=== PATIENT | female | born 1950 | race Caucasian/White ===

== ENCOUNTER 2020-06-22 14:32 | Outpatient (CLI) | payer MEDICARE, MEDICAID, SELFPAY ==
--- NOTE | ~2020-06-22 | CT_ITS ---
EXAMINATION: CT abdomen pelvis wo con EXAM DATE: 06/22/2020 15:13 INDICATION: Gross hematuria. TECHNIQUE: Spiral CT of the abdomen and pelvis was performed without contrast. Axial, coronal and sag ittal images were reviewed. The dose-length product (DLP) for this examination was 147.49 mGy-cm. T he exposure was tailored according to patient size (auto mA exposure control), and iterative reconstr uction (ASIR) was used as additional dose reduction technique. There is no prior study for compariso n. FINDINGS: There is bilateral nephrocalcinosis. There are larger right-sided calyceal stones measuring up to about 7 mm. Atrophic uterus versus hysterectomy. The bladder is unremarkable. The liver, sp argelia, adrenal glands and pancreas are unremarkable. Gallbladder is unremarkable. No biliary obstruc tion. There is no retroperitoneal or pelvic lymphadenopathy. There is moderate scattered arteriosc lerotic disease. The appendix is not positively visualized. There is no pericecal inflammatory change to suggest appe ndicitis. There is severe colonic diverticulosis. There is no adjacent inflammatory change to sugges t diverticulitis. The stomach and small bowel are unremarkable. There is expected amount of colonic stool. No free intraperitoneal gas. The heart is normal in size. There are no pericardial or ple ural effusions. Lungs are hyperinflated. There are no osteoblastic or osteolytic lesions identified . There is severe disc disease at L2-3. IMPRESSION: 1. Nephrocalcinosis. Bilateral nephrolithiasis, larger stone burden on right. 2. Extensive colonic diverticulosis. Reviewed, dictated and finalized at location A.
== END 2020-06-22 14:33 | disposition home or self-care (01) ==
PROVIDERS: PCP Internal Medicine; Visit Provider Urology
DX: R31.0 Gross hematuria (principal); K57.30 Diverticulosis of large intestine without perforation or abscess without bleeding
CPT/HCPCS: 74176

== ENCOUNTER 2020-12-28 15:49 | Outpatient (CLI) | payer MEDICARE, MEDICAID, SELFPAY ==
--- NOTE | ~2020-12-28 | XR_ITS ---
EXAMINATION: XR abdomen/kub 1V EXAM DATE: 12/28/2020 16:08 INDICATION: Kidney stones, right flank pain. TECHNIQUE: Frontal projection of the upper abdomen, frontal projection lower abdomen/pelvis for inter pretation. Correlation is made to CT abdomen 06/22/2020. FINDINGS: Prior CT scan demonstrated nephrocalcinosis. Some larger right-sided stones are identified up to about 7 mm in size. Can't identify definite smaller calcifications on the left, but there is c opious bowel gas overlying the renal contours and pelvis. Nonobstructive bowel gas pattern. Probable chronic hyperinflation causing the flattened hemidiaphragms with costophrenic blunting. There is no o rganomegaly. There are mild bony degenerative changes. IMPRESSION: 1. Right nephrolithiasis. Reviewed, dictated and finalized at location A. IMPRESSION: 1. Right nephrolithiasis.
== END 2020-12-28 15:50 | disposition home or self-care (01) ==
PROVIDERS: PCP Nurse Practitioner Family; Visit Provider Urology
DX: Z87.442 Personal history of urinary calculi (principal)
CPT/HCPCS: 74018

== ENCOUNTER 2021-11-02 14:17 | Outpatient (CLI) | payer OTHER, SELFPAY ==
--- NOTE | 2021-11-03 14:24 | WPDPFTINT ---
PFT Procedure Performed PFT Procedure Performed Spirometry with Pre/Post Bronchodilator Plethysmography (Lung Vol) Diffusing Cap (DLCO) Flow Vol Loop PFT Interpretation Lung volumes were measured with the body plethysmography method. The elevated RV and FRC are indicative of air trapping. The elevated total lung capacity is indicative of lung hyperinflation. Spirometry showed diminished expiratory flow rates and a diminished FEV1 to FVC ratio 44%, indicative of obstructive airway disease. Following administration of a bronchodilator there was significant increase in the forced vital capacity. Lung diffusion capacity is severely reduced at 23% predicted. Flow volume loop is consistent with severe emphysema. Impression: Severe obstructive airway disease with air trapping, lung hyperinflation, and significant response to bronchodilators on this testing. Severely reduced lung diffusion capacity.
--- NOTE | 2021-11-03 14:28 | WPDSIXMINUTE ---
Six Minute Walk Procedure Procedure Performed Pulmonary Stress Test (6 min walk) Six Minute Walk This 6 minutes walk test was carried out with the patient breathing ambient air. The pre walk oxyhemoglobin saturation was 95%. The patient walked 243 m and stopped 3 times for approximately 10 seconds each time due to shortness of breath and weakness. During the walk the oxyhemoglobin saturation remained over 92%. Impression: No evidence of oxyhemoglobin desaturation on this testing.
== END 2021-11-02 14:18 | disposition home or self-care (01) ==
PROVIDERS: PCP Nurse Practitioner Family; Visit Provider Nurse Practitioner
DX: J44.9 Chronic obstructive pulmonary disease, unspecified (principal); R94.2 Abnormal results of pulmonary function studies
CPT/HCPCS: 94060; 94618; 94726; 94729

== ENCOUNTER 2021-12-14 13:36 | Outpatient (CLI) | payer OTHER, SELFPAY ==
--- NOTE | ~2021-12-14 | CT_ITS ---
EXAMINATION: CT diagnostic chest wo con DATE: 12/14/2021 13:59 INDICATION: Lung nodules TECHNIQUE: Computed tomography (CT) of the chest was performed without intravenous contrast. The dose -length product (DLP) was 135.74 mGy-cm. Automated exposure control and iterative reconstruction tech nique were employed. COMPARISON: PET/CT, 03/01/2017 FINDINGS: There is severe emphysema. There are multiple calcified nodules of the lungs, consistent wi th old granulomatous disease. There is a stable 7 mm noncalcified nodule in the superior segment of t he left lower lobe on image 37. There is a 7 mm nodule of the left lower lobe on image 64 which previ ously measured 3 mm. Scarring is noted in the lung apices. There is no pleural effusion or pneumothor ax. The lungs are free of acute opacities. No pathologically enlarged thoracic lymph nodes are identi fied. The heart size is normal. Punctate calcifications in an otherwise normal spleen likely represen t healed granulomatous disease. There is mild thoracic spondylosis. There is severe upper lumbar spon dylosis. IMPRESSION: 1. 7 mm nodule of the left lower lobe with increase in size since the prior examination, granulomatou s disease versus malignancy. Recommend follow-up CT in 3-6 months. Multiple additional stable pulmona ry nodules with and without calcification likely reflect old granulomatous disease. 2. Severe emphysema. Reviewed, dictated and finalized at location A. IMPRESSION: 1. 7 mm nodule of the left lower lobe with increase in size since the prior exa mination, granulomatous disease versus malignancy. Recommend follow-up CT in 3- 6 months. Multiple additional stable pulmonary nodules with and without calcifi cation likely reflect old granulomatous disease. 2. Severe emphysema.
[2021-12-16 21:46] LABS: Angiotensin Converting Enzyme 17 U/L (9-67)
[2021-12-18 02:53] LABS: Legionella pneumophila Ag Ur Not Detected (Not Detected)
[2021-12-20 11:23] LABS: Blastomyces Antibody Negative
== END 2021-12-14 13:37 | disposition home or self-care (01) ==
PROVIDERS: PCP Nurse Practitioner Family; Visit Provider Nurse Practitioner
DX: R91.8 Other nonspecific abnormal finding of lung field (principal); J43.9 Emphysema, unspecified
CPT/HCPCS: 36415; 71250; 82164; 86331; 86606; 86609; 86612; 86698; 87449

== ENCOUNTER 2022-01-16 08:33 | Emergency (ER) | payer OTHER, SELFPAY ==
--- NOTE | ~2022-01-16 | XR_ITS ---
XR chest 2V DATE: 01/16/2022 09:40 INDICATION: Cough, shortness of breath. History of COPD. TECHNIQUE: PA and lateral views COMPARISON: 12/14/2021 CTA chest FINDINGS: Prominent bilateral hyperinflation flattening the diaphragm, consistent with COPD. No pulmonary infiltrate or consolidation, pleural effusion or pulmonary vascular congestion or pneumo thorax is detected. There is a 7 mm nodular density overlying left midlung, corresponding to the superior segment left lo wer lobe nodule noted on 12/14/2021 CT thorax, for which follow-up CT imaging was [facility] Normal heart size. Aortic arch calcification. Diffuse osteopenia. IMPRESSION: COPD 7 mm left lower lobe nodule seminal follow-up CT imaging in 3 6 months is recommended Reviewed, dictated and finalized at location A. IMPRESSION: COPD 7 mm left lower lobe nodule seminal follow-up CT imaging in 3 6 months is recom mended
[2022-01-16 08:39] VITALS: BP 172/100; PULSE 92; RESP 18; TEMP 36.8; O2SAT 94
[2022-01-16 09:40] LABS: Basophils Percent Auto 0.3 % (0.2-1.2); Eosinophils Percent Auto 0.2 % (0-4.4); Hematocrit 50.1 % (37.0-47.0); Hemoglobin 16.5 g/dL (12.0-15.0); Immature Granulocyte Absolute 0.03 K/mm3 (0.00-0.031); Immature Granulocyte Percent A 0.2 % (0-0.5); Lymphocytes Absolute Auto 1.71 K/mm3 (0.9-3.2); Lymphocytes Percent Auto 13.7 % (18.3-44.2); Mean Corpuscular HGB Conc 32.9 g/dl (32-36); Mean Corpuscular Hemoglobin 31.2 pg (26-34); Mean Corpuscular Volume 94.7 fl (80-100); Mean Platelet Volume 10.2 fl (7.4-10.4); Monocytes Percent Auto 8.3 % (2.6-8.5); Neutrophils Absolute Auto 9.6 K/mm3 (1.3-6.7); Neutrophils Percent Auto 77.3 % (45.5-73.1); Platelet Count Result 206 k/mm3 (150-375); Red Blood Count 5.29 M/mm3 (4.2-5.4); Red Cell Distribution Width 12.6 % (11.5-14.5); White Blood Count 12.5 K/mm3 (4.5-10.0)
[2022-01-16 09:48] LABS: Alanine Aminotransferase 12 U/L (6-35); Albumin Level 4.6 g/dL (3.5-5.1); Alkaline Phosphatase 104 U/L (38-126); Anion Gap 10 mmol/L (8-16); Aspartate Amino Transferase 30 U/L (14-36); Bilirubin,Total 1.3 mg/dL (0.2-1.3); Blood Urea Nitrogen 15 mg/dL (7-17); Calcium 9.7 mg/dL (8.4-10.2); Carbon Dioxide 27 mmol/L (22-30); Chloride 103 mmol/L (98-107); Estimated CRCL calculation 29 ml/min; Estimated Glomerular Filt Rate > 60; Glucose 116 mg/dL (65-110); Potassium 3.6 mmol/L (3.4-5.0); Sodium 140 mmol/L (137-145)
[2022-01-16 10:17] LABS: Appearance Urine Cloudy (Clear); Bilirubin Urine 1+ (Negative); Blood Urine 3+ (Negative); Color Urine Amber (Yellow); Glucose Urine UA Negative (Negative); Ketones Urine 2+ mg/dL (Negative); Leukocyte Esterase Ur Negative LEU/UL (Negative); Nitrate Urine Positive (Negative); Protein Urine 3+ mg/dL (Negative); pH Urine 6.5 (5.0-9.0)
[2022-01-16 10:32] LABS: Add Urine Microscopic? YES; Bacteria Urine 4+ /hpf; Mucus Urine Moderate /lpf; RBC Urine >75 /hpf (0-2); Squamous Epithelial Cell Urine Rare /hpf (Few); WBC Urine 21-30 /hpf
[2022-01-16 10:50] LABS: SARS-CoV-2 RNA PCR Negative
--- NOTE | 2022-01-16 11:24 | ED.GENADULT ---
HPI - General Adult General Chief complaint: Weakness Stated complaint: A lot of trouble with breathing Time Seen by Provider: 01/16/22 09:02 History of Present Illness HPI narrative: Patient is a 71-year-old female who presents the ER with shortness of breath. Endorses cough. No fevers or chills or sweats. Reports exertional fatigue began today. Patient reports there is a sick granddaughter who has cough and congestion like she does but no diagnosis of COVID. Patient also has history of recurrent UTIs. She notes her urine has become darker and more foul-smelling. No dysuria. Related Data Home Medications Medication Instructions Recorded Confirmed albuterol sulfate 01/16/22 cefdinir mg 01/16/22 diltiazem HCl PO 01/16/22 diltiazem HCl [Cardizem CD] PO 01/16/22 ergocalciferol (vitamin D2) 01/16/22 [id number] INHALATION 01/16/22 [Trelegy Ellipta] levalbuterol tartrate INHALATION 01/16/22 pravastatin 01/16/22 rivaroxaban [Xarelto] mg 01/16/22 01/16/22 sotalol [Sotalol AF] 01/16/22 Allergies Allergy/AdvReac Type Severity Reaction Status Date / Time morphine Allergy Unknown ITCHING Verified 12/10/15 06:55 Review of Systems Review of Systems: All systems reviewed & are unremarkable except as noted in HPI and below Constitutional: Constitutional: Denies chills, Reports fatigue and Denies fever(s) ENT: Reports nasal congestion and Denies sore throat Cardiovascular: Cardiovascular: Denies chest pain, Denies rapid heart rate and Denies radiating jaw, neck or arm pain Respiratory: Respiratory: Reports chest congestion, Reports cough, Reports dyspnea and Denies wheezing Gastrointestinal: Gastrointestinal: Denies abdominal pain, Denies nausea and Denies vomiting Genitourinary: Genitourinary: Reports nocturia, Denies dysuria and Denies flank pain PMF Past Medical History Medical History (Updated 01/16/22 @ 11:28 by Mitch Car MD) COPD (chronic obstructive pulmonary disease) Hypercholesterolemia Hypertension Kidney stones Social History Social History (Updated 01/16/22 @ 11:26 by Mitch Car MD) Social History: History of tobacco abuse Exam Narrative: GENERAL: Well-appearing, thin/underweight, and in no acute distress. HEAD: Normocephalic, atraumatic. EYES: PERRLA and EOMI. ENT: Mucous membranes moist. CHEST: Clear to auscultation. No respiratory distress. HEART: Regular rate and rhythm. Normal peripheral pulses. ABDOMEN: Soft, nontender, nondistended. EXTREMITIES: Normal range of motion. No edema. SKIN: Warm, dry, no rash. NEURO: Alert and oriented x3. PSYCH: Normal mood and affect. Course Course Emergency Course: Patient informed of results. Discharged on oral antibiotics. Patient did not like cefdinir as it gave her an upset stomach. Vital Signs Vital signs: Vital Signs Temperature 98.3 F 01/16/22 08:39 Pulse Rate 92 01/16/22 08:39 Respiratory Rate 18 01/16/22 08:39 Blood Pressure 172/100 H 01/16/22 08:39 Pulse Oximetry 94 01/16/22 08:39 Temperature 98.3 F 01/16/22 08:39 Pulse Rate 92 01/16/22 08:39 Respiratory Rate 18 01/16/22 08:39 Blood Pressure 172/100 H 01/16/22 08:39 Pulse Oximetry 94 01/16/22 08:39 Medical Decision Making Vital Signs Vital Signs: Vital Signs Temperature 98.3 F 01/16/22 08:39 Pulse Rate 92 01/16/22 08:39 Respiratory Rate 18 01/16/22 08:39 Blood Pressure 172/100 H 01/16/22 08:39 Pulse Oximetry 94 01/16/22 08:39 Temperature 98.3 F 01/16/22 08:39 Pulse Rate 92 01/16/22 08:39 Respiratory Rate 18 01/16/22 08:39 Blood Pressure 172/100 H 01/16/22 08:39 Pulse Oximetry 94 01/16/22 08:39 Lab Data Result diagrams: 01/16/22 09:34 01/16/22 09:34 Labs: Lab Results 01/16/22 01/16/22 01/16/22 Range/Units 09:34 09:34 09:56 WBC 12.5 H (4.5-10.0) K/mm3 RBC 5.29 (4.2-5.4) M/mm3 Hgb 16.5 H (12.0-
== END 2022-01-16 11:45 | disposition home or self-care (01) ==
PROVIDERS: Emergency Provider Emergency Medicine; PCP Nurse Practitioner Family
DX: N39.0 Urinary tract infection, site not specified (principal); Z20.822 Contact with and (suspected) exposure to COVID-19; J44.9 Chronic obstructive pulmonary disease, unspecified; E78.00 Pure hypercholesterolemia, unspecified; I10 Essential (primary) hypertension; Z87.442 Personal history of urinary calculi; Z87.891 Personal history of nicotine dependence
CPT/HCPCS: 36415; 71046; 80053; 81001; 85025; 87077; 87086; 87186; 99283; C9803; U0003; U0005

== ENCOUNTER 2022-01-17 15:31 | Inpatient (IN) | payer OTHER, SELFPAY ==
[2022-01-17] VITALS (7 sets, daily range): BP systolic 150–176; BP diastolic 82–94; PULSE 72–91; RESP 19–22; TEMP 36.3–36.4; O2SAT 91–94; BMI 13.6
--- NOTE | ~2022-01-17 | CT_ITS ---
EXAMINATION: CT abdomen pelvis wo con DATE: 01/17/2022 20:12 INDICATION: left flank pain TECHNIQUE: Computed tomography (CT) of the abdomen and pelvis was performed without intravenous contr ast. Automated exposure control and iterative reconstruction technique were employed. The dose-length product was 159.91 mGy-cm. COMPARISON: 06/22/2020. FINDINGS: Lower thorax: Centrilobular and tree-in-bud opacities in the right middle lobe. Severe emphysematous change. Heavy coronary artery calcification. Mild dilation of the partially visualized thoracic aorta . Liver: Normal. Biliary/Gallbladder: Gallbladder is normal. No bile duct dilation. Pancreas: No mass or duct dilation. Spleen: Granulomas calcifications. Adrenals:No mass. Kidneys: Ectopic right kidney. Bilateral nephrocalcinosis. Multiple bilateral nonobstructive renal ca lcifications. GI tract: Diverticulosis without definite evidence of diverticulitis. No bowel dilation. Appendix not visualized. Mesentery/Peritoneum: No ascites, mass, or free air. Retroperitoneum: No mass. Minimal fusiform dilation of the proximal abdominal aorta. Abdominal arteri al atherosclerosis. Pelvis: Mild bladder wall thickening. Soft Tissues: Soft tissues and body wall unremarkable. Bones: No acute osseous finding. IMPRESSION: Right middle lobe opacities may reflect atypical infection in the appropriate clinical context. Exam limited by the paucity of abdominopelvic fat such that the distal ureters were not definitively visua lized, however there are no suspicious calcifications in the pathway of the distal left ureter. No de finite evidence of obstructive uropathy. Bladder wall thickening as can be seen with cystitis. Reviewed, dictated and finalized at location K. IMPRESSION: Right middle lobe opacities may reflect atypical infection in the appropriate c linical context. Exam limited by the paucity of abdominopelvic fat such that th e distal ureters were not definitively visualized, however there are no suspici ous calcifications in the pathway of the distal left ureter. No definite eviden ce of obstructive uropathy. Bladder wall thickening as can be seen with cystiti s.
--- NOTE | ~2022-01-17 | XR_ITS ---
EXAMINATION: XR chest 1V Exam Date/Time: 01/17/2022 20:17 CDT CLINICAL HISTORY: worsening shortness of breath,hx copd and smoker Comparison: X-ray chest 01/16/2022. CT abdomen and pelvis 01/17/2022. RESULT: Lines, tubes, and devices: None. Lungs and pleura: Severe hyperinflation. Subtle reticulonodular opacities in the right lung base. Cardiomediastinal silhouette: Stable cardiomediastinal silhouette. Other: No acute osseous or upper abdominal finding. IMPRESSION: Right lower lung opacities may reflect atypical infection in the appropriate clinical context. Reviewed, dictated and finalized at location K. IMPRESSION: Right lower lung opacities may reflect atypical infection in the appropriate cl inical context.
--- NOTE | ~2022-01-17 | XR_ITS ---
EXAM: XR abdomen/kub 1V HISTORY: left flank pain, was diagnosed with UTI yesterday . COMPARISON: CT abdomen and pelvis performed on the same date. FINDINGS: Subtle reticulonodular opacities in the right lung base. Normal bowel gas pattern. No orga nomegaly. Multiple right renal calculi. Known left renal calculi are obscured by bowel gas. Regional bones and soft tissues normal for age. IMPRESSION: Demonstration of right renal calculi. Known left calculi are obscured in this exam. Reviewed, dictated and finalized at location K. IMPRESSION: Demonstration of right renal calculi. Known left calculi are obscur ed in this exam.
[2022-01-17 16:14] LABS: Basophils Percent Auto 0.2 % (0.2-1.2); Hematocrit 55.1 % (37.0-47.0); Hemoglobin 18.1 g/dL (12.0-15.0); Immature Granulocyte Absolute 0.03 K/mm3 (0.00-0.031); Immature Granulocyte Percent A 0.2 % (0-0.5); Lymphocytes Absolute Auto 1.75 K/mm3 (0.9-3.2); Lymphocytes Percent Auto 12.2 % (18.3-44.2); Mean Corpuscular HGB Conc 32.8 g/dl (32-36); Mean Corpuscular Hemoglobin 30.9 pg (26-34); Mean Corpuscular Volume 94.2 fl (80-100); Mean Platelet Volume 10.3 fl (7.4-10.4); Monocytes Percent Auto 6.6 % (2.6-8.5); Neutrophils Absolute Auto 11.6 K/mm3 (1.3-6.7); Neutrophils Percent Auto 80.8 % (45.5-73.1); Platelet Count Result 216 k/mm3 (150-375); Red Blood Count 5.85 M/mm3 (4.2-5.4); Red Cell Distribution Width 12.4 % (11.5-14.5); White Blood Count 14.3 K/mm3 (4.5-10.0)
[2022-01-17 16:24] LABS: Alanine Aminotransferase 19 U/L (6-35); Albumin Level 4.4 g/dL (3.5-5.1); Alkaline Phosphatase 109 U/L (38-126); Anion Gap 9 mmol/L (8-16); Aspartate Amino Transferase 40 U/L (14-36); Bilirubin,Total 1.3 mg/dL (0.2-1.3); Blood Urea Nitrogen 25 mg/dL (7-17); Calcium 9.8 mg/dL (8.4-10.2); Carbon Dioxide 28 mmol/L (22-30); Chloride 99 mmol/L (98-107); Estimated CRCL calculation 30 ml/min; Estimated Glomerular Filt Rate > 60; Glucose 205 mg/dL (65-110); Lipase 74 U/L (23-300); Potassium 4.1 mmol/L (3.4-5.0); Sodium 136 mmol/L (137-145)
--- NOTE | 2022-01-17 19:14 | ECG_ITS ---
Measurements Intervals [place] Rate: 78 P: 36 MO: 105 QRS: 85 QRSD: 94 T: 84 QT: 354 QTc: 404 Interpretive Statements SINUS RHYTHM WITH SHORT MO INTERVAL DELAYED PRECORDIAL R/S TRANSITION BORDERLINE ST-T WAVE ABNORMALITY- DIFFUSE LEADS BASELINE ARTIFACT- I, AVR, V3-V6 BORDERLINE ECG Electronically Signed On 01-18-2022 6:40:21 CDT by Robby Mcgee D.O.
--- NOTE | 2022-01-17 19:18 | ED.BACK ---
HPI - Back Pain/Injury General Chief Complaint: Back Pain/Injury Stated Complaint: feeling SOB, back pain (seen in ER yesterday) Time Seen by Provider: 01/17/22 18:56 Source: patient and family Mode of arrival: wheelchair History of Present Illness HPI Narrative: This is a 71 year old female with history kidney stones and COPD who presents for evaluation of worsening left flank pain and shortness of breath. Patient was evaluated in ED yesterday for left back pain and COPD. She was diagnosed with UTI and discharged with prescription for macrobid. Patient's daughter is at bedside to assist with history. She states patient's back pain got worse last night and she is having worsening trouble breathing due to her pain. PAtient states she has been diagnosed with 2 kidney stones in her left kidney and she is only able to take tylenol at home for pain. PAtient also reports worsening cough that is productive with brown phlegm. She denies fever, chills, nausea or vomiting. Related Data Home Medications Medication Instructions Recorded Confirmed albuterol sulfate 2.5 mg CONTINUOUS NEBULIZATION Q4H 01/16/22 01/17/22 PRN diltiazem HCl 120 mg PO DAILY 01/16/22 01/17/22 ergocalciferol (vitamin D2) 1,250 mcg PO Q4AVTJE 01/16/22 01/17/22 dckuftvyrnn-btwjtmxhk-owogmjlq 1 inh INHALATION DAILY 01/16/22 01/17/22 [Trelegy Ellipta] levalbuterol tartrate 2 puff INHALATION Q4H PRN 01/16/22 01/17/22 pravastatin 20 mg PO DAILY 01/16/22 01/17/22 rivaroxaban [Xarelto] 15 mg PO DAILY 01/16/22 01/17/22 sotalol [Sotalol AF] 80 mg PO HS 01/16/22 01/17/22 sotalol [Sotalol AF] 40 mg PO QAM 01/17/22 01/17/22 Allergies Allergy/AdvReac Type Severity Reaction Status Date / Time morphine Allergy Unknown ITCHING Verified 12/10/15 06:55 Review of Systems Review of Systems: All systems reviewed & are unremarkable except as noted in HPI and below Constitutional: Constitutional: Denies chills, Reports fatigue and Denies fever(s) Cardiovascular: Cardiovascular: Reports chest pain (constant daily) and Denies radiating jaw, neck or arm pain Respiratory: Respiratory: Reports cough, Reports dyspnea and Denies wheezing Gastrointestinal: Gastrointestinal: Reports abdominal pain, Denies diarrhea, Denies nausea and Denies vomiting Genitourinary: Genitourinary: Reports flank pain Musculoskeletal: Musculoskeletal: Reports back pain [facility] Past Medical History Medical History (Updated 01/18/22 @ 07:36 by Kelsey Weeks MD) Atrial fibrillation COPD (chronic obstructive pulmonary disease) PFT 11/02/2021: Severe obstructive airway disease with air trapping, lung hyperinflation and significant response to bronchodilators. Severely reduced diffusion capacity Glaucoma Hypercholesterolemia Hypertension Kidney stones Polycythemia secondary to hypoxia Pulmonary nodule 7 mm left lower lobe nodule increased in size compared to prior exam 2016 with recommended follow-up CT scan in March-April Surgical History Surgical History (Updated 01/18/22 @ 01:06 by Maritza Bueno DO) H/O cystoscopy History of 2 sections Family History Family History Father Acute myocardial infarction Hypertension Mother Chronic obstructive pulmonary disease Sibling Chronic obstructive pulmonary disease Hypertension Pulmonary hypertension Social History Social History (Updated 01/18/22 @ 06:25 by Maritza Bueno DO) Social History: She reports that her daughter and 2 grand children recently moved in with her. 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 She denies any significant alcohol use or illicit substance use. Code status: Full code Surrogate decision maker: Diana (daughter) Smoking packs per day: 1 Smoking cigarettes per day: 20.0 Years smoked: 52 Smoking pack-years: 52.00 Smoking status: Former smoker Alcohol intake: never Substance use: ne
[2022-01-17 19:20] LABS: Appearance Urine Clear (Clear); Bilirubin Urine 1+ (Negative); Blood Urine 3+ (Negative); Color Urine Yellow (Yellow); Glucose Urine UA Negative (Negative); Ketones Urine 2+ mg/dL (Negative); Leukocyte Esterase Ur Negative LEU/UL (Negative); Nitrate Urine Negative (Negative); Protein Urine 3+ mg/dL (Negative); Specific Grav Ur >= 1.030 (1.001-1.035); Urobilinogen Urine 0.2 mg/dL (<2.0); pH Urine 5.5 (5.0-9.0)
[2022-01-17 19:27] LABS: Mucus Urine Rare /lpf; RBC Urine >75 /hpf (0-2); Squamous Epithelial Cell Urine Few /hpf (Few); WBC Urine 31-50 /hpf
[2022-01-17 19:34] LABS: Add Urine Microscopic? YES
[2022-01-17] MEDS: ALBUTEROL SULFATE NEB 2.5 MG/3 ML INH 5 MG INHALATION (19:47)
[2022-01-17] MEDS: IPRATROPIUM BR 0.02% INH SOLN 0.5 MG/2.5 ML VIAL INHALATION (19:47)
[2022-01-17 19:51] LABS: Alveolar/Arterial O2 Gradient 34.8 mmHg; Base Excess ABG -2.1 mEq/l (+/-2.0); Carboxyhemoglobin 2.6 % THb (0-2.0); Fractional Inspired Oxygen 21 %; HCO3 ABG 23.5 mEq/l (22.0-26.0); Methemoglobin ABG 0.3 %THb (0-1.5); Oxygen Content ABG 21.4 %vol (16.0-22.0); Oxygen Saturation ABG 91.4 % (95.0-100.0); Oxyhemoglobin 89.2 % THb (90.0-100.0); PCO2 ABG 42.9 mmHg (35.0-45.0); PO2 ABG 63.6 mmHg (80.0-100.0); PO2 FiO2 Ratio Arterial Blood 3.03 %; Reduced Hemoglobin 7.9 %THb (0-5.0); Total Hemoglobin 17.1 g/dL (12.0-18.0); pH ABG 7.356 (7.350-7.450)
[2022-01-17 19:52] LABS: Device ROOM AIR; Modified Allen's Test Pass; Site Drawn LEFT RADIAL
[2022-01-17 20:21] LABS: Lactic Acid Reflex 2.5 mmol/L (0.7-2.0)
[2022-01-17] MEDS: methylPREDNISolone SOD SUCC 125 MG VIAL IV PUSH (20:27)
[2022-01-17] MEDS: ONDANSETRON INJ 4 MG/2 ML VIAL IV PUSH (20:27)
[2022-01-17] MEDS: SODIUM CHLORIDE 0.9% IV 1,000 ML 999 ML IV CONT ×2 (20:28→22:17)
[2022-01-17 20:59] LABS: INR 1.6; Prothrombin Time 18.3 Seconds (11.1-14.7)
[2022-01-17 21:32] LABS: SARS-CoV-2 RNA PCR Negative
--- NOTE | 2022-01-17 22:23 | PC.NURSE ---
Faxed up [facility] at [phone]
[2022-01-17] MEDS: SOTALOL HCL 40 MG TABLET PO (23:01)
[2022-01-17] MEDS: RIVAROXABAN 15 MG TABLET PO (23:01)
--- NOTE | 2022-01-17 23:07 | ADMGEN ---
This patient, Sofi Zeng, was admitted to 2 Medical Room 242-. Patient/family oriented to hospital policies and general routines including ID bracelet, bed and alarms, visiting hours, pain management, procedures, bathroom and other care routines, personal items, smoking policy, room service/diet, and visiting hours. Information on how to activate the Rapid Response Team has been discussed. Patient/Family are encouraged to report perceived risks to care and to ask questions if they do not understand what they are told or what they should do.
[2022-01-17 23:10] LABS: Reflex Lactic Acid Yes or No Add Lactic
[2022-01-17] MEDS: SODIUM CHLORIDE 0.9% IV 1,000 ML 75 ML IV CONT (23:31)
[2022-01-17 23:50] LABS: Lactic Acid 1.5 mmol/L (0.7-2.0)
[2022-01-18] VITALS (21 sets, daily range): BP systolic 122–178; BP diastolic 56–91; PULSE 59–98; RESP 16–22; TEMP 35.9–36.7; O2SAT 91–100; BMI 13.6
[2022-01-18] MEDS: methylPREDNISolone SOD SUCC 40 MG VIAL IV PUSH ×5 (00:33→23:01)
--- NOTE | 2022-01-18 00:57 | PM.IMHP ---
H&P: HPI History of Present Illness Date/Time: 01/18/22 00:57 Chief Complaint: Left back pain, hard time breathing Narrative: 71-year-old female with a past medical history of COPD, atrial fibrillation and hyperlipidemia who presented to the ER from home with back pain and shortness of breath. The patient initially presented to the ER on the with nasal congestion, sinus congestion and chest congestion with shortness of breath and cough for 1 week. She is not having any measured fevers but reports that she felt as if she had a subjective fever a few days ago.. She had been around her granddaughter who had been sick with cough and congestion but was negative for COVID. The patient had noticed that her urine had been darker than usual at that time and was foul-smelling so she had a UA performed which demonstrated consistent with UTI. She denied any dysuria. She reports chronic urinary frequency and urgency with incontinence. Her urine culture since that time has grown out greater than 100 thousand colonies of E coli. The patient was discharged home on nitrofurantoin. She came back to the ER on the as she was having bilateral upper back pain and she was concerned that she may have a kidney stone. She does have a history of nonobstructing right renal stones in the past and she was afraid her pain was due to kidney stones.. She reported that the pain in her back was present on both sides but left greater than right. Her pain was not worse with deep breathing. She reports that she always sleeps sitting upright. However, over the last couple of weeks she has been having increasing orthopnea and paroxysmal nocturnal dyspnea. She has been waking up panic being gasping for air. She has had a cough that has been productive of small amounts light brown sputum. She reports that her symptoms have been briefly relieved by Q 4 nebulizer treatments. She reports occasional right ankle swelling. She reports that the ankle swelling gets better when she gets up and walks. She has no swelling at this time. The patient is cachectic on exam. She states that her heaviest weight ever was 102 lb. She has had a progressive weight loss over the last 4 years. She reports that over the last month she has been having upper abdominal discomfort and nausea with eating. She states that she thinks that is because she is eating too much at once. Her daughter has bought her different types of protein shakes but the patient does not like ice cream or milk shakes. She has been trying eat small frequent meals. She states that she felt so bad yesterday that she only had eaten grapes all day. She reports feeling chronically constipated. She does have a bowel movement each day but is usually a firm bowel movement in usually takes her a lot of effort to passed stool. She states that this is also been going on for about 4 years. She occasionally will have difficulty swallowing food but does not feel as if the food is getting stuck. She states that his takes more effort to swallow at times. This is not changed significantly from her baseline. She denies any heartburn symptoms or dyspepsia. She denies any hematochezia or melena. She reports that she frequently feels fatigued. Over the last week she has been having episodes of hypoxia with with activity. Her oxygen saturations have been dropping down to the mid 80s with activity. She had a 6 minute walk test November 03, 2021 that was negative. She denies having any palpitations or symptoms of atrial fibrillation. She was last admitted the hospital at [facility] in September for atrial fibrillation and required cardioversion. She is vaccinated against COVID with 2 doses of Moderna. She was due for her booster in July but was not able to get it for some reason. She subsequently was tested for COVID while she was hospitalized at [facility] in September and found to be positive at that time. She has not yet received her COVID boost
[2022-01-18] MEDS: IPRATROPIUM BR 0.02% INH SOLN 0.5 MG/2.5 ML VIAL INHALATION ×4 (03:04→20:38)
[2022-01-18] MEDS: ALBUTEROL SULFATE NEB 2.5 MG/3 ML INH 5 MG INHALATION ×4 (03:04→20:39)
[2022-01-18 05:25] LABS: Basophils Percent Auto 0.1 % (0.2-1.2); Hematocrit 47.8 % (37.0-47.0); Hemoglobin 15.5 g/dL (12.0-15.0); Immature Granulocyte Absolute 0.06 K/mm3 (0.00-0.031); Immature Granulocyte Percent A 0.4 % (0-0.5); Lymphocytes Absolute Auto 0.91 K/mm3 (0.9-3.2); Mean Corpuscular HGB Conc 32.4 g/dl (32-36); Mean Corpuscular Hemoglobin 31.1 pg (26-34); Mean Corpuscular Volume 95.8 fl (80-100); Mean Platelet Volume 10.7 fl (7.4-10.4); Monocytes Absolute Auto 0.2 K/mm3 (0.1-0.6); Monocytes Percent Auto 1.3 % (2.6-8.5); Neutrophils Absolute Auto 13.9 K/mm3 (1.3-6.7); Neutrophils Percent Auto 92.2 % (45.5-73.1); Platelet Count Result 198 k/mm3 (150-375); Red Blood Count 4.99 M/mm3 (4.2-5.4); Red Cell Distribution Width 12.3 % (11.5-14.5); White Blood Count 15.1 K/mm3 (4.5-10.0)
[2022-01-18 05:38] LABS: Alanine Aminotransferase 11 U/L (6-35); Albumin Level 3.6 g/dL (3.5-5.1); Alkaline Phosphatase 87 U/L (38-126); Anion Gap 7 mmol/L (8-16); Aspartate Amino Transferase 30 U/L (14-36); Bilirubin,Total 0.5 mg/dL (0.2-1.3); Blood Urea Nitrogen 20 mg/dL (7-17); Calcium 8.9 mg/dL (8.4-10.2); Carbon Dioxide 24 mmol/L (22-30); Chloride 107 mmol/L (98-107); Estimated CRCL calculation 37 ml/min; Estimated Glomerular Filt Rate > 60; Glucose 143 mg/dL (65-110); Sodium 138 mmol/L (137-145)
[2022-01-18 05:50] LABS: Hemoglobin A1C 5.7 % (<5.7)
[2022-01-18] MEDS: SODIUM CHLORIDE 0.9% IV 1,000 ML 75 ML IV CONT (08:22)
[2022-01-18] MEDS: SOTALOL HCL 40 MG TABLET PO (08:23)
[2022-01-18] MEDS: FLUTICASONE/UMECLIDIN/VILANTER 100-62.5-25 MCG ELLIPTA 1 PUFF INHALATION (08:53)
--- NOTE | 2022-01-18 10:27 | PM.IMPN ---
Progress Note: A&P Assessment and Plan (1) Right lower lobe pneumonia: Code(s): J18.9 - Pneumonia, unspecified organism Status: Acute Assessment and Plan: Patient presented with increased shortness of breath and cough CXR showed right lower lung opacities Continue ceftriaxone azithromycin COVID-19 negative Will check influenza, urinary legionella and pneumococcal antigens Supportive care. Expectorants, antipyretics, incentive spirometry, Cornet valve Currently requiring 2 L supplemental oxygen per nasal cannula. Monitor O2 sats and wean oxygen to goal, 92% or above (2) COPD with acute exacerbation: Code(s): J44.1 - Chronic obstructive pulmonary disease with (acute) exacerbation Status: Acute Assessment and Plan: Patient wheezing on presentation, consistent with COPD exacerbation Continue IV Solu-Medrol Schedule DuoNebs q.6h Continue home Trelegy (3) E. coli UTI: Code(s): N39.0 - Urinary tract infection, site not specified; B96.20 - Unspecified Escherichia coli [E. coli] as the cause of diseases classified elsewhere Status: Acute Assessment and Plan: Urine culture from 01/16/2022 with >100k colonies E coli Continue ceftriaxone (4) Hyperglycemia: Code(s): R73.9 - Hyperglycemia, unspecified Status: Acute Assessment and Plan: Blood sugar elevated to 205 secondary to steroids A1c is 5.7 Patient reports history of hyperglycemia while on steroids Fasting glucose 143 this morning. Continue to monitor on AM labs (5) Polycythemia secondary to hypoxia: Code(s): D75.1 - Secondary polycythemia Status: Inactive Assessment and Plan: Place edema worsened from baseline but has improved following rehydration Hemoglobin 15.5 today, hematocrit 47.8 Monitor CBC She appears to be adequately rehydrated and is euvolemic on exam. Will discontinue IV fluids given respiratory illness (6) Severe protein-calorie malnutrition: Code(s): E43 - Unspecified severe protein-calorie malnutrition Status: Acute Assessment and Plan: Patient was severe protein calorie malnutrition secondary to poor intake Continue with regular diet and encourage high-protein foods Dietary supplements Appreciate dietary screening Subjective Date/time seen: 01/18/22 10:27 Interval history: Date of service: 01/18/2022 Sofi Zeng is a 71-year-old female with a history of atrial fibrillation on chronic anticoagulation, COPD, hypertension, hyperlipidemia, and polycythemia who is seen in follow-up for pneumonia and COPD exacerbation. She is still not feeling well today and notes no significant improvement. She endorses shortness of breath, nasal congestion, chest congestion, occasional wheezing, cough occasionally productive of thick clear mucus though she notes she is having difficulty expect rating. She complains of conversational dyspnea as well as KENNEDY with minimal exertion. She is only going from the bed to the bedside commode and has not really been having any more activities than this. She endorses orthopnea but denies PND. She denies abdominal pain, nausea, or vomiting. She is tolerating her breakfast. Denies any issues with urination. Review of Systems Review of Systems: All systems reviewed & are unremarkable except as noted in HPI and below Exam Narrative: General: Cachectic 71-year-old female, sitting up at the bedside, comfortable, NARD Neuro: awake, alert and oriented x4, speech clear, no focal neuro deficits noted HEENMT: normocephalic, atraumatic, EOMI, sclerae anicteric, poor dentition Respiratory: Diminished breath sounds bilaterally without wheezes, nonlabored breathing Cardio: regular rate, regular rhythm with S1-S2 Abdomen: nondistended, normoactive bowel sounds, soft, nontender to palpation Extremities: no edema, erythema, or tenderness to palpation, DP pulses 2+ bilaterally Skin: no rashes or
[2022-01-18 12:09] LABS: Influenza A QL RT-PCR Negative (Negative); Influenza B QL RT-PCR Negative (Negative)
[2022-01-18] MEDS: guaiFENesin 12 HR 600 MG TABCR PO ×2 (13:31→20:07)
[2022-01-18] MEDS: RIVAROXABAN 15 MG TABLET PO (20:08)
[2022-01-18] MEDS: SOTALOL HCL 80 MG TABLET PO (20:08)
[2022-01-18] MEDS: PRAVASTATIN SODIUM 20 MG TABLET PO (20:08)
[2022-01-19] VITALS (21 sets, daily range): BP systolic 118–148; BP diastolic 50–70; PULSE 63–87; RESP 14–20; TEMP 36.3–36.7; O2SAT 92–98
[2022-01-19] MEDS: IPRATROPIUM BR 0.02% INH SOLN 0.5 MG/2.5 ML VIAL INHALATION ×4 (02:27→20:02)
[2022-01-19] MEDS: ALBUTEROL SULFATE NEB 2.5 MG/3 ML INH 5 MG INHALATION ×4 (02:27→20:01)
[2022-01-19] MEDS: methylPREDNISolone SOD SUCC 40 MG VIAL IV PUSH ×3 (05:16→21:01)
[2022-01-19 05:49] LABS: Hematocrit 41.1 % (37.0-47.0); Hemoglobin 13.3 g/dL (12.0-15.0); Mean Corpuscular HGB Conc 32.4 g/dl (32-36); Mean Corpuscular Hemoglobin 31.2 pg (26-34); Mean Corpuscular Volume 96.5 fl (80-100); Mean Platelet Volume 10.8 fl (7.4-10.4); Platelet Count Result 206 k/mm3 (150-375); Red Blood Count 4.26 M/mm3 (4.2-5.4); Red Cell Distribution Width 12.5 % (11.5-14.5); White Blood Count 24.1 K/mm3 (4.5-10.0)
[2022-01-19] MEDS: guaiFENesin 12 HR 600 MG TABCR PO ×2 (08:30→21:00)
[2022-01-19] MEDS: SOTALOL HCL 40 MG TABLET PO (08:31)
[2022-01-19] MEDS: FLUTICASONE/UMECLIDIN/VILANTER 100-62.5-25 MCG ELLIPTA 1 PUFF INHALATION (08:56)
[2022-01-19 09:27] LABS: Anion Gap 4 mmol/L (8-16); Blood Urea Nitrogen 23 mg/dL (7-17); Calcium 9.2 mg/dL (8.4-10.2); Carbon Dioxide 26 mmol/L (22-30); Chloride 108 mmol/L (98-107); Estimated CRCL calculation 37 ml/min; Estimated Glomerular Filt Rate > 60; Glucose 123 mg/dL (65-110); Potassium 3.7 mmol/L (3.4-5.0); Sodium 138 mmol/L (137-145)
--- NOTE | 2022-01-19 15:42 | P.PNIM_ITS ---
Progress Note: A&P Assessment and Plan (1) Right lower lobe pneumonia: Code(s): J18.9 - Pneumonia, unspecified organism Status: Acute Assessment and Plan: Patient presented with increased shortness of breath and cough * CXR showed right lower lung opacities * Transition antibiotics to IV Levaquin * COVID-19 negative. Influenza negative. * Urinary legionella and pneumococcal antigens * Supportive care. Expectorants, antipyretics, incentive spirometry, Cornet valve * Currently requiring 2 L supplemental oxygen per nasal cannula. Monitor O2 sats and wean oxygen to goal, 92% or above (2) COPD with acute exacerbation: Code(s): J44.1 - Chronic obstructive pulmonary disease with (acute) exacerbation Status: Acute Assessment and Plan: Patient wheezing on presentation, consistent with COPD exacerbation * Continue IV Solu-Medrol, weaned to 40 mg q.8h * Scheduled DuoNebs q.6h * Continue home Trelegy * Increase in WBC noted secondary to IV steroids (3) E. coli UTI: Code(s): N39.0 - Urinary tract infection, site not specified; B96.20 - Unspecified Escherichia coli [E. coli] as the cause of diseases classified elsewhere Status: Acute Assessment and Plan: Urine culture from 01/16/2022 with >100k colonies E coli and urine culture from 01/17/2022 with >100k Pseudomonas * Susceptibility report pending from Pseudomonas UTI * Transition to levofloxacin for coverage. This is appropriate based on E coli UTI (4) Hyperglycemia: Code(s): R73.9 - Hyperglycemia, unspecified Status: Acute Assessment and Plan: Blood sugar was slightly elevated following 1st dose of IV steroids * A1c is 5.7 * Patient reports history of hyperglycemia while on steroids * Fasting glucose 123 this morning. Continue to monitor on AM labs (5) Polycythemia secondary to hypoxia: Code(s): D75.1 - Secondary polycythemia Status: Inactive Assessment and Plan: Place edema worsened from baseline but has improved following rehydration * Hemoglobin and hematocrit within normal limits today * Monitor CBC (6) Severe protein-calorie malnutrition: Code(s): E43 - Unspecified severe protein-calorie malnutrition Status: Acute Assessment and Plan: Patient with severe protein calorie malnutrition secondary to poor intake * Continue with regular diet and encourage high-protein foods * Dietary supplements * Appreciate dietary screening (7) Atrial fibrillation: Code(s): I48.91 - Unspecified atrial fibrillation Status: Inactive Assessment and Plan: Rate is controlled * Continue Xarelto for stroke prophylaxis * Continue sotalol * Aware of QT prolonging interaction between sotalol and Levaquin. QTc reviewed and is appropriate. Patient will be monitored on telemetry. * Telemetry reviewed and patient is in sinus rhythm Subjective Date/time seen: 01/19/22 15:42 Interval history: Date of service: 01/19/2022 Sofi Zeng is a 71-year-old female with a history of atrial fibrillation on chronic anticoagulation, COPD, hypertension, hyperlipidemia, and polycythemia who is seen in follow-up for pneumonia and COPD exacerbation. She reports feeling poorly today. She is still feeling short of breath and states she is maybe a little bit worse than yesterday. She reports very minimal exertion today so she is unsure about worsened KENNEDY. She denies wheezing. She endorses cough productive of brownish colored sputum. She reports she has been feeling hot and cold f
--- NOTE | 2022-01-19 15:42 | PM.IMPN ---
Progress Note: A&P Assessment and Plan (1) Right lower lobe pneumonia: Code(s): J18.9 - Pneumonia, unspecified organism Status: Acute Assessment and Plan: Patient presented with increased shortness of breath and cough CXR showed right lower lung opacities Transition antibiotics to IV Levaquin COVID-19 negative. Influenza negative. Urinary legionella and pneumococcal antigens Supportive care. Expectorants, antipyretics, incentive spirometry, Cornet valve Currently requiring 2 L supplemental oxygen per nasal cannula. Monitor O2 sats and wean oxygen to goal, 92% or above (2) COPD with acute exacerbation: Code(s): J44.1 - Chronic obstructive pulmonary disease with (acute) exacerbation Status: Acute Assessment and Plan: Patient wheezing on presentation, consistent with COPD exacerbation Continue IV Solu-Medrol, weaned to 40 mg q.8h Scheduled DuoNebs q.6h Continue home Trelegy Increase in WBC noted secondary to IV steroids (3) E. coli UTI: Code(s): N39.0 - Urinary tract infection, site not specified; B96.20 - Unspecified Escherichia coli [E. coli] as the cause of diseases classified elsewhere Status: Acute Assessment and Plan: Urine culture from 01/16/2022 with >100k colonies E coli and urine culture from 01/17/2022 with >100k Pseudomonas Susceptibility report pending from Pseudomonas UTI Transition to levofloxacin for coverage. This is appropriate based on E coli UTI (4) Hyperglycemia: Code(s): R73.9 - Hyperglycemia, unspecified Status: Acute Assessment and Plan: Blood sugar was slightly elevated following 1st dose of IV steroids A1c is 5.7 Patient reports history of hyperglycemia while on steroids Fasting glucose 123 this morning. Continue to monitor on AM labs (5) Polycythemia secondary to hypoxia: Code(s): D75.1 - Secondary polycythemia Status: Inactive Assessment and Plan: Place edema worsened from baseline but has improved following rehydration Hemoglobin and hematocrit within normal limits today Monitor CBC (6) Severe protein-calorie malnutrition: Code(s): E43 - Unspecified severe protein-calorie malnutrition Status: Acute Assessment and Plan: Patient with severe protein calorie malnutrition secondary to poor intake Continue with regular diet and encourage high-protein foods Dietary supplements Appreciate dietary screening (7) Atrial fibrillation: Code(s): I48.91 - Unspecified atrial fibrillation Status: Inactive Assessment and Plan: Rate is controlled Continue Xarelto for stroke prophylaxis Continue sotalol Aware of QT prolonging interaction between sotalol and Levaquin. QTc reviewed and is appropriate. Patient will be monitored on telemetry. Telemetry reviewed and patient is in sinus rhythm Subjective Date/time seen: 01/19/22 15:42 Interval history: Date of service: 01/19/2022 Sofi Zeng is a 71-year-old female with a history of atrial fibrillation on chronic anticoagulation, COPD, hypertension, hyperlipidemia, and polycythemia who is seen in follow-up for pneumonia and COPD exacerbation. She reports feeling poorly today. She is still feeling short of breath and states she is maybe a little bit worse than yesterday. She reports very minimal exertion today so she is unsure about worsened KENNEDY. She denies wheezing. She endorses cough productive of brownish colored sputum. She reports she has been feeling hot and cold flashes. She denies dysuria, hematuria, urgency, or frequency. States a couple days ago her urine was dark colored. She has not looked at what color her urine is today. She did participated in therapy today and seemed to tolerate this well. She denies dizziness, lightheadedness, weakness. She is eating a bit more but still with overall poor intake. Reports eating about a quarter of her breakfast and lunch. Review
[2022-01-19] MEDS: RIVAROXABAN 15 MG TABLET PO (21:00)
[2022-01-19] MEDS: PRAVASTATIN SODIUM 20 MG TABLET PO (21:00)
[2022-01-19] MEDS: SOTALOL HCL 80 MG TABLET PO (21:01)
[2022-01-20] VITALS (19 sets, daily range): BP systolic 153–164; BP diastolic 72–81; PULSE 59–85; RESP 14–18; TEMP 36.2–37; O2SAT 93–98
[2022-01-20] MEDS: ALBUTEROL SULFATE NEB 2.5 MG/3 ML INH 5 MG INHALATION ×4 (02:00→19:57)
[2022-01-20] MEDS: IPRATROPIUM BR 0.02% INH SOLN 0.5 MG/2.5 ML VIAL INHALATION ×4 (02:00→19:58)
[2022-01-20] MEDS: methylPREDNISolone SOD SUCC 40 MG VIAL IV PUSH ×3 (05:34→16:50)
[2022-01-20 05:58] LABS: Hematocrit 39.2 % (37.0-47.0); Hemoglobin 12.5 g/dL (12.0-15.0); Mean Corpuscular HGB Conc 31.9 g/dl (32-36); Mean Corpuscular Hemoglobin 30.6 pg (26-34); Mean Corpuscular Volume 95.8 fl (80-100); Mean Platelet Volume 10.8 fl (7.4-10.4); Platelet Count Result 222 k/mm3 (150-375); Red Blood Count 4.09 M/mm3 (4.2-5.4); Red Cell Distribution Width 12.4 % (11.5-14.5); White Blood Count 21.8 K/mm3 (4.5-10.0)
[2022-01-20 06:18] LABS: Anion Gap 4 mmol/L (8-16); Blood Urea Nitrogen 27 mg/dL (7-17); Calcium 9.1 mg/dL (8.4-10.2); Carbon Dioxide 29 mmol/L (22-30); Chloride 107 mmol/L (98-107); Estimated CRCL calculation 32 ml/min; Estimated Glomerular Filt Rate > 60; Glucose 144 mg/dL (65-110); Potassium 3.6 mmol/L (3.4-5.0); Sodium 140 mmol/L (137-145)
[2022-01-20 07:15] LABS: Lymphocytes Absolute Manual 0.43 K/mm3 (1.1-4.5); Neutrophils Percent Manual 98 % (46-73); Platelet Estimate Adequate (Adequate); Total Cells Counted 100
--- NOTE | 2022-01-20 08:21 | PCPTNOTE ---
Patient refused treatment this session due to patient wanting breathing treatment prior to therapy. RN aware.
[2022-01-20] MEDS: FLUTICASONE/UMECLIDIN/VILANTER 100-62.5-25 MCG ELLIPTA 1 PUFF INHALATION (08:27)
[2022-01-20] MEDS: SOTALOL HCL 40 MG TABLET PO (08:33)
[2022-01-20] MEDS: guaiFENesin 12 HR 600 MG TABCR PO ×2 (08:34→20:26)
--- NOTE | 2022-01-20 14:37 | P.PNIM_ITS ---
Progress Note: A&P Assessment and Plan (1) Right lower lobe pneumonia: Code(s): J18.9 - Pneumonia, unspecified organism Status: Acute Assessment and Plan: Patient presented with increased shortness of breath and cough * CXR showed right lower lung opacities * Continue IV Levaquin * COVID-19 negative. Influenza negative. * Urinary legionella and pneumococcal antigens pending * Supportive care. Expectorants, antipyretics, incentive spirometry, Cornet valve * Currently requiring 2 L supplemental oxygen per nasal cannula. Monitor O2 sats and wean oxygen to goal, 92% or above (2) COPD with acute exacerbation: Code(s): J44.1 - Chronic obstructive pulmonary disease with (acute) exacerbation Status: Acute Assessment and Plan: Patient wheezing on presentation, consistent with COPD exacerbation * Continue IV Solu-Medrol, weaned to 40 mg q.12h. * Scheduled DuoNebs q.6h * Continue home Trelegy * Increase in WBC noted secondary to IV steroids (3) E. coli UTI: Code(s): N39.0 - Urinary tract infection, site not specified; B96.20 - Unspecified Escherichia coli [E. coli] as the cause of diseases classified elsewhere Status: Acute Assessment and Plan: Urine culture from 01/16/2022 with >100k colonies E coli and urine culture from 01/17/2022 with >100k Pseudomonas * Continue IV Levaquin which is appropriate for both E. coli and pseudomonas based on susceptibility report (4) Hyperglycemia: Code(s): R73.9 - Hyperglycemia, unspecified Status: Acute Assessment and Plan: Blood sugar was slightly elevated following 1st dose of IV steroids * A1c is 5.7 * Patient reports history of hyperglycemia while on steroids * Fasting glucose 144 this morning. Continue to monitor on AM labs. Expect improvement as steroids are weaned. (5) Polycythemia secondary to hypoxia: Code(s): D75.1 - Secondary polycythemia Status: Inactive Assessment and Plan: Polycythemia worsened from baseline but improved following gentle rehydration * Hemoglobin and hematocrit within normal limits today * Monitor CBC (6) Severe protein-calorie malnutrition: Code(s): E43 - Unspecified severe protein-calorie malnutrition Status: Acute Assessment and Plan: Patient with severe protein calorie malnutrition secondary to poor intake * Continue with regular diet and encourage high-protein foods * Dietary supplements * Appreciate dietary screening (7) Atrial fibrillation: Code(s): I48.91 - Unspecified atrial fibrillation Status: Inactive Assessment and Plan: Rate is controlled * Continue Xarelto for stroke prophylaxis * Continue sotalol * Aware of QT prolonging interaction between sotalol and Levaquin. QTc reviewed and is appropriate. Patient will be monitored on telemetry. * Telemetry reviewed and patient is in sinus rhythm Subjective Date/time seen: 01/20/22 14:37 Interval history: Date of service: 01/20/2022 Sofi Zeng is a 71-year-old female with a history of atrial fibrillation on chronic anticoagulation, COPD, hypertension, hyperlipidemia, and polycythemia who is seen in follow-up for pneumonia and COPD exacerbation. She feels a little better today. Continues to endorse persistent shortness breath. She is not having much activity aside from going from the bed to the bedside commode. She denies wheezing. She does endorse cough and states not having any improvement with the Mucinex and it is not breaking up her cough. She reports low b
--- NOTE | 2022-01-20 14:37 | PM.IMPN ---
Progress Note: A&P Assessment and Plan (1) Right lower lobe pneumonia: Code(s): J18.9 - Pneumonia, unspecified organism Status: Acute Assessment and Plan: Patient presented with increased shortness of breath and cough CXR showed right lower lung opacities Continue IV Levaquin COVID-19 negative. Influenza negative. Urinary legionella and pneumococcal antigens pending Supportive care. Expectorants, antipyretics, incentive spirometry, Cornet valve Currently requiring 2 L supplemental oxygen per nasal cannula. Monitor O2 sats and wean oxygen to goal, 92% or above (2) COPD with acute exacerbation: Code(s): J44.1 - Chronic obstructive pulmonary disease with (acute) exacerbation Status: Acute Assessment and Plan: Patient wheezing on presentation, consistent with COPD exacerbation Continue IV Solu-Medrol, weaned to 40 mg q.12h. Scheduled DuoNebs q.6h Continue home Trelegy Increase in WBC noted secondary to IV steroids (3) E. coli UTI: Code(s): N39.0 - Urinary tract infection, site not specified; B96.20 - Unspecified Escherichia coli [E. coli] as the cause of diseases classified elsewhere Status: Acute Assessment and Plan: Urine culture from 01/16/2022 with >100k colonies E coli and urine culture from 01/17/2022 with >100k Pseudomonas Continue IV Levaquin which is appropriate for both E. coli and pseudomonas based on susceptibility report (4) Hyperglycemia: Code(s): R73.9 - Hyperglycemia, unspecified Status: Acute Assessment and Plan: Blood sugar was slightly elevated following 1st dose of IV steroids A1c is 5.7 Patient reports history of hyperglycemia while on steroids Fasting glucose 144 this morning. Continue to monitor on AM labs. Expect improvement as steroids are weaned. (5) Polycythemia secondary to hypoxia: Code(s): D75.1 - Secondary polycythemia Status: Inactive Assessment and Plan: Polycythemia worsened from baseline but improved following gentle rehydration Hemoglobin and hematocrit within normal limits today Monitor CBC (6) Severe protein-calorie malnutrition: Code(s): E43 - Unspecified severe protein-calorie malnutrition Status: Acute Assessment and Plan: Patient with severe protein calorie malnutrition secondary to poor intake Continue with regular diet and encourage high-protein foods Dietary supplements Appreciate dietary screening (7) Atrial fibrillation: Code(s): I48.91 - Unspecified atrial fibrillation Status: Inactive Assessment and Plan: Rate is controlled Continue Xarelto for stroke prophylaxis Continue sotalol Aware of QT prolonging interaction between sotalol and Levaquin. QTc reviewed and is appropriate. Patient will be monitored on telemetry. Telemetry reviewed and patient is in sinus rhythm Subjective Date/time seen: 01/20/22 14:37 Interval history: Date of service: 01/20/2022 Sofi Zeng is a 71-year-old female with a history of atrial fibrillation on chronic anticoagulation, COPD, hypertension, hyperlipidemia, and polycythemia who is seen in follow-up for pneumonia and COPD exacerbation. She feels a little better today. Continues to endorse persistent shortness breath. She is not having much activity aside from going from the bed to the bedside commode. She denies wheezing. She does endorse cough and states not having any improvement with the Mucinex and it is not breaking up her cough. She reports low back pain had improved. Denies nausea or vomiting. No fevers or chills. Appetite is improving and she is eating most of her tray. Review of Systems Review of Systems: All systems reviewed & are unremarkable except as noted in HPI and below Exam Narrative: General: Cachectic 71-year-old female, sitting up at the bedside, comfortable, NARD Neuro: awake, alert and oriented x4, speech clear, no focal neuro deficits
[2022-01-20] MEDS: RIVAROXABAN 15 MG TABLET PO (20:26)
[2022-01-20] MEDS: PRAVASTATIN SODIUM 20 MG TABLET PO (20:26)
[2022-01-20] MEDS: SOTALOL HCL 80 MG TABLET PO (20:26)
[2022-01-21] VITALS (22 sets, daily range): BP systolic 138–185; BP diastolic 66–84; PULSE 56–82; RESP 12–20; TEMP 36.6–36.8; O2SAT 93–99
[2022-01-21] MEDS: ALBUTEROL SULFATE NEB 2.5 MG/3 ML INH 5 MG INHALATION ×4 (01:58→21:15)
[2022-01-21] MEDS: IPRATROPIUM BR 0.02% INH SOLN 0.5 MG/2.5 ML VIAL INHALATION ×4 (01:59→21:16)
[2022-01-21] MEDS: methylPREDNISolone SOD SUCC 40 MG VIAL IV PUSH ×2 (05:28→18:22)
[2022-01-21 06:36] LABS: Hematocrit 37.7 % (37.0-47.0); Hemoglobin 12.4 g/dL (12.0-15.0); Mean Corpuscular HGB Conc 32.9 g/dl (32-36); Mean Corpuscular Hemoglobin 31.7 pg (26-34); Mean Corpuscular Volume 96.4 fl (80-100); Mean Platelet Volume 10.5 fl (7.4-10.4); Platelet Count Result 221 k/mm3 (150-375); Red Blood Count 3.91 M/mm3 (4.2-5.4); Red Cell Distribution Width 12.3 % (11.5-14.5); White Blood Count 16.1 K/mm3 (4.5-10.0)
--- NOTE | 2022-01-21 06:49 | P.PNIM_ITS ---
Progress Note: A&P Assessment and Plan (1) Right lower lobe pneumonia: Code(s): J18.9 - Pneumonia, unspecified organism Status: Acute Assessment and Plan: Patient presented with increased shortness of breath and cough * CXR showed right lower lung opacities * Transition to PO levofloxacin on 01/23. IV dose was given today and patient is on Q48 hr renal dosing. * COVID-19 negative. Influenza negative. * Urinary legionella and pneumococcal antigens pending. * Supportive care. Expectorants, antipyretics, incentive spirometry, Cornet valve * Currently requiring 2 L supplemental oxygen per nasal cannula. Monitor O2 sats and wean oxygen to goal, 92% or above. * Home O2 Evaluation today. (2) COPD with acute exacerbation: Code(s): J44.1 - Chronic obstructive pulmonary disease with (acute) exacerbation Status: Acute Assessment and Plan: Patient wheezing on presentation, consistent with COPD exacerbation. Patient comfortable today. * On IV Solu-Medrol, weaned to 40 mg q.12h, will transition to PO steroids tomorrow. * Scheduled DuoNebs q.6h * Continue home Trelegy * Improving WBC count today noted secondary to IV steroids (3) E. coli UTI: Code(s): N39.0 - Urinary tract infection, site not specified; B96.20 - Unspecified Escherichia coli [E. coli] as the cause of diseases classified elsewhere Status: Acute Assessment and Plan: Urine culture from 01/16/2022 with >100k colonies E coli and urine culture from 01/17/2022 with >100k Pseudomonas * Continue Levaquin which is appropriate for both E. coli and pseudomonas based on susceptibility report (4) Hyperglycemia: Code(s): R73.9 - Hyperglycemia, unspecified Status: Acute Assessment and Plan: Blood sugar was slightly elevated following 1st dose of IV steroids * A1c is 5.7 * Patient reports history of hyperglycemia while on steroids * Fasting glucose 145 this morning. Continue to monitor on AM labs. Expect improvement as steroids are weaned. (5) Polycythemia secondary to hypoxia: Code(s): D75.1 - Secondary polycythemia Status: Inactive Assessment and Plan: Polycythemia has resolved at this time following gentle hydration. * Monitor CBC (6) Severe protein-calorie malnutrition: Code(s): E43 - Unspecified severe protein-calorie malnutrition Status: Acute Assessment and Plan: Patient with severe protein calorie malnutrition secondary to poor intake * Continue with regular diet and encourage high-protein foods * Dietary supplements * Dietary has seen this patient and advised Ensure Clear TID with meals, and will reevaluate Q 3 days. (7) Atrial fibrillation: Code(s): I48.91 - Unspecified atrial fibrillation Status: Inactive Assessment and Plan: Rate is controlled * Continue Xarelto for stroke prophylaxis * Continue sotalol * Aware of QT prolonging interaction between sotalol and Levaquin. Patient will be monitored on telemetry. * Telemetry reviewed and patient is in sinus rhythm. * Repeat EKG today. Subjective Date/time seen: 01/21/22 06:49 Interval history: Date of service: 01/20/2022 Sofi Zeng is a 71-year-old female with a history of atrial fibrillation on chronic anticoagulation, COPD, hypertension, hyperlipidemia, and polycythemia who is seen in follow-up for pneumonia and COPD exacerbation. She is feeling tired today, but overall better. She denies chest pain, worsening shortness of breath, fevers, chills. She en
--- NOTE | 2022-01-21 06:49 | PM.IMPN ---
Progress Note: A&P Assessment and Plan (1) Right lower lobe pneumonia: Code(s): J18.9 - Pneumonia, unspecified organism Status: Acute Assessment and Plan: Patient presented with increased shortness of breath and cough CXR showed right lower lung opacities Transition to PO levofloxacin on 01/23. IV dose was given today and patient is on Q48 hr renal dosing. COVID-19 negative. Influenza negative. Urinary legionella and pneumococcal antigens pending. Supportive care. Expectorants, antipyretics, incentive spirometry, Cornet valve Currently requiring 2 L supplemental oxygen per nasal cannula. Monitor O2 sats and wean oxygen to goal, 92% or above. Home O2 Evaluation today. (2) COPD with acute exacerbation: Code(s): J44.1 - Chronic obstructive pulmonary disease with (acute) exacerbation Status: Acute Assessment and Plan: Patient wheezing on presentation, consistent with COPD exacerbation. Patient comfortable today. On IV Solu-Medrol, weaned to 40 mg q.12h, will transition to PO steroids tomorrow. Scheduled DuoNebs q.6h Continue home Trelegy Improving WBC count today noted secondary to IV steroids (3) E. coli UTI: Code(s): N39.0 - Urinary tract infection, site not specified; B96.20 - Unspecified Escherichia coli [E. coli] as the cause of diseases classified elsewhere Status: Acute Assessment and Plan: Urine culture from 01/16/2022 with >100k colonies E coli and urine culture from 01/17/2022 with >100k Pseudomonas Continue Levaquin which is appropriate for both E. coli and pseudomonas based on susceptibility report (4) Hyperglycemia: Code(s): R73.9 - Hyperglycemia, unspecified Status: Acute Assessment and Plan: Blood sugar was slightly elevated following 1st dose of IV steroids A1c is 5.7 Patient reports history of hyperglycemia while on steroids Fasting glucose 145 this morning. Continue to monitor on AM labs. Expect improvement as steroids are weaned. (5) Polycythemia secondary to hypoxia: Code(s): D75.1 - Secondary polycythemia Status: Inactive Assessment and Plan: Polycythemia has resolved at this time following gentle hydration. Monitor CBC (6) Severe protein-calorie malnutrition: Code(s): E43 - Unspecified severe protein-calorie malnutrition Status: Acute Assessment and Plan: Patient with severe protein calorie malnutrition secondary to poor intake Continue with regular diet and encourage high-protein foods Dietary supplements Dietary has seen this patient and advised Ensure Clear TID with meals, and will reevaluate Q 3 days. (7) Atrial fibrillation: Code(s): I48.91 - Unspecified atrial fibrillation Status: Inactive Assessment and Plan: Rate is controlled Continue Xarelto for stroke prophylaxis Continue sotalol Aware of QT prolonging interaction between sotalol and Levaquin. Patient will be monitored on telemetry. Telemetry reviewed and patient is in sinus rhythm. Repeat EKG today. Subjective Date/time seen: 01/21/22 06:49 Interval history: Date of service: 01/20/2022 Sofi Zeng is a 71-year-old female with a history of atrial fibrillation on chronic anticoagulation, COPD, hypertension, hyperlipidemia, and polycythemia who is seen in follow-up for pneumonia and COPD exacerbation. She is feeling tired today, but overall better. She denies chest pain, worsening shortness of breath, fevers, chills. She endorses improved appetite, and enjoys the ensure clear drinks she has been getting. I encouraged continued PO intake, as well as undergoing home O2 evaluation today for possible discharge tomorrow. She acknowledged and is in agreement. Review of Systems Review of Systems: All systems reviewed & are unremarkable except as noted in HPI and below Exam Narrative: General: Cachectic 71-year-old female, sitting up at the bedside, co
[2022-01-21 06:50] LABS: Anion Gap 3 mmol/L (8-16); Blood Urea Nitrogen 26 mg/dL (7-17); Calcium 8.5 mg/dL (8.4-10.2); Carbon Dioxide 30 mmol/L (22-30); Chloride 105 mmol/L (98-107); Estimated CRCL calculation 37 ml/min; Estimated Glomerular Filt Rate > 60; Glucose 145 mg/dL (65-110); Potassium 3.4 mmol/L (3.4-5.0); Sodium 138 mmol/L (137-145)
[2022-01-21] MEDS: guaiFENesin 12 HR 600 MG TABCR PO ×2 (08:50→20:57)
[2022-01-21] MEDS: SOTALOL HCL 40 MG TABLET PO (08:50)
--- NOTE | 2022-01-21 10:55 | PCNFU ---
Nutrition Follow-Up Complete: Inadequate Energy Intake as related to COPD as evidenced by BMI: 13.6 underweight Goal: Adequate intake of at least 75% of meals Pt is progressing towards goal, continue current goal. Pt current nutrition is regular Last recorded weight is 32.6 kg. Bowel Motility: no BM reported Labs Reviewed: BUN 26, Cr .60, Glu 145 Meds Noted: Albuterol, Diltiazem, Guaifenesin, Ipratropium [place], Levofloxacin/Dextrose, Methylprednisolone Sodium Succinate, Sotalol Hcl Skin: WNL Additional Notes: Pt has reported an increased appetite and an increased food consumption. Pt also reports enjoying Ensure Clear dietary supplements which provide 240 kcal and 8 grams of protein. Pt is tolerating meals will with overall intake of 50% reported. Agree with diet orders. Monitor: Will monitor every 5 days. .
--- NOTE | 2022-01-21 11:29 | ECG_ITS ---
Measurements Intervals [place] Rate: 66 P: 83 VA: 111 QRS: 78 QRSD: 93 T: 89 QT: 350 QTc: 369 Interpretive Statements SINUS RHYTHM WITH SHORT VA INTERVAL DELAYED PRECORDIAL R/S TRANSITION NONSPECIFIC T-WAVE ABNORMALITY- HIGH LATERAL LEADS BASELINE WANDER- II, III, AVR, AVL, AVF BORDERLINE ECG Electronically Signed On 01-21-2022 13:05:53 CDT by Robby Mcgee D.O.
[2022-01-21] MEDS: FLUTICASONE/UMECLIDIN/VILANTER 100-62.5-25 MCG ELLIPTA 1 PUFF INHALATION (11:30)
--- NOTE | 2022-01-21 12:18 | PCNSR ---
On 01/21/22, the student, Rodney Davenport, provided care and completed [facility] documentation on this patient. I have reviewed the student's documentation and agree with the findings.
--- NOTE | 2022-01-21 15:01 | PCRCNOTE ---
ATTEMPTED TO COMPLETE HOME O2 EVAL, PT UNABLE TO PERFORM AT THIS TIME, SHE IS FEELING SOB AND WEAK/TIRED. RN OSCAR NOTIFIED AND AGREED EVAL NEEDS TO BE DONE AT A LATER TIME. ROOM AIR SAT AT 1500 IS 95% AT REST.
[2022-01-21] MEDS: RIVAROXABAN 15 MG TABLET PO (20:57)
[2022-01-21] MEDS: PRAVASTATIN SODIUM 20 MG TABLET PO (20:57)
[2022-01-21] MEDS: SOTALOL HCL 80 MG TABLET PO (20:58)
[2022-01-22] VITALS (16 sets, daily range): BP systolic 146–158; BP diastolic 73–79; PULSE 58–77; RESP 12–20; TEMP 36.3–37.2; O2SAT 94–99
[2022-01-22 00:47] LABS: Pneumococcal Antigen Urine Not Detected (Not Detected)
[2022-01-22] MEDS: ALBUTEROL SULFATE NEB 2.5 MG/3 ML INH 5 MG INHALATION ×4 (02:26→20:58)
[2022-01-22] MEDS: IPRATROPIUM BR 0.02% INH SOLN 0.5 MG/2.5 ML VIAL INHALATION ×4 (02:26→20:58)
[2022-01-22] MEDS: guaiFENesin 12 HR 600 MG TABCR PO (08:39)
[2022-01-22] MEDS: predniSONE 20 MG TABLET 40 MG PO (08:39)
[2022-01-22] MEDS: SOTALOL HCL 40 MG TABLET PO (08:40)
[2022-01-22] MEDS: FLUTICASONE/UMECLIDIN/VILANTER 100-62.5-25 MCG ELLIPTA 1 PUFF INHALATION (09:02)
--- NOTE | 2022-01-22 12:04 | P.PNIM_ITS ---
Progress Note: A&P Assessment and Plan (1) Right lower lobe pneumonia: Code(s): J18.9 - Pneumonia, unspecified organism Status: Acute Assessment and Plan: Patient presented with increased shortness of breath and cough * CXR showed right lower lung opacities * Transition to PO levofloxacin on 01/23. * COVID-19 negative. Influenza negative. * Plan dc in 1-2 days time (2) COPD with acute exacerbation: Code(s): J44.1 - Chronic obstructive pulmonary disease with (acute) exacerbation Status: Acute Assessment and Plan: Patient wheezing on presentation, consistent with COPD exacerbation. * On IV Solu-Medrol, weaned to 40 mg q.12h, will transition to PO steroids tomorrow. * Scheduled DuoNebs q.6h * Continue home Trelegy * Wcc high secondary to steroids (3) E. coli UTI: Code(s): N39.0 - Urinary tract infection, site not specified; B96.20 - Unspecified Escherichia coli [E. coli] as the cause of diseases classified elsewhere Status: Acute Assessment and Plan: Urine culture from 01/16/2022 with >100k colonies E coli and urine culture from 01/17/2022 with >100k Pseudomonas * sensitive to levaquin continue oral for 5 days started yesterday * pt had 4 days of IV levaquin * rpt UA today (4) Hyperglycemia: Code(s): R73.9 - Hyperglycemia, unspecified Status: Acute Assessment and Plan: * A1c is 5.7 * sugars more stable at 145 (5) Polycythemia secondary to hypoxia: Code(s): D75.1 - Secondary polycythemia Status: Inactive Assessment and Plan: Polycythemia has resolved at this time following gentle hydration. * Hb is 12 (6) Severe protein-calorie malnutrition: Code(s): E43 - Unspecified severe protein-calorie malnutrition Status: Acute Assessment and Plan: Patient with severe protein calorie malnutrition secondary to poor intake * add Prilosec * Dietary supplements (7) Atrial fibrillation: Code(s): I48.91 - Unspecified atrial fibrillation Status: Inactive Assessment and Plan: Rate is controlled * Continue Xarelto * Continue sotalol * sotalol and levaquin have interaction Subjective Date/time seen: 01/22/22 12:04 Interval history: Sofi K Azucena is a 71-year-old female with a history of atrial fibrillation on chronic anticoagulation, COPD, UTI, hypertension, hyperlipidemia, and polycythemia who is seen in follow-up for pneumonia and COPD exacerbation. 01/22 Pt feels like she is getting better, discussed drinking ensure to get stronger and trying to quit smoking completely Review of Systems Review of Systems: All systems reviewed & are unremarkable except as noted in HPI and below Exam Const: General: other (thin tired weak ) HENMT: Head: normal to inspection Resp: Effort & Inspection: no respiratory distress Auscultation: wheezes (bilateral wheezes in both lungs scattered ) Cardio: Rate: regular rate Rhythm: regular rhythm GI: Inspection: normal to inspection GI Palp: No abdominal tenderness, No Guarding due to palpation present (GI) and No Hepatomegaly present Auscultation: normal bowel sounds Neuro: General: oriented to person Objective Data Vital Signs Vital Signs: Vital Signs - 24 hr 01/21/22 14:00 01/21/22 14:36 01/21/22 14:50 Temperature 36.8 C
--- NOTE | 2022-01-22 12:04 | PM.IMPN ---
Progress Note: A&P Assessment and Plan (1) Right lower lobe pneumonia: Code(s): J18.9 - Pneumonia, unspecified organism Status: Acute Assessment and Plan: Patient presented with increased shortness of breath and cough CXR showed right lower lung opacities Transition to PO levofloxacin on 01/23. COVID-19 negative. Influenza negative. Plan dc in 1-2 days time (2) COPD with acute exacerbation: Code(s): J44.1 - Chronic obstructive pulmonary disease with (acute) exacerbation Status: Acute Assessment and Plan: Patient wheezing on presentation, consistent with COPD exacerbation. On IV Solu-Medrol, weaned to 40 mg q.12h, will transition to PO steroids tomorrow. Scheduled DuoNebs q.6h Continue home Trelegy [facility] high secondary to steroids (3) E. coli UTI: Code(s): N39.0 - Urinary tract infection, site not specified; B96.20 - Unspecified Escherichia coli [E. coli] as the cause of diseases classified elsewhere Status: Acute Assessment and Plan: Urine culture from 01/16/2022 with >100k colonies E coli and urine culture from 01/17/2022 with >100k Pseudomonas sensitive to levaquin continue oral for 5 days started yesterday pt had 4 days of IV levaquin rpt UA today (4) Hyperglycemia: Code(s): R73.9 - Hyperglycemia, unspecified Status: Acute Assessment and Plan: A1c is 5.7 sugars more stable at 145 (5) Polycythemia secondary to hypoxia: Code(s): D75.1 - Secondary polycythemia Status: Inactive Assessment and Plan: Polycythemia has resolved at this time following gentle hydration. Hb is 12 (6) Severe protein-calorie malnutrition: Code(s): E43 - Unspecified severe protein-calorie malnutrition Status: Acute Assessment and Plan: Patient with severe protein calorie malnutrition secondary to poor intake add Prilosec Dietary supplements (7) Atrial fibrillation: Code(s): I48.91 - Unspecified atrial fibrillation Status: Inactive Assessment and Plan: Rate is controlled Continue Xarelto Continue sotalol sotalol and levaquin have interaction Subjective Date/time seen: 01/22/22 12:04 Interval history: Sofi Zeng is a 71-year-old female with a history of atrial fibrillation on chronic anticoagulation, COPD, UTI, hypertension, hyperlipidemia, and polycythemia who is seen in follow-up for pneumonia and COPD exacerbation. 01/22 Pt feels like she is getting better, discussed drinking ensure to get stronger and trying to quit smoking completely Review of Systems Review of Systems: All systems reviewed & are unremarkable except as noted in HPI and below Exam Const: General: other (thin tired weak ) HENMT: Head: normal to inspection Resp: Effort & Inspection: no respiratory distress Auscultation: wheezes (bilateral wheezes in both lungs scattered ) Cardio: Rate: regular rate Rhythm: regular rhythm GI: Inspection: normal to inspection GI Palp: No abdominal tenderness, No Guarding due to palpation present (GI) and No Hepatomegaly present Auscultation: normal bowel sounds Neuro: General: oriented to person Objective Data Vital Signs Vital Signs: Vital Signs - 24 hr 01/21/22 14:00 01/21/22 14:36 01/21/22 14:50 Temperature 36.8 C Pulse Rate 72 62 63 Respiratory Rate 16 14 14 Blood Pressure 158/66 H Pulse Oximetry 99 01/21/22 15:40 01/21/22 16:00 01/21/22 20:00 Temperature Pulse Rate 67 Respiratory Rate Blood Pressure Pulse Oximetry 97 97 01/21/22 20:58 01/21/22 21:16 01/21/22 21:23 Temperature Pulse Rate 71 64 68 Respiratory Rate 12 12 Blood Pressure Pulse Oximetry 97 01/21/22 22:00 01/22/22 02:27 01/22/22 02:33 Temperature 36.6 C Pulse Rate 71 63 63 Respiratory Rate 20 14 12 Blood Pressure 185/84 H Pulse Oximetry 99 01/22/22 06:00 01/22/22 08:55 01/22/22 09:01 Temp
[2022-01-22 13:56] LABS: Appearance Urine Clear (Clear); Bilirubin Urine Negative (Negative); Blood Urine 3+ (Negative); Color Urine Yellow (Yellow); Glucose Urine UA 2+ mg/dL (Negative); Ketones Urine Negative (Negative); Leukocyte Esterase Ur Negative LEU/UL (Negative); Mucus Urine Rare /lpf; Nitrate Urine Negative (Negative); Protein Urine Trace mg/dL (Negative); RBC Urine >75 /hpf (0-2); Squamous Epithelial Cell Urine Occasional /hpf (Few); Urobilinogen Urine 0.2 mg/dL (<2.0); pH Urine 6.5 (5.0-9.0)
[2022-01-22 13:57] LABS: Add Urine Microscopic? YES
[2022-01-22 20:20] LABS: Legionella pneumophila Ag Ur Not Detected (Not Detected)
[2022-01-22] MEDS: polyethylene glycoL 3350 17 GM POWD.PACK PO (21:22)
[2022-01-22] MEDS: SOTALOL HCL 80 MG TABLET PO (21:22)
[2022-01-22] MEDS: RIVAROXABAN 15 MG TABLET PO (21:22)
[2022-01-22] MEDS: PRAVASTATIN SODIUM 20 MG TABLET PO (21:22)
[2022-01-23] VITALS (20 sets, daily range): BP systolic 131–163; BP diastolic 62–72; PULSE 57–87; RESP 12–20; TEMP 36.1–36.2; O2SAT 95–99
[2022-01-23] MEDS: IPRATROPIUM BR 0.02% INH SOLN 0.5 MG/2.5 ML VIAL INHALATION ×4 (02:21→21:14)
[2022-01-23] MEDS: ALBUTEROL SULFATE NEB 2.5 MG/3 ML INH 5 MG INHALATION ×4 (02:21→21:15)
[2022-01-23 05:41] LABS: Hematocrit 42.7 % (37.0-47.0); Hemoglobin 13.7 g/dL (12.0-15.0); Mean Corpuscular HGB Conc 32.1 g/dl (32-36); Mean Corpuscular Volume 96.6 fl (80-100); Mean Platelet Volume 10.3 fl (7.4-10.4); Platelet Count Result 252 k/mm3 (150-375); Red Blood Count 4.42 M/mm3 (4.2-5.4); White Blood Count 18.8 K/mm3 (4.5-10.0)
[2022-01-23 05:45] LABS: Anion Gap 2 mmol/L (8-16); Blood Urea Nitrogen 23 mg/dL (7-17); Calcium 8.9 mg/dL (8.4-10.2); Carbon Dioxide 36 mmol/L (22-30); Chloride 103 mmol/L (98-107); Estimated CRCL calculation 32 ml/min; Estimated Glomerular Filt Rate > 60; Glucose 165 mg/dL (65-110); Potassium 3.1 mmol/L (3.4-5.0); Sodium 141 mmol/L (137-145)
[2022-01-23] MEDS: SOTALOL HCL 40 MG TABLET PO (08:05)
[2022-01-23] MEDS: levoFLOXacin 750 MG TABLET PO (08:05)
[2022-01-23] MEDS: predniSONE 20 MG TABLET 40 MG PO (08:05)
[2022-01-23] MEDS: guaiFENesin 12 HR 600 MG TABCR PO ×2 (08:05→20:06)
[2022-01-23] MEDS: POTASSIUM CHLORIDE 20 MEQ TABLET 40 MEQ PO (08:05)
--- NOTE | 2022-01-23 08:59 | PM.IMPN ---
Progress Note: A&P Assessment and Plan (1) Right lower lobe pneumonia: Qualifiers: Pneumonia type: due to unspecified organism Qualified Code(s): J18.9 - Pneumonia, unspecified organism Code(s): J18.9 - Pneumonia, unspecified organism Status: Acute Assessment and Plan: Patient presented with increased shortness of breath and cough CXR showed right lower lung opacities Transition to PO levofloxacin on 01/23. COVID-19 negative. Influenza negative. Plan dc in 1-2 days time - 01/23/22: continue oral steroids and oral abx of Levaquin. Attempt to wean oxygen for sats >92%, Home oxygen evaluation is ordered again at this time. Pt. remains on supplemental oxygen. Will likely be ready for discharge tomorrow, 01/24/22. (2) COPD with acute exacerbation: Code(s): J44.1 - Chronic obstructive pulmonary disease with (acute) exacerbation Status: Acute Assessment and Plan: Patient wheezing on presentation, consistent with COPD exacerbation. On IV Solu-Medrol, weaned to 40 mg q.12h, will transition to PO steroids tomorrow. Scheduled DuoNebs q.6h Continue home Tregy [facility] high secondary to steroids - 01/23/22: Continue steroids and abx. WBC's are more elevated today in the setting of steroid use. Continue respiratory meds and monitor Oxygen saturations with administration and with VS. (3) E. coli UTI: Code(s): N39.0 - Urinary tract infection, site not specified; B96.20 - Unspecified Escherichia coli [E. coli] as the cause of diseases classified elsewhere Status: Acute Assessment and Plan: Urine culture from 01/16/2022 with >100k colonies E coli and urine culture from 01/17/2022 with >100k Pseudomonas sensitive to levaquin continue oral for 5 days started yesterday pt had 4 days of IV levaquin rpt UA today - 01/23/22: Continue Levaquin for >100K Colonies of E. coli in her urine. (4) Hyperglycemia: Code(s): R73.9 - Hyperglycemia, unspecified Status: Acute Assessment and Plan: A1c is 5.7 sugars more stable at 145 - 01/23/22: Continued hyperglycemia with fasting glucose of 165. Continue current glucose management plan and follow. Continue hypoglycemic protocol and monitor glucose AC and HS. (5) Polycythemia secondary to hypoxia: Code(s): D75.1 - Secondary polycythemia Status: Inactive Assessment and Plan: Polycythemia has resolved at this time following gentle hydration. Hb is 12 - 01/23/22: H&H today are stable at 13.7/42.7. Will monitor with daily labs while here. (6) Severe protein-calorie malnutrition: Code(s): E43 - Unspecified severe protein-calorie malnutrition Status: Acute Assessment and Plan: Patient with severe protein calorie malnutrition secondary to poor intake add Prilosec Dietary supplements -01/23/22: Pt. is encouraged to eat. May consider Remeron as an adjunctive medication to help with stimulation of appetite. (7) Atrial fibrillation: Qualifiers: Atrial fibrillation type: unspecified Qualified Code(s): I48.91 - Unspecified atrial fibrillation Code(s): I48.91 - Unspecified atrial fibrillation Status: Inactive Assessment and Plan: Rate is controlled Continue Xarelto Continue sotalol sotalol and levaquin have interaction - 01/23/22: Pt. remains well rate controlled. Continue current medications and check VS. (8) Hypokalemia: Code(s): E87.6 - Hypokalemia Status: Acute Assessment and Plan: - 01/23/22: Pt's Potassium is 3.1 today. She is dosed with an oral supplementation. Will recheck AM labs including. Subjective Date/time seen: 01/23/22 08:59 This pt. was examined at the bedside in interval assessment. She was transitioned to oral abx yesterday for treatment of her PNA, and she was transitioned to oral steroids today. Pt. remains on supplemental oxygen and the original home oxygen evaluation has sti
[2022-01-23] MEDS: FLUTICASONE/UMECLIDIN/VILANTER 100-62.5-25 MCG ELLIPTA 1 PUFF INHALATION (09:00)
--- NOTE | 2022-01-23 09:17 | PC.NURSE ---
pt weaned to ra this shift.
--- NOTE | 2022-01-23 13:34 | PC.NURSE ---
pt remained on ra during therapy. 02 sat 95-96% ra during walk with therapy, 02 sat did dropped to 91% once sitting down, recovered back to 95% ra with rest.
[2022-01-23] MEDS: SOTALOL HCL 80 MG TABLET PO (20:06)
[2022-01-23] MEDS: RIVAROXABAN 15 MG TABLET PO (20:06)
[2022-01-23] MEDS: PRAVASTATIN SODIUM 20 MG TABLET PO (20:06)
[2022-01-24] VITALS (21 sets, daily range): BP systolic 128–139; BP diastolic 59–65; PULSE 66–89; RESP 14–18; TEMP 36.2–36.5; O2SAT 93–97
[2022-01-24] MEDS: ALBUTEROL SULFATE NEB 2.5 MG/3 ML INH 5 MG INHALATION ×3 (03:01→14:56)
[2022-01-24] MEDS: IPRATROPIUM BR 0.02% INH SOLN 0.5 MG/2.5 ML VIAL INHALATION ×3 (03:01→14:34)
[2022-01-24 06:18] LABS: Basophils Percent Auto 0.2 % (0.2-1.2); Eosinophils Percent Auto 0.1 % (0-4.4); Hematocrit 43.4 % (37.0-47.0); Hemoglobin 14.4 g/dL (12.0-15.0); Immature Granulocyte Absolute 0.16 K/mm3 (0.00-0.031); Immature Granulocyte Percent A 0.8 % (0-0.5); Lymphocytes Absolute Auto 1.65 K/mm3 (0.9-3.2); Lymphocytes Percent Auto 8.4 % (18.3-44.2); Mean Corpuscular HGB Conc 33.2 g/dl (32-36); Mean Corpuscular Hemoglobin 31.5 pg (26-34); Mean Platelet Volume 10.1 fl (7.4-10.4); Monocytes Absolute Auto 1.9 K/mm3 (0.1-0.6); Monocytes Percent Auto 9.5 % (2.6-8.5); Platelet Count Result 261 k/mm3 (150-375); Red Blood Count 4.57 M/mm3 (4.2-5.4); Red Cell Distribution Width 12.2 % (11.5-14.5); White Blood Count 19.7 K/mm3 (4.5-10.0)
[2022-01-24 06:36] LABS: Alanine Aminotransferase 45 U/L (6-35); Albumin Level 3.1 g/dL (3.5-5.1); Alkaline Phosphatase 88 U/L (38-126); Anion Gap 4 mmol/L (8-16); Aspartate Amino Transferase 33 U/L (14-36); Bilirubin,Total 0.7 mg/dL (0.2-1.3); Blood Urea Nitrogen 20 mg/dL (7-17); Carbon Dioxide 35 mmol/L (22-30); Chloride 99 mmol/L (98-107); Estimated CRCL calculation 37 ml/min; Estimated Glomerular Filt Rate > 60; Glucose 84 mg/dL (65-110); Magnesium 2.2 mg/dL (1.6-2.3); Potassium 3.5 mmol/L (3.4-5.0); Sodium 138 mmol/L (137-145)
[2022-01-24] MEDS: FLUTICASONE/UMECLIDIN/VILANTER 100-62.5-25 MCG ELLIPTA 1 PUFF INHALATION (08:19)
[2022-01-24] MEDS: guaiFENesin 12 HR 600 MG TABCR PO (08:26)
[2022-01-24] MEDS: SOTALOL HCL 40 MG TABLET PO (08:26)
[2022-01-24] MEDS: predniSONE 20 MG TABLET 40 MG PO (08:26)
--- NOTE | 2022-01-24 08:27 | PCPTNOTE ---
Attempted to see patient for PT at this time, however patient declined due to eating breakfast and wanting her medication prior to therapy.
--- NOTE | 2022-01-24 09:06 | PC.NURSE ---
called for home 02 evaulation for pt to discharge home
[2022-01-24] MEDS: ALBUTEROL SULFATE NEB 2.5 MG/0.5 ML INH ×4 (10:30→14:57)
--- NOTE | 2022-01-24 14:07 | HOMEO2EVAL ---
Evaluation was performed at [facility] Home Oxygen Evaluation RC: Home Oxygen (O2) Evaluation Start: 01/23/22 08:58 Freq: ONCE Status: Active Protocol: RPE Activity Type Activity Date Activity User E-Sign Co-Sign Detail Recorded Client Recorded Date Recorded By Document 01/24/22 11:15 JC [email or web address] 01/24/22 14:07 JC Document 01/24/22 11:20 JC [email or web address] 01/24/22 14:07 JC Document 01/24/22 11:30 JC [email or web address] 01/24/22 14:07 JC 01/24/22 01/24/22 01/24/22 11:15 11:20 11:30 Home O2 Evaluation Test Phase Resting Exercise Resting Oxygen Delivery Room Air Room Air Room Air Pulse Oximetry (90-100 %) 95 93 94 Pulse Rate (60-100 beats/min) 72 89 71 Home Oxygen Evaluation Comments NO HOME O2 NEEDED, PT DOES WEAR O2 WITH SLEEP. HAS O2 AT HOME. Treatment Charges O2 Evaluation - Inpatient
--- NOTE | 2022-01-24 14:07 | PCRCNOTE ---
Addendum entered by Stacy Branch, ELECTROPHYSIOLOGIST 01/24/22 15:33: THIS NOTE WAS ENTERED ON THE WRONG PATIENT. NO HOME O2 NEEDED AT REST, ACTIVITY OR NOCTURNAL. SHE DOESNT REQUIRE O2 AT HOME, AND DOESNT HAVE ANY AT HOME. Original Note: PT DOES NOT REQUIRE O2 WITH REST OR ACTIVITY. PT DOES WEAR O2 WITH SLEEP. PT HAS O2 AT HOME, SET UP IS WITH [facility].
[2022-01-24] MEDS: ALBUTEROL SULFATE NEB 2.5 MG/0.5 ML INH 5 MG (14:34)
[2022-01-24] MEDS: IPRATROPIUM BR 0.02% INH SOLN 0.5 MG/2.5 ML VIAL (14:56)
--- NOTE | 2022-01-24 14:57 | PM.DS ---
DS: Admitting Diagnosis Discharge Date 01/24/22 Admitting Diagnosis Back pain, SOB DS: Discharge Diagnosis Discharge Diagnosis (1) Right lower lobe pneumonia: Qualifiers: Pneumonia type: due to unspecified organism Qualified Code(s): J18.9 - Pneumonia, unspecified organism Code(s): J18.9 - Pneumonia, unspecified organism Status: Acute Assessment and Plan: Patient presented with increased shortness of breath and cough. CXR showed right lower lung opacities. Treated with Levaquin. COVID-19 negative. Influenza negative. Urine Legionella and Pneumococcal were negative. Sputum grew Pseudomonas sensitive to Levaquin. Home O2 evaluation showed that she did not need O2 at home. She already has O2 at 2L at night at home which she should continue. (2) COPD with acute exacerbation: Code(s): J44.1 - Chronic obstructive pulmonary disease with (acute) exacerbation Status: Acute Assessment and Plan: Patient was wheezing on presentation, consistent with COPD exacerbation. She was treated with IV Solu-Medrol but able to be weaned to 40 mg q.12h. We scheduled DuoNebs q.6h and continued home Trelegy. WBC high secondary to steroids. As above. (3) UTI (urinary tract infection): Code(s): N39.0 - Urinary tract infection, site not specified Status: Acute Assessment and Plan: Urine culture from 01/16/2022 with >100k colonies E coli and urine culture from 01/17/2022 with >100k Pseudomonas. Both sensitive to Levaquin. Patient had 4 days of IV Levaquin and has been transitioned to oral Levaquin. Continue the same to complete a course. (4) Hyperglycemia: Code(s): R73.9 - Hyperglycemia, unspecified Status: Acute Assessment and Plan: A1c is 5.7. glucose elevated due to stress response and infection. Glucose more stable now. (5) Polycythemia secondary to hypoxia: Code(s): D75.1 - Secondary polycythemia Status: Inactive Assessment and Plan: Polycythemia related to hypoxia, COPD and dehydration. This has resolved at this time following gentle hydration. (6) Severe protein-calorie malnutrition: Code(s): E43 - Unspecified severe protein-calorie malnutrition Status: Acute Assessment and Plan: Patient with severe protein calorie malnutrition secondary to poor intake. BMI 13.6. We added dietary supplements (7) Atrial fibrillation: Qualifiers: Atrial fibrillation type: unspecified Qualified Code(s): I48.91 - Unspecified atrial fibrillation Code(s): I48.91 - Unspecified atrial fibrillation Status: Inactive Assessment and Plan: EKG showing NSR. Hear rate remained controlled. We continued Xarelto and Sotalol. Sotalol and levaquin have interaction but EKG 01/21 showing QTc 369. (8) Hypokalemia: Code(s): E87.6 - Hypokalemia Status: Acute Assessment and Plan: Potassium low at times and was replaced. Magnesium was normal. DS: Summary Hospital Course Reason for hospitalization: 71yo female with a history of COPD, atrial fibrillation and hyperlipidemia who presented to the ER from home with back pain and shortness of breath. Please see H&P for details. Hospital Course: Please see above for details of hospital course. Status at Discharge Cognitive/behavioral status at discharge: Stable Time Spent with Patient Time attestation: Total time spent providing and/or coordinating discharge services: 36 minutes Time spent: Greater than 30 minutes Exam Narrative: AF 97.7 128/65 72 16 95% ra Gen - thin female in NARD Chest - distant, clear BS. nml RR CV - RRR S1/S2 Abd - Soft, NT/ND, Positive BS Ext - No pedal edema Psych - Nml mood and affect Skin - Warm and dry DS: Data Data Completed and Pending Labs on day of discharge: Labs from last 24 hours 01/24/22 01/24/22 05:47 05:47 WBC 19.7 H RBC 4.57 Hgb 14.4 Hct 43.4 M
== END 2022-01-24 16:30 | disposition home health service (06) | DRG 193 ==
LOC: ANHED 22:20 → ANH2MED 22:23
PROVIDERS: Emergency Medicine; Family Medicine; Physician Assistant; Admitting Provider Internal Medicine; Emergency Provider General Practice; PCP Nurse Practitioner Family; Visit Provider Nurse Practitioner Adult Health
DX: J18.9 Pneumonia, unspecified organism (principal); E43 Unspecified severe protein-calorie malnutrition; J44.1 Chronic obstructive pulmonary disease with (acute) exacerbation; N39.0 Urinary tract infection, site not specified; J44.0 Chronic obstructive pulmonary disease with (acute) lower respiratory infection; R64 Cachexia; Z68.1 Body mass index [BMI] 19.9 or less, adult; B96.5 Pseudomonas (aeruginosa) (mallei) (pseudomallei) as the cause of diseases classified elsewhere; Z20.822 Contact with and (suspected) exposure to COVID-19; E86.0 Dehydration; H40.9 Unspecified glaucoma; E87.6 Hypokalemia; I48.91 Unspecified atrial fibrillation; R91.1 Solitary pulmonary nodule; E78.5 Hyperlipidemia, unspecified; R73.9 Hyperglycemia, unspecified; D75.1 Secondary polycythemia; F17.210 Nicotine dependence, cigarettes, uncomplicated; Z87.442 Personal history of urinary calculi; Z79.01 Long term (current) use of anticoagulants
CPT/HCPCS: 36415; 36600; 71045; 71046; 74018; 74176; 80048; 80053; 81001; 82375; 82805; 83036; 83050; 83605; 83690; 83735; 85025; 85027; 85610; 85730; 87040; 87070; 87077; 87086; 87088; 87186; 87205; 87449; 87502; 87899; 93005; 94618; 94640; 94667; 96361; 96365; 96367; 96375; 96376; 97110; 97116; 97161; 97165; 97530; 97535; 99283; 99285; A9270; C9803; G0378; J0131; J0456; J0696; J1956; J2405; J2920; J2930; J7030; J7512; U0003; U0005

== ENCOUNTER 2022-03-10 15:04 | Outpatient (CLI) | payer OTHER, SELFPAY ==
--- NOTE | ~2022-03-10 | XR_ITS ---
XR chest 2V 03/10/2022 15:23 Indication: Bacterial infection. Pseudomonas. Procedure: 2 view chest Comparison: Comparison to multiple prior studies sequentially, with oldest reviewed study dated 01/16. Findings: Heart size normal. There is atherosclerosis. The lungs are hyperinflated which is consisten t with, but not diagnostic of chronic obstructive pulmonary disease. Prominent bilateral nipple shado ws. Stable pulmonary nodules in the left mid thorax. No edema or pneumothorax. No acute osseous abnor mality. Impression: 1: Stable pulmonary nodules left mid thorax. Follow-up low dose CT chest recommended. Reviewed, dictated and finalized at location A. Impression: 1: Stable pulmonary nodules left mid thorax. Follow-up low dose CT chest recomm ended.
== END 2022-03-10 15:05 | disposition home or self-care (01) ==
PROVIDERS: PCP Nurse Practitioner Family; Visit Provider Nurse Practitioner
DX: A49.8 Other bacterial infections of unspecified site (principal); R91.8 Other nonspecific abnormal finding of lung field
CPT/HCPCS: 71046

== ENCOUNTER 2022-05-01 12:13 | Emergency (ER) | payer OTHER, SELFPAY ==
[2022-05-01] VITALS (22 sets, daily range): BP systolic 96–140; BP diastolic 62–104; PULSE 106–139; RESP 16–33; TEMP 36.8; O2SAT 92–99
--- NOTE | ~2022-05-01 | XR_ITS ---
EXAMINATION: XR chest 2V DATE: 05/01/2022 13:12 INDICATION: Atrial fibrillation, shortness of breath TECHNIQUE: Frontal and lateral views of the chest are obtained COMPARISON: 03/10/2022 FINDINGS: The lungs are hyperinflated but free of acute opacities. Multiple pulmonary nodules are aga in seen without definite change in size. No pleural effusion or pneumothorax. The cardiomediastinal s ilhouette is normal. There is mild thoracic spondylosis. IMPRESSION: 1. Hyperinflation without acute cardiopulmonary abnormality. 2. Multiple pulmonary nodules, grossly stable. Follow-up with nonemergent low-dose CT of the chest is recommended. Reviewed, dictated and finalized at location A. IMPRESSION: 1. Hyperinflation without acute cardiopulmonary abnormality. 2. Multiple pulmonary nodules, grossly stable. Follow-up with nonemergent low-d ose CT of the chest is recommended.
--- NOTE | ~2022-05-01 | CT_ITS ---
EXAMINATION: CT abdomen pelvis wo con DATE: 05/01/2022 13:59 INDICATION: Hematuria TECHNIQUE: Computed tomography (CT) of the abdomen and pelvis was performed without intravenous contr ast. The dose-length product (DLP) was 143.28 mGy-cm. Automated exposure control and iterative recons truction technique were employed. COMPARISON: 01/17/2022 FINDINGS: There is severe emphysema visualized lung bases. The heart size is normal. Punctate calcifi cations in otherwise normal appearing liver and spleen likely represent healed granulomatous disease. The pancreas, gallbladder, and adrenal glands are normal. There is nephrocalcinosis of the kidneys. Nonobstructing stones of the right kidney measure up to 7 mm. No definite stones are identified in th e ureters or bladder. No pathologically enlarged abdominal or pelvic lymph nodes are identified. Ther e is no free intraperitoneal gas or evidence of bowel obstruction. There is severe lumbar spondylosis . Colonic diverticulosis is present without evidence of diverticulitis. IMPRESSION: 1. Nephrocalcinosis and bilateral nephrolithiasis. Reviewed, dictated and finalized at location A.
--- NOTE | 2022-05-01 12:14 | ECG_ITS ---
Measurements Intervals [place] Rate: 126 P: MD: 0 QRS: 57 QRSD: 90 T: 80 QT: 332 QTc: 482 Interpretive Statements ATRIAL FIBRILLATION WITH RAPID VENTRICULAR RESPONSE INDETERMINATE AXIS LOW QRS VOLTAGE IN EXTREMITY LEADS [QRS DEFLECTION < 0.5 mV IN LIMB LEADS] PATTERN CONSISTENT WITH PULMONARY DISEASE ST DEPRESSION, CONSIDER SUBENDOCARDIAL INJURY [0.1+ mV ST DEPRESSION] COMPARED TO ECG 01/21/2022 12:52:15 ATRIAL FIBRILLATION REPLACES SINUS RHYTHM AND ST SEGMENT DEPRESSION IS NOW PRESENT Electronically Signed On 05-02-2022 16:47:15 CDT by Derek Hanks M.D.
[2022-05-01 13:06] LABS: Basophils Absolute Auto 0.1 K/mm3 (0.0-0.1); Basophils Percent Auto 0.5 % (0.2-1.2); Eosinophils Absolute Auto 0.2 K/mm3 (0-0.3); Eosinophils Percent Auto 1.5 % (0-4.4); Hemoglobin 15.6 g/dL (12.0-15.0); Immature Granulocyte Absolute 0.02 K/mm3 (0.00-0.031); Immature Granulocyte Percent A 0.2 % (0-0.5); Lymphocytes Absolute Auto 1.84 K/mm3 (0.9-3.2); Lymphocytes Percent Auto 18.1 % (18.3-44.2); Mean Corpuscular HGB Conc 32.5 g/dl (32-36); Mean Corpuscular Hemoglobin 30.8 pg (26-34); Mean Corpuscular Volume 94.9 fl (80-100); Monocytes Absolute Auto 0.9 K/mm3 (0.1-0.6); Monocytes Percent Auto 8.8 % (2.6-8.5); Neutrophils Absolute Auto 7.2 K/mm3 (1.3-6.7); Neutrophils Percent Auto 70.9 % (45.5-73.1); Platelet Count Result 225 k/mm3 (150-375); Red Blood Count 5.06 M/mm3 (4.2-5.4); Red Cell Distribution Width 12.8 % (11.5-14.5); White Blood Count 10.2 K/mm3 (4.5-10.0)
--- NOTE | 2022-05-01 13:06 | ED.ARRPALP ---
HPI - Arrhythmia/Palpitations General Chief Complaint: Arrhythmia/Palpitations Stated Complaint: a-fib Time Seen by Provider: 05/01/22 13:02 Source: patient and family Mode of arrival: ambulatory Limitations: no limitations History of Present Illness HPI narrative: The patient is a 72-year-old female with a history of COPD, hypertension, atrial fibrillation on chronic anticoagulation, hyperlipidemia, hypothyroidism, nephrolithiasis presenting to the emergency department for evaluation of palpitations, abdominal pain. Patient states that she has felt unwell over the past 2 weeks, worsening over the past 24 hours. Patient states that this morning she was nauseated and felt sick to her stomach. Patient states that she has had palpitations through the course of the morning despite being compliant with her diltiazem and sotalol. Patient's glass technologist is [facility]. Patient reports chronic shortness of breath, she denies any pleuritic chest pain, active cough or hemoptysis. She denies fever, chills. Patient denies focal abdominal pain, reports chronic lower back pain and history of nephrolithiasis for which she was supposed to undergo a lithotripsy with Dr. Eli, but secondary to her other medical problems has not moved forward with that at this point. Pt reports that yesterday she overworked herself and is not sure she drank enough fluids. Related Data Home Medications Medication Instructions Recorded Confirmed albuterol sulfate 2.5 mg/3 mL 2.5 mg continuous nebulization Q4H 01/16/22 01/17/22 (0.083 %) solution for nebulization PRN Shortness Of Breath diltiazem HCl 120 mg 120 mg PO DAILY 01/16/22 01/17/22 capsule,extended release 24 hr ergocalciferol (vitamin D2) 1,250 1,250 mcg PO [id number] 01/16/22 01/17/22 mcg (50,000 unit) capsule fluticasone fur. 100 mcg-umeclid 1 inh inhalation DAILY 01/16/22 01/17/22 62.5 mcg-vilant 25 mcg inhalat.powder (Trelegy Ellipta) levalbuterol tartrate 45 2 puff inhalation Q4H PRN 01/16/22 01/17/22 mcg/actuation aerosol inhaler Shortness Of Breath pravastatin 20 mg tablet 20 mg PO DAILY 01/16/22 01/17/22 rivaroxaban 15 mg tablet (Xarelto) 15 mg PO DAILY 01/16/22 01/17/22 sotalol 80 mg tablet (Sotalol AF) 80 mg PO HS 01/16/22 01/17/22 sotalol 80 mg tablet (Sotalol AF) 40 mg PO QAM 01/17/22 01/17/22 Allergies Allergy/AdvReac Type Severity Reaction Status Date / Time morphine Allergy Unknown ITCHING Verified 12/10/15 06:55 Review of Systems Review of Systems: CONSTITUTIONAL: Denies fever, chills, or sweats. ENT: Denies rhinorrhea, congestion, sore throat, or otalgia. CARDIOVASCULAR: Denies chest pain, reports palpitations or edema RESPIRATORY: Denies cough or dyspnea. GASTROINTESTINAL: Denies focal abdominal pain, reports nausea and vomiting GENITOURINARY: Patient also reports ongoing dysuria and hematuria over the past week as well as frequency of urination SKIN: Denies rash or itching. MUSCULOSKELETAL: She reports chronic back pain without focal joint pain NEUROLOGIC: Denies headache, numbness, or weakness. [facility] Past Medical History Medical History Atrial fibrillation COPD (chronic obstructive pulmonary disease) PFT 11/02/2021: Severe obstructive airway disease with air trapping, lung hyperinflation and significant response to bronchodilators. Severely reduced diffusion capacity Glaucoma Hypercholesterolemia Hypertension Kidney stones Polycythemia secondary to hypoxia Pulmonary nodule 7 mm left lower lobe nodule increased in size compared to prior exam 2016 with recommended follow-up CT scan in March-April Surgical History Surgical History H/O cystoscopy History of 2 sections Family History Family History Father Acute myocardial infarction Hypertension Mother Chr
[2022-05-01 13:20] LABS: INR 1.7; Prothrombin Time 19.7 Seconds (11.1-14.7)
[2022-05-01 13:21] LABS: Partial Thromboplastin Time 38.6 SECONDS (22.3-36.8)
[2022-05-01 13:30] LABS: NT Pro B Type Natriuretic Pept 360 pg/mL (5-100); Troponin I 0.018 ng/mL (0.000-0.034)
[2022-05-01 13:32] LABS: Alanine Aminotransferase 11 U/L (6-35); Albumin Level 4.1 g/dL (3.5-5.1); Alkaline Phosphatase 64 U/L (38-126); Anion Gap 10 mmol/L (8-16); Aspartate Amino Transferase 33 U/L (14-36); Bilirubin,Total 1.3 mg/dL (0.2-1.3); Blood Urea Nitrogen 17 mg/dL (7-17); Calcium 9.7 mg/dL (8.4-10.2); Carbon Dioxide 27 mmol/L (22-30); Chloride 103 mmol/L (98-107); Estimated Glomerular Filt Rate > 60; Glucose 259 mg/dL (65-110); Lipase 87 U/L (23-300); Potassium 3.5 mmol/L (3.4-5.0); Sodium 140 mmol/L (137-145)
[2022-05-01] MEDS: SODIUM CHLORIDE 0.9% IV 500 ML 999 ML IV CONT ×2 (13:37→15:18)
[2022-05-01 13:40] LABS: Add Urine Microscopic? YES; Appearance Urine Cloudy (Clear); Bilirubin Urine 1+ (Negative); Blood Urine 3+ (Negative); Color Urine Red (Yellow); Glucose Urine UA Negative (Negative); Ketones Urine Negative (Negative); Leukocyte Esterase Ur 3+ LEU/UL (Negative); Nitrate Urine Positive (Negative); Protein Urine 2+ mg/dL (Negative); pH Urine 6.5 (5.0-9.0)
[2022-05-01 13:47] LABS: RBC Urine >75 /hpf (0-2); WBC Urine >75 /hpf
--- NOTE | 2022-05-01 13:51 | PC.NURSE ---
Per EDP Ga, no aspirin needed.
[2022-05-01 13:53] LABS: Magnesium 1.9 mg/dL (1.6-2.3)
--- NOTE | 2022-05-01 13:53 | PC.NURSE ---
Patient to CT
[2022-05-01] MEDS: MAGNESIUM SULF 1 GM/D5W 100 ML 1 GM/100 ML BAG IVPB (14:19)
[2022-05-01 14:53] LABS: Lactic Acid Reflex 0.9 mmol/L (0.7-2.0)
[2022-05-01] MEDS: dilTIAZem HCl INJ 25 MG/5 ML VIAL 10 MG IV PUSH (15:18)
== END 2022-05-01 17:27 | disposition home or self-care (01) ==
PROVIDERS: Emergency Medicine; Emergency Provider Emergency Medicine; PCP Nurse Practitioner Family
DX: R00.2 Palpitations (principal); I48.91 Unspecified atrial fibrillation; N39.0 Urinary tract infection, site not specified; J44.9 Chronic obstructive pulmonary disease, unspecified; I10 Essential (primary) hypertension; E78.5 Hyperlipidemia, unspecified; E03.9 Hypothyroidism, unspecified; H40.9 Unspecified glaucoma; D75.1 Secondary polycythemia; Z87.442 Personal history of urinary calculi; Z87.891 Personal history of nicotine dependence; Z79.01 Long term (current) use of anticoagulants; R91.8 Other nonspecific abnormal finding of lung field; E83.59 Other disorders of calcium metabolism; N29 Other disorders of kidney and ureter in diseases classified elsewhere; R94.31 Abnormal electrocardiogram [ECG] [EKG]; R06.02 Shortness of breath
CPT/HCPCS: 36415; 71046; 74176; 80053; 81001; 83605; 83690; 83735; 83880; 84443; 84484; 85025; 85610; 85730; 87040; 87077; 87086; 87186; 93005; 96361; 96365; 96367; 96375; 99284; J0696; J3475; J7040

== ENCOUNTER 2022-06-08 15:53 | Inpatient (IN) | payer OTHER, SELFPAY ==
[2022-06-08] VITALS (9 sets, daily range): BP systolic 130–150; BP diastolic 63–96; PULSE 74–89; RESP 13–26; TEMP 36.8–37.1; O2SAT 93–96; BMI 14.8
--- NOTE | ~2022-06-08 | XR_ITS ---
XR chest 1V portable 06/08/2022 16:17 Indication: Cough. Atrial fibrillation. COPD. Procedure: AP portable chest Comparison: Comparison to multiple prior studies sequentially, with oldest reviewed study dated 01/16. Findings: The lungs are hyperinflated which is consistent with, but not diagnostic of chronic obstruc tive pulmonary disease. There are calcified granulomas in the left midlung. Prominent left nipple sha paige. No acute focal pneumonia, edema or pneumothorax. Impression: 1: No acute cardiopulmonary disease. Reviewed, dictated and finalized at location B. Impression: 1: No acute cardiopulmonary disease.
--- NOTE | 2022-06-08 15:59 | ECG_ITS ---
Measurements Intervals [place] Rate: 73 P: 85 MS: 111 QRS: 55 QRSD: 93 T: 85 QT: 400 QTc: 443 Interpretive Statements SINUS RHYTHM WITH SHORT MS INTERVAL BASELINE ARTIFACT PRESENT NONSPECIFIC ST-T WAVE ABNORMALITY COMPARED TO ECG 05/01/2022 12:20:47 SINUS RHYTHM NOW PRESENT Electronically Signed On 06-09-2022 17:05:06 CDT by Bartolo Baker M.D.
--- NOTE | 2022-06-08 16:03 | ED.CHESTPAIN ---
HPI - Chest Pain General Chief Complaint: Shortness of Breath/Dyspnea Stated Complaint: SOB Source: RN notes reviewed History of Present Illness HPI narrative: Patient presents to emergency department from home via EMS for shortness of breath. Patient states he been progressively more shortness of breath over the past several weeks states has been associate with a cough this been nonproductive as well as a mild feeling of tightness across her chest. She denies any fevers or chills she denies abdominal pain nausea vomiting or other symptoms states she has a history of COPD as well as atrial fibrillation but no history of CHF states she has been using her inhaler with minimal relief patient received Decadron and breathing treatment by EMS in route Related Data Home Medications Medication Instructions Recorded Confirmed albuterol sulfate 2.5 mg/3 mL 2.5 mg continuous nebulization Q4H 01/16/22 01/17/22 (0.083 %) solution for nebulization PRN Shortness Of Breath diltiazem HCl 120 mg 120 mg PO DAILY 01/16/22 01/17/22 capsule,extended release 24 hr ergocalciferol (vitamin D2) 1,250 1,250 mcg PO [id number] 01/16/22 01/17/22 mcg (50,000 unit) capsule fluticasone fur. 100 mcg-umeclid 1 inh inhalation DAILY 01/16/22 01/17/22 62.5 mcg-vilant 25 mcg inhalat.powder (Trelegy Ellipta) levalbuterol tartrate 45 2 puff inhalation Q4H PRN 01/16/22 01/17/22 mcg/actuation aerosol inhaler Shortness Of Breath pravastatin 20 mg tablet 20 mg PO DAILY 01/16/22 01/17/22 rivaroxaban 15 mg tablet (Xarelto) 15 mg PO DAILY 01/16/22 01/17/22 sotalol 80 mg tablet (Sotalol AF) 80 mg PO HS 01/16/22 01/17/22 sotalol 80 mg tablet (Sotalol AF) 40 mg PO QAM 01/17/22 01/17/22 Allergies Allergy/AdvReac Type Severity Reaction Status Date / Time morphine Allergy Unknown ITCHING Verified 12/10/15 06:55 Review of Systems Review of Systems: Gen.: Denies fevers or chills Eyes: Denies eye pain or visual change ENT: Denies congestion Respiratory: See HPI CV: Reports chest tightness GI: Denies abdominal pain nausea, emesis or diarrhea Musculoskeletal: Denies back pain or muscle pain Neuro: Denies numbness, tingling, weakness or focal weakness Skin: Denies rash Except as documented, all other systems reviewed and negative [facility] Past Medical History Medical History Atrial fibrillation COPD (chronic obstructive pulmonary disease) PFT 11/02/2021: Severe obstructive airway disease with air trapping, lung hyperinflation and significant response to bronchodilators. Severely reduced diffusion capacity Glaucoma Hypercholesterolemia Hypertension Kidney stones Polycythemia secondary to hypoxia Pulmonary nodule 7 mm left lower lobe nodule increased in size compared to prior exam 2016 with recommended follow-up CT scan in March-April Surgical History Surgical History H/O cystoscopy History of 2 sections Family History Family History Father Acute myocardial infarction Hypertension Mother Chronic obstructive pulmonary disease Sibling Chronic obstructive pulmonary disease Hypertension Pulmonary hypertension Social History Social History Social History: She reports that her daughter and 2 grand children recently moved in with her. 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 She denies any significant alcohol use or illicit substance use. Code status: Full code Surrogate decision maker: Diana (daughter) Smoking packs per day: 1 Smoking cigarettes per day: 20.0 Years smoked: 52 Smoking pack-years: 52.00 Smoking status: Former smoker Alcohol intake: never Substance use: never Spiritual care concerns: No Exam Narrative: APPEARANCE: No acute distress, nontoxic, resting in bed
[2022-06-08 17:21] LABS: Basophils Percent Auto 0.3 % (0.2-1.2); Eosinophils Absolute Auto 0.1 K/mm3 (0-0.3); Eosinophils Percent Auto 0.7 % (0-4.4); Hematocrit 51.8 % (37.0-47.0); Hemoglobin 16.8 g/dL (12.0-15.0); Immature Granulocyte Absolute 0.04 K/mm3 (0.00-0.031); Immature Granulocyte Percent A 0.3 % (0-0.5); Lymphocytes Absolute Auto 1.41 K/mm3 (0.9-3.2); Lymphocytes Percent Auto 10.8 % (18.3-44.2); Mean Corpuscular HGB Conc 32.4 g/dl (32-36); Mean Corpuscular Hemoglobin 31.2 pg (26-34); Mean Corpuscular Volume 96.3 fl (80-100); Mean Platelet Volume 10.3 fl (7.4-10.4); Monocytes Absolute Auto 0.6 K/mm3 (0.1-0.6); Monocytes Percent Auto 4.6 % (2.6-8.5); Neutrophils Absolute Auto 10.9 K/mm3 (1.3-6.7); Neutrophils Percent Auto 83.3 % (45.5-73.1); Platelet Count Result 200 k/mm3 (150-375); Red Blood Count 5.38 M/mm3 (4.2-5.4); White Blood Count 13.1 K/mm3 (4.5-10.0)
[2022-06-08 17:31] LABS: Lactic Acid Reflex 1.1 mmol/L (0.7-2.0)
[2022-06-08 17:33] LABS: Alanine Aminotransferase 13 U/L (6-35); Albumin Level 4.4 g/dL (3.5-5.1); Alkaline Phosphatase 86 U/L (38-126); Anion Gap 13 mmol/L (8-16); Aspartate Amino Transferase 26 U/L (14-36); Bilirubin,Total 0.8 mg/dL (0.2-1.3); Blood Urea Nitrogen 13 mg/dL (7-17); Calcium 9.7 mg/dL (8.4-10.2); Carbon Dioxide 31 mmol/L (22-30); Chloride 102 mmol/L (98-107); Estimated CRCL calculation 30 ml/min; Estimated Glomerular Filt Rate > 60; Glucose 94 mg/dL (65-110); Potassium 3.4 mmol/L (3.4-5.0); Sodium 146 mmol/L (137-145)
[2022-06-08 17:34] LABS: INR 1.5; Prothrombin Time 17.7 Seconds (11.1-14.7)
[2022-06-08 17:44] LABS: NT Pro B Type Natriuretic Pept 297 pg/mL (5-100); Troponin I < 0.012 ng/mL (0.000-0.034)
[2022-06-08 17:57] LABS: SARS-CoV-2 RNA PCR Negative
[2022-06-08] MEDS: methylPREDNISolone SOD SUCC 125 MG VIAL 60 MG IV PUSH (18:42)
[2022-06-08] MEDS: IPRATROPIUM BR 0.02% INH SOLN 0.5 MG/2.5 ML VIAL INHALATION (19:29)
[2022-06-08] MEDS: ALBUTEROL SULFATE NEB 2.5 MG/3 ML INH 5 MG INHALATION (19:29)
--- NOTE | 2022-06-08 20:47 | ADMGEN ---
This patient, Sofi Zeng, was admitted to 2 Medical Room 251-01. Patient/family oriented to hospital policies and general routines including ID bracelet, bed and alarms, visiting hours, pain management, procedures, bathroom and other care routines, personal items, smoking policy, room service/diet, and visiting hours. Information on how to activate the Rapid Response Team has been discussed. Patient/Family are encouraged to report perceived risks to care and to ask questions if they do not understand what they are told or what they should do.
[2022-06-08 20:59] LABS: Troponin I < 0.012 ng/mL (0.000-0.034)
--- NOTE | 2022-06-08 23:09 | PM.IMHP ---
H&P: HPI History of Present Illness Date/Time: 06/08/22 23:09 Chief Complaint: Shortness of breath Narrative: this is a 72-year-old female patient who has a history of COPD. She also has a history of granulomatosis. The patient has progressively gotten more short of breath over the last several weeks. This is been associated with a nonproductive cough. She denies any fever chills. No nausea vomiting or diarrhea. She has the his route of COPD and atrial fibrillation but denies any CHF. The patient gets short of breath with only a few steps. She had little relief from the Decadron that she was given via EN route per EMS to the hospital. The patient was given Solu-Medrol in the emergency room as well as a Duo Nebs. Chest x-ray was read as no acute cardiopulmonary disease. The patient is being admitted to observation status on the date of service of Review of Systems Review of Systems: see HPI All systems reviewed & are unremarkable except as noted in HPI and below Constitutional: Constitutional: Reports as per HPI and Reports no additional constitutional complaints Eyes: Eyes: Reports as per HPI and Reports no additional eye complaints ENT: Reports system reviewed and no additional complaints, except as documented and Reports Normal hearing present Cardiovascular: Cardiovascular: Reports no additional cardiovascular complaints Respiratory: Respiratory: Reports no additional respiratory complaints and Reports no additional respiratory complaints Gastrointestinal: Gastrointestinal: Reports as per HPI and Reports no additional gastrointestinal complaints Musculoskeletal: Musculoskeletal: Reports no additional musculoskeletal complaints Integumentary/Breasts: Skin/Breast: Reports system reviewed and no additional complaints, except as docu and Reports as per HPI Neurologic: Reports system reviewed and no additional complaints, except as documented, Reports as per HPI and Reports Normal hearing present Psychiatric: Psychiatric: Reports no additional psychiatric complaints and Reports as per HPI Endocrine: Endocrine: Reports no additional endocrine complaints Hematologic/Lymphatic: Hematologic/Lymphatic: Reports no additional hematologic/lymphatic complaints Allergic/Immunologic: Allergic/Immunologic: Reports no additional allergic/immunologic complaints [facility] Past Medical History Medical History (Updated 06/09/22 @ 01:01 by Mirlande Roberts NP) Atrial fibrillation COPD (chronic obstructive pulmonary disease) PFT 11/02/2021: Severe obstructive airway disease with air trapping, lung hyperinflation and significant response to bronchodilators. Severely reduced diffusion capacity Glaucoma Hypercholesterolemia Hypertension Kidney stones Polycythemia secondary to hypoxia Pulmonary nodule 7 mm left lower lobe nodule increased in size compared to prior exam 2017 with recommended follow-up CT scan in March-April Patient stated she had a PET scan which was negative. She stated she was told that it was granulomatosis Surgical History Surgical History (Updated 06/09/22 @ 00:55 by Mirlande Roberts NP) H/O cystoscopy History of 2 sections History of extraction of renal calculus Family History Family History Father Acute myocardial infarction Hypertension Mother Chronic obstructive pulmonary disease Sibling Chronic obstructive pulmonary disease Hypertension Pulmonary hypertension Social History Social History Social History: She reports that her daughter and 2 grand children recently moved in with her. 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 She denies any significant alcohol use or illicit substance use. Code status: Full code Surrogate decision maker: Diana (daughter) Smoking packs per day: 1 Smoking cigarettes per day: 20.0 Years smoke
[2022-06-09] VITALS (17 sets, daily range): BP systolic 131–142; BP diastolic 64–67; PULSE 69–92; RESP 16–18; TEMP 36.4–36.8; O2SAT 94–96; BMI 14.8
[2022-06-09 00:28] LABS: Troponin I < 0.012 ng/mL (0.000-0.034)
[2022-06-09] MEDS: methylPREDNISolone SOD SUCC 125 MG VIAL 60 MG IV PUSH ×4 (00:46→17:53)
[2022-06-09] MEDS: ALBUTEROL SULFATE NEB 2.5 MG/3 ML INH 5 MG INHALATION ×4 (01:01→20:44)
[2022-06-09] MEDS: IPRATROPIUM BR 0.02% INH SOLN 0.5 MG/2.5 ML VIAL INHALATION ×4 (01:01→20:44)
[2022-06-09 05:11] LABS: Basophils Percent Auto 0.1 % (0.2-1.2); Hematocrit 45.6 % (37.0-47.0); Hemoglobin 14.7 g/dL (12.0-15.0); Immature Granulocyte Absolute 0.06 K/mm3 (0.00-0.031); Immature Granulocyte Percent A 0.5 % (0-0.5); Lymphocytes Absolute Auto 1.11 K/mm3 (0.9-3.2); Lymphocytes Percent Auto 9.9 % (18.3-44.2); Mean Corpuscular HGB Conc 32.2 g/dl (32-36); Mean Corpuscular Hemoglobin 30.9 pg (26-34); Mean Platelet Volume 10.7 fl (7.4-10.4); Monocytes Absolute Auto 0.1 K/mm3 (0.1-0.6); Monocytes Percent Auto 1.2 % (2.6-8.5); Neutrophils Absolute Auto 9.9 K/mm3 (1.3-6.7); Neutrophils Percent Auto 88.3 % (45.5-73.1); Platelet Count Result 195 k/mm3 (150-375); Red Blood Count 4.75 M/mm3 (4.2-5.4); Red Cell Distribution Width 12.8 % (11.5-14.5); White Blood Count 11.2 K/mm3 (4.5-10.0)
[2022-06-09 05:30] LABS: Alanine Aminotransferase 13 U/L (6-35); Albumin Level 3.8 g/dL (3.5-5.1); Alkaline Phosphatase 64 U/L (38-126); Anion Gap 12 mmol/L (8-16); Aspartate Amino Transferase 22 U/L (14-36); Bilirubin,Total 0.7 mg/dL (0.2-1.3); Blood Urea Nitrogen 16 mg/dL (7-17); Calcium 9.8 mg/dL (8.4-10.2); Carbon Dioxide 28 mmol/L (22-30); Chloride 103 mmol/L (98-107); Estimated CRCL calculation 34 ml/min; Estimated Glomerular Filt Rate > 60; Glucose 231 mg/dL (65-110); Potassium 3.3 mmol/L (3.4-5.0); Sodium 143 mmol/L (137-145)
[2022-06-09] MEDS: MAGNESIUM OXIDE 400 MG TABLET PO (08:17)
[2022-06-09] MEDS: PRAVASTATIN SODIUM 20 MG TABLET PO (08:17)
[2022-06-09] MEDS: FLUTICASONE/UMECLIDIN/VILANTER 100-62.5-25 MCG ELLIPTA 1 PUFF INHALATION (08:28)
[2022-06-09] MEDS: SOTALOL HCL 40 MG TABLET PO (09:03)
[2022-06-09] MEDS: POTASSIUM CHLORIDE 20 MEQ TABLET 40 MEQ PO (11:55)
[2022-06-09] MEDS: LEVALBUTEROL HFA (*SP) 15 GM INHALER 2 PUFF INHALATION (14:47)
--- NOTE | 2022-06-09 15:09 | PM.IMPN ---
Progress Note: A&P Assessment and Plan (1) COPD with acute exacerbation: Code(s): J44.1 - Chronic obstructive pulmonary disease with (acute) exacerbation Status: Acute (2) Severe protein-calorie malnutrition: Code(s): E43 - Unspecified severe protein-calorie malnutrition Status: Acute (3) Hypertension: Code(s): I10 - Essential (primary) hypertension Status: Acute (4) Hypercholesterolemia: Code(s): E78.00 - Pure hypercholesterolemia, unspecified Status: Acute (5) Atrial fibrillation: Qualifiers: Atrial fibrillation type: unspecified Qualified Code(s): I48.91 - Unspecified atrial fibrillation Code(s): I48.91 - Unspecified atrial fibrillation Status: Acute (6) Hypokalemia: Code(s): E87.6 - Hypokalemia Status: Acute Plan 06/08/22 ?-continue with Solu-Medrol -continue with DuoNebs. -I did consult dietitian for supplements. -the patient is already on sotalol and Cardizem for AFib. -continue with pravastatin -continue with sotalol -continue with Xarelto -continue with Cardizem 06/09/22 pt improving slowly poor air movement rescue inhaler duonebs solumedrol cont current replete K Subjective Date/time seen: 06/09/22 15:09 pt w sob non hypoxic but unable to tolerate ambulation repots she is feel much better than when she arrived Review of Systems Review of Systems: All systems reviewed & are unremarkable except as noted in HPI and below Exam Narrative: GEN: NAD, AAOx3, cooperative, chronically ill appearing pink puffer HEENT: NCAT, MMM, EOMI Neck: no JVD Heart: S1S2 RRR Lungs: poor air movement w over inflated lungs Abd: soft, NT, ND, bowel sounds normoactive Ext: moves all, no cyanosis, no clubbing, no edema Neuro: normal cognition, moves all extremities equally,normal gait Psych: mood and affect congruent Objective Data Vital Signs Vital Signs: Vital Signs - 24 hr 06/08/22 16:43 06/08/22 16:46 06/08/22 16:46 Temperature 98.8 F Pulse Rate 75 74 Respiratory Rate 26 H Blood Pressure 150/96 H Pulse Oximetry 95 Oxygen Delivery Room Air Room Air 06/08/22 17:40 06/08/22 19:32 06/08/22 19:33 Temperature Pulse Rate 85 88 Respiratory Rate 20 18 Blood Pressure 137/73 Pulse Oximetry 95 96 Oxygen Delivery Room Air 06/08/22 19:41 06/08/22 20:03 06/08/22 20:50 Temperature 98.3 F Pulse Rate 82 89 81 Respiratory Rate 13 20 16 Blood Pressure 142/73 H 130/63 Pulse Oximetry 93 93 Oxygen Delivery 06/08/22 22:23 06/09/22 01:05 06/08/22 20:33 Temperature Pulse Rate 86 87 Respiratory Rate 16 Blood Pressure Pulse Oximetry Oxygen Delivery Room Air 06/09/22 00:00 06/09/22 04:00 06/09/22 05:47 Temperature 97.6 F Pulse Rate 92 78 76 Respiratory Rate 16 Blood Pressure 131/67 Pulse Oximetry 94 Oxygen Delivery 06/09/22 08:27 06/09/22 08:31 06/09/22 08:00 Temperature Pulse Rate 74 76 78 Respiratory Rate 16 Blood Pressure Pulse Oximetry 96 Oxygen Delivery Room Air 06/09/22 13:40 06/09/22 13:49 06/09/22 14:19 Temperature 98.3 F Pulse Rate 73 76 73 Respiratory Rate 18 18 16 Blood Pressure 137/66 Pulse Oximetry 95 Oxygen Delivery Intake/Output Intake/Output: Intake & Output 06/06/22 06/07/22 06/08/22 06/09/22 23:59 23:59 23:59 23:59 Intake Total 220 Balance 220 Meds/Results Medications: Active Medications Generic Name Dose Route Start Last Admin Trade Name Nasirq PRN Reason Stop Dose Admin Albuterol 5 mg 06/08/22 20:00 06/09/22 13:40 Albuterol Sulfate Neb 2.5 Mg/3 Ml Inh INHALATION 5 mg Q6HRT ANIYA Administration Diltiazem HCl 120 mg 06/09/22 09:00 06/09/22 08:17 Diltiazem Hcl Cd 120 Mg Cap.Sa.24h PO 120 mg DAILY ANIYA Administration Ergocalciferol 50,000 unit 06/15/22 09:00 Ergocalciferol 50,000 Unit Capsule PO We [facility] Fluticasone/Umeclidinium/V
[2022-06-09] MEDS: RIVAROXABAN 15 MG TABLET PO (17:53)
[2022-06-09 20:55] LABS: Hemoglobin A1C 6.4 % (<5.7)
[2022-06-09] MEDS: SOTALOL HCL 80 MG TABLET PO (21:32)
[2022-06-09 21:43] LABS: Glucose Point of Care 187 mg/dl (65-105)
[2022-06-10] VITALS (18 sets, daily range): BP systolic 105–145; BP diastolic 54–63; PULSE 59–98; RESP 12–20; TEMP 36.2–36.6; O2SAT 91–99
[2022-06-10] MEDS: methylPREDNISolone SOD SUCC 125 MG VIAL 60 MG IV PUSH ×4 (02:01→17:00)
[2022-06-10] MEDS: ALBUTEROL SULFATE NEB 2.5 MG/3 ML INH 5 MG INHALATION ×3 (02:13→20:37)
[2022-06-10] MEDS: IPRATROPIUM BR 0.02% INH SOLN 0.5 MG/2.5 ML VIAL INHALATION ×3 (02:13→20:37)
[2022-06-10 08:21] LABS: Glucose Point of Care 133 mg/dl (65-105)
[2022-06-10] MEDS: FLUTICASONE/UMECLIDIN/VILANTER 100-62.5-25 MCG ELLIPTA 1 PUFF INHALATION (08:27)
--- NOTE | 2022-06-10 09:30 | PM.IMPN ---
Progress Note: A&P Assessment and Plan (1) COPD with acute exacerbation: Code(s): J44.1 - Chronic obstructive pulmonary disease with (acute) exacerbation Status: Acute (2) Severe protein-calorie malnutrition: Code(s): E43 - Unspecified severe protein-calorie malnutrition Status: Acute (3) Hypertension: Code(s): I10 - Essential (primary) hypertension Status: Acute (4) Hypercholesterolemia: Code(s): E78.00 - Pure hypercholesterolemia, unspecified Status: Acute (5) Atrial fibrillation: Qualifiers: Atrial fibrillation type: unspecified Qualified Code(s): I48.91 - Unspecified atrial fibrillation Code(s): I48.91 - Unspecified atrial fibrillation Status: Acute (6) Hypokalemia: Code(s): E87.6 - Hypokalemia Status: Acute Plan 06/08/22 ?-continue with Solu-Medrol -continue with DuoNebs. -I did consult dietitian for supplements. -the patient is already on sotalol and Cardizem for AFib. -continue with pravastatin -continue with sotalol -continue with Xarelto -continue with Cardizem 06/09/22 pt improving slowly poor air movement rescue inhaler duonebs solumedrol cont current replete K 06/10/22 still not at baseline severe KENNEDY but does not become hypoxic consult pulm for recs Subjective Date/time seen: 06/10/22 09:30 breathing not at baseline still but does feel improved from admission Review of Systems Review of Systems: All systems reviewed & are unremarkable except as noted in HPI and below Exam Narrative: GEN: NAD, AAOx3, cooperative, chronically ill appearing pink puffer HEENT: NCAT, MMM, EOMI Neck: no JVD Heart: S1S2 RRR Lungs: poor air movement with over inflated lungs Abd: soft, NT, ND, bowel sounds normoactive Ext: moves all, no cyanosis, no clubbing, no edema Neuro: normal cognition, moves all extremities equally,normal gait Psych: mood and affect congruent Objective Data Vital Signs Vital Signs: Vital Signs - 24 hr 06/09/22 13:40 06/09/22 13:49 06/09/22 14:19 Temperature 98.3 F Pulse Rate 73 76 73 Respiratory Rate 18 18 16 Blood Pressure 137/66 Pulse Oximetry 95 Oxygen Delivery 06/09/22 12:00 06/09/22 16:00 06/09/22 19:34 Temperature 98 F Pulse Rate 76 73 77 Respiratory Rate 18 Blood Pressure 142/64 H Pulse Oximetry 96 Oxygen Delivery 06/09/22 20:45 06/09/22 20:45 06/09/22 20:55 Temperature Pulse Rate 74 72 Respiratory Rate 16 16 Blood Pressure Pulse Oximetry 94 Oxygen Delivery Room Air 06/09/22 21:32 06/10/22 02:15 06/10/22 02:34 Temperature Pulse Rate 72 84 79 Respiratory Rate 20 18 Blood Pressure Pulse Oximetry Oxygen Delivery 06/10/22 04:35 06/09/22 20:00 06/10/22 00:00 Temperature 97.8 F Pulse Rate 68 69 62 Respiratory Rate 17 Blood Pressure 105/54 L Pulse Oximetry 91 Oxygen Delivery 06/10/22 04:00 06/10/22 08:28 06/10/22 08:35 Temperature Pulse Rate 59 L 84 80 Respiratory Rate 12 12 Blood Pressure Pulse Oximetry Oxygen Delivery Intake/Output Intake/Output: Intake & Output 06/07/22 06/08/22 06/09/22 06/10/22 23:59 23:59 23:59 23:59 Intake Total 860 300 Balance 860 300 Meds/Results Medications: Active Medications Generic Name Dose Route Start Last Admin Trade Name Freq PRN Reason Stop Dose Admin Albuterol 5 mg 06/08/22 20:00 06/10/22 08:27 Albuterol Sulfate Neb 2.5 Mg/3 Ml Inh INHALATION 5 mg Q6HRT ANIYA Administration Dextrose 12.5 gm 06/09/22 18:31 Dextrose 50% 25 Gm/50 Ml Syringe IV PUSH PRN PRN Hypoglycemia Protocol Diltiazem HCl 120 mg 06/09/22 09:00 06/09/22 08:17 Diltiazem Hcl Cd 120 Mg Cap.Sa.24h PO 120 mg DAILY ANIYA Administration Ergocalciferol 50,000 unit 06/15/22 09:00 Ergocalciferol 50,000 Unit Capsule PO We ANIYA Fluticasone/Umeclidinium/Vilanterol 1 puff 06/09/22 08:00 1
[2022-06-10] MEDS: SOTALOL HCL 40 MG TABLET PO (10:10)
[2022-06-10] MEDS: MAGNESIUM OXIDE 400 MG TABLET PO (10:11)
[2022-06-10] MEDS: PRAVASTATIN SODIUM 20 MG TABLET PO (10:11)
[2022-06-10 11:02] LABS: Anion Gap 7 mmol/L (8-16); Blood Urea Nitrogen 23 mg/dL (7-17); Calcium 9.5 mg/dL (8.4-10.2); Carbon Dioxide 26 mmol/L (22-30); Chloride 105 mmol/L (98-107); Estimated CRCL calculation 30 ml/min; Estimated Glomerular Filt Rate > 60; Glucose 237 mg/dL (65-110); Potassium 4.6 mmol/L (3.4-5.0); Sodium 138 mmol/L (137-145)
[2022-06-10 12:50] LABS: Glucose Point of Care 248 mg/dl (65-105)
[2022-06-10] MEDS: ALBUTEROL SULFATE NEB 2.5 MG/3 ML INH 5 MG (13:10)
[2022-06-10] MEDS: IPRATROPIUM BR 0.02% INH SOLN 0.5 MG/2.5 ML VIAL (13:10)
[2022-06-10] MEDS: INSULIN ASPART (*BKC) 100 UNITS/ML SUB-Q (13:25)
[2022-06-10] MEDS: RIVAROXABAN 15 MG TABLET PO (16:58)
[2022-06-10 17:12] LABS: Glucose Point of Care 183 mg/dl (65-105)
[2022-06-10] MEDS: SOTALOL HCL 80 MG TABLET PO (20:55)
[2022-06-11] VITALS (22 sets, daily range): BP systolic 108–151; BP diastolic 52–92; PULSE 59–88; RESP 16–20; TEMP 36.3–36.7; O2SAT 94–100
--- NOTE | 2022-06-11 | ECHO_ITS ---
Patient Info Name: Sofi Zeng Age: 72 years : 1950 Gender: Female Ht: 61 in Wt: 78 lbs BSA: 1.22 m2 HR: 78 bpm BP: 145 / 63 mmHg Heart Rhythm: Sinus Rhythm Exam Date: 06/11/2022 9:39 AM Exam Location: [facility] Patient Status: Outpatient Admit Date: 06/08/2022 Staff Ordering Physician: Holley Pavon MD Neon Electrician: Stevenson Gomez RDCS Attending Provider: Holley Pavon MD Referring Physician: Savanah JIMÉNEZ; Exam Type: CA echo doppler color flow Study Info Indications - congestive heart failure Complete two-dimensional, color flow and Doppler transthoracic echocardiogram is performed. Summary 1. Complete two-dimensional, color flow and Doppler transthoracic echocardiogram is performed. 2. Normal left ventricular size, thickness and hyperdynamic appearing systolic function. 3. Grade 1 diastolic noncompliance. 4. Mild tricuspid valve regurgitation. Left Ventricle Left ventricular chamber dimension is normal. Left ventricular systolic function is hyperdynamic, estimated at >70%. The left ventricular diastolic function is grade I diastolic dysfunction. Right Ventricle Right ventricular chamber dimension is normal. Left Atria Left atrial chamber dimension is normal. Right Atria Right atrial chamber dimension is normal. Aortic Valve The aortic valve is trileaflet. There is mild aortic valve sclerosis. Pulmonic Valve The pulmonic valve is normal. Mitral Valve The mitral valve has normal leaflets. Tricuspid Valve The tricuspid valve leaflets are normal. There is mild tricuspid valve regurgitation. Pericardium/Pleural The pericardium appears normal. Aorta The aortic root size at the sinus of Valsalva is normal. Left Ventricular Outflow Tract Name Value Normal LVOT Doppler LVOT Peak Gradient 5 mmHg LVOT Mean Gradient 3 mmHg LVOT VTI 26 cm LVOT VTI/AV VTI Ratio 1.1 Mitral Valve Name Value Normal MV Doppler MV Peak Gradient 4 mmHg MV Mean Gradient 1 mmHg MV Decel [place] 360 cm/s2 MV PHT 56 ms MV Area (PHT) 3.9 cm2 4.0-5.0 MV Diastolic Function MV E Peak Velocity 70 cm/s MV A Peak Velocity 64 cm/s MV E/A 1.1 MV Decel Time 194 ms MV Annular TDI MV E/e' (Septal) 12.3 <=8.0 MV E/e' (Lateral) 10.8 <=8.0 MV E/e' (Average) 11.5 Tricuspid Valve
[2022-06-11] MEDS: methylPREDNISolone SOD SUCC 125 MG VIAL 60 MG IV PUSH ×3 (00:16→12:31)
[2022-06-11] MEDS: LEVALBUTEROL HFA (*SP) 15 GM INHALER 2 PUFF INHALATION ×2 (00:50→16:44)
[2022-06-11] MEDS: IPRATROPIUM BR 0.02% INH SOLN 0.5 MG/2.5 ML VIAL INHALATION ×4 (02:05→14:04)
[2022-06-11] MEDS: ALBUTEROL SULFATE NEB 2.5 MG/3 ML INH 5 MG INHALATION ×4 (02:05→14:04)
[2022-06-11 05:05] LABS: Basophils Percent Auto 0.1 % (0.2-1.2); Hematocrit 40.4 % (37.0-47.0); Hemoglobin 13.1 g/dL (12.0-15.0); Immature Granulocyte Percent A 2.1 % (0-0.5); Lymphocytes Absolute Auto 0.74 K/mm3 (0.9-3.2); Lymphocytes Percent Auto 3.8 % (18.3-44.2); Mean Corpuscular HGB Conc 32.4 g/dl (32-36); Mean Corpuscular Hemoglobin 31.6 pg (26-34); Mean Corpuscular Volume 97.3 fl (80-100); Monocytes Absolute Auto 0.6 K/mm3 (0.1-0.6); Monocytes Percent Auto 2.9 % (2.6-8.5); Neutrophils Absolute Auto 17.6 K/mm3 (1.3-6.7); Neutrophils Percent Auto 91.1 % (45.5-73.1); Platelet Count Result 184 k/mm3 (150-375); Red Blood Count 4.15 M/mm3 (4.2-5.4); Red Cell Distribution Width 12.9 % (11.5-14.5); White Blood Count 19.3 K/mm3 (4.5-10.0)
[2022-06-11 05:28] LABS: Anion Gap 6 mmol/L (8-16); Blood Urea Nitrogen 27 mg/dL (7-17); Calcium 8.8 mg/dL (8.4-10.2); Carbon Dioxide 29 mmol/L (22-30); Chloride 104 mmol/L (98-107); Estimated CRCL calculation 30 ml/min; Estimated Glomerular Filt Rate > 60; Glucose 142 mg/dL (65-110); Magnesium 2.1 mg/dL (1.6-2.3); Potassium 4.1 mmol/L (3.4-5.0); Sodium 139 mmol/L (137-145)
[2022-06-11 05:42] LABS: Alveolar/Arterial O2 Gradient 35.4 mmHg; Base Excess ABG 4.8 mEq/l (+/-2.0); Device ROOM AIR; Fractional Inspired Oxygen 21 %; HCO3 ABG 29.8 mEq/l (22.0-26.0); Modified Allen's Test Pass; Oxygen Content ABG 17.6 %vol (16.0-22.0); Oxygen Saturation ABG 91.6 % (95.0-100.0); PCO2 ABG 45.4 mmHg (35.0-45.0); PO2 FiO2 Ratio Arterial Blood 2.86 %; Site Drawn LEFT RADIAL; Total Hemoglobin 13.8 g/dL (12.0-18.0); pH ABG 7.435 (7.350-7.450)
[2022-06-11] MEDS: FLUTICASONE/UMECLIDIN/VILANTER 100-62.5-25 MCG ELLIPTA 1 PUFF INHALATION (07:52)
[2022-06-11 08:21] LABS: Glucose Point of Care 145 mg/dl (65-105)
[2022-06-11] MEDS: MAGNESIUM OXIDE 400 MG TABLET PO (10:04)
[2022-06-11] MEDS: PRAVASTATIN SODIUM 20 MG TABLET PO (10:04)
[2022-06-11] MEDS: SOTALOL HCL 40 MG TABLET PO (10:05)
[2022-06-11 12:10] LABS: Glucose Point of Care 254 mg/dl (65-105)
--- NOTE | 2022-06-11 12:13 | PM.IMPN ---
Progress Note: A&P Assessment and Plan (1) COPD with acute exacerbation: Code(s): J44.1 - Chronic obstructive pulmonary disease with (acute) exacerbation Status: Acute (2) Severe protein-calorie malnutrition: Code(s): E43 - Unspecified severe protein-calorie malnutrition Status: Acute (3) Hypertension: Code(s): I10 - Essential (primary) hypertension Status: Acute (4) Hypercholesterolemia: Code(s): E78.00 - Pure hypercholesterolemia, unspecified Status: Acute (5) Atrial fibrillation: Qualifiers: Atrial fibrillation type: unspecified Qualified Code(s): I48.91 - Unspecified atrial fibrillation Code(s): I48.91 - Unspecified atrial fibrillation Status: Acute (6) Hypokalemia: Code(s): E87.6 - Hypokalemia Status: Acute Plan 06/08/22 ?-continue with Solu-Medrol -continue with DuoNebs. -I did consult dietitian for supplements. -the patient is already on sotalol and Cardizem for AFib. 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 Clinical Academic Allergist ECHO pending Myrbetriq trial for her over active bladder UA ordered and positive after review of previous UCx Cefepime to cover pseudomonas metformin 250mg daily while on steroids Subjective Date/time seen: 06/11/22 12:13 feeling better we discuss that HgA1c does not correlate with the BG levels we are seeing here in the hospital while on steroids we discuss UA for her frequent UTIs and initiation of Myrbetriq follows w Moni [facility]INA for Pulmonolgist Dr Bass. pt feels very comfortable with the care she is receiving from Moni. I will treat acute exacerbation and defer to her established pulm provider Review of Systems Review of Systems: All systems reviewed & are unremarkable except as noted in HPI and below Exam Narrative: GEN: NAD, AAOx3, cooperative, chronically ill appearing severely malnourished appearing HEENT: NCAT, MMM, EOMI Neck: no JVD Heart: S1S2 RRR Lungs: poor air movement with over inflated lungs Abd: soft, NT, ND, bowel sounds normoactive Ext: moves all, no cyanosis, no clubbing, no edema Neuro: normal cognition, moves all extremities equally, no focal deficits Psych: mood and affect congruent Objective Data Vital Signs Vital Signs: Vital Signs - 24 hr 06/10/22 13:11 06/10/22 13:15 06/10/22 14:00 Temperature 97.8 F Pulse Rate 98 97 77 Respiratory Rate 12 12 17 Blood Pressure 112/56 L Pulse Oximetry 93 Oxygen Delivery 06/10/22 16:00 06/10/22 20:40 06/10/22 20:40 Temperature Pulse Rate 65 72 Respiratory Rate 16 Blood Pressure Pulse Oximetry 95 Oxygen Delivery Room Air 06/10/22 20:53 06/10/22 20:00 06/10/22 22:36 Temperature 97.2 F L Pulse Rate 75 75 70 Respiratory Rate 16 16 20 Blood Pressure 145/63 H Pulse Oximetry 95 99 Oxygen Delivery Room Air 06/10/22 20:00 06/11/22 00:00 06/11/22 03:05 Temperature Pulse Rate 73 65 86 Respiratory Rate 16 Blood Pressure Pulse Oximetry Oxygen Delivery 06/11/22 04:00 06/11/22 03:18 06/11/22 06:00 Temperature 97.3 F L Pulse Rate 61 88 61 Respiratory Rate 16 18 Blood Pressure 108/57 L Pulse Oximetry 96 Oxygen Delivery 06/11/22 07:52 06/11/22 07:56 06/11/22 08:03 Temperature Pulse Rate 65 65 68 Respiratory Rate 16 18 16 Blood Pressure Pulse Oximetry 95 Oxygen Delivery Room Air 06/11/22 08:00 06/11/22 10:03 06/11/22 10:05 Temperature Pulse Rate 59 L 82 80 Respiratory Rate 18 Blood Pressure 112/52 L Pulse Oximetry 96 Oxygen Delivery 06/11/22 10:00 Temperature Pulse Ra
[2022-06-11] MEDS: INSULIN ASPART (*BKC) 100 UNITS/ML SUB-Q ×2 (12:31→17:37)
[2022-06-11 13:34] LABS: Add Urine Microscopic? YES; Appearance Urine Cloudy (Clear); Bacteria Urine 1+ /hpf; Bilirubin Urine Negative (Negative); Blood Urine 3+ (Negative); Color Urine Yellow (Yellow); Glucose Urine UA 2+ mg/dL (Negative); Ketones Urine Negative (Negative); Leukocyte Esterase Ur Negative LEU/UL (Negative); Mucus Urine Rare /lpf; Nitrate Urine Positive (Negative); Protein Urine 1+ mg/dL (Negative); RBC Urine >75 /hpf (0-2); Specific Grav Ur 1.019 (1.001-1.035); Squamous Epithelial Cell Urine Rare /hpf (Few); Urobilinogen Urine Negative mg/dL (<2.0); WBC Urine 51-75 /hpf
[2022-06-11] MEDS: metFORMIN HCL 250 MG TABLET PO (14:28)
[2022-06-11] MEDS: MIRABEGRON 25 MG ER TABLET PO (14:28)
[2022-06-11 17:24] LABS: Glucose Point of Care 218 mg/dl (65-105)
[2022-06-11] MEDS: RIVAROXABAN 15 MG TABLET PO (17:37)
[2022-06-11 20:37] LABS: Glucose Point of Care 260 mg/dl (65-105)
[2022-06-11] MEDS: SOTALOL HCL 80 MG TABLET PO (21:27)
[2022-06-12] VITALS (17 sets, daily range): BP systolic 122–155; BP diastolic 65–78; PULSE 58–76; RESP 14–16; TEMP 36.4–36.8; O2SAT 94–100
[2022-06-12] MEDS: IPRATROPIUM BR 0.02% INH SOLN 0.5 MG/2.5 ML VIAL INHALATION ×4 (02:00→20:46)
[2022-06-12] MEDS: ALBUTEROL SULFATE NEB 2.5 MG/3 ML INH 5 MG INHALATION ×4 (02:00→20:46)
[2022-06-12] MEDS: methylPREDNISolone SOD SUCC 125 MG VIAL 60 MG IV PUSH ×2 (04:30→12:30)
[2022-06-12 06:08] LABS: Basophils Percent Auto 0.1 % (0.2-1.2); Hematocrit 40.4 % (37.0-47.0); Hemoglobin 13.2 g/dL (12.0-15.0); Immature Granulocyte Absolute 0.15 K/mm3 (0.00-0.031); Immature Granulocyte Percent A 0.9 % (0-0.5); Lymphocytes Absolute Auto 0.86 K/mm3 (0.9-3.2); Lymphocytes Percent Auto 4.9 % (18.3-44.2); Mean Corpuscular HGB Conc 32.7 g/dl (32-36); Mean Corpuscular Hemoglobin 31.7 pg (26-34); Mean Corpuscular Volume 96.9 fl (80-100); Mean Platelet Volume 10.9 fl (7.4-10.4); Monocytes Absolute Auto 0.7 K/mm3 (0.1-0.6); Monocytes Percent Auto 3.9 % (2.6-8.5); Neutrophils Absolute Auto 15.7 K/mm3 (1.3-6.7); Neutrophils Percent Auto 90.2 % (45.5-73.1); Platelet Count Result 182 k/mm3 (150-375); Red Blood Count 4.17 M/mm3 (4.2-5.4); Red Cell Distribution Width 13.1 % (11.5-14.5); White Blood Count 17.5 K/mm3 (4.5-10.0)
[2022-06-12 06:22] LABS: Anion Gap 6 mmol/L (8-16); Blood Urea Nitrogen 29 mg/dL (7-17); Calcium 8.8 mg/dL (8.4-10.2); Carbon Dioxide 29 mmol/L (22-30); Chloride 105 mmol/L (98-107); Estimated CRCL calculation 34 ml/min; Estimated Glomerular Filt Rate > 60; Glucose 144 mg/dL (65-110); Magnesium 2.1 mg/dL (1.6-2.3); Potassium 3.9 mmol/L (3.4-5.0); Sodium 140 mmol/L (137-145)
[2022-06-12] MEDS: FLUTICASONE/UMECLIDIN/VILANTER 100-62.5-25 MCG ELLIPTA 1 PUFF INHALATION (07:35)
[2022-06-12] MEDS: SOTALOL HCL 40 MG TABLET PO (08:43)
[2022-06-12] MEDS: metFORMIN HCL 250 MG TABLET PO (08:43)
[2022-06-12] MEDS: MAGNESIUM OXIDE 400 MG TABLET PO (08:43)
[2022-06-12] MEDS: PRAVASTATIN SODIUM 20 MG TABLET PO (08:43)
[2022-06-12] MEDS: MIRABEGRON 25 MG ER TABLET PO (08:43)
[2022-06-12 08:54] LABS: Glucose Point of Care 143 mg/dl (65-105)
[2022-06-12 12:24] LABS: Glucose Point of Care 262 mg/dl (65-105)
[2022-06-12] MEDS: INSULIN ASPART (*BKC) 100 UNITS/ML SUB-Q (12:28)
[2022-06-12] MEDS: RIVAROXABAN 15 MG TABLET PO (17:06)
[2022-06-12 17:10] LABS: Glucose Point of Care 122 mg/dl (65-105)
--- NOTE | 2022-06-12 18:25 | PM.IMPN ---
Progress Note: A&P Assessment and Plan (1) COPD with acute exacerbation: Code(s): J44.1 - Chronic obstructive pulmonary disease with (acute) exacerbation Status: Acute (2) Severe protein-calorie malnutrition: Code(s): E43 - Unspecified severe protein-calorie malnutrition Status: Acute (3) Hypertension: Code(s): I10 - Essential (primary) hypertension Status: Acute (4) Hypercholesterolemia: Code(s): E78.00 - Pure hypercholesterolemia, unspecified Status: Acute (5) Atrial fibrillation: Qualifiers: Atrial fibrillation type: unspecified Qualified Code(s): I48.91 - Unspecified atrial fibrillation Code(s): I48.91 - Unspecified atrial fibrillation Status: Acute (6) Hypokalemia: Code(s): E87.6 - Hypokalemia Status: Acute (7) Diastolic heart failure: Code(s): I50.30 - Unspecified diastolic (congestive) heart failure Status: Acute Plan 06/08/22 ?-continue with Solu-Medrol -continue with DuoNebs. -I did consult dietitian for supplements. -the patient is already on sotalol and Cardizem for AFib. 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 Drywall Mechanic ECHO pending Myrbetriq trial for her over active bladder UA ordered and positive after review of previous UCx Cefepime to cover pseudomonas metformin 250mg daily while on steroids Subjective Date/time seen: 06/12/22 18:25 pt doing ok, breathing better, ECHO reviewed w pt Exam Narrative: GEN: NAD, AAOx3, cooperative, chronically ill appearing severely malnourished appearing HEENT: NCAT, MMM, EOMI Neck: no JVD Heart: S1S2 RRR Lungs: poor air movement with over inflated lungs Ext: moves all, no cyanosis, no clubbing, no edema Neuro: normal cognition, moves all extremities equally, no focal deficits Psych: mood and affect congruent Objective Data Vital Signs Vital Signs: Vital Signs - 24 hr 10/08/22 20:40 06/11/22 20:05 06/11/22 20:08 Temperature 97.6 F Pulse Rate 84 74 74 Respiratory Rate 20 16 Blood Pressure 143/92 H Pulse Oximetry 100 94 Oxygen Delivery Room Air 06/11/22 21:27 06/11/22 20:00 06/12/22 02:00 Temperature Pulse Rate 78 78 62 Respiratory Rate 16 Blood Pressure Pulse Oximetry Oxygen Delivery 06/12/22 02:10 06/12/22 04:57 06/12/22 07:38 Temperature 97.7 F Pulse Rate 67 60 60 Respiratory Rate 16 16 16 Blood Pressure 122/65 Pulse Oximetry 95 Oxygen Delivery 06/12/22 07:50 06/12/22 08:00 06/12/22 08:43 Temperature Pulse Rate 65 65 Respiratory Rate 16 Blood Pressure Pulse Oximetry 95 Oxygen Delivery Room Air 06/12/22 08:00 06/12/22 13:42 06/12/22 13:53 Temperature Pulse Rate 62 60 62 Respiratory Rate 16 16 Blood Pressure Pulse Oximetry Oxygen Delivery 06/12/22 12:00 06/12/22 15:05 06/12/22 16:00 Temperature 97.5 F L Pulse Rate 65 66 58 L Respiratory Rate 14 Blood Pressure 150/75 H Pulse Oximetry 94 Oxygen Delivery Intake/Output Intake/Output: Intake & Output 06/09/22 06/10/22 06/11/22 06/12/22 23:59 23:59 23:59 23:59 Intake Total 860 1320 1650 1540 Output Total 300 800 750 Balance 860 1020 850 790 Meds/Results Medications: Active Medications Generic Name Dose Route Start Last Admin Trade Name Freq PRN Reason Stop Dose Admin Albuterol 5 mg 06/08/22 20:00 06/12/22 13:41 Albuterol Sulfate Neb 2.5 Mg/3 Ml Inh INHALATION 5 mg Q6HRT ANIYA Administration Dextrose 12.5 gm 06/09/22 18:31 Dextrose 50% 25 Gm/50 Ml Syringe IV PUSH PRN PRN Hypoglycemia P
[2022-06-12 20:41] LABS: Glucose Point of Care 248 mg/dl (65-105)
[2022-06-12] MEDS: SOTALOL HCL 80 MG TABLET PO (20:52)
[2022-06-13] VITALS (13 sets, daily range): BP systolic 110–142; BP diastolic 63–64; PULSE 52–84; RESP 14–16; TEMP 36.6; O2SAT 92–96
[2022-06-13] MEDS: methylPREDNISolone SOD SUCC 125 MG VIAL 60 MG IV PUSH (00:52)
[2022-06-13] MEDS: IPRATROPIUM BR 0.02% INH SOLN 0.5 MG/2.5 ML VIAL INHALATION ×2 (04:59→14:11)
[2022-06-13] MEDS: ALBUTEROL SULFATE NEB 2.5 MG/3 ML INH 5 MG INHALATION ×2 (04:59→14:11)
--- NOTE | 2022-06-13 05:09 | PCRCNOTE ---
pt sound asleep at 0200 rounds. RT informed RN and both agreed to keep medication pulled until pt wakes up. Pt woke up at 0445 and RT administered 0200 treatment at 0459.
[2022-06-13 08:01] LABS: Glucose Point of Care 177 mg/dl (65-105)
[2022-06-13] MEDS: SOTALOL HCL 40 MG TABLET PO (08:27)
[2022-06-13] MEDS: metFORMIN HCL 250 MG TABLET PO (08:27)
[2022-06-13] MEDS: PRAVASTATIN SODIUM 20 MG TABLET PO (08:27)
[2022-06-13] MEDS: MAGNESIUM OXIDE 400 MG TABLET PO (08:27)
[2022-06-13] MEDS: MIRABEGRON 25 MG ER TABLET PO (08:27)
[2022-06-13] MEDS: LEVALBUTEROL HFA (*SP) 15 GM INHALER 2 PUFF INHALATION (08:41)
[2022-06-13] MEDS: FLUTICASONE/UMECLIDIN/VILANTER 100-62.5-25 MCG ELLIPTA 1 PUFF INHALATION (10:28)
--- NOTE | 2022-06-13 11:19 | PM.DS ---
DS: Admitting Diagnosis Discharge Date 06/13/22 Admitting Diagnosis (1) COPD with acute exacerbation: ?Code(s): J44.1 - Chronic obstructive pulmonary disease with (acute) exacerbation ?Status:?Acute ?Assessment and Plan: (2) Severe protein-calorie malnutrition: ?Code(s): E43 - Unspecified severe protein-calorie malnutrition ?Status:?Acute ?Assessment and Plan: (3) Hypertension: ?Code(s): I10 - Essential (primary) hypertension ?Status:?Acute ?Assessment and Plan: (4) Hypercholesterolemia: ?Code(s): E78.00 - Pure hypercholesterolemia, unspecified ?Status:?Acute ?Assessment and Plan: (5) Atrial fibrillation: ?Qualifiers: ?Atrial fibrillation type:?unspecified? Qualified Code(s):?I48.91 - Unspecified atrial fibrillation ?Code(s): I48.91 - Unspecified atrial fibrillation ?Status:?Acute ?Assessment and Plan: DS: Discharge Diagnosis Discharge Diagnosis (1) COPD with acute exacerbation: Code(s): J44.1 - Chronic obstructive pulmonary disease with (acute) exacerbation Status: Acute (2) Hypertension: Code(s): I10 - Essential (primary) hypertension Status: Acute (3) Severe protein-calorie malnutrition: Code(s): E43 - Unspecified severe protein-calorie malnutrition Status: Acute (4) Atrial fibrillation: Qualifiers: Atrial fibrillation type: unspecified Qualified Code(s): I48.91 - Unspecified atrial fibrillation Code(s): I48.91 - Unspecified atrial fibrillation Status: Acute (5) Hypokalemia: Code(s): E87.6 - Hypokalemia Status: Acute (6) Diastolic heart failure: Code(s): I50.30 - Unspecified diastolic (congestive) heart failure Status: Acute (7) Hypercholesterolemia: Code(s): E78.00 - Pure hypercholesterolemia, unspecified Status: Acute DS: Summary Hospital Course Reason for hospitalization: Chief Complaint: ? Shortness of breath Narrative: ?this is a 72-year-old female patient who has a history of COPD.? She also has a history of granulomatosis.? The patient has progressively gotten more short of breath over the last several weeks.? This is been associated with a? nonproductive cough.? She denies any fever chills.? No nausea vomiting or diarrhea.? She has the his route of COPD and atrial fibrillation but denies any CHF.? The patient gets short of breath with only a few steps.? She had little relief from the Decadron that she was given via EN route per EMS to the hospital.? The patient was given Solu-Medrol in the emergency room as well as a Duo? Nebs.? Chest x-ray was read as no acute cardiopulmonary disease.? The patient is being admitted to observation status on the date of service of Hospital Course: 06/08/22 ?-continue with Solu-Medrol ?-continue with DuoNebs. ?-I did consult dietitian for supplements. -the patient is already on sotalol and Cardizem for AFib. 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 Public Relations Intern ECHO pending Myrbetriq trial for her over active bladder UA ordered and positive after review of previous UCx Cefepime to cover pseudomonas metformin 250mg daily while on steroids 06/12/22 echocardiogram reviewed and did not reveal significant etiology for severe pulmonary symptoms, spoken with pulmonology and they are attributed to her advanced lung disease Patient with Klebsiella UTI covered by cefepime she is discharged home in stable condition with oral antibiotic cefdinir and a steroid taper she reports improvement of hair urinary symptoms with initiation of Myrbetriq
[2022-06-13 12:04] LABS: Glucose Point of Care 170 mg/dl (65-105)
--- NOTE | 2022-06-13 12:52 | PCRCNOTE ---
HOME O2 EVAL COMPLETE, NO REQUIREMENTS
== END 2022-06-13 15:04 | disposition home health service (06) | DRG 191 ==
LOC: ANHED 17:58 → ANH2MED 19:48
PROVIDERS: Admitting Provider Hospitalist; Emergency Provider Emergency Medicine; PCP Nurse Practitioner Family; Visit Provider Hospitalist
DX: J44.1 Chronic obstructive pulmonary disease with (acute) exacerbation (principal); I48.20 Chronic atrial fibrillation, unspecified; N39.0 Urinary tract infection, site not specified; I50.30 Unspecified diastolic (congestive) heart failure; Z68.1 Body mass index [BMI] 19.9 or less, adult; R63.6 Underweight; I11.0 Hypertensive heart disease with heart failure; E87.6 Hypokalemia; E78.00 Pure hypercholesterolemia, unspecified; L92.9 Granulomatous disorder of the skin and subcutaneous tissue, unspecified; B96.1 Klebsiella pneumoniae [K. pneumoniae] as the cause of diseases classified elsewhere; H40.9 Unspecified glaucoma; R91.1 Solitary pulmonary nodule; Z20.822 Contact with and (suspected) exposure to COVID-19; Z87.442 Personal history of urinary calculi; Z79.01 Long term (current) use of anticoagulants
CPT/HCPCS: 36415; 36600; 71045; 80048; 80053; 81001; 82805; 82948; 83036; 83605; 83735; 83880; 84484; 85025; 85610; 85730; 87040; 87077; 87086; 87186; 93005; 93306; 94618; 94640; 96374; 96376; 99285; A9270; C9803; G0378; J0692; J1815; J2930; U0003; U0005

== ENCOUNTER 2022-08-29 23:40 | Inpatient (IN) | payer OTHER, SELFPAY ==
--- NOTE | ~2022-08-29 | CT_ITS ---
Clinical Indication: Chest pain, shortness of breath CT Scan of the Chest with Contrast: Technique: Contiguous sections were acquired throughout the chest after intravenous administration of 100 cc of Omnipaque 350. Dose reduction technique was used on this scan by utilizing automated expos ure control and iterative reconstruction technique. The dose-length product (DLP) was 138.50 mGy-cm. COMPARISON: 12/14/2021 Findings: There is no evidence of any significant mediastinal, hilar or axillary lymphadenopathy. There is no f illing defect in the pulmonary arterial tree to suggest pulmonary embolus. There is no evidence of ao rtic dissection or aneurysm. There is no evidence of pleural or pericardial effusion. There is extensive left upper lobe and lingular consolidation. Underlying diffuse moderate to severe emphysema present. Stable nodules in the left upper and lower lobes (axial images 53, 61). Images through the upper abdomen reveal no abnormalities. Impression: No evidence of pulmonary embolus, aortic dissection, or aortic aneurysm. Extensive left upper lobe pneumonia. Follow-up to radiographic resolution advised. Underlying moderate to severe diffuse emphysema. Reviewed, dictated and finalized at location . MARKER Impression: No evidence of pulmonary embolus, aortic dissection, or aortic aneurysm. Extensive left upper lobe pneumonia. Follow-up to radiographic resolution advis ed. Underlying moderate to severe diffuse emphysema.
--- NOTE | ~2022-08-29 | CT_ITS ---
CT Scan of the Chest without Contrast: Clinical Indication: Pneumonia Technique: Contiguous sections were acquired throughout the chest without intravenous contrast. Dose reduction technique was used on this scan by utilizing automated exposure control and iterative recon struction technique. The dose-length product (DLP) was 141.73 mGy-cm. COMPARISON: 08/30/2022 Findings: There is no evidence of any significant mediastinal, hilar or axillary lymphadenopathy. Coronary gena ry calcium case is are present. No aortic aneurysm. There is no evidence of pleural or pericardial effusion. Extensive consolidation of the lingula is again present. There has been significant improvement in th e airspace disease in the posterior superior left upper lobe as compared to prior exam, but the exten sive lingular consolidation is largely unchanged. Questionable focal areas of cavitation or necrosis within the consolidation. Small left pleural effusion is present. There is interstitial prominence and mild airspace disease de pendently adjacent to the effusion and left lower lobe. Stable focal pulmonary nodules in the superior segment left lower lobe (axial image 31), and more inf eriorly in the left lower lobe (axial image 58). Previously noted left upper lobe nodule may be obscu red by consolidation. Right lung is clear. Moderate to severe emphysema present. Images through the upper abdomen reveal partially imaged nonobstructing right renal stone. Suspected medullary nephrocalcinosis bilaterally. Impression: Extensive lingular pneumonia is essentially unchanged from prior exam. Questionable areas of cavitati on or necrosis within the consolidation. Consolidation seen previously in the posterior superior left upper lobe is essentially resolved. Small left pleural effusion. Dependent interstitial thickening and haziness adjacent to the effusion is present, which could reflect atelectatic change versus additional pneumonia. Stable left lower lobe pulmonary nodules, as detailed above. Moderate to severe emphysema. Reviewed, dictated and finalized at [facility]. ICAL MOLECULAR GENETICIST Impression: Extensive lingular pneumonia is essentially unchanged from prior exam. Question able areas of cavitation or necrosis within the consolidation. Consolidation seen previously in the posterior superior left upper lobe is esse ntially resolved. Small left pleural effusion. Dependent interstitial thickening and haziness adj acent to the effusion is present, which could reflect atelectatic change versus additional pneumonia. Stable left lower lobe pulmonary nodules, as detailed above. Moderate to severe emphysema.
--- NOTE | ~2022-08-29 | XR_ITS ---
Portable chest x-ray Comparison: 09/05/2022 Clinical History: Pneumonia Findings: Extensive left upper lobe consolidation is similar to prior exam. Right lung remains clear . Underlying COPD pattern. Cardiomediastinal silhouette is stable. Bones and soft tissues are unrema rkable. Impression: Extensive left upper lobe pneumonia similar to prior exam. COPD. Reviewed, dictated and finalized at [facility]. ING SHOW HOST Impression: Extensive left upper lobe pneumonia similar to prior exam. COPD.
--- NOTE | ~2022-08-29 | XR_ITS ---
Portable chest x-ray Comparison: 08/31/2022 Clinical History: Pneumonia Findings: Extensive left upper lobe consolidation is overall similar to prior exam. Right lung remai ns clear. COPD pattern. Cardiomediastinal silhouette is stable. Bones and soft tissues are unremarka ble. Impression: Extensive left upper lobe pneumonia is overall similar to prior exam. Underlying COPD. Reviewed, dictated and finalized at location . POWER SHEAR OPERATOR Impression: Extensive left upper lobe pneumonia is overall similar to prior exam. Underlying COPD.
--- NOTE | ~2022-08-29 | XR_ITS ---
Portable chest x-ray Comparison: 08/30/2022 Clinical History: Pneumonia Findings: Extensive left upper lobe consolidation is unchanged. Right lung remains clear. No pleural effusion. Cardiomediastinal silhouette is stable. Bones and soft tissues are unremarkable. Impression: Stable extensive left upper lobe pneumonia. Possible underlying COPD. Reviewed, dictated and finalized at [facility]. ER FLOATER Impression: Stable extensive left upper lobe pneumonia. Possible underlying COPD.
--- NOTE | ~2022-08-29 | XR_ITS ---
EXAMINATION: XR chest 1V portable DATE: 09/05/2022 09:04 INDICATION: Pneumonia. TECHNIQUE: A single frontal view of the chest was obtained. COMPARISON: Chest single view 09/02/2022, chest CT 08/30/2022 FINDINGS: There are airspace opacities in left mid and lower lung zones. The patient is rotated to he r right. There are lucencies in the lungs, consistent with emphysema. There is a small left pleural e ffusion. No pneumothorax. The heart size is normal. IMPRESSION: 1. Stable airspace opacities in left mid and lower lung zones, consistent with pneumonia. 2. Small left pleural effusion. 3. Emphysema. Reviewed, dictated and finalized at location A. ACE MECHANIC
--- NOTE | ~2022-08-29 | XR_ITS ---
Clinical Indication: Shortness of breath PA and lateral views of the chest: Comparison: 06/08/2022 Findings: There is extensive, patchy left upper lobe consolidation, compatible with pneumonia. Right lung clear. Probable COPD. Cardiomediastinal silhouette is within normal limits. Bones and soft tissu es are unremarkable. Impression: Extensive left upper lobe pneumonia. COPD. Reviewed, dictated and finalized at location M. S TENDER LONG GOODS Impression: Extensive left upper lobe pneumonia. COPD.
[2022-08-29 23:50] VITALS: O2SAT 81
[2022-08-29 23:57] VITALS: BP 96/54; PULSE 138; RESP 29; O2SAT 92
[2022-08-30] VITALS (41 sets, daily range): BP systolic 94–129; BP diastolic 64–75; PULSE 72–94; RESP 10–32; TEMP 36.4–36.6; O2SAT 90–100
[2022-08-30 00:16] LABS: Basophils Absolute Auto 0.2 K/mm3 (0.0-0.1); Basophils Percent Auto 0.4 % (0.2-1.2); Hematocrit 45.5 % (37.0-47.0); Immature Granulocyte Absolute 0.54 K/mm3 (0.00-0.031); Immature Granulocyte Percent A 1.5 % (0-0.5); Lymphocytes Percent Auto 4.8 % (18.3-44.2); Mean Corpuscular Hemoglobin 31.4 pg (26-34); Mean Corpuscular Volume 95.2 fl (80-100); Mean Platelet Volume 9.9 fl (7.4-10.4); Monocytes Absolute Auto 2.6 K/mm3 (0.1-0.6); Neutrophils Percent Auto 86.3 % (45.5-73.1); Platelet Count Result 355 k/mm3 (150-375); Red Blood Count 4.78 M/mm3 (4.2-5.4); Red Cell Distribution Width 12.6 % (11.5-14.5); White Blood Count 37.2 K/mm3 (4.5-10.0)
--- NOTE | 2022-08-30 00:17 | ECG_ITS ---
Measurements Intervals Christine Rate: 90 P: 81 AK: 99 QRS: -17 QRSD: 85 T: 86 QT: 383 QTc: 470 Interpretive Statements SINUS RHYTHM WITH SHORT AK INTERVAL PROBABLE INFERIOR MYOCARDIAL INFARCTION , OF INDETERMINATE AGE ABNORMAL ECG COMPARED TO ECG 08/30/2022 00:00:23 SINUS RHYTHM HAS REPLACED ATRIAL FIBRILLATION Electronically Signed On 08-30-2022 17:44:54 LINEWORKER by Ken Woo M.D.
--- NOTE | 2022-08-30 00:22 | ED.SOB ---
HPI - SOB/Dyspnea General Chief Complaint: Weakness <Moni Maldonado PA-C - Last Filed: 08/30/22 17:16> Stated Complaint: weakness, sob, hx of afib and high heart rate <Moni Maldonado PA-C - Last Filed: 08/30/22 17:16> Time Seen by Provider: 08/30/22 00:01 <Moni Maldonado PA-C - Last Filed: 08/30/22 17:16> Source: patient <Moni Maldonado PA-C - Last Filed: 08/30/22 17:16> Mode of arrival: ambulatory <KULDEEP Mary Last Filed: 08/30/22 17:16> Limitations: no limitations <Moni Maldonado PA-C - Last Filed: 08/30/22 17:16> History of Present Illness HPI Narrative: This is a 72-year-old female that presents to the emergency department for worsening dyspnea over the last week. Reports she finished a round of steroids prescribed by her engineering scientist with little relief. Today she had worsening shortness of breath and noted that her pulse oximeter was reading in the 80s. She has a dry cough. Possible subjective fevers. Reports mild tightness in her chest like she cannot get a deep breath. She has been using her nebulizer treatment every 4 hours. Reports history of atrial fibrillation and that she can feel herself going in and out of A. fib. Denies lower extremity edema. <Moni Maldonado PA-C - Last Filed: 08/30/22 17:16> Related Data Home Medications: Home Medications Medication Instructions Recorded Confirmed albuterol sulfate 2.5 mg/3 mL 2.5 mg continuous nebulization TID 01/16/22 08/30/22 (0.083 %) solution for nebulization PRN Shortness Of Breath diltiazem HCl 120 mg 120 mg PO DAILY 01/16/22 08/30/22 capsule,extended release 24 hr ergocalciferol (vitamin D2) 1,250 1,250 mcg PO [id number] 01/16/22 08/30/22 mcg (50,000 unit) capsule fluticasone fur. 100 mcg-umeclid 1 inh inhalation DAILY 01/16/22 08/30/22 62.5 mcg-vilant 25 mcg inhalat.powder (Trelegy Ellipta) levalbuterol tartrate 45 2 puff inhalation Q4H PRN 01/16/22 08/30/22 mcg/actuation aerosol inhaler Shortness Of Breath pravastatin 20 mg tablet 20 mg PO HS 01/16/22 08/30/22 rivaroxaban 15 mg tablet (Xarelto) 15 mg PO HS 01/16/22 08/30/22 magnesium oxide 400 mg (241.3 mg 400 mg PO DAILY 06/08/22 08/30/22 magnesium) tablet sotalol 80 mg tablet 40 mg PO DAILY 08/30/22 08/30/22 sotalol 80 mg tablet 80 mg PO HS 08/30/22 08/30/22 <Moni Maldonado PA-C - Last Filed: 08/30/22 17:16> Allergies/Adverse Reactions: Allergies Allergy/AdvReac Type Severity Reaction Status Date / Time morphine Allergy Unknown ITCHING Verified 08/30/22 08:40 doxycycline AdvReac Vomiting Verified 08/30/22 08:40 <Moni Maldonado PA-C - Last Filed: 08/30/22 17:16> Review of Systems Review of Systems: CONSTITUTIONAL: Reports fever ENT: Denies rhinorrhea, congestion, sore throat CARDIOVASCULAR: Reports chest pain and palpitations. Denies edema. RESPIRATORY: Reports cough and dyspnea. NEUROLOGIC: Reports generalized weakness. <Moni Maldonado PA-C - Last Filed: 08/30/22 17:16> All systems reviewed & are unremarkable except as noted in HPI and below <Moni Maldonado PA-C - Last Filed: 08/30/22 17:16> [facility] Past Medical History Medical History: Medical History (Updated 08/30/22 @ 10:42 by Derek Weston MD) Atrial fibrillation COPD (chronic obstructive pulmonary disease) PFT 11/02/2021: Severe obstructive airway disease with air trapping, lung hyperinflation and significant response to bronchodilators. Severely reduced diffusion capacity Glaucoma Hypercholesterolemia Hypertension Kidney stones Polycythemia secondary to hypoxia Pulmonary nodule 7 mm left lower lobe nodule increased in size compared to prior exam 2016 with recommended follow-up CT scan in March-April Patient stated she had a PET scan which was negative. She stated she was told that it was granulomatosis <Moni Maldonado PA-C - Last Filed: 08/30/22 17:16> Surgical History Surgical History: Surgical History (Revi
[2022-08-30] MEDS: methylPREDNISolone SOD SUCC 125 MG VIAL IV PUSH (00:28)
[2022-08-30 00:30] LABS: Alanine Aminotransferase 16 U/L (6-35); Alkaline Phosphatase 110 U/L (38-126); Anion Gap 5 mmol/L (8-16); Aspartate Amino Transferase 20 U/L (14-36); Bilirubin,Total 1.2 mg/dL (0.2-1.3); Blood Urea Nitrogen 22 mg/dL (7-17); Calcium 8.9 mg/dL (8.4-10.2); Carbon Dioxide 28 mmol/L (22-30); Chloride 99 mmol/L (98-107); Estimated CRCL calculation 34 ml/min; Estimated Glomerular Filt Rate > 60; Glucose 196 mg/dL (65-110); Potassium 3.8 mmol/L (3.4-5.0); Sodium 132 mmol/L (137-145)
[2022-08-30] MEDS: IPRATROPIUM BR 0.02% INH SOLN 0.5 MG/2.5 ML VIAL INHALATION ×2 (00:31→03:17)
[2022-08-30 00:36] LABS: INR 3.1; Prothrombin Time 30.8 Seconds (11.1-14.7)
[2022-08-30 00:37] LABS: Partial Thromboplastin Time 40.3 SECONDS (22.3-36.8)
[2022-08-30 00:41] LABS: Alveolar/Arterial O2 Gradient 88.5 mmHg; Base Excess ABG 4.5 mEq/l (+/-2.0); Carboxyhemoglobin 2.4 % THb (0-2.0); Fractional Inspired Oxygen 28 %; HCO3 ABG 28.2 mEq/l (22.0-26.0); Methemoglobin ABG 0.1 %THb (0-1.5); Oxygen Content ABG 19.6 %vol (16.0-22.0); Oxygen Saturation ABG 94.1 % (95.0-100.0); Oxyhemoglobin 90.8 % THb (90.0-100.0); PO2 ABG 65.1 mmHg (80.0-100.0); PO2 FiO2 Ratio Arterial Blood 2.33 %; Reduced Hemoglobin 6.7 %THb (0-5.0); Total Hemoglobin 15.4 g/dL (12.0-18.0); pH ABG 7.477 (7.350-7.450)
[2022-08-30 00:45] LABS: Device NASAL CANNULA; Modified Allen's Test Pass; Site Drawn RIGHT RADIAL
[2022-08-30 00:45] LABS: Troponin I 0.059 ng/mL (0.000-0.034)
[2022-08-30 01:00] LABS: D Dimer 1.63 ug/mL (<0.48)
[2022-08-30 01:24] LABS: Influenza A QL RT-PCR Negative (Negative); Influenza B QL RT-PCR Negative (Negative); SARS-CoV-2 RNA PCR Negative
[2022-08-30 01:47] LABS: Hemoglobin A1C 6.4 % (<5.7)
[2022-08-30 02:12] LABS: Lactic Acid Reflex 1.5 mmol/L (0.7-2.0)
--- NOTE | 2022-08-30 02:59 | PC.NURSE ---
Report given to mary SNELL
[2022-08-30 04:32] LABS: Troponin I 0.044 ng/mL (0.000-0.034)
[2022-08-30] MEDS: ALBUTEROL SULFATE NEB 2.5 MG/3 ML INH 5 MG INHALATION ×3 (09:13→22:47)
--- NOTE | 2022-08-30 09:56 | PM.CNPUL ---
Assessment and Plan Assessment and plan (1) Acute hypoxemic respiratory failure: Code(s): J96.01 - Acute respiratory failure with hypoxia Status: Acute (2) Pneumonia: Qualifiers: Laterality: left Lung location: unspecified part of lung Pneumonia type: due to unspecified organism Qualified Code(s): J18.9 - Pneumonia, unspecified organism Code(s): J18.9 - Pneumonia, unspecified organism Status: Acute Assessment and Plan: this 72-year-old female with a history of severe COPD presented with increasing shortness of breath cough and green sputum production related to extensive left upper lobe pneumonia. Patient has been treated with IV steroids for possible COPD exacerbation. She is currently on levofloxacin for pneumonia. Patient is currently on low-flow oxygen and does not look septic. She continues to have cough with green sputum production. Given her severe COPD, recent history of steroid treatment, documented Pseudomonas infection approximately 7 months ago, and also treatment with broad-spectrum antibiotics within the last 3 months the patient is at high risk for new Pseudomonas infection. the patient's Pseudomonas was sensitive to most antibiotics last January. Regarding lung nodules seen on previous and current chest CT she will need further follow-up on an outpatient basis. Plan: I would add cefepime to current antibiotic regimen. Screen for MRSA, sputum culture ordered. I would not treat the patient with IV steroids at this point, and would not start her on her maintenance triple inhaler bronchodilator as yet. continue with just nebulized short-acting bronchodilators for COPD. monitor renal function. consider DVT prophylaxis if patient does not resume her direct anticoagulant for atrial fibrillation. (3) Atrial fibrillation: Qualifiers: Atrial fibrillation type: paroxysmal Qualified Code(s): I48.0 - Paroxysmal atrial fibrillation Code(s): I48.91 - Unspecified atrial fibrillation Status: Acute (4) COPD exacerbation: Code(s): J44.1 - Chronic obstructive pulmonary disease with (acute) exacerbation Status: Acute (5) Severe protein-calorie malnutrition: Code(s): E43 - Unspecified severe protein-calorie malnutrition Status: Acute History of Present Illness History of Present Illness Consult date: 08/30/22 Chief complaint: pneumonia Narrative: This 72-year-old female seen in consultation for COPD and pneumonia. The patient has history of severe COPD FEV1 approximately 0.74 L or 38% predicted with evidence of lung hyperinflation and air trapping on pulmonary function testing done within the last year, chronically on triple inhaler, frequent hospitalizations for COPD exacerbation /pneumonia over the last year, last hospitalization approximately 3 months ago during which received broad-spectrum antibiotics, documented Pseudomonas infection approximately 7 months ago. The patient was in her usual state of health until approximately 7-10 days ago when she started having shortness of breath. She received oral steroid burst for 5 days with no improvement. Few days prior to this admission the patient started to have cough with green sputum production and felt feverish. She also noticed increasing shortness of breath. When evaluated in the emergency room she was found to have an extensive left upper lobe pneumonia and has received treatment with IV steroids; currently on IV levofloxacin. Patient stated she is feeling better but still coughing up phlegm. She has been on supplemental oxygen, 1 liter/minute but not having wheezing or hemoptysis. Patient used to smoke for many years but quit 2 years ago. Past medical history is also significant for hypertension, atrial fibrillation, history of small lung nodules which on last chest CT were stable. Review of Systems Review of Systems: Patient reports weight loss of approximately 20 lb over the last y
--- NOTE | 2022-08-30 10:41 | PM.IMHP ---
H&P: HPI History of Present Illness Date/Time: 08/30/22 10:41 Chief Complaint: This is a 72-year-old female that presents to the emergency department for worsening dyspnea over the last week.? Reports she finished a round of steroids prescribed by her design assembler with little relief.? Today she had worsening shortness of breath and noted that her pulse oximeter was reading in the 80s.? She has a dry cough.? Possible subjective fevers.? Reports mild tightness in her chest like she cannot get a deep breath.? She has been using her nebulizer treatment every 4 hours.? Reports history of atrial fibrillation and that she can feel herself going in and out of A. fib.? Denies lower extremity edema. [facility] Past Medical History Medical History (Updated 08/30/22 @ 10:42 by Derek Weston MD) Atrial fibrillation COPD (chronic obstructive pulmonary disease) PFT 11/02/2021: Severe obstructive airway disease with air trapping, lung hyperinflation and significant response to bronchodilators. Severely reduced diffusion capacity Glaucoma Hypercholesterolemia Hypertension Kidney stones Polycythemia secondary to hypoxia Pulmonary nodule 7 mm left lower lobe nodule increased in size compared to prior exam 2016 with recommended follow-up CT scan in March-April Patient stated she had a PET scan which was negative. She stated she was told that it was granulomatosis Surgical History Surgical History H/O cystoscopy History of 2 sections History of extraction of renal calculus Family History Family History Father Acute myocardial infarction Hypertension Mother Chronic obstructive pulmonary disease Sibling Chronic obstructive pulmonary disease Hypertension Pulmonary hypertension Social History Social History Social History: She reports that her daughter and 2 grand children recently moved in with her. 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 She denies any significant alcohol use or illicit substance use. Code status: Full code Surrogate decision maker: Diana (daughter) Smoking packs per day: 1 Smoking cigarettes per day: 20.0 Years smoked: 52 Smoking pack-years: 52.00 Smoking status: Current every day smoker Alcohol intake: never Substance use: never Substance use type: does not use Spiritual care concerns: No Meds Home Medications and Allergies Home Medications Medication Instructions Recorded Confirmed Type albuterol sulfate 2.5 mg/3 mL 2.5 mg continuous nebulization TID 01/16/22 08/30/22 History (0.083 %) solution for nebulization PRN Shortness Of Breath diltiazem HCl 120 mg 120 mg PO DAILY 01/16/22 08/30/22 History capsule,extended release 24 hr ergocalciferol (vitamin D2) 1,250 1,250 mcg PO [id number] 01/16/22 08/30/22 History mcg (50,000 unit) capsule fluticasone fur. 100 mcg-umeclid 1 inh inhalation DAILY 01/16/22 08/30/22 History 62.5 mcg-vilant 25 mcg inhalat.powder (Trelegy Ellipta) levalbuterol tartrate 45 2 puff inhalation Q4H PRN 01/16/22 08/30/22 History mcg/actuation aerosol inhaler Shortness Of Breath pravastatin 20 mg tablet 20 mg PO HS 01/16/22 08/30/22 History rivaroxaban 15 mg tablet (Xarelto) 15 mg PO HS 01/16/22 08/30/22 History magnesium oxide 400 mg (241.3 mg 400 mg PO DAILY 06/08/22 08/30/22 History magnesium) tablet mirabegron 25 mg tablet,extended 25 mg PO DAILY 30 days #30 tabs 06/13/22 08/30/22 Rx release 24 hr (Myrbetriq) sotalol 80 mg tablet 40 mg PO DAILY 08/30/22 08/30/22 History sotalol 80 mg tablet 80 mg PO HS 08/30/22 08/30/22 History Allergies Allergy/AdvReac Type Severity Reaction Status Date / Time morphine Allergy Unknown ITCHING Verified 08/30/22 08:40 doxycycline AdvReac Vomiting Verified 08/30/22 08:40 Vital Signs Vital
[2022-08-30] MEDS: SOTALOL HCL 40 MG TABLET PO (13:46)
--- NOTE | 2022-08-30 13:56 | ADMGEN ---
This patient, Sofi Zeng, was admitted to [facility] Surg Room 325-01. Patient/family oriented to hospital policies and general routines including ID bracelet, bed and alarms, visiting hours, pain management, procedures, bathroom and other care routines, personal items, smoking policy, room service/diet, and visiting hours. Information on how to activate the Rapid Response Team has been discussed. Patient/Family are encouraged to report perceived risks to care and to ask questions if they do not understand what they are told or what they should do.
[2022-08-30] MEDS: RIVAROXABAN 15 MG TABLET PO (16:34)
[2022-08-30] MEDS: PRAVASTATIN SODIUM 20 MG TABLET PO (22:06)
[2022-08-30] MEDS: SOTALOL HCL 80 MG TABLET PO (22:07)
--- NOTE | 2022-08-30 23:45 | ECG_ITS ---
Measurements Intervals [place] Rate: 132 P: PA: 0 QRS: 25 QRSD: 97 T: 69 QT: 332 QTc: 493 Interpretive Statements ATRIAL FIBRILLATION WITH RAPID VENTRICULAR RESPONSE BASELINE ARTIFACT LOW QRS VOLTAGE IN EXTREMITY LEADS PROBABLE INFERIOR MYOCARDIAL INFARCTION , PROBABLY OLD ABNORMAL ECG COMPARED TO ECG 06/08/2022 16:07:03 ATRIAL FIBRILLATION NOW PRESENT Electronically Signed On 08-30-2022 17:44:21 POWER SEWING MACHINE OPERATOR by Ken Woo M.D.
[2022-08-31] VITALS (20 sets, daily range): BP systolic 100–132; BP diastolic 59–74; PULSE 66–145; RESP 14–20; TEMP 36.2–37; O2SAT 90–96; BMI 14.7
[2022-08-31] MEDS: dilTIAZem HCl INJ 25 MG/5 ML VIAL 10 MG IV PUSH (00:19)
[2022-08-31] MEDS: LEVALBUTEROL NEB 1.25 MG/3 ML 0.63 MG INHALATION ×4 (04:10→20:52)
[2022-08-31 06:42] LABS: Basophils Absolute Auto 0.1 K/mm3 (0.0-0.1); Basophils Percent Auto 0.3 % (0.2-1.2); Hematocrit 40.8 % (37.0-47.0); Hemoglobin 13.5 g/dL (12.0-15.0); Immature Granulocyte Absolute 0.64 K/mm3 (0.00-0.031); Immature Granulocyte Percent A 1.5 % (0-0.5); Lymphocytes Absolute Auto 1.26 K/mm3 (0.9-3.2); Mean Corpuscular HGB Conc 33.1 g/dl (32-36); Mean Corpuscular Hemoglobin 31.3 pg (26-34); Mean Corpuscular Volume 94.7 fl (80-100); Mean Platelet Volume 10.4 fl (7.4-10.4); Monocytes Absolute Auto 1.7 K/mm3 (0.1-0.6); Neutrophils Absolute Auto 37.9 K/mm3 (1.3-6.7); Neutrophils Percent Auto 91.2 % (45.5-73.1); Platelet Count Result 377 k/mm3 (150-375); Red Blood Count 4.31 M/mm3 (4.2-5.4); Red Cell Distribution Width 12.4 % (11.5-14.5); White Blood Count 41.6 K/mm3 (4.5-10.0)
[2022-08-31 06:54] LABS: Alanine Aminotransferase 17 U/L (6-35); Albumin Level 2.8 g/dL (3.5-5.1); Alkaline Phosphatase 106 U/L (38-126); Anion Gap 4 mmol/L (8-16); Aspartate Amino Transferase 25 U/L (14-36); Bilirubin,Total 0.5 mg/dL (0.2-1.3); Blood Urea Nitrogen 28 mg/dL (7-17); Carbon Dioxide 30 mmol/L (22-30); Chloride 103 mmol/L (98-107); Estimated CRCL calculation 34 ml/min; Estimated Glomerular Filt Rate > 60; Glucose 155 mg/dL (65-110); Potassium 3.6 mmol/L (3.4-5.0); Sodium 137 mmol/L (137-145)
[2022-08-31] MEDS: MAGNESIUM OXIDE 400 MG TABLET PO (08:33)
[2022-08-31] MEDS: MIRABEGRON 25 MG ER TABLET PO (08:33)
[2022-08-31] MEDS: SOTALOL HCL 40 MG TABLET PO (08:33)
[2022-08-31] MEDS: ERGOCALCIFEROL 50,000 UNITS CAPSULE 50000 UNITS PO (08:33)
--- NOTE | 2022-08-31 09:12 | PM.PNPUL ---
Progress Note: A&P Assessment and Plan (1) Pneumonia: Qualifiers: Laterality: left Lung location: unspecified part of lung Pneumonia type: due to unspecified organism Qualified Code(s): J18.9 - Pneumonia, unspecified organism Code(s): J18.9 - Pneumonia, unspecified organism Status: Acute Assessment and Plan: This 72-year-old female with severe COPD, previous Pseudomonas in pneumonia in January of this year was hospitalized with extensive left upper lobe pneumonia. She has no evidence of COPD exacerbation. She has been on Levofloxacin and since yesterday on cefepime to cover possible new Pseudomonas infection. respiratory status over the last 24 hours. chest x-ray done today essentially unchanged. WBC higher than 40 K but patient does not look septic. Plan: Continue with current regimen while waiting sputum culture, screening for MRSA. (2) Acute hypoxemic respiratory failure: Code(s): J96.01 - Acute respiratory failure with hypoxia Status: Acute (3) Atrial fibrillation: Qualifiers: Atrial fibrillation type: paroxysmal Qualified Code(s): I48.0 - Paroxysmal atrial fibrillation Code(s): I48.91 - Unspecified atrial fibrillation Status: Acute (4) COPD exacerbation: Code(s): J44.1 - Chronic obstructive pulmonary disease with (acute) exacerbation Status: Acute (5) Diastolic heart failure: Code(s): I50.30 - Unspecified diastolic (congestive) heart failure Status: Acute (6) Severe protein-calorie malnutrition: Code(s): E43 - Unspecified severe protein-calorie malnutrition Status: Acute Subjective Date/time seen: 08/31/22 09:12 Patient went into AFib last night. She has no new respiratory symptoms this a.m.. Sitting up in bed, on room air, while having breakfast. Was able to cough up phlegm for sputum culture no fever chills no hemoptysis. Review of Systems Review of Systems: All system review is negative except as noted in HPI and below. Exam Narrative: GENERAL APPEARANCE: Well developed, emaciated, alert and cooperative, and appears to be in mild respiratory distress while on supplemental oxygen via nasal cannula. SKIN: Inspection of the skin reveals no rashes, ulcerations or petechiae. HEENT: Sclerae anicteric and conjunctivae pink and moist. Extraocular movements were intact and pupils were equal, round. The oral mucosa, hard and soft palate, tongue and posterior pharynx were normal. NECK: Supple. There was no thyroid enlargement, and no tenderness, or masses were felt. CHEST: increased AP diameter and normal contour without any kyphoscoliosis. LUNGS: Auscultation of the lungs revealed distant breath sounds bilaterally with crackles in left upper chest anteriorly CARDIAC: There was a regular rate and rhythm without any murmurs, gallops, rubs. ABDOMEN: Soft and nontender with normal bowel sounds. There was no organomegaly. LYMPH NODES: No lymphadenopathy was appreciated in the neck. EXTREMITIES: No cyanosis, clubbing or edema. NEUROLOGIC: Alert and oriented x 3. Normal affect. Objective Data Vital Signs Vital Signs: Vital Signs - 24 hr 08/30/22 09:13 08/30/22 09:18 08/30/22 09:29 Temperature Pulse Rate Respiratory Rate 20 18 Blood Pressure Pulse Oximetry 94 Oxygen Delivery Nasal Cannula Oxygen Flow Rate 1 08/30/22 14:34 08/30/22 12:15 08/30/22 14:48 Temperature Pulse Rate 85 84 Respiratory Rate 20 20 Blood Pressure Pulse Oximetry 91 Oxygen Delivery Room Air Oxygen Flow Rate 08/30/22 13:00 08/30/22 12:00 08/30/22 16:00 Temperature 36.4 C Pulse Rate 89 94 75 Respiratory Rate 16 Blood Pressure 129/70 Pulse Oximetry 93 Oxygen Delivery Oxygen Flow Rate 08/30/22 16:00 08/30/22 22:07 08/30/22 20:00 Temperature 36.4 C L 36.6 C Pulse Rate 82 84 80 Respiratory Rate 18 12 Blood Pressure 124/75 117/70 Pulse Oximetry 91 91 Oxygen Delivery
[2022-08-31 09:47] LABS: CRP 23.9 mg/dL (<1.0)
--- NOTE | 2022-08-31 11:34 | PM.IMPN ---
Progress Note: A&P Assessment and Plan (1) Pneumonia: Qualifiers: Laterality: left Lung location: unspecified part of lung Pneumonia type: due to unspecified organism Qualified Code(s): J18.9 - Pneumonia, unspecified organism Code(s): J18.9 - Pneumonia, unspecified organism Status: Acute Assessment and Plan: IV antibiotics Appreciate pulmonary input (2) Atrial fibrillation: Qualifiers: Atrial fibrillation type: paroxysmal Qualified Code(s): I48.0 - Paroxysmal atrial fibrillation Code(s): I48.91 - Unspecified atrial fibrillation Status: Acute Assessment and Plan: Rates controlled. Continue home meds (3) Hypercholesterolemia: Code(s): E78.00 - Pure hypercholesterolemia, unspecified Status: Acute (4) Hypertension: Code(s): I10 - Essential (primary) hypertension Status: Acute (5) Diastolic heart failure: Code(s): I50.30 - Unspecified diastolic (congestive) heart failure Status: Acute Assessment and Plan: Compensated (6) COPD (chronic obstructive pulmonary disease): Code(s): J44.9 - Chronic obstructive pulmonary disease, unspecified Status: Acute Assessment and Plan: Monitor. Most of her pulmonary issues are from pneumonia. Subjective Date/time seen: 08/31/22 11:34 Breathing is better. Exam Narrative: GENERAL APPEARANCE: Well developed, emaciated, alert and cooperative, and appears to be in mild respiratory distress while on supplemental oxygen via nasal cannula. SKIN: Inspection of the skin reveals no rashes, ulcerations or petechiae. HEENT: Sclerae anicteric and conjunctivae pink and moist. Extraocular movements were intact and pupils were equal, round. The oral mucosa, hard and soft palate, tongue and posterior pharynx were normal. NECK: Supple. There was no thyroid enlargement, and no tenderness, or masses were felt. CHEST: increased AP diameter and normal contour without any kyphoscoliosis. LUNGS: Auscultation of the lungs revealed distant breath sounds bilaterally with crackles in left upper chest anteriorly CARDIAC: There was a regular rate and rhythm without any murmurs, gallops, rubs. ABDOMEN: Soft and nontender with normal bowel sounds. There was no organomegaly. LYMPH NODES: No lymphadenopathy was appreciated in the neck. EXTREMITIES: No cyanosis, clubbing or edema. NEUROLOGIC: Alert and oriented x 3. Normal affect. Objective Data Vital Signs Vital Signs: Vital Signs - 24 hr 08/30/22 14:34 08/30/22 12:15 08/30/22 14:48 Temperature Pulse Rate 85 84 Respiratory Rate 20 20 Blood Pressure Pulse Oximetry 91 Oxygen Delivery Room Air 08/30/22 13:00 08/30/22 12:00 08/30/22 16:00 Temperature 97.6 F Pulse Rate 89 94 75 Respiratory Rate 16 Blood Pressure 129/70 Pulse Oximetry 93 Oxygen Delivery 08/30/22 16:00 08/30/22 22:07 08/30/22 20:00 Temperature 97.5 F L 97.8 F Pulse Rate 82 84 80 Respiratory Rate 18 12 Blood Pressure 124/75 117/70 Pulse Oximetry 91 91 Oxygen Delivery 08/30/22 22:47 08/30/22 22:52 08/30/22 23:02 Temperature Pulse Rate 85 86 Respiratory Rate 20 20 Blood Pressure Pulse Oximetry 90 Oxygen Delivery Room Air 08/31/22 00:00 08/31/22 04:10 08/31/22 04:55 Temperature 97.7 F Pulse Rate 136 H 66 75 Respiratory Rate 16 20 20 Blood Pressure 116/65 Pulse Oximetry 90 Oxygen Delivery 08/31/22 04:00 08/30/22 20:00 08/31/22 00:00 Temperature 98.3 F Pulse Rate 130 H 72 145 H Respiratory Rate 16 Blood Pressure 100/68 Pulse Oximetry 94 Oxygen Delivery 08/31/22 04:00 08/31/22 08:33 08/31/22 09:35 Temperature Pulse Rate 120 H 132 H 79 Respiratory Rate 18 Blood Pressure Pulse Oximetry Oxygen Delivery 08/31/22 09:44 08/31/22 10:23 Temperature 98 F Pulse Rate 73 Respiratory Rate 16 Blood Pressure 116/66 Pulse Oximetry 91 90 Oxygen Delivery
--- NOTE | 2022-08-31 14:37 | PCPTNOTE ---
Attempted PT evaluation, pt refused stating she was too tired. RN aware. Will Follow.
[2022-08-31] MEDS: RIVAROXABAN 15 MG TABLET PO (17:32)
[2022-08-31] MEDS: LEVALBUTEROL HFA (*SP) 15 GM INHALER 2 PUFF INHALATION ×2 (18:51→22:16)
[2022-08-31] MEDS: SOTALOL HCL 80 MG TABLET PO (20:11)
[2022-08-31] MEDS: PRAVASTATIN SODIUM 20 MG TABLET PO (20:11)
[2022-09-01] VITALS (20 sets, daily range): BP systolic 119–136; BP diastolic 60–75; PULSE 61–98; RESP 18–24; TEMP 36.1–36.7; O2SAT 91–94
[2022-09-01] MEDS: LEVALBUTEROL HFA (*SP) 15 GM INHALER 2 PUFF INHALATION ×2 (02:16→05:53)
[2022-09-01] MEDS: LEVALBUTEROL NEB 1.25 MG/3 ML 0.63 MG INHALATION ×5 (02:36→20:24)
[2022-09-01] MEDS: FLUTICASONE/UMECLIDIN/VILANTER 100-62.5-25 MCG ELLIPTA 1 PUFF INHALATION (08:01)
[2022-09-01 09:16] LABS: Basophils Absolute Auto 0.1 K/mm3 (0.0-0.1); Basophils Percent Auto 0.3 % (0.2-1.2); Hematocrit 41.7 % (37.0-47.0); Hemoglobin 13.4 g/dL (12.0-15.0); Immature Granulocyte Absolute 0.22 K/mm3 (0.00-0.031); Immature Granulocyte Percent A 0.9 % (0-0.5); Lymphocytes Absolute Auto 0.86 K/mm3 (0.9-3.2); Lymphocytes Percent Auto 3.4 % (18.3-44.2); Mean Corpuscular HGB Conc 32.1 g/dl (32-36); Mean Corpuscular Hemoglobin 31.4 pg (26-34); Mean Corpuscular Volume 97.7 fl (80-100); Mean Platelet Volume 9.8 fl (7.4-10.4); Monocytes Absolute Auto 1.7 K/mm3 (0.1-0.6); Monocytes Percent Auto 6.6 % (2.6-8.5); Neutrophils Absolute Auto 22.8 K/mm3 (1.3-6.7); Neutrophils Percent Auto 88.8 % (45.5-73.1); Platelet Count Result 399 k/mm3 (150-375); Red Blood Count 4.27 M/mm3 (4.2-5.4); Red Cell Distribution Width 12.9 % (11.5-14.5); White Blood Count 25.6 K/mm3 (4.5-10.0)
[2022-09-01] MEDS: MAGNESIUM OXIDE 400 MG TABLET PO (10:25)
[2022-09-01] MEDS: MIRABEGRON 25 MG ER TABLET PO (10:25)
[2022-09-01] MEDS: SOTALOL HCL 40 MG TABLET PO (10:25)
--- NOTE | 2022-09-01 11:06 | PM.PNPUL ---
Progress Note: A&P Assessment and Plan (1) Pneumonia: Qualifiers: Laterality: left Lung location: unspecified part of lung Pneumonia type: due to unspecified organism Qualified Code(s): J18.9 - Pneumonia, unspecified organism Code(s): J18.9 - Pneumonia, unspecified organism Status: Acute Assessment and Plan: This 72-year-old female with severe COPD, previous Pseudomonas pneumonia in January of this year was hospitalized with extensive left upper lobe pneumonia. She has no evidence of COPD exacerbation. She has been on Levofloxacin and since yesterday on cefepime to cover possible new Pseudomonas infection. respiratory status over the last 24 hours has been stable. patient complains of some shortness of breath especially at night which is probably related to anxiety. Physical exam she has no evidence of wheezing. WBC trending down. Plan: Continue with current regimen while waiting sputum culture, screening for MRSA. continue with nebulized short-acting bronchodilator q.4 hours p.r.n., may consider anti anxiety medication p.r.n. especially at p.m.. The case was discussed with the hospitalist. (2) Acute hypoxemic respiratory failure: Code(s): J96.01 - Acute respiratory failure with hypoxia Status: Acute (3) Atrial fibrillation: Qualifiers: Atrial fibrillation type: paroxysmal Qualified Code(s): I48.0 - Paroxysmal atrial fibrillation Code(s): I48.91 - Unspecified atrial fibrillation Status: Acute (4) COPD exacerbation: Code(s): J44.1 - Chronic obstructive pulmonary disease with (acute) exacerbation Status: Acute (5) Diastolic heart failure: Code(s): I50.30 - Unspecified diastolic (congestive) heart failure Status: Acute (6) Severe protein-calorie malnutrition: Code(s): E43 - Unspecified severe protein-calorie malnutrition Status: Acute Subjective Date/time seen: 09/01/22 11:06 patient had some shortness of breath last night. No shortness of breath today. She is currently on supplemental oxygen via nasal cannula. No coughing, no wheezing Review of Systems Review of Systems: All system review is negative except as noted in HPI and below. Exam Narrative: GENERAL APPEARANCE: Well developed, emaciated, alert and cooperative, and appears to be in mild respiratory distress while on supplemental oxygen via nasal cannula. SKIN: Inspection of the skin reveals no rashes, ulcerations or petechiae. HEENT: Sclerae anicteric and conjunctivae pink and moist. Extraocular movements were intact and pupils were equal, round. The oral mucosa, hard and soft palate, tongue and posterior pharynx were normal. NECK: Supple. There was no thyroid enlargement, and no tenderness, or masses were felt. CHEST: increased AP diameter and normal contour without any kyphoscoliosis. LUNGS: Auscultation of the lungs revealed distant breath sounds bilaterally with crackles in left upper chest anteriorly CARDIAC: There was a regular rate and rhythm without any murmurs, gallops, rubs. ABDOMEN: Soft and nontender with normal bowel sounds. There was no organomegaly. LYMPH NODES: No lymphadenopathy was appreciated in the neck. EXTREMITIES: No cyanosis, clubbing or edema. NEUROLOGIC: Alert and oriented x 3. Normal affect. Objective Data Vital Signs Vital Signs: Vital Signs - 24 hr 08/31/22 13:47 08/31/22 13:56 08/31/22 12:00 Temperature Pulse Rate 81 80 80 Respiratory Rate 18 18 Blood Pressure Pulse Oximetry Oxygen Delivery Oxygen Flow Rate 08/31/22 14:00 08/31/22 18:00 08/31/22 16:00 Temperature 37.0 C 36.4 C L Pulse Rate 81 88 81 Respiratory Rate 16 14 Blood Pressure 120/59 L 132/61 Pulse Oximetry 92 91 Oxygen Delivery Oxygen Flow Rate 08/31/22 20:11 08/31/22 20:00 08/31/22 20:45 Temperature 36.5 C Pulse Rate 78 78 Respiratory Rate 18 Blood Pressure 130/66 Pulse Oximetry 95 93 Oxygen
[2022-09-01] MEDS: ALPRAZolam (*CRX) 0.25 MG TABLET PO ×2 (12:42→20:42)
--- NOTE | 2022-09-01 13:08 | PM.IMPN ---
Progress Note: A&P Assessment and Plan (1) Pneumonia: Qualifiers: Laterality: left Lung location: unspecified part of lung Pneumonia type: due to unspecified organism Qualified Code(s): J18.9 - Pneumonia, unspecified organism Code(s): J18.9 - Pneumonia, unspecified organism Status: Acute Assessment and Plan: IV antibiotics Appreciate pulmonary input (2) Atrial fibrillation: Qualifiers: Atrial fibrillation type: paroxysmal Qualified Code(s): I48.0 - Paroxysmal atrial fibrillation Code(s): I48.91 - Unspecified atrial fibrillation Status: Acute Assessment and Plan: Rates controlled. Continue home meds (3) Hypercholesterolemia: Code(s): E78.00 - Pure hypercholesterolemia, unspecified Status: Acute (4) Hypertension: Code(s): I10 - Essential (primary) hypertension Status: Acute (5) Diastolic heart failure: Code(s): I50.30 - Unspecified diastolic (congestive) heart failure Status: Acute Assessment and Plan: Compensated (6) COPD (chronic obstructive pulmonary disease): Code(s): J44.9 - Chronic obstructive pulmonary disease, unspecified Status: Acute Assessment and Plan: Monitor. Most of her pulmonary issues are from pneumonia. Subjective Date/time seen: 09/01/22 13:08 no Complaints Exam Narrative: GENERAL APPEARANCE: Well developed, emaciated, alert and cooperative, and appears to be in mild respiratory distress while on supplemental oxygen via nasal cannula. SKIN: Inspection of the skin reveals no rashes, ulcerations or petechiae. HEENT: Sclerae anicteric and conjunctivae pink and moist. Extraocular movements were intact and pupils were equal, round. The oral mucosa, hard and soft palate, tongue and posterior pharynx were normal. NECK: Supple. There was no thyroid enlargement, and no tenderness, or masses were felt. CHEST: increased AP diameter and normal contour without any kyphoscoliosis. LUNGS: Auscultation of the lungs revealed distant breath sounds bilaterally with crackles in left upper chest anteriorly CARDIAC: There was a regular rate and rhythm without any murmurs, gallops, rubs. ABDOMEN: Soft and nontender with normal bowel sounds. There was no organomegaly. LYMPH NODES: No lymphadenopathy was appreciated in the neck. EXTREMITIES: No cyanosis, clubbing or edema. NEUROLOGIC: Alert and oriented x 3. Normal affect. Objective Data Vital Signs Vital Signs: Vital Signs - 24 hr 1228/22 13:47 08/31/22 13:56 08/31/22 14:00 Temperature 98.6 F Pulse Rate 81 80 81 Respiratory Rate 18 18 16 Blood Pressure 120/59 L Pulse Oximetry 92 Oxygen Delivery Oxygen Flow Rate Fraction of Inspired Oxygen 08/31/22 18:00 08/31/22 16:00 08/31/22 20:11 Temperature 97.5 F L Pulse Rate 88 81 78 Respiratory Rate 14 Blood Pressure 132/61 Pulse Oximetry 91 Oxygen Delivery Oxygen Flow Rate Fraction of Inspired Oxygen 08/31/22 20:00 08/31/22 20:45 08/31/22 20:45 Temperature 97.7 F Pulse Rate 78 86 Respiratory Rate 18 18 Blood Pressure 130/66 Pulse Oximetry 95 93 Oxygen Delivery Nasal Cannula Oxygen Flow Rate 2 Fraction of Inspired Oxygen 08/31/22 20:54 08/31/22 20:54 08/31/22 20:00 Temperature Pulse Rate 81 Respiratory Rate 18 Blood Pressure Pulse Oximetry 93 95 Oxygen Delivery Nasal Cannula Oxygen Flow Rate 2 Fraction of Inspired Oxygen 08/31/22 23:41 08/31/22 20:00 09/01/22 00:00 Temperature 97.2 F L Pulse Rate 76 82 75 Respiratory Rate 16 Blood Pressure 112/74 Pulse Oximetry 96 Oxygen Delivery Oxygen Flow Rate Fraction of Inspired Oxygen 09/01/22 02:35 09/01/22 02:43 09/01/22 04:00 Temperature 97.7 F Pulse Rate 61 76 80 Respiratory Rate 18 18 18 Blood Pressure 120/60 Pulse Oximetry 94 Oxygen Delivery Oxygen Flow Rate Fraction of Inspired Oxygen 09/01/22
--- NOTE | 2022-09-01 13:27 | PCPTNOTE ---
Attempted PT evaluation, pt refused due to fatigue and weakness. RN aware. Will follow.
[2022-09-01] MEDS: RIVAROXABAN 15 MG TABLET PO (18:44)
[2022-09-01] MEDS: SOTALOL HCL 80 MG TABLET PO (20:42)
[2022-09-01] MEDS: PRAVASTATIN SODIUM 20 MG TABLET PO (20:42)
[2022-09-02] VITALS (16 sets, daily range): BP systolic 105–152; BP diastolic 53–70; PULSE 63–91; RESP 12–18; TEMP 36.4–36.9; O2SAT 91–98
[2022-09-02] MEDS: LEVALBUTEROL NEB 1.25 MG/3 ML 0.63 MG INHALATION ×6 (01:26→20:59)
[2022-09-02 08:53] LABS: Basophils Absolute Auto 0.1 K/mm3 (0.0-0.1); Basophils Percent Auto 0.4 % (0.2-1.2); Hematocrit 44.7 % (37.0-47.0); Hemoglobin 13.5 g/dL (12.0-15.0); Immature Granulocyte Absolute 0.23 K/mm3 (0.00-0.031); Immature Granulocyte Percent A 0.8 % (0-0.5); Lymphocytes Percent Auto 3.2 % (18.3-44.2); Mean Corpuscular HGB Conc 30.2 g/dl (32-36); Mean Corpuscular Volume 102.5 fl (80-100); Mean Platelet Volume 9.9 fl (7.4-10.4); Monocytes Absolute Auto 1.3 K/mm3 (0.1-0.6); Monocytes Percent Auto 4.6 % (2.6-8.5); Neutrophils Absolute Auto 25.9 K/mm3 (1.3-6.7); Platelet Count Result 284 k/mm3 (150-375); Red Blood Count 4.36 M/mm3 (4.2-5.4); Red Cell Distribution Width 12.6 % (11.5-14.5); White Blood Count 28.5 K/mm3 (4.5-10.0)
[2022-09-02] MEDS: MIRABEGRON 25 MG ER TABLET PO (09:32)
[2022-09-02] MEDS: SOTALOL HCL 40 MG TABLET PO (09:32)
[2022-09-02] MEDS: MAGNESIUM OXIDE 400 MG TABLET PO (09:32)
--- NOTE | 2022-09-02 09:54 | PCPTNOTE ---
Addendum entered by Renetta Casas, PT 09/02/22 11:00: Spoke with hospitalist, OK to discharge from PT due to refusing. Original Note: Attempted PT evaluation, pt refused stating she is waiting for IV Tylenol for pain. RN aware. Attempted to contact hospitalist, but did not answer.
--- NOTE | 2022-09-02 10:33 | PM.PNPUL ---
Progress Note: A&P Assessment and Plan (1) Pneumonia: Qualifiers: Laterality: left Lung location: unspecified part of lung Pneumonia type: due to unspecified organism Qualified Code(s): J18.9 - Pneumonia, unspecified organism Code(s): J18.9 - Pneumonia, unspecified organism Status: Acute Assessment and Plan: This 72-year-old female with severe COPD, previous Pseudomonas pneumonia in January of this year was hospitalized with extensive left upper lobe pneumonia. She has no evidence of COPD exacerbation. She has been on Levofloxacin and also on cefepime to cover possible new Pseudomonas infection. Patient complaining of fatigue but no change in shortness of breath. Afebrile, mild nonproductive cough, has no wheezing. She still on supplemental oxygen 2 liters/minute. Plan: In view of persistent leukocytosis I have discontinued cefepime and started the patient on imipenem IV. Continue with levofloxacin. Stat chest x-ray today. (2) Acute hypoxemic respiratory failure: Code(s): J96.01 - Acute respiratory failure with hypoxia Status: Acute (3) Atrial fibrillation: Qualifiers: Atrial fibrillation type: paroxysmal Qualified Code(s): I48.0 - Paroxysmal atrial fibrillation Code(s): I48.91 - Unspecified atrial fibrillation Status: Acute (4) COPD exacerbation: Code(s): J44.1 - Chronic obstructive pulmonary disease with (acute) exacerbation Status: Acute (5) Diastolic heart failure: Code(s): I50.30 - Unspecified diastolic (congestive) heart failure Status: Acute (6) Severe protein-calorie malnutrition: Code(s): E43 - Unspecified severe protein-calorie malnutrition Status: Acute Subjective Date/time seen: 09/02/22 10:33 patient has no new respiratory symptoms. She continues to feel tired. Shortness of breath unchanged. Mild cough no sputum production. has not been able to provide sputum for culture. Still with significant leukocytosis despite treatment with 2 antibiotics. MRSA screening negative. Review of Systems Review of Systems: All system review is negative except as noted in HPI and below. Exam Narrative: GENERAL APPEARANCE: Well developed, emaciated, alert and cooperative, and appears to be in mild respiratory distress while on supplemental oxygen via nasal cannula. SKIN: Inspection of the skin reveals no rashes, ulcerations or petechiae. HEENT: Sclerae anicteric and conjunctivae pink and moist. Extraocular movements were intact and pupils were equal, round. The oral mucosa, hard and soft palate, tongue and posterior pharynx were normal. NECK: Supple. There was no thyroid enlargement, and no tenderness, or masses were felt. CHEST: increased AP diameter and normal contour without any kyphoscoliosis. LUNGS: Auscultation of the lungs revealed distant breath sounds bilaterally with crackles in left upper chest anteriorly CARDIAC: There was a regular rate and rhythm without any murmurs, gallops, rubs. ABDOMEN: Soft and nontender with normal bowel sounds. There was no organomegaly. LYMPH NODES: No lymphadenopathy was appreciated in the neck. EXTREMITIES: No cyanosis, clubbing or edema. NEUROLOGIC: Alert and oriented x 3. Normal affect. Objective Data Vital Signs Vital Signs: Vital Signs - 24 hr 09/01/22 11:14 09/01/22 12:00 09/01/22 12:08 Temperature Pulse Rate 87 84 84 Respiratory Rate 21 H 21 H Blood Pressure Pulse Oximetry 92 Oxygen Delivery Nasal Cannula Oxygen Flow Rate 2 Fraction of Inspired Oxygen 28 09/01/22 12:00 09/01/22 14:00 09/01/22 16:43 Temperature 36.1 C L 36.2 C L Pulse Rate 78 81 84 Respiratory Rate 20 20 24 H Blood Pressure 121/75 126/68 Pulse Oximetry 93 91 Oxygen Delivery Oxygen Flow Rate Fraction of Inspired Oxygen 09/01/22 16:55 09/01/22 12:00 09/01/22 16:00 Temperature Pulse Rate 80 83 79 Respiratory Rate 21 H Blood Pressure
--- NOTE | 2022-09-02 13:41 | PM.IMPN ---
Progress Note: A&P Assessment and Plan (1) Pneumonia: Qualifiers: Laterality: left Lung location: unspecified part of lung Pneumonia type: due to unspecified organism Qualified Code(s): J18.9 - Pneumonia, unspecified organism Code(s): J18.9 - Pneumonia, unspecified organism Status: Acute Assessment and Plan: IV antibiotics Appreciate pulmonary input (2) Atrial fibrillation: Qualifiers: Atrial fibrillation type: paroxysmal Qualified Code(s): I48.0 - Paroxysmal atrial fibrillation Code(s): I48.91 - Unspecified atrial fibrillation Status: Acute Assessment and Plan: Rates controlled. Continue home meds (3) Hypercholesterolemia: Code(s): E78.00 - Pure hypercholesterolemia, unspecified Status: Acute (4) Hypertension: Code(s): I10 - Essential (primary) hypertension Status: Acute (5) Diastolic heart failure: Code(s): I50.30 - Unspecified diastolic (congestive) heart failure Status: Acute Assessment and Plan: Compensated (6) COPD (chronic obstructive pulmonary disease): Code(s): J44.9 - Chronic obstructive pulmonary disease, unspecified Status: Acute Assessment and Plan: Monitor. Most of her pulmonary issues are from pneumonia. Subjective Date/time seen: 09/02/22 13:41 No complaints Exam Narrative: GENERAL APPEARANCE: Well developed, emaciated, alert and cooperative, and appears to be in mild respiratory distress while on supplemental oxygen via nasal cannula. SKIN: Inspection of the skin reveals no rashes, ulcerations or petechiae. HEENT: Sclerae anicteric and conjunctivae pink and moist. Extraocular movements were intact and pupils were equal, round. The oral mucosa, hard and soft palate, tongue and posterior pharynx were normal. NECK: Supple. There was no thyroid enlargement, and no tenderness, or masses were felt. CHEST: increased AP diameter and normal contour without any kyphoscoliosis. LUNGS: Auscultation of the lungs revealed distant breath sounds bilaterally with crackles in left upper chest anteriorly CARDIAC: There was a regular rate and rhythm without any murmurs, gallops, rubs. ABDOMEN: Soft and nontender with normal bowel sounds. There was no organomegaly. LYMPH NODES: No lymphadenopathy was appreciated in the neck. EXTREMITIES: No cyanosis, clubbing or edema. NEUROLOGIC: Alert and oriented x 3. Normal affect. Objective Data Vital Signs Vital Signs: Vital Signs - 24 hr 09/01/22 14:00 09/01/22 16:43 09/01/22 16:55 Temperature 97.1 F L Pulse Rate 81 84 80 Respiratory Rate 20 24 H 21 H Blood Pressure 126/68 Pulse Oximetry 91 Oxygen Delivery Oxygen Flow Rate 09/01/22 16:00 09/01/22 20:25 09/01/22 20:42 Temperature Pulse Rate 79 98 Respiratory Rate Blood Pressure Pulse Oximetry 91 Oxygen Delivery Nasal Cannula Oxygen Flow Rate 2 09/01/22 20:00 09/01/22 20:00 09/02/22 00:00 Temperature 98.0 F 97.6 F Pulse Rate 90 68 Respiratory Rate 22 H 12 Blood Pressure 136/71 105/70 Pulse Oximetry 91 93 98 Oxygen Delivery Nasal Cannula Oxygen Flow Rate 2 09/01/22 20:25 09/01/22 20:33 09/02/22 01:28 Temperature Pulse Rate 89 84 65 Respiratory Rate 20 20 18 Blood Pressure Pulse Oximetry Oxygen Delivery Oxygen Flow Rate 09/01/22 21:00 09/02/22 00:00 09/02/22 04:00 Temperature Pulse Rate 92 71 73 Respiratory Rate Blood Pressure Pulse Oximetry Oxygen Delivery Oxygen Flow Rate 09/02/22 04:42 09/02/22 01:40 09/02/22 04:00 Temperature 97.7 F Pulse Rate 73 63 72 Respiratory Rate 18 18 12 Blood Pressure 121/66 Pulse Oximetry 92 Oxygen Delivery Oxygen Flow Rate 09/02/22 08:15 09/02/22 08:15 09/02/22 08:00 Temperature 97.5 F L Pulse Rate 87 87 84 Respiratory Rate 18 16 Blood Pressure 152/53 H Pulse Oximetry 92 91 Oxygen Delivery Nasal Cannula Oxygen Flow
[2022-09-02] MEDS: VANCOMYCIN HCL 500 MG in DEXTROSE 5% 100 ML IVPB (13:48)
[2022-09-02 19:09] LABS: Legionella pneumophila Ag Ur Not Detected (Not Detected)
[2022-09-02] MEDS: SOTALOL HCL 80 MG TABLET PO (20:21)
[2022-09-02] MEDS: PRAVASTATIN SODIUM 20 MG TABLET PO (20:21)
[2022-09-02] MEDS: RIVAROXABAN 15 MG TABLET PO (20:22)
[2022-09-02] MEDS: ALPRAZolam (*CRX) 0.25 MG TABLET PO (20:28)
[2022-09-03] VITALS (18 sets, daily range): BP systolic 108–138; BP diastolic 60–70; PULSE 69–83; RESP 14–18; TEMP 36.1–36.8; O2SAT 89–99
[2022-09-03] MEDS: LEVALBUTEROL NEB 1.25 MG/3 ML 0.63 MG INHALATION ×5 (04:09→21:04)
[2022-09-03] MEDS: MAGNESIUM OXIDE 400 MG TABLET PO (08:02)
[2022-09-03] MEDS: SOTALOL HCL 40 MG TABLET PO (08:02)
[2022-09-03] MEDS: MIRABEGRON 25 MG ER TABLET PO (08:02)
[2022-09-03] MEDS: FLUTICASONE/UMECLIDIN/VILANTER 100-62.5-25 MCG ELLIPTA 1 PUFF INHALATION (09:15)
[2022-09-03 09:22] LABS: Basophils Percent Auto 0.2 % (0.2-1.2); Eosinophils Absolute Auto 0.1 K/mm3 (0-0.3); Eosinophils Percent Auto 0.2 % (0-4.4); Hematocrit 40.3 % (37.0-47.0); Hemoglobin 12.7 g/dL (12.0-15.0); Immature Granulocyte Absolute 0.21 K/mm3 (0.00-0.031); Immature Granulocyte Percent A 0.9 % (0-0.5); Lymphocytes Absolute Auto 0.93 K/mm3 (0.9-3.2); Lymphocytes Percent Auto 3.9 % (18.3-44.2); Mean Corpuscular HGB Conc 31.5 g/dl (32-36); Mean Corpuscular Hemoglobin 31.3 pg (26-34); Mean Corpuscular Volume 99.3 fl (80-100); Monocytes Absolute Auto 0.8 K/mm3 (0.1-0.6); Monocytes Percent Auto 3.3 % (2.6-8.5); Neutrophils Absolute Auto 21.6 K/mm3 (1.3-6.7); Neutrophils Percent Auto 91.5 % (45.5-73.1); Platelet Count Result 360 k/mm3 (150-375); Red Blood Count 4.06 M/mm3 (4.2-5.4); Red Cell Distribution Width 12.7 % (11.5-14.5); White Blood Count 23.6 K/mm3 (4.5-10.0)
--- NOTE | 2022-09-03 12:52 | PM.IMPN ---
Progress Note: A&P Assessment and Plan (1) Pneumonia: Qualifiers: Laterality: left Lung location: unspecified part of lung Pneumonia type: due to unspecified organism Qualified Code(s): J18.9 - Pneumonia, unspecified organism Code(s): J18.9 - Pneumonia, unspecified organism Status: Acute Assessment and Plan: IV antibiotics Appreciate pulmonary input (2) Atrial fibrillation: Qualifiers: Atrial fibrillation type: paroxysmal Qualified Code(s): I48.0 - Paroxysmal atrial fibrillation Code(s): I48.91 - Unspecified atrial fibrillation Status: Acute Assessment and Plan: Rates controlled. Continue home meds (3) Hypercholesterolemia: Code(s): E78.00 - Pure hypercholesterolemia, unspecified Status: Acute (4) Hypertension: Code(s): I10 - Essential (primary) hypertension Status: Acute (5) Diastolic heart failure: Code(s): I50.30 - Unspecified diastolic (congestive) heart failure Status: Acute Assessment and Plan: Compensated (6) COPD (chronic obstructive pulmonary disease): Code(s): J44.9 - Chronic obstructive pulmonary disease, unspecified Status: Acute Assessment and Plan: Monitor. Most of her pulmonary issues are from pneumonia. Subjective Date/time seen: 09/03/22 12:52 No new complaints Exam Narrative: GENERAL APPEARANCE: Well developed, emaciated, alert and cooperative, and appears to be in mild respiratory distress while on supplemental oxygen via nasal cannula. SKIN: Inspection of the skin reveals no rashes, ulcerations or petechiae. HEENT: Sclerae anicteric and conjunctivae pink and moist. Extraocular movements were intact and pupils were equal, round. The oral mucosa, hard and soft palate, tongue and posterior pharynx were normal. NECK: Supple. There was no thyroid enlargement, and no tenderness, or masses were felt. CHEST: increased AP diameter and normal contour without any kyphoscoliosis. LUNGS: Auscultation of the lungs revealed distant breath sounds bilaterally with crackles in left upper chest anteriorly CARDIAC: There was a regular rate and rhythm without any murmurs, gallops, rubs. ABDOMEN: Soft and nontender with normal bowel sounds. There was no organomegaly. LYMPH NODES: No lymphadenopathy was appreciated in the neck. EXTREMITIES: No cyanosis, clubbing or edema. NEUROLOGIC: Alert and oriented x 3. Normal affect. Objective Data Vital Signs Vital Signs: Vital Signs - 24 hr 12/30/22 14:00 09/02/22 15:05 09/02/22 15:17 Temperature 97.7 F Pulse Rate 79 78 85 Respiratory Rate 18 18 18 Blood Pressure 115/54 L Pulse Oximetry 93 Oxygen Delivery Oxygen Flow Rate Fraction of Inspired Oxygen 09/02/22 20:21 09/02/22 20:00 09/02/22 20:00 Temperature 98.4 F Pulse Rate 86 73 78 Respiratory Rate 14 Blood Pressure 126/65 Pulse Oximetry 94 Oxygen Delivery Oxygen Flow Rate Fraction of Inspired Oxygen 09/02/22 20:00 09/03/22 00:00 09/03/22 00:00 Temperature 97.0 F L Pulse Rate 71 69 Respiratory Rate 14 Blood Pressure 124/67 Pulse Oximetry 94 92 Oxygen Delivery Nasal Cannula Oxygen Flow Rate 2 Fraction of Inspired Oxygen 09/03/22 04:10 09/03/22 04:00 09/03/22 04:00 Temperature 98.2 F Pulse Rate 74 69 71 Respiratory Rate 16 14 Blood Pressure 138/60 Pulse Oximetry 99 Oxygen Delivery Oxygen Flow Rate Fraction of Inspired Oxygen 09/03/22 08:02 09/03/22 08:02 09/03/22 10:42 Temperature Pulse Rate 78 83 Respiratory Rate Blood Pressure Pulse Oximetry 90 89 L Oxygen Delivery Nasal Cannula Nasal Cannula Oxygen Flow Rate 2 2 Fraction of Inspired Oxygen 28 09/03/22 09:05 09/03/22 09:20 Temperature Pulse Rate 74 77 Respiratory Rate 16 16 Blood Pressure Pulse Oximetry Oxygen Delivery Oxygen Flow Rate Fraction of Inspired Oxygen Intake/Output Intake/Output:
--- NOTE | 2022-09-03 14:43 | PCOTNOTE ---
Addendum entered by DOC Diallo 09/03/22 16:16: Pt and Pt's daughter were educated on the importance of early mobilization to increase strengthening for daily occupation independence. Original Note: Attempted to see pt for Occupational therapy. Pt was willing to get up into the chair and wanted her daughter to complete her bathing for her. Pt was educated on the benefits and purpose of pt completing self care task without as much dependency as possible for increase independence. Pt and daughter present stating that she has been sick for at leas 5 days and is normally very independent and did not see the need to have pt complete tasks herself. Pt was encouraged to get in the chair to sit awhile, however, did not want to do that due to her bed lines not being able to be changed right away. RN was educated on pt's resistance to participation in therapy. Will continue per poc duration and frequency.
[2022-09-03] MEDS: VANCOMYCIN HCL 500 MG in DEXTROSE 5% 100 ML IVPB (15:07)
[2022-09-03] MEDS: RIVAROXABAN 15 MG TABLET PO (18:25)
[2022-09-03] MEDS: PRAVASTATIN SODIUM 20 MG TABLET PO (20:41)
[2022-09-03] MEDS: SOTALOL HCL 80 MG TABLET PO (20:41)
[2022-09-04] VITALS (23 sets, daily range): BP systolic 125–143; BP diastolic 59–68; PULSE 65–88; RESP 12–95; TEMP 35.9–36.9; O2SAT 91–97
[2022-09-04] MEDS: LEVALBUTEROL NEB 1.25 MG/3 ML 0.63 MG INHALATION ×6 (01:00→20:55)
[2022-09-04 07:40] LABS: Basophils Percent Auto 0.2 % (0.2-1.2); Eosinophils Absolute Auto 0.1 K/mm3 (0-0.3); Eosinophils Percent Auto 0.5 % (0-4.4); Hematocrit 35.1 % (37.0-47.0); Immature Granulocyte Absolute 0.18 K/mm3 (0.00-0.031); Immature Granulocyte Percent A 0.9 % (0-0.5); Lymphocytes Absolute Auto 1.15 K/mm3 (0.9-3.2); Lymphocytes Percent Auto 5.5 % (18.3-44.2); Mean Corpuscular HGB Conc 31.3 g/dl (32-36); Mean Corpuscular Volume 98.9 fl (80-100); Mean Platelet Volume 9.6 fl (7.4-10.4); Monocytes Absolute Auto 1.1 K/mm3 (0.1-0.6); Monocytes Percent Auto 5.2 % (2.6-8.5); Neutrophils Absolute Auto 18.2 K/mm3 (1.3-6.7); Neutrophils Percent Auto 87.7 % (45.5-73.1); Platelet Count Result 351 k/mm3 (150-375); Red Blood Count 3.55 M/mm3 (4.2-5.4); Red Cell Distribution Width 12.6 % (11.5-14.5); White Blood Count 20.8 K/mm3 (4.5-10.0)
[2022-09-04] MEDS: FLUTICASONE/UMECLIDIN/VILANTER 100-62.5-25 MCG ELLIPTA 1 PUFF INHALATION (07:59)
[2022-09-04 08:02] LABS: Estimated CRCL calculation 39 ml/min; Estimated Glomerular Filt Rate > 60
[2022-09-04] MEDS: MAGNESIUM OXIDE 400 MG TABLET PO (09:05)
[2022-09-04] MEDS: MIRABEGRON 25 MG ER TABLET PO (09:05)
[2022-09-04] MEDS: SOTALOL HCL 40 MG TABLET PO (09:05)
--- NOTE | 2022-09-04 11:18 | PM.IMPN ---
Progress Note: A&P Assessment and Plan (1) Pneumonia: Qualifiers: Laterality: left Lung location: unspecified part of lung Pneumonia type: due to unspecified organism Qualified Code(s): J18.9 - Pneumonia, unspecified organism Code(s): J18.9 - Pneumonia, unspecified organism Status: Acute Assessment and Plan: IV antibiotics Appreciate pulmonary input (2) Atrial fibrillation: Qualifiers: Atrial fibrillation type: paroxysmal Qualified Code(s): I48.0 - Paroxysmal atrial fibrillation Code(s): I48.91 - Unspecified atrial fibrillation Status: Acute Assessment and Plan: Rates controlled. Continue home meds (3) Hypercholesterolemia: Code(s): E78.00 - Pure hypercholesterolemia, unspecified Status: Acute (4) Hypertension: Code(s): I10 - Essential (primary) hypertension Status: Acute (5) Diastolic heart failure: Code(s): I50.30 - Unspecified diastolic (congestive) heart failure Status: Acute Assessment and Plan: Compensated (6) COPD (chronic obstructive pulmonary disease): Code(s): J44.9 - Chronic obstructive pulmonary disease, unspecified Status: Acute Assessment and Plan: Monitor. Most of her pulmonary issues are from pneumonia. Subjective Date/time seen: 09/04/22 11:18 No complaints Exam Narrative: GENERAL APPEARANCE: Well developed, emaciated, alert and cooperative, and appears to be in mild respiratory distress while on supplemental oxygen via nasal cannula. SKIN: Inspection of the skin reveals no rashes, ulcerations or petechiae. HEENT: Sclerae anicteric and conjunctivae pink and moist. Extraocular movements were intact and pupils were equal, round. The oral mucosa, hard and soft palate, tongue and posterior pharynx were normal. NECK: Supple. There was no thyroid enlargement, and no tenderness, or masses were felt. CHEST: increased AP diameter and normal contour without any kyphoscoliosis. LUNGS: Auscultation of the lungs revealed distant breath sounds bilaterally with crackles in left upper chest anteriorly CARDIAC: There was a regular rate and rhythm without any murmurs, gallops, rubs. ABDOMEN: Soft and nontender with normal bowel sounds. There was no organomegaly. LYMPH NODES: No lymphadenopathy was appreciated in the neck. EXTREMITIES: No cyanosis, clubbing or edema. NEUROLOGIC: Alert and oriented x 3. Normal affect. Objective Data Vital Signs Vital Signs: Vital Signs - 24 hr 12/31/22 12:50 09/03/22 13:01 09/03/22 14:00 Temperature 98.3 F Pulse Rate 73 77 74 Respiratory Rate 16 16 16 Blood Pressure 124/62 Pulse Oximetry 94 Oxygen Delivery Oxygen Flow Rate Fraction of Inspired Oxygen 09/03/22 12:00 09/03/22 16:13 09/03/22 16:00 Temperature Pulse Rate 79 72 76 Respiratory Rate 18 Blood Pressure Pulse Oximetry Oxygen Delivery Oxygen Flow Rate Fraction of Inspired Oxygen 09/03/22 16:57 09/03/22 20:41 09/03/22 21:04 Temperature Pulse Rate 74 80 72 Respiratory Rate 18 18 Blood Pressure Pulse Oximetry Oxygen Delivery Oxygen Flow Rate Fraction of Inspired Oxygen 09/03/22 21:16 09/03/22 21:16 09/03/22 21:22 Temperature 97.8 F Pulse Rate 75 81 Respiratory Rate 18 16 Blood Pressure 108/70 Pulse Oximetry 91 94 Oxygen Delivery Nasal Cannula Oxygen Flow Rate 2 Fraction of Inspired Oxygen 09/04/22 00:00 09/04/22 01:01 09/04/22 01:11 Temperature Pulse Rate 65 71 75 Respiratory Rate 18 18 Blood Pressure Pulse Oximetry Oxygen Delivery Oxygen Flow Rate Fraction of Inspired Oxygen 09/04/22 04:30 09/04/22 04:40 09/04/22 05:11 Temperature 96.7 F L Pulse Rate 71 75 69 Respiratory Rate 18 18 12 Blood Pressure 133/62 Pulse Oximetry 97 Oxygen Delivery Oxygen Flow Rate Fraction of Inspired Oxygen 09/04/22 04:00 09/04/22 07:59 09/04/22 08:02 Tem
[2022-09-04] MEDS: VANCOMYCIN HCL 500 MG in DEXTROSE 5% 100 ML IVPB (12:52)
[2022-09-04] MEDS: RIVAROXABAN 15 MG TABLET PO (17:21)
[2022-09-04] MEDS: SOTALOL HCL 80 MG TABLET PO (21:18)
[2022-09-04] MEDS: PRAVASTATIN SODIUM 20 MG TABLET PO (21:19)
[2022-09-05] VITALS (16 sets, daily range): BP systolic 126–142; BP diastolic 69–71; PULSE 65–103; RESP 16–24; TEMP 36.2–36.9; O2SAT 92–95
[2022-09-05] MEDS: LEVALBUTEROL NEB 1.25 MG/3 ML 0.63 MG INHALATION ×5 (00:26→17:45)
[2022-09-05] MEDS: ALPRAZolam (*CRX) 0.25 MG TABLET PO (03:07)
--- NOTE | 2022-09-05 09:46 | PM.PNPUL ---
Progress Note: A&P Assessment and Plan (1) Pneumonia: Qualifiers: Laterality: left Lung location: unspecified part of lung Pneumonia type: due to unspecified organism Qualified Code(s): J18.9 - Pneumonia, unspecified organism Code(s): J18.9 - Pneumonia, unspecified organism Status: Acute Assessment and Plan: Patient with left upper and lingula pneumonia. She received cefepime from 08/30 through 09/02. She has been on Levaquin since 08/30 (day 7) and imipenem and vancomycin since 09/02 (both day 4). She is afebrile. Her leukocytosis is improved but still present, she still has green phlegm and her chest x-ray is unchanged compared with 09/02/2022. Blood cultures are negative, MRSA swab is negative. Influenza in COVID RT PCR study negative, urine Legionella negative, urine pneumococcal antigen is pending. Will continue current antibiotics. (2) COPD (chronic obstructive pulmonary disease): Code(s): J44.9 - Chronic obstructive pulmonary disease, unspecified Status: Acute Assessment and Plan: Patient with severe apical predominant panlobular emphysema on CT scan on 08/30/2022. She was on no home 02. I have no PFTs. At baseline she states she can walk room to room. Today she has no wheezing. I will continue trilogy 100-62.5-25 at 1 puff q.day which is her home medicine. I will change her inhaled nebulized levalbuterol to p.r.n. will follow with you. Subjective Date/time seen: 09/05/22 09:46 Interval history: 09/05/2022 Patient states that she continues to slowly improve. Overall states she is 50% back to normal. stats she is 40% back to normal. She remains fatigued. Her cough is back to normal. She is making green phlegm. Her white blood cell count is 20.8. Her chest x-ray shows unchanged left mid and lower lung infiltrate and a small left pleural effusion. DATA: 08/30/2022 Clinical Indication: Chest pain, shortness of breath CT Scan of the Chest with Contrast: Technique: Contiguous sections were acquired throughout the chest after intravenous administration of 100 cc of Omnipaque 350. Dose reduction technique was used on this scan by utilizing automated exposure control and iterative reconstruction technique. The dose-length product (DLP) was 138.50 mGy-cm. COMPARISON: 12/14/2021 Findings: There is no evidence of any significant mediastinal, hilar or axillary lymphadenopathy. There is no filling defect in the pulmonary arterial tree to suggest pulmonary embolus. There is no evidence of aortic dissection or aneurysm. There is no evidence of pleural or pericardial effusion. There is extensive left upper lobe and lingular consolidation. Underlying diffuse moderate to severe emphysema present. Stable nodules in the left upper and lower lobes (axial images 53, 61). Images through the upper abdomen reveal no abnormalities. Impression: No evidence of pulmonary embolus, aortic dissection, or aortic aneurysm. Extensive left upper lobe pneumonia. Follow-up to radiographic resolution advised. Underlying moderate to severe diffuse emphysema. Review of Systems Constitutional: Constitutional: Reports no additional constitutional complaints Eyes: Eyes: Reports no additional eye complaints ENT: Reports system reviewed and no additional complaints, except as documented Cardiovascular: Cardiovascular: Reports no additional cardiovascular complaints Respiratory: Respiratory: Reports no additional respiratory complaints Gastrointestinal: Gastrointestinal: Reports no additional gastrointestinal complaints Musculoskeletal: Musculoskeletal: Reports no additional musculoskeletal complaints Neurologic: Reports system reviewed and no additional complaints, except as documented Psychiatric: Psychiatric: Reports no additional psychiatric complaints Endocrine: Endocrine: Reports no additional endocrine complaints Hematologic/Lymphatic:
--- NOTE | 2022-09-05 12:27 | PM.IMPN ---
Progress Note: A&P Assessment and Plan (1) Pneumonia: Qualifiers: Laterality: left Lung location: unspecified part of lung Pneumonia type: due to unspecified organism Qualified Code(s): J18.9 - Pneumonia, unspecified organism Code(s): J18.9 - Pneumonia, unspecified organism Status: Acute Assessment and Plan: IV antibiotics Appreciate pulmonary input (2) Atrial fibrillation: Qualifiers: Atrial fibrillation type: paroxysmal Qualified Code(s): I48.0 - Paroxysmal atrial fibrillation Code(s): I48.91 - Unspecified atrial fibrillation Status: Acute Assessment and Plan: Rates controlled. Continue home meds (3) Hypercholesterolemia: Code(s): E78.00 - Pure hypercholesterolemia, unspecified Status: Acute (4) Hypertension: Code(s): I10 - Essential (primary) hypertension Status: Acute (5) Diastolic heart failure: Code(s): I50.30 - Unspecified diastolic (congestive) heart failure Status: Acute Assessment and Plan: Compensated (6) COPD (chronic obstructive pulmonary disease): Code(s): J44.9 - Chronic obstructive pulmonary disease, unspecified Status: Acute Assessment and Plan: Monitor. Most of her pulmonary issues are from pneumonia. Subjective Date/time seen: 09/05/22 12:27 No complaints Exam Narrative: GENERAL APPEARANCE: Well developed, emaciated, alert and cooperative, and appears to be in mild respiratory distress while on supplemental oxygen via nasal cannula. SKIN: Inspection of the skin reveals no rashes, ulcerations or petechiae. HEENT: Sclerae anicteric and conjunctivae pink and moist. Extraocular movements were intact and pupils were equal, round. The oral mucosa, hard and soft palate, tongue and posterior pharynx were normal. NECK: Supple. There was no thyroid enlargement, and no tenderness, or masses were felt. CHEST: increased AP diameter and normal contour without any kyphoscoliosis. LUNGS: Auscultation of the lungs revealed distant breath sounds bilaterally with crackles in left upper chest anteriorly CARDIAC: There was a regular rate and rhythm without any murmurs, gallops, rubs. ABDOMEN: Soft and nontender with normal bowel sounds. There was no organomegaly. LYMPH NODES: No lymphadenopathy was appreciated in the neck. EXTREMITIES: No cyanosis, clubbing or edema. NEUROLOGIC: Alert and oriented x 3. Normal affect. Objective Data Vital Signs Vital Signs: Vital Signs - 24 hr 09/04/22 14:00 09/04/22 15:58 09/04/22 16:06 Temperature 98.4 F Pulse Rate 71 68 69 Respiratory Rate 95 H 20 20 Blood Pressure 125/59 L Pulse Oximetry 95 Oxygen Delivery Oxygen Flow Rate 09/04/22 16:00 09/04/22 20:26 09/04/22 20:57 Temperature 97.2 F L Pulse Rate 69 74 70 Respiratory Rate 16 16 Blood Pressure 143/68 H Pulse Oximetry 91 Oxygen Delivery Oxygen Flow Rate 09/04/22 21:18 09/04/22 20:00 09/05/22 00:27 Temperature Pulse Rate 70 88 74 Respiratory Rate 16 Blood Pressure Pulse Oximetry Oxygen Delivery Oxygen Flow Rate 09/05/22 00:00 09/05/22 03:33 09/05/22 04:00 Temperature 97.1 F L Pulse Rate 65 66 71 Respiratory Rate 20 Blood Pressure 126/69 Pulse Oximetry 92 Oxygen Delivery Oxygen Flow Rate 09/05/22 08:46 09/05/22 08:47 Temperature Pulse Rate 73 Respiratory Rate 16 Blood Pressure Pulse Oximetry 93 Oxygen Delivery Nasal Cannula Oxygen Flow Rate 2 Intake/Output Intake/Output: Intake & Output 09/02/22 09/03/22 09/04/22 09/05/22 23:59 23:59 23:59 23:59 Intake Total 1520 2040 3585 935 Output Total 150 Balance 1520 1890 3585 935 Meds/Results Medications: Active Medications Generic Name Dose Route Start Last Admin Trade Name Freq PRN Reason Stop Dose Admin Alprazolam 0.25 mg 09/01/22 12:04 09/05/22 03:07 Alprazolam (*Crx) 0.25 Mg Tablet PO 0.25 mg TID PRN Adm
[2022-09-05] MEDS: SOTALOL HCL 40 MG TABLET PO (12:54)
[2022-09-05] MEDS: MIRABEGRON 25 MG ER TABLET PO (12:56)
[2022-09-05] MEDS: MAGNESIUM OXIDE 400 MG TABLET PO (12:56)
[2022-09-05 13:21] LABS: Basophils Percent Auto 0.1 % (0.2-1.2); Eosinophils Absolute Auto 0.1 K/mm3 (0-0.3); Hematocrit 35.6 % (37.0-47.0); Hemoglobin 10.8 g/dL (12.0-15.0); Immature Granulocyte Absolute 0.07 K/mm3 (0.00-0.031); Immature Granulocyte Percent A 0.5 % (0-0.5); Lymphocytes Absolute Auto 0.81 K/mm3 (0.9-3.2); Lymphocytes Percent Auto 5.9 % (18.3-44.2); Mean Corpuscular HGB Conc 30.3 g/dl (32-36); Mean Corpuscular Hemoglobin 29.8 pg (26-34); Mean Corpuscular Volume 98.3 fl (80-100); Mean Platelet Volume 9.5 fl (7.4-10.4); Monocytes Absolute Auto 0.9 K/mm3 (0.1-0.6); Monocytes Percent Auto 6.8 % (2.6-8.5); Neutrophils Absolute Auto 11.8 K/mm3 (1.3-6.7); Neutrophils Percent Auto 85.7 % (45.5-73.1); Platelet Count Result 360 k/mm3 (150-375); Red Blood Count 3.62 M/mm3 (4.2-5.4); Red Cell Distribution Width 12.5 % (11.5-14.5); White Blood Count 13.7 K/mm3 (4.5-10.0)
[2022-09-05 13:40] LABS: Vancomycin Trough 5.1 ug/mL (10.0-20.0)
--- NOTE | 2022-09-05 14:02 | PCPTNOTE ---
Attempted to see patient for Physical Therapy at 12:16 and patient was eating lunch and patient's stated that he would like for patient to have a breathing treatment prior to doing Physical Therapy. Patient just finished with a breathing treatment and therapist attempted to see patient at 13:38. Patient stated that she needed cleaned up. Therapist offered to talk to nursing staff to help her get cleaned up, however patient declined. Patient stated that she would rather wait until her daughter gets here to get cleaned up. Patient declined to do therapy at this time. RN notified and stated that she would check in with patient regarding wanting to be cleaned up.
[2022-09-05] MEDS: VANCOMYCIN HCL 500 MG in DEXTROSE 5% 100 ML IVPB (14:16)
--- NOTE | 2022-09-05 14:57 | PCPTNOTE ---
Attempted to see patient for PT, however patient was waiting to get cleaned up and up to commode with assistance from patient's daughter. Patient declined PT and to get up with PT.
[2022-09-05] MEDS: RIVAROXABAN 15 MG TABLET PO (18:42)
[2022-09-05] MEDS: PRAVASTATIN SODIUM 20 MG TABLET PO (21:22)
[2022-09-05] MEDS: SOTALOL HCL 80 MG TABLET PO (21:22)
[2022-09-05] MEDS: ACETAMINOPHEN 325 MG TABLET 650 MG PO (21:25)
[2022-09-06] VITALS (15 sets, daily range): BP systolic 120–138; BP diastolic 64–87; PULSE 63–81; RESP 14–24; TEMP 36.3–36.6; O2SAT 96–98
[2022-09-06] MEDS: VANCOMYCIN HCL 500 MG in DEXTROSE 5% 100 ML IVPB ×2 (01:45→14:56)
[2022-09-06] MEDS: LEVALBUTEROL NEB 1.25 MG/3 ML 0.63 MG INHALATION ×2 (02:00→05:11)
[2022-09-06 07:24] LABS: Estimated CRCL calculation 39 ml/min; Estimated Glomerular Filt Rate > 60
[2022-09-06] MEDS: FLUTICASONE/UMECLIDIN/VILANTER 100-62.5-25 MCG ELLIPTA 1 PUFF INHALATION (08:46)
--- NOTE | 2022-09-06 09:52 | PM.PNPUL ---
Progress Note: A&P Assessment and Plan (1) Pneumonia: Qualifiers: Laterality: left Lung location: unspecified part of lung Pneumonia type: due to unspecified organism Qualified Code(s): J18.9 - Pneumonia, unspecified organism Code(s): J18.9 - Pneumonia, unspecified organism Status: Acute Assessment and Plan: 09/05/2022 Patient with left upper and lingula pneumonia. She received cefepime from 08/30 through 09/02. She has been on Levaquin since 08/30 (day 7) and imipenem and vancomycin since 09/02 (both day 4). She is afebrile. Her leukocytosis is improved From a peak of 41.6 to 20.8 today, she still has green phlegm and her chest x-ray is unchanged compared with 09/02/2022. Blood cultures are negative, MRSA swab is negative. Influenza in COVID RT PCR study negative, urine Legionella negative, urine pneumococcal antigen is pending. 09/06/2021. Patient states she continues to slowly improve. She states she has 70% back to her baseline. She has left chest discomfort, the cough is improved and her sputum is now light green. Her saturations on 2 L nasal cannula are 96%. Her white blood cell count is 13.7. She remains weak with dyspnea on exertion walking to the bathroom. Will continue levaquin, day 8, imipenem and vancomycin both day 5. Aggressive OT and PT for ambulation. (2) COPD (chronic obstructive pulmonary disease): Code(s): J44.9 - Chronic obstructive pulmonary disease, unspecified Status: Acute Assessment and Plan: Patient with severe apical predominant panlobular emphysema on CT scan on 08/30/2022. She was on no home 02. I have no PFTs. At baseline she states she can walk room to room. 09/05 Today she has no wheezing. I will continue trilogy 100-62.5-25 at 1 puff q.day which is her home medicine. I will change her inhaled nebulized levalbuterol to p.r.n. 09/06 no wheezing, continue trilogy 100. I will add guaifenesin ER 600 mg p.o. b.i.d.. will follow with you. Subjective Date/time seen: 09/06/22 09:52 Interval history: 09/05/2022 Patient states that she continues to slowly improve. Overall states she is 50% back to normal. stats she is 40% back to normal. She remains fatigued. Her cough is back to normal. She is making green phlegm. Her white blood cell count is 20.8. Her chest x-ray shows unchanged left mid and lower lung infiltrate and a small left pleural effusion. 09/06/2021. Patient states she continues to slowly improve. She states she has 70% back to her baseline. She has left chest discomfort, the cough is improved and her sputum is now light green. Her saturations on 2 L nasal cannula are 96%. Her white blood cell count is 13.7. She remains weak with dyspnea on exertion walking to the bathroom. DATA: 08/30/2022 Clinical Indication: Chest pain, shortness of breath CT Scan of the Chest with Contrast: Technique: Contiguous sections were acquired throughout the chest after intravenous administration of 100 cc of Omnipaque 350. Dose reduction technique was used on this scan by utilizing automated exposure control and iterative reconstruction technique. The dose-length product (DLP) was 138.50 mGy-cm. COMPARISON: 12/14/2021 Findings: There is no evidence of any significant mediastinal, hilar or axillary lymphadenopathy. There is no filling defect in the pulmonary arterial tree to suggest pulmonary embolus. There is no evidence of aortic dissection or aneurysm. There is no evidence of pleural or pericardial effusion. There is extensive left upper lobe and lingular consolidation. Underlying diffuse moderate to severe emphysema present. Stable nodules in the left upper and lower lobes (axial images 53, 61). Images through the upper abdomen reveal no abnormalities. Impression: No evidence of pulmonary embolus, aortic dissection, or aortic aneurysm. Extensive left upper lobe pneumonia. Follow-up to [facility]
[2022-09-06] MEDS: SOTALOL HCL 40 MG TABLET PO (10:18)
[2022-09-06] MEDS: MIRABEGRON 25 MG ER TABLET PO (10:18)
[2022-09-06] MEDS: MAGNESIUM OXIDE 400 MG TABLET PO (10:18)
[2022-09-06] MEDS: guaiFENesin 12 HR 600 MG TABCR PO ×2 (10:20→21:06)
--- NOTE | 2022-09-06 12:17 | PM.IMPN ---
Progress Note: A&P Assessment and Plan (1) Pneumonia: Qualifiers: Laterality: left Lung location: unspecified part of lung Pneumonia type: due to unspecified organism Qualified Code(s): J18.9 - Pneumonia, unspecified organism Code(s): J18.9 - Pneumonia, unspecified organism Status: Acute Assessment and Plan: IV antibiotics Appreciate pulmonary input (2) Atrial fibrillation: Qualifiers: Atrial fibrillation type: paroxysmal Qualified Code(s): I48.0 - Paroxysmal atrial fibrillation Code(s): I48.91 - Unspecified atrial fibrillation Status: Acute Assessment and Plan: Rates controlled. Continue home meds (3) Hypercholesterolemia: Code(s): E78.00 - Pure hypercholesterolemia, unspecified Status: Acute (4) Hypertension: Code(s): I10 - Essential (primary) hypertension Status: Acute (5) Diastolic heart failure: Code(s): I50.30 - Unspecified diastolic (congestive) heart failure Status: Acute Assessment and Plan: Compensated (6) COPD (chronic obstructive pulmonary disease): Code(s): J44.9 - Chronic obstructive pulmonary disease, unspecified Status: Acute Assessment and Plan: Monitor. Most of her pulmonary issues are from pneumonia. Subjective Date/time seen: 09/06/22 12:17 No complaints Exam Narrative: GENERAL APPEARANCE: Well developed, emaciated, alert and cooperative, and appears to be in mild respiratory distress while on supplemental oxygen via nasal cannula. SKIN: Inspection of the skin reveals no rashes, ulcerations or petechiae. HEENT: Sclerae anicteric and conjunctivae pink and moist. Extraocular movements were intact and pupils were equal, round. The oral mucosa, hard and soft palate, tongue and posterior pharynx were normal. NECK: Supple. There was no thyroid enlargement, and no tenderness, or masses were felt. CHEST: increased AP diameter and normal contour without any kyphoscoliosis. LUNGS: Auscultation of the lungs revealed distant breath sounds bilaterally with crackles in left upper chest anteriorly CARDIAC: There was a regular rate and rhythm without any murmurs, gallops, rubs. ABDOMEN: Soft and nontender with normal bowel sounds. There was no organomegaly. LYMPH NODES: No lymphadenopathy was appreciated in the neck. EXTREMITIES: No cyanosis, clubbing or edema. NEUROLOGIC: Alert and oriented x 3. Normal affect. Objective Data Vital Signs Vital Signs: Vital Signs - 24 hr 09/05/22 12:54 09/05/22 15:00 09/05/22 17:46 Temperature 98.4 F Pulse Rate 83 77 75 Respiratory Rate 18 20 Blood Pressure 136/71 Pulse Oximetry 95 Oxygen Delivery Oxygen Flow Rate Fraction of Inspired Oxygen 09/05/22 16:00 09/05/22 21:22 09/05/22 21:26 Temperature 97.9 F Pulse Rate 97 70 73 Respiratory Rate 24 H Blood Pressure 142/69 H Pulse Oximetry 93 Oxygen Delivery Oxygen Flow Rate Fraction of Inspired Oxygen 09/05/22 20:00 09/06/22 02:01 09/05/22 21:10 Temperature Pulse Rate 81 Respiratory Rate 22 H Blood Pressure Pulse Oximetry 93 92 Oxygen Delivery Nasal Cannula Nasal Cannula Oxygen Flow Rate 2 2 Fraction of Inspired Oxygen 09/06/22 02:11 09/05/22 20:00 09/06/22 00:00 Temperature Pulse Rate 81 73 67 Respiratory Rate 20 Blood Pressure Pulse Oximetry Oxygen Delivery Oxygen Flow Rate Fraction of Inspired Oxygen 09/06/22 04:00 09/06/22 05:14 09/06/22 05:22 Temperature Pulse Rate 65 70 72 Respiratory Rate 20 20 Blood Pressure Pulse Oximetry Oxygen Delivery Oxygen Flow Rate Fraction of Inspired Oxygen 09/06/22 06:00 09/06/22 08:48 09/06/22 08:00 Temperature 97.6 F Pulse Rate 70 70 Respiratory Rate 24 H Blood Pressure 138/67 Pulse Oximetry 96 96 Oxygen Delivery Nasal Cannula Oxygen Flow Rate 2 Fraction of Inspired Oxygen 09/06/22 08:00 Temperature
[2022-09-06] MEDS: ACETAMINOPHEN 325 MG TABLET 650 MG PO ×2 (12:53→21:06)
[2022-09-06] MEDS: RIVAROXABAN 15 MG TABLET PO (18:00)
[2022-09-06] MEDS: SOTALOL HCL 80 MG TABLET PO (21:06)
[2022-09-06] MEDS: PRAVASTATIN SODIUM 20 MG TABLET PO (21:06)
[2022-09-07] VITALS (15 sets, daily range): BP systolic 110–119; BP diastolic 59–75; PULSE 68–84; RESP 16–22; TEMP 36.2–37.2; O2SAT 93–97
[2022-09-07 00:37] LABS: Pneumococcal Antigen Urine Not Detected (Not Detected)
[2022-09-07 02:21] LABS: Vancomycin Trough 10.1 ug/mL (10.0-20.0)
[2022-09-07 08:44] LABS: Glucose Point of Care 102 mg/dl (65-105)
[2022-09-07] MEDS: SOTALOL HCL 40 MG TABLET PO (09:01)
[2022-09-07] MEDS: guaiFENesin 12 HR 600 MG TABCR PO ×2 (09:01→20:13)
[2022-09-07] MEDS: MIRABEGRON 25 MG ER TABLET PO (09:01)
[2022-09-07] MEDS: MAGNESIUM OXIDE 400 MG TABLET PO (09:02)
[2022-09-07] MEDS: ACETAMINOPHEN 325 MG TABLET 650 MG PO (09:04)
[2022-09-07] MEDS: FLUTICASONE/UMECLIDIN/VILANTER 100-62.5-25 MCG ELLIPTA 1 PUFF INHALATION (09:44)
[2022-09-07] MEDS: LEVALBUTEROL NEB 1.25 MG/3 ML 0.63 MG INHALATION ×2 (09:47→18:58)
--- NOTE | 2022-09-07 11:13 | PM.CNPUL ---
Assessment and Plan Assessment and plan (1) Pneumonia: Qualifiers: Laterality: left Lung location: unspecified part of lung Pneumonia type: due to unspecified organism Qualified Code(s): J18.9 - Pneumonia, unspecified organism Code(s): J18.9 - Pneumonia, unspecified organism Status: Acute Assessment and Plan: 09/05/2022 Patient with left upper and lingula pneumonia. She received cefepime from 08/30 through 09/02. She has been on Levaquin since 08/30 (day 7) and imipenem and vancomycin since 09/02 (both day 4). She is afebrile. Her leukocytosis is improved From a peak of 41.6 to 20.8 today, she still has green phlegm and her chest x-ray is unchanged compared with 09/02/2022. Blood cultures are negative, MRSA swab is negative. Influenza in COVID RT PCR study negative, urine Legionella negative, urine pneumococcal antigen is pending. 09/06/2021. Patient states she continues to slowly improve. She states she has 70% back to her baseline. She has left chest discomfort, the cough is improved and her sputum is now light green. Her saturations on 2 L nasal cannula are 96%. Her white blood cell count is 13.7. She remains weak with dyspnea on exertion walking to the bathroom. Will continue levaquin, day 8, imipenem and vancomycin both day 5. Aggressive OT and PT for ambulation. 09/07/2022: patient states she is a little better than yesterday. Her phlegm continues to clear, she has no wheezing. Saturations on 2 L were 96%. Saturations on room air decreased to 90% and the patient felt short of breath and I increased her to 1 L and her saturations were 92%. Patient has been walking in the room. Will continue levaquin, day 9, imipenem and vancomycin both day 6. Aggressive OT and PT for ambulation. I will repeat it chest x-ray on 09/08/2022 (2) COPD (chronic obstructive pulmonary disease): Code(s): J44.9 - Chronic obstructive pulmonary disease, unspecified Status: Acute Assessment and Plan: Patient with severe apical predominant panlobular emphysema on CT scan on 08/30/2022. She was on no home 02. I have no PFTs. At baseline she states she can walk room to room. 09/05 Today she has no wheezing. I will continue trilogy 100-62.5-25 at 1 puff q.day which is her home medicine. I will change her inhaled nebulized levalbuterol to p.r.n. 09/06 no wheezing, continue trilogy 100. I will add guaifenesin ER 600 mg p.o. b.i.d.. 09/07 No wheezing continue trilogy and guaifenesin. Goal saturation 90-94%. will follow with you. History of Present Illness History of Present Illness Consult date: 09/07/22 Chief complaint: pneumonia Narrative: 09/05/2022 Patient states that she continues to slowly improve.? Overall states she is 50% back to normal. stats she is 40% back to normal. She remains fatigued.? Her cough is back to normal.? She is making green phlegm.? Her white blood cell count is 20.8.? Her chest x-ray shows unchanged left mid and lower lung infiltrate and a small left pleural effusion. ? 09/06/2021.? Patient states she continues to slowly improve.? She states she has 70% back to her baseline.? She has left chest discomfort, the cough is improved and her sputum is now light green.? Her saturations on 2 L nasal cannula are 96%.? Her white blood cell count is 13.7. ? She remains weak with dyspnea on exertion walking to the bathroom. 09/07/2022: patient states she is a little better than yesterday. Her phlegm continues to clear, she has no wheezing. Saturations on 2 L were 96%. Saturations on room air decreased to 90% and the patient felt short of breath and I increased her to 1 L and her saturations were 92%. Patient has been walking in the room. DATA: 08/30/2022 Clinical Indication: Chest pain, shortness of breath CT Scan of the Chest with Contrast: Technique: Contiguous sections were acquired throughout the chest after intravenous administratio
[2022-09-07 11:48] LABS: Glucose Point of Care 141 mg/dl (65-105)
--- NOTE | 2022-09-07 13:22 | PCPTNOTE ---
Patient refused treatment this session stating she has been up out of bed several times this morning and has had enough activity for today.
[2022-09-07] MEDS: LEVALBUTEROL HFA (*SP) 15 GM INHALER 2 PUFF INHALATION (13:46)
[2022-09-07 16:49] LABS: Glucose Point of Care 236 mg/dl (65-105)
--- NOTE | 2022-09-07 17:38 | PM.IMPN ---
Progress Note: A&P Assessment and Plan (1) Pneumonia: Qualifiers: Laterality: left Lung location: unspecified part of lung Pneumonia type: due to unspecified organism Qualified Code(s): J18.9 - Pneumonia, unspecified organism Code(s): J18.9 - Pneumonia, unspecified organism Status: Acute Assessment and Plan: IV antibiotics Appreciate pulmonary input (2) Atrial fibrillation: Qualifiers: Atrial fibrillation type: paroxysmal Qualified Code(s): I48.0 - Paroxysmal atrial fibrillation Code(s): I48.91 - Unspecified atrial fibrillation Status: Acute Assessment and Plan: Rates controlled. Continue home meds (3) Hypercholesterolemia: Code(s): E78.00 - Pure hypercholesterolemia, unspecified Status: Acute (4) Hypertension: Code(s): I10 - Essential (primary) hypertension Status: Acute (5) Diastolic heart failure: Code(s): I50.30 - Unspecified diastolic (congestive) heart failure Status: Acute Assessment and Plan: Compensated (6) COPD (chronic obstructive pulmonary disease): Code(s): J44.9 - Chronic obstructive pulmonary disease, unspecified Status: Acute Assessment and Plan: Monitor. Most of her pulmonary issues are from pneumonia. Patient states she continues to slowly improve. . Subjective Date/time seen: 09/07/22 17:38 , the cough is improved and her sputum is now light green. Her saturations on 2 L nasal cannula are 96%. Her white blood cell count is 13.7. She remains weak with dyspnea on exertion walking to the bathroom Exam Narrative: GENERAL APPEARANCE: Well developed, emaciated, alert and cooperative, and appears to be in mild respiratory distress while on supplemental oxygen via nasal cannula. SKIN: Inspection of the skin reveals no rashes, ulcerations or petechiae. HEENT: Sclerae anicteric and conjunctivae pink and moist. Extraocular movements were intact and pupils were equal, round. The oral mucosa, hard and soft palate, tongue and posterior pharynx were normal. NECK: Supple. There was no thyroid enlargement, and no tenderness, or masses were felt. CHEST: increased AP diameter and normal contour without any kyphoscoliosis. LUNGS: Auscultation of the lungs revealed distant breath sounds bilaterally with crackles in left upper chest anteriorly CARDIAC: There was a regular rate and rhythm without any murmurs, gallops, rubs. ABDOMEN: Soft and nontender with normal bowel sounds. There was no organomegaly. LYMPH NODES: No lymphadenopathy was appreciated in the neck. EXTREMITIES: No cyanosis, clubbing or edema. NEUROLOGIC: Alert and oriented x 3. Normal affect. Objective Data Vital Signs Vital Signs: Vital Signs - 24 hr 09/06/22 21:06 09/06/22 20:00 09/06/22 20:00 Temperature Pulse Rate 63 68 Respiratory Rate Blood Pressure Pulse Oximetry 98 Oxygen Delivery Nasal Cannula Oxygen Flow Rate 2 09/06/22 22:00 09/07/22 06:00 09/07/22 00:00 Temperature 97.4 F L 97.1 F L Pulse Rate 77 69 72 Respiratory Rate 17 22 H Blood Pressure 124/87 118/75 Pulse Oximetry 98 97 Oxygen Delivery Oxygen Flow Rate 09/07/22 04:00 09/07/22 09:48 09/07/22 08:00 Temperature Pulse Rate 68 69 Respiratory Rate Blood Pressure Pulse Oximetry 94 Oxygen Delivery Nasal Cannula Oxygen Flow Rate 2 09/07/22 08:00 09/07/22 14:00 Temperature 98.9 F Pulse Rate 84 Respiratory Rate 16 Blood Pressure 110/59 L Pulse Oximetry 97 95 Oxygen Delivery Nasal Cannula Oxygen Flow Rate 2 Intake/Output Intake/Output: Intake & Output 09/04/22 09/05/22 09/06/22 09/07/22 23:59 23:59 23:59 23:59 Intake Total 3585 1965 1220 690 Balance 3585 1965 1220 690 Meds/Results Medications: Active Medications Generic Name Dose Route Start Last Admin Trade Name Freq PRN Reason Stop Dose Admin Acetaminophen 650 mg 09/05/22 17:30 09/07/22 09:04 Acetam
[2022-09-07] MEDS: RIVAROXABAN 15 MG TABLET PO (18:37)
[2022-09-07] MEDS: MICONAZOLE NITRATE 2% CREAM 30 GM TUBE 1 APPLIC TOPICAL (20:13)
[2022-09-07] MEDS: PRAVASTATIN SODIUM 20 MG TABLET PO (20:14)
[2022-09-07] MEDS: SOTALOL HCL 80 MG TABLET PO (20:15)
[2022-09-08] VITALS (18 sets, daily range): BP systolic 117–122; BP diastolic 74–84; PULSE 62–93; RESP 18–24; TEMP 36.4–36.6; O2SAT 91–95
[2022-09-08] MEDS: LEVALBUTEROL HFA (*SP) 15 GM INHALER 2 PUFF INHALATION ×2 (00:16→05:56)
[2022-09-08] MEDS: LEVALBUTEROL NEB 1.25 MG/3 ML 0.63 MG INHALATION ×3 (02:29→23:01)
[2022-09-08] MEDS: ACETAMINOPHEN 325 MG TABLET 650 MG PO ×2 (03:29→15:02)
[2022-09-08 07:13] LABS: Estimated CRCL calculation 46 ml/min; Estimated Glomerular Filt Rate > 60
[2022-09-08] MEDS: FLUTICASONE/UMECLIDIN/VILANTER 100-62.5-25 MCG ELLIPTA 1 PUFF INHALATION (07:32)
[2022-09-08 07:36] LABS: Alanine Aminotransferase 17 U/L (6-35); Albumin Level 2.3 g/dL (3.5-5.1); Alkaline Phosphatase 87 U/L (38-126); Anion Gap -1 mmol/L (8-16); Aspartate Amino Transferase 27 U/L (14-36); Bilirubin,Total 0.4 mg/dL (0.2-1.3); Blood Urea Nitrogen 11 mg/dL (7-17); Calcium 7.8 mg/dL (8.4-10.2); Carbon Dioxide 35 mmol/L (22-30); Chloride 98 mmol/L (98-107); Estimated CRCL calculation 46 ml/min; Estimated Glomerular Filt Rate > 60; Glucose 106 mg/dL (65-110); Potassium 2.6 mmol/L (3.4-5.0); Sodium 132 mmol/L (137-145)
--- NOTE | 2022-09-08 07:48 | PC.NURSE ---
Potassium results called to provider. Awaiting return call.
[2022-09-08 08:03] LABS: Basophils Percent Auto 0.2 % (0.2-1.2); Eosinophils Absolute Auto 0.1 K/mm3 (0-0.3); Eosinophils Percent Auto 1.1 % (0-4.4); Hematocrit 34.8 % (37.0-47.0); Hemoglobin 11.1 g/dL (12.0-15.0); Immature Granulocyte Absolute 0.09 K/mm3 (0.00-0.031); Immature Granulocyte Percent A 0.7 % (0-0.5); Lymphocytes Absolute Auto 1.72 K/mm3 (0.9-3.2); Lymphocytes Percent Auto 12.9 % (18.3-44.2); Mean Corpuscular HGB Conc 31.9 g/dl (32-36); Mean Corpuscular Hemoglobin 31.2 pg (26-34); Mean Corpuscular Volume 97.8 fl (80-100); Mean Platelet Volume 9.6 fl (7.4-10.4); Monocytes Absolute Auto 0.8 K/mm3 (0.1-0.6); Neutrophils Absolute Auto 10.5 K/mm3 (1.3-6.7); Neutrophils Percent Auto 79.1 % (45.5-73.1); Platelet Count Result 301 k/mm3 (150-375); Red Blood Count 3.56 M/mm3 (4.2-5.4); Red Cell Distribution Width 12.8 % (11.5-14.5); White Blood Count 13.3 K/mm3 (4.5-10.0)
--- NOTE | 2022-09-08 08:33 | PC.NURSE ---
Provider again called with lab results. Message left. Awaiting return call.
[2022-09-08] MEDS: MIRABEGRON 25 MG ER TABLET PO (10:05)
[2022-09-08] MEDS: SOTALOL HCL 40 MG TABLET PO (10:05)
[2022-09-08] MEDS: guaiFENesin 12 HR 600 MG TABCR PO ×2 (10:05→20:06)
[2022-09-08] MEDS: MAGNESIUM OXIDE 400 MG TABLET PO (10:05)
[2022-09-08] MEDS: MICONAZOLE NITRATE 2% CREAM 30 GM TUBE 1 APPLIC TOPICAL ×2 (10:05→20:07)
--- NOTE | 2022-09-08 10:10 | PM.PNPUL ---
Progress Note: A&P Assessment and Plan (1) Pneumonia: Qualifiers: Laterality: left Lung location: unspecified part of lung Pneumonia type: due to unspecified organism Qualified Code(s): J18.9 - Pneumonia, unspecified organism Code(s): J18.9 - Pneumonia, unspecified organism Status: Acute Assessment and Plan: 09/05/2022 Patient with left upper and lingula pneumonia. She received cefepime from 08/30 through 09/02. She has been on Levaquin since 08/30 (day 7) and imipenem and vancomycin since 09/02 (both day 4). She is afebrile. Her leukocytosis is improved From a peak of 41.6 to 20.8 today, she still has green phlegm and her chest x-ray is unchanged compared with 09/02/2022. Blood cultures are negative, MRSA swab is negative. Influenza in COVID RT PCR study negative, urine Legionella negative, urine pneumococcal antigen is pending. 09/06/2021. Patient states she continues to slowly improve. She states she has 70% back to her baseline. She has left chest discomfort, the cough is improved and her sputum is now light green. Her saturations on 2 L nasal cannula are 96%. Her white blood cell count is 13.7. She remains weak with dyspnea on exertion walking to the bathroom. Will continue levaquin, day 8, imipenem and vancomycin both day 5. Aggressive OT and PT for ambulation. 09/07/2022: patient states she is a little better than yesterday. Her phlegm continues to clear, she has no wheezing. Saturations on 2 L were 96%. Saturations on room air decreased to 90% and the patient felt short of breath and I increased her to 1 L and her saturations were 92%. Patient has been walking in the room. Will continue levaquin, day 9, imipenem and vancomycin both day 6. Aggressive OT and PT for ambulation. I will repeat it chest x-ray on 09/08/2022. 09/08/2022 patient continues to slowly improve. She was on 1 L nasal cannula saturations 92%. Her white blood cell count is 13.3, creatinine is 0.5. Chest x-ray today shows continued left mid and lower lung infiltrates with minimal change from 09/05/22. I will order CT scan without contrast to reassess her left lung infiltrates. (2) COPD (chronic obstructive pulmonary disease): Code(s): J44.9 - Chronic obstructive pulmonary disease, unspecified Status: Acute Assessment and Plan: Patient with severe apical predominant panlobular emphysema on CT scan on 08/30/2022. She was on no home 02. I have no PFTs. At baseline she states she can walk room to room. 09/05 Today she has no wheezing. I will continue trilogy 100-62.5-25 at 1 puff q.day which is her home medicine. I will change her inhaled nebulized levalbuterol to p.r.n. 09/06 no wheezing, continue trilogy 100. I will add guaifenesin ER 600 mg p.o. b.i.d.. 09/07 No wheezing continue trilogy and guaifenesin. Goal saturation 90-94%. 09/08 No wheezing, continue trilogy. On 1 L nasal cannula. I will check an overnight oximetry on room air tonight. will follow with you. Subjective Date/time seen: 09/08/22 10:10 Interval history: 09/05/2022 Patient states that she continues to slowly improve. Overall states she is 50% back to normal. stats she is 40% back to normal. She remains fatigued. Her cough is back to normal. She is making green phlegm. Her white blood cell count is 20.8. Her chest x-ray shows unchanged left mid and lower lung infiltrate and a small left pleural effusion. 09/06/2021. Patient states she continues to slowly improve. She states she has 70% back to her baseline. She has left chest discomfort, the cough is improved and her sputum is now light green. Her saturations on 2 L nasal cannula are 96%. Her white blood cell count is 13.7. She remains weak with dyspnea on exertion walking to the bathroom. ? 09/07/2022:? patient states she is a little better than yesterday.? Her phlegm continues to clear, she has no wheezing.? Saturations on 2 L were 96%.? Satur
--- NOTE | 2022-09-08 10:42 | PCNFU ---
Nutrition Follow-Up Complete: Underweight as evidenced by a low BMI of 14.7 Goal: PO intake 50% or greater for meals and supplements Patient is progressing towards goal. We will continue current goal. Pt current nutrition is Regular with Ensure Clear Once daily. Last recorded weight is 35.4 kg. Bowel Motility:+BM reported 1/3 Labs Reviewed:K 2.6,Alb 2.3,Hct 34.8,Hgb 11.1 Meds Noted:Vancomycin, Mag ox, Mucinex Skin: WNL Additional Notes: Nutrition follow up. Patient remains on a regular diet. Oral Intake has been fair 25-75% of meals. Diet supplement of Ensure Clear providing an additional 240 kcals and 8 gms protein. PO intake encouraged. Agree with diet orders. Monitor intake, wt, labs. Follow up in 7 days.
[2022-09-08] MEDS: POTASSIUM CHLORIDE 20 MEQ TABLET 40 MEQ PO (14:32)
[2022-09-08] MEDS: POTASSIUM CHLORIDE INJ 40 MEQ in SODIUM CHLORIDE 0.9% IV 500 ML 130 MEQ IVPB (14:32)
[2022-09-08 16:08] LABS: Vancomycin Trough 16.9 ug/mL (10.0-20.0)
--- NOTE | 2022-09-08 17:31 | PM.IMPN ---
Progress Note: A&P Assessment and Plan (1) Pneumonia: Qualifiers: Laterality: left Lung location: unspecified part of lung Pneumonia type: due to unspecified organism Qualified Code(s): J18.9 - Pneumonia, unspecified organism Code(s): J18.9 - Pneumonia, unspecified organism Status: Acute (2) Acute hypoxemic respiratory failure: Code(s): J96.01 - Acute respiratory failure with hypoxia Status: Acute (3) COPD exacerbation: Code(s): J44.1 - Chronic obstructive pulmonary disease with (acute) exacerbation Status: Acute (4) Atrial fibrillation: Qualifiers: Atrial fibrillation type: paroxysmal Qualified Code(s): I48.0 - Paroxysmal atrial fibrillation Code(s): I48.91 - Unspecified atrial fibrillation Status: Acute (5) Hypertension: Code(s): I10 - Essential (primary) hypertension Status: Acute (6) Atrial fibrillation: Qualifiers: Atrial fibrillation type: unspecified Qualified Code(s): I48.91 - Unspecified atrial fibrillation Code(s): I48.91 - Unspecified atrial fibrillation Status: Acute (7) UTI (urinary tract infection): Code(s): N39.0 - Urinary tract infection, site not specified Status: Acute (8) Hypokalemia: Code(s): E87.6 - Hypokalemia Status: Acute (9) Severe protein-calorie malnutrition: Code(s): E43 - Unspecified severe protein-calorie malnutrition Status: Acute Plan (1) Pneumonia: ?Qualifiers: ?Laterality:?left??Lung location:?unspecified part of lung??Pneumonia type:?due to unspecified organism? Qualified Code(s):?J18.9 - Pneumonia, unspecified organism ?Code(s): J18.9 - Pneumonia, unspecified organism ?Status:?Acute ?Assessment and Plan: IV antibiotics Repeated CT scan shows consultation has resolved om 1/ Appreciate pulmonary input (2) Atrial fibrillation: ?Qualifiers: ?Atrial fibrillation type:?paroxysmal? Qualified Code(s):?I48.0 - Paroxysmal atrial fibrillation ?Code(s): I48.91 - Unspecified atrial fibrillation ?Status:?Acute Rate is controlled Continue Cardizem 120 mg daily p.o. Xarelto 15 mg q.h.s.. ?Assessment and Plan: Rates controlled.? Continue home meds (3) Hypercholesterolemia: ?Code(s): E78.00 - Pure hypercholesterolemia, unspecified ?Status:?Acute (4) Hypertension: ?Code(s): I10 - Essential (primary) hypertension ?Status:?Acute (5) Diastolic heart failure: ?Code(s): Compensated I50.30 - Unspecified diastolic (congestive) heart failure ?Status:?Acute ?Assessment and Plan: Compensated (6) COPD (chronic obstructive pulmonary disease): ?Code(s): J44.9 - Chronic obstructive pulmonary disease, unspecified ?Status:?Acute COPD exacerbation Resulting from pneumonia Continue levalbuterol nebulizer, Monitor.? Most of her pulmonary issues are from pneumonia. ?Patient states she continues to slowly improve. . Subjective Date/time seen: 09/08/22 17:31 Saw his outpatient. The patient feels dyspnea is improving, has a mild cough, denies chest pain, abdominal pain, nausea vomiting diarrhea. Patient is afebrile, hemodynamically stable Exam Narrative: GENERAL: Pleasant, in no acute distress. Well-nourished. - EYES: EOMI. Anicteric. - HENT: Moist mucous membranes. - LUNGS: Decreased air entry bilateral, scattered wheezing - CARDIOVASCULAR: Regular rate and rhythm. No murmur. No JVD. - ABDOMEN: Soft, non-tender and non-distended. No palpable masses. - EXTREMITIES: No edema. Peripheral pulses 2+. Non-tender. - NEUROLOGIC: No focal neurological deficits. CN II-XII grossly intact. - PSYCHIATRIC: Awake, Alert and oriented x 3. Appropriate mood and affect. - SKIN: No rashes or lesions. Warm. - LYMPH: No cervical lymphadenopathy. Objective Data Vital Signs Vital Signs: Vital Signs - 24 hr 09/07/22 18:55 09/07/22 19:02 09/07/22 19:04 Temperat
[2022-09-08] MEDS: RIVAROXABAN 15 MG TABLET PO (17:49)
[2022-09-08] MEDS: SOTALOL HCL 80 MG TABLET PO (20:06)
[2022-09-08] MEDS: PRAVASTATIN SODIUM 20 MG TABLET PO (20:06)
[2022-09-09] VITALS (17 sets, daily range): BP systolic 111–133; BP diastolic 59–62; PULSE 69–82; RESP 20–22; TEMP 36.5–37; O2SAT 85–93
[2022-09-09] MEDS: LEVALBUTEROL NEB 1.25 MG/3 ML 0.63 MG INHALATION (05:52)
[2022-09-09 07:31] LABS: Hematocrit 38.4 % (37.0-47.0); Hemoglobin 12.1 g/dL (12.0-15.0); Mean Corpuscular HGB Conc 31.5 g/dl (32-36); Mean Corpuscular Hemoglobin 30.4 pg (26-34); Mean Corpuscular Volume 96.5 fl (80-100); Mean Platelet Volume 9.5 fl (7.4-10.4); Platelet Count Result 291 k/mm3 (150-375); Red Blood Count 3.98 M/mm3 (4.2-5.4); Red Cell Distribution Width 12.9 % (11.5-14.5); White Blood Count 13.9 K/mm3 (4.5-10.0)
[2022-09-09 07:39] LABS: Anion Gap 1 mmol/L (8-16); Blood Urea Nitrogen 11 mg/dL (7-17); Calcium 8.3 mg/dL (8.4-10.2); Carbon Dioxide 37 mmol/L (22-30); Chloride 104 mmol/L (98-107); Estimated CRCL calculation 46 ml/min; Estimated Glomerular Filt Rate > 60; Glucose 109 mg/dL (65-110); Potassium 3.8 mmol/L (3.4-5.0); Sodium 142 mmol/L (137-145)
[2022-09-09] MEDS: SOTALOL HCL 40 MG TABLET PO (08:18)
[2022-09-09] MEDS: ACETAMINOPHEN 325 MG TABLET 650 MG PO (08:20)
[2022-09-09] MEDS: ALPRAZolam (*CRX) 0.25 MG TABLET PO (08:20)
[2022-09-09] MEDS: MAGNESIUM OXIDE 400 MG TABLET PO (08:20)
[2022-09-09] MEDS: MIRABEGRON 25 MG ER TABLET PO (08:20)
[2022-09-09] MEDS: guaiFENesin 12 HR 600 MG TABCR PO (08:20)
[2022-09-09] MEDS: MICONAZOLE NITRATE 2% CREAM 30 GM TUBE 1 APPLIC TOPICAL (08:21)
[2022-09-09] MEDS: FLUTICASONE/UMECLIDIN/VILANTER 100-62.5-25 MCG ELLIPTA 1 PUFF INHALATION (08:51)
[2022-09-09] MEDS: LEVALBUTEROL HFA (*SP) 15 GM INHALER 2 PUFF INHALATION ×2 (08:57→12:53)
--- NOTE | 2022-09-09 12:09 | PM.PNPUL ---
Progress Note: A&P Assessment and Plan (1) Pneumonia: Qualifiers: Laterality: left Lung location: unspecified part of lung Pneumonia type: due to unspecified organism Qualified Code(s): J18.9 - Pneumonia, unspecified organism Code(s): J18.9 - Pneumonia, unspecified organism Status: Acute Assessment and Plan: 09/05/2022 Patient with left upper and lingula pneumonia. She received cefepime from 08/30 through 09/02. She has been on Levaquin since 08/30 (day 7) and imipenem and vancomycin since 09/02 (both day 4). She is afebrile. Her leukocytosis is improved From a peak of 41.6 to 20.8 today, she still has green phlegm and her chest x-ray is unchanged compared with 09/02/2022. Blood cultures are negative, MRSA swab is negative. Influenza in COVID RT PCR study negative, urine Legionella negative, urine pneumococcal antigen is pending. 09/06/2021. Patient states she continues to slowly improve. She states she has 70% back to her baseline. She has left chest discomfort, the cough is improved and her sputum is now light green. Her saturations on 2 L nasal cannula are 96%. Her white blood cell count is 13.7. She remains weak with dyspnea on exertion walking to the bathroom. Will continue levaquin, day 8, imipenem and vancomycin both day 5. Aggressive OT and PT for ambulation. 09/07/2022: patient states she is a little better than yesterday. Her phlegm continues to clear, she has no wheezing. Saturations on 2 L were 96%. Saturations on room air decreased to 90% and the patient felt short of breath and I increased her to 1 L and her saturations were 92%. Patient has been walking in the room. Will continue levaquin, day 9, imipenem and vancomycin both day 6. Aggressive OT and PT for ambulation. I will repeat it chest x-ray on 09/08/2022. 09/08/2022 patient continues to slowly improve. She was on 1 L nasal cannula saturations 92%. Her white blood cell count is 13.3, creatinine is 0.5. Chest x-ray today shows continued left mid and lower lung infiltrates with minimal change from 09/05/22. CT scan later in the day demonstrated severe panlobular emphysema, improved left upper lobe infiltrate continued infiltrate lingula with consolidation and evidence of pre-existing bullae versus necrosis. There is a small left pleural effusion. 09/09/2022 Patient continues to slowly improve. Patient had an overnight oximetry on room air demonstrating an average saturation of 93, lowest saturation 84%, time with saturation less than or equal to 88% was 12 minutes. Patient's white blood cell count is 13.9, creatinine is 0.5. No wheezing on exam. Overall patient has improved clinically her leukocytosis has improved but she remains severely debilitated with difficulty coughing and now has a CT scan with some areas of improvement but some areas of continued consolidation And possible necrosis. given these new cavitary lesions I will treat this as a potential lung abscess with a total of 6 weeks of antibiotics. From a pulmonary perspective patient is ready to be discharged on these pulmonary medicines Levaquin 500 mg p.o. q.day times 10 more days for total of 21 days. Augmentin 875-125 at 1 tablet p.o. b.i.d. times 34 days for a total of 42 days total antibiotics trelegy 100 mg PO BID guaifenesin liquid which the patient has at home and she states works better for her than guaifenesin pills. Acapella flutter valve Q 1-2 hours while awake to aid in sputum clearance 2 L nasal cannula at night. Oxygen at rest and with ambulation perform a home O2 assessment which I have ordered. patient should have a repeat chest x-ray in approximately 17 days and follow up in Pulmonary Clinic in 3 weeks. I have given her a business card and informed our connection worker Discussed was Dr. Abbasi, call with questions (2) COPD (chronic obstructive pulmonary disease): Code(s): J44.9 - Chronic obstructive pulmonary disease, uns
--- NOTE | 2022-09-09 13:45 | PM.DS ---
DS: Admitting Diagnosis Discharge Date 09/09/22 Admitting Diagnosis COPD exacerbation DS: Discharge Diagnosis Discharge Diagnosis (1) Pneumonia: Qualifiers: Laterality: left Lung location: unspecified part of lung Pneumonia type: due to unspecified organism Qualified Code(s): J18.9 - Pneumonia, unspecified organism Code(s): J18.9 - Pneumonia, unspecified organism Status: Acute Assessment and Plan: received IV antibiotics change to of Levoquin 500 mg daily p.o. for 10 more days, [id number] mg bid p.o. for 34 days per pulmonary's recommendation (2) Acute hypoxemic respiratory failure: Code(s): J96.01 - Acute respiratory failure with hypoxia Status: Acute (3) COPD exacerbation: Code(s): J44.1 - Chronic obstructive pulmonary disease with (acute) exacerbation Status: Acute (4) Atrial fibrillation: Qualifiers: Atrial fibrillation type: paroxysmal Qualified Code(s): I48.0 - Paroxysmal atrial fibrillation Code(s): I48.91 - Unspecified atrial fibrillation Status: Acute (5) Hypertension: Code(s): I10 - Essential (primary) hypertension Status: Acute (6) UTI (urinary tract infection): Code(s): N39.0 - Urinary tract infection, site not specified Status: Acute (7) Hypokalemia: Code(s): E87.6 - Hypokalemia Status: Acute (8) Severe protein-calorie malnutrition: Code(s): E43 - Unspecified severe protein-calorie malnutrition Status: Acute Plan (1) Pneumonia: ?Qualifiers: ?Laterality:?left??Lung location:?unspecified part of lung??Pneumonia type:?due to unspecified organism? Qualified Code(s):?J18.9 - Pneumonia, unspecified organism ?Code(s): J18.9 - Pneumonia, unspecified organism ?Status:?Acute ?Assessment and Plan: IV antibiotics Repeated CT scan shows consultation has resolved om 09/08 Appreciate pulmonary input (2) Atrial fibrillation: ?Qualifiers: ?Atrial fibrillation type:?paroxysmal? Qualified Code(s):?I48.0 - Paroxysmal atrial fibrillation ?Code(s): I48.91 - Unspecified atrial fibrillation ?Status:?Acute Rate is controlled Continue Cardizem 120 mg daily p.o. Xarelto 15 mg q.h.s.. ?Assessment and Plan: Rates controlled.? Continue home meds (3) Hypercholesterolemia: ?Code(s): E78.00 - Pure hypercholesterolemia, unspecified ?Status:?Acute (4) Hypertension: ?Code(s): I10 - Essential (primary) hypertension ?Status:?Acute (5) Diastolic heart failure: ?Code(s): Compensated I50.30 - Unspecified diastolic (congestive) heart failure ?Status:?Acute ?Assessment and Plan: Compensated (6) COPD (chronic obstructive pulmonary disease): ?Code(s): J44.9 - Chronic obstructive pulmonary disease, unspecified ?Status:?Acute COPD exacerbation Resulting from pneumonia Continue levalbuterol nebulizer, Monitor.? Most of her pulmonary issues are from pneumonia. ?Patient states she continues to slowly improve. . DS: Summary Hospital Course Reason for hospitalization: COPD exacerbation, pneumonia Hospital Course: This is a 72-year-old female that presents to the emergency department for worsening dyspnea over the last week.? Reports she finished a round of steroids prescribed by her tool supervisor with little relief.? Today she had worsening shortness of breath and noted that her pulse oximeter was reading in the 80s.? She has a dry cough.? Possible subjective fevers.? Reports mild tightness in her chest like she cannot get a deep breath.? She has been using her nebulizer treatment every 4 hours.? Reports history of atrial fibrillation and that she can feel herself going in and out of A. fib.? Time Spent with Patient Time attestation: Total time spent providing and/or coordinating discharge services: Exam Narrative: GENERAL: Pleasant, in no acute distress. Well-nourished. - EYES: EOMI. Anicteri
--- NOTE | 2022-09-09 15:46 | HOMEO2EVAL ---
Evaluation was performed at [facility] Home Oxygen Evaluation RC: Home Oxygen (O2) Evaluation Start: 09/09/22 10:14 Freq: ONCE Status: Active Protocol: RPE Activity Type Activity Date Activity User E-sign Co-sign Detail Recorded Client Recorded Date Recorded By Document 09/09/22 14:00 JC [email or web address] 09/09/22 15:46 JC Document 09/09/22 14:01 JC [email or web address] 09/09/22 15:46 JC Document 09/09/22 14:02 [id number] [email or web address] 09/09/22 15:46 JC Document 09/09/22 14:15 [email or web address] [email or web address] 09/09/22 15:46 JC 09/09/22 09/09/22 09/09/22 14:00 14:01 14:02 Home O2 Evaluation [Oxygen] -Test Phase Resting Resting Exercise -Oxygen Delivery Room Air Nasal Cannula Nasal Cannula -Oxygen Flow Rate (L/min) 1 1 [Pulse Oximetry] -Pulse Oximetry (90-100 %) 87 L 93 90 [Comments] -Home Oxygen Evaluation Comments PT REQUIRES 1 LITER O2 WITH REST AND WITH EXERTION/ ACTIVITY [Charges] -Treatment Charges O2 Evaluation - Inpatient 09/09/22 14:15 Home O2 Evaluation [Oxygen] -Test Phase Resting -Oxygen Delivery Nasal Cannula -Oxygen Flow Rate (L/min) 1 [Pulse Oximetry] -Pulse Oximetry (90-100 %) 93 [Comments] -Home Oxygen Evaluation Comments [Charges] -Treatment Charges
--- NOTE | 2022-09-09 16:38 | PCRCNOTE ---
HOME O2 EVAL DONE, SET UP WITH IV RESP CARE. TANK IN ROOM FOR TRANSPORT HOME UPON D/C. NEEDS 1L REST AND ACTIVITY
[2022-09-09] MEDS: RIVAROXABAN 15 MG TABLET PO (16:58)
[2022-09-09] MEDS: levoFLOXacin 500 MG TABLET PO (16:59)
--- NOTE | 2022-09-10 09:32 | PC.NURSE ---
Patient's daughter called stating that the new medications were not sent to the pharmacy on file. This nurse electronically submitted the Levaquin and was unable to transmit the Augmentin. This nurse called the [facility] and verbally verified the Augmentin order. Patient's daughter made aware of orders sent to pharmacy.
== END 2022-09-09 18:40 | disposition home health service (06) | DRG 193 ==
LOC: ANHED 08-30 06:06 → ANH3MEDSUR 08-30 06:34
PROVIDERS: Chiropractor; Internal Medicine Pulmonary Disease; Physician Assistant; Admitting Provider Internal Medicine; Emergency Provider Preventive Medicine Aerospace Medicine; PCP Nurse Practitioner Family; Visit Provider Hospitalist
DX: J18.9 Pneumonia, unspecified organism (principal); E43 Unspecified severe protein-calorie malnutrition; J96.01 Acute respiratory failure with hypoxia; I50.30 Unspecified diastolic (congestive) heart failure; I48.20 Chronic atrial fibrillation, unspecified; Z68.1 Body mass index [BMI] 19.9 or less, adult; J43.1 Panlobular emphysema; I11.0 Hypertensive heart disease with heart failure; E87.6 Hypokalemia; D75.1 Secondary polycythemia; E78.00 Pure hypercholesterolemia, unspecified; R91.1 Solitary pulmonary nodule; H40.9 Unspecified glaucoma; Z20.822 Contact with and (suspected) exposure to COVID-19; Z79.01 Long term (current) use of anticoagulants; Z87.891 Personal history of nicotine dependence; Z87.442 Personal history of urinary calculi
CPT/HCPCS: 36415; 36600; 71045; 71046; 71250; 71275; 80048; 80053; 80202; 82375; 82565; 82805; 82948; 83036; 83050; 83605; 84484; 85025; 85027; 85380; 85610; 85730; 86140; 87040; 87081; 87449; 87636; 87899; 93005; 94618; 94640; 94762; 96365; 96366; 96367; 96375; 97110; 97161; 97165; 97530; 97535; 99285; A9270; G0378; J0131; J0692; J0743; J1956; J2930; J3370; J3480; J7040; Q9967

== ENCOUNTER 2022-09-24 06:08 | Inpatient (IN) | payer OTHER, SELFPAY ==
[2022-09-24] VITALS (25 sets, daily range): BP systolic 111–148; BP diastolic 63–87; PULSE 63–122; RESP 16–24; TEMP 36.2–37.2; O2SAT 93–98; BMI 15.6
--- NOTE | ~2022-09-24 | MR_ITS ---
EXAMINATION: MR brain/brain stem wo/w con DATE: 09/25/2022 12:43 INDICATION: Right leg weakness. TECHNIQUE: Magnetic resonance imaging (MRI) of the brain and brainstem was performed without and with 7 mL MultiHance intravenous contrast. COMPARISON: Head CT 09/24/2022 FINDINGS: There are scattered areas of nonspecific increased T2-weighted signal intensity in the cere bral white matter. There is no intracranial hemorrhage, acute infarction, or abnormal intracranial ma ss lesion. The ventricles are normal in size. The paranasal sinuses are clear. The orbits are normal. There are bilateral mastoid effusions. IMPRESSION: 1. Moderate nonspecific cerebral white matter disease, which likely represents chronic small vessel i schemic disease. Reviewed, dictated and finalized at location A. LER TECHNICIAN IMPRESSION: 1. Moderate nonspecific cerebral white matter disease, which likely represents chronic small vessel ischemic disease.
--- NOTE | ~2022-09-24 | XR_ITS ---
EXAMINATION: XR chest 2V DATE: 09/24/2022 06:36 INDICATION: Chest pain. TECHNIQUE: Frontal and lateral views of the chest were obtained. COMPARISON: Chest single view 09/08/2022, chest CT 09/08/2022 FINDINGS: The lungs are hyperexpanded with lucencies, consistent with emphysema. There is mild scarri ng at the lung apices. There are airspace opacities in left upper lobe. No pleural effusion or pneumo thorax. The heart size is normal. IMPRESSION: 1. Left upper lobe airspace opacities with interval improvement, consistent with pneumonia. 2. Emphysema. Reviewed, dictated and finalized at location A. EN PRINTING PRESS OPERATOR IMPRESSION: 1. Left upper lobe airspace opacities with interval improvement, consistent wit h pneumonia. 2. Emphysema.
--- NOTE | ~2022-09-24 | CT_ITS ---
EXAMINATION: CTA chest PE protocol DATE: 09/24/2022 08:48 INDICATION: Shortness of breath. Right chest pressure. TECHNIQUE: Computed tomography angiography (CTA) of the chest was performed with 100 mL Omnipaque-350 intravenous contrast timed to evaluate the pulmonary arteries. Coronal maximum intensity projection 3D-reconstructions were created by the technologist. Automated exposure control and iterative reconst ruction technique were employed. The dose-length product was 154.95 mGy-cm. COMPARISON: Chest CT 09/08/2022, 12/14/21, PET/CT 03/01/17 FINDINGS: There is mild scarring at the lung apices. There is severe emphysema. There is mild atelect asis bilaterally. There are airspace opacities in left upper lobe with volume loss and air bronchogra ms. There are mild airspace opacities in anteromedial basal segment left lower lobe. These finds are consistent with pneumonia. There is an 8 mm nodule in superior segment left lower lobe, stable from , likely benign. There is an 8 mm nodule in left lower lobe, stable from 12/14/2021, probably be nign. There is mucous plugging in the right-sided bronchi. There is a small left pleural effusion. Th e heart size is normal. There are coronary artery calcifications. No pericardial effusion. The centra l pulmonary arteries are enlarged, consistent with pulmonary arterial hypertension. There is no pulmo nary embolus. Calcifications in the spleen are consistent with old granulomatous disease. There is mi ld thoracic spondylosis and severe lumbar spondylosis. IMPRESSION: 1. No pulmonary embolus. 2. Left-sided pneumonia predominantly involving left upper lobe. 3. Right-sided mucous plugging. 4. Severe emphysema. 5. Small left pleural effusion. 6. Stable 8 mm pulmonary nodule, probably benign. Noncontrast low-dose chest CT is recommended in 6 m [facility]. Reviewed, dictated and finalized at location A. ING MACHINE OPERATOR IMPRESSION: 1. No pulmonary embolus. 2. Left-sided pneumonia predominantly involving left upper lobe. 3. Right-sided mucous plugging. 4. Severe emphysema. 5. Small left pleural effusion. 6. Stable 8 mm pulmonary nodule, probably benign. Noncontrast low-dose chest CT is recommended in 6 months.
--- NOTE | ~2022-09-24 | XR_ITS ---
EXAMINATION: XR chest 1V portable DATE: 09/27/2022 10:13 INDICATION: Pneumonia. TECHNIQUE: A single frontal view of the chest was obtained. COMPARISON: Chest 2 views 09/24/2022, chest CT 09/24/2022 FINDINGS: The lungs are hyperexpanded with lucencies, consistent with emphysema. There is mild scarri ng at the lung apices. There are airspace opacities in left upper lobe. No pleural effusion or pneumo thorax. The heart size is normal. IMPRESSION: 1. Stable airspace opacities in left upper lobe, consistent with pneumonia. 2. Emphysema. Reviewed, dictated and finalized at location A. RVISOR BURLING AND JOINING
--- NOTE | ~2022-09-24 | XR_ITS ---
EXAMINATION: XR chest 1V portable DATE: 09/30/2022 12:07 INDICATION: Sudden increase in shortness of breath. TECHNIQUE: A single frontal view of the chest was obtained. COMPARISON: Chest single view 09/29/2022 FINDINGS: The lungs are hyperexpanded with lucencies, consistent with emphysema. There is mild scarri ng at the lung apices. There are airspace opacities in left upper lobe. No pleural effusion or pneumo thorax without size is normal. IMPRESSION: 1. Airspace opacities in left upper lobe with slight improvement, consistent with pneumonia. 2. Emphysema. Reviewed, dictated and finalized at location A. NING AND DEVELOPMENT ASSOCIATE IMPRESSION: 1. Airspace opacities in left upper lobe with slight improvement, consistent wi th pneumonia. 2. Emphysema.
--- NOTE | ~2022-09-24 | XR_ITS ---
XR chest 1V portable 10/02/2022 06:35 Indication: Pneumonia. Atelectasis. Procedure: AP portable chest Comparison: Comparison to multiple prior studies sequentially, with oldest reviewed study dated 09/24. Findings: Progression of airspace consolidation left mid thorax. No significant effusion. No pneumoth orax. The lungs are hyperinflated which is consistent with, but not diagnostic of chronic obstructive pulmonary disease. Impression: 1: Interval progression of airspace consolidation left mid thorax, consistent with pneumonia. Reviewed, dictated and finalized at location A. GENCY MEDICAL TECHNICIAN BASIC Impression: 1: Interval progression of airspace consolidation left mid thorax, consistent w ith pneumonia.
--- NOTE | ~2022-09-24 | XR_ITS ---
XR chest 1V portable 09/29/2022 14:31 Indication: Shortness of breath. Pneumonia. Procedure: AP portable chest Comparison: Comparison to multiple prior studies sequentially, with oldest reviewed study dated 10/2022. Findings: Stable airspace disease left mid thorax allowing for differences in technique. Mildly eleva odilia left diaphragm. Heart size normal. There are emphysematous changes. No significant effusion. Gene ralized osteopenia. No pneumothorax. Impression: 1: Stable pneumonia left mid thorax allowing for differences of technique. No significant change dati ng back to 09/24/2022. Reviewed, dictated and finalized at location A. CTION MOLDER Impression: 1: Stable pneumonia left mid thorax allowing for differences of technique. No s ignificant change dating back to 09/24/2022.
--- NOTE | ~2022-09-24 | XR_ITS ---
EXAMINATION: XR chest 1V portable DATE: 10/03/2022 06:05 INDICATION: Pneumonia. TECHNIQUE: A single frontal view of the chest was obtained. COMPARISON: Chest single view 10/02/2022 FINDINGS: The lungs are hyperexpanded with lucencies, consistent with emphysema. There are airspace o pacities in left upper lobe. No pleural effusion or pneumothorax. The heart size is normal. IMPRESSION: 1. Stable airspace opacities in left upper lobe, consistent with pneumonia. 2. Emphysema. Reviewed, dictated and finalized at location A. OMER SERVICE CONSULTANT
--- NOTE | ~2022-09-24 | CT_ITS ---
EXAMINATION: CTA chest PE protocol DATE: 09/29/2022 16:34 INDICATION: Shortness of breath TECHNIQUE: Computed tomography (CT) pulmonary angiogram of the chest was performed with 75 mL Omnipaq ue-350 intravenous contrast. Additional 3D reconstructions utilizing coronal maximum intensity projec tion (MIP) were performed. Automated exposure control and iterative reconstruction technique were emp loyed. The dose-length product was 151.35 mGy-cm. COMPARISON: 09/24/2022 and 12/14/2021 FINDINGS: Excellent contrast opacification of the pulmonary arteries. There is mild streak artifact from dense contrast in the superior vena cava and right atrium. No significant motion artifact yielding diagnost ic left study which demonstrates no pulmonary embolism. Mild enlargement of the central pulmonary art eries consistent with pulmonary arterial hypertension. Severe emphysema with moderate chronic partial ly calcified biapical pleural-parenchymal scarring. No interval change in consolidation with volume l oss and air bronchograms in the anterior segment of the left upper lobe and the lingula. Also unchang ed is additional reticular and minimal patchy airspace opacities in the left lower lobe along the lef t hemidiaphragm. Again seen are a pulmonary nodules in the superior and posterior basilar segments of the left lower lobe unchanged since 12/14/21 and which along with a couple centrally calcified nodule s in the left upper lobe and lingula which are now obscured by the consolidation likely sequela of ol d granulomatous disease. Small posterior layering left pleural effusion. Small amount of mucus in the trachea and right mainstem bronchus. There is complete opacification of the main right lower lobar a nd more peripheral bronchi consistent with mucous plugging as it is new since 08/30/2022 at which maria fernanda e there were no endobronchial lesions. Heart size is normal. Atherosclerotic coronary artery calcific ations. No pericardial effusion. Thoracic aorta is normal in caliber. No pathologically enlarged thor acic lymphadenopathy. Is reflux of contrast into the inferior vena cava and hepatic veins consistent with tricuspid regurgitation. Couple splenic calcific lesions consistent with old granulomatous disea se. Multiple tiny punctate calcification is at the left kidney consistent with renal stones and/or re nal medullary nephrocalcinosis. Mild thoracic and severe upper lumbar spondylosis. IMPRESSION: 1. No pulmonary embolism. 2. Unchanged consolidation in the left upper lobe and lingula and minimal lung disease at the basilar left lower lobe consistent with ongoing multifocal pneumonia. 3. Unchanged mucous plugging involving the bronchi throughout the right lower lobe. 4. Severe emphysema. 5. Small left pleural effusion. 6. Unchanged 8 mm pulmonary nodules in the left lower lobe likely sequela of old granulomatous diseas e but would consider 6-12 month follow-up. Reviewed, dictated and finalized at location L. S ACTIVITY MANAGER IMPRESSION: 1. No pulmonary embolism. 2. Unchanged consolidation in the left upper lobe and lingula and minimal lung disease at the basilar left lower lobe consistent with ongoing multifocal pneum onia. 3. Unchanged mucous plugging involving the bronchi throughout the right lower l obe. 4. Severe emphysema. 5. Small left pleural effusion. 6. Unchanged 8 mm pulmonary nodules in the left lower lobe likely sequela of ol d granulomatous disease but would consider 6-12 month follow-up.
--- NOTE | ~2022-09-24 | CT_ITS ---
EXAMINATION: CT brain wo con DATE: 09/24/2022 08:49 INDICATION: Right leg weakness. TECHNIQUE: Computed tomography (CT) of the head was performed without intravenous contrast. The mA wa s adjusted according to patient size. Iterative reconstruction technique was employed. The dose-lengt h product was 605.33 mGy-cm. COMPARISON: None FINDINGS: There are scattered areas of low attenuation in the cerebral white matter. There is no intr acranial hemorrhage, acute infarction, or abnormal intracranial mass lesion. The ventricles are anay l in size. The orbits are normal. There is mild mucosal thickening in the ethmoid sinuses. There are small bilateral mastoid effusions. IMPRESSION: 1. Moderate nonspecific cerebral white matter disease, which likely represents chronic small vessel i schemic disease. Reviewed, dictated and finalized at location A. ERENCE TRANSLATOR IMPRESSION: 1. Moderate nonspecific cerebral white matter disease, which likely represents chronic small vessel ischemic disease.
--- NOTE | 2022-09-24 06:10 | ECG_ITS ---
Measurements Intervals [place] Rate: 123 P: CA: 0 QRS: 64 QRSD: 90 T: 91 QT: 337 QTc: 482 Interpretive Statements ATRIAL FIBRILLATION WITH RAPID VENTRICULAR RESPONSE BORDERLINE ST-T WAVE ABNORMALITY- ANTEROLAT/HIGH LAT LEADS BASELINE ARTIFACT- I, II, III, AVR, AVL, AVF, V1, V4-V6 ABNORMAL ECG COMPARED TO ECG 08/30/2022 00:17:45 ATRIAL FIBRILLATION NOW PRESENT ST (T WAVE) DEVIATION NOW PRESENT Electronically Signed On 09-24-2022 10:02:55 [employer] ADMISS[employer] REPRESENTATIVE by Robby Mcgee D.O.
[2022-09-24 07:25] LABS: Alanine Aminotransferase 14 U/L (6-35); Albumin Level 3.1 g/dL (3.5-5.1); Alkaline Phosphatase 81 U/L (38-126); Anion Gap 2 mmol/L (8-16); Aspartate Amino Transferase 24 U/L (14-36); Blood Urea Nitrogen 18 mg/dL (7-17); Calcium 8.5 mg/dL (8.4-10.2); Carbon Dioxide 36 mmol/L (22-30); Chloride 100 mmol/L (98-107); Estimated CRCL calculation 32 ml/min; Estimated Glomerular Filt Rate > 60; Glucose 129 mg/dL (65-110); Lipase 35 U/L (23-300); Sodium 138 mmol/L (137-145)
[2022-09-24 07:38] LABS: Basophils Percent Auto 0.3 % (0.2-1.2); Eosinophils Percent Auto 0.2 % (0-4.4); Hematocrit 38.9 % (37.0-47.0); Immature Granulocyte Absolute 0.04 K/mm3 (0.00-0.031); Immature Granulocyte Percent A 0.4 % (0-0.5); Lymphocytes Absolute Auto 1.81 K/mm3 (0.9-3.2); Lymphocytes Percent Auto 18.8 % (18.3-44.2); Mean Corpuscular HGB Conc 30.8 g/dl (32-36); Mean Corpuscular Hemoglobin 30.8 pg (26-34); Monocytes Absolute Auto 0.8 K/mm3 (0.1-0.6); Monocytes Percent Auto 7.8 % (2.6-8.5); Neutrophils Percent Auto 72.5 % (45.5-73.1); Platelet Count Result 265 k/mm3 (150-375); Red Blood Count 3.89 M/mm3 (4.2-5.4); Red Cell Distribution Width 14.6 % (11.5-14.5); White Blood Count 9.6 K/mm3 (4.5-10.0)
[2022-09-24 07:42] LABS: Troponin I 0.123 ng/mL (0.000-0.034)
[2022-09-24 07:46] LABS: INR 2.7; Prothrombin Time 27.6 Seconds (11.1-14.7)
[2022-09-24 07:47] LABS: Partial Thromboplastin Time 33.3 SECONDS (22.3-36.8)
[2022-09-24] MEDS: POTASSIUM CHLORIDE 20 MEQ TABLET 40 MEQ PO (08:23)
[2022-09-24 08:51] LABS: Influenza A QL RT-PCR Negative (Negative); Influenza B QL RT-PCR Negative (Negative); SARS-CoV-2 RNA PCR Negative
[2022-09-24] MEDS: MIRABEGRON 25 MG ER TABLET PO (09:32)
[2022-09-24] MEDS: SOTALOL HCL 40 MG TABLET PO (09:34)
--- NOTE | 2022-09-24 09:54 | ED.CHESTPAIN ---
HPI - Chest Pain General Chief Complaint: Chest Pain Stated Complaint: Chest pressure with shortness of breath Time Seen by Provider: 09/24/22 07:10 History of Present Illness HPI narrative: Patient is a 72-year-old female who presents ER with chest pain and shortness of breath. Chest pain is central pressure radiating to her back. Cannot describe alleviating factors. Patient notes that she is also having increased shortness of breath. Recently hospitalized for pneumonia. Since discharge she has been on oxygen 1 L at rest and 2 L with exertion however when she is on 1 L she only sats around 86% according to family so she is on 2 L at all times and then 3 L with exertion. Patient has had new edema develop in her bilateral lower extremities. She also reports over the last 2 days she has developed weakness in her right leg where she cannot lift it up off the bed. No numbness or tingling in her legs, no facial droop, no upper extremity weakness. She is on Xarelto. Patient was discharged on Levaquin and Augmentin, she has completed Levaquin. Related Data Home Medications Medication Instructions Recorded Confirmed diltiazem HCl 120 mg 120 mg PO DAILY 01/16/22 09/24/22 capsule,extended release 24 hr ergocalciferol (vitamin D2) 1,250 1,250 mcg PO [id number] 01/16/22 09/24/22 mcg (50,000 unit) capsule fluticasone fur. 100 mcg-umeclid 1 inh inhalation DAILY 01/16/22 09/24/22 62.5 mcg-vilant 25 mcg inhalat.powder (Trelegy Ellipta) levalbuterol tartrate 45 2 puff inhalation Q4H PRN 01/16/22 09/24/22 mcg/actuation aerosol inhaler Shortness Of Breath pravastatin 20 mg tablet 20 mg PO HS 01/16/22 09/24/22 rivaroxaban 15 mg tablet (Xarelto) 15 mg PO HS 01/16/22 09/24/22 magnesium oxide 400 mg (241.3 mg 400 mg PO DAILY 06/08/22 09/24/22 magnesium) tablet sotalol 80 mg tablet 40 mg PO DAILY 08/30/22 09/24/22 sotalol 80 mg tablet 80 mg PO HS 08/30/22 09/24/22 acetaminophen 500 mg tablet 500 mg PO TID PRN Pain 09/24/22 09/24/22 Allergies Allergy/AdvReac Type Severity Reaction Status Date / Time morphine Allergy Unknown ITCHING Verified 09/24/22 13:15 doxycycline AdvReac Vomiting Verified 09/24/22 13:15 Review of Systems Review of Systems: All systems reviewed & are unremarkable except as noted in HPI and below Constitutional: Constitutional: Denies chills, Reports fatigue and Denies fever(s) Cardiovascular: Cardiovascular: Reports chest pain, Denies rapid heart rate and Denies radiating jaw, neck or arm pain Respiratory: Respiratory: Denies cough, Reports dyspnea and Denies wheezing Musculoskeletal: Musculoskeletal: Denies back pain, Denies arthralgias and Denies joint swelling Comments: Leg edema Neurologic: Denies syncope, Denies headache(s) and Reports focal weakness [facility] Past Medical History Medical History (Updated 09/24/22 @ 18:14 by Mitch Car MD) Atrial fibrillation COPD (chronic obstructive pulmonary disease) PFT 11/02/2021: Severe obstructive airway disease with air trapping, lung hyperinflation and significant response to bronchodilators. Severely reduced diffusion capacity Glaucoma Hypercholesterolemia Hypertension Kidney stones Polycythemia secondary to hypoxia Pulmonary nodule 7 mm left lower lobe nodule increased in size compared to prior exam 2016 with recommended follow-up CT scan in March-April Patient stated she had a PET scan which was negative. 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
[2022-09-24 10:17] LABS: NT Pro B Type Natriuretic Pept 4400 pg/mL (19.9-100)
[2022-09-24] MEDS: FUROSEMIDE INJ 40 MG/4 ML VIAL IV PUSH ×2 (10:38→21:19)
[2022-09-24 11:14] LABS: Troponin I 0.113 ng/mL (0.000-0.034)
[2022-09-24] MEDS: LORazepam INJ (*CRX) 2 MG/ML VIAL 0.5 MG IV PUSH (11:38)
--- NOTE | 2022-09-24 14:48 | PM.IMHP ---
H&P: HPI History of Present Illness Date/Time: 09/24/22 14:48 Chief Complaint: Shortness of breath Narrative: Patient is a pleasant 72-year-old female who came to the hospital complaining of shortness of breath. Most history obtained from the daughter who has medical background and with her mom right now. She noted that after being treated with antibiotics for her pneumonia which she noted that her legs started to swell up. No rash was noted patient got more short of breath. Drug use was Levaquin and she states this has happened many times in the past. Patient still continues to be short of breath and has productive cough no exposure to COVID or anybody with flu. Patient has history of atrial fibrillation and is monitored at home with home oxygen which is 2 L a day. Patient had history of smoking which she quit smoking about 2 days ago according to the daughter patient also has history of hypertension which is well controlled Review of Systems Review of Systems: No fevers chills nausea vomiting. No double vision no blurry vision. No difficulty hearing or sinus complaints. has shortness of breath no fever palpitation dizziness ankle swelling. has coughing wheezing chills. No nausea constipation diarrhea abdominal pain reflux. No urgency frequency of urination. No hematuria. No skin rash eczema. No anxiety depression difficulty sleeping. No bleeding gums enlarged glands. No muscle ache back pain joint stiffness. No loss of strength numbness headache tremor or loss of memory. [facility] Past Medical History Medical History (Updated 08/30/22 @ 10:42 by Derek Weston MD) Atrial fibrillation COPD (chronic obstructive pulmonary disease) PFT 11/02/2021: Severe obstructive airway disease with air trapping, lung hyperinflation and significant response to bronchodilators. Severely reduced diffusion capacity Glaucoma Hypercholesterolemia Hypertension Kidney stones Polycythemia secondary to hypoxia Pulmonary nodule 7 mm left lower lobe nodule increased in size compared to prior exam 2016 with recommended follow-up CT scan in March-April Patient stated she had a PET scan which was negative. She stated she was told that it was granulomatosis Surgical History Surgical History H/O cystoscopy History of 2 sections History of extraction of renal calculus Family History Family History Father Acute myocardial infarction Hypertension Mother Chronic obstructive pulmonary disease Sibling Chronic obstructive pulmonary disease Hypertension Pulmonary hypertension Social History Social History Social History: She reports that her daughter and 2 grand children recently moved in with her. 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 She denies any significant alcohol use or illicit substance use. Code status: Full code Surrogate decision maker: Diana (daughter) Smoking packs per day: 2 Smoking cigarettes per day: 40.0 Years smoked: 43 Smoking pack-years: 86.00 Smoking status: Former smoker Tobacco type: cigarettes Second hand tobacco smoke exposure: Yes Smoking end date: 11/02/21 Alcohol intake: never Substance use: never Substance use type: does not use Lack of Transportation: No Lack of Food: Never True Current Housing: I Have Housing Concerned About Future Housing: No Difficulty Paying Gas/Electric Bills: No Difficulty Paying for Meds: No Currently Unemployed: No Education: Decline to Answer Difficulty w/ Childcare or Family Care: No Spiritual care concerns: No Meds Home Medications and Allergies Home Medications Medication Instructions Recorded Confirmed Type diltiazem HCl 120 mg 120 mg PO DAILY 01/16/22 09/24/22 History capsule,extended r
--- NOTE | 2022-09-24 15:03 | ADMGEN ---
This patient, Sofi Zeng, was admitted to IMU Room 209-01 @ 1220; Pt awake / oriented /calm but drowsy - received ativan in ER. Monitor SR 60's BP stable ; O2 on @ l/nc. Patient/family oriented to hospital policies and general routines including ID bracelet, bed and alarms, visiting hours, pain management, procedures, bathroom and other care routines, personal items, smoking policy, room service/diet, and visiting hours. Information on how to activate the Rapid Response Team has been discussed. Patient/Family are encouraged to report perceived risks to care and to ask questions if they do not understand what they are told or what they should do.
[2022-09-24] MEDS: cefTRIAXone 2 GM in SODIUM CHLORIDE 0.9% IV 100 ML 200 ML IVPB (15:56)
[2022-09-24] MEDS: ESCITALOPRAM OXALATE 5 MG TABLET PO (16:04)
[2022-09-24] MEDS: PANTOPRAZOLE 40 MG TABLET PO (16:04)
[2022-09-24 16:19] LABS: Basophils Percent Auto 0.3 % (0.2-1.2); Eosinophils Percent Auto 0.2 % (0-4.4); Hematocrit 38.8 % (37.0-47.0); Hemoglobin 11.9 g/dL (12.0-15.0); Immature Granulocyte Absolute 0.04 K/mm3 (0.00-0.031); Immature Granulocyte Percent A 0.4 % (0-0.5); Lymphocytes Absolute Auto 1.99 K/mm3 (0.9-3.2); Lymphocytes Percent Auto 18.4 % (18.3-44.2); Mean Corpuscular HGB Conc 30.7 g/dl (32-36); Mean Corpuscular Hemoglobin 30.7 pg (26-34); Mean Corpuscular Volume 100.3 fl (80-100); Monocytes Absolute Auto 1.1 K/mm3 (0.1-0.6); Neutrophils Absolute Auto 7.7 K/mm3 (1.3-6.7); Neutrophils Percent Auto 70.7 % (45.5-73.1); Platelet Count Result 258 k/mm3 (150-375); Red Blood Count 3.87 M/mm3 (4.2-5.4); Red Cell Distribution Width 14.6 % (11.5-14.5); White Blood Count 10.8 K/mm3 (4.5-10.0)
[2022-09-24] MEDS: POTASSIUM CHLORIDE 20 MEQ TABLET.ER PO (16:28)
[2022-09-24 16:32] LABS: Alanine Aminotransferase 13 U/L (6-35); Albumin Level 2.8 g/dL (3.5-5.1); Alkaline Phosphatase 77 U/L (38-126); Anion Gap 2 mmol/L (8-16); Aspartate Amino Transferase 20 U/L (14-36); Bilirubin,Total 0.5 mg/dL (0.2-1.3); Blood Urea Nitrogen 18 mg/dL (7-17); Calcium 8.3 mg/dL (8.4-10.2); Carbon Dioxide 37 mmol/L (22-30); Chloride 103 mmol/L (98-107); Estimated CRCL calculation 32 ml/min; Estimated Glomerular Filt Rate > 60; Glucose 150 mg/dL (65-110); Potassium 3.6 mmol/L (3.4-5.0); Sodium 142 mmol/L (137-145)
[2022-09-24] MEDS: IPRATROPIUM BR 0.02% INH SOLN 0.5 MG/2.5 ML VIAL INHALATION (20:30)
[2022-09-24] MEDS: SOTALOL HCL 80 MG TABLET PO (21:20)
[2022-09-24] MEDS: RIVAROXABAN 15 MG TABLET PO (21:20)
[2022-09-24] MEDS: PRAVASTATIN SODIUM 20 MG TABLET PO (21:20)
[2022-09-25] VITALS (20 sets, daily range): BP systolic 118–139; BP diastolic 66–77; PULSE 56–80; RESP 16–22; TEMP 36.2–36.4; O2SAT 92–100
[2022-09-25] MEDS: IPRATROPIUM BR 0.02% INH SOLN 0.5 MG/2.5 ML VIAL INHALATION ×4 (02:18→21:46)
[2022-09-25] MEDS: FLUTICASONE/UMECLIDIN/VILANTER 100-62.5-25 MCG ELLIPTA 1 PUFF INHALATION (08:18)
[2022-09-25 08:28] LABS: Hematocrit 40.9 % (37.0-47.0); Hemoglobin 12.6 g/dL (12.0-15.0); Mean Corpuscular HGB Conc 30.8 g/dl (32-36); Mean Corpuscular Volume 100.7 fl (80-100); Mean Platelet Volume 9.9 fl (7.4-10.4); Platelet Count Result 247 k/mm3 (150-375); Red Blood Count 4.06 M/mm3 (4.2-5.4); Red Cell Distribution Width 14.5 % (11.5-14.5); White Blood Count 9.5 K/mm3 (4.5-10.0)
[2022-09-25 08:41] LABS: Alanine Aminotransferase 14 U/L (6-35); Albumin Level 3.3 g/dL (3.5-5.1); Alkaline Phosphatase 80 U/L (38-126); Aspartate Amino Transferase 23 U/L (14-36); Bilirubin,Total 0.7 mg/dL (0.2-1.3); Blood Urea Nitrogen 16 mg/dL (7-17); Calcium 8.6 mg/dL (8.4-10.2); Carbon Dioxide > 40 mmol/L (22-30); Chloride 96 mmol/L (98-107); Estimated CRCL calculation 32 ml/min; Estimated Glomerular Filt Rate > 60; Glucose 112 mg/dL (65-110); Potassium 3.7 mmol/L (3.4-5.0); Sodium 138 mmol/L (137-145)
[2022-09-25] MEDS: MAGNESIUM OXIDE 400 MG TABLET PO (08:59)
[2022-09-25] MEDS: POTASSIUM CHLORIDE 20 MEQ TABLET.ER PO ×2 (08:59→16:33)
[2022-09-25] MEDS: PANTOPRAZOLE 40 MG TABLET PO (08:59)
[2022-09-25] MEDS: ESCITALOPRAM OXALATE 5 MG TABLET PO (09:00)
[2022-09-25] MEDS: MIRABEGRON 25 MG ER TABLET PO (09:00)
[2022-09-25] MEDS: FUROSEMIDE INJ 40 MG/4 ML VIAL IV PUSH ×2 (09:00→20:55)
[2022-09-25] MEDS: SOTALOL HCL 40 MG TABLET PO (09:04)
--- NOTE | 2022-09-25 09:19 | PM.IMPN ---
Progress Note: A&P Assessment and Plan (1) Hypoxia: Code(s): R09.02 - Hypoxemia Status: Acute (2) Pneumonia: Qualifiers: Laterality: left Lung location: unspecified part of lung Pneumonia type: due to unspecified organism Qualified Code(s): J18.9 - Pneumonia, unspecified organism Code(s): J18.9 - Pneumonia, unspecified organism Status: Acute (3) Severe protein-calorie malnutrition: Code(s): E43 - Unspecified severe protein-calorie malnutrition Status: Acute (4) Hypertension: Code(s): I10 - Essential (primary) hypertension Status: Acute (5) Anxiety: Code(s): F41.9 - Anxiety disorder, unspecified Status: Acute (6) COPD (chronic obstructive pulmonary disease): Code(s): J44.9 - Chronic obstructive pulmonary disease, unspecified Status: Acute Plan Plan Patient advice to quit smoking. Bronchodilators. Spirometry and 2D echo EF 70% Keeping BMI less than 25. Will do calorie count?dietary consult Pneumoniae and flu vaccines as advised Pulmonary rehab if indicated. For disease management to follow GOLD guidelines. Screen for Vitamine D deficency. Repeat hospitilaztion risk evaluation per CAT. On home O2?2 L continues IV fluid resuscitation Repeat CBC CMP Two sets of Blood cultures C-reactive protein, procalcitonin level. PTT and PT INR CTA:? LL Pneumonia severe emphysema, pleural effusions small, 8 mm pulmonary nodule. Monitor albumin' Monitoring of mental status. Steroids suggested if septic shock on his positive fluid resuscitation and vasopressors. IV antibiotic?Rocephin and Zithromax History of atrial fibrillation already on?Xarelto and sotalol.? Hypokalemia?current potassium 3.7 Anxiety noted will start??Felisa spoke to patient's daughter for repeat CT of the chest in 6 months to follow-up on the lung nodule Subjective Date/time seen: 09/25/22 09:19 Interval history: Appears very comfortable and no chest pain, no shortness of breath, patient refused IV steroids yesterday Exam Narrative: GENERAL: Well appearing, well-nourished, non-toxic, in no acute distress. HEAD: Normocephalic, atraumatic. NECK: Supple. No adenopathy, no masses. RESPIRATORY: Airway patent, respirations labored. Poor air entry bilaterally few rhonchi eyes notable assessing muscles use CARDIOVASCULAR: Regular rate and rhythm without murmurs, rubs, or gallops. Peripheral pulses 2+ and equal bilaterally. ABDOMINAL: Soft, nontender, nondistended, no hepatosplenomegaly. Normoactive BS. MUSCULOSKELETAL: no Epigastric and no hypochondrial tenderness SKIN: Warm, dry, normal color. No rashes. NEURO: A&O X3. Moves all extremities PSYCHIATRIC: Appropriate mood and affect. Normal interaction. Objective Data Vital Signs Vital Signs: Vital Signs - 24 hr 09/24/22 09:34 09/24/22 09:36 09/24/22 09:31 Temperature Pulse Rate 83 83 82 Respiratory Rate 18 18 Blood Pressure 131/69 131/69 Pulse Oximetry 96 96 Oxygen Delivery Oxygen Flow Rate 09/24/22 10:00 09/24/22 11:46 09/24/22 16:26 Temperature 37.2 C Pulse Rate 79 77 67 Respiratory Rate 20 22 H 16 Blood Pressure 124/66 128/78 148/72 H Pulse Oximetry 95 94 93 Oxygen Delivery Oxygen Flow Rate 09/24/22 16:30 09/24/22 13:00 09/24/22 20:30 Temperature Pulse Rate 72 74 67 Respiratory Rate Blood Pressure Pulse Oximetry 98 Oxygen Delivery Nasal Cannula Oxygen Flow Rate 2 09/24/22 20:30 09/24/22 20:40 09/24/22 20:00 Temperature 36.2 C L Pulse Rate 67 66 65 Respiratory Rate 16 16 18 Blood Pressure 130/66 Pulse Oximetry 98 Oxygen Delivery Oxygen Flow Rate 09/24/22 21:20 09/24/22 20:00 09/24/22 20:00 Temperature Pulse Rate 67 64 65 Respiratory Rate 18 Blood Pressure Pulse Oximetry 98 Oxygen Delivery Nasal Cannula Oxygen Flow Rate 2 09/24/22 23:58 09/24/22 22:00 09/25/22 00:00 Temperature 36.6 C Pulse Rat
--- NOTE | 2022-09-25 12:56 | PC.NURSE ---
This patient, Sofi Zeng, was received from [ [id number]] on 09/25/22 at 1245. Patient/family oriented to unit policies and routines
--- NOTE | 2022-09-25 13:39 | PCOTNOTE ---
Attempted OT evaluation, patient states she is too fatigued and refuses evaluation at this time. Will follow.
[2022-09-25] MEDS: RIVAROXABAN 15 MG TABLET PO (20:54)
[2022-09-25] MEDS: PRAVASTATIN SODIUM 20 MG TABLET PO (20:54)
[2022-09-25] MEDS: SOTALOL HCL 80 MG TABLET PO (20:55)
[2022-09-26] VITALS (14 sets, daily range): BP systolic 106–131; BP diastolic 63–83; PULSE 64–82; RESP 12–18; TEMP 36.7–36.9; O2SAT 93–98; BMI 14.2
[2022-09-26] MEDS: IPRATROPIUM BR 0.02% INH SOLN 0.5 MG/2.5 ML VIAL INHALATION ×3 (04:16→14:34)
[2022-09-26 08:09] LABS: Hematocrit 38.7 % (37.0-47.0); Hemoglobin 11.8 g/dL (12.0-15.0); Mean Corpuscular HGB Conc 30.5 g/dl (32-36); Mean Corpuscular Volume 98.5 fl (80-100); Platelet Count Result 254 k/mm3 (150-375); Red Blood Count 3.93 M/mm3 (4.2-5.4); Red Cell Distribution Width 14.1 % (11.5-14.5); White Blood Count 10.3 K/mm3 (4.5-10.0)
[2022-09-26 08:20] LABS: Alanine Aminotransferase 12 U/L (6-35); Albumin Level 3.2 g/dL (3.5-5.1); Alkaline Phosphatase 76 U/L (38-126); Aspartate Amino Transferase 23 U/L (14-36); Bilirubin,Total 0.7 mg/dL (0.2-1.3); Blood Urea Nitrogen 22 mg/dL (7-17); Calcium 8.5 mg/dL (8.4-10.2); Carbon Dioxide > 40 mmol/L (22-30); Chloride 94 mmol/L (98-107); Estimated CRCL calculation 33 ml/min; Estimated Glomerular Filt Rate > 60; Glucose 78 mg/dL (65-110); Potassium 3.7 mmol/L (3.4-5.0); Sodium 135 mmol/L (137-145)
[2022-09-26] MEDS: FLUTICASONE/UMECLIDIN/VILANTER 100-62.5-25 MCG ELLIPTA 1 PUFF INHALATION (09:27)
--- NOTE | 2022-09-26 09:27 | PCPTNOTE ---
Attempted PT evaluation, pt refused due to increase chest pressure since last breathing treatment per pt's family member. RN aware. Will follow.
[2022-09-26] MEDS: FUROSEMIDE INJ 40 MG/4 ML VIAL IV PUSH (09:53)
[2022-09-26] MEDS: SOTALOL HCL 40 MG TABLET PO (09:53)
[2022-09-26] MEDS: PANTOPRAZOLE 40 MG TABLET PO (09:53)
[2022-09-26] MEDS: MAGNESIUM OXIDE 400 MG TABLET PO (09:53)
[2022-09-26] MEDS: ESCITALOPRAM OXALATE 5 MG TABLET PO (09:54)
[2022-09-26] MEDS: MIRABEGRON 25 MG ER TABLET PO (09:54)
[2022-09-26] MEDS: POTASSIUM CHLORIDE 20 MEQ TABLET.ER PO ×2 (09:54→16:28)
--- NOTE | 2022-09-26 13:13 | PM.IMPN ---
Progress Note: A&P Assessment and Plan (1) Hypoxia: Code(s): R09.02 - Hypoxemia Status: Acute (2) Pneumonia: Qualifiers: Laterality: left Lung location: unspecified part of lung Pneumonia type: due to unspecified organism Qualified Code(s): J18.9 - Pneumonia, unspecified organism Code(s): J18.9 - Pneumonia, unspecified organism Status: Acute (3) Severe protein-calorie malnutrition: Code(s): E43 - Unspecified severe protein-calorie malnutrition Status: Acute (4) Hypertension: Code(s): I10 - Essential (primary) hypertension Status: Acute (5) Anxiety: Code(s): F41.9 - Anxiety disorder, unspecified Status: Acute (6) COPD (chronic obstructive pulmonary disease): Code(s): J44.9 - Chronic obstructive pulmonary disease, unspecified Status: Acute Plan Plan Patient refusing nicotine patch continue Bronchodilators. supplemrtary oxygen pt refusing steroids pt is up to date with shots for pneumonia, covid ad flu 2D echo EF 70% CTA:? LL Pneumonia severe emphysema, pleural effusions small, 8 mm pulmonary nodule. IV antibiotic?Rocephin and Zithromax History of atrial fibrillation already on?Xarelto and sotalol.? Hypokalemia?current potassium 3.7 Anxiety noted will start??Lexapro add xanax low dose tid add lidoderm pach for shingles consult pulmonology add liquid mucinex Subjective Date/time seen: 09/26/22 13:13 Interval history: Pt admitted with hypoxia, pneumonia and anxiety Pt has copd uses nebulizers and inhalers at home sees pulmonology Dr Davidson Pt is needing 2 liters of oxygen feels very fatigued and weak States she quit smoking 3 weeks ago Pt has recent history of shingles blisters gave dried up but pt still has right sided upper chest pains Pt feels very anxious Review of Systems Review of Systems: Anxiety and Shortness of breath Exam Narrative: GENERAL: thin frail elderly lady very anxious on 2 liters of oxygen HEAD: Normocephalic, atraumatic. RESPIRATORY: bilateral expiratory wheezes throughout lung christ[place]on CARDIOVASCULAR: Regular rate and rhythm without murmurs, rubs, or gallops. Peripheral pulses 2+ and equal bilaterally. ABDOMINAL: Soft, nontender, nondistended, no hepatosplenomegaly. Normoactive BS. MUSCULOSKELETAL: no Epigastric and no hypochondrial tenderness SKIN: Warm, dry, normal color. No rashes. NEURO: A&O X3. Moves all extremities PSYCHIATRIC: Anxious. Objective Data Vital Signs Vital Signs: Vital Signs - 24 hr 09/25/22 14:22 09/25/22 15:19 09/25/22 15:17 Temperature 36.2 C L Pulse Rate 67 67 80 Respiratory Rate 18 20 Blood Pressure 118/77 Pulse Oximetry 97 92 Oxygen Delivery Nasal Cannula Oxygen Flow Rate 2 Fraction of Inspired Oxygen 09/25/22 15:27 09/25/22 20:55 09/25/22 21:05 Temperature 36.2 C L Pulse Rate 78 78 64 Respiratory Rate 20 16 Blood Pressure 135/77 Pulse Oximetry 98 Oxygen Delivery Oxygen Flow Rate Fraction of Inspired Oxygen 09/25/22 21:48 09/25/22 21:48 09/25/22 21:58 Temperature Pulse Rate 75 73 Respiratory Rate 18 18 Blood Pressure Pulse Oximetry 94 Oxygen Delivery Nasal Cannula Oxygen Flow Rate 2 Fraction of Inspired Oxygen 09/26/22 04:19 09/26/22 06:00 09/26/22 08:00 Temperature 36.8 C 36.7 C Pulse Rate 67 64 71 Respiratory Rate 16 12 18 Blood Pressure 131/83 129/71 Pulse Oximetry 98 93 Oxygen Delivery Oxygen Flow Rate Fraction of Inspired Oxygen 09/26/22 08:49 09/26/22 09:09 09/26/22 09:09 Temperature Pulse Rate 82 80 80 Respiratory Rate 18 18 18 Blood Pressure Pulse Oximetry 98 Oxygen Delivery Nasal Cannula Oxygen Flow Rate 2 Fraction of Inspired Oxygen 09/26/22 08:00 Temperature Pulse Rate Respiratory Rate Blood Pressure Pulse Oximetry 98 Oxygen Delivery Nasal Cannula Oxygen Flow Rate 2 Fraction of Inspired Oxygen
[2022-09-26] MEDS: guaiFENesin 200 MG/10 ML UDC PO ×2 (16:28→21:44)
[2022-09-26] MEDS: PRAVASTATIN SODIUM 20 MG TABLET PO (21:31)
[2022-09-26] MEDS: RIVAROXABAN 15 MG TABLET PO (21:31)
[2022-09-26] MEDS: SOTALOL HCL 80 MG TABLET PO (21:33)
[2022-09-26] MEDS: ACETAMINOPHEN 500 MG TABLET PO (21:43)
[2022-09-27] VITALS (14 sets, daily range): BP systolic 111–126; BP diastolic 69–72; PULSE 61–77; RESP 14–18; TEMP 36.4; O2SAT 94–98
[2022-09-27] MEDS: CALCIUM CARBONATE (TUMS) 500 MG (200 MG ELEMENTAL) PO (02:23)
[2022-09-27 07:27] LABS: Hematocrit 37.3 % (37.0-47.0); Hemoglobin 11.7 g/dL (12.0-15.0); Mean Corpuscular HGB Conc 31.4 g/dl (32-36); Mean Corpuscular Hemoglobin 30.4 pg (26-34); Mean Corpuscular Volume 96.9 fl (80-100); Mean Platelet Volume 9.7 fl (7.4-10.4); Platelet Count Result 222 k/mm3 (150-375); Red Blood Count 3.85 M/mm3 (4.2-5.4); Red Cell Distribution Width 14.2 % (11.5-14.5); White Blood Count 9.1 K/mm3 (4.5-10.0)
[2022-09-27 07:51] LABS: Alanine Aminotransferase 13 U/L (6-35); Albumin Level 3.1 g/dL (3.5-5.1); Alkaline Phosphatase 78 U/L (38-126); Aspartate Amino Transferase 20 U/L (14-36); Bilirubin,Total 0.7 mg/dL (0.2-1.3); Blood Urea Nitrogen 22 mg/dL (7-17); Calcium 9.1 mg/dL (8.4-10.2); Carbon Dioxide > 40 mmol/L (22-30); Chloride 94 mmol/L (98-107); Estimated CRCL calculation 26 ml/min; Estimated Glomerular Filt Rate > 60; Glucose 93 mg/dL (65-110); Potassium 4.1 mmol/L (3.4-5.0); Sodium 135 mmol/L (137-145)
[2022-09-27] MEDS: LIDOCAINE 5% PATCH 1 PATCH TRANSDERM (08:37)
[2022-09-27] MEDS: SOTALOL HCL 40 MG TABLET PO (08:38)
[2022-09-27] MEDS: MAGNESIUM OXIDE 400 MG TABLET PO (08:38)
[2022-09-27] MEDS: ESCITALOPRAM OXALATE 5 MG TABLET PO (08:38)
[2022-09-27] MEDS: ERGOCALCIFEROL 50,000 UNITS CAPSULE 50000 UNITS PO (08:38)
[2022-09-27] MEDS: MIRABEGRON 25 MG ER TABLET PO (08:38)
[2022-09-27] MEDS: POTASSIUM CHLORIDE 20 MEQ TABLET.ER PO ×2 (08:38→16:48)
[2022-09-27] MEDS: PANTOPRAZOLE 40 MG TABLET PO (08:41)
[2022-09-27] MEDS: guaiFENesin 200 MG/10 ML UDC PO ×2 (08:44→21:10)
--- NOTE | 2022-09-27 10:03 | PM.CNPUL ---
Assessment and Plan Assessment and plan (1) COPD (chronic obstructive pulmonary disease): Code(s): J44.9 - Chronic obstructive pulmonary disease, unspecified Status: Acute Assessment and Plan: This 72-year-old female has had severe COPD with hypoxemic respiratory failure, recently hospitalized with severe left upper lobe pneumonia for which she received treatment with broad-spectrum antibiotics for possible Pseudomonas infection as she had a history of previous Pseudomonas infection in January of 2022. Patient presented with shortness of breath lower extremity edema, she was found to have atrial fibrillation with rapid ventricular response. She has responded to treatment for congestive heart failure. Her respiratory status appears to be back at baseline at this point. She remains on supplemental oxygen via nasal cannula. Review of chest imaging studies have shown significant clearing of the left upper lobe infiltrate for which she was hospitalized approximately 1 month ago. On the chest CT there is a question of some volume loss in the left upper lobe probably the anterior segment of the left upper lobe possibly related to mucus. There is no evidence of COPD exacerbation at this point. The patient has history of anxiety which often interferes with increasing shortness of breath. On physical exam she has distant breath sounds and no wheezing. Plan: continue with nebulized short-acting bronchodilators supplemental oxygen. Order sputum culture. no need for antibiotics. repeat chest x-ray regarding left upper lobe volume loss. The patient has appointment to return to pulmonary clinic later on this month. (2) Acute hypoxemic respiratory failure: Code(s): J96.01 - Acute respiratory failure with hypoxia Status: Acute (3) Atrial fibrillation: Qualifiers: Atrial fibrillation type: paroxysmal Qualified Code(s): I48.0 - Paroxysmal atrial fibrillation Code(s): I48.91 - Unspecified atrial fibrillation Status: Acute (4) Diastolic heart failure: Code(s): I50.30 - Unspecified diastolic (congestive) heart failure Status: Acute (5) Pneumonia: Qualifiers: Laterality: left Lung location: unspecified part of lung Pneumonia type: due to unspecified organism Qualified Code(s): J18.9 - Pneumonia, unspecified organism Code(s): J18.9 - Pneumonia, unspecified organism Status: Acute History of Present Illness History of Present Illness Consult date: 09/27/22 Chief complaint: fluid overload,rle weakness Narrative: this 72-year-old female presented with a shortness of breath and leg weakness. The patient is well known to me. She has history of severe COPD, chronic hypoxemic respiratory failure, frequent COPD exacerbations previous hospitalization for Pseudomonas infection. she was hospitalized approximately 1 month ago with a severe left upper lobe pneumonia patient was treated with antibiotics including imipenem for possible recurrence of Pseudomonas infection. She was discharged approximately 18 days ago on supplemental oxygen, nebulized short-acting bronchodilators levofloxacin and Augmentin and her maintenance long-acting bronchodilators. The patient presented to the emergency room 3 days ago complaining of a increasing shortness of breath some lower extremity weakness and also mild edema. She had no fever chills hemoptysis. She has had history of chronic anxiety and was also complaining of some chest heaviness. Diagnostic studies showed atrial fibrillation, and left upper lobe infiltrate related to recent pneumonia. On further review of chest imaging studies there was evidence of significant clearing of the left upper lobe infiltrate and also possibly volume loss in the anterior segment of the left upper lobe. The patient has been treated with azithromycin nebulized short-acting bronchodilators and also treatment for possible congestive heart failure. Currently she
[2022-09-27] MEDS: IPRATROPIUM BR 0.02% INH SOLN 0.5 MG/2.5 ML VIAL INHALATION ×2 (11:52→21:16)
--- NOTE | 2022-09-27 12:04 | P.CDI_ITS ---
CDI Query Clarified Diagnosis Clarified Diagnosis: CHF noted on the assessment and plan. Elevated BNP on 09/24/22 lab work. PT presented with new BLE edema. and increasing shortness of breath. Pt received IV Lasix on 09/24/22. Please specify type and acuity of heart failure if known. * Acute * Chronic * Acute on Chronic * Unknown * Systolic * Diastolic * Combined Systolic and Diastolic * Unknown <Karla Terrell RN - Last Filed: 09/27/22 12:08> Provider Comments acute on chronic diastolic CHF <Josefina Cash MD - Last Filed: 09/27/22 16:56>
--- NOTE | 2022-09-27 12:39 | PM.IMPN ---
Progress Note: A&P Assessment and Plan (1) Hypoxia: Code(s): R09.02 - Hypoxemia Status: Acute Assessment and Plan: Patient refusing nicotine patch continue Bronchodilators. supplementary oxygen at 2 liters pt refusing steroids pt is up to date with shots for pneumonia, covid ad flu consult pulmonology add liquid mucinex (2) Pneumonia: Qualifiers: Laterality: left Lung location: unspecified part of lung Pneumonia type: due to unspecified organism Qualified Code(s): J18.9 - Pneumonia, unspecified organism Code(s): J18.9 - Pneumonia, unspecified organism Status: Acute Assessment and Plan: CTA:? LL Pneumonia severe emphysema, pleural effusions small, 8 mm pulmonary nodule. IV antibiotic?Rocephin and Zithromax (3) Severe protein-calorie malnutrition: Code(s): E43 - Unspecified severe protein-calorie malnutrition Status: Acute (4) Hypertension: Code(s): I10 - Essential (primary) hypertension Status: Acute Assessment and Plan: 2D echo EF 70% History of atrial fibrillation already on?Xarelto and sotalol.? (5) Anxiety: Code(s): F41.9 - Anxiety disorder, unspecified Status: Acute Assessment and Plan: Anxiety noted will start??Lexapro add xanax low dose tid add lidoderm pach for shingles pain and anxiety from shingles (6) COPD (chronic obstructive pulmonary disease): Code(s): J44.9 - Chronic obstructive pulmonary disease, unspecified Status: Acute Assessment and Plan: ad mitted with copd exacerbation and pneumonia pt abdiel need ambulatory walk study on dc Subjective Date/time seen: 09/27/22 12:39 Interval history: Pt admitted with hypoxia, copd exacerbation and pneumonia Pt has history of copd uses nebulizers and inhalers at home sees pulmonology Dr Davidson pt does not use oxygen at home Pt is needing 2 liters of oxygen feels very fatigued and weak States she quit smoking 3 weeks ago Pt has recent history of shingles blisters gave dried up but pt still has right sided upper chest pains Pt feels very anxious Pt waiting to see pulmonology Exam Narrative: GENERAL: thin frail elderly lady very anxious on 2 liters of oxygen HEAD: Normocephalic, atraumatic. RESPIRATORY: bilateral expiratory wheezes throughout lung [place] CARDIOVASCULAR: Regular rate and rhythm without murmurs, rubs, or gallops. Peripheral pulses 2+ and equal bilaterally. ABDOMINAL: Soft, nontender, nondistended, no hepatosplenomegaly. Normoactive BS. MUSCULOSKELETAL: no Epigastric and no hypochondrial tenderness SKIN: Warm, dry, normal color. No rashes. NEURO: A&O X3. Moves all extremities PSYCHIATRIC: Anxious. Objective Data Vital Signs Vital Signs: Vital Signs - 24 hr 09/26/22 14:34 09/26/22 14:43 09/26/22 16:00 Temperature 36.8 C Pulse Rate 79 81 68 Respiratory Rate 18 18 18 Blood Pressure 106/63 Pulse Oximetry 94 Pulse Oximetry [At Rest After Therapy Session] Oxygen Delivery Oxygen Flow Rate Fraction of Inspired Oxygen 09/26/22 21:33 09/26/22 22:00 09/26/22 22:17 Temperature 36.9 C Pulse Rate 68 75 67 Respiratory Rate 17 18 Blood Pressure 120/70 Pulse Oximetry 97 Pulse Oximetry [At Rest After Therapy Session] Oxygen Delivery Oxygen Flow Rate Fraction of Inspired Oxygen 09/26/22 22:18 09/26/22 22:26 09/27/22 03:07 Temperature Pulse Rate 72 77 Respiratory Rate 18 18 Blood Pressure Pulse Oximetry 96 Pulse Oximetry [At Rest After Therapy Session] Oxygen Delivery Nasal Cannula Oxygen Flow Rate 2 Fraction of Inspired Oxygen 09/27/22 03:17 09/26/22 20:00 09/27/22 05:14 Temperature 36.4 C Pulse Rate 74 74 65 Respiratory Rate 18 18 17 Blood Pressure 126/69 Pulse Oximetry 96 98 Pulse Oximetry [At Rest After Therapy Session] Oxygen Delivery Nasal Cannula Oxygen Flow Rate 2 Fraction of Inspired Oxyge
[2022-09-27] MEDS: RIVAROXABAN 15 MG TABLET PO (21:06)
[2022-09-27] MEDS: PRAVASTATIN SODIUM 20 MG TABLET PO (21:06)
[2022-09-27] MEDS: SOTALOL HCL 80 MG TABLET PO (21:07)
[2022-09-28] VITALS (10 sets, daily range): BP systolic 110–128; BP diastolic 57–79; PULSE 59–80; RESP 16–18; TEMP 36.5; O2SAT 94–97
[2022-09-28] MEDS: IPRATROPIUM BR 0.02% INH SOLN 0.5 MG/2.5 ML VIAL INHALATION ×4 (03:20→22:16)
[2022-09-28 06:33] LABS: Hematocrit 37.8 % (37.0-47.0); Hemoglobin 11.6 g/dL (12.0-15.0); Mean Corpuscular HGB Conc 30.7 g/dl (32-36); Mean Corpuscular Hemoglobin 30.5 pg (26-34); Mean Corpuscular Volume 99.5 fl (80-100); Mean Platelet Volume 10.1 fl (7.4-10.4); Platelet Count Result 224 k/mm3 (150-375); Red Cell Distribution Width 14.3 % (11.5-14.5); White Blood Count 9.2 K/mm3 (4.5-10.0)
[2022-09-28 06:44] LABS: Anion Gap 1 mmol/L (8-16); Blood Urea Nitrogen 21 mg/dL (7-17); Calcium 8.5 mg/dL (8.4-10.2); Carbon Dioxide 37 mmol/L (22-30); Chloride 102 mmol/L (98-107); Estimated CRCL calculation 33 ml/min; Estimated Glomerular Filt Rate > 60; Glucose 168 mg/dL (65-110); Potassium 4.4 mmol/L (3.4-5.0); Sodium 140 mmol/L (137-145)
[2022-09-28] MEDS: FLUTICASONE/UMECLIDIN/VILANTER 100-62.5-25 MCG ELLIPTA 1 PUFF INHALATION (09:28)
[2022-09-28] MEDS: MAGNESIUM OXIDE 400 MG TABLET PO (09:55)
[2022-09-28] MEDS: SOTALOL HCL 40 MG TABLET PO (09:55)
[2022-09-28] MEDS: ESCITALOPRAM OXALATE 5 MG TABLET PO (09:55)
[2022-09-28] MEDS: MIRABEGRON 25 MG ER TABLET PO (09:55)
[2022-09-28] MEDS: PANTOPRAZOLE 40 MG TABLET PO (09:55)
[2022-09-28] MEDS: POTASSIUM CHLORIDE 20 MEQ TABLET.ER PO ×2 (09:55→16:59)
[2022-09-28] MEDS: guaiFENesin 200 MG/10 ML UDC PO ×2 (09:58→20:47)
[2022-09-28] MEDS: LIDOCAINE 5% PATCH 1 PATCH TRANSDERM (10:40)
--- NOTE | 2022-09-28 11:26 | PM.PNPUL ---
Progress Note: A&P Assessment and Plan (1) Acute exacerbation of CHF (congestive heart failure): Code(s): I50.9 - Heart failure, unspecified Status: Acute (2) Anxiety: Code(s): F41.9 - Anxiety disorder, unspecified Status: Acute (3) Hypoxia: Code(s): R09.02 - Hypoxemia Status: Acute (4) COPD (chronic obstructive pulmonary disease): Code(s): J44.9 - Chronic obstructive pulmonary disease, unspecified Status: Acute Assessment and Plan: 72-year-old female with a very severe COPD recently hospitalized with a severe left a pneumonia for which she was adequately treated both inpatient and outpatient presented with shortness of breath probably related to fluid overload. Diagnostic studies have shown partial clearing of left upper lobe pneumonia but a partial atelectasis of the left upper lobe likely related to intrabronchial mucus. Patient is not on any antibiotics at this point. Plan: Continue with current regimen I have added nebulized Mucomyst twice daily for partial left upper lobe atelectasis. Continue with other bronchodilators. (5) Atrial fibrillation: Qualifiers: Atrial fibrillation type: unspecified Qualified Code(s): I48.91 - Unspecified atrial fibrillation Code(s): I48.91 - Unspecified atrial fibrillation Status: Acute (6) Severe protein-calorie malnutrition: Code(s): E43 - Unspecified severe protein-calorie malnutrition Status: Acute Subjective Date/time seen: 09/28/22 11:26 Interval history: patient stated she is doing better today. Less shortness of breath. She has been complaining of right upper back pain related to herpes zoster. Has some cough and also some chest congestion. She underwent chest x-ray that showed persistent partial volume loss left lung. Review of Systems Review of Systems: All systems reviewed & are unremarkable except as noted in HPI and below ( HPI and below) Exam Narrative: GENERAL APPEARANCE: Well developed, emaciated, alert and cooperative, and appears to be in mild respiratory distress while on supplemental oxygen via nasal cannula. SKIN: Inspection of the skin reveals no rashes, ulcerations or petechiae. HEENT: Sclerae anicteric and conjunctivae pink and moist. Extraocular movements were intact and pupils were equal, round. The oral mucosa, hard and soft palate, tongue and posterior pharynx were normal. NECK: Supple. There was no thyroid enlargement, and no tenderness, or masses were felt. CHEST: increased AP diameter and normal contour without any kyphoscoliosis. LUNGS: Auscultation of the lungs revealed distant breath sounds bilaterally. CARDIAC: There was a regular rate and rhythm without any murmurs, gallops, rubs. ABDOMEN: Soft and nontender with normal bowel sounds. There was no organomegaly. LYMPH NODES: No lymphadenopathy was appreciated in the neck. EXTREMITIES: No cyanosis, clubbing or edema. NEUROLOGIC: Alert and oriented x 3. Normal affect. Objective Data Vital Signs Vital Signs: Vital Signs - 24 hr 09/27/22 11:45 09/27/22 11:57 09/27/22 14:00 Temperature 36.4 C L Pulse Rate 69 61 Respiratory Rate 18 18 Blood Pressure 117/72 Pulse Oximetry 94 95 Oxygen Delivery Nasal Cannula Oxygen Flow Rate 2 Fraction of Inspired Oxygen 09/27/22 21:07 09/27/22 21:16 09/27/22 21:20 Temperature Pulse Rate 61 72 Respiratory Rate 18 Blood Pressure Pulse Oximetry 94 Oxygen Delivery Nasal Cannula Oxygen Flow Rate 2 Fraction of Inspired Oxygen 09/27/22 21:25 09/27/22 23:39 09/27/22 20:00 Temperature 36.4 C Pulse Rate 77 68 68 Respiratory Rate 18 14 14 Blood Pressure 111/69 Pulse Oximetry 96 96 Oxygen Delivery Nasal Cannula Oxygen Flow Rate 2 Fraction of Inspired Oxygen 28 09/28/22 09:55 09/28/22 09:29 09/28/22 09:29 Temperature Pulse Rate 73 76 Respiratory Rate 18 Blood Pressure Pulse Oximetry 94 Oxyg
--- NOTE | 2022-09-28 15:07 | PM.IMPN ---
Progress Note: A&P Assessment and Plan (1) Hypoxia: Code(s): R09.02 - Hypoxemia Status: Acute Assessment and Plan: Needing supplemental oxygen via nasal cannula. Refuse steroid Pulmonary consulted Underlying severe COPD Presented with left upper lobe pneumonia Right mucus plugging Nebulized Mucomyst/bronchodilator (2) Pneumonia: Qualifiers: Laterality: left Lung location: unspecified part of lung Pneumonia type: due to unspecified organism Qualified Code(s): J18.9 - Pneumonia, unspecified organism Code(s): J18.9 - Pneumonia, unspecified organism Status: Acute Assessment and Plan: CTA:? LL Pneumonia severe emphysema, pleural effusions small, 8 mm pulmonary nodule. IV antibiotic?Rocephin and Zithromax which has been now discontinued as suspicion for pneumonia is less (3) Severe protein-calorie malnutrition: Code(s): E43 - Unspecified severe protein-calorie malnutrition Status: Acute (4) Hypertension: Code(s): I10 - Essential (primary) hypertension Status: Acute Assessment and Plan: 2D echo EF 70% History of atrial fibrillation already on?Xarelto and sotalol.? (5) Anxiety: Code(s): F41.9 - Anxiety disorder, unspecified Status: Acute Assessment and Plan: Anxiety: She started on?Lexapro add xanax low dose tid add lidoderm pach for shingles pain and anxiety from shingles (6) COPD (chronic obstructive pulmonary disease): Code(s): J44.9 - Chronic obstructive pulmonary disease, unspecified Status: Acute Assessment and Plan: ad mitted with copd exacerbation and pneumonia Home oxygen evaluation prior to discharge Plan Lower extremity edema which she reports however no longer has any more Subjective Date/time seen: 09/28/22 15:07 Interval history: Patient feeling little better. Breathing has improved. Still has some cough. Seen by Pulmonary. Does not use oxygen at home. Has underlying COPD Recently quit smoking. Review of Systems Review of Systems: All systems reviewed & are unremarkable except as noted in HPI and below Exam Narrative: GENERAL: thin frail elderly lady not in acute distress HEAD: Normocephalic, atraumatic. RESPIRATORY: bilateral coarse breath sounds no wheezes CARDIOVASCULAR: Regular rate and rhythm without murmurs, rubs, or gallops. Peripheral pulses 2+ and equal bilaterally. ABDOMINAL: Soft, nontender, nondistended, no hepatosplenomegaly. Normoactive BS. MUSCULOSKELETAL: no Epigastric and no hypochondrial tenderness SKIN: Warm, dry, normal color. No rashes. NEURO: A&O X3. Moves all extremities PSYCHIATRIC: Anxious. Objective Data Vital Signs Vital Signs: Vital Signs - 24 hr 09/27/22 21:07 09/27/22 21:16 09/27/22 21:20 Temperature Pulse Rate 61 72 Respiratory Rate 18 Blood Pressure Pulse Oximetry 94 Oxygen Delivery Nasal Cannula Oxygen Flow Rate 2 Fraction of Inspired Oxygen 09/27/22 21:25 09/27/22 23:39 09/27/22 20:00 Temperature 97.6 F Pulse Rate 77 68 68 Respiratory Rate 18 14 14 Blood Pressure 111/69 Pulse Oximetry 96 96 Oxygen Delivery Nasal Cannula Oxygen Flow Rate 2 Fraction of Inspired Oxygen 28 09/28/22 09:55 09/28/22 09:29 09/28/22 09:29 Temperature Pulse Rate 73 76 Respiratory Rate 18 Blood Pressure Pulse Oximetry 94 Oxygen Delivery Nasal Cannula Oxygen Flow Rate 2 Fraction of Inspired Oxygen 09/28/22 09:40 09/28/22 14:55 Temperature Pulse Rate 80 68 Respiratory Rate 18 18 Blood Pressure Pulse Oximetry Oxygen Delivery Oxygen Flow Rate Fraction of Inspired Oxygen Intake/Output Intake/Output: Intake & Output 09/25/22 09/26/22 09/27/22 09/28/22 23:59 23:59 23:59 23:59 Intake Total 1070 1295 1100 860 Output Total 860 Balance 210 1295 1100 860 Meds/Results Medications: Active Medications Generic Name Dose Route Start Last
[2022-09-28] MEDS: RIVAROXABAN 15 MG TABLET PO (20:47)
[2022-09-28] MEDS: PRAVASTATIN SODIUM 20 MG TABLET PO (20:47)
[2022-09-28] MEDS: SOTALOL HCL 80 MG TABLET PO (20:49)
[2022-09-28] MEDS: ACETAMINOPHEN 500 MG TABLET PO (20:59)
[2022-09-28] MEDS: ACETYLCYSTEINE 20% INHAL SOLN 800 MG/4 ML VIAL 200 MG INHALATION (22:16)
[2022-09-29] VITALS (20 sets, daily range): BP systolic 121–145; BP diastolic 69–80; PULSE 65–84; RESP 16–20; TEMP 36.6–37.1; O2SAT 79–99
[2022-09-29] MEDS: IPRATROPIUM BR 0.02% INH SOLN 0.5 MG/2.5 ML VIAL INHALATION ×4 (02:36→20:43)
[2022-09-29 06:41] LABS: Alanine Aminotransferase 17 U/L (6-35); Albumin Level 3.1 g/dL (3.5-5.1); Alkaline Phosphatase 74 U/L (38-126); Anion Gap 0 mmol/L (8-16); Aspartate Amino Transferase 28 U/L (14-36); Bilirubin,Total 0.7 mg/dL (0.2-1.3); Blood Urea Nitrogen 18 mg/dL (7-17); Calcium 8.7 mg/dL (8.4-10.2); Carbon Dioxide 32 mmol/L (22-30); Chloride 102 mmol/L (98-107); Estimated CRCL calculation 38 ml/min; Estimated Glomerular Filt Rate > 60; Glucose 92 mg/dL (65-110); Magnesium 2.2 mg/dL (1.6-2.3); Potassium 4.3 mmol/L (3.4-5.0); Sodium 134 mmol/L (137-145)
[2022-09-29 06:47] LABS: Basophils Absolute Auto 0.1 K/mm3 (0.0-0.1); Basophils Percent Auto 0.5 % (0.2-1.2); Eosinophils Absolute Auto 0.1 K/mm3 (0-0.3); Eosinophils Percent Auto 0.9 % (0-4.4); Hemoglobin 11.7 g/dL (12.0-15.0); Immature Granulocyte Absolute 0.02 K/mm3 (0.00-0.031); Immature Granulocyte Percent A 0.2 % (0-0.5); Lymphocytes Absolute Auto 2.49 K/mm3 (0.9-3.2); Lymphocytes Percent Auto 25.3 % (18.3-44.2); Mean Corpuscular HGB Conc 31.6 g/dl (32-36); Mean Corpuscular Hemoglobin 30.8 pg (26-34); Mean Corpuscular Volume 97.4 fl (80-100); Monocytes Absolute Auto 0.8 K/mm3 (0.1-0.6); Monocytes Percent Auto 8.2 % (2.6-8.5); Neutrophils Absolute Auto 6.4 K/mm3 (1.3-6.7); Neutrophils Percent Auto 64.9 % (45.5-73.1); Platelet Count Result 213 k/mm3 (150-375); Red Cell Distribution Width 14.2 % (11.5-14.5); White Blood Count 9.9 K/mm3 (4.5-10.0)
[2022-09-29] MEDS: MAGNESIUM OXIDE 400 MG TABLET PO (08:34)
[2022-09-29] MEDS: SOTALOL HCL 40 MG TABLET PO (08:34)
[2022-09-29] MEDS: POTASSIUM CHLORIDE 20 MEQ TABLET.ER PO (08:34)
[2022-09-29] MEDS: PANTOPRAZOLE 40 MG TABLET PO (08:34)
[2022-09-29] MEDS: ESCITALOPRAM OXALATE 5 MG TABLET PO (08:34)
[2022-09-29] MEDS: MIRABEGRON 25 MG ER TABLET PO (08:34)
[2022-09-29] MEDS: guaiFENesin 200 MG/10 ML UDC PO ×2 (08:35→21:30)
[2022-09-29] MEDS: FLUTICASONE/UMECLIDIN/VILANTER 100-62.5-25 MCG ELLIPTA 1 PUFF INHALATION (09:39)
[2022-09-29] MEDS: ACETYLCYSTEINE 20% INHAL SOLN 800 MG/4 ML VIAL 200 MG INHALATION ×2 (09:39→20:43)
--- NOTE | 2022-09-29 10:51 | PM.PNPUL ---
Progress Note: A&P Assessment and Plan (1) Acute exacerbation of CHF (congestive heart failure): Code(s): I50.9 - Heart failure, unspecified Status: Acute (2) Anxiety: Code(s): F41.9 - Anxiety disorder, unspecified Status: Acute (3) Hypoxia: Code(s): R09.02 - Hypoxemia Status: Acute (4) COPD (chronic obstructive pulmonary disease): Code(s): J44.9 - Chronic obstructive pulmonary disease, unspecified Status: Acute Assessment and Plan: 72-year-old female with a very severe COPD recently hospitalized with a severe left a pneumonia for which she was adequately treated both inpatient and outpatient presented with shortness of breath probably related to fluid overload. Diagnostic studies have shown partial clearing of left upper lobe pneumonia but also partial atelectasis of the left upper lobe likely related to intrabronchial mucus. Patient is not on any antibiotics at this point. started on nebulized Mucomyst yesterday. Plan: Continue with pulmonary toilet short-acting bronchodilators nebulized Mucomyst added incentive spirometry. Repeat chest x-ray in a.m. (5) Atrial fibrillation: Qualifiers: Atrial fibrillation type: unspecified Qualified Code(s): I48.91 - Unspecified atrial fibrillation Code(s): I48.91 - Unspecified atrial fibrillation Status: Acute (6) Severe protein-calorie malnutrition: Code(s): E43 - Unspecified severe protein-calorie malnutrition Status: Acute Subjective Date/time seen: 09/29/22 10:51 Interval history: patient doing better. Still coughing but has not been able to bring up any phlegm. Tolerating nebulized mucolytic agent. Review of Systems Review of Systems: All systems reviewed & are unremarkable except as noted in HPI and below ( HPI and below) Exam Narrative: GENERAL APPEARANCE: Well developed, emaciated, alert and cooperative, and appears to be in mild respiratory distress while on supplemental oxygen via nasal cannula. SKIN: Inspection of the skin reveals no rashes, ulcerations or petechiae. HEENT: Sclerae anicteric and conjunctivae pink and moist. Extraocular movements were intact and pupils were equal, round. The oral mucosa, hard and soft palate, tongue and posterior pharynx were normal. NECK: Supple. There was no thyroid enlargement, and no tenderness, or masses were felt. CHEST: increased AP diameter and normal contour without any kyphoscoliosis. LUNGS: Auscultation of the lungs revealed distant breath sounds bilaterally. CARDIAC: There was a regular rate and rhythm without any murmurs, gallops, rubs. ABDOMEN: Soft and nontender with normal bowel sounds. There was no organomegaly. LYMPH NODES: No lymphadenopathy was appreciated in the neck. EXTREMITIES: No cyanosis, clubbing or edema. NEUROLOGIC: Alert and oriented x 3. Normal affect. Objective Data Vital Signs Vital Signs: Vital Signs - 24 hr 09/28/22 14:55 09/28/22 15:09 09/28/22 15:09 Temperature Pulse Rate 68 72 72 Respiratory Rate 18 18 18 Blood Pressure Pulse Oximetry Oxygen Delivery Oxygen Flow Rate 09/28/22 14:00 09/28/22 20:49 09/28/22 22:09 Temperature 36.5 C 36.5 C Pulse Rate 75 76 65 Respiratory Rate 16 16 Blood Pressure 110/57 L 128/79 Pulse Oximetry 94 97 Oxygen Delivery Oxygen Flow Rate 09/28/22 20:15 09/28/22 21:15 09/29/22 02:43 Temperature Pulse Rate 59 L Respiratory Rate 18 Blood Pressure Pulse Oximetry 95 93 Oxygen Delivery Nasal Cannula Nasal Cannula Oxygen Flow Rate 2 2 09/29/22 02:43 09/29/22 02:55 09/29/22 06:05 Temperature 37.1 C Pulse Rate 65 69 67 Respiratory Rate 18 18 16 Blood Pressure 145/80 H Pulse Oximetry 97 Oxygen Delivery Oxygen Flow Rate 09/29/22 07:55 09/29/22 08:34 09/29/22 08:00 Temperature 36.8 C Pulse Rate 72 72 Respiratory Rate 16 Blood Pressure 133/71 Pulse Oximetry 95 95 Oxygen Delivery
[2022-09-29] MEDS: GABAPENTIN 100 MG CAPSULE PO (12:20)
[2022-09-29] MEDS: ALBUTEROL SULFATE NEB 2.5 MG/3 ML INH 5 MG INHALATION ×2 (14:18→20:43)
--- NOTE | 2022-09-29 14:21 | PM.IMPN ---
Progress Note: A&P Assessment and Plan (1) Hypoxia: Code(s): R09.02 - Hypoxemia Status: Acute Assessment and Plan: Needing supplemental oxygen via nasal cannula. Refuse steroid Pulmonary consulted Underlying severe COPD Presented with left upper lobe pneumonia Right mucus plugging Nebulized Mucomyst/bronchodilator (2) Pneumonia: Qualifiers: Laterality: left Lung location: unspecified part of lung Pneumonia type: due to unspecified organism Qualified Code(s): J18.9 - Pneumonia, unspecified organism Code(s): J18.9 - Pneumonia, unspecified organism Status: Acute Assessment and Plan: CTA:? LL Pneumonia severe emphysema, pleural effusions small, 8 mm pulmonary nodule. IV antibiotic?Rocephin and Zithromax which has been now discontinued as suspicion for pneumonia is less (3) Severe protein-calorie malnutrition: Code(s): E43 - Unspecified severe protein-calorie malnutrition Status: Acute (4) Hypertension: Code(s): I10 - Essential (primary) hypertension Status: Acute Assessment and Plan: 2D echo EF 70% History of atrial fibrillation already on?Xarelto and sotalol.? (5) Anxiety: Code(s): F41.9 - Anxiety disorder, unspecified Status: Acute Assessment and Plan: Anxiety: She started on?Lexapro add xanax low dose tid add lidoderm pach for shingles pain and anxiety from shingles. Add gabapentin for neuropathy pain from shingles (6) COPD (chronic obstructive pulmonary disease): Code(s): J44.9 - Chronic obstructive pulmonary disease, unspecified Status: Acute Assessment and Plan: ad mitted with copd exacerbation and pneumonia Home oxygen evaluation prior to discharge Plan Lower extremity edema which she reports however no longer has any more Subjective Date/time seen: 09/29/22 14:21 Interval history: Patient seen earlier. States breathing is better. Still has some cough. Shingles pain is hurting Review of Systems Review of Systems: All systems reviewed & are unremarkable except as noted in HPI and below Exam Narrative: GENERAL: thin frail elderly lady not in acute distress HEAD: Normocephalic, atraumatic. RESPIRATORY: bilateral coarse breath sounds no wheezes CARDIOVASCULAR: Regular rate and rhythm without murmurs, rubs, or gallops. Peripheral pulses 2+ and equal bilaterally. ABDOMINAL: Soft, nontender, nondistended, no hepatosplenomegaly. Normoactive BS. MUSCULOSKELETAL: no Epigastric and no hypochondrial tenderness SKIN: Warm, dry, normal color. No rashes. NEURO: A&O X3. Moves all extremities PSYCHIATRIC: Anxious. Objective Data Vital Signs Vital Signs: Vital Signs - 24 hr 09/28/22 14:55 09/28/22 15:09 09/28/22 15:09 Temperature Pulse Rate 68 72 72 Respiratory Rate 18 18 18 Blood Pressure Pulse Oximetry Oxygen Delivery Oxygen Flow Rate Fraction of Inspired Oxygen 09/28/22 20:49 09/28/22 22:09 09/28/22 20:15 Temperature 97.7 F Pulse Rate 76 65 59 L Respiratory Rate 16 18 Blood Pressure 128/79 Pulse Oximetry 97 Oxygen Delivery Oxygen Flow Rate Fraction of Inspired Oxygen 09/28/22 21:15 09/29/22 02:43 09/29/22 02:43 Temperature Pulse Rate 65 Respiratory Rate 18 Blood Pressure Pulse Oximetry 95 93 Oxygen Delivery Nasal Cannula Nasal Cannula Oxygen Flow Rate 2 2 Fraction of Inspired Oxygen 09/29/22 02:55 09/29/22 06:05 09/29/22 07:55 Temperature 98.8 F 98.3 F Pulse Rate 69 67 72 Respiratory Rate 18 16 16 Blood Pressure 145/80 H 133/71 Pulse Oximetry 97 95 Oxygen Delivery Oxygen Flow Rate Fraction of Inspired Oxygen 09/29/22 08:34 09/29/22 08:00 09/29/22 09:41 Temperature Pulse Rate 72 67 Respiratory Rate 20 Blood Pressure Pulse Oximetry 95 Oxygen Delivery Nasal Cannula Oxygen Flow Rate 2 Fraction of Inspired Oxygen 09/29/22 09:51 09/29/22 13:19 0
--- NOTE | 2022-09-29 14:31 | ECG_ITS ---
Measurements Intervals [place] Rate: 78 P: 101 ND: 117 QRS: 79 QRSD: 98 T: 105 QT: 392 QTc: 448 Interpretive Statements SINUS RHYTHM WITH SHORT ND INTERVAL POSSIBLE LEFT ATRIAL ENLARGEMENT DELAYED PRECORDIAL R/S TRANSITION ST-T WAVE ABNORMALITY IN HIGH LATERAL LEADS- CONSIDER ISCHEMIA BASELINE ARTIFACT- I, II, III, AVR, AVL, AVF, V1-V2 ABNORMAL ECG COMPARED TO ECG 09/24/2022 06:20:00 SINUS [address]HYTHM NOW PRESENT ST-T WAVE ABNORMALITY NOW PRESENT Electronically Signed On 09-29-2022 14:49:38 [employer] LINE [employer] by Robby Mcgee D.O.
[2022-09-29 14:49] LABS: Alveolar/Arterial O2 Gradient 218.6 mmHg; Base Excess ABG 6.1 mEq/l (+/-2.0); Fractional Inspired Oxygen 44 %; Oxygen Content ABG 16.7 %vol (16.0-22.0); PCO2 ABG 45.4 mmHg (35.0-45.0); PO2 FiO2 Ratio Arterial Blood 0.99 %; Total Hemoglobin 14.8 g/dL (12.0-18.0); pH ABG 7.452 (7.350-7.450)
[2022-09-29 14:52] LABS: Oxygen Saturation ABG 81.2 % (95.0-100.0); PO2 ABG 43.4 mmHg (80.0-100.0)
[2022-09-29 14:53] LABS: Device NASAL CANNULA; Modified Allen's Test Pass; Oxyhemoglobin 80.7 % THb (90.0-100.0); Site Drawn RIGHT RADIAL
--- NOTE | 2022-09-29 15:01 | PC.NURSE ---
patient c/o short of breath. running 69-74% on 2 L. resp notified. oxygen increased to 6L. patient still 80-84%. Dr. Deluca notified and orders received for cxr, abg and bipap. resp also giving neb treatment. patient states still having difficultly breathing. denies chest pain, but states tightness/pressure. ekg ordered also. 1500 Dr. Deluca at bedside and ABG results given to MD. bipap being placed at this time. Dr. Deluca to place orders.
[2022-09-29 16:04] LABS: Troponin I < 0.012 ng/mL (0.000-0.034)
--- NOTE | 2022-09-29 16:29 | PC.NURSE ---
patient to ct per bed. on bipap at time of transfer. resp going with patient.
[2022-09-29 18:58] LABS: Troponin I < 0.012 ng/mL (0.000-0.034)
[2022-09-29] MEDS: RIVAROXABAN 15 MG TABLET PO (21:30)
[2022-09-29] MEDS: PRAVASTATIN SODIUM 20 MG TABLET PO (21:31)
[2022-09-29] MEDS: SOTALOL HCL 80 MG TABLET PO (21:31)
[2022-09-29 22:03] LABS: Troponin I < 0.012 ng/mL (0.000-0.034)
[2022-09-30] VITALS (28 sets, daily range): BP systolic 97–146; BP diastolic 45–82; PULSE 60–89; RESP 16–100; TEMP 36.1–36.4; O2SAT 71–100
[2022-09-30] MEDS: IPRATROPIUM BR 0.02% INH SOLN 0.5 MG/2.5 ML VIAL INHALATION ×4 (02:08→20:04)
[2022-09-30] MEDS: ALBUTEROL SULFATE NEB 2.5 MG/3 ML INH 5 MG INHALATION ×2 (02:08→13:53)
[2022-09-30] MEDS: ACETYLCYSTEINE 20% INHAL SOLN 800 MG/4 ML VIAL 200 MG INHALATION ×2 (08:32→20:03)
[2022-09-30] MEDS: FLUTICASONE/UMECLIDIN/VILANTER 100-62.5-25 MCG ELLIPTA 1 PUFF INHALATION (08:32)
[2022-09-30] MEDS: SOTALOL HCL 40 MG TABLET PO (08:36)
[2022-09-30] MEDS: guaiFENesin 200 MG/10 ML UDC PO ×2 (08:36→21:23)
[2022-09-30] MEDS: GABAPENTIN 100 MG CAPSULE PO (08:38)
[2022-09-30] MEDS: POTASSIUM CHLORIDE 20 MEQ TABLET.ER PO (08:38)
[2022-09-30] MEDS: MAGNESIUM OXIDE 400 MG TABLET PO (08:38)
[2022-09-30] MEDS: ESCITALOPRAM OXALATE 5 MG TABLET PO (08:39)
[2022-09-30] MEDS: PANTOPRAZOLE 40 MG TABLET PO (08:39)
[2022-09-30] MEDS: MIRABEGRON 25 MG ER TABLET PO (08:39)
--- NOTE | 2022-09-30 09:46 | PM.PNPUL ---
Progress Note: A&P Assessment and Plan (1) Acute exacerbation of CHF (congestive heart failure): Code(s): I50.9 - Heart failure, unspecified Status: Acute (2) Anxiety: Code(s): F41.9 - Anxiety disorder, unspecified Status: Acute (3) Hypoxia: Code(s): R09.02 - Hypoxemia Status: Acute (4) COPD (chronic obstructive pulmonary disease): Code(s): J44.9 - Chronic obstructive pulmonary disease, unspecified Status: Acute Assessment and Plan: 72-year-old female with a very severe COPD recently hospitalized with a severe left a pneumonia for which she was adequately treated both inpatient and outpatient' she again presented with shortness of breath probably related to fluid overload. Diagnostic studies have shown partial clearing of left upper lobe pneumonia but also partial atelectasis of the left upper lobe likely related to intrabronchial mucus. new chest CT done yesterday showed mucus plugging in right lower lobe but no atelectasis on right. Left upper lobe partial atelectasis still present on chest CT. Physical exam today the patient has decreased breath sounds right lung posteriorly which is related to mucus plugging. Plan: Continue with pulmonary toilet short-acting bronchodilators nebulized Mucomyst added incentive spirometry. Will consider vibrating vest for increased bronchial secretions with mucus plugging right lower lobe. Case was discussed with the hospitalist. (5) Atrial fibrillation: Qualifiers: Atrial fibrillation type: unspecified Qualified Code(s): I48.91 - Unspecified atrial fibrillation Code(s): I48.91 - Unspecified atrial fibrillation Status: Acute (6) Severe protein-calorie malnutrition: Code(s): E43 - Unspecified severe protein-calorie malnutrition Status: Acute Subjective Date/time seen: 09/30/22 09:46 Interval history: patient had episode of worsening shortness of breath last p.m.. She was placed back on BiPAP support. She underwent chest CTA that showed no pulmonary emboli. There were mucus plugs in right lung. Currently doing better. She remains on higher oxygen flow than yesterday a.m.. shortness of breath about baseline. Has not been able to cough up any phlegm. She remains on nebulized short-acting bronchodilators and nebulized mucolytic agents. Review of Systems Review of Systems: All systems reviewed & are unremarkable except as noted in HPI and below ( HPI and below) Exam Narrative: GENERAL APPEARANCE: Well developed, emaciated, alert and cooperative, and appears to be in mild respiratory distress while on supplemental oxygen via nasal cannula. SKIN: Inspection of the skin reveals no rashes, ulcerations or petechiae. HEENT: Sclerae anicteric and conjunctivae pink and moist. Extraocular movements were intact and pupils were equal, round. The oral mucosa, hard and soft palate, tongue and posterior pharynx were normal. NECK: Supple. There was no thyroid enlargement, and no tenderness, or masses were felt. CHEST: increased AP diameter and normal contour without any kyphoscoliosis. LUNGS: Auscultation of the lungs revealed distant breath sounds bilaterally. CARDIAC: There was a regular rate and rhythm without any murmurs, gallops, rubs. ABDOMEN: Soft and nontender with normal bowel sounds. There was no organomegaly. LYMPH NODES: No lymphadenopathy was appreciated in the neck. EXTREMITIES: No cyanosis, clubbing or edema. NEUROLOGIC: Alert and oriented x 3. Normal affect. Objective Data Vital Signs Vital Signs: Vital Signs - 24 hr 09/29/22 09:51 09/29/22 13:19 09/29/22 14:19 Temperature Pulse Rate 70 67 Respiratory Rate 20 20 Blood Pressure Pulse Oximetry 92 79 L Oxygen Delivery Nasal Cannula Nasal Cannula Oxygen Flow Rate 2 2 Fraction of Inspired Oxygen 28 09/29/22 18:30 09/29/22 18:52 09/29/22 19:07 Temperature Pulse Rate Respiratory Rate Blood Pressure
[2022-09-30 12:02] LABS: Base Excess ABG 5.5 mEq/l (+/-2.0); Fractional Inspired Oxygen 100 %; HCO3 ABG 30.2 mEq/l (22.0-26.0); Oxygen Content ABG 16.9 %vol (16.0-22.0); Oxygen Saturation ABG 92.2 % (95.0-100.0); Oxyhemoglobin 90.9 % THb (90.0-100.0); PCO2 ABG 44.4 mmHg (35.0-45.0); PO2 ABG 60.6 mmHg (80.0-100.0); PO2 FiO2 Ratio Arterial Blood 0.61 %; Total Hemoglobin 13.2 g/dL (12.0-18.0); pH ABG 7.451 (7.350-7.450)
[2022-09-30 12:03] LABS: Device NON-INVASIVE VENT; Modified Allen's Test Pass; Non-Invasive Expiratory Pressure 7 CMH2O; Non-Invasive Inspiratory Pressure 15 CMH2O; Non-Invasive Vent Rate 12 /MIN; Site Drawn RIGHT RADIAL
[2022-09-30] MEDS: ALBUTEROL SULFATE NEB 2.5 MG/3 ML INH (12:07)
[2022-09-30 12:16] LABS: Glucose Point of Care 126 mg/dl (65-105)
[2022-09-30 12:22] LABS: Basophils Percent Auto 0.2 % (0.2-1.2); Eosinophils Absolute Auto 0.1 K/mm3 (0-0.3); Eosinophils Percent Auto 0.8 % (0-4.4); Hematocrit 38.7 % (37.0-47.0); Hemoglobin 12.2 g/dL (12.0-15.0); Immature Granulocyte Absolute 0.04 K/mm3 (0.00-0.031); Immature Granulocyte Percent A 0.3 % (0-0.5); Lymphocytes Absolute Auto 2.14 K/mm3 (0.9-3.2); Lymphocytes Percent Auto 18.6 % (18.3-44.2); Mean Corpuscular HGB Conc 31.5 g/dl (32-36); Mean Corpuscular Hemoglobin 31.3 pg (26-34); Mean Corpuscular Volume 99.2 fl (80-100); Mean Platelet Volume 9.8 fl (7.4-10.4); Monocytes Absolute Auto 0.9 K/mm3 (0.1-0.6); Monocytes Percent Auto 7.9 % (2.6-8.5); Neutrophils Absolute Auto 8.3 K/mm3 (1.3-6.7); Neutrophils Percent Auto 72.2 % (45.5-73.1); Platelet Count Result 218 k/mm3 (150-375); Red Cell Distribution Width 14.5 % (11.5-14.5); White Blood Count 11.5 K/mm3 (4.5-10.0)
[2022-09-30 12:31] LABS: Alanine Aminotransferase 14 U/L (6-35); Alkaline Phosphatase 73 U/L (38-126); Anion Gap 0 mmol/L (8-16); Aspartate Amino Transferase 20 U/L (14-36); Bilirubin,Total 0.8 mg/dL (0.2-1.3); Blood Urea Nitrogen 16 mg/dL (7-17); Calcium 8.8 mg/dL (8.4-10.2); Carbon Dioxide 34 mmol/L (22-30); Chloride 104 mmol/L (98-107); Estimated CRCL calculation 34 ml/min; Estimated Glomerular Filt Rate > 60; Glucose 108 mg/dL (65-110); Magnesium 2.1 mg/dL (1.6-2.3); Potassium 4.5 mmol/L (3.4-5.0); Sodium 138 mmol/L (137-145)
--- NOTE | 2022-09-30 13:16 | PCPTNOTE ---
The patient treatment was not able to be completed today due to change in patient's medical condition. Patient transferred to IMU. Will await further orders to resume PT.
--- NOTE | 2022-09-30 16:42 | PM.IMPN ---
Progress Note: A&P Assessment and Plan (1) Hypoxia: Code(s): R09.02 - Hypoxemia Status: Acute Assessment and Plan: Needing supplemental oxygen via nasal cannula. Refuse steroid Pulmonary consulted Underlying severe COPD Presented with left upper lobe pneumonia Right mucus plugging Nebulized Mucomyst/bronchodilator anothe rintermittent hypoxia needing BIPAP support. (2) Pneumonia: Qualifiers: Laterality: left Lung location: unspecified part of lung Pneumonia type: due to unspecified organism Qualified Code(s): J18.9 - Pneumonia, unspecified organism Code(s): J18.9 - Pneumonia, unspecified organism Status: Acute Assessment and Plan: CTA:? LL Pneumonia severe emphysema, pleural effusions small, 8 mm pulmonary nodule. IV antibiotic?Rocephin and Zithromax which has been now discontinued as suspicion for pneumonia is less will start zosyn, antibiotics. (3) Severe protein-calorie malnutrition: Code(s): E43 - Unspecified severe protein-calorie malnutrition Status: Acute (4) Hypertension: Code(s): I10 - Essential (primary) hypertension Status: Acute Assessment and Plan: 2D echo EF 70% History of atrial fibrillation already on?Xarelto and sotalol.? (5) Anxiety: Code(s): F41.9 - Anxiety disorder, unspecified Status: Acute Assessment and Plan: Anxiety: She started on?Lexapro add xanax low dose tid add lidoderm pach for shingles pain and anxiety from shingles. 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 will stop gabapentin due to possilbe etiolgy for worsneing hypoxia (6) COPD (chronic obstructive pulmonary disease): Code(s): J44.9 - Chronic obstructive pulmonary disease, unspecified Status: Acute Assessment and Plan: ad mitted with copd exacerbation and pneumonia Home oxygen evaluation prior to discharge Plan Lower extremity edema which she reports however no longer has any more Subjective Date/time seen: 09/30/22 16:42 Interval history: patient doing okay overnight, bipap at night. had another episode again with hypoxia needing bipap. discussed with icu and pulmonary Review of Systems Review of Systems: All systems reviewed & are unremarkable except as noted in HPI and below Exam Narrative: GENERAL: thin frail elderly lady not in acute distress HEAD: Normocephalic, atraumatic. RESPIRATORY: bilateral coarse breath sounds no wheezes CARDIOVASCULAR: Regular rate and rhythm without murmurs, rubs, or gallops. Peripheral pulses 2+ and equal bilaterally. ABDOMINAL: Soft, nontender, nondistended, no hepatosplenomegaly. Normoactive BS. MUSCULOSKELETAL: no Epigastric and no hypochondrial tenderness SKIN: Warm, dry, normal color. No rashes. NEURO: A&O X3. Moves all extremities PSYCHIATRIC: Anxious. Objective Data Vital Signs Vital Signs: Vital Signs - 24 hr 09/29/22 18:30 09/29/22 18:52 09/29/22 19:07 Temperature Pulse Rate Respiratory Rate Blood Pressure Pulse Oximetry 88 L 90 93 Oxygen Delivery High Flow Nasal Cannula High Flow Nasal Cannula Oxygen Flow Rate 6 6 7 09/29/22 20:00 09/29/22 20:45 09/29/22 20:45 Temperature Pulse Rate 75 75 Respiratory Rate 20 Blood Pressure Pulse Oximetry 95 93 Oxygen Delivery High Flow Nasal Cannula High Flow Nasal Cannula Oxygen Flow Rate 3 3 09/29/22 21:31 09/29/22 21:41 09/29/22 22:07 Temperature Pulse Rate 84 Respiratory Rate Blood Pressure Pulse Oximetry 90 92 Oxygen Delivery High Flow Nasal Cannula High Flow Nasal Cannula Oxygen Flow Rate 3.5 5 09/29/22 23:22 09/29/22 22:00 09/30/22 00:15 Temperature 97.8 F Pulse Rate 69 Respiratory Rate 18 Blood Pressure 121/69 Pulse Oximetry 99 99 80 L Oxygen Delivery High Flow Nasal Cannula High Flow Nasal Cannula Oxygen Flow Rate 3 3 09/30/22 00:45 09/30/22 00:57 09/30/22 02:20 Temperature Pulse Rate
--- NOTE | 2022-09-30 16:43 | PC.NURSE ---
Around 1430, Dr. Quesada and I went to see the patient per request of Dr. Deluca. Patient was evaluated by Dr. Quesada and during his assessment of the patient Dr. Sinclair entered the room as well. They had a discussion about the patient's plan of care. Dr. Quesada agreed to transfer the patient to ICU if need arised. Dr. Sinclair thought the patient could stay in IMU and be managed with himself and the hospitalist at this time. Around 1600, lengthy discussion had between family, patient, Dr. Sinclair, respiratory therapy and patient's nurse. Decision was made by patient/family to not proceed with the bronchoscopy at this time. Patient and family discussion ensued and patient still wishes to remain a full code at this time despite refusal to do bronchoscopy. All providers made aware of plan of care at this time. Pt. will continue to be managed by Dr. Sinclair and hospitalist service. Dr. Quesada made aware of decision to keep the patient in IMU.
[2022-09-30] MEDS: VANCOMYCIN HCL 500 MG in DEXTROSE 5% 100 ML IVPB (17:41)
[2022-09-30] MEDS: POTASSIUM CHLORIDE 20 MEQ PACKET (FOR LIQUID) PO (17:41)
[2022-09-30] MEDS: ALBUTEROL SULFATE NEB 2.5 MG/3 ML INH INHALATION (20:04)
[2022-09-30] MEDS: PRAVASTATIN SODIUM 20 MG TABLET PO (21:23)
[2022-09-30] MEDS: SOTALOL HCL 80 MG TABLET PO (21:23)
[2022-10-01] VITALS (24 sets, daily range): BP systolic 102–129; BP diastolic 59–72; PULSE 60–102; RESP 18–28; TEMP 36.1–36.6; O2SAT 95–99
[2022-10-01 04:00] LABS: Basophils Percent Auto 0.3 % (0.2-1.2); Eosinophils Absolute Auto 0.2 K/mm3 (0-0.3); Eosinophils Percent Auto 1.4 % (0-4.4); Hematocrit 35.2 % (37.0-47.0); Immature Granulocyte Absolute 0.05 K/mm3 (0.00-0.031); Immature Granulocyte Percent A 0.5 % (0-0.5); Lymphocytes Absolute Auto 2.29 K/mm3 (0.9-3.2); Lymphocytes Percent Auto 21.2 % (18.3-44.2); Mean Corpuscular HGB Conc 31.3 g/dl (32-36); Mean Corpuscular Hemoglobin 30.7 pg (26-34); Mean Corpuscular Volume 98.3 fl (80-100); Mean Platelet Volume 10.1 fl (7.4-10.4); Monocytes Absolute Auto 1.1 K/mm3 (0.1-0.6); Monocytes Percent Auto 9.7 % (2.6-8.5); Neutrophils Absolute Auto 7.2 K/mm3 (1.3-6.7); Neutrophils Percent Auto 66.9 % (45.5-73.1); Platelet Count Result 191 k/mm3 (150-375); Red Blood Count 3.58 M/mm3 (4.2-5.4); Red Cell Distribution Width 14.3 % (11.5-14.5); White Blood Count 10.8 K/mm3 (4.5-10.0)
[2022-10-01 04:10] LABS: Alanine Aminotransferase 13 U/L (6-35); Albumin Level 2.7 g/dL (3.5-5.1); Alkaline Phosphatase 73 U/L (38-126); Anion Gap 1 mmol/L (8-16); Aspartate Amino Transferase 18 U/L (14-36); Bilirubin,Total 0.5 mg/dL (0.2-1.3); Blood Urea Nitrogen 19 mg/dL (7-17); Calcium 8.4 mg/dL (8.4-10.2); Carbon Dioxide 33 mmol/L (22-30); Chloride 105 mmol/L (98-107); Estimated CRCL calculation 30 ml/min; Estimated Glomerular Filt Rate > 60; Glucose 86 mg/dL (65-110); Potassium 4.3 mmol/L (3.4-5.0); Sodium 139 mmol/L (137-145)
[2022-10-01] MEDS: ACETAMINOPHEN 500 MG TABLET PO ×2 (04:12→16:18)
[2022-10-01] MEDS: ACETYLCYSTEINE 20% INHAL SOLN 800 MG/4 ML VIAL 200 MG INHALATION ×2 (08:38→19:58)
[2022-10-01] MEDS: IPRATROPIUM BR 0.02% INH SOLN 0.5 MG/2.5 ML VIAL INHALATION ×3 (08:38→19:59)
[2022-10-01] MEDS: ALBUTEROL SULFATE NEB 2.5 MG/3 ML INH INHALATION ×3 (08:38→19:59)
[2022-10-01] MEDS: ESCITALOPRAM OXALATE 5 MG TABLET PO (09:15)
[2022-10-01] MEDS: LIDOCAINE 5% PATCH 1 PATCH TRANSDERM (09:15)
[2022-10-01] MEDS: guaiFENesin 200 MG/10 ML UDC PO ×2 (09:15→21:19)
[2022-10-01] MEDS: POTASSIUM CHLORIDE 20 MEQ PACKET (FOR LIQUID) PO ×2 (09:17→17:29)
[2022-10-01] MEDS: PANTOPRAZOLE 40 MG TABLET PO (09:17)
[2022-10-01] MEDS: SOTALOL HCL 40 MG TABLET PO (09:17)
[2022-10-01] MEDS: MIRABEGRON 25 MG ER TABLET PO (09:17)
[2022-10-01] MEDS: MAGNESIUM OXIDE 400 MG TABLET PO (09:18)
--- NOTE | 2022-10-01 10:48 | PM.PNPUL ---
Progress Note: A&P Assessment and Plan (1) Acute exacerbation of CHF (congestive heart failure): Code(s): I50.9 - Heart failure, unspecified Status: Acute (2) Anxiety: Code(s): F41.9 - Anxiety disorder, unspecified Status: Acute (3) Hypoxia: Code(s): R09.02 - Hypoxemia Status: Acute (4) COPD (chronic obstructive pulmonary disease): Code(s): J44.9 - Chronic obstructive pulmonary disease, unspecified Status: Acute Assessment and Plan: 72-year-old female with a very severe COPD recently hospitalized with a severe left a pneumonia for which she was adequately treated both inpatient and outpatient' she again presented with shortness of breath probably related to fluid overload. Diagnostic studies have shown partial clearing of left upper lobe pneumonia but also partial atelectasis of the left upper lobe likely related to intrabronchial mucus. Last chest CT done yesterday showed mucus plugging in right lower lobe but no atelectasis on right. Left upper lobe partial atelectasis still present on chest CT. Over the last 2 days the patient had had 2 episodes of increasing respiratory distress with worsening hypoxemia for which she was placed back on BiPAP support. Both episodes improved. She continues to have some chest congestion but because of weak cough she cannot cough up any phlegm. These episodes were probably related to mucus plugging as workup showed no new infiltrates and only mucus plugs in large bronchi especially on right. Patient refused therapeutic bronchoscopy yesterday. Her respiratory status is improved this a.m.. Plan: Continue with pulmonary toilet short-acting bronchodilators nebulized Mucomyst, incentive spirometry, Chest PT, chest vest. Lasix 20 given IV. resume direct anticoagulant. repeat CXR in am. (5) Atrial fibrillation: Qualifiers: Atrial fibrillation type: unspecified Qualified Code(s): I48.91 - Unspecified atrial fibrillation Code(s): I48.91 - Unspecified atrial fibrillation Status: Acute (6) Severe protein-calorie malnutrition: Code(s): E43 - Unspecified severe protein-calorie malnutrition Status: Acute Subjective Date/time seen: 10/01/22 10:48 Interval history: patient doing better this a.m.. Did not use BiPAP support last night. Tolerated chest PT, able to cough up some phlegm post chest PT/ suctioning. Has no new respiratory symptoms. Afebrile, started on antibiotics for elevated WBC. Last chest x-ray showed no new infiltrates. I&Os show positive fluid balance. Review of Systems Review of Systems: All systems reviewed & are unremarkable except as noted in HPI and below Exam Narrative: GENERAL APPEARANCE: Well developed, emaciated, alert and cooperative, and appears to be in mild respiratory distress while on supplemental oxygen via nasal cannula. SKIN: Inspection of the skin reveals no rashes, ulcerations or petechiae. HEENT: Sclerae anicteric and conjunctivae pink and moist. Extraocular movements were intact and pupils were equal, round. The oral mucosa, hard and soft palate, tongue and posterior pharynx were normal. NECK: Supple. There was no thyroid enlargement, and no tenderness, or masses were felt. CHEST: increased AP diameter and normal contour without any kyphoscoliosis. LUNGS: Auscultation of the lungs revealed distant breath sounds bilaterally. CARDIAC: There was a regular rate and rhythm without any murmurs, gallops, rubs. ABDOMEN: Soft and nontender with normal bowel sounds. There was no organomegaly. LYMPH NODES: No lymphadenopathy was appreciated in the neck. EXTREMITIES: No cyanosis, clubbing or edema. NEUROLOGIC: Alert and oriented x 3. Normal affect. Objective Data Vital Signs Vital Signs: Vital Signs - 24 hr 09/30/22 11:44 09/30/22 11:45 09/30/22 11:44 Temperature Pulse Rate 74 Respiratory Rate 32 H Blood Pressure Pulse Oximetry 71 L 73 L 72 L Oxygen
[2022-10-01] MEDS: FUROSEMIDE INJ 40 MG/4 ML VIAL 20 MG IV PUSH (11:50)
[2022-10-01] MEDS: FLUTICASONE/UMECLIDIN/VILANTER 100-62.5-25 MCG ELLIPTA 1 PUFF INHALATION (13:52)
--- NOTE | 2022-10-01 15:09 | PM.IMPN ---
Progress Note: A&P Assessment and Plan (1) Hypoxia: Code(s): R09.02 - Hypoxemia Status: Acute Assessment and Plan: Needing supplemental oxygen via nasal cannula. Refuse steroid Pulmonary consulted Underlying severe COPD Presented with left upper lobe pneumonia Right mucus plugging Nebulized Mucomyst/bronchodilator anothe rintermittent hypoxia needing BIPAP support. Suspected today to mucus plugging now on bronchodilators Mucomyst acetyl cystine VEST therapy acapella (2) Pneumonia: Qualifiers: Laterality: left Lung location: unspecified part of lung Pneumonia type: due to unspecified organism Qualified Code(s): J18.9 - Pneumonia, unspecified organism Code(s): J18.9 - Pneumonia, unspecified organism Status: Acute Assessment and Plan: CTA:? LL Pneumonia severe emphysema, pleural effusions small, 8 mm pulmonary nodule. IV antibiotic?Rocephin and Zithromax which has been now discontinued as suspicion for pneumonia is less will start zosyn, antibiotics. (3) Severe protein-calorie malnutrition: Code(s): E43 - Unspecified severe protein-calorie malnutrition Status: Acute (4) Hypertension: Code(s): I10 - Essential (primary) hypertension Status: Acute Assessment and Plan: 2D echo EF 70% History of atrial fibrillation already on?Xarelto and sotalol.? (5) Anxiety: Code(s): F41.9 - Anxiety disorder, unspecified Status: Acute Assessment and Plan: Anxiety: She started on?Lexapro add xanax low dose tid add lidoderm pach for shingles pain and anxiety from shingles. 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 will stop gabapentin due to possilbe etiolgy for worsneing hypoxia (6) COPD (chronic obstructive pulmonary disease): Code(s): J44.9 - Chronic obstructive pulmonary disease, unspecified Status: Acute Assessment and Plan: ad mitted with copd exacerbation and pneumonia Home oxygen evaluation prior to discharge Plan Lower extremity edema which she reports however no longer has any more Subjective Date/time seen: 10/01/22 15:09 Interval history: patient was taken off BiPAP yesterday and has been stable since he pinning on nasal cannula. Denies any new complaint today has cough shortness of breath on exertion, feeling much better today Review of Systems Review of Systems: All systems reviewed & are unremarkable except as noted in HPI and below Exam Narrative: GENERAL: thin frail elderly lady not in acute distress HEAD: Normocephalic, atraumatic. RESPIRATORY: bilateral coarse breath sounds no wheezes CARDIOVASCULAR: Regular rate and rhythm without murmurs, rubs, or gallops. Peripheral pulses 2+ and equal bilaterally. ABDOMINAL: Soft, nontender, nondistended, no hepatosplenomegaly. Normoactive BS. MUSCULOSKELETAL: no Epigastric and no hypochondrial tenderness SKIN: Warm, dry, normal color. No rashes. NEURO: A&O X3. Moves all extremities PSYCHIATRIC: Anxious. Objective Data Vital Signs Vital Signs: Vital Signs - 24 hr 09/30/22 17:00 09/30/22 20:10 09/30/22 20:00 Temperature 97.5 F L 96.9 F L Pulse Rate 86 89 77 Respiratory Rate 20 16 24 H Blood Pressure 103/81 108/45 L Pulse Oximetry 99 98 Oxygen Delivery Oxygen Flow Rate 09/30/22 21:23 09/30/22 20:00 10/01/22 00:00 Temperature 97.8 F Pulse Rate 79 71 Respiratory Rate 20 Blood Pressure 110/59 L Pulse Oximetry 95 98 Oxygen Delivery Nasal Cannula Oxygen Flow Rate 2 09/30/22 22:00 10/01/22 00:00 10/01/22 02:00 Temperature 96.9 F L Pulse Rate 77 64 Respiratory Rate 24 H Blood Pressure 108/45 L Pulse Oximetry 98 98 Oxygen Delivery Nasal Cannula Oxygen Flow Rate 2 10/01/22 00:00 09/30/22 22:00 09/30/22 20:00 Temperature Pulse Rate 66 71 77 Respiratory Rate Blood Pressure Pulse Oximetry Oxygen Delivery Oxygen Flow Rate 10/01/22 05:11 10/01/22 0
[2022-10-01] MEDS: VANCOMYCIN HCL 500 MG in DEXTROSE 5% 100 ML IVPB (16:19)
[2022-10-01] MEDS: RIVAROXABAN 15 MG TABLET PO (21:19)
[2022-10-01] MEDS: SOTALOL HCL 80 MG TABLET PO (21:20)
[2022-10-01] MEDS: PRAVASTATIN SODIUM 20 MG TABLET PO (21:20)
[2022-10-02] VITALS (23 sets, daily range): BP systolic 96–131; BP diastolic 55–75; PULSE 58–75; RESP 18–28; TEMP 35.9–36.7; O2SAT 93–100
[2022-10-02] MEDS: IPRATROPIUM BR 0.02% INH SOLN 0.5 MG/2.5 ML VIAL INHALATION ×4 (02:59→20:13)
[2022-10-02] MEDS: ALBUTEROL SULFATE NEB 2.5 MG/3 ML INH INHALATION ×4 (02:59→20:25)
[2022-10-02 03:52] LABS: Basophils Percent Auto 0.3 % (0.2-1.2); Eosinophils Absolute Auto 0.2 K/mm3 (0-0.3); Hematocrit 35.5 % (37.0-47.0); Hemoglobin 11.2 g/dL (12.0-15.0); Immature Granulocyte Absolute 0.05 K/mm3 (0.00-0.031); Immature Granulocyte Percent A 0.5 % (0-0.5); Lymphocytes Absolute Auto 2.05 K/mm3 (0.9-3.2); Lymphocytes Percent Auto 21.3 % (18.3-44.2); Mean Corpuscular HGB Conc 31.5 g/dl (32-36); Mean Corpuscular Hemoglobin 31.2 pg (26-34); Mean Corpuscular Volume 98.9 fl (80-100); Mean Platelet Volume 10.2 fl (7.4-10.4); Monocytes Absolute Auto 0.9 K/mm3 (0.1-0.6); Monocytes Percent Auto 8.9 % (2.6-8.5); Neutrophils Absolute Auto 6.4 K/mm3 (1.3-6.7); Platelet Count Result 178 k/mm3 (150-375); Red Blood Count 3.59 M/mm3 (4.2-5.4); Red Cell Distribution Width 14.4 % (11.5-14.5); White Blood Count 9.6 K/mm3 (4.5-10.0)
[2022-10-02 04:09] LABS: Alanine Aminotransferase 13 U/L (6-35); Alkaline Phosphatase 72 U/L (38-126); Anion Gap 1 mmol/L (8-16); Aspartate Amino Transferase 19 U/L (14-36); Bilirubin,Total 0.7 mg/dL (0.2-1.3); Blood Urea Nitrogen 17 mg/dL (7-17); Calcium 8.4 mg/dL (8.4-10.2); Carbon Dioxide 33 mmol/L (22-30); Chloride 99 mmol/L (98-107); Estimated CRCL calculation 29 ml/min; Estimated Glomerular Filt Rate > 60; Glucose 80 mg/dL (65-110); Magnesium 1.9 mg/dL (1.6-2.3); Potassium 3.9 mmol/L (3.4-5.0); Sodium 133 mmol/L (137-145)
[2022-10-02] MEDS: ACETYLCYSTEINE 20% INHAL SOLN 800 MG/4 ML VIAL 200 MG INHALATION ×2 (08:34→20:13)
[2022-10-02] MEDS: FLUTICASONE/UMECLIDIN/VILANTER 100-62.5-25 MCG ELLIPTA 1 PUFF INHALATION (08:49)
[2022-10-02] MEDS: SOTALOL HCL 40 MG TABLET PO (09:10)
[2022-10-02] MEDS: MAGNESIUM OXIDE 400 MG TABLET PO (09:10)
[2022-10-02] MEDS: ESCITALOPRAM OXALATE 5 MG TABLET PO (09:10)
[2022-10-02] MEDS: POTASSIUM CHLORIDE 20 MEQ PACKET (FOR LIQUID) PO ×2 (09:10→17:36)
[2022-10-02] MEDS: guaiFENesin 200 MG/10 ML UDC PO ×2 (09:11→22:01)
[2022-10-02] MEDS: MIRABEGRON 25 MG ER TABLET PO (09:11)
[2022-10-02] MEDS: PANTOPRAZOLE 40 MG TABLET PO (09:11)
--- NOTE | 2022-10-02 12:31 | PM.PNPUL ---
Progress Note: A&P Assessment and Plan (1) Acute exacerbation of CHF (congestive heart failure): Code(s): I50.9 - Heart failure, unspecified Status: Acute (2) Anxiety: Code(s): F41.9 - Anxiety disorder, unspecified Status: Acute (3) Hypoxia: Code(s): R09.02 - Hypoxemia Status: Acute (4) COPD (chronic obstructive pulmonary disease): Code(s): J44.9 - Chronic obstructive pulmonary disease, unspecified Status: Acute Assessment and Plan: 72-year-old female with a very severe COPD recently hospitalized with severe left pneumonia for which she was adequately treated both inpatient and outpatient' she again presented with shortness of breath probably related to atrial fibrillation/ fluid overload. Diagnostic studies have shown partial clearing of left upper lobe pneumonia but also partial atelectasis of the left upper lobe likely related to intrabronchial mucus. over the last 3- 4 days the patient had had episodes of increasing shortness of breath and hypoxemia for which she was treated with a BiPAP support. She had workup with CTA that showed no pulmonary embolism and these episodes were attributed to mucus plugging. The patient has been on aggressive pulmonary toilet with a nebulized short-acting bronchodilators, nebulized mucolytic agents, Acapella, a chest physical therapy chest vest. She refused therapeutic bronchoscopy. Over the last 36 hours the respiratory status has improved and patient remains off BiPAP. She continues with Acapella but not with chest physical therapy or vibrating vest. She received Lasix for possible fluid overload. Last chest x-ray raised question of worsening infiltrate on the left. In addition she has small pleural effusions bilaterally probably related to fluid overload. She was started on Zosyn and vancomycin for possible nosocomial infection. WBC back into normal range. on chest x-ray left partial atelectasis probably improved. Overall respiratory status significantly improved over the last 24 hours. Plan: Continue with pulmonary toilet as ordered. Repeat chest x-ray in a.m. Lasix 20 mg IV again today. (5) Atrial fibrillation: Qualifiers: Atrial fibrillation type: unspecified Qualified Code(s): I48.91 - Unspecified atrial fibrillation Code(s): I48.91 - Unspecified atrial fibrillation Status: Acute (6) Severe protein-calorie malnutrition: Code(s): E43 - Unspecified severe protein-calorie malnutrition Status: Acute Subjective Date/time seen: 10/02/22 12:31 Interval history: patient doing better. Did not tolerate chest physical therapy or vibrating vest yesterday. She is having nebulized short-acting bronchodilators, nebulized mucolytic agent daily. remains on supplemental oxygen via nasal cannula has not used BiPAP support for more than 36 hours lately. WBC within normal range. Received Lasix for fluid overload yesterday. Review of Systems Review of Systems: All systems reviewed & are unremarkable except as noted in HPI and below ( HPI and below) Exam Narrative: GENERAL APPEARANCE: Well developed, emaciated, alert and cooperative, and appears to be in mild respiratory distress while on supplemental oxygen via nasal cannula. SKIN: Inspection of the skin reveals no rashes, ulcerations or petechiae. HEENT: Sclerae anicteric and conjunctivae pink and moist. Extraocular movements were intact and pupils were equal, round. The oral mucosa, hard and soft palate, tongue and posterior pharynx were normal. NECK: Supple. There was no thyroid enlargement, and no tenderness, or masses were felt. CHEST: increased AP diameter and normal contour without any kyphoscoliosis. LUNGS: Auscultation of the lungs revealed distant breath sounds bilaterally. CARDIAC: There was a regular rate and rhythm without any murmurs, gallops, rubs. ABDOMEN: Soft and nontender with normal bowel sounds. There was no organomegaly. LYM
--- NOTE | 2022-10-02 13:46 | PM.IMPN ---
Progress Note: A&P Assessment and Plan (1) Hypoxia: Code(s): R09.02 - Hypoxemia Status: Acute Assessment and Plan: Needing supplemental oxygen via nasal cannula. Refuse steroid Pulmonary consulted Underlying severe COPD Presented with left upper lobe pneumonia Right mucus plugging Nebulized Mucomyst/bronchodilator anothe rintermittent hypoxia needing BIPAP support. Suspected today to mucus plugging now on bronchodilators Mucomyst acetyl cystine VEST therapy acapella. Chest x-ray 10/02 reviewed (2) Pneumonia: Qualifiers: Laterality: left Lung location: unspecified part of lung Pneumonia type: due to unspecified organism Qualified Code(s): J18.9 - Pneumonia, unspecified organism Code(s): J18.9 - Pneumonia, unspecified organism Status: Acute Assessment and Plan: CTA:? LL Pneumonia severe emphysema, pleural effusions small, 8 mm pulmonary nodule. IV antibiotic?Rocephin and Zithromax which has been now discontinued as suspicion for pneumonia is less will start zosyn, antibiotics. (3) Severe protein-calorie malnutrition: Code(s): E43 - Unspecified severe protein-calorie malnutrition Status: Acute (4) Hypertension: Code(s): I10 - Essential (primary) hypertension Status: Acute Assessment and Plan: 2D echo EF 70% History of atrial fibrillation already on?Xarelto and sotalol.? (5) Anxiety: Code(s): F41.9 - Anxiety disorder, unspecified Status: Acute Assessment and Plan: Anxiety: She started on?Lexapro add xanax low dose tid add lidoderm pach for shingles pain and anxiety from shingles. 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 will stop gabapentin due to possilbe etiolgy for worsneing hypoxia (6) COPD (chronic obstructive pulmonary disease): Code(s): J44.9 - Chronic obstructive pulmonary disease, unspecified Status: Acute Assessment and Plan: ad mitted with copd exacerbation and pneumonia Home oxygen evaluation prior to discharge Add Flonase nasal spray Plan Lower extremity edema which she reports however no longer has any more Subjective Date/time seen: 10/02/22 13:46 Interval history: no overnight events. States her ears are feeling full and can hear less. Denies any pain. No fever chills. Breathing is okay. Did not require any BiPAP. Still has cough and unable to expectorate. family at bedside and discussed with them Review of Systems Review of Systems: All systems reviewed & are unremarkable except as noted in HPI and below Exam Narrative: GENERAL: thin frail elderly lady not in acute distress HEAD: Normocephalic, atraumatic. RESPIRATORY: bilateral coarse breath sounds no wheezes CARDIOVASCULAR: Regular rate and rhythm without murmurs, rubs, or gallops. Peripheral pulses 2+ and equal bilaterally. ABDOMINAL: Soft, nontender, nondistended, no hepatosplenomegaly. Normoactive BS. MUSCULOSKELETAL: no Epigastric and no hypochondrial tenderness SKIN: Warm, dry, normal color. No rashes. NEURO: A&O X3. Moves all extremities PSYCHIATRIC: calm Objective Data Vital Signs Vital Signs: Vital Signs - 24 hr 10/01/22 13:47 10/01/22 14:07 10/01/22 14:00 Temperature Pulse Rate 86 89 72 Respiratory Rate 18 18 Blood Pressure Pulse Oximetry Oxygen Delivery Oxygen Flow Rate 10/01/22 16:00 10/01/22 14:00 10/01/22 16:00 Temperature 97.3 F L Pulse Rate 66 72 66 Respiratory Rate 24 H Blood Pressure 106/65 Pulse Oximetry 95 Oxygen Delivery Oxygen Flow Rate 10/01/22 18:00 10/01/22 16:00 10/01/22 20:03 Temperature Pulse Rate 68 Respiratory Rate Blood Pressure Pulse Oximetry 95 97 Oxygen Delivery Nasal Cannula High Flow Nasal Cannula Oxygen Flow Rate 2 2 10/01/22 20:04 10/01/22 20:47 10/01/22 21:20 Temperature 97.4 F L Pulse Rate 68 66 66 Respiratory Rate 18 20 Blood Pressure 107/61 Pulse Oximetry
[2022-10-02] MEDS: VANCOMYCIN HCL 500 MG in DEXTROSE 5% 100 ML IVPB (15:02)
[2022-10-02] MEDS: FUROSEMIDE INJ 40 MG/4 ML VIAL 20 MG IV PUSH (15:02)
[2022-10-02] MEDS: ACETAMINOPHEN 500 MG TABLET PO (22:00)
[2022-10-02] MEDS: FLUTICASONE PROPIONATE 0.05% NA SPR 16 GM BTL (*BKC) 1 SPRAY NASAL (22:01)
[2022-10-02] MEDS: PRAVASTATIN SODIUM 20 MG TABLET PO (22:01)
[2022-10-02] MEDS: RIVAROXABAN 15 MG TABLET PO (22:01)
[2022-10-02] MEDS: SOTALOL HCL 80 MG TABLET PO (22:02)
[2022-10-03] VITALS (23 sets, daily range): BP systolic 108–134; BP diastolic 61–77; PULSE 57–79; RESP 18–24; TEMP 36.4–37; O2SAT 94–98
[2022-10-03] MEDS: IPRATROPIUM BR 0.02% INH SOLN 0.5 MG/2.5 ML VIAL INHALATION ×4 (02:20→20:23)
[2022-10-03] MEDS: ALBUTEROL SULFATE NEB 2.5 MG/3 ML INH INHALATION ×4 (02:20→20:23)
[2022-10-03 05:12] LABS: Basophils Percent Auto 0.4 % (0.2-1.2); Eosinophils Absolute Auto 0.3 K/mm3 (0-0.3); Eosinophils Percent Auto 2.4 % (0-4.4); Hematocrit 36.3 % (37.0-47.0); Hemoglobin 11.4 g/dL (12.0-15.0); Immature Granulocyte Absolute 0.05 K/mm3 (0.00-0.031); Immature Granulocyte Percent A 0.4 % (0-0.5); Lymphocytes Absolute Auto 2.51 K/mm3 (0.9-3.2); Lymphocytes Percent Auto 22.5 % (18.3-44.2); Mean Corpuscular HGB Conc 31.4 g/dl (32-36); Mean Corpuscular Hemoglobin 31.1 pg (26-34); Mean Corpuscular Volume 98.9 fl (80-100); Mean Platelet Volume 10.3 fl (7.4-10.4); Neutrophils Absolute Auto 7.3 K/mm3 (1.3-6.7); Neutrophils Percent Auto 65.3 % (45.5-73.1); Platelet Count Result 200 k/mm3 (150-375); Red Blood Count 3.67 M/mm3 (4.2-5.4); Red Cell Distribution Width 14.4 % (11.5-14.5); White Blood Count 11.2 K/mm3 (4.5-10.0)
[2022-10-03 06:46] LABS: Alanine Aminotransferase 15 U/L (6-35); Albumin Level 3.1 g/dL (3.5-5.1); Alkaline Phosphatase 82 U/L (38-126); Anion Gap 7 mmol/L (8-16); Aspartate Amino Transferase 19 U/L (14-36); Bilirubin,Total 0.7 mg/dL (0.2-1.3); Blood Urea Nitrogen 15 mg/dL (7-17); Calcium 8.4 mg/dL (8.4-10.2); Carbon Dioxide 30 mmol/L (22-30); Chloride 100 mmol/L (98-107); Estimated CRCL calculation 25 ml/min; Estimated Glomerular Filt Rate > 60; Glucose 175 mg/dL (65-110); Magnesium 1.8 mg/dL (1.6-2.3); Potassium 3.6 mmol/L (3.4-5.0); Sodium 137 mmol/L (137-145)
[2022-10-03] MEDS: ACETYLCYSTEINE 20% INHAL SOLN 800 MG/4 ML VIAL 200 MG INHALATION ×2 (09:48→20:23)
[2022-10-03] MEDS: PANTOPRAZOLE 40 MG TABLET PO (10:01)
[2022-10-03] MEDS: MIRABEGRON 25 MG ER TABLET PO (10:01)
[2022-10-03] MEDS: MAGNESIUM OXIDE 400 MG TABLET PO (10:01)
[2022-10-03] MEDS: FLUTICASONE PROPIONATE 0.05% NA SPR 16 GM BTL (*BKC) 1 SPRAY NASAL ×2 (10:01→22:07)
[2022-10-03] MEDS: SOTALOL HCL 40 MG TABLET PO (10:02)
[2022-10-03] MEDS: POTASSIUM CHLORIDE 20 MEQ PACKET (FOR LIQUID) PO ×2 (10:02→16:27)
[2022-10-03] MEDS: ESCITALOPRAM OXALATE 5 MG TABLET PO (10:02)
[2022-10-03] MEDS: guaiFENesin 200 MG/10 ML UDC PO ×2 (10:02→22:07)
[2022-10-03] MEDS: LIDOCAINE 5% PATCH 1 PATCH TRANSDERM (10:02)
--- NOTE | 2022-10-03 13:00 | PCNFU ---
Nutrition Follow-Up Complete: Severe malnutrition related to inadequate protein energy intake as evidenced by less than 50% oral intake of estimated needs and visible subcutaneious fat loss and muscle wasting in all areas. Goal: PO intake 50% or greater for meals and supplements. Pt is meeting goal. Nutrition recommendation: Continue with current plan of care Pt current nutrition is Heart healthy. Last recorded weight is 33.5 kg - stable. Bowel Motility: +BM 09/30 Labs Reviewed: hgb:11.8, Alb:3.2, NA:135, BUN:22 Meds Noted: lasix, protonix, zofran, KCL Skin: WNL Additional Notes: pt continues on a heart healthy diet. Intake good at 50-100% of meals, Ensure clear TID in place per previous recommendation. Continue to encourage good intake of meals and supplements. Monitor intake, wt, labs. Follow up in 7 days.
--- NOTE | 2022-10-03 13:19 | PM.PNPUL ---
Progress Note: A&P Assessment and Plan (1) COPD (chronic obstructive pulmonary disease): Code(s): J44.9 - Chronic obstructive pulmonary disease, unspecified Status: Acute Assessment and Plan: 72-year-old female with a very severe COPD recently hospitalized with severe left? pneumonia for which she was adequately treated both inpatient and outpatient' she again presented with shortness of breath probably related to atrial fibrillation/ fluid overload.? Diagnostic studies have shown partial clearing of left upper lobe pneumonia but also partial atelectasis of the left upper lobe likely related to intrabronchial mucus. ? over the last 3- 4 days the patient had had episodes of increasing shortness of breath and hypoxemia for which she was treated with a BiPAP support.? She had workup with CTA that showed no pulmonary embolism and these episodes were attributed to mucus plugging.? The patient has been on aggressive pulmonary toilet with a nebulized short-acting bronchodilators, nebulized mucolytic agents, Acapella, a chest physical therapy chest? vest.? She refused therapeutic bronchoscopy.? Over the last 36 hours the respiratory status has improved and patient remains off BiPAP.? She continues with? Acapella but not with chest physical therapy or vibrating vest.? She received Lasix for possible fluid overload.? Last chest x-ray raised question of worsening infiltrate on the left.? In addition she has small pleural effusions bilaterally probably related to fluid overload.? She was started on Zosyn and vancomycin for possible nosocomial infection.? WBC back into normal range. ? on chest x-ray left partial atelectasis probably improved. Overall respiratory status significantly improved over the last 24 hours. She received ceftriaxone and azithromycin from 09/24 through 09/27. Patient was started on vancomycin and Zosyn on 09/30. 10/02 patient doing better.? Did not tolerate chest physical therapy or vibrating vest yesterday.? She is having nebulized short-acting bronchodilators, nebulized mucolytic agent daily.? remains on supplemental oxygen via nasal cannula has not used BiPAP support for more than 36 hours lately.? WBC within normal range.? Received Lasix for fluid overload yesterday. 10/02/22 Plan:? ? Continue with pulmonary toilet as ordered.? Repeat chest x-ray in a.m. Lasix 20 mg IV again today. 10/03 Patient is slowly improving. She has not had any more acute episodes of shortness of breath requiring BiPAP since 09/30. She is on 2 L nasal cannula saturations 98%. White blood cell count is 11.2. Creatinine is 0.9. Her weight today is 33.5 which is decreased from 37.2 on admission. chest x-ray today with stable left mid lung zone infiltrate compared to 10/02/2022. Continue vancomycin and Zosyn, day 4, and this is day 10 total IV antibiotics. Continue trilogy 100 - 62.5-25 at 1 puff q.day, Mucomyst q.12 hours, guaifenesin 200 mg p.o. q.12 hours. I will change her albuterol and ipratropium nebulizers to Q 6 hours while awake. aggressive physical therapy and occupational therapy. Out of bed and ambulation and room as tolerated. Discussed with Dr. Deluca, will follow with you Subjective Date/time seen: 10/03/22 13:19 Interval history: 09/27/22 New consult for fluid overload, rle weakness Narrative: ?this 72-year-old female presented with a shortness of breath and leg weakness.? The patient is well known to me.? She has? history of severe COPD, chronic hypoxemic respiratory failure, frequent COPD exacerbations previous hospitalization for Pseudomonas infection.? she was hospitalized? approximately 1 month ago with a severe? left upper lobe pneumonia patient was treated with antibiotics including imipenem for possible recurrence of Pseudomonas infection.? She was discharged approximately 18 days ago on supplemental oxygen, nebulized short-acting bronchodilators levofloxacin (completed 09/19/2022) and Augmentin (scheduled 6 weeks to f
[2022-10-03] MEDS: FLUTICASONE/UMECLIDIN/VILANTER 100-62.5-25 MCG ELLIPTA 1 PUFF INHALATION (13:58)
[2022-10-03 15:21] LABS: Vancomycin Trough 7.6 ug/mL (10.0-20.0)
--- NOTE | 2022-10-03 15:27 | PM.IMPN ---
Progress Note: A&P Assessment and Plan (1) Hypoxia: Code(s): R09.02 - Hypoxemia Status: Acute Assessment and Plan: Needing supplemental oxygen via nasal cannula. Refuse steroid Pulmonary consulted Underlying severe COPD Presented with left upper lobe pneumonia Right mucus plugging Nebulized Mucomyst/bronchodilator anothe rintermittent hypoxia needing BIPAP support. Suspected today to mucus plugging now on bronchodilators Mucomyst acetyl cystine VEST therapy acapella. Chest x-ray 10/02 reviewed (2) Pneumonia: Qualifiers: Laterality: left Lung location: unspecified part of lung Pneumonia type: due to unspecified organism Qualified Code(s): J18.9 - Pneumonia, unspecified organism Code(s): J18.9 - Pneumonia, unspecified organism Status: Acute Assessment and Plan: CTA:? LL Pneumonia severe emphysema, pleural effusions small, 8 mm pulmonary nodule. IV antibiotic?Rocephin and Zithromax which has been now discontinued as suspicion for pneumonia is less will start zosyn, and vancomycin continue same discussed with pulmonary (3) Severe protein-calorie malnutrition: Code(s): E43 - Unspecified severe protein-calorie malnutrition Status: Acute (4) Hypertension: Code(s): I10 - Essential (primary) hypertension Status: Acute Assessment and Plan: 2D echo EF 70% History of atrial fibrillation already on?Xarelto and sotalol.? (5) Anxiety: Code(s): F41.9 - Anxiety disorder, unspecified Status: Acute Assessment and Plan: Anxiety: She started on?Lexapro add xanax low dose tid add lidoderm pach for shingles pain and anxiety from shingles. 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 will stop gabapentin due to possilbe etiolgy for worsneing hypoxia (6) COPD (chronic obstructive pulmonary disease): Code(s): J44.9 - Chronic obstructive pulmonary disease, unspecified Status: Acute Assessment and Plan: ad mitted with copd exacerbation and pneumonia Home oxygen evaluation prior to discharge Add Flonase nasal spray Plan Lower extremity edema which she reports however no longer has any more Subjective Date/time seen: 10/03/22 15:27 Interval history: no overngiht events, doing well. ears are opening up some today. coughing some mucus and easier to cough now. no fever, chills, sob and chest pain reported. sob on exertion. discussed with family Review of Systems Review of Systems: All systems reviewed & are unremarkable except as noted in HPI and below Exam Narrative: GENERAL: thin frail elderly lady not in acute distress HEAD: Normocephalic, atraumatic. RESPIRATORY: bilateral coarse breath sounds no wheezes CARDIOVASCULAR: Regular rate and rhythm without murmurs, rubs, or gallops. Peripheral pulses 2+ and equal bilaterally. ABDOMINAL: Soft, nontender, nondistended, no hepatosplenomegaly. Normoactive BS. MUSCULOSKELETAL: no Epigastric and no hypochondrial tenderness SKIN: Warm, dry, normal color. No rashes. NEURO: A&O X3. Moves all extremities PSYCHIATRIC: calm Objective Data Vital Signs Vital Signs: Vital Signs - 24 hr 10/02/22 16:00 10/02/22 16:00 10/02/22 16:00 Temperature 96.7 F L Pulse Rate 63 58 L Respiratory Rate 20 Blood Pressure 119/55 L Pulse Oximetry 98 98 Oxygen Delivery Nasal Cannula Oxygen Flow Rate 2 Fraction of Inspired Oxygen 10/02/22 17:58 10/02/22 20:16 10/02/22 20:29 Temperature Pulse Rate 64 67 73 Respiratory Rate 18 18 Blood Pressure Pulse Oximetry Oxygen Delivery Oxygen Flow Rate Fraction of Inspired Oxygen 10/02/22 20:00 10/02/22 20:00 10/02/22 22:02 Temperature 97.5 F L Pulse Rate 64 73 73 Respiratory Rate 20 18 Blood Pressure 131/67 Pulse Oximetry 100 100 Oxygen Delivery Nasal Cannula Oxygen Flow Rate 2 Fraction of Inspired Oxygen 28 10/02/22 23:33 10/02/22 20:00 10/02/22 22:00 [place]
[2022-10-03] MEDS: SOTALOL HCL 80 MG TABLET PO (22:05)
[2022-10-03] MEDS: ACETAMINOPHEN 500 MG TABLET PO (22:06)
[2022-10-03] MEDS: PRAVASTATIN SODIUM 20 MG TABLET PO (22:06)
[2022-10-03] MEDS: RIVAROXABAN 15 MG TABLET PO (22:06)
[2022-10-04] VITALS (19 sets, daily range): BP systolic 119–136; BP diastolic 60–90; PULSE 60–75; RESP 14–22; TEMP 36.4–37.4; O2SAT 94–100
[2022-10-04 05:07] LABS: Basophils Absolute Auto 0.1 K/mm3 (0.0-0.1); Basophils Percent Auto 0.4 % (0.2-1.2); Eosinophils Absolute Auto 0.2 K/mm3 (0-0.3); Eosinophils Percent Auto 1.9 % (0-4.4); Hematocrit 38.6 % (37.0-47.0); Hemoglobin 12.1 g/dL (12.0-15.0); Immature Granulocyte Absolute 0.04 K/mm3 (0.00-0.031); Immature Granulocyte Percent A 0.4 % (0-0.5); Lymphocytes Absolute Auto 2.03 K/mm3 (0.9-3.2); Mean Corpuscular HGB Conc 31.3 g/dl (32-36); Mean Corpuscular Hemoglobin 31.2 pg (26-34); Mean Corpuscular Volume 99.5 fl (80-100); Mean Platelet Volume 10.6 fl (7.4-10.4); Neutrophils Absolute Auto 7.9 K/mm3 (1.3-6.7); Neutrophils Percent Auto 70.3 % (45.5-73.1); Platelet Count Result 203 k/mm3 (150-375); Red Blood Count 3.88 M/mm3 (4.2-5.4); Red Cell Distribution Width 14.5 % (11.5-14.5); White Blood Count 11.3 K/mm3 (4.5-10.0)
[2022-10-04 06:52] LABS: Alanine Aminotransferase 14 U/L (6-35); Albumin Level 2.9 g/dL (3.5-5.1); Alkaline Phosphatase 74 U/L (38-126); Anion Gap 3 mmol/L (8-16); Aspartate Amino Transferase 23 U/L (14-36); Bilirubin,Total 0.7 mg/dL (0.2-1.3); Blood Urea Nitrogen 16 mg/dL (7-17); Calcium 8.9 mg/dL (8.4-10.2); Carbon Dioxide 29 mmol/L (22-30); Chloride 106 mmol/L (98-107); Estimated CRCL calculation 32 ml/min; Estimated Glomerular Filt Rate > 60; Glucose 116 mg/dL (65-110); Magnesium 1.9 mg/dL (1.6-2.3); Potassium 4.2 mmol/L (3.4-5.0); Sodium 138 mmol/L (137-145)
[2022-10-04] MEDS: ALBUTEROL SULFATE NEB 2.5 MG/3 ML INH INHALATION ×3 (07:32→19:39)
[2022-10-04] MEDS: IPRATROPIUM BR 0.02% INH SOLN 0.5 MG/2.5 ML VIAL INHALATION ×3 (07:32→19:39)
[2022-10-04] MEDS: ACETYLCYSTEINE 20% INHAL SOLN 800 MG/4 ML VIAL 200 MG INHALATION (07:32)
[2022-10-04] MEDS: FLUTICASONE/UMECLIDIN/VILANTER 100-62.5-25 MCG ELLIPTA 1 PUFF INHALATION (07:59)
[2022-10-04] MEDS: ESCITALOPRAM OXALATE 5 MG TABLET PO (09:09)
[2022-10-04] MEDS: MAGNESIUM OXIDE 400 MG TABLET PO (09:09)
[2022-10-04] MEDS: POTASSIUM CHLORIDE 20 MEQ PACKET (FOR LIQUID) PO ×2 (09:09→17:20)
[2022-10-04] MEDS: FLUTICASONE PROPIONATE 0.05% NA SPR 16 GM BTL (*BKC) 1 SPRAY NASAL ×2 (09:09→21:31)
[2022-10-04] MEDS: PANTOPRAZOLE 40 MG TABLET PO (09:09)
[2022-10-04] MEDS: SOTALOL HCL 40 MG TABLET PO (09:09)
[2022-10-04] MEDS: LIDOCAINE 5% PATCH 1 PATCH TRANSDERM (09:09)
[2022-10-04] MEDS: guaiFENesin 200 MG/10 ML UDC PO ×2 (09:09→21:47)
[2022-10-04] MEDS: MIRABEGRON 25 MG ER TABLET PO (09:10)
--- NOTE | 2022-10-04 09:36 | P.PNPL_ITS ---
Progress Note: A&P Assessment and Plan (1) COPD (chronic obstructive pulmonary disease): Code(s): J44.9 - Chronic obstructive pulmonary disease, unspecified Status: Acute Assessment and Plan: 72-year-old female with a very severe COPD recently hospitalized with severe left? pneumonia for which she was adequately treated both inpatient and outpatient' she again presented with shortness of breath probably related to atrial fibrillation/ fluid overload.? Diagnostic studies have shown partial clearing of left upper lobe pneumonia but also partial atelectasis of the left upper lobe likely related to intrabronchial mucus. ? over the last 3- 4 days the patient had had episodes of increasing shortness of breath and hypoxemia for which she was treated with a BiPAP support.? She had workup with CTA that showed no pulmonary embolism and these episodes were attributed to mucus plugging.? The patient has been on aggressive pulmonary toilet with a nebulized short-acting bronchodilators, nebulized mucolytic agents, Acapella, a chest physical therapy chest? vest.? She refused therapeutic bronchoscopy.? Over the last 36 hours the respiratory status has improved and patient remains off BiPAP.? She continues w ith? Acapella but not with chest physical therapy or vibrating vest.? She received Lasix for possible fluid overload.? Last chest x-ray raised question of worsening infiltrate on the left.? In addition she has small pleural effusions bilaterally probably related to fluid overload.? She was started on Zosyn and vancomycin for possible nosocomial infection.? WBC back into normal range. ? on chest x-ray left partial atelectasis probably improved. Overall respiratory status significantly improved over the last 24 hours. She received ceftriaxone and azithromycin from 09/24 through 09/27. Patient was started on vancomycin and Zosyn on 09/30. 10/02 patient doing better.? Did not tolerate chest physical therapy or vibrating vest yesterday.? She is having nebulized short-acting bronchodilators, nebulized mucolytic agent daily.? remains on supplemental oxygen via nasal cannula has not used BiPAP support for more than 36 hours lately.? WBC within normal range.? Received Lasix for fluid overload yesterday. 10/02/22 Plan:? ? Continue with pulmonary toilet as ordered.? Repeat chest x-ray in a.m. Lasix 20 mg IV again today. 10/03 Patient is slowly improving. She has not had any more acute episodes of shortness of breath requiring BiPAP since 09/30. She is on 2 L nasal cannula saturations 98%. White blood cell count is 11.2. Creatinine is 0.9. Her weight today is 33.5 which is decreased from 37.2 on admission. chest x-ray today with stable left mid lung zone infiltrate compared to 10/02/2022. Continue vancomycin and Zosyn, day 4, and this is day 10 total IV antibiotics. Continue trilogy 100 - 62.5-25 at 1 puff q.day, Mucomyst q.12 hours, guaifenesin 200 mg p.o. q.12 hours. I will change her albuterol and ipratropium nebulizers to Q 6 hours while awake. aggressive physical therapy and occupational therapy. Out of bed and ambulation and room as tolerated. 10/04 patient continues to slowly improve. States that her sputum is thinner. She is ambulating in the room at 46 ft. She is on 2 L nasal cannula saturations 97%. White blood cell count 11.3, creatinine 0.7. She tells me Mucomyst is irritating her and it does not help her expectorate the sputum and will discontinue Continue vancomycin and Zosyn, day 5, and this is day 11 total IV antibiotics. Continue trilogy 100 - 62.5-25 at 1 puff q.day, guaifenesin 200 mg p.o. q.12 hours IC, PEP, and albuterol and ipratropium nebulizers to Q 6 hours while awake. she cannot tolerate the vibratory vest due to her post h
--- NOTE | 2022-10-04 13:34 | PM.IMPN ---
Progress Note: A&P Assessment and Plan (1) Hypoxia: Code(s): R09.02 - Hypoxemia Status: Acute Assessment and Plan: Needing supplemental oxygen via nasal cannula. Refused steroid Pulmonary consulted Underlying severe COPD Presented with left upper lobe pneumonia Right mucus plugging Nebulized Mucomyst/bronchodilator intermittent hypoxia needing BIPAP support X2. Suspected. Related to mucus plugging now on bronchodilators Mucomyst acetyl cystine VEST therapy acapella. could not tolerate vest due to shingles neuropathy on right arm /chest Chest x-ray 10/02 reviewed (2) Pneumonia: Qualifiers: Laterality: left Lung location: unspecified part of lung Pneumonia type: due to unspecified organism Qualified Code(s): J18.9 - Pneumonia, unspecified organism Code(s): J18.9 - Pneumonia, unspecified organism Status: Acute Assessment and Plan: CTA:? LL Pneumonia severe emphysema, pleural effusions small, 8 mm pulmonary nodule. IV antibiotic?Rocephin and Zithromax which has been now discontinued as suspicion for pneumonia is less started on zosyn, and vancomycin continue same for 2 more days discussed with pulmonary (3) Severe protein-calorie malnutrition: Code(s): E43 - Unspecified severe protein-calorie malnutrition Status: Acute (4) Hypertension: Code(s): I10 - Essential (primary) hypertension Status: Acute Assessment and Plan: 2D echo EF 70% History of atrial fibrillation already on?Xarelto and sotalol.? (5) Anxiety: Code(s): F41.9 - Anxiety disorder, unspecified Status: Acute Assessment and Plan: Anxiety: She started on?Lexapro add xanax low dose tid add lidoderm pach for shingles pain and anxiety from shingles. 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 will stop gabapentin due to possilbe etiolgy for worsneing hypoxia (6) COPD (chronic obstructive pulmonary disease): Code(s): J44.9 - Chronic obstructive pulmonary disease, unspecified Status: Acute Assessment and Plan: ad mitted with copd exacerbation and pneumonia Home oxygen evaluation prior to dischargeAnticipated 10/06/2022 Add Flonase nasal spray Plan Lower extremity edema which she reports however no longer has any more Subjective Date/time seen: 10/04/22 13:34 Interval history: No overnight events. Feeling well. Cough present. Shortness of breath have improved. Remains on the same oxygen level. Review of Systems Review of Systems: All systems reviewed & are unremarkable except as noted in HPI and below Exam Narrative: GENERAL: thin frail elderly lady not in acute distress HEAD: Normocephalic, atraumatic. RESPIRATORY: bilateral coarse breath sounds no wheezes CARDIOVASCULAR: Regular rate and rhythm without murmurs, rubs, or gallops. Peripheral pulses 2+ and equal bilaterally. ABDOMINAL: Soft, nontender, nondistended, no hepatosplenomegaly. Normoactive BS. MUSCULOSKELETAL: no Epigastric and no hypochondrial tenderness SKIN: Warm, dry, normal color. No rashes. NEURO: A&O X3. Moves all extremities PSYCHIATRIC: calm Objective Data Vital Signs Vital Signs: Vital Signs - 24 hr 10/03/22 13:45 10/03/22 14:03 10/03/22 14:00 Temperature Pulse Rate 78 79 66 Respiratory Rate 18 18 Blood Pressure Pulse Oximetry Oxygen Delivery Oxygen Flow Rate Fraction of Inspired Oxygen 10/03/22 16:00 10/03/22 16:00 10/03/22 18:00 Temperature 97.6 F Pulse Rate 61 59 L 69 Respiratory Rate 24 H Blood Pressure 120/64 Pulse Oximetry 98 Oxygen Delivery Oxygen Flow Rate Fraction of Inspired Oxygen 10/03/22 16:00 10/03/22 20:23 10/03/22 20:23 Temperature Pulse Rate 67 67 Respiratory Rate 18 18 Blood Pressure Pulse Oximetry 94 98 Oxygen Delivery Nasal Cannula Nasal Cannula Oxygen Flow Rate 2 2 Fraction of Inspired Oxygen 10/03/22 20:00 10/03/22 20:52 09/06
[2022-10-04] MEDS: SOTALOL HCL 80 MG TABLET PO (21:40)
[2022-10-04] MEDS: PRAVASTATIN SODIUM 20 MG TABLET PO (21:40)
[2022-10-04] MEDS: RIVAROXABAN 15 MG TABLET PO (21:46)
[2022-10-05] VITALS (25 sets, daily range): BP systolic 111–137; BP diastolic 67–80; PULSE 60–90; RESP 14–20; TEMP 36.3–37.1; O2SAT 87–99
[2022-10-05 06:24] LABS: Basophils Percent Auto 0.4 % (0.2-1.2); Eosinophils Absolute Auto 0.2 K/mm3 (0-0.3); Eosinophils Percent Auto 1.6 % (0-4.4); Hematocrit 35.9 % (37.0-47.0); Hemoglobin 11.3 g/dL (12.0-15.0); Immature Granulocyte Absolute 0.05 K/mm3 (0.00-0.031); Immature Granulocyte Percent A 0.5 % (0-0.5); Lymphocytes Absolute Auto 2.16 K/mm3 (0.9-3.2); Lymphocytes Percent Auto 20.1 % (18.3-44.2); Mean Corpuscular HGB Conc 31.5 g/dl (32-36); Mean Corpuscular Hemoglobin 31.4 pg (26-34); Mean Corpuscular Volume 99.7 fl (80-100); Mean Platelet Volume 9.9 fl (7.4-10.4); Monocytes Percent Auto 9.3 % (2.6-8.5); Neutrophils Absolute Auto 7.3 K/mm3 (1.3-6.7); Neutrophils Percent Auto 68.1 % (45.5-73.1); Platelet Count Result 200 k/mm3 (150-375); Red Cell Distribution Width 14.4 % (11.5-14.5); White Blood Count 10.8 K/mm3 (4.5-10.0)
[2022-10-05 06:36] LABS: Alanine Aminotransferase 13 U/L (6-35); Albumin Level 3.1 g/dL (3.5-5.1); Alkaline Phosphatase 68 U/L (38-126); Anion Gap 1 mmol/L (8-16); Aspartate Amino Transferase 19 U/L (14-36); Bilirubin,Total 0.5 mg/dL (0.2-1.3); Blood Urea Nitrogen 13 mg/dL (7-17); Calcium 8.7 mg/dL (8.4-10.2); Carbon Dioxide 29 mmol/L (22-30); Chloride 105 mmol/L (98-107); Estimated CRCL calculation 33 ml/min; Estimated Glomerular Filt Rate > 60; Glucose 89 mg/dL (65-110); Magnesium 1.9 mg/dL (1.6-2.3); Potassium 3.9 mmol/L (3.4-5.0); Sodium 135 mmol/L (137-145)
[2022-10-05 06:47] LABS: Vancomycin Trough 14.1 ug/mL (10.0-20.0)
[2022-10-05] MEDS: FLUTICASONE/UMECLIDIN/VILANTER 100-62.5-25 MCG ELLIPTA 1 PUFF INHALATION (07:05)
[2022-10-05] MEDS: ALBUTEROL SULFATE NEB 2.5 MG/3 ML INH INHALATION ×3 (07:05→20:58)
[2022-10-05] MEDS: IPRATROPIUM BR 0.02% INH SOLN 0.5 MG/2.5 ML VIAL INHALATION ×3 (07:05→20:58)
[2022-10-05] MEDS: guaiFENesin 200 MG/10 ML UDC PO ×2 (09:19→20:09)
[2022-10-05] MEDS: PANTOPRAZOLE 40 MG TABLET PO (09:19)
[2022-10-05] MEDS: FLUTICASONE PROPIONATE 0.05% NA SPR 16 GM BTL (*BKC) 1 SPRAY NASAL ×2 (09:19→20:10)
[2022-10-05] MEDS: LIDOCAINE 5% PATCH 1 PATCH TRANSDERM (09:19)
[2022-10-05] MEDS: POTASSIUM CHLORIDE 20 MEQ PACKET (FOR LIQUID) PO ×2 (09:19→17:25)
[2022-10-05] MEDS: MAGNESIUM OXIDE 400 MG TABLET PO (09:19)
[2022-10-05] MEDS: SOTALOL HCL 40 MG TABLET PO (09:19)
[2022-10-05] MEDS: ESCITALOPRAM OXALATE 5 MG TABLET PO (09:19)
[2022-10-05] MEDS: MIRABEGRON 25 MG ER TABLET PO (09:19)
--- NOTE | 2022-10-05 11:25 | PM.PNPUL ---
Progress Note: A&P Assessment and Plan (1) COPD (chronic obstructive pulmonary disease): Code(s): J44.9 - Chronic obstructive pulmonary disease, unspecified Status: Acute Assessment and Plan: 72-year-old female with a very severe COPD recently hospitalized with severe left? pneumonia for which she was adequately treated both inpatient and outpatient' she again presented with shortness of breath probably related to atrial fibrillation/ fluid overload.? Diagnostic studies have shown partial clearing of left upper lobe pneumonia but also partial atelectasis of the left upper lobe likely related to intrabronchial mucus. ? over the last 3- 4 days the patient had had episodes of increasing shortness of breath and hypoxemia for which she was treated with a BiPAP support.? She had workup with CTA that showed no pulmonary embolism and these episodes were attributed to mucus plugging.? The patient has been on aggressive pulmonary toilet with a nebulized short-acting bronchodilators, nebulized mucolytic agents, Acapella, a chest physical therapy chest? vest.? She refused therapeutic bronchoscopy.? Over the last 36 hours the respiratory status has improved and patient remains off BiPAP.? She continues with? Acapella but not with chest physical therapy or vibrating vest.? She received Lasix for possible fluid overload.? Last chest x-ray raised question of worsening infiltrate on the left.? In addition she has small pleural effusions bilaterally probably related to fluid overload.? She was started on Zosyn and vancomycin for possible nosocomial infection.? WBC back into normal range. ? on chest x-ray left partial atelectasis probably improved. Overall respiratory status significantly improved over the last 24 hours. She received ceftriaxone and azithromycin from 09/24 through 09/27. Patient was started on vancomycin and Zosyn on 09/30. 10/02 patient doing better.? Did not tolerate chest physical therapy or vibrating vest yesterday.? She is having nebulized short-acting bronchodilators, nebulized mucolytic agent daily.? remains on supplemental oxygen via nasal cannula has not used BiPAP support for more than 36 hours lately.? WBC within normal range.? Received Lasix for fluid overload yesterday. 10/02/22 Plan:? ? Continue with pulmonary toilet as ordered.? Repeat chest x-ray in a.m. Lasix 20 mg IV again today. 10/03 Patient is slowly improving. She has not had any more acute episodes of shortness of breath requiring BiPAP since 09/30. She is on 2 L nasal cannula saturations 98%. White blood cell count is 11.2. Creatinine is 0.9. Her weight today is 33.5 which is decreased from 37.2 on admission. chest x-ray today with stable left mid lung zone infiltrate compared to 10/02/2022. Continue vancomycin and Zosyn, day 4, and this is day 10 total IV antibiotics. Continue trilogy 100 - 62.5-25 at 1 puff q.day, Mucomyst q.12 hours, guaifenesin 200 mg p.o. q.12 hours. I will change her albuterol and ipratropium nebulizers to Q 6 hours while awake. aggressive physical therapy and occupational therapy. Out of bed and ambulation and room as tolerated. 10/04 patient continues to slowly improve. States that her sputum is thinner. She is ambulating in the room at 46 ft. She is on 2 L nasal cannula saturations 97%. White blood cell count 11.3, creatinine 0.7. She tells me Mucomyst is irritating her and it does not help her expectorate the sputum and will discontinue Continue vancomycin and Zosyn, day 5, and this is day 11 total IV antibiotics. Continue trilogy 100 - 62.5-25 at 1 puff q.day, guaifenesin 200 mg p.o. q.12 hours IC, PEP, and albuterol and ipratropium nebulizers to Q 6 hours while awake. she cannot tolerate the vibratory vest due to her post herpetic chest wall pain. anticipate completing 7 days of IV Vanco and IV Zosyn and discharge on 10/06/2022. 10/05 slowly improving. Currently on 2 L with saturations 97%. White blood cell count is 10.8, crea
--- NOTE | 2022-10-05 11:40 | PCRCNOTE ---
HOME O2 EVAL COMPLETE, NO CHANGE IN HOME SETTING. 2L AT REST AND WITH ACTIVITY
--- NOTE | 2022-10-05 13:32 | PM.IMPN ---
Progress Note: A&P Assessment and Plan (1) Hypoxia: Code(s): R09.02 - Hypoxemia Status: Acute Assessment and Plan: Needing supplemental oxygen via nasal cannula. Refused steroid Pulmonary consulted Underlying severe COPD Presented with left upper lobe pneumonia Right mucus plugging Nebulized Mucomyst/bronchodilator intermittent hypoxia needing BIPAP support X2. Suspected. Related to mucus plugging now on bronchodilators Mucomyst acetyl cystine VEST therapy acapella. could not tolerate vest due to shingles neuropathy on right arm /chest Chest x-ray 10/02 reviewed (2) Pneumonia: Qualifiers: Laterality: left Lung location: unspecified part of lung Pneumonia type: due to unspecified organism Qualified Code(s): J18.9 - Pneumonia, unspecified organism Code(s): J18.9 - Pneumonia, unspecified organism Status: Acute Assessment and Plan: CTA:? LL Pneumonia severe emphysema, pleural effusions small, 8 mm pulmonary nodule. IV antibiotic?Rocephin and Zithromax which has been now discontinued as suspicion for pneumonia is less started on zosyn, and vancomycin continue same for 2 more days discussed with pulmonary (3) Severe protein-calorie malnutrition: Code(s): E43 - Unspecified severe protein-calorie malnutrition Status: Acute (4) Hypertension: Code(s): I10 - Essential (primary) hypertension Status: Acute Assessment and Plan: 2D echo EF 70% History of atrial fibrillation already on?Xarelto and sotalol.? (5) Anxiety: Code(s): F41.9 - Anxiety disorder, unspecified Status: Acute Assessment and Plan: Anxiety: She started on?Lexapro add xanax low dose tid add lidoderm pach for shingles pain and anxiety from shingles. 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 will stop gabapentin due to possilbe etiolgy for worsneing hypoxia (6) COPD (chronic obstructive pulmonary disease): Code(s): J44.9 - Chronic obstructive pulmonary disease, unspecified Status: Acute Assessment and Plan: ad mitted with copd exacerbation and pneumonia Home oxygen evaluation prior to dischargeAnticipated 10/06/2022 Add Flonase nasal spray Plan Assessment and Plan (1) Hypoxia: ?Code(s): R09.02 - Hypoxemia ?Status:?Acute ?Assessment and Plan: Needing supplemental oxygen via nasal cannula.? Refused steroid Underlying severe COPD Presented with left upper lobe pneumonia Right mucus plugging Nebulized Mucomyst/bronchodilator intermittent hypoxia needing BIPAP support? X2. Suspected.? Related to mucus plugging now on bronchodilators Mucomyst? acetyl cystine VEST therapy acapella. could not tolerate vest due to shingles neuropathy on right arm /chest Chest x-ray 10/02 reviewed (2) Pneumonia: ?Qualifiers: ?Laterality:?left??Lung location:?unspecified part of lung??Pneumonia type:?due to unspecified organism? Qualified Code(s):?J18.9 - Pneumonia, unspecified organism ?Code(s): J18.9 - Pneumonia, unspecified organism ?Status:?Acute ?Assessment and Plan: CTA:? LL Pneumonia severe emphysema, pleural effusions small, 8 mm pulmonary nodule. IV antibiotic?s/p Rocephin and Zithromax on zosyn, and vancomycin continue same? for 2 more days Abx adjustment per Dr Rogers Pulmonology discussed with pulmonary (3) Severe protein-calorie malnutrition: ?Code(s): E43 - Unspecified severe protein-calorie malnutrition ?Status:?Acute (4) Hypertension: ?Code(s): I10 - Essential (primary) hypertension ?Status:?Acute ?Assessment and Plan: 2D echo EF 70% History of atrial fibrillation already on?Xarelto and sotalol.? (5) Anxiety: ?Code(s): F41.9 - Anxiety disorder, unspecified ?Status:?Acute ?Assessment and Plan: Anxiety:? She started on?Lexapro add xanax low dose tid add lidoderm pach for shingles pain and anxiety from shingles.? Add gabapentin for neuropathy
--- NOTE | 2022-10-05 19:37 | PC.NURSE ---
Pt had O2 evaluation done today. Pt walked with therapy to the bathroom. Pt has had no reports of pain or complaints today. Pt is A&O4 and participated and contributed in plan of care. Pt had family at the bed most of the day. Pt was monitored for changes in status.
[2022-10-05] MEDS: PRAVASTATIN SODIUM 20 MG TABLET PO (20:09)
[2022-10-05] MEDS: RIVAROXABAN 15 MG TABLET PO (20:09)
[2022-10-05] MEDS: SOTALOL HCL 80 MG TABLET PO (20:09)
[2022-10-06 06:00] VITALS: BP 137/79; PULSE 60; RESP 20; TEMP 36.6; O2SAT 99
[2022-10-06 06:08] LABS: Basophils Absolute Auto 0.1 K/mm3 (0.0-0.1); Basophils Percent Auto 0.4 % (0.2-1.2); Eosinophils Absolute Auto 0.2 K/mm3 (0-0.3); Eosinophils Percent Auto 1.9 % (0-4.4); Hematocrit 36.3 % (37.0-47.0); Hemoglobin 11.4 g/dL (12.0-15.0); Immature Granulocyte Absolute 0.06 K/mm3 (0.00-0.031); Immature Granulocyte Percent A 0.5 % (0-0.5); Lymphocytes Percent Auto 18.7 % (18.3-44.2); Mean Corpuscular HGB Conc 31.4 g/dl (32-36); Mean Corpuscular Volume 98.6 fl (80-100); Mean Platelet Volume 9.8 fl (7.4-10.4); Monocytes Percent Auto 8.6 % (2.6-8.5); Neutrophils Absolute Auto 7.9 K/mm3 (1.3-6.7); Neutrophils Percent Auto 69.9 % (45.5-73.1); Platelet Count Result 194 k/mm3 (150-375); Red Blood Count 3.68 M/mm3 (4.2-5.4); Red Cell Distribution Width 14.1 % (11.5-14.5); White Blood Count 11.3 K/mm3 (4.5-10.0)
[2022-10-06 06:24] LABS: Alanine Aminotransferase 13 U/L (6-35); Alkaline Phosphatase 73 U/L (38-126); Anion Gap 2 mmol/L (8-16); Aspartate Amino Transferase 21 U/L (14-36); Bilirubin,Total 0.6 mg/dL (0.2-1.3); Blood Urea Nitrogen 12 mg/dL (7-17); Calcium 8.6 mg/dL (8.4-10.2); Carbon Dioxide 28 mmol/L (22-30); Chloride 106 mmol/L (98-107); Estimated CRCL calculation 38 ml/min; Estimated Glomerular Filt Rate > 60; Glucose 95 mg/dL (65-110); Potassium 4.3 mmol/L (3.4-5.0); Sodium 136 mmol/L (137-145)
[2022-10-06 08:55] VITALS: PULSE 78; RESP 18
[2022-10-06] MEDS: ALBUTEROL SULFATE NEB 2.5 MG/3 ML INH INHALATION ×2 (08:55→14:26)
[2022-10-06] MEDS: FLUTICASONE/UMECLIDIN/VILANTER 100-62.5-25 MCG ELLIPTA 1 PUFF INHALATION (08:55)
[2022-10-06] MEDS: IPRATROPIUM BR 0.02% INH SOLN 0.5 MG/2.5 ML VIAL INHALATION ×2 (08:55→14:26)
[2022-10-06 09:05] VITALS: PULSE 77; PULSE 78; RESP 18; O2SAT 95
[2022-10-06] MEDS: FLUTICASONE PROPIONATE 0.05% NA SPR 16 GM BTL (*BKC) 1 SPRAY NASAL (09:26)
[2022-10-06] MEDS: guaiFENesin 200 MG/10 ML UDC PO (09:26)
[2022-10-06 09:27] VITALS: PULSE 79
[2022-10-06] MEDS: MIRABEGRON 25 MG ER TABLET PO (09:27)
[2022-10-06] MEDS: SOTALOL HCL 40 MG TABLET PO (09:27)
[2022-10-06] MEDS: MAGNESIUM OXIDE 400 MG TABLET PO (09:28)
[2022-10-06 09:29] VITALS: O2SAT 94
[2022-10-06] MEDS: POTASSIUM CHLORIDE 20 MEQ PACKET (FOR LIQUID) PO (09:29)
[2022-10-06] MEDS: ESCITALOPRAM OXALATE 5 MG TABLET PO (09:29)
[2022-10-06] MEDS: PANTOPRAZOLE 40 MG TABLET PO (09:29)
--- NOTE | 2022-10-06 11:29 | PM.DS ---
DS: Admitting Diagnosis Discharge Date 10/06/2022 Admitting Diagnosis acute hypoxemic respiratory failyre DS: Summary Hospital Course Reason for hospitalization: sob Hospital Course: Patient was followed outpatient by pulmonology for FLAKO consolidation with possible cavitary lesion, she was placed on antibiotics however she ended presenting to [facility] [facility] for SOB. CXR on admission showed worsening FLAKO PNA with bilateral pleural effusion, howeve CTA scan showed mucus plugging and patient declined bronchoscopy. She was treated initially with Zosyn and Vanc, blood cultures were negative. Pulmonology was consulted and followed patient, she was later changed to Augmentin. Required BiPAP initially but currently on 2 L o2 by VT. Pulmonology recommends Augmentin for 7 more days, incencitive spirometry, nebulized Levalbuterol, ipratopoum bromide, Trelegy. Patient declined steroid treatment. She will f/u with PCP in 3-5 day, and pulmmonology in 3 weeks. Hold Xarelto for 3 days and restart on the 10/10/22 for nose bleed and f/u with pulmonology. Time Spent with Patient Time attestation: Total time spent providing and/or coordinating discharge services: DS: Data Data Completed and Pending Labs on day of discharge: Labs from last 24 hours 10/06/22 10/06/22 05:53 05:53 WBC 11.3 H RBC 3.68 L Hgb 11.4 L Hct 36.3 L MCV 98.6 MCH 31.0 MCHC 31.4 L RDW 14.1 Plt Count 194 MPV 9.8 Immature Gran % (Auto) 0.5 Neut % (Auto) 69.9 Lymph % (Auto) 18.7 Gibson % (Auto) 8.6 H Eos % (Auto) 1.9 Baso % (Auto) 0.4 Lymph # (Auto) 2.10 Gibson # (Auto) 1.0 H Eos # (Auto) 0.2 Baso # (Auto) 0.1 Abs Immat Gran (auto) 0.06 H Absolute Neuts (auto) 7.9 H Absolute Nucleated RBC 0.0 Nucleated RBC % 0.0 Sodium 136 L Potassium 4.3 Chloride 106 Carbon Dioxide 28 Anion Gap 2 L BUN 12 Creatinine 0.60 L Estim Creat Clear Calc 38 Estimated GFR > 60 Glucose 95 Calcium 8.6 Total Bilirubin 0.6 AST 21 ALT 13 Alkaline Phosphatase 73 Total Protein 6.0 L Albumin 3.0 L Discharge Plan Discharge Attending physician on discharge: Jayshree Sorto Consulting providers: Tim Sinclair Discharging Clinician: Jayshree Sorto Anticipated Discharge Date/Time: 10/06/22 11:20 Patient Disposition: Home, Self-Care Activity: as tolerated Diet: as tolerated Discharge Instructions: per care coordination, pt. to resume [facility] for RN, PT/OT. [facility] can be reached at [phone]. RN, please fax discharge instructions to [phone] once complete. Thank you. Patient Instructions: Antibiotic Form, Rivaroxaban (By mouth), Heart Failure (GEN), How to Stop Smoking (DC), Pain Management in Older Adults (DC), Heart Healthy Diet (GEN), Cigarette Smoking and Your Health (GEN) Stand Alone Forms: General Discharge Information Follow-up/Referrals: Hopper,Estlela Cuevas APRN [Primary Care Provider] - (f/u with PCP in 3-5 days ) Tim Sinclair MD [Physician] - (f/u in 3 weeks per instruction ) Discharge Medications: New ipratropium bromide 0.02 % Solution 0.5 mg inhalation [id number] Qty: 10 0RF escitalopram oxalate 10 mg Tablet 5 mg PO DAILY Qty: 30 0RF albuterol sulfate 0.63 mg/3 mL solution for nebulization 0.63 mg inhalation Q4H Qty: 75 0RF Continued diltiazem HCl 120 mg capsule,extended release 24hr 120 mg PO DAILY pravastatin 20 mg tablet 20 mg PO HS ergocalciferol (vitamin D2) 1,250 mcg (50,000 unit) capsule 1,250 mcg PO [id number] Rx Instructions: last dose sep 13 - nest dose due sep 27 levalbuterol tartrate 45 mcg/actuation HFA aerosol inhaler 2 puff INHALATION Q4H PRN (Reason: Shortness Of Breath) Trelegy Ellipta 100-62.5-25 mcg blister with device 1 inh INHALATION DAILY sotalol 80 mg Tablet 80 mg PO HS sotalol 80 mg Tablet 40 mg PO DAILY Augmentin 875 mg
--- NOTE | 2022-10-06 12:15 | PC.NURSE ---
Pt resting in bed. Pt A&O4. Pt has family at bedside to speak with providers. Pt has no complaints of pain. Pt O2 saturation is within normal limits. Pt has been cleared by providers to discharge home. Will continue to monitor pt until discharge.
[2022-10-06 14:25] VITALS: PULSE 68; RESP 18
== END 2022-10-06 15:25 | disposition home health service (06) | DRG 193 ==
LOC: ANHED 07:10 → ANHIMU 11:08 → ANH3MEDSUR 09-25 12:51 → ANHIMU 09-30 12:24 → ANH3MEDSUR 10-04 18:36
PROVIDERS: Emergency Medicine; Family Medicine; Internal Medicine; Admitting Provider Internal Medicine; Emergency Provider Emergency Medicine; PCP Nurse Practitioner Family; Visit Provider Internal Medicine
DX: J18.9 Pneumonia, unspecified organism (principal); E43 Unspecified severe protein-calorie malnutrition; I50.33 Acute on chronic diastolic (congestive) heart failure; J96.01 Acute respiratory failure with hypoxia; Z68.1 Body mass index [BMI] 19.9 or less, adult; T17.590A Other foreign object in bronchus causing asphyxiation, initial encounter; B02.23 Postherpetic polyneuropathy; I48.91 Unspecified atrial fibrillation; I11.0 Hypertensive heart disease with heart failure; E87.6 Hypokalemia; J43.9 Emphysema, unspecified; F41.9 Anxiety disorder, unspecified; Z20.822 Contact with and (suspected) exposure to COVID-19; E78.00 Pure hypercholesterolemia, unspecified; R91.1 Solitary pulmonary nodule; H40.9 Unspecified glaucoma; Z87.442 Personal history of urinary calculi; Z87.891 Personal history of nicotine dependence
CPT/HCPCS: 36415; 36600; 70450; 70553; 71045; 71046; 71275; 80048; 80053; 80202; 82805; 82948; 83690; 83735; 83880; 84484; 85025; 85027; 85610; 85730; 87040; 87636; 93005; 94002; 94618; 94640; 94667; 94668; 94669; 94762; 96375; 97161; 97165; 97530; 99285; A9270; A9577; J0456; J0696; J1940; J2060; J2543; J3370; Q9967

== ENCOUNTER 2022-10-19 15:52 | Outpatient (CLI) | payer OTHER, SELFPAY ==
--- NOTE | ~2022-10-19 | XR_ITS ---
EXAMINATION: XR chest 2V DATE: 10/19/2022 16:22 INDICATION: Pneumonia, unspecified organism. TECHNIQUE: Frontal and lateral views of the chest were obtained. COMPARISON: Chest single view 10/03/2022, chest CT 09/29/2022 FINDINGS: The lungs are hyperexpanded with lucencies, consistent with emphysema. There is mild scarri ng at the lung apices. There are airspace opacities in left upper lobe with volume loss. There are ai rspace opacities at left lung base. There are small pleural effusions. No pneumothorax. The heart siz e is normal. IMPRESSION: 1. Persistent airspace opacities in left upper lobe with volume loss and worsened airspace opacities at left lung base, consistent with pneumonia. 2. New small pleural effusions. 3. Emphysema. Reviewed, dictated and finalized at location A. TING MACHINE FIXER IMPRESSION: 1. Persistent airspace opacities in left upper lobe with volume loss and worsen ed airspace opacities at left lung base, consistent with pneumonia. 2. New small pleural effusions. 3. Emphysema.
== END 2022-10-19 15:53 | disposition home or self-care (01) ==
PROVIDERS: PCP Nurse Practitioner Family; Visit Provider Internal Medicine Pulmonary Disease
DX: J18.9 Pneumonia, unspecified organism (principal); J43.9 Emphysema, unspecified; J90 Pleural effusion, not elsewhere classified
CPT/HCPCS: 71046

== ENCOUNTER 2022-10-23 22:35 | Inpatient (IN) | payer OTHER, SELFPAY ==
--- NOTE | ~2022-10-23 | XR_ITS ---
EXAMINATION: XR abdomen/kub 1V DATE: 11/02/2022 16:32 INDICATION: Bladder mass. TECHNIQUE: A supine view of the abdomen was obtained. COMPARISON: CT abdomen and pelvis 05/02/2022 FINDINGS: There are no dilated loops of bowel. There is a moderate volume of stool in the colon. Ther e are multiple stones in right kidney measuring up to 6 mm. Left kidney is obscured by bowel. IMPRESSION: 1. Right kidney stones. Reviewed, dictated and finalized at location A. APIST PHYSICAL IMPRESSION: 1. Right kidney stones.
--- NOTE | ~2022-10-23 | CT_ITS ---
Non-contrast Head CT History: Dizziness COMPARISON: 09/24/2022 Technique: Axial non-contrast imaging of the brain was performed. Dose reduction technique was used on this scan by utilizing automated exposure control and iterative reconstruction technique. The dose -length product (DLP) was 605.33 mGy-cm. Findings: There is no evidence of intracranial hemorrhage, mass lesion, or acute infarct. Brain par enchyma appears normal. The ventricles and subarachnoid spaces are normal in size. The calvarium ap pears normal. The visualized paranasal sinuses and mastoid air cells are clear. Impression: No significant abnormality seen. Reviewed, dictated and finalized at location . CIATE PROGRAMMER ANALYST Impression: No significant abnormality seen.
--- NOTE | ~2022-10-23 | MR_ITS ---
EXAMINATION: MR brain/brain stem wo con DATE: 10/28/2022 15:40 INDICATION: Visual defects. Ataxia. TECHNIQUE: Magnetic resonance imaging (MRI) of the brain and brainstem was performed without intraven ous contrast. COMPARISON: Brain MRI 09/25/2022, head CT 10/24/2022 FINDINGS: There are scattered areas of nonspecific increased T2-weighted signal intensity in the cere bral white matter and davis. There is no intracranial hemorrhage, acute infarction, or abnormal intrac ranial mass lesion. The ventricles are normal in size. The orbits are normal. The paranasal sinuses a re clear. There are bilateral mastoid effusions. IMPRESSION: 1. Moderate nonspecific cerebral white matter disease and pontine disease, which likely represents ch ronic small vessel ischemic disease. Reviewed, dictated and finalized at location A. ITY CONTROLLER IMPRESSION: 1. Moderate nonspecific cerebral white matter disease and pontine disease, whic h likely represents chronic small vessel ischemic disease.
--- NOTE | ~2022-10-23 | US_ITS ---
Procedure: Duplex Doppler examination of the bilateral carotids. Indication: Dizziness, carotid stenosis Technique: Real time, color-flow and pulse wave Doppler examination of the bilateral carotids was performed. Findings: Pierson scale ultrasonography of the right neck demonstrated a small plaque at the right carotid bulb. T here was demonstration of normal color-flow and Doppler waveforms within the right common, internal a nd external carotid arteries. The peak systolic velocities in the right common, internal and external carotid arteries were demonstrated to be 96 cm/sec, 86 cm/sec and 119 cm/sec respectively. The right ICA/CCA ratio was 1.0.The proximal right internal carotid artery demonstrates 0% stenosis relative t o the normal distal artery lumen diameter. Pierson scale sonography of the left neck demonstrated a small to moderate plaque at the distal left com mon carotid artery, and small calcified plaques at the left carotid bulb. There was demonstration of normal color-flow and wave forms within the left common, internal and external carotid arteries. The peak systolic velocities in the left common, internal and external carotid arteries were demonstrated to be 96cm/sec, 105 cm/sec and 154 cm/sec respectively. The left ICA/CCA ratio was 1.1. The proximal left internal carotid artery demonstrates 0% stenosis relative to the normal distal artery lumen jimmy meter. There was antegrade flow demonstrated in the bilateral vertebral arteries. Impression: No hemodynamically significant stenosis of the bilateral internal carotid arteries. Antegrade flow in the bilateral vertebral arteries. Note: The methodology used is an indirect measurement validated against a direct method (such as the NASCET criteria) that compares diameters at the stenosis to the distal ICA. Reviewed, dictated and finalized at location M. TAL ASSOCIATE MEDIA DIRECTOR Impression: No hemodynamically significant stenosis of the bilateral internal carotid arter ies. Antegrade flow in the bilateral vertebral arteries. Note: The methodology used is an indirect measurement validated against a direct meth od (such as the NASCET criteria) that compares diameters at the stenosis to the distal ICA.
--- NOTE | ~2022-10-23 | XR_ITS ---
Portable chest x-ray Comparison: 10/19/2022 Clinical History: Cough Findings: Hazy left upper lobe airspace disease present, with an area of irregular linear increased density, which is unchanged. Underlying COPD pattern. Cardiomediastinal silhouette is stable. Bones and soft tissues are unremarkable. Impression: Hazy left upper lobe airspace disease. Correlate for pneumonia. Probable underlying left upper lobe s carring, versus additional pneumonia, unchanged. COPD. Reviewed, dictated and finalized at location M. FACTURING MAINTENANCE MECHANIC Impression: Hazy left upper lobe airspace disease. Correlate for pneumonia. Probable underl bobo left upper lobe scarring, versus additional pneumonia, unchanged. COPD.
--- NOTE | ~2022-10-23 | CT_ITS ---
EXAMINATION: CT abdomen pelvis wo/w con DATE: 11/02/2022 17:10 INDICATION: Possible bladder mass TECHNIQUE: Computed tomography (CT) of the abdomen and pelvis was performed without intravenous contr ast. CT of the abdomen and pelvis was then performed with a total of 80 mL Omnipaque 350 intravenous contrast. The dose-length product (DLP) was 394.30 mGy-cm. Automated exposure control and iterative r econstruction technique were employed. COMPARISON: 04/23/2022; ultrasound, 11/01/2022 FINDINGS: There are small pleural effusions. Dependent atelectasis and severe emphysema are noted of the visualized lung bases. The heart size is normal. Punctate calcifications in an otherwise normal s pleen likely represent healed granulomatous disease. The pancreas, gallbladder, and adrenal glands ar e normal. There is nephrocalcinosis of the kidneys. Nonobstructing stones of the right kidney measure up to 7 mm. No stones are identified in the ureters. There is a 2 mm stone in the dependent portion of the urinary bladder on the right. There is subtle dependent mildly hyperattenuating material in th e urinary bladder on the noncontrast series. After contrast administration, a fluid fluid layer is se en with urinary bladder contrast layering on top of this more dependent fluid layer. No hydronephrosi s or hydroureter. There is calcified atherosclerosis of the aorta and many of the other arteries. No pathologically enlarged abdominal or pelvic lymph nodes are identified. No free intraperitoneal gas o r evidence of bowel obstruction. Colonic diverticulosis is present without evidence of diverticulitis . There is severe lumbar spondylosis. A large volume of colonic stool is present. IMPRESSION: 1. Fluid fluid layer of the urinary bladder, possibly related to dependent hematoma of the bladder. 2. 2 mm stone in the urinary bladder, bilateral nephrolithiasis, and bilateral nephrocalcinosis. Reviewed, dictated and finalized at location F. FILLER IMPRESSION: 1. Fluid fluid layer of the urinary bladder, possibly related to dependent hayley gregorio of the bladder. 2. 2 mm stone in the urinary bladder, bilateral nephrolithiasis, and bilateral nephrocalcinosis.
--- NOTE | ~2022-10-23 | US_ITS ---
EXAMINATION: US renal BI DATE: 11/01/2022 17:51 INDICATION: UTI TECHNIQUE: Multiple grayscale and Doppler ultrasound images of the kidneys were obtained. COMPARISON: CT abdomen and pelvis 05/01/2022. FINDINGS: The right kidney measures 8.6 x 4.0 x 5.0 cm. The left kidney measures 8.8 x 3.7 x 3.9 cm. The kidney s demonstrate normal parenchymal echogenicity. Multiple shadowing and nonshadowing echogenicities wit h twinkle artifact bilaterally. There is no hydronephrosis. The bladder is heterogeneous and irregula r echogenicity in the posterior and right lateral aspect of the urinary bladder. IMPRESSION: Bilateral nephrolithiasis. Intraluminal echogenicities in the urinary bladder likely represent hemorr hagic, crystalline, or infectious debris, noting that a bladder mass is not excluded. Reviewed, dictated and finalized at location K. REFINER IMPRESSION: Bilateral nephrolithiasis. Intraluminal echogenicities in the urinary bladder l ikely represent hemorrhagic, crystalline, or infectious debris, noting that a b ladder mass is not excluded.
[2022-10-23 22:38] VITALS: BP 198/98; PULSE 78; RESP 16; TEMP 37.1; O2SAT 97
[2022-10-23 23:56] VITALS: PULSE 71; O2SAT 98
[2022-10-24] VITALS (69 sets, daily range): BP systolic 55–142; BP diastolic 45–87; PULSE 63–148; RESP 16–45; TEMP 36.6–37.2; O2SAT 94–100; BMI 15.0
--- NOTE | 2022-10-24 00:46 | ECG_ITS ---
Measurements Intervals [place] Rate: 69 P: 87 UT: 124 QRS: 83 QRSD: 92 T: 94 QT: 454 QTc: 490 Interpretive Statements SLOW ATRIAL FLUTTER WITH 2-1 CONDUCTION LEFT ATRIAL ENLARGEMENT [-0.15mV P WAVE IN V1/V2] PROLONGED QT INTERVAL COMPARED TO ECG 09/29/2022 14:47:34 ATYPICAL ATRIAL FLUTTER SEEN Electronically Signed On 10-24-2022 12:41:44 LABORER POULTRY HATCHERY by Derek Hanks M.D.
[2022-10-24] MEDS: ONDANSETRON INJ 4 MG/2 ML VIAL IV PUSH ×2 (01:15→03:46)
[2022-10-24] MEDS: SODIUM CHLORIDE 0.9% IV 1,000 ML 999 ML IV CONT ×3 (01:15→03:52)
[2022-10-24] MEDS: MECLIZINE HCL 25 MG TABLET PO (01:15)
[2022-10-24 01:23] LABS: Basophils Percent Auto 0.3 % (0.2-1.2); Hematocrit 37.9 % (37.0-47.0); Immature Granulocyte Absolute 0.06 K/mm3 (0.00-0.031); Immature Granulocyte Percent A 0.4 % (0-0.5); Lymphocytes Absolute Auto 1.58 K/mm3 (0.9-3.2); Mean Corpuscular HGB Conc 31.7 g/dl (32-36); Mean Corpuscular Hemoglobin 29.9 pg (26-34); Mean Corpuscular Volume 94.3 fl (80-100); Mean Platelet Volume 9.5 fl (7.4-10.4); Monocytes Absolute Auto 0.9 K/mm3 (0.1-0.6); Monocytes Percent Auto 6.5 % (2.6-8.5); Neutrophils Absolute Auto 11.8 K/mm3 (1.3-6.7); Neutrophils Percent Auto 81.8 % (45.5-73.1); Platelet Count Result 365 k/mm3 (150-375); Red Blood Count 4.02 M/mm3 (4.2-5.4); White Blood Count 14.4 K/mm3 (4.5-10.0)
--- NOTE | 2022-10-24 01:30 | PC.NURSE ---
Patient taken to CT.
[2022-10-24 01:46] LABS: Alanine Aminotransferase 17 U/L (6-35); Alkaline Phosphatase 123 U/L (38-126); Anion Gap 8 mmol/L (8-16); Aspartate Amino Transferase 26 U/L (14-36); Bilirubin,Total 0.9 mg/dL (0.2-1.3); Blood Urea Nitrogen 16 mg/dL (7-17); Calcium 9.6 mg/dL (8.4-10.2); Carbon Dioxide 29 mmol/L (22-30); Chloride 101 mmol/L (98-107); Estimated Glomerular Filt Rate > 60; Glucose 118 mg/dL (65-110); Lipase 30 U/L (23-300); Magnesium 1.9 mg/dL (1.6-2.3); Potassium 4.1 mmol/L (3.4-5.0); Sodium 138 mmol/L (137-145)
--- NOTE | 2022-10-24 01:53 | ECG_ITS ---
Measurements Intervals [place] Rate: 130 P: WV: 0 QRS: -51 QRSD: 90 T: 92 QT: 357 QTc: 526 Interpretive Statements ATYPICAL ATRIAL FLUTTER WITH VARIABLE CONDUCTION MARKED LEFT AXIS DEVIATION [QRS AXIS < -30] PATTERN CONSISTENT WITH PULMONARY DISEASE ST DEPRESSION, CONSIDER SUBENDOCARDIAL INJURY [0.1+ mV ST DEPRESSION] ABNORMAL QRS-T ANGLE [QRS-T AXIS DIFFERENCE > 60] COMPARED TO ECG 10/24/2022 01:20:21 VENTRICULAR RESPONSE TO ATYPICAL FLUTTER IS ACCELERATED Electronically Signed On 10-24-2022 12:42:35 APPLICATIONS ANALYST by Derek Hanks M.D.
--- NOTE | 2022-10-24 02:11 | PC.NURSE ---
Patient HR went into afib and bp dropped. ERP notified. Repeat EKG obtained. Patient resting comfortable in room, on stretcher. Patient denies any pain, states just dizziness. ERP notified. IV fluids still infusing.
--- NOTE | 2022-10-24 02:32 | ED.GENADULT ---
HPI - General Adult General Chief complaint: Nausea/Vomiting/Diarrhea Stated complaint: N/V Time Seen by Provider: 10/24/22 00:36 History of Present Illness HPI narrative: Patient is a 72-year-old female who presents the emergency department with chief complaint of dizziness patient reports that she has had difficulty hearing out of her right ear for about a week reports that she used drops in her ear to try to irrigate this without success. Patient reports she started having sensation of though she was spending and reports this feels similar to whenever she had vertigo in the past. Patient reports its worse whenever she opens her eyes the patient reports no trauma does report that she is on blood thinners for atrial fibrillation. Patient reports no chest pain reports that she has had nausea and vomiting and now is at the point of dry heaving. The patient was in the hospital recently for pneumonia and has finished her course of antibiotics. Patient is on Cardizem and on Xarelto. Related Data Home Medications Medication Instructions Recorded Confirmed diltiazem HCl 120 mg 120 mg PO DAILY 01/16/22 09/24/22 capsule,extended release 24 hr ergocalciferol (vitamin D2) 1,250 1,250 mcg PO [id number] 01/16/22 09/24/22 mcg (50,000 unit) capsule fluticasone fur. 100 mcg-umeclid 1 inh inhalation DAILY 01/16/22 09/24/22 62.5 mcg-vilant 25 mcg inhalat.powder (Trelegy Ellipta) levalbuterol tartrate 45 2 puff inhalation Q4H PRN 01/16/22 09/24/22 mcg/actuation aerosol inhaler Shortness Of Breath pravastatin 20 mg tablet 20 mg PO HS 01/16/22 09/24/22 rivaroxaban 15 mg tablet (Xarelto) 15 mg PO HS 01/16/22 09/24/22 magnesium oxide 400 mg (241.3 mg 400 mg PO DAILY 06/08/22 09/24/22 magnesium) tablet sotalol 80 mg tablet 80 mg PO BID 08/30/22 09/24/22 acetaminophen 500 mg tablet 500 mg PO TID PRN Pain 09/24/22 09/24/22 spironolactone 25 mg tablet mg 10/23/22 Allergies Allergy/AdvReac Type Severity Reaction Status Date / Time morphine Allergy Unknown ITCHING Verified 10/23/22 22:41 gabapentin Allergy Other Verified 10/23/22 22:41 doxycycline AdvReac Vomiting Verified 10/23/22 22:41 Review of Systems Review of Systems: A 10 system review of systems was completed on the patient and is negative except for what is stated in the HPI. Nursing and ancillary documentation was reviewed. [facility] Past Medical History Medical History Atrial fibrillation COPD (chronic obstructive pulmonary disease) PFT 11/02/2021: Severe obstructive airway disease with air trapping, lung hyperinflation and significant response to bronchodilators. Severely reduced diffusion capacity Glaucoma Hypercholesterolemia Hypertension Kidney stones Polycythemia secondary to hypoxia Pulmonary nodule 7 mm left lower lobe nodule increased in size compared to prior exam 2016 with recommended follow-up CT scan in March-April Patient stated she had a PET scan which was negative. She stated she was told that it was granulomatosis Surgical History Surgical History H/O cystoscopy History of 2 sections History of extraction of renal calculus Family History Family History Father Acute myocardial infarction Hypertension Mother Chronic obstructive pulmonary disease Sibling Chronic obstructive pulmonary disease Hypertension Pulmonary hypertension Social History Social History Social History: She reports that her daughter and 2 grand children recently moved in with her. 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 She denies any significant alcohol use or illicit substance use. Code status: Full code Surrogate decision maker: Diana (daughter) Smoking packs per day: 2 Smoking c
[2022-10-24] MEDS: AMIODARONE 150 MG/D5W 100 ML 150 MG/100 ML BAG 600 MG IV CONT (03:03)
[2022-10-24] MEDS: AMIODARONE 360 MG/D5W 200 ML 360 MG/200 ML BAG 33.33 MG IV CONT (03:19)
--- NOTE | 2022-10-24 03:37 | ECG_ITS ---
Measurements Intervals [place] Rate: 70 P: 92 MN: 123 QRS: 73 QRSD: 94 T: 88 QT: 484 QTc: 525 Interpretive Statements SLOW ATRIAL FLUTTER VERSUS PAT WITH 2-1 CONDUCTION POSSIBLE LEFT ATRIAL ENLARGEMENT [-0.1mV P WAVE IN V1/V2] LOW QRS VOLTAGE IN EXTREMITY LEADS [QRS DEFLECTION < 0.5 mV IN LIMB LEADS] COMPARED TO ECG 10/24/2022 02:05:42 SLOWER vENTRICULAR RESPONSE TO SLOW FLUTTER/ATRIAL TACH Electronically Signed On 10-24-2022 12:44:17 BUYER ASSISTANT by Derek Hanks M.D.
[2022-10-24 03:38] LABS: Troponin I < 0.012 ng/mL (0.000-0.034)
[2022-10-24 03:39] LABS: Troponin I < 0.012 ng/mL (0.000-0.034)
--- NOTE | 2022-10-24 04:07 | PC.NURSE ---
Patient states the dizziness has eased up and her hearing is better out of her right ear after irrigating with water.
[2022-10-24 04:52] LABS: Appearance Urine Clear (Clear); Bilirubin Urine 1+ (Negative); Blood Urine 2+ (Negative); Color Urine Yellow (Yellow); Glucose Urine UA Negative (Negative); Ketones Urine 2+ mg/dL (Negative); Leukocyte Esterase Ur Negative LEU/UL (Negative); Nitrate Urine Negative (Negative); Protein Urine 2+ mg/dL (Negative)
[2022-10-24 04:54] LABS: Bacteria Urine Trace /hpf; Mucus Urine Rare /lpf; RBC Urine >75 /hpf (0-2); Squamous Epithelial Cell Urine Rare /hpf (Few)
[2022-10-24 05:25] LABS: Add Urine Microscopic? YES
--- NOTE | 2022-10-24 08:21 | ADMGEN ---
This patient, Sofi Zeng, was admitted to IMU Room 203-01. Patient/family oriented to hospital policies and general routines including ID bracelet, bed and alarms, visiting hours, pain management, procedures, bathroom and other care routines, personal items, smoking policy, room service/diet, and visiting hours. Information on how to activate the Rapid Response Team has been discussed. Patient/Family are encouraged to report perceived risks to care and to ask questions if they do not understand what they are told or what they should do.
--- NOTE | 2022-10-24 11:20 | PM.CNCAR ---
Assessment and Plan Assessment and plan (1) Atrial flutter: Code(s): I48.92 - Unspecified atrial flutter Status: Acute Plan This is a 72-year-old lady who has severe COPD/emphysema with longstanding prior history of smoking. This is triggering atrial arrhythmias according to the patient both atrial fibrillation and now in a rather atypical slow atrial flutter. She is now in sinus rhythm in the 60s and is asymptomatic. As I mentioned above we would recommend advancing her diltiazem dosage to 180 mg and she can go home and follow up with her assembler show motor as an outpatient she says she has an appointment with him on of this week. The alternative would be to keep her in this hospital in transition her to an alternative antiarrhythmic. Decision I would make would be to use flecainide at this time. She however would like her established assembler show motor to make these decisions. If you have any further questions about this situation please let me know Derek Hanks MD [facility] History of Present Illness History of Present Illness Consult date/time: 10/24/22 11:20 Reason For Visit: Atrial Fibrillation w RVR/Prolonged QT/Vertigo Narrative: This is a 72-year-old woman I am seeing at the request of the hospitalist today after she was admitted to the hospital in the middle of the night with the diagnosis of AFib with RVR. The patient has a assembler show motor elsewhere that she is seeing for management of atrial fibrillation she thinks for something like 4-5 years. She has no other cardiac problems and is taking a regimen of sotalol, diltiazem for her atrial fibrillation. According to the patient and her her atrial fibrillation is felt to be the result of severe underlying lung disease. The patient is a former smoker of many years and has developed severe advanced COPD/emphysema. Her pouncing machine operator is here at [facility] with her other physicians are not. She came to the hospital emergency room in the middle of the night with symptoms of dizziness. She says she has felt dizzy like this in the past when she was in atrial fibrillation. She says that she does not like the hospital in [place] where her physician works and so she came here for treatment. In the emergency room she was given orders to receive amiodarone I am not sure if she actually received any or not because then the those orders were canceled because of her underlying lung disease. She was continued on her sotalol and admitted to IMU. She is comfortable and has no complaints at this time. According to my personal review of her 12 lead ECGs she did not have atrial fibrillation but rather slow atrial flutter and when she was tachycardic she was in one-to-one conduction. The QRS was narrow and she now is in sinus rhythm with heart rates in the 60s. The patient states that in addition to sotalol 80 mg twice daily she takes diltiazem CD 120 mg daily for these arrhythmias. The diltiazem is not ordered on her current chart. She states that her assembler show motor told her that if she continues to have arrhythmias they might have to adjust her to a different antiarrhythmic medication which would necessitate admitting her to the hospital. Long discussion with the patient and her about this issue I told her that a reasonable option would be to transition her from sotalol to flecainide however the patient does not wish to do this she wishes to be discharged and have follow-up with her established assembler show motor which is actually scheduled on of this week and discuss these issues with him. I told her in the meantime I would recommend advancing the dose of her diltiazem to 180 mg and she is agreeable to this. Review of Systems Constitutional: Constitutional: Reports lethargy Eyes: Eyes: Reports no additional eye complaints ENT: Reports system reviewed and no additional complaints, except as documented Cardiovascular: Cardiovascular: Reports palpitations Re
[2022-10-24] MEDS: dilTIAZem HCL CD 180 MG CAP.ER.24H PO (12:52)
[2022-10-24] MEDS: MAGNESIUM OXIDE 400 MG TABLET PO (12:53)
[2022-10-24] MEDS: SPIRONOLACTONE 25 MG TABLET PO (12:53)
[2022-10-24] MEDS: SOTALOL HCL 80 MG TABLET PO ×2 (12:53→20:10)
[2022-10-24] MEDS: ESCITALOPRAM OXALATE 5 MG TABLET PO (12:53)
[2022-10-24] MEDS: MIRABEGRON 25 MG ER TABLET PO (12:53)
[2022-10-24] MEDS: ALBUTEROL SULFATE NEB 2.5 MG/3 ML INH INHALATION (15:20)
[2022-10-24] MEDS: IPRATROPIUM BR 0.02% INH SOLN 0.5 MG/2.5 ML VIAL INHALATION (15:20)
--- NOTE | 2022-10-24 15:58 | PC.NURSE ---
This patient, Sofi Zeng, was transferred to [ [facility]] on 10/24/22 at 1558. Personal belongings sent with patient. Report given to [CHANNING Bowen @ [phone] ]. Appropriate documentation sent with patient.
--- NOTE | 2022-10-24 16:16 | PC.NURSE ---
Pt transferred to room 255 via bed, oriented to new room and environment, reviewed plan of care with pt and significant other
--- NOTE | 2022-10-24 16:51 | PM.IMHP ---
H&P: HPI History of Present Illness Date/Time: 10/24/22 16:51 Chief Complaint: dizziness Narrative: ED-HPI narrative: Patient is a 72-year-old female who presents the emergency department with chief complaint of dizziness patient reports that she has had difficulty hearing out of her right ear for about a week reports that she used drops in her ear to try to irrigate this without success.? Patient reports she started having sensation of though she was spending and reports this feels similar to whenever she had vertigo in the past.? Patient reports its worse whenever she opens her eyes the patient reports no trauma does report that she is on blood thinners for atrial fibrillation.? Patient reports no chest pain reports that she has had nausea and vomiting and now is at the point of dry heaving.? The patient was in the hospital recently for pneumonia and has finished her course of antibiotics.? Patient is on Cardizem and on Xarelto. patient is 72-year-old female with long history of smoking and severe emphysema COPD presented emergency department with complaint dizziness and right ear pain, patient describes very dizzy being vertical there is no change with movement of her head and room was not removing, patient right ear was irrigated in the emergency depart and patient stats her symptoms have improved, patient is also found to history of atrial fibrillation however patient was in RVR and was started on diltiazem drip in ER patient rate is trending patient is seen by Cardiology suspect her arrhythmias secondary to persistent COPD recommended to increase her oral diltiazem to 180 mg q.d., patient will follow-up with her established roll line operator as scheduled for . will continue monitor further recommendation to follow. patient is admitted as observation status. Review of Systems Constitutional: Constitutional: Reports lethargy Eyes: Eyes: Reports no additional eye complaints ENT: Reports system reviewed and no additional complaints, except as documented Cardiovascular: Cardiovascular: Reports palpitations Respiratory: Respiratory: Reports dyspnea Gastrointestinal: Gastrointestinal: Reports no additional gastrointestinal complaints Musculoskeletal: Musculoskeletal: Reports no additional musculoskeletal complaints Integumentary/Breasts: Skin/Breast: Reports system reviewed and no additional complaints, except as docu Comments: Patient has poor skin turgor Neurologic: Comments: Alert and oriented x3 Endocrine: Endocrine: Reports no additional endocrine complaints Hematologic/Lymphatic: Hematologic/Lymphatic: Reports no additional hematologic/lymphatic complaints Allergic/Immunologic: Allergic/Immunologic: Reports no additional allergic/immunologic complaints PMFSH Past Medical History Medical History Atrial fibrillation COPD (chronic obstructive pulmonary disease) PFT 11/02/2021: Severe obstructive airway disease with air trapping, lung hyperinflation and significant response to bronchodilators. Severely reduced diffusion capacity Glaucoma Hypercholesterolemia Hypertension Kidney stones Polycythemia secondary to hypoxia Pulmonary nodule 7 mm left lower lobe nodule increased in size compared to prior exam 2016 with recommended follow-up CT scan in March-April Patient stated she had a PET scan which was negative. She stated she was told that it was granulomatosis Surgical History Surgical History H/O cystoscopy History of 2 sections History of extraction of renal calculus Family History Family History Father Acute myocardial infarction Hypertension Mother Chronic obstructive pulmonary disease Sibling Chronic obstructive pulmonary disease Hypertension Pulmonary hypertension Social History Social Histor
[2022-10-24] MEDS: RIVAROXABAN 15 MG TABLET PO (17:12)
[2022-10-25] VITALS (21 sets, daily range): BP systolic 104–138; BP diastolic 56–69; PULSE 61–93; RESP 16–22; TEMP 36.3–37; O2SAT 92–97
[2022-10-25] MEDS: ACETAMINOPHEN 500 MG TABLET PO (03:10)
[2022-10-25 05:44] LABS: Hematocrit 33.2 % (37.0-47.0); Hemoglobin 10.2 g/dL (12.0-15.0); Mean Corpuscular HGB Conc 30.7 g/dl (32-36); Mean Corpuscular Hemoglobin 29.3 pg (26-34); Mean Corpuscular Volume 95.4 fl (80-100); Mean Platelet Volume 9.7 fl (7.4-10.4); Platelet Count Result 310 k/mm3 (150-375); Red Blood Count 3.48 M/mm3 (4.2-5.4); Red Cell Distribution Width 13.2 % (11.5-14.5); White Blood Count 11.1 K/mm3 (4.5-10.0)
[2022-10-25 05:57] LABS: Anion Gap 1 mmol/L (8-16); Blood Urea Nitrogen 16 mg/dL (7-17); Calcium 8.6 mg/dL (8.4-10.2); Carbon Dioxide 30 mmol/L (22-30); Chloride 105 mmol/L (98-107); Estimated CRCL calculation 41 ml/min; Estimated Glomerular Filt Rate > 60; Glucose 92 mg/dL (65-110); Magnesium 1.7 mg/dL (1.6-2.3); Potassium 4.1 mmol/L (3.4-5.0); Sodium 136 mmol/L (137-145)
[2022-10-25] MEDS: FLUTICASONE/UMECLIDIN/VILANTER 100-62.5-25 MCG ELLIPTA 1 PUFF INHALATION (09:01)
[2022-10-25] MEDS: ALBUTEROL SULFATE NEB 2.5 MG/3 ML INH INHALATION ×3 (09:01→21:06)
[2022-10-25] MEDS: IPRATROPIUM BR 0.02% INH SOLN 0.5 MG/2.5 ML VIAL INHALATION ×3 (09:01→21:06)
[2022-10-25] MEDS: ESCITALOPRAM OXALATE 5 MG TABLET PO (09:02)
[2022-10-25] MEDS: SOTALOL HCL 80 MG TABLET PO ×2 (09:02→20:38)
[2022-10-25] MEDS: MAGNESIUM OXIDE 400 MG TABLET PO (09:02)
[2022-10-25] MEDS: dilTIAZem HCL CD 180 MG CAP.ER.24H PO (09:02)
[2022-10-25] MEDS: ERGOCALCIFEROL 50,000 UNITS CAPSULE 50000 UNITS PO (09:02)
[2022-10-25] MEDS: MIRABEGRON 25 MG ER TABLET PO (09:02)
[2022-10-25] MEDS: SPIRONOLACTONE 25 MG TABLET PO (09:03)
--- NOTE | 2022-10-25 12:21 | PM.IMPN ---
Progress Note: A&P Assessment and Plan (1) Atrial flutter: Code(s): I48.92 - Unspecified atrial flutter Status: Acute Assessment and Plan: ED-[facility] narrative: Patient is a 72-year-old female who presents the emergency department with chief complaint of dizziness patient reports that she has had difficulty hearing out of her right ear for about a week reports that she used drops in her ear to try to irrigate this without success.? Patient reports she started having sensation of though she was spending and reports this feels similar to whenever she had vertigo in the past.? Patient reports its worse whenever she opens her eyes the patient reports no trauma does report that she is on blood thinners for atrial fibrillation.? Patient reports no chest pain reports that she has had nausea and vomiting and now is at the point of dry heaving.? The patient was in the hospital recently for pneumonia and has finished her course of antibiotics.? Patient is on Cardizem and on Xarelto. 10/25/2022 interval history: patient is 72-year-old female with long history of smoking and severe emphysema COPD presented emergency department with complaint dizziness and right ear pain, patient describes very dizzy being vertical there is no change with movement of her head and room was not removing, patient right ear was irrigated in the emergency depart and patient stats her symptoms have improved, however today patient still c/o bieng dizzy, suspect most likely her persistent A. fib and flutter, patient also found to have history of atrial fibrillation however patient was in RVR and was started on diltiazem drip in ER patient rate was trending down, patient was seen by Cardiology suspect her arrhythmias secondary to persistent COPD recommended to increase her oral diltiazem to 180 mg q.d. we have the district service manager reevaluate, will continue monitor further recommendation to follow. (2) Vertigo: Code(s): R42 - Dizziness and giddiness Status: Acute Assessment and Plan: most likely secondary to infection and ear symptoms have improved (3) Atrial fibrillation with RVR: Code(s): I48.91 - Unspecified atrial fibrillation Status: Acute Assessment and Plan: plan is above (4) Tobacco abuse: Code(s): Z72.0 - Tobacco use Status: Acute Assessment and Plan: patient does not smoke currently (5) Protein calorie malnutrition: Code(s): E46 - Unspecified protein-calorie malnutrition Status: Acute Assessment and Plan: will consult fleet sales manager and dietitian further recommendation. Subjective Date/time seen: 10/25/22 12:21 ED-HPI narrative: Patient is a 72-year-old female who presents the emergency department with chief complaint of dizziness patient reports that she has had difficulty hearing out of her right ear for about a week reports that she used drops in her ear to try to irrigate this without success.? Patient reports she started having sensation of though she was spending and reports this feels similar to whenever she had vertigo in the past.? Patient reports its worse whenever she opens her eyes the patient reports no trauma does report that she is on blood thinners for atrial fibrillation.? Patient reports no chest pain reports that she has had nausea and vomiting and now is at the point of dry heaving.? The patient was in the hospital recently for pneumonia and has finished her course of antibiotics.? Patient is on Cardizem and on Xarelto. 10/25/2022 interval history: patient is 72-year-old female with long history of smoking and severe emphysema COPD presented emergency department with complaint dizziness and right ear pain, patient describes very dizzy being vertical there is no change with movement of her head and room was not removing, patient right ear was irrigated in the emergency depart and patient stats her symptoms have improved, however today patient still c/o bieng dizzy, guerrero
[2022-10-25] MEDS: MECLIZINE HCL 25 MG TABLET PO (12:49)
[2022-10-25] MEDS: RIVAROXABAN 15 MG TABLET PO (17:22)
[2022-10-25] MEDS: guaiFENesin 200 MG/10 ML UDC PO (20:38)
[2022-10-25] MEDS: PRAVASTATIN SODIUM 20 MG TABLET PO (20:38)
[2022-10-26] VITALS (17 sets, daily range): BP systolic 107–122; BP diastolic 62–78; PULSE 58–137; RESP 14–18; TEMP 36.4–36.8; O2SAT 94–99
[2022-10-26 05:59] LABS: Hematocrit 34.3 % (37.0-47.0); Hemoglobin 10.7 g/dL (12.0-15.0); Mean Corpuscular HGB Conc 31.2 g/dl (32-36); Mean Corpuscular Hemoglobin 29.3 pg (26-34); Platelet Count Result 319 k/mm3 (150-375); Red Blood Count 3.65 M/mm3 (4.2-5.4); Red Cell Distribution Width 12.9 % (11.5-14.5); White Blood Count 11.6 K/mm3 (4.5-10.0)
[2022-10-26 06:17] LABS: Anion Gap 1 mmol/L (8-16); Blood Urea Nitrogen 10 mg/dL (7-17); Calcium 8.6 mg/dL (8.4-10.2); Carbon Dioxide 34 mmol/L (22-30); Chloride 101 mmol/L (98-107); Estimated CRCL calculation 42 ml/min; Estimated Glomerular Filt Rate > 60; Glucose 102 mg/dL (65-110); Magnesium 1.7 mg/dL (1.6-2.3); Sodium 136 mmol/L (137-145)
--- NOTE | 2022-10-26 06:42 | ECG_ITS ---
Measurements Intervals [place] Rate: 131 P: NV: 0 QRS: 78 QRSD: 88 T: 100 QT: 317 QTc: 468 Interpretive Statements ATRIAL FIBRILLATION WITH RAPID VENTRICULAR RESPONSE LOW QRS VOLTAGE IN EXTREMITY LEADS [QRS DEFLECTION < 0.5 mV IN LIMB LEADS] COMPARED TO ECG 10/24/2022 03:45:21 ATRIAL FIBRILLATION NOW PRESENT Electronically Signed On 10-26-2022 14:58:00 MOTOR VEHICLE ASSEMBLER by Bartolo Baker M.D.
--- NOTE | 2022-10-26 06:59 | PC.NURSE ---
Patient heart rate began trending upward. Heart rate sustained 110-120s. All other vitals WNL. Patient asymptomatic. Call placed to hospitalist. Advised to place a call to felt pad cutter. Spoke with Dr Mckeon, instructed to order EKG. EKG reading AFIB with RVR. Call placed to cardiology, awaiting call back for further orders. Patient remains asymptomatic. Heart rate currently 124.
--- NOTE | 2022-10-26 09:03 | PM.IMPN ---
Progress Note: A&P Assessment and Plan (1) Atrial flutter: Code(s): I48.92 - Unspecified atrial flutter Status: Acute (2) Vertigo: Code(s): R42 - Dizziness and giddiness Status: Acute Assessment and Plan: presented with dizziness and right ear pain . Was irrigated in the ED most likely secondary to infection and ear symptoms have improved CT head with no significant abnormality seen (3) Atrial fibrillation with RVR: Code(s): I48.91 - Unspecified atrial fibrillation Status: Acute Assessment and Plan: intermittently go into AFib with RVR. Currently already on sotalol and Cardizem Xarelto for stroke prophylaxis Will replace magnesium (4) Tobacco abuse: Code(s): Z72.0 - Tobacco use Status: Acute Assessment and Plan: patient does not smoke currently (5) Protein calorie malnutrition: Code(s): E46 - Unspecified protein-calorie malnutrition Status: Acute Assessment and Plan: legend maker to follow (6) Hypotension: Code(s): I95.9 - Hypotension, unspecified Status: Acute Assessment and Plan: patient hypotensive on arrival to the ED on . This is now resolved. Plan chronic hypoxic respiratory failure underlying severe COPD. Oxygen supplementation via nasal cannula.Intermittent hypoxia last admission. Continue on bronchodilators Xavi Gaytan follows with Pulmonary as an outpatient basis. Chest x-ray on admission with hazy left upper lobe airspace disease correlate for pneumonia. Probable underlying left upper lobe scarring versus additional pneumonia. 8 mm pulmonary nodule Hypertension Anxiety disorder Subjective Date/time seen: 10/26/22 09:03 Interval history: Presented with dizziness. Recently admitted for pneumonia and finished antibiotic course. Patient went to AFib with RVR while in the ER. Was started on amiodarone and converted back to sinus rhythm. went into AFib with RVR last nigh. feels dizzy lightheaded Review of Systems Review of Systems: All systems reviewed & are unremarkable except as noted in HPI and below Exam Narrative: General: chronically ill and malnourished Patient is comfortable, NAD HEENT: eyes are clear and none icteric right tympanic membrane hyperemic LUNGS: bilateral poor air with harsh breath sounds HEART: irregularly irregular AFib with RVR on telemetry ABD: not distended, soft, nontender Lower extremities: no edema cyanosis or clubbing SKIN: nonjaundiced Neuro: grossly intact. Objective Data Vital Signs Vital Signs: Vital Signs - 24 hr 10/25/22 09:45 10/25/22 12:47 10/25/22 12:49 Temperature 98.6 F Pulse Rate 63 65 Respiratory Rate 18 18 Blood Pressure 112/60 110/56 L Pulse Oximetry 97 95 Oxygen Delivery Nasal Cannula Oxygen Flow Rate 2 10/25/22 12:52 10/25/22 13:28 10/25/22 13:42 Temperature Pulse Rate 68 66 61 Respiratory Rate 18 20 18 Blood Pressure 104/56 L Pulse Oximetry 92 Oxygen Delivery Oxygen Flow Rate 10/25/22 12:04 10/25/22 16:00 10/25/22 20:25 Temperature 97.6 F Pulse Rate 65 62 64 Respiratory Rate 16 Blood Pressure 138/69 Pulse Oximetry 97 Oxygen Delivery Oxygen Flow Rate 10/25/22 20:38 10/25/22 21:08 10/25/22 21:10 Temperature Pulse Rate 68 65 Respiratory Rate 18 Blood Pressure Pulse Oximetry 93 Oxygen Delivery Nasal Cannula Oxygen Flow Rate 2 10/25/22 21:26 10/25/22 20:00 10/25/22 20:00 Temperature Pulse Rate 68 68 67 Respiratory Rate 20 20 Blood Pressure Pulse Oximetry 93 Oxygen Delivery Nasal Cannula Oxygen Flow Rate 2 10/26/22 00:00 10/26/22 04:00 10/26/22 05:41 Temperature 98.3 F Pulse Rate 68 116 H 120 H Respiratory Rate 16 Blood Pressure 118/73 Pulse Oximetry 99 Oxygen Delivery Oxygen Flow Rate 10/26/22 06:44 Temperature Pulse Rate 134 H Respiratory Rate Blood Pressure 118/73
[2022-10-26] MEDS: SPIRONOLACTONE 25 MG TABLET PO (09:26)
[2022-10-26] MEDS: dilTIAZem HCL CD 180 MG CAP.ER.24H PO (09:26)
[2022-10-26] MEDS: SOTALOL HCL 80 MG TABLET PO (09:27)
[2022-10-26] MEDS: ESCITALOPRAM OXALATE 5 MG TABLET PO (09:27)
[2022-10-26] MEDS: MAGNESIUM OXIDE 400 MG TABLET PO (09:27)
[2022-10-26] MEDS: guaiFENesin 200 MG/10 ML UDC PO ×4 (09:27→20:15)
[2022-10-26] MEDS: MIRABEGRON 25 MG ER TABLET PO (09:27)
[2022-10-26] MEDS: FLUTICASONE/UMECLIDIN/VILANTER 100-62.5-25 MCG ELLIPTA 1 PUFF INHALATION (10:27)
--- NOTE | 2022-10-26 10:28 | PCRCNOTE ---
Nebulizer tx held at this time due to heart rate of 130.
--- NOTE | 2022-10-26 10:29 | PCRCNOTE ---
Window of time for administration has passed. See next scheduled administration.
--- NOTE | 2022-10-26 12:41 | PM.PNCARD ---
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 This is triggering atrial arrhythmias, both atrial fibrillation and atypical slow atrial flutter.? When we saw her in initial consultation, she was in sinus rhythm and asymptomatic. Her home Diltiazem was increased to 180mg. We had recommending switching her Sotalol to Flecainide, however, patient wanted to follow up with her primary Flap Presser instead of making change at that time. We are now re-consulted as patient in atrial fibrillation with RVR this morning. I am going to increase her Diltiazem to 240mg. Discussed with patient that since Sotalol is not effective in maintaining sinus rhythm, recommend to change to another antiarrhythmic at this time. Patient agrees. Will start Flecainide 10/27 after allowing Sotalol washout. Continue to monitor on telemetry. Continue Xarelto for anticoagulation. Subjective Date/time seen: 10/26/22 12:41 Interval history: Reason for visit: Atrial fibrillation/flutter with RVR HPI: This is a 72-year-old woman I am seeing at the request of the hospitalist today after she was admitted to the hospital in the middle of the night with the diagnosis of AFib with RVR.? The patient has a rotary pump operator elsewhere that she is seeing for management of atrial fibrillation she thinks for something like 4-5 years.? She has no other cardiac problems and is taking a regimen of sotalol, diltiazem for her atrial fibrillation.? According to the patient and her her atrial fibrillation is felt to be the result of severe underlying lung disease.? The patient is a former smoker of many years and has developed severe advanced COPD/emphysema.? Her convenience store clerk is here at [facility] with her other physicians are not.? She came to the hospital emergency room in the middle of the night with symptoms of dizziness.? She says she has felt dizzy like this in the past when she was in atrial fibrillation.? She says that she does not like the hospital in [place] where her physician works and so she came here for treatment.? In the emergency room she was given orders to receive amiodarone I am not sure if she actually received any or not because then the those orders were canceled because of her underlying lung disease.? She was continued on her sotalol and admitted to IMU.? She is comfortable and has no complaints at this time.? According to my personal review of her 12 lead ECGs she did not have atrial fibrillation but rather slow atrial flutter and when she was tachycardic she was in one-to-one conduction.? The QRS was narrow and she now is in sinus rhythm with heart rates in the 60s.? The patient states that in addition to sotalol 80 mg twice daily she takes diltiazem CD 120 mg daily for these arrhythmias.? The diltiazem is not ordered on her current chart.? She states that her rotary pump operator told her that if she continues to have arrhythmias they might have to adjust her to a different antiarrhythmic medication which would necessitate admitting her to the hospital.? Long discussion with the patient and her about this issue I told her that a reasonable option would be to transition her from sotalol to flecainide however the patient does not wish to do this she wishes to be discharged and have follow-up with her established rotary pump operator which is actually scheduled on of this week and discuss these issues with him.? I told her in the meantime I would recommend advancing the dose of her diltiazem to 180 mg and she is agreeable to this. Date of service 10/26: We had signed off on the patient on 10/24, but reconsulted this morning for atrial fibrillation with RVR. Patient states being
--- NOTE | 2022-10-26 13:43 | PC.NURSE ---
On 10/26/22, the student, [Ayana Billingsley], provided care and completed [employer] documentation on this patient. I have reviewed the student's documentation and agree with the findings.
[2022-10-26] MEDS: IPRATROPIUM BR 0.02% INH SOLN 0.5 MG/2.5 ML VIAL INHALATION ×2 (13:57→20:57)
[2022-10-26] MEDS: RIVAROXABAN 15 MG TABLET PO (17:14)
[2022-10-26] MEDS: PRAVASTATIN SODIUM 20 MG TABLET PO (20:15)
[2022-10-27] VITALS (18 sets, daily range): BP systolic 122–143; BP diastolic 64–81; PULSE 62–87; RESP 14–22; TEMP 36.2–36.8; O2SAT 94–98
[2022-10-27 06:01] LABS: Hematocrit 35.1 % (37.0-47.0); Hemoglobin 10.8 g/dL (12.0-15.0); Mean Corpuscular HGB Conc 30.8 g/dl (32-36); Mean Corpuscular Hemoglobin 28.8 pg (26-34); Mean Corpuscular Volume 93.6 fl (80-100); Mean Platelet Volume 9.7 fl (7.4-10.4); Platelet Count Result 322 k/mm3 (150-375); Red Blood Count 3.75 M/mm3 (4.2-5.4); Red Cell Distribution Width 12.9 % (11.5-14.5); White Blood Count 10.6 K/mm3 (4.5-10.0)
[2022-10-27 06:18] LABS: Anion Gap 3 mmol/L (8-16); Blood Urea Nitrogen 10 mg/dL (7-17); Calcium 8.6 mg/dL (8.4-10.2); Carbon Dioxide 34 mmol/L (22-30); Chloride 98 mmol/L (98-107); Estimated CRCL calculation 41 ml/min; Estimated Glomerular Filt Rate > 60; Glucose 94 mg/dL (65-110); Magnesium 1.8 mg/dL (1.6-2.3); Potassium 4.1 mmol/L (3.4-5.0); Sodium 135 mmol/L (137-145)
[2022-10-27] MEDS: dilTIAZem HCL CD 180 MG CAP.ER.24H PO (08:23)
[2022-10-27] MEDS: ESCITALOPRAM OXALATE 5 MG TABLET PO (08:23)
[2022-10-27] MEDS: guaiFENesin 200 MG/10 ML UDC PO ×4 (08:24→21:28)
[2022-10-27] MEDS: FLECAINIDE ACETATE 50 MG TABLET PO ×2 (08:24→21:27)
[2022-10-27] MEDS: MAGNESIUM OXIDE 400 MG TABLET PO (08:25)
[2022-10-27] MEDS: MIRABEGRON 25 MG ER TABLET PO (08:25)
[2022-10-27] MEDS: SPIRONOLACTONE 25 MG TABLET PO (08:26)
[2022-10-27] MEDS: IPRATROPIUM BR 0.02% INH SOLN 0.5 MG/2.5 ML VIAL INHALATION ×2 (09:05→14:56)
[2022-10-27] MEDS: FLUTICASONE/UMECLIDIN/VILANTER 100-62.5-25 MCG ELLIPTA 1 PUFF INHALATION (09:40)
--- NOTE | 2022-10-27 10:02 | PM.PNCARD ---
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 This is triggering atrial arrhythmias, both atrial fibrillation and atypical slow atrial flutter.? When we saw her in initial consultation, she was in sinus rhythm and asymptomatic. Her home Diltiazem was increased to 180mg. We had recommending switching her Sotalol to Flecainide, however, patient wanted to follow up with her primary Fountain Roller Assembler instead of making change at that time. We are now re-consulted as patient went back into AFIB with RVR. Discussed with patient that since Sotalol is not effective in maintaining sinus rhythm, recommend to change to another antiarrhythmic at this time. Patient agrees. Will start Flecainide 10/27 after allowing Sotalol washout. Continue with Diltiazem. Currently in sinus rhythm. Continue to monitor on telemetry. Continue Xarelto for anticoagulation. Subjective Date/time seen: 10/27/22 10:02 Interval history: Reason for visit: Atrial fibrillation/flutter with RVR HPI: This is a 72-year-old woman I am seeing at the request of the hospitalist today after she was admitted to the hospital in the middle of the night with the diagnosis of AFib with RVR.? The patient has a yard labor supervisor elsewhere that she is seeing for management of atrial fibrillation she thinks for something like 4-5 years.? She has no other cardiac problems and is taking a regimen of sotalol, diltiazem for her atrial fibrillation.? According to the patient and her her atrial fibrillation is felt to be the result of severe underlying lung disease.? The patient is a former smoker of many years and has developed severe advanced COPD/emphysema.? Her franchise specialist is here at [facility] with her other physicians are not.? She came to the hospital emergency room in the middle of the night with symptoms of dizziness.? She says she has felt dizzy like this in the past when she was in atrial fibrillation.? She says that she does not like the hospital in [place] where her physician works and so she came here for treatment.? In the emergency room she was given orders to receive amiodarone I am not sure if she actually received any or not because then the those orders were canceled because of her underlying lung disease.? She was continued on her sotalol and admitted to IMU.? She is comfortable and has no complaints at this time.? According to my personal review of her 12 lead ECGs she did not have atrial fibrillation but rather slow atrial flutter and when she was tachycardic she was in one-to-one conduction.? The QRS was narrow and she now is in sinus rhythm with heart rates in the 60s.? The patient states that in addition to sotalol 80 mg twice daily she takes diltiazem CD 120 mg daily for these arrhythmias.? The diltiazem is not ordered on her current chart.? She states that her yard labor supervisor told her that if she continues to have arrhythmias they might have to adjust her to a different antiarrhythmic medication which would necessitate admitting her to the hospital.? Long discussion with the patient and her about this issue I told her that a reasonable option would be to transition her from sotalol to flecainide however the patient does not wish to do this she wishes to be discharged and have follow-up with her established yard labor supervisor which is actually scheduled on of this week and discuss these issues with him.? I told her in the meantime I would recommend advancing the dose of her diltiazem to 180 mg and she is agreeable to this. Date of service 10/26: We had signed off on the patient on 10/24, but reconsulted this morning for atrial fibrillation with RVR. Patient states being in RVR bo
--- NOTE | 2022-10-27 10:29 | PM.IMPN ---
Progress Note: A&P Assessment and Plan (1) Atrial flutter: Code(s): I48.92 - Unspecified atrial flutter Status: Acute (2) Vertigo: Code(s): R42 - Dizziness and giddiness Status: Acute Assessment and Plan: presented with dizziness and right ear pain . Was irrigated in the ED . Right ear examination reveal impacted wax. Will order Debrox and will likely need ear lavage. Will continue Flonase nasal spray as well as [place] nasal spray most likely secondary to infection and ear symptoms have improved CT head with no significant abnormality seen (3) Atrial fibrillation with RVR: Code(s): I48.91 - Unspecified atrial fibrillation Status: Acute Assessment and Plan: intermittently go into AFib with RVR. Currently already on sotalol and Cardizem Xarelto for stroke prophylaxis Will replace magnesium Back to sinus rhythm placed on flecainide by bss solution architect and stop sotalol (4) Tobacco abuse: Code(s): Z72.0 - Tobacco use Status: Acute Assessment and Plan: patient does not smoke currently (5) Protein calorie malnutrition: Code(s): E46 - Unspecified protein-calorie malnutrition Status: Acute Assessment and Plan: head baggage porter to follow (6) Hypotension: Code(s): I95.9 - Hypotension, unspecified Status: Acute Assessment and Plan: patient hypotensive on arrival to the ED on . This is now resolved. Plan chronic hypoxic respiratory failure underlying severe COPD. Oxygen supplementation via nasal cannula.Intermittent hypoxia last admission. Continue on bronchodilators Xavi Gaytan follows with Pulmonary as an outpatient basis. Chest x-ray on admission with hazy left upper lobe airspace disease correlate for pneumonia. Probable underlying left upper lobe scarring versus additional pneumonia. 8 mm pulmonary nodule Hypertension Anxiety disorder Subjective Date/time seen: 10/27/22 10:29 Interval history: Presented with dizziness. Recently admitted for pneumonia and finished antibiotic course. Patient went to AFib with RVR while in the ER. Was started on amiodarone and converted back to sinus rhythm. went into AFib with RVR last nigh. feels dizzy lightheaded 10/27/2022: Patient flipped back to sinus rhythm yesterday in the afternoon. And has remained in sinus since then. She feels much better. She feels her right ear still feels full. Breathing is stable. She does have chronic cough due to her underlying COPD. This is unchanged Review of Systems Review of Systems: All systems reviewed & are unremarkable except as noted in HPI and below Exam Narrative: General: chronically ill and malnourished Patient is comfortable, NAD HEENT: eyes are clear and none icteric right tympanic membrane hyperemic LUNGS: bilateral poor air with harsh breath sounds HEART: regular rate and rhythm sinus on telemetry. ABD: not distended, soft, nontender Lower extremities: no edema cyanosis or clubbing SKIN: nonjaundiced Neuro: grossly intact. Objective Data Vital Signs Vital Signs: Vital Signs - 24 hr 10/26/22 13:57 10/26/22 14:12 10/26/22 14:57 Temperature 97.9 F Pulse Rate 106 H 58 L 60 Respiratory Rate 18 18 18 Blood Pressure 107/62 Pulse Oximetry 98 Oxygen Delivery Oxygen Flow Rate 10/26/22 12:00 10/26/22 16:00 10/26/22 19:57 Temperature 98.3 F Pulse Rate 115 H 59 L 63 Respiratory Rate 14 Blood Pressure 120/62 Pulse Oximetry 98 Oxygen Delivery Oxygen Flow Rate 10/26/22 20:58 10/26/22 21:01 10/26/22 20:00 Temperature Pulse Rate 64 64 65 Respiratory Rate 18 Blood Pressure Pulse Oximetry 94 Oxygen Delivery Nasal Cannula Oxygen Flow Rate 2 10/27/22 00:00 10/27/22 04:00 10/27/22 06:44 Temperature 97.9 F Pulse Rate 62 68 78 Respiratory Rate 14 Blood Pressure 143/79 H Pulse Oximetry 97 Oxygen Delivery Oxygen Flow Rate
--- NOTE | 2022-10-27 13:08 | P.CDI_ITS ---
CDI Query Clarified Diagnosis Clarified Diagnosis: BMI 15.0 Nutritional Diagnostic Statement Severe malnutrition related to inadequate protein energy intake as evidence by less than 50% oral intake of estimated needs for greater than 1 month, and visible significant subcutaneous fat loss and muscle wasting in all areas. Please clarify Protein Calorie Malnutrition: * Mild * Moderate * Severe * Other/Unspecified <Karla Terrell RN - Last Filed: 10/27/22 13:13> Provider Comments severe malnutrition <Luis A Deluca MD - Last Filed: 10/28/22 14:13>
[2022-10-27] MEDS: RIVAROXABAN 15 MG TABLET PO (17:26)
[2022-10-27] MEDS: PRAVASTATIN SODIUM 20 MG TABLET PO (21:27)
[2022-10-27] MEDS: FLUTICASONE PROPIONATE 0.05% NA SPR 16 GM BTL (*BKC) 1 SPRAY NASAL (21:28)
[2022-10-28] VITALS (21 sets, daily range): BP systolic 105–137; BP diastolic 64–79; PULSE 77–156; RESP 19–24; TEMP 36.4–36.7; O2SAT 94–98
[2022-10-28 05:08] LABS: Hematocrit 36.7 % (37.0-47.0); Hemoglobin 11.5 g/dL (12.0-15.0); Mean Corpuscular HGB Conc 31.3 g/dl (32-36); Mean Corpuscular Hemoglobin 29.6 pg (26-34); Mean Corpuscular Volume 94.3 fl (80-100); Mean Platelet Volume 9.5 fl (7.4-10.4); Platelet Count Result 346 k/mm3 (150-375); Red Blood Count 3.89 M/mm3 (4.2-5.4); Red Cell Distribution Width 12.9 % (11.5-14.5); White Blood Count 12.9 K/mm3 (4.5-10.0)
[2022-10-28 05:15] LABS: Anion Gap 3 mmol/L (8-16); Blood Urea Nitrogen 11 mg/dL (7-17); Calcium 8.8 mg/dL (8.4-10.2); Carbon Dioxide 34 mmol/L (22-30); Chloride 101 mmol/L (98-107); Estimated CRCL calculation 48 ml/min; Estimated Glomerular Filt Rate > 60; Glucose 97 mg/dL (65-110); Magnesium 1.8 mg/dL (1.6-2.3); Potassium 3.7 mmol/L (3.4-5.0); Sodium 138 mmol/L (137-145)
--- NOTE | 2022-10-28 06:16 | PC.NURSE ---
Called hospitalist, Dr. Ricci, to notify about pt's HR being in the 130s-140s and a-fib rhythm on tele. Pt is asymptomatic at this time. Orders to give morning dose of diltiazem now.
[2022-10-28] MEDS: dilTIAZem HCL CD 180 MG CAP.ER.24H PO (06:21)
[2022-10-28] MEDS: FLECAINIDE ACETATE 50 MG TABLET PO (08:01)
[2022-10-28] MEDS: ESCITALOPRAM OXALATE 5 MG TABLET PO (08:02)
[2022-10-28] MEDS: FLUTICASONE PROPIONATE 0.05% NA SPR 16 GM BTL (*BKC) 1 SPRAY NASAL ×2 (08:02→20:52)
[2022-10-28] MEDS: MIRABEGRON 25 MG ER TABLET PO (08:03)
[2022-10-28] MEDS: MAGNESIUM OXIDE 400 MG TABLET PO (08:03)
[2022-10-28] MEDS: guaiFENesin 200 MG/10 ML UDC PO ×4 (08:03→20:53)
[2022-10-28] MEDS: SPIRONOLACTONE 25 MG TABLET PO (08:03)
--- NOTE | 2022-10-28 08:20 | PC.NURSE ---
this nurse spoke with Glenna Hill-DIE REPAIRER TRIMMER DIES with [facility]. to notify her of pts. afib with RVR. Glenna will come see her later today.
[2022-10-28] MEDS: ACETAMINOPHEN 500 MG TABLET PO (08:29)
--- NOTE | 2022-10-28 08:30 | PM.PNCARD ---
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 This is triggering atrial arrhythmias, both atrial fibrillation and atypical slow atrial flutter.? When we saw her in initial consultation, she was in sinus rhythm and asymptomatic. Her home Diltiazem was increased to 180mg. We had recommending switching her Sotalol to Flecainide, however, patient wanted to follow up with her primary Television Analyzer instead of making change at that time. We are now re-consulted as patient went back into AFIB with RVR. Flecainide was started 10/27 after allowing Sotalol washout. Diltiazem was continued. She was in sinus rhythm at the time, but went back into atrial fibrillation with RVR earlier this morning. I am going to increase her flecainide dose to 100mg b.i.d. Continue to monitor on telemetry. Continue Xarelto for anticoagulation. Subjective Date/time seen: 10/28/22 08:30 Interval history: Reason for visit: Atrial fibrillation/flutter with RVR HPI: This is a 72-year-old woman I am seeing at the request of the hospitalist today after she was admitted to the hospital in the middle of the night with the diagnosis of AFib with RVR.? The patient has a carding machine feeder elsewhere that she is seeing for management of atrial fibrillation she thinks for something like 4-5 years.? She has no other cardiac problems and is taking a regimen of sotalol, diltiazem for her atrial fibrillation.? According to the patient and her her atrial fibrillation is felt to be the result of severe underlying lung disease.? The patient is a former smoker of many years and has developed severe advanced COPD/emphysema.? Her police officer booking is here at [facility] with her other physicians are not.? She came to the hospital emergency room in the middle of the night with symptoms of dizziness.? She says she has felt dizzy like this in the past when she was in atrial fibrillation.? She says that she does not like the hospital in [place] where her physician works and so she came here for treatment.? In the emergency room she was given orders to receive amiodarone I am not sure if she actually received any or not because then the those orders were canceled because of her underlying lung disease.? She was continued on her sotalol and admitted to IMU.? She is comfortable and has no complaints at this time.? According to my personal review of her 12 lead ECGs she did not have atrial fibrillation but rather slow atrial flutter and when she was tachycardic she was in one-to-one conduction.? The QRS was narrow and she now is in sinus rhythm with heart rates in the 60s.? The patient states that in addition to sotalol 80 mg twice daily she takes diltiazem CD 120 mg daily for these arrhythmias.? The diltiazem is not ordered on her current chart.? She states that her carding machine feeder told her that if she continues to have arrhythmias they might have to adjust her to a different antiarrhythmic medication which would necessitate admitting her to the hospital.? Long discussion with the patient and her about this issue I told her that a reasonable option would be to transition her from sotalol to flecainide however the patient does not wish to do this she wishes to be discharged and have follow-up with her established carding machine feeder which is actually scheduled on of this week and discuss these issues with him.? I told her in the meantime I would recommend advancing the dose of her diltiazem to 180 mg and she is agreeable to this. Date of service 10/26: We had signed off on the patient on 10/24, but reconsulted this morning for atrial fibrillation with RVR. Patient states being in RVR makes her feel weak, but
[2022-10-28] MEDS: IPRATROPIUM BR 0.02% INH SOLN 0.5 MG/2.5 ML VIAL INHALATION ×3 (08:54→21:19)
[2022-10-28] MEDS: FLUTICASONE/UMECLIDIN/VILANTER 100-62.5-25 MCG ELLIPTA 1 PUFF INHALATION (08:55)
--- NOTE | 2022-10-28 12:37 | PC.NURSE ---
this nurse spoke with Glenna Hill in cardiology and was instructed to administer a one time dose of diltiazem 30 mg po now. Orders were entered by this RN and permission was verbally given to override Xarelto/ Diltiazem warning.
[2022-10-28] MEDS: dilTIAZem HCL 30 MG TABLET PO (13:03)
--- NOTE | 2022-10-28 14:05 | PM.IMPN ---
Progress Note: A&P Assessment and Plan (1) Atrial flutter: Code(s): I48.92 - Unspecified atrial flutter Status: Acute (2) Vertigo: Code(s): R42 - Dizziness and giddiness Status: Acute Assessment and Plan: presented with dizziness and right ear pain . Was irrigated in the ED . Right ear examination reveal impacted wax. Will order Debrox and will likely need ear lavage. Will continue Flonase nasal spray as well as [place] nasal spray most likely secondary to infection and ear symptoms have improved CT head with no significant abnormality seen dizzness with assocaited double vision, binocular, concern for stroke. will get mri brain to further evaluate (3) Atrial fibrillation with RVR: Code(s): I48.91 - Unspecified atrial fibrillation Status: Acute Assessment and Plan: intermittently go into AFib with RVR. Currently already on sotalol and Cardizem Xarelto for stroke prophylaxis Will replace magnesium back to sinus spontaneously, however went into afib with rvr again. started on flecainide per cardiology (4) Tobacco abuse: Code(s): Z72.0 - Tobacco use Status: Acute Assessment and Plan: patient does not smoke currently (5) Protein calorie malnutrition: Code(s): E46 - Unspecified protein-calorie malnutrition Status: Acute Assessment and Plan: second miller to follow (6) Hypotension: Code(s): I95.9 - Hypotension, unspecified Status: Acute Assessment and Plan: patient hypotensive on arrival to the ED on . This is now resolved. Plan chronic hypoxic respiratory failure underlying severe COPD. Oxygen supplementation via nasal cannula.Intermittent hypoxia last admission. Continue on bronchodilators Xavi Gaytan follows with Pulmonary as an outpatient basis. Chest x-ray on admission with hazy left upper lobe airspace disease correlate for pneumonia. Probable underlying left upper lobe scarring versus additional pneumonia. 8 mm pulmonary nodule Hypertension Anxiety disorder Subjective Date/time seen: 10/28/22 14:05 Interval history: Presented with dizziness. Recently admitted for pneumonia and finished antibiotic course. Patient went to AFib with RVR while in the ER. Was started on amiodarone and converted back to sinus rhythm. went into AFib with RVR last nigh. feels dizzy lightheaded 10/27/2022: Patient flipped back to sinus rhythm yesterday in the afternoon. And has remained in sinus since then. She feels much better. She feels her right ear still feels full. Breathing is stable. She does have chronic cough due to her underlying COPD. This is unchanged 10/28/2022: she flipped into afib with rvr this am. patient reprots dizziness, had some double vision last night, she ddoes not have this anymore. she reports her breathing is about the same.she has been started on flecainide Review of Systems Review of Systems: All systems reviewed & are unremarkable except as noted in HPI and below Exam Narrative: General: chronically ill and malnourished Patient is comfortable, NAD HEENT: eyes are clear and none icteric right tympanic membrane hyperemic LUNGS: bilateral poor air with harsh breath sounds HEART: irregularly irregular, tachycardic, afib on telemetry ABD: not distended, soft, nontender Lower extremities: no edema cyanosis or clubbing SKIN: nonjaundiced Neuro: grossly intact. Objective Data Vital Signs Vital Signs: Vital Signs - 24 hr 10/27/22 15:00 10/27/22 14:59 10/27/22 15:14 Temperature Pulse Rate 80 80 81 Respiratory Rate 22 H 22 H 20 Blood Pressure Pulse Oximetry 94 Oxygen Delivery Nasal Cannula Oxygen Flow Rate 2 10/27/22 16:00 10/27/22 19:11 10/27/22 21:27 Temperature 97.2 F L Pulse Rate 82 87 87 Respiratory Rate 20 Blood Pressure 125/64 Pulse Oximetry 98 Oxygen Delivery Oxygen Flow Rate 10/27/22 20:00 10/27/22 21:
[2022-10-28] MEDS: METOPROLOL TARTRATE INJ 5 MG/5 ML VIAL IV PUSH (16:33)
[2022-10-28] MEDS: RIVAROXABAN 15 MG TABLET PO (16:34)
[2022-10-28] MEDS: FLECAINIDE ACETATE 100 MG TABLET PO (20:52)
[2022-10-28] MEDS: PRAVASTATIN SODIUM 20 MG TABLET PO (20:53)
[2022-10-29] VITALS (16 sets, daily range): BP systolic 125–145; BP diastolic 67–74; PULSE 80–112; RESP 18–20; TEMP 36.4–36.9; O2SAT 92–99
[2022-10-29] MEDS: ACETAMINOPHEN 500 MG TABLET PO ×2 (05:00→15:41)
[2022-10-29 05:40] LABS: Hemoglobin 11.4 g/dL (12.0-15.0); Mean Corpuscular HGB Conc 31.7 g/dl (32-36); Mean Corpuscular Hemoglobin 29.6 pg (26-34); Mean Corpuscular Volume 93.5 fl (80-100); Mean Platelet Volume 9.7 fl (7.4-10.4); Platelet Count Result 340 k/mm3 (150-375); Red Blood Count 3.85 M/mm3 (4.2-5.4); Red Cell Distribution Width 13.1 % (11.5-14.5); White Blood Count 11.8 K/mm3 (4.5-10.0)
[2022-10-29 05:44] LABS: Anion Gap 3 mmol/L (8-16); Blood Urea Nitrogen 14 mg/dL (7-17); Calcium 9.1 mg/dL (8.4-10.2); Carbon Dioxide 34 mmol/L (22-30); Chloride 98 mmol/L (98-107); Estimated CRCL calculation 36 ml/min; Estimated Glomerular Filt Rate > 60; Glucose 121 mg/dL (65-110); Magnesium 1.7 mg/dL (1.6-2.3); Potassium 3.7 mmol/L (3.4-5.0); Sodium 135 mmol/L (137-145)
[2022-10-29] MEDS: IPRATROPIUM BR 0.02% INH SOLN 0.5 MG/2.5 ML VIAL INHALATION ×3 (08:31→20:23)
[2022-10-29] MEDS: FLUTICASONE/UMECLIDIN/VILANTER 100-62.5-25 MCG ELLIPTA 1 PUFF INHALATION (08:32)
[2022-10-29] MEDS: dilTIAZem HCL CD 180 MG CAP.ER.24H PO (09:39)
[2022-10-29] MEDS: FLUTICASONE PROPIONATE 0.05% NA SPR 16 GM BTL (*BKC) 1 SPRAY NASAL ×2 (09:39→20:54)
[2022-10-29] MEDS: FLECAINIDE ACETATE 100 MG TABLET PO ×2 (09:39→20:55)
[2022-10-29] MEDS: ESCITALOPRAM OXALATE 5 MG TABLET PO (09:39)
[2022-10-29] MEDS: guaiFENesin 200 MG/10 ML UDC PO ×4 (09:40→20:55)
[2022-10-29] MEDS: SPIRONOLACTONE 25 MG TABLET PO (09:40)
[2022-10-29] MEDS: MAGNESIUM OXIDE 400 MG TABLET PO (09:40)
[2022-10-29] MEDS: MIRABEGRON 25 MG ER TABLET PO (09:40)
--- NOTE | 2022-10-29 11:06 | PM.PNCARD ---
Progress Note: A&P Assessment and Plan (1) Atrial flutter: Code(s): I48.92 - Unspecified atrial flutter Status: Acute Plan 72-year-old lady with: Severe chronic lung disease which has resulted in paroxysmal atrial fibrillation. We are treating this with flecainide with hopes of maintaining sinus rhythm or at least reducing the propensity for AF. She is in sinus rhythm this morning. Dosage of flecainide was increased yesterday. No adjustments in antiarrhythmic regimen are necessary today. We will continue to follow her on telemetry while she is in the hospital. Derek Hanks MD [facility] Subjective Date/time seen: Date of service: 10/29/22 11:06 Interval history: Follow-up visit in this 72-year-old lady with: Paroxysmal atrial fibrillation resulting from severe chronic lung disease. Patient is on flecainide treatment. Normal sinus rhythm on telemetry this morning. Dosage of flecainide was increased yesterday as she was in atrial fibrillation for a period of time yesterday. She is resting comfortably in bed reading a book in visiting with her Exam Const: General: comfortable and no acute distress Other: very thin cachectic appearing white female pleasant and cooperative HENMT: Mouth: Yes moist mucous membranes Eyes: Sclera: sclerae normal Pupils: Equal, round and reactive pupils present Neck: Neck: supple and no JVD Resp: Effort & Inspection: normal respiratory effort Other: breath sounds are diminished throughout both lung christianson tubular quality no rales prolonged expiratory phase Cardio: Rate: regular rate Rhythm: regular rhythm GI: GI Palp: Yes Soft to palpation Auscultation: normal bowel sounds Skin: General skin exam: normal color Neuro: Other: alert and oriented x3 Extrem: Other: warm well perfused, no edema Objective Data Vital Signs Vital Signs: Vital Signs - 24 hr 10/28/22 14:09 10/28/22 14:14 10/28/22 14:25 Temperature 36.4 C L Pulse Rate 113 H 133 H Respiratory Rate 19 20 Blood Pressure 105/78 Pulse Oximetry 96 98 Oxygen Delivery Nasal Cannula Oxygen Flow Rate 2 10/28/22 14:33 10/28/22 16:33 10/28/22 12:00 Temperature Pulse Rate 119 H 147 H 124 H Respiratory Rate 20 Blood Pressure Pulse Oximetry Oxygen Delivery Oxygen Flow Rate 10/28/22 20:52 10/28/22 21:19 10/28/22 21:22 Temperature Pulse Rate 122 H 110 H 110 H Respiratory Rate 20 Blood Pressure Pulse Oximetry 94 Oxygen Delivery Nasal Cannula Oxygen Flow Rate 2 10/28/22 21:28 10/28/22 22:15 10/28/22 20:00 Temperature 36.5 C Pulse Rate 113 H 126 H 118 H Respiratory Rate 20 20 Blood Pressure 119/64 Pulse Oximetry 98 Oxygen Delivery Oxygen Flow Rate 10/29/22 00:00 10/29/22 04:00 10/29/22 06:00 Temperature 36.9 C Pulse Rate 80 81 90 Respiratory Rate 20 Blood Pressure 125/74 Pulse Oximetry 99 Oxygen Delivery Oxygen Flow Rate 10/29/22 08:33 10/29/22 08:58 10/29/22 09:39 Temperature Pulse Rate 112 H 112 H 94 Respiratory Rate 20 Blood Pressure Pulse Oximetry 94 Oxygen Delivery Nasal Cannula Oxygen Flow Rate 2 10/29/22 08:00 Temperature Pulse Rate 84 Respiratory Rate Blood Pressure Pulse Oximetry Oxygen Delivery Oxygen Flow Rate Intake/Output Intake/Output: Intake & Output 10/26/22 10/27/22 10/28/22 10/29/22 23:59 23:59 23:59 23:59 Intake Total 1710 1466 1610 880 Balance 1710 1466 1610 880 Meds/Results Medications: Active Medications Generic Name Dose Route Start Last Admin Trade Name Freq PRN Reason Stop Dose Admin Acetaminophen 500 mg 10/24/22 10:26 10/29/22 05:00 Acetaminophen 500 Mg Tablet PO 500 mg TID PRN Administration Pain Diltiazem HCl 180 mg 10/27/22 09:00 10/29/22 09:39 Diltiazem Hcl Cd 180 Mg Cap.Er.24h PO 180 mg QAM ANIYA Administration Ergocalciferol 50,000 units 10/25/22 09:00
--- NOTE | 2022-10-29 15:39 | PM.IMPN ---
Progress Note: A&P Assessment and Plan (1) Atrial flutter: Code(s): I48.92 - Unspecified atrial flutter Status: Acute (2) Vertigo: Code(s): R42 - Dizziness and giddiness Status: Acute Assessment and Plan: presented with dizziness and right ear pain . Was irrigated in the ED . Right ear examination reveal impacted wax. Will order Debrox and will likely need ear lavage. Will continue Flonase nasal spray as well as [place] nasal spray most likely secondary to infection and ear symptoms have improved CT head with no significant abnormality seen dizzness with assocaited double vision, binocular, concern for stroke. MRI brain obtained which was negative for acute stroke (3) Atrial fibrillation with RVR: Code(s): I48.91 - Unspecified atrial fibrillation Status: Acute Assessment and Plan: intermittently go into AFib with RVR. Currently already on sotalol and Cardizem Xarelto for stroke prophylaxis Will replace magnesium back to sinus spontaneously, however went into afib with rvr again. started on flecainide per cardiology Remains in sinus rhythm since 10/28/2022 evening (4) Tobacco abuse: Code(s): Z72.0 - Tobacco use Status: Acute Assessment and Plan: patient does not smoke currently (5) Protein calorie malnutrition: Code(s): E46 - Unspecified protein-calorie malnutrition Status: Acute Assessment and Plan: boring machine operator production to follow (6) Hypotension: Code(s): I95.9 - Hypotension, unspecified Status: Acute Assessment and Plan: patient hypotensive on arrival to the ED on . This is now resolved. Plan chronic hypoxic respiratory failure underlying severe COPD. Oxygen supplementation via nasal cannula.Intermittent hypoxia last admission. Continue on bronchodilators Xavi Gaytan follows with Pulmonary as an outpatient basis. Chest x-ray on admission with hazy left upper lobe airspace disease correlate for pneumonia. Probable underlying left upper lobe scarring versus additional pneumonia. 8 mm pulmonary nodule Hypertension Anxiety disorder Subjective Date/time seen: 10/29/22 15:39 Interval history: Remains in sinus rhythm since last night. No new complaints. MRI report was reviewed with the patient. Shortness of breath stable. Review of Systems Review of Systems: All systems reviewed & are unremarkable except as noted in HPI and below Exam Narrative: General: chronically ill and malnourished Patient is comfortable, NAD HEENT: eyes are clear and none icteric LUNGS: bilateral poor air with harsh breath sounds HEART: irregularly irregular, tachycardic, afib on telemetry ABD: not distended, soft, nontender Lower extremities: no edema cyanosis or clubbing SKIN: nonjaundiced Neuro: grossly intact. Objective Data Vital Signs Vital Signs: Vital Signs - 24 hr 10/28/22 16:33 10/28/22 20:52 10/28/22 21:19 Temperature Pulse Rate 147 H 122 H 110 H Respiratory Rate 20 Blood Pressure Pulse Oximetry Oxygen Delivery Oxygen Flow Rate 10/28/22 21:22 10/28/22 21:28 10/28/22 22:15 Temperature 97.7 F Pulse Rate 110 H 113 H 126 H Respiratory Rate 20 20 Blood Pressure 119/64 Pulse Oximetry 94 98 Oxygen Delivery Nasal Cannula Oxygen Flow Rate 2 10/28/22 20:00 10/29/22 00:00 10/29/22 04:00 Temperature Pulse Rate 118 H 80 81 Respiratory Rate Blood Pressure Pulse Oximetry Oxygen Delivery Oxygen Flow Rate 10/29/22 06:00 10/29/22 08:33 10/29/22 08:58 Temperature 98.4 F Pulse Rate 90 112 H 112 H Respiratory Rate 20 20 Blood Pressure 125/74 Pulse Oximetry 99 94 Oxygen Delivery Nasal Cannula Oxygen Flow Rate 2 10/29/22 09:39 10/29/22 08:00 10/29/22 12:00 Temperature Pulse Rate 94 84 100 Respiratory Rate Blood Pressure Pulse Oximetry Oxygen Delivery Oxygen Flow Rate 10/29/22 13:40
[2022-10-29 16:06] LABS: Glucose Point of Care 135 mg/dl (65-105)
[2022-10-29] MEDS: RIVAROXABAN 15 MG TABLET PO (18:12)
[2022-10-29] MEDS: PRAVASTATIN SODIUM 20 MG TABLET PO (20:55)
[2022-10-30] VITALS (17 sets, daily range): BP systolic 118–137; BP diastolic 62–66; PULSE 86–110; RESP 17–20; TEMP 36.4–37; O2SAT 94–100
[2022-10-30 05:52] LABS: Hematocrit 34.3 % (37.0-47.0); Hemoglobin 10.6 g/dL (12.0-15.0); Mean Corpuscular HGB Conc 30.9 g/dl (32-36); Mean Corpuscular Hemoglobin 28.8 pg (26-34); Mean Corpuscular Volume 93.2 fl (80-100); Mean Platelet Volume 9.8 fl (7.4-10.4); Platelet Count Result 322 k/mm3 (150-375); Red Blood Count 3.68 M/mm3 (4.2-5.4); White Blood Count 14.1 K/mm3 (4.5-10.0)
[2022-10-30 06:04] LABS: Anion Gap 4 mmol/L (8-16); Blood Urea Nitrogen 15 mg/dL (7-17); Carbon Dioxide 31 mmol/L (22-30); Chloride 99 mmol/L (98-107); Estimated CRCL calculation 48 ml/min; Estimated Glomerular Filt Rate > 60; Glucose 113 mg/dL (65-110); Magnesium 1.7 mg/dL (1.6-2.3); Potassium 4.1 mmol/L (3.4-5.0); Sodium 134 mmol/L (137-145)
[2022-10-30] MEDS: dilTIAZem HCL CD 180 MG CAP.ER.24H PO (08:12)
[2022-10-30] MEDS: MIRABEGRON 25 MG ER TABLET PO (08:12)
[2022-10-30] MEDS: ESCITALOPRAM OXALATE 5 MG TABLET PO (08:12)
[2022-10-30] MEDS: SPIRONOLACTONE 25 MG TABLET PO (08:12)
[2022-10-30] MEDS: MAGNESIUM OXIDE 400 MG TABLET PO (08:12)
[2022-10-30] MEDS: FLUTICASONE PROPIONATE 0.05% NA SPR 16 GM BTL (*BKC) 1 SPRAY NASAL ×2 (08:13→21:04)
[2022-10-30] MEDS: guaiFENesin 200 MG/10 ML UDC PO ×4 (08:13→21:05)
[2022-10-30] MEDS: FLECAINIDE ACETATE 100 MG TABLET PO ×2 (08:13→21:04)
[2022-10-30] MEDS: IPRATROPIUM BR 0.02% INH SOLN 0.5 MG/2.5 ML VIAL INHALATION ×2 (08:27→21:08)
[2022-10-30] MEDS: FLUTICASONE/UMECLIDIN/VILANTER 100-62.5-25 MCG ELLIPTA 1 PUFF INHALATION (08:29)
[2022-10-30] MEDS: SALINE 0.65% NAS SOLN 44 ML BTL 1 SPRAY NASAL (08:30)
--- NOTE | 2022-10-30 10:28 | PM.PNCARD ---
Progress Note: A&P Assessment and Plan (1) Atrial flutter: Code(s): I48.92 - Unspecified atrial flutter Status: Acute (2) Atrial fibrillation: Qualifiers: Atrial fibrillation type: paroxysmal Qualified Code(s): I48.0 - Paroxysmal atrial fibrillation Code(s): I48.91 - Unspecified atrial fibrillation Status: Acute Plan patient with advanced / severe chronic lung disease and on the basis of this with paroxysmal AF. She is tolerating flecainide without any problems/ no proarrhythmia and appears to be maintaining sinus rhythm. No cardiac reason she cannot be discharged today. I will see the office reaches out to her for appropriate follow-up following discharge Derek Hanks MD [facility] Subjective Date/time seen: Date of durjtrf51/26/23 10:28 Interval history: Follow-up visit in this 72-year-old lady with: Paroxysmal atrial fibrillation resulting from severe chronic lung disease. Patient is on flecainide treatment. Normal sinus rhythm on telemetry this morning. Dosage of flecainide was increased yesterday as she was in atrial fibrillation for a period of time yesterday. She is resting comfortably in bed reading a book in visiting with her 10/30/2022: Patient is relatively comfortable continues in sinus rhythm on telemetry. No evidence of AF for the last 36-48 hours Exam Const: General: comfortable and no acute distress Other: very thin cachectic appearing white female pleasant and cooperative HENMT: Mouth: Yes moist mucous membranes Eyes: General: appearance normal, both eyes and all related structures Sclera: sclerae normal Pupils: Equal, round and reactive pupils present Neck: Neck: supple and no JVD Resp: Effort & Inspection: normal respiratory effort Other: breath sounds are diminished throughout both lung [place] tubular quality no rales prolonged expiratory phase Cardio: Rate: regular rate and tachycardic Rhythm: regular rhythm and abnormal rhythm irregularly irregular GI: Auscultation: normal bowel sounds Skin: General skin exam: normal color Neuro: Cranial nerves: Yes Equal, round and reactive pupils present Speech: normal speech Other: alert and oriented x3 Extrem: General: normal to inspection Other: warm well perfused, no edema Psych: Mental Status: mental status grossly normal Affect: normal affect Objective Data Vital Signs Vital Signs: Vital Signs - 24 hr 10/29/22 12:00 10/29/22 13:40 10/29/22 14:46 Temperature 36.4 C Pulse Rate 100 90 108 H Respiratory Rate 18 20 Blood Pressure 128/67 Pulse Oximetry 93 Oxygen Delivery Oxygen Flow Rate 10/29/22 16:00 10/29/22 20:25 10/29/22 20:26 Temperature Pulse Rate 107 H 108 H 108 H Respiratory Rate 20 Blood Pressure Pulse Oximetry 95 Oxygen Delivery Nasal Cannula Oxygen Flow Rate 2 10/29/22 20:55 10/29/22 21:17 10/29/22 20:00 Temperature 36.8 C Pulse Rate 96 96 98 Respiratory Rate 20 Blood Pressure 145/74 H Pulse Oximetry 98 Oxygen Delivery Oxygen Flow Rate 10/30/22 00:00 10/30/22 04:00 10/30/22 06:00 Temperature 36.9 C Pulse Rate 98 93 96 Respiratory Rate 20 Blood Pressure 122/63 Pulse Oximetry 98 Oxygen Delivery Oxygen Flow Rate 10/30/22 08:13 10/30/22 08:29 10/30/22 08:30 Temperature Pulse Rate 102 H 110 H Respiratory Rate 20 Blood Pressure Pulse Oximetry 95 Oxygen Delivery Nasal Cannula Oxygen Flow Rate 2 10/30/22 08:36 Temperature Pulse Rate 100 Respiratory Rate 20 Blood Pressure Pulse Oximetry Oxygen Delivery Oxygen Flow Rate Intake/Output Intake/Output: Intake & Output 10/27/22 10/28/22 10/29/22 10/30/22 23:59 23:59 23:59 23:59 Intake Total 1466 1610 1640 680 Balance 1466 1610 1640 680 Meds/Results Medications: Active Medications Generic Name Dose Route Start Last Admin Trade Name Freq PRN Reason Stop Dose Admin Ac
[2022-10-30] MEDS: ACETAMINOPHEN 500 MG TABLET PO (12:17)
[2022-10-30] MEDS: CARBAMIDE PEROXIDE 6.5% OT SOLN 15 ML BTL 5 DROP EACH EAR (13:26)
--- NOTE | 2022-10-30 14:39 | PCPTNOTE ---
Attempted to see patient for physical therapy treatment; pt refused x 2 this afternoon due to dizziness.
--- NOTE | 2022-10-30 15:21 | PM.IMPN ---
Progress Note: A&P Assessment and Plan (1) Atrial flutter: Code(s): I48.92 - Unspecified atrial flutter Status: Acute (2) Vertigo: Code(s): R42 - Dizziness and giddiness Status: Acute Assessment and Plan: presented with dizziness and right ear pain . Was irrigated in the ED . Right ear examination reveal impacted wax. Will order Debrox and will likely need ear lavage. Will continue Flonase nasal spray as well as [place] nasal spray most likely secondary to infection and ear symptoms have improved CT head with no significant abnormality seen dizzness with assocaited double vision, binocular, concern for stroke. MRI brain obtained which was negative for acute stroke Ongoing dizziness possible middle ear /urinary related. Meclizine p.r.n. Treat empirically with right middle ear infection with Augmentin Ciprodex ear drops. ENT to see in a.m. (3) Atrial fibrillation with RVR: Code(s): I48.91 - Unspecified atrial fibrillation Status: Acute Assessment and Plan: intermittently go into AFib with RVR. Currently already on sotalol and Cardizem Xarelto for stroke prophylaxis Will replace magnesium back to sinus spontaneously, however went into afib with rvr again. 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 This is now resolved. Plan chronic hypoxic respiratory failure underlying severe COPD. Oxygen supplementation via nasal cannula.Intermittent hypoxia last admission. Continue on bronchodilators Xavi Gaytan follows with Pulmonary as an outpatient basis. Chest x-ray on admission with hazy left upper lobe airspace disease correlate for pneumonia. Probable underlying left upper lobe scarring versus additional pneumonia. 8 mm pulmonary nodule Hypertension Anxiety disorder Subjective Date/time seen: 10/30/22 15:21 Interval history: no overnight events. Patient continues to complain dizziness. Ear hearing is LEs. Feels full. right ear was cleaned out with the help of forceps as some dried blood on the virk tympanic membrane cloudy. Remains afebrile Review of Systems Review of Systems: All systems reviewed & are unremarkable except as noted in HPI and below Exam Narrative: General: chronically ill and malnourished Patient is comfortable, NAD HEENT: eyes are clear and none icteric Ear: Right ear tympanic membrane cloudy looking. Dried wax some the blood bloody on the virk noted LUNGS: bilateral poor air with harsh breath sounds HEART: regular rate and rhythm sinus on monitor ABD: not distended, soft, nontender Lower extremities: no edema cyanosis or clubbing SKIN: nonjaundiced Neuro: grossly intact. Objective Data Vital Signs Vital Signs: Vital Signs - 24 hr 10/29/22 16:00 10/29/22 20:25 10/29/22 20:26 Temperature Pulse Rate 107 H 108 H 108 H Respiratory Rate 20 Blood Pressure Pulse Oximetry 95 Oxygen Delivery Nasal Cannula Oxygen Flow Rate 2 10/29/22 20:55 10/29/22 21:17 10/29/22 20:00 Temperature 98.2 F Pulse Rate 96 96 98 Respiratory Rate 20 Blood Pressure 145/74 H Pulse Oximetry 98 Oxygen Delivery Oxygen Flow Rate 10/30/22 00:00 10/30/22 04:00 10/30/22 06:00 Temperature 98.4 F Pulse Rate 98 93 96 Respiratory Rate 20 Blood Pressure 122/63 Pulse Oximetry 98 Oxygen Delivery Oxygen Flow Rate 10/30/22 08:13 10/30/22 08:29 10/30/22 08:30 Temperature
[2022-10-30] MEDS: AMOXICILLIN/CLAVULANATE K 875-125 MG TAB 1 TABLET PO ×2 (16:52→21:04)
[2022-10-30] MEDS: CIPROFLOXACIN HC OTIC 10 ML 3 DROP EACH EAR ×2 (16:53→21:04)
[2022-10-30] MEDS: RIVAROXABAN 15 MG TABLET PO (17:35)
[2022-10-30] MEDS: PRAVASTATIN SODIUM 20 MG TABLET PO (21:07)
[2022-10-31] VITALS (16 sets, daily range): BP systolic 122–131; BP diastolic 60–68; PULSE 90–104; RESP 18–22; TEMP 36.2–36.8; O2SAT 95–97
[2022-10-31 05:43] LABS: Hematocrit 34.4 % (37.0-47.0); Hemoglobin 10.6 g/dL (12.0-15.0); Mean Corpuscular HGB Conc 30.8 g/dl (32-36); Mean Corpuscular Hemoglobin 29.4 pg (26-34); Mean Corpuscular Volume 95.6 fl (80-100); Mean Platelet Volume 9.6 fl (7.4-10.4); Platelet Count Result 322 k/mm3 (150-375); Red Cell Distribution Width 13.3 % (11.5-14.5); White Blood Count 13.5 K/mm3 (4.5-10.0)
[2022-10-31 06:02] LABS: Anion Gap 4 mmol/L (8-16); Blood Urea Nitrogen 14 mg/dL (7-17); Carbon Dioxide 30 mmol/L (22-30); Chloride 99 mmol/L (98-107); Estimated CRCL calculation 42 ml/min; Estimated Glomerular Filt Rate > 60; Glucose 101 mg/dL (65-110); Magnesium 1.8 mg/dL (1.6-2.3); Sodium 133 mmol/L (137-145)
[2022-10-31] MEDS: CARBAMIDE PEROXIDE 6.5% OT SOLN 15 ML BTL 5 DROP EACH EAR ×2 (08:20→17:15)
[2022-10-31] MEDS: AMOXICILLIN/CLAVULANATE K 875-125 MG TAB 1 TABLET PO ×2 (08:21→21:05)
[2022-10-31] MEDS: FLECAINIDE ACETATE 100 MG TABLET PO ×2 (08:22→21:05)
[2022-10-31] MEDS: ESCITALOPRAM OXALATE 5 MG TABLET PO (08:22)
[2022-10-31] MEDS: dilTIAZem HCL CD 180 MG CAP.ER.24H PO (08:22)
[2022-10-31] MEDS: guaiFENesin 200 MG/10 ML UDC PO ×4 (08:23→21:05)
[2022-10-31] MEDS: MAGNESIUM OXIDE 400 MG TABLET PO (08:23)
--- NOTE | 2022-10-31 08:36 | PM.PNCARD ---
Progress Note: A&P Assessment and Plan (1) Atrial flutter: Code(s): I48.92 - Unspecified atrial flutter <DAMIR Cárdenas - Last Filed: 10/31/22 09:47> Status: Acute <DAMIR Cárdenas - Last Filed: 10/31/22 09:47> (2) Atrial fibrillation: Qualifiers: Atrial fibrillation type: paroxysmal Qualified Code(s): I48.0 - Paroxysmal atrial fibrillation <DAMIR Cárdenas - Last Filed: 10/31/22 09:47> Code(s): I48.91 - Unspecified atrial fibrillation <DAMIR Cárdenas - Last Filed: 10/31/22 09:47> Status: Acute <DAMIR Cárdenas - Last Filed: 10/31/22 09:47> Assessment and Plan: History of paroxysmal atrial fibrillation. She encountered AF with RVR during this hospitalization in the setting of COPD exacerbation. She is being treated with flecainide and diltiazem and is maintaining sinus rhythm at this point. For some reason her telemetry history is not available on the monitor for review but previous documentation indicates she has not experienced any proarrhythmic effects of the flecainide therapy. She is on Xarelto for anticoagulation. She had previously followed with a transport rn at [place] but indicates that she would like to follow with our practice. I will arrange for outpatient follow up. Cardiology will sign off, please do not hesitate to contact us with any questions. <DAMIR Cárdenas - Last Filed: 10/31/22 09:47> Assessment and Plan: patient with advanced / severe chronic lung disease and on the basis of this with paroxysmal AF. She is tolerating flecainide without any problems/ no proarrhythmia and appears to be maintaining sinus rhythm. No cardiac reason she cannot be discharged today. I will see the office reaches out to her for appropriate follow-up following discharge Derek Hanks MD [facility] <DAMIR Cárdenas - Last Filed: 10/31/22 09:47> Attending addendum: I agree with the above documentation and plan of care as outlined. <Ken Woo MD - Last Filed: 10/31/22 13:47> Subjective Date/time seen: 10/31/22 08:36 Cardiology follow up for atrial fibrillation Feeling well this morning. She remains in sinus rhythm on flecainide. No palpitations or chest pain. Her shortness of breath is improving. Still complaining of intermittent dizziness. <DAMIR Cárdenas - Last Filed: 10/31/22 09:47> Review of Systems Constitutional: Constitutional: Reports lethargy <DAMIR Cárdenas - Last Filed: 10/31/22 09:47> Eyes: Eyes: Reports no additional eye complaints <DAMIR Cárdenas - Last Filed: 10/31/22 09:47> ENT: Reports system reviewed and no additional complaints, except as documented <DAMIR Cárdenas - Last Filed: 10/31/22 09:47> Cardiovascular: Cardiovascular: Reports palpitations and Reports dyspnea <DAMIR Cárdenas - Last Filed: 10/31/22 09:47> Respiratory: Respiratory: Reports dyspnea <DAMIR Cárdenas - Last Filed: 10/31/22 09:47> Gastrointestinal: Gastrointestinal: Reports no additional gastrointestinal complaints <DAMIR Cárdenas - Last Filed: 10/31/22 09:47> Musculoskeletal: Musculoskeletal: Reports no additional musculoskeletal complaints <DAMIR Cárdenas - Last Filed: 10/31/22 09:47> Integumentary/Breasts: Skin/Breast: Reports system reviewed and no additional complaints, except as docu <DAMIR Cárdenas - Last Filed: 10/31/22 09:47> Endocrine: Endocrine: Reports no additional endocrine complaints and Reports palpitations <DAMIR Cárdenas - Last Filed: 10/31/22 09:47> Hematologic/Lymphatic: Hematologic/Lymphatic: Reports no additional hematologic/lymphatic complaints <DAMIR Cárdenas - Last Filed: 10/31/22 09:47> Allergic/Immunologic: Allergic/Immunologic: Reports no additional allergic/immunologic complaints <[place] APN-Jackelyn - Last Filed: 10/31/22 09:47> Exam Const: General: comfortable
[2022-10-31] MEDS: SPIRONOLACTONE 25 MG TABLET PO (09:08)
[2022-10-31] MEDS: CIPROFLOXACIN HC OTIC 10 ML 3 DROP EACH EAR ×2 (09:08→21:05)
[2022-10-31] MEDS: FLUTICASONE/UMECLIDIN/VILANTER 100-62.5-25 MCG ELLIPTA 1 PUFF INHALATION (09:29)
[2022-10-31] MEDS: IPRATROPIUM BR 0.02% INH SOLN 0.5 MG/2.5 ML VIAL INHALATION ×2 (09:29→20:01)
--- NOTE | 2022-10-31 11:50 | PCPTNOTE ---
Patient refused treatment this session due to patient still feeling dizzy.
--- NOTE | 2022-10-31 12:06 | PM.IMPN ---
Progress Note: A&P Assessment and Plan (1) Atrial flutter: Code(s): I48.92 - Unspecified atrial flutter Status: Acute (2) Vertigo: Code(s): R42 - Dizziness and giddiness Status: Acute Assessment and Plan: presented with dizziness and right ear pain . Was irrigated in the ED . Right ear examination reveal impacted wax. Will order Debrox and will likely need ear lavage. Will continue Flonase nasal spray as well as [place] nasal spray most likely secondary to infection and ear symptoms have improved CT head with no significant abnormality seen dizzness with assocaited double vision, binocular, concern for stroke. MRI brain obtained which was negative for acute stroke Ongoing dizziness possible middle ear /urinary related. Meclizine p.r.n. Treat empirically with right middle ear infection with Augmentin Ciprodex ear drops. Awaiting ENT evaluation (3) Atrial fibrillation with RVR: Code(s): I48.91 - Unspecified atrial fibrillation Status: Acute Assessment and Plan: intermittently go into AFib with RVR. Currently already on sotalol and Cardizem Xarelto for stroke prophylaxis Will replace magnesium back to sinus spontaneously, however went into afib with rvr again. 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 This is now resolved. Plan chronic hypoxic respiratory failure underlying severe COPD. Oxygen supplementation via nasal cannula.Intermittent hypoxia last admission. Continue on bronchodilators Xavi Gaytan follows with Pulmonary as an outpatient basis. Chest x-ray on admission with hazy left upper lobe airspace disease correlate for pneumonia. Probable underlying left upper lobe scarring versus additional pneumonia. 8 mm pulmonary nodule Hypertension Anxiety disorder Subjective Date/time seen: 10/31/22 12:06 Interval history: continues to have dizziness whenever she stands up. Her right ear hearing loss persist. Breathing is stable. Telemetry reviewed. No further AFib exist . remains afebrile. Review of Systems Review of Systems: All systems reviewed & are unremarkable except as noted in HPI and below Exam Narrative: General: chronically ill and malnourished Patient is comfortable, NAD HEENT: eyes are clear and none icteric Ear: Right ear tympanic membrane cloudy looking. Dried wax some the blood bloody on the virk noted LUNGS: bilateral poor air with harsh breath sounds HEART: regular rate and rhythm sinus on monitor ABD: not distended, soft, nontender Lower extremities: no edema cyanosis or clubbing SKIN: nonjaundiced Neuro: grossly intact. Objective Data Vital Signs Vital Signs: Vital Signs - 24 hr 10/30/22 15:13 10/30/22 16:00 10/30/22 20:58 Temperature 97.6 F 98.6 F Pulse Rate 86 89 97 Respiratory Rate 18 17 Blood Pressure 118/66 137/62 Pulse Oximetry 100 97 Oxygen Delivery Oxygen Flow Rate 10/30/22 21:04 10/30/22 21:10 10/30/22 21:11 Temperature Pulse Rate 89 98 Respiratory Rate 20 Blood Pressure Pulse Oximetry 94 Oxygen Delivery Nasal Cannula Oxygen Flow Rate 2 10/30/22 21:19 10/30/22 20:00 10/31/22 00:00 Temperature Pulse Rate 105 H 94 93 Respiratory Rate 20 Blood Pressure Pulse Oximetry Oxygen Delivery Oxygen Flow Rate 10/31/22 03:44 10/31/22 04:00 10/31/22 08:22 Temperature 98.2 F Pulse Rate 93 90 101 H Respiratory Rate 18
--- NOTE | 2022-10-31 12:36 | PCNFU ---
Nutrition Follow-Up Complete: Severe malnutrition related to inadequate protein energy intake as evidenced by less than 50% oral intake of estimated needs for greater than 1 month, and visible significant subcutaneious fat loss and muscle wasting in all areas. Goal: PO intake greater than 50% of meals and supplements _ Goal is being me Pt current nutrition is Heart healthy diet. Not drinking Ensure Clear, will change to Ensure Enlive TID per patient request for additional 350 kcals and 20 g protein each. Nutrition recommendation: Modify supplement to Ensure Enlive TID Last recorded weight is 37.8 kg. Bowel Motility: Last BM +1 10/27/22 Labs Reviewed: Hgb 106, Hct 34.4, Na 133, Cre 0.6 Meds Noted: Spironolactone Skin: WNL Additional Notes: Intakes have improved to 60-85% meals consistently. Changing supplements to Ensure Enlive TID per patient request. Monitor intake, wt, labs. Follow up in 7 days.
[2022-10-31] MEDS: MIRABEGRON 25 MG ER TABLET PO (17:15)
[2022-10-31] MEDS: RIVAROXABAN 15 MG TABLET PO (17:27)
[2022-10-31] MEDS: ACETAMINOPHEN 500 MG TABLET PO (19:16)
[2022-10-31] MEDS: PROCHLORPERAZINE MALEATE 5 MG TABLET 10 MG PO (19:16)
[2022-10-31] MEDS: FLUTICASONE PROPIONATE 0.05% NA SPR 16 GM BTL (*BKC) 1 SPRAY NASAL (21:05)
[2022-10-31] MEDS: PRAVASTATIN SODIUM 20 MG TABLET PO (21:06)
[2022-10-31] MEDS: MECLIZINE HCL 25 MG TABLET PO (21:09)
[2022-11-01] VITALS (16 sets, daily range): BP systolic 126–138; BP diastolic 65–71; PULSE 88–102; RESP 18–20; TEMP 36.4–36.7; O2SAT 93–97
[2022-11-01 05:57] LABS: Hematocrit 34.3 % (37.0-47.0); Hemoglobin 10.4 g/dL (12.0-15.0); Mean Corpuscular HGB Conc 30.3 g/dl (32-36); Mean Corpuscular Hemoglobin 28.7 pg (26-34); Mean Corpuscular Volume 94.5 fl (80-100); Mean Platelet Volume 9.5 fl (7.4-10.4); Platelet Count Result 317 k/mm3 (150-375); Red Blood Count 3.63 M/mm3 (4.2-5.4); Red Cell Distribution Width 13.2 % (11.5-14.5); White Blood Count 13.7 K/mm3 (4.5-10.0)
[2022-11-01 06:07] LABS: Anion Gap 5 mmol/L (8-16); Blood Urea Nitrogen 14 mg/dL (7-17); Calcium 9.1 mg/dL (8.4-10.2); Carbon Dioxide 28 mmol/L (22-30); Chloride 97 mmol/L (98-107); Estimated CRCL calculation 40 ml/min; Estimated Glomerular Filt Rate > 60; Glucose 152 mg/dL (65-110); Magnesium 1.8 mg/dL (1.6-2.3); Potassium 4.3 mmol/L (3.4-5.0); Sodium 130 mmol/L (137-145)
[2022-11-01] MEDS: AMOXICILLIN/CLAVULANATE K 875-125 MG TAB 1 TABLET PO ×2 (08:04→21:08)
[2022-11-01] MEDS: CARBAMIDE PEROXIDE 6.5% OT SOLN 15 ML BTL 5 DROP EACH EAR (08:04)
[2022-11-01] MEDS: dilTIAZem HCL CD 180 MG CAP.ER.24H PO (08:05)
[2022-11-01] MEDS: FLECAINIDE ACETATE 100 MG TABLET PO ×2 (08:05→21:08)
[2022-11-01] MEDS: ESCITALOPRAM OXALATE 5 MG TABLET PO (08:05)
[2022-11-01] MEDS: MAGNESIUM OXIDE 400 MG TABLET PO (08:07)
[2022-11-01] MEDS: MIRABEGRON 25 MG ER TABLET PO (08:07)
[2022-11-01] MEDS: SPIRONOLACTONE 25 MG TABLET PO (08:07)
[2022-11-01] MEDS: guaiFENesin 200 MG/10 ML UDC PO ×4 (08:07→21:09)
[2022-11-01] MEDS: FLUTICASONE PROPIONATE 0.05% NA SPR 16 GM BTL (*BKC) 1 SPRAY NASAL ×2 (08:08→21:09)
[2022-11-01] MEDS: FLUTICASONE/UMECLIDIN/VILANTER 100-62.5-25 MCG ELLIPTA 1 PUFF INHALATION (09:06)
[2022-11-01] MEDS: IPRATROPIUM BR 0.02% INH SOLN 0.5 MG/2.5 ML VIAL INHALATION ×2 (09:06→14:05)
[2022-11-01] MEDS: CIPROFLOXACIN HC OTIC 10 ML 3 DROP EACH EAR (10:23)
--- NOTE | 2022-11-01 12:09 | PCOTNOTE ---
Patient refused treatment this session due to stated she is waiting for a specialized therapist to come in and give me a vertigo treatment per the doctor . I am waiting for her to come .
[2022-11-01] MEDS: ACETAMINOPHEN 500 MG TABLET PO (13:12)
--- NOTE | 2022-11-01 13:27 | PM.IMPN ---
Progress Note: A&P Assessment and Plan (1) Atrial flutter: Code(s): I48.92 - Unspecified atrial flutter Status: Acute (2) Vertigo: Code(s): R42 - Dizziness and giddiness Status: Acute Assessment and Plan: presented with dizziness and right ear pain . Was irrigated in the ED . Right ear examination reveal impacted wax. continue Flonase nasal spray as well as [place] nasal spray most likely secondary to infection and ear symptoms have improved CT head with no significant abnormality seen dizzness with assocaited double vision, binocular, concern for stroke. MRI brain obtained which was negative for acute stroke Ongoing dizziness possible middle ear /urinary related. Meclizine p.r.n. Treat empirically with right middle ear infection with Augmentin Ciprodex ear drops. Awaiting ENT evaluation (3) Atrial fibrillation with RVR: Code(s): I48.91 - Unspecified atrial fibrillation Status: Acute Assessment and Plan: intermittently go into AFib with RVR. Currently already on sotalol and Cardizem Xarelto for stroke prophylaxis Will replace magnesium back to sinus spontaneously, however went into afib with rvr again. 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 This is now resolved. Plan chronic hypoxic respiratory failure underlying severe COPD. Oxygen supplementation via nasal cannula.Intermittent hypoxia last admission. Continue on bronchodilators Xavi Gaytan follows with Pulmonary as an outpatient basis. Chest x-ray on admission with hazy left upper lobe airspace disease correlate for pneumonia. Probable underlying left upper lobe scarring versus additional pneumonia. 8 mm pulmonary nodule Hypertension Anxiety disorder Subjective Date/time seen: 11/01/22 13:27 Interval history: Patient continues to have dizziness whenever she stands up. Also intermittently reports double vision. Her right ear hearing loss persist. Breathing is stable. Telemetry reviewed. No further AFib exist . remains afebrile. Review of Systems Review of Systems: All systems reviewed & are unremarkable except as noted in HPI and below Exam Narrative: General: chronically ill and malnourished Patient is comfortable, NAD HEENT: eyes are clear and none icteric Ear: Right ear tympanic membrane cloudy looking. Dried wax some the blood bloody on the virk noted LUNGS: bilateral poor air with harsh breath sounds HEART: regular rate and rhythm sinus on monitor ABD: not distended, soft, nontender Lower extremities: no edema cyanosis or clubbing SKIN: nonjaundiced Neuro: grossly intact. Objective Data Vital Signs Vital Signs: Vital Signs - 24 hr 10/31/22 16:00 10/31/22 20:03 10/31/22 20:04 Temperature Pulse Rate 91 96 96 Respiratory Rate 20 20 Blood Pressure Pulse Oximetry 95 Oxygen Delivery Nasal Cannula Oxygen Flow Rate 2 10/31/22 20:15 10/31/22 21:04 10/31/22 21:05 Temperature 97.1 F L Pulse Rate 97 99 97 Respiratory Rate 20 18 Blood Pressure 122/60 Pulse Oximetry 97 Oxygen Delivery Oxygen Flow Rate 10/31/22 20:00 10/31/22 20:00 11/01/22 03:50 Temperature 98.0 F Pulse Rate 95 93 Respiratory Rate 18 Blood Pressure 127/71 Pulse Oximetry 97 96 Oxygen Delivery Nasal Cannula Oxygen Flow Rate 2 11/01/22 04:00 11/01/22 08:05 11/01/22 09:06 Temperature Pulse Rate 92 97 91 Respiratory Rate
[2022-11-01 16:43] LABS: Appearance Urine Cloudy (Clear); Bilirubin Urine Negative (Negative); Blood Urine 3+ (Negative); Glucose Urine UA Negative (Negative); Ketones Urine Negative (Negative); Leukocyte Esterase Ur 3+ LEU/UL (NEGATIVE); Nitrate Urine Positive (Negative); Protein Urine 2+ mg/dL (Negative); Specific Grav Ur 1.025 (1.001-1.035); Urobilinogen Urine 0.2 mg/dL (<2.0)
[2022-11-01 16:46] LABS: Bacteria Urine 2+ /hpf; RBC Urine >75 /hpf (0-2); WBC Urine >75 /hpf (0-3)
[2022-11-01 16:47] LABS: Add Urine Microscopic? YES; Color Urine Dark Yellow (Yellow)
--- NOTE | 2022-11-01 17:02 | WPDCN ---
Assessment and Plan Assessment and plan (1) Vertigo: Code(s): R42 - Dizziness and giddiness Status: Acute Assessment and Plan: for the vertigo could represent a vestibular neuritis, could consider course of steroids to see if this helps. If vestibular neuritis will likely resolve over the next several weeks to months as well. Given that it is almost completely positional when the patient stands could also represent a carotid artery pathology or cardiac pathology. Could consider carotid ultrasound. For the nose I recommend mupirocin t.i.d. patient should use her finger get way in there. Drops for the ears you could continue on the right side until follow-up with me just to remove the crusting. Ears look good otherwise. Stopping drops on the left side. Please have the patient follow up with me within several weeks following discharge. (2) Nasal folliculitis: Code(s): L73.9 - Follicular disorder, unspecified Status: Acute (3) Otitis externa of right ear: Code(s): H60.91 - Unspecified otitis externa, right ear Status: Acute HPI Data of Consult Date/Time: 11/01/22 17:02 Requesting Physician: Maritza Bueno DO Primary Care Provider: Estella Allen, TAXI PROPRIETOR Consult Narrative Narrative: Sofi Zeng is a 72 year old female With a history of vertigo room spinning when sitting upright or standing. Now with specific movements otherwise. Cardiac history AFib. Cardiology is recently seen. No carotid ultrasound that I can see. No recent URI. No change in hearing. Some right aural fullness. MRI and CT reviewed scant mastoid effusion bilaterally on the MRI CT looks okay. Nasal crusting Review of Systems Review of Systems: All systems reviewed & are unremarkable except as noted in HPI and below PMFSH Past Medical History Medical History Atrial fibrillation COPD (chronic obstructive pulmonary disease) PFT 11/02/2021: Severe obstructive airway disease with air trapping, lung hyperinflation and significant response to bronchodilators. Severely reduced diffusion capacity Glaucoma Hypercholesterolemia Hypertension Kidney stones Polycythemia secondary to hypoxia Pulmonary nodule 7 mm left lower lobe nodule increased in size compared to prior exam 2016 with recommended follow-up CT scan in March-April Patient stated she had a PET scan which was negative. She stated she was told that it was granulomatosis Surgical History Surgical History H/O cystoscopy History of 2 sections History of extraction of renal calculus Family History Family History Father Acute myocardial infarction Hypertension Mother Chronic obstructive pulmonary disease Sibling Chronic obstructive pulmonary disease Hypertension Pulmonary hypertension Social History Social History Social History: She reports that her daughter and 2 grand children recently moved in with her. 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 She denies any significant alcohol use or illicit substance use. Code status: Full code Surrogate decision maker: Dinaa (daughter) Smoking packs per day: 1 Smoking cigarettes per day: 20.0 Years smoked: 45 Smoking pack-years: 45.00 Smoking status: Former smoker Tobacco type: cigarettes Second hand tobacco smoke exposure: Yes Smoking end date: 08/29/22 Alcohol intake: never Substance use: never Substance use type: does not use Lack of Transportation: No Lack of Food: Never True Current Housing: I Have Housing Concerned About Future Housing: No Difficulty Paying Gas/Electric Bills: YES Difficulty Paying for Meds: No Currently Unemployed: No Education: Trade/Voc
[2022-11-01] MEDS: RIVAROXABAN 15 MG TABLET PO (18:01)
[2022-11-01] MEDS: CARBAMIDE PEROXIDE 6.5% OT SOLN 15 ML BTL 5 DROP RIGHT EAR (18:02)
[2022-11-01] MEDS: MUPIROCIN 2% OINT 22 GM TUBE 1 APPLIC EACH NARE (18:03)
[2022-11-01] MEDS: PRAVASTATIN SODIUM 20 MG TABLET PO (21:08)
[2022-11-01] MEDS: CIPROFLOXACIN HC OTIC 10 ML 3 DROP RIGHT EAR (21:08)
[2022-11-02] VITALS (16 sets, daily range): BP systolic 136–138; BP diastolic 63–67; PULSE 85–97; RESP 16–18; TEMP 36.3–36.6; O2SAT 94–98
[2022-11-02 05:16] LABS: Hematocrit 34.3 % (37.0-47.0); Hemoglobin 10.6 g/dL (12.0-15.0); Mean Corpuscular HGB Conc 30.9 g/dl (32-36); Mean Corpuscular Hemoglobin 28.6 pg (26-34); Mean Corpuscular Volume 92.5 fl (80-100); Mean Platelet Volume 9.3 fl (7.4-10.4); Platelet Count Result 325 k/mm3 (150-375); Red Blood Count 3.71 M/mm3 (4.2-5.4); Red Cell Distribution Width 13.2 % (11.5-14.5); White Blood Count 12.6 K/mm3 (4.5-10.0)
[2022-11-02 05:17] LABS: Anion Gap 7 mmol/L (8-16); Blood Urea Nitrogen 17 mg/dL (7-17); Calcium 9.4 mg/dL (8.4-10.2); Carbon Dioxide 29 mmol/L (22-30); Chloride 100 mmol/L (98-107); Estimated CRCL calculation 42 ml/min; Estimated Glomerular Filt Rate > 60; Glucose 163 mg/dL (65-110); Magnesium 1.9 mg/dL (1.6-2.3); Potassium 4.2 mmol/L (3.4-5.0); Sodium 136 mmol/L (137-145)
[2022-11-02] MEDS: FLUTICASONE/UMECLIDIN/VILANTER 100-62.5-25 MCG ELLIPTA 1 PUFF INHALATION (09:44)
--- NOTE | 2022-11-02 09:46 | PCRCNOTE ---
Pt refused 0800 neb tx, DPI was given. RN informed.
[2022-11-02] MEDS: MIRABEGRON 25 MG ER TABLET PO (09:59)
[2022-11-02] MEDS: SPIRONOLACTONE 25 MG TABLET PO (10:00)
[2022-11-02] MEDS: FLECAINIDE ACETATE 100 MG TABLET PO ×2 (10:00→20:41)
[2022-11-02] MEDS: AMOXICILLIN/CLAVULANATE K 875-125 MG TAB 1 TABLET PO ×2 (10:01→20:41)
[2022-11-02] MEDS: dilTIAZem HCL CD 180 MG CAP.ER.24H PO (10:01)
[2022-11-02] MEDS: ESCITALOPRAM OXALATE 5 MG TABLET PO (10:01)
[2022-11-02] MEDS: MAGNESIUM OXIDE 400 MG TABLET PO (10:01)
[2022-11-02] MEDS: CARBAMIDE PEROXIDE 6.5% OT SOLN 15 ML BTL 5 DROP RIGHT EAR ×2 (10:02→17:18)
[2022-11-02] MEDS: CIPROFLOXACIN HC OTIC 10 ML 3 DROP RIGHT EAR ×2 (10:02→20:41)
[2022-11-02] MEDS: guaiFENesin 200 MG/10 ML UDC PO ×4 (10:02→20:41)
[2022-11-02] MEDS: FLUTICASONE PROPIONATE 0.05% NA SPR 16 GM BTL (*BKC) 1 SPRAY NASAL ×2 (10:03→20:42)
[2022-11-02] MEDS: MUPIROCIN 2% OINT 22 GM TUBE 1 APPLIC EACH NARE ×3 (10:03→17:19)
[2022-11-02] MEDS: polyethylene glycoL 3350 17 GM POWD.PACK PO (10:03)
--- NOTE | 2022-11-02 12:12 | PM.IMPN ---
Progress Note: A&P Assessment and Plan (1) Otitis externa of right ear: Code(s): H60.91 - Unspecified otitis externa, right ear Status: Acute (2) Nasal folliculitis: Code(s): L73.9 - Follicular disorder, unspecified Status: Acute (3) Vertigo: Code(s): R42 - Dizziness and giddiness Status: Acute (4) Protein calorie malnutrition: Code(s): E46 - Unspecified protein-calorie malnutrition Status: Acute (5) Atrial flutter: Code(s): I48.92 - Unspecified atrial flutter Status: Acute (6) Atrial fibrillation with RVR: Code(s): I48.91 - Unspecified atrial fibrillation Status: Acute (7) Tobacco abuse: Code(s): Z72.0 - Tobacco use Status: Acute (8) UTI (urinary tract infection): Code(s): N39.0 - Urinary tract infection, site not specified Status: Acute Plan 72 years old F with PMH of smoking, COPD presented with dizziness, right ear pain.Was also in Afibb with RVR inER requiring Cardizem drip. 1)Right Otitis Externa: Appreciate ENT help Right ear wax irrigated in ER Will need to follow up with ENT upon discharge c/w ear drops for now(cipro) Also on Augmentin for 5 days 2)Nasal Folliculitis: c/w Mupirocin 3)Dizziness/Vertigo: Stroke work up has been negative ?Related to ear infection ?Vestibular neuritis c/w meclizine PRN 4)UTI: c/w ceftriaxone, Await urine culture Renal USG ? concern for renal mass Await Urology consult 5)Afibb: Appreciate Cardiology help c/w Flecanise, Cardizem Xarelto 6)Protein Calorie Malnutrition: Encourage PO intake Dietary supplements 7)DVT ppx: On Xarelto 8)Amparo:Full 9)Dispo:pending improvement Time Spent With Patient Time with patient: 25 - 35 minutes Subjective Date/time seen: 11/02/22 12:12 Interval history: no acute events overnight, denies dizziness Review of Systems Review of Systems: All systems reviewed & are unremarkable except as noted in HPI and below Exam Narrative: ? General: chronically ill and malnourished Patient is comfortable, NAD HEENT: eyes are clear and none icteric Ear:? Right ear tympanic membrane cloudy looking.? LUNGS: bilateral poor air with harsh breath sounds HEART:? regular rate and rhythm? sinus on monitor ABD:? not distended, soft, nontender Lower extremities: no edema? cyanosis or clubbing SKIN: nonjaundiced Neuro: grossly intact. Objective Data Vital Signs Vital Signs: Vital Signs - 24 hr 11/01/22 14:05 11/01/22 14:14 11/01/22 14:00 Temperature 97.6 F Pulse Rate 93 102 H Respiratory Rate 20 20 18 Blood Pressure 138/70 Pulse Oximetry 93 Oxygen Delivery Oxygen Flow Rate 11/01/22 16:01 11/01/22 19:20 11/01/22 20:58 Temperature 97.9 F Pulse Rate 93 93 95 Respiratory Rate 20 18 Blood Pressure 126/65 Pulse Oximetry 94 97 Oxygen Delivery Nasal Cannula Oxygen Flow Rate 2 11/01/22 21:08 11/01/22 20:00 11/01/22 20:00 Temperature Pulse Rate 97 97 99 Respiratory Rate 18 Blood Pressure Pulse Oximetry 97 Oxygen Delivery Nasal Cannula Oxygen Flow Rate 2 11/02/22 00:00 11/02/22 04:25 11/02/22 04:00 Temperature 97.4 F L Pulse Rate 87 91 88 Respiratory Rate 18 Blood Pressure 136/67 Pulse Oximetry 95 Oxygen Delivery Oxygen Flow Rate 11/02/22 08:00 11/02/22 09:46 11/02/22 10:00 Temperature Pulse Rate 96 96 Respiratory Rate Blood Pressure Pulse Oximetry 94 Oxygen Delivery Nasal Cannula Oxygen Flow Rate 2 11/02/22 10:00 11/02/22 11:00 Temperature Pulse Rate 92 Respiratory Rate Blood Pressure Pulse Oximetry 96 96 Oxygen Delivery Nasal Cannula Nasal Cannula Oxygen Flow Rate 2 2 Intake/Output Intake/Output: Intake & Output 10/30/22 10/31/22 11/01/22 11/02/22 23:59 23:59 23:59 23:59 Intake Total 1160 1520 1570 770 Output Total 200 Balance 1160 1520 1370 770 Meds/Results Medications: Active Medications
--- NOTE | 2022-11-02 13:43 | PC.NURSE ---
On 11/02/22, the student, [Caro Dickerson], provided care and completed [facility] documentation on this patient. I have reviewed the student's documentation and agree with the findings.
[2022-11-02] MEDS: IPRATROPIUM BR 0.02% INH SOLN 0.5 MG/2.5 ML VIAL INHALATION (14:45)
--- NOTE | 2022-11-02 16:05 | WPDURCON ---
Assessment and Plan Assessment and plan (1) UTI (urinary tract infection): Code(s): N39.0 - Urinary tract infection, site not specified Status: Acute Assessment and Plan: Continue IV antibiotics, tailor to culture results. (2) Bladder mass: Code(s): N32.89 - Other specified disorders of bladder Status: Acute Assessment and Plan: Get a CT Abdomen and Pelvis with and without contrast to further evaluate. We will then plan to get a cystoscopy in the office once infection has resolved if a bladder mass is evident. Urology Consult Note HPI Date Seen: 11/02/22 Time Seen: 12:30 Requesting Physician: Maritza Bueno DO Primary Care Provider: Estella Allen, PLATFORM SUPERVISOR Consult Narrative Reason for consult: Bladder Mass Narrative: Sofi Zeng is a 72 year old female who was admitted for A-Flutter following a visit to the ER for acute onset of dizziness and difficulty hearing from the right ear for the past week. WBC is 12.6, creatinine 0.60, UA is suggestive of a UTI, cutlure is pending. She is c/o dysuria, urgency and frequency of urination as well. A LARS was done showing bilateral renal stones and a possible bladder mass. The patient is aware of her stones but not her bladder mass. She states she had a cystoscopy about 1.5 years ago but was not told she had a mass at that time. She did have a cystoscopy per our records with Dr. Eli in 06/2020 and it was normal at that time. Review of Systems Respiratory: Respiratory: Reports no additional respiratory complaints Gastrointestinal: Gastrointestinal: Denies abdominal pain, Denies nausea and Denies vomiting Genitourinary: Genitourinary: Denies hematuria, Reports nocturia, Reports dysuria, Denies flank pain, Denies urinary incontinence, Denies urinary hesitancy and Reports urinary urgency [facility] Past Medical History Medical History Atrial fibrillation COPD (chronic obstructive pulmonary disease) PFT 11/02/2021: Severe obstructive airway disease with air trapping, lung hyperinflation and significant response to bronchodilators. Severely reduced diffusion capacity Glaucoma Hypercholesterolemia Hypertension Kidney stones Polycythemia secondary to hypoxia Pulmonary nodule 7 mm left lower lobe nodule increased in size compared to prior exam 2016 with recommended follow-up CT scan in March-April Patient stated she had a PET scan which was negative. She stated she was told that it was granulomatosis Surgical History Surgical History H/O cystoscopy History of 2 sections History of extraction of renal calculus Family History Family History Father Acute myocardial infarction Hypertension Mother Chronic obstructive pulmonary disease Sibling Chronic obstructive pulmonary disease Hypertension Pulmonary hypertension Social History Social History Social History: She reports that her daughter and 2 grand children recently moved in with her. 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 She denies any significant alcohol use or illicit substance use. Code status: Full code Surrogate decision maker: Diana (daughter) Smoking packs per day: 1 Smoking cigarettes per day: 20.0 Years smoked: 45 Smoking pack-years: 45.00 Smoking status: Former smoker Tobacco type: cigarettes Second hand tobacco smoke exposure: Yes Smoking end date: 08/29/22 Alcohol intake: never Substance use: never Substance use type: does not use Lack of Transportation: No Lack of Food: Never True Current Housing: I Have Housing Concerned About Future Housing: No Difficulty Paying Gas/Electric Bills: YES Difficulty Paying for Meds: No Currently Unemployed: No Education
[2022-11-02] MEDS: RIVAROXABAN 15 MG TABLET PO (17:19)
[2022-11-02] MEDS: PRAVASTATIN SODIUM 20 MG TABLET PO (20:41)
--- NOTE | 2022-11-02 21:16 | PCRCNOTE ---
pt refusing 2000 UPD stating she does not need one tonight. RT listened to pt and heard clear/diminished breath sounds. HR and 02 are within normal limits. RT advised pt to call if she is in need of UPD. RN notified.
[2022-11-03] VITALS (16 sets, daily range): BP systolic 116–139; BP diastolic 70–73; PULSE 89–105; RESP 17–18; TEMP 36.3–37.1; O2SAT 92–97
[2022-11-03 05:55] LABS: Basophils Absolute Auto 0.1 K/mm3 (0.0-0.1); Basophils Percent Auto 0.4 % (0.2-1.2); Eosinophils Absolute Auto 0.1 K/mm3 (0-0.3); Eosinophils Percent Auto 0.9 % (0-4.4); Hematocrit 33.6 % (37.0-47.0); Hemoglobin 10.6 g/dL (12.0-15.0); Immature Granulocyte Absolute 0.06 K/mm3 (0.00-0.031); Immature Granulocyte Percent A 0.5 % (0-0.5); Lymphocytes Absolute Auto 1.36 K/mm3 (0.9-3.2); Lymphocytes Percent Auto 12.1 % (18.3-44.2); Mean Corpuscular HGB Conc 31.5 g/dl (32-36); Mean Corpuscular Hemoglobin 29.3 pg (26-34); Mean Corpuscular Volume 92.8 fl (80-100); Mean Platelet Volume 9.5 fl (7.4-10.4); Monocytes Absolute Auto 0.9 K/mm3 (0.1-0.6); Monocytes Percent Auto 8.1 % (2.6-8.5); Neutrophils Absolute Auto 8.8 K/mm3 (1.3-6.7); Platelet Count Result 341 k/mm3 (150-375); Red Blood Count 3.62 M/mm3 (4.2-5.4); Red Cell Distribution Width 13.1 % (11.5-14.5); White Blood Count 11.3 K/mm3 (4.5-10.0)
[2022-11-03 06:03] LABS: Anion Gap 6 mmol/L (8-16); Blood Urea Nitrogen 20 mg/dL (7-17); Carbon Dioxide 27 mmol/L (22-30); Chloride 98 mmol/L (98-107); Estimated CRCL calculation 32 ml/min; Estimated Glomerular Filt Rate > 60; Glucose 137 mg/dL (65-110); Potassium 4.5 mmol/L (3.4-5.0); Sodium 131 mmol/L (137-145)
[2022-11-03] MEDS: FLUTICASONE/UMECLIDIN/VILANTER 100-62.5-25 MCG ELLIPTA 1 PUFF INHALATION (07:58)
[2022-11-03] MEDS: IPRATROPIUM BR 0.02% INH SOLN 0.5 MG/2.5 ML VIAL INHALATION ×2 (07:58→13:38)
[2022-11-03] MEDS: AMOXICILLIN/CLAVULANATE K 875-125 MG TAB 1 TABLET PO ×2 (09:15→21:01)
[2022-11-03] MEDS: dilTIAZem HCL CD 180 MG CAP.ER.24H PO (09:16)
[2022-11-03] MEDS: FLECAINIDE ACETATE 100 MG TABLET PO ×2 (09:16→21:01)
[2022-11-03] MEDS: ESCITALOPRAM OXALATE 5 MG TABLET PO (09:16)
[2022-11-03] MEDS: FLUTICASONE PROPIONATE 0.05% NA SPR 16 GM BTL (*BKC) 1 SPRAY NASAL ×2 (09:17→21:01)
[2022-11-03] MEDS: guaiFENesin 200 MG/10 ML UDC PO ×4 (09:17→21:02)
[2022-11-03] MEDS: MUPIROCIN 2% OINT 22 GM TUBE 1 APPLIC EACH NARE ×3 (09:18→16:27)
[2022-11-03] MEDS: MIRABEGRON 25 MG ER TABLET PO (09:18)
[2022-11-03] MEDS: MAGNESIUM OXIDE 400 MG TABLET PO (09:18)
[2022-11-03] MEDS: SPIRONOLACTONE 25 MG TABLET PO (09:18)
[2022-11-03] MEDS: polyethylene glycoL 3350 17 GM POWD.PACK PO (09:19)
[2022-11-03] MEDS: CARBAMIDE PEROXIDE 6.5% OT SOLN 15 ML BTL 5 DROP RIGHT EAR ×2 (09:21→16:27)
[2022-11-03] MEDS: CIPROFLOXACIN HC OTIC 10 ML 3 DROP RIGHT EAR ×2 (09:21→21:01)
--- NOTE | 2022-11-03 12:06 | WPDUROPN2 ---
Progress Note: A&P Assessment and Plan (1) Bladder mass: Code(s): N32.89 - Other specified disorders of bladder Status: Acute Assessment and Plan: Appears to be a hematoma on CT, will plan to f/u outpatient for a cystoscopy d/t current UTI. Ok to discharge at any point per Urology. (2) UTI (urinary tract infection): Code(s): N39.0 - Urinary tract infection, site not specified Status: Acute Assessment and Plan: Culture grew Pseudomonas, continue Cefepime, recommend Cefdinir or Cipro to go home with for 7 days BID. Call the office to schedule Cysto. Subjective Subjective Date/Time Seen: 11/03/22 12:[address] shows a 2mm bladder stone that has likely recently passed, bilateral renal stones that are non obstructive as well as a fluid laer in the urinary bladder described as a possible hematoma. This is likely referring to the area of concern seen on LARS. She is otherwise doing well today and feels good. Urine culture grew Pseudomonas and she is on culture appropriate Cefepime. Review of Systems Cardiovascular: Cardiovascular: Denies chest pain Respiratory: Respiratory: Reports no additional respiratory complaints Gastrointestinal: Gastrointestinal: Denies abdominal pain, Denies nausea and Denies vomiting Genitourinary: Genitourinary: Denies hematuria, Denies dysuria, Denies pelvic pain, Denies flank pain, Denies urinary hesitancy and Denies urinary urgency Exam Resp: Effort & Inspection: normal respiratory effort Cardio: Rate: tachycardic GI: GI Palp: Yes Soft to palpation and No Tenderness to palpation present (GI) : General: Yes no CVA tenderness Extrem: Right lower extremity: no edema Left lower extremity: no edema Objective Data Vital Signs Vital Signs: Vital Signs - 24 hr 11/02/22 14:45 11/02/22 14:53 11/02/22 15:14 Temperature 97.7 F Pulse Rate 85 85 Respiratory Rate 18 18 16 Blood Pressure 138/66 Pulse Oximetry 98 Oxygen Delivery Oxygen Flow Rate 11/02/22 16:00 11/02/22 20:41 11/02/22 21:16 Temperature Pulse Rate 90 97 Respiratory Rate Blood Pressure Pulse Oximetry 96 Oxygen Delivery Nasal Cannula Oxygen Flow Rate 2 11/02/22 20:00 11/02/22 22:00 11/02/22 20:00 Temperature 97.9 F Pulse Rate 97 94 94 Respiratory Rate 16 17 Blood Pressure 136/63 Pulse Oximetry 96 97 Oxygen Delivery Nasal Cannula Oxygen Flow Rate 2 11/03/22 00:00 11/03/22 04:00 11/03/22 05:21 Temperature 98.0 F Pulse Rate 97 96 97 Respiratory Rate 17 Blood Pressure 139/70 Pulse Oximetry 97 Oxygen Delivery Oxygen Flow Rate 11/03/22 07:59 11/03/22 08:00 11/03/22 08:12 Temperature Pulse Rate 104 H 104 H Respiratory Rate 18 18 Blood Pressure Pulse Oximetry 92 Oxygen Delivery Nasal Cannula Oxygen Flow Rate 2 11/03/22 09:16 11/03/22 08:00 11/03/22 08:00 Temperature Pulse Rate 105 H 101 H Respiratory Rate Blood Pressure Pulse Oximetry 92 Oxygen Delivery Nasal Cannula Oxygen Flow Rate 2 Intake/Output Intake/Output: Intake & Output 10/31/22 11/01/22 11/02/22 11/03/22 23:59 23:59 23:59 23:59 Intake Total 1520 1570 1300 800 Output Total 200 Balance 1520 1370 1300 800 Meds/Results Medications: Active Medications Generic Name Dose Route Start Last Admin Trade Name Freq PRN Reason Stop Dose Admin Acetaminophen 500 mg 10/24/22 10:26 11/01/22 13:12 Acetaminophen 500 Mg Tablet PO 500 mg TID PRN Administration Pain Amoxicillin/Clavulanate Potassium 1 tablet 10/30/22 15:25 11/03/22 09:15 Amoxicillin/Clavulanate K 875-125 Mg Tab PO 11/03/22 21:01 1 tablet Q12HR ANIYA Administration Carbamide Peroxide 5 drop 11/01/22 17:10 11/03/22 09:21 Carbamide Peroxide 6.5% Ot Soln 15 Ml Btl RIGHT EAR 5 drop BID ANIYA Administration Ciprofloxacin/Hydrocortisone 3 drop 11/01/22 21:00 11/03/22 09:21 Ciprofloxacin Hc Otic 10
[2022-11-03] MEDS: ACETAMINOPHEN 500 MG TABLET PO (13:06)
--- NOTE | 2022-11-03 15:33 | PM.IMPN ---
Progress Note: A&P Assessment and Plan (1) Otitis externa of right ear: Code(s): H60.91 - Unspecified otitis externa, right ear Status: Acute (2) Nasal folliculitis: Code(s): L73.9 - Follicular disorder, unspecified Status: Acute (3) Vertigo: Code(s): R42 - Dizziness and giddiness Status: Acute (4) Protein calorie malnutrition: Code(s): E46 - Unspecified protein-calorie malnutrition Status: Acute (5) Atrial flutter: Code(s): I48.92 - Unspecified atrial flutter Status: Acute (6) Atrial fibrillation with RVR: Code(s): I48.91 - Unspecified atrial fibrillation Status: Acute (7) Tobacco abuse: Code(s): Z72.0 - Tobacco use Status: Acute (8) UTI (urinary tract infection): Code(s): N39.0 - Urinary tract infection, site not specified Status: Acute Plan 72 years old F with PMH of smoking, COPD presented with dizziness, right ear pain.Was also in Afibb with RVR inER requiring Cardizem drip. 1)Right Otitis Externa: Appreciate ENT help Right ear wax irrigated in ER Will need to follow up with ENT upon discharge c/w ear drops for now(cipro) Also on Augmentin for 5 days 2)Nasal Folliculitis: c/w Mupirocin 3)Dizziness/Vertigo: Stroke work up has been negative ?Related to ear infection ?Vestibular neuritis c/w meclizine PRN 4)UTI: c/w ceftriaxone, Await urine culture Renal USG ? concern for renal mass Urology consult, considers a hematoma on CT, will plan to f/u outpatient for a cystoscopy d/t current UTI. 5)Afibb: Appreciate Cardiology help c/w Flecanise, Cardizem Xarelto 6)Protein Calorie Malnutrition: Encourage PO intake Dietary supplements 7)DVT ppx: On Xarelto 8)Amparo:Full 9)Dispo:pending improvement Subjective Date/time seen: 11/03/22 15:33 Interval history: no acute events overnight, denies dizziness, but has general weakness. patient still has bloody urine Exam Narrative: ? General: chronically ill and malnourished Patient is comfortable, NAD HEENT: eyes are clear and none icteric Ear:? Right ear tympanic membrane cloudy looking.? LUNGS: bilateral poor air with harsh breath sounds HEART:? regular rate and rhythm? sinus on monitor ABD:? not distended, soft, nontender Lower extremities: no edema? cyanosis or clubbing SKIN: nonjaundiced Neuro: grossly intact. Objective Data Vital Signs Vital Signs: Vital Signs - 24 hr 11/02/22 16:00 11/02/22 20:41 11/02/22 21:16 Temperature Pulse Rate 90 97 Respiratory Rate Blood Pressure Pulse Oximetry 96 Oxygen Delivery Nasal Cannula Oxygen Flow Rate 2 11/02/22 20:00 11/02/22 22:00 11/02/22 20:00 Temperature 97.9 F Pulse Rate 97 94 94 Respiratory Rate 16 17 Blood Pressure 136/63 Pulse Oximetry 96 97 Oxygen Delivery Nasal Cannula Oxygen Flow Rate 2 11/03/22 00:00 11/03/22 04:00 11/03/22 05:21 Temperature 98.0 F Pulse Rate 97 96 97 Respiratory Rate 17 Blood Pressure 139/70 Pulse Oximetry 97 Oxygen Delivery Oxygen Flow Rate 11/03/22 07:59 11/03/22 08:00 11/03/22 08:12 Temperature Pulse Rate 104 H 104 H Respiratory Rate 18 18 Blood Pressure Pulse Oximetry 92 Oxygen Delivery Nasal Cannula Oxygen Flow Rate 2 11/03/22 09:16 11/03/22 08:00 11/03/22 08:00 Temperature Pulse Rate 105 H 101 H Respiratory Rate Blood Pressure Pulse Oximetry 92 Oxygen Delivery Nasal Cannula Oxygen Flow Rate 2 11/03/22 12:00 11/03/22 13:40 11/03/22 13:48 Temperature Pulse Rate 92 89 92 Respiratory Rate 18 18 Blood Pressure Pulse Oximetry Oxygen Delivery Oxygen Flow Rate 11/03/22 14:00 Temperature 98.8 F Pulse Rate 90 Respiratory Rate 18 Blood Pressure 116/73 Pulse Oximetry 97 Oxygen Delivery Oxygen Flow Rate Intake/Output Intake/Output: Intake & Output 10/31/22 11/01/22 11/02/22 11/03/22 23:59 23:59 23:59 23:59 Intake T
[2022-11-03] MEDS: RIVAROXABAN 15 MG TABLET PO (16:27)
[2022-11-03] MEDS: PRAVASTATIN SODIUM 20 MG TABLET PO (21:01)
[2022-11-04] VITALS (17 sets, daily range): BP systolic 135–141; BP diastolic 65–70; PULSE 72–95; RESP 16–18; TEMP 36.7–36.8; O2SAT 91–98
[2022-11-04] MEDS: IPRATROPIUM BR 0.02% INH SOLN 0.5 MG/2.5 ML VIAL INHALATION ×3 (07:46→21:18)
[2022-11-04] MEDS: FLUTICASONE/UMECLIDIN/VILANTER 100-62.5-25 MCG ELLIPTA 1 PUFF INHALATION (07:47)
--- NOTE | 2022-11-04 07:53 | PM.IMPN ---
Progress Note: A&P Assessment and Plan (1) Otitis externa of right ear: Code(s): H60.91 - Unspecified otitis externa, right ear Status: Acute (2) Nasal folliculitis: Code(s): L73.9 - Follicular disorder, unspecified Status: Acute (3) Vertigo: Code(s): R42 - Dizziness and giddiness Status: Acute (4) Protein calorie malnutrition: Code(s): E46 - Unspecified protein-calorie malnutrition Status: Acute (5) Atrial flutter: Code(s): I48.92 - Unspecified atrial flutter Status: Acute (6) Atrial fibrillation with RVR: Code(s): I48.91 - Unspecified atrial fibrillation Status: Acute (7) Tobacco abuse: Code(s): Z72.0 - Tobacco use Status: Acute (8) UTI (urinary tract infection): Code(s): N39.0 - Urinary tract infection, site not specified Status: Acute Plan 72 years old F with PMH of smoking, COPD presented with dizziness, right ear pain.Was also in Afibb with RVR inER requiring Cardizem drip. 1)Right Otitis Externa: Appreciate ENT help Right ear wax irrigated in ER Will need to follow up with ENT upon discharge c/w ear drops for now(cipro) Also on Augmentin for 5 days 2)Nasal Folliculitis: c/w Mupirocin 3)Dizziness/Vertigo: Stroke work up has been negative ?Related to ear infection ?Vestibular neuritis c/w meclizine PRN 4)UTI: on ceftriaxone, urine culture GROW PSEUDOMONAS AERUGINOSA, susceptible to Levaquin Renal USG ? concern for renal mass Urology consult, considers a hematoma on CT, will plan to f/u outpatient for a cystoscopy d/t current UTI. stop Rocephin IV and start Levaquin, 5)Afibb: Appreciate Cardiology help c/w Flecansilvestre, Cardizem Xarelto 6)Protein Calorie Malnutrition: Encourage PO intake Dietary supplements hyponatremia will add sodium chloride tablet PO, follow-up BMP 7)DVT ppx: On Xarelto 8)Amparo:Full 9)Dispo:pending improvement Subjective Date/time seen: 11/04/22 07:53 Interval history: no acute events overnight, denies dizziness, but has general weakness. urine culture grow Pseudomonas aeruginosa, susceptible to Levaquin, sodium level trending down Exam Narrative: ? General: chronically ill and malnourished Patient is comfortable, NAD HEENT: eyes are clear and none icteric Ear:? Right ear tympanic membrane cloudy looking.? LUNGS: bilateral poor air with harsh breath sounds HEART:? regular rate and rhythm? sinus on monitor ABD:? not distended, soft, nontender Lower extremities: no edema? cyanosis or clubbing SKIN: nonjaundiced Neuro: grossly intact. Objective Data Vital Signs Vital Signs: Vital Signs - 24 hr 11/03/22 07:59 11/03/22 08:00 11/03/22 08:12 Temperature Pulse Rate 104 H 104 H Respiratory Rate 18 18 Blood Pressure Pulse Oximetry 92 Oxygen Delivery Nasal Cannula Oxygen Flow Rate 2 Fraction of Inspired Oxygen 11/03/22 09:16 11/03/22 08:00 11/03/22 08:00 Temperature Pulse Rate 105 H 101 H Respiratory Rate Blood Pressure Pulse Oximetry 92 Oxygen Delivery Nasal Cannula Oxygen Flow Rate 2 Fraction of Inspired Oxygen 11/03/22 12:00 11/03/22 13:40 11/03/22 13:48 Temperature Pulse Rate 92 89 92 Respiratory Rate 18 18 Blood Pressure Pulse Oximetry Oxygen Delivery Oxygen Flow Rate Fraction of Inspired Oxygen 11/03/22 14:00 11/03/22 16:00 11/03/22 20:08 Temperature 98.8 F Pulse Rate 90 92 Respiratory Rate 18 Blood Pressure 116/73 Pulse Oximetry 97 95 Oxygen Delivery Nasal Cannula Oxygen Flow Rate 2 Fraction of Inspired Oxygen 11/03/22 20:55 11/03/22 21:01 11/03/22 20:00 Temperature 97.3 F L Pulse Rate 98 90 93 Respiratory Rate 18 Blood Pressure 116/71 Pulse Oximetry 97 Oxygen Delivery Oxygen Flow Rate Fraction of Inspired Oxygen 11/04/22 00:00 11/04/22 04:00 11/04/22 05:16 Temperature 98.0 F Pulse Rate 87 82 84 Respirat
[2022-11-04 08:27] LABS: Hematocrit 34.7 % (37.0-47.0); Hemoglobin 10.9 g/dL (12.0-15.0); Mean Corpuscular HGB Conc 31.4 g/dl (32-36); Mean Corpuscular Hemoglobin 28.8 pg (26-34); Mean Corpuscular Volume 91.8 fl (80-100); Mean Platelet Volume 9.4 fl (7.4-10.4); Platelet Count Result 396 k/mm3 (150-375); Red Blood Count 3.78 M/mm3 (4.2-5.4); Red Cell Distribution Width 13.3 % (11.5-14.5); White Blood Count 13.1 K/mm3 (4.5-10.0)
[2022-11-04 08:43] LABS: Anion Gap 6 mmol/L (8-16); Blood Urea Nitrogen 23 mg/dL (7-17); Carbon Dioxide 28 mmol/L (22-30); Chloride 96 mmol/L (98-107); Estimated CRCL calculation 36 ml/min; Estimated Glomerular Filt Rate > 60; Glucose 109 mg/dL (65-110); Potassium 4.9 mmol/L (3.4-5.0); Sodium 130 mmol/L (137-145)
[2022-11-04] MEDS: CARBAMIDE PEROXIDE 6.5% OT SOLN 15 ML BTL 5 DROP RIGHT EAR ×2 (08:54→17:25)
[2022-11-04] MEDS: CIPROFLOXACIN HC OTIC 10 ML 3 DROP RIGHT EAR ×2 (08:54→20:27)
[2022-11-04] MEDS: FLUTICASONE PROPIONATE 0.05% NA SPR 16 GM BTL (*BKC) 1 SPRAY NASAL ×2 (08:55→20:28)
[2022-11-04] MEDS: MUPIROCIN 2% OINT 22 GM TUBE 1 APPLIC EACH NARE ×3 (08:55→17:25)
[2022-11-04] MEDS: dilTIAZem HCL CD 180 MG CAP.ER.24H PO (08:56)
[2022-11-04] MEDS: FLECAINIDE ACETATE 100 MG TABLET PO ×2 (08:56→20:28)
[2022-11-04] MEDS: ESCITALOPRAM OXALATE 5 MG TABLET PO (08:56)
[2022-11-04] MEDS: guaiFENesin 200 MG/10 ML UDC PO ×4 (08:57→20:28)
[2022-11-04] MEDS: MAGNESIUM OXIDE 400 MG TABLET PO (08:57)
[2022-11-04] MEDS: MIRABEGRON 25 MG ER TABLET PO (08:57)
[2022-11-04] MEDS: SPIRONOLACTONE 25 MG TABLET PO (08:57)
--- NOTE | 2022-11-04 11:51 | PCPTNOTE ---
Attempted to see patient for PT, however patient declined. Patient reported she just got sick and was nauseous, and does not feel like doing therapy at this time.
[2022-11-04] MEDS: RIVAROXABAN 15 MG TABLET PO (17:24)
[2022-11-04] MEDS: SODIUM CHLORIDE 1 GM TABLET 2 GM PO (17:24)
[2022-11-04] MEDS: PRAVASTATIN SODIUM 20 MG TABLET PO (20:28)
[2022-11-05] VITALS (7 sets, daily range): BP systolic 137; BP diastolic 75; PULSE 90–100; RESP 16–18; TEMP 36.6; O2SAT 100
--- NOTE | 2022-11-05 09:04 | PM.DS ---
DS: Admitting Diagnosis Discharge Date today Admitting Diagnosis 1) Otitis externa of right ear: ?Code(s): H60.91 - Unspecified otitis externa, right ear ?Status:?Acute (2) Nasal folliculitis: ?Code(s): L73.9 - Follicular disorder, unspecified ?Status:?Acute (3) Vertigo: ?Code(s): R42 - Dizziness and giddiness ?Status:?Acute (4) Protein calorie malnutrition: ?Code(s): E46 - Unspecified protein-calorie malnutrition ?Status:?Acute (5) Atrial flutter: ?Code(s): I48.92 - Unspecified atrial flutter ?Status:?Acute (6) Atrial fibrillation with RVR: ?Code(s): I48.91 - Unspecified atrial fibrillation ?Status:?Acute (7) Tobacco abuse: ?Code(s): Z72.0 - Tobacco use ?Status:?Acute (8) UTI (urinary tract infection): ?Code(s): N39.0 - Urinary tract infection, site not specified ?Status:?Acute DS: Discharge Diagnosis Discharge Diagnosis (1) Otitis externa of right ear: Code(s): H60.91 - Unspecified otitis externa, right ear Status: Acute (2) Nasal folliculitis: Code(s): L73.9 - Follicular disorder, unspecified Status: Acute (3) Vertigo: Code(s): R42 - Dizziness and giddiness Status: Acute (4) Protein calorie malnutrition: Code(s): E46 - Unspecified protein-calorie malnutrition Status: Acute (5) Atrial flutter: Code(s): I48.92 - Unspecified atrial flutter Status: Acute (6) Atrial fibrillation with RVR: Code(s): I48.91 - Unspecified atrial fibrillation Status: Acute (7) Tobacco abuse: Code(s): Z72.0 - Tobacco use Status: Acute (8) UTI (urinary tract infection): Code(s): N39.0 - Urinary tract infection, site not specified Status: Acute Plan 72 years old F with PMH of smoking, COPD presented with dizziness, right ear pain.Was also in Afibb with RVR inER requiring Cardizem drip. 1)Right Otitis Externa: Appreciate ENT help Right ear wax irrigated in ER received ear drops for now(cipro) and on Augmentin for 5 days she needs to follow up with ENT upon discharge 2)Nasal Folliculitis: c/w Mupirocin 3)Dizziness/Vertigo: Stroke work up has been negative Related to ear infection c/w meclizine PRN 4)UTI: on ceftriaxone, urine culture GROW PSEUDOMONAS AERUGINOSA, susceptible to Levaquin Renal USG ? concern for renal mass Urology consult, considers a hematoma on CT, will plan to f/u outpatient for a cystoscopy d/t current UTI. stop Rocephin IV and start cefepime on 11/03 change to levofloxacin 500 mg t.i.d. p.o. for 7 more days at the charge patient will follow-up with urologist in the office as scheduled appointment 5)Afibb: Appreciate Cardiology help c/w Flecanise, Cardizem continue Xarelto discontinue sotalol per cardiology's request 6)Protein Calorie Malnutrition: Encourage PO intake Dietary supplements hyponatremia will add sodium chloride tablet PO, follow-up BMP per PCP involve awake DS: Summary Hospital Course Reason for hospitalization: Dizziness Hospital Course: Patient is a 72-year-old female who presents the emergency department with chief complaint of dizziness patient reports that she has had difficulty hearing out of her right ear for about a week reports that she used drops in her ear to try to irrigate this without success.? Patient reports she started having sensation of though she was spending and reports this feels similar to whenever she had vertigo in the past.? Patient reports its worse whenever she opens her eyes the patient reports no trauma does report that she is on blood thinners for atrial fibrillation.? Patient reports no chest pain reports that she has had nausea and vomiting and now is at the point of dry heaving.? The patient was in the hospital recently for pneumonia and has finished her course of antibiotics.? Patient is on Cardizem and on Xarelto. during hospitalization, patient received t
[2022-11-05] MEDS: IPRATROPIUM BR 0.02% INH SOLN 0.5 MG/2.5 ML VIAL INHALATION (09:16)
[2022-11-05] MEDS: FLUTICASONE/UMECLIDIN/VILANTER 100-62.5-25 MCG ELLIPTA 1 PUFF INHALATION (09:40)
[2022-11-05] MEDS: FLECAINIDE ACETATE 100 MG TABLET PO (09:53)
[2022-11-05] MEDS: ESCITALOPRAM OXALATE 5 MG TABLET PO (09:53)
[2022-11-05] MEDS: PROCHLORPERAZINE MALEATE 5 MG TABLET 10 MG PO (09:53)
[2022-11-05] MEDS: MAGNESIUM OXIDE 400 MG TABLET PO (09:53)
[2022-11-05] MEDS: FLUTICASONE PROPIONATE 0.05% NA SPR 16 GM BTL (*BKC) 1 SPRAY NASAL (09:54)
[2022-11-05] MEDS: SPIRONOLACTONE 25 MG TABLET PO (09:54)
[2022-11-05] MEDS: guaiFENesin 200 MG/10 ML UDC PO (09:54)
[2022-11-05] MEDS: MIRABEGRON 25 MG ER TABLET PO (09:55)
[2022-11-05] MEDS: dilTIAZem HCL CD 180 MG CAP.ER.24H PO (09:55)
[2022-11-05] MEDS: CIPROFLOXACIN HC OTIC 10 ML 3 DROP RIGHT EAR (09:56)
[2022-11-05] MEDS: SODIUM CHLORIDE 1 GM TABLET 2 GM PO (09:57)
--- NOTE | 2022-11-05 11:10 | PC.NURSE ---
Pt pharmacy called to inquire regarding discharge medication order that was transmitted electronically to them. Order reads Sodium Chloride 1,000 g PO TID, #30. Order Clarified: Sodium Chloride 1,000 mg PO TID, #30. Unable to edit the ambulatory order in computer to reflect the change in the discharge order for the patient's/permanent record.
--- NOTE | 2022-11-16 15:35 | PM.IMPN ---
Progress Note: A&P Assessment and Plan (1) Atrial flutter: Code(s): I48.92 - Unspecified atrial flutter Status: Acute (2) Protein calorie malnutrition: Code(s): E46 - Unspecified protein-calorie malnutrition Status: Acute (3) Atrial fibrillation with RVR: Code(s): I48.91 - Unspecified atrial fibrillation Status: Acute (4) Acute exacerbation of CHF (congestive heart failure): Code(s): I50.9 - Heart failure, unspecified Status: Acute (5) Complicated UTI (urinary tract infection): Code(s): N39.0 - Urinary tract infection, site not specified Status: Acute Plan 72 years old F with PMH of smoking, COPD presented with dizziness, right ear pain.Was also in Afibb with RVR inER requiring Cardizem drip. 1)Right Otitis Externa: Appreciate ENT help Right ear wax irrigated in ER received ear drops for now(cipro) and on Augmentin for 5 days she needs to follow up with ENT upon discharge 2)Nasal Folliculitis: c/w Mupirocin 3)Dizziness/Vertigo: Stroke work up has been negative Related to ear infection c/w meclizine PRN 4)UTI: on ceftriaxone, urine culture GROW PSEUDOMONAS AERUGINOSA, susceptible to Levaquin Renal USG ? concern for renal mass Urology consult, considers a hematoma on CT, will plan to f/u outpatient for a cystoscopy d/t current UTI. stop Rocephin IV and start cefepime on 3/2 change to levofloxacin 500 mg t.i.d. p.o. for 7 more days at the charge patient will follow-up with urologist in the office as scheduled appointment 5)Afibb: Appreciate Cardiology help c/w Flecanise, Cardizem continue Xarelto discontinue sotalol per cardiology's request 6)Protein Calorie Malnutrition: Encourage PO intake Dietary supplements hyponatremia will add sodium chloride tablet PO, follow-up BMP per PCP involve awake Subjective Date/time seen: 11/16/22 15:35 Interval history: no acute events overnight, denies dizziness, but has general weakness. urine culture grow Pseudomonas aeruginosa, susceptible to Levaquin, sodium level trending down Review of Systems Review of Systems: All systems reviewed & are unremarkable except as noted in HPI and below Exam Narrative: ? General: chronically ill and malnourished Patient is comfortable, NAD HEENT: eyes are clear and none icteric Ear:? Right ear tympanic membrane looking clear now, no discharge .? LUNGS: bilateral poor air with harsh breath sounds HEART:? regular rate and rhythm? sinus on monitor ABD:? not distended, soft, nontender Lower extremities: no edema? cyanosis or clubbing SKIN: nonjaundiced Neuro: grossly intact. Objective Data Meds/Results Radiology Results: ITS Impressions Chest X-Ray 10/24/22 06:49 Impression: Hazy left upper lobe airspace disease. Correlate for pneumonia. Probable underlying left upper lobe scarring, versus additional pneumonia, unchanged. COPD. Head CT 10/24/22 06:54 Impression: No significant abnormality seen. Brain MRI 10/28/22 15:42 IMPRESSION: 1. Moderate nonspecific cerebral white matter disease and pontine disease, which likely represents chronic small vessel ischemic disease. Renal Ultrasound 11/01/22 18:50 IMPRESSION: Bilateral nephrolithiasis. Intraluminal echogenicities in the urinary bladder likely represent hemorrhagic, crystalline, or infectious debris, noting that a bladder mass is not excluded. Carotid Doppler Study 11/02/22 06:22 Impression: No hemodynamically significant stenosis of the bilateral internal carotid arteries. Antegrade flow in the bilateral vertebral arteries. Note: The methodology used is an indirect measurement validated against a direct method (such as the NASCET criteria) that compares diameters at the stenosis to the distal ICA. Abdomen X-Ray 11/02/22 16:36 IMPRESSION: 1. Right kidney stones. Abdomen/Pelvis CT 11/02/22 19:02 IMPRESSION: 1. Fluid flu
== END 2022-11-05 12:00 | disposition home health service (06) | DRG 155 ==
LOC: ANHED 10-24 06:11 → ANHIMU 10-24 07:38 → ANH2MED 10-24 15:58
PROVIDERS: Family Medicine; Internal Medicine; Admitting Provider Internal Medicine; Emergency Provider Emergency Medicine; PCP Nurse Practitioner Family; Visit Provider Hospitalist
DX: H60.91 Unspecified otitis externa, right ear (principal); I48.92 Unspecified atrial flutter; E46 Unspecified protein-calorie malnutrition; Z68.1 Body mass index [BMI] 19.9 or less, adult; N39.0 Urinary tract infection, site not specified; L73.9 Follicular disorder, unspecified; R42 Dizziness and giddiness; I48.91 Unspecified atrial fibrillation; J43.9 Emphysema, unspecified; N32.89 Other specified disorders of bladder; Z79.899 Other long term (current) drug therapy; Z79.51 Long term (current) use of inhaled steroids; Z87.891 Personal history of nicotine dependence; Z88.5 Allergy status to narcotic agent; Z88.1 Allergy status to other antibiotic agents
CPT/HCPCS: 36415; 51701; 70450; 70551; 71045; 74018; 74178; 76775; 80048; 80053; 81001; 82948; 83690; 83735; 84484; 85025; 85027; 87077; 87086; 87088; 87186; 93005; 93880; 94640; 96361; 96365; 96366; 96367; 96375; 96376; 97110; 97162; 97164; 97166; 97530; 97535; 99285; A9270; G0378; J0282; J0692; J0696; J2405; J7030; Q9967

== ENCOUNTER 2023-03-09 13:12 | Outpatient (CLI) | payer OTHER, SELFPAY ==
--- NOTE | ~2023-03-09 | CT_ITS ---
EXAMINATION: CT diagnostic chest wo con DATE: 03/09/2023 13:38 INDICATION: Pneumonia, unspecified organism, left upper lobe. 09/29/2022 CTA examination report of unchanged 8 mm pulmonary nodules of left lower lobe, likely seque lae of old granulomatous disease, but would consider 6-12 month follow TECHNIQUE: Computed tomography (CT) of the chest was performed without intravenous contrast. Automate d exposure control and iterative reconstruction technique were employed. Exam dose: 124.65 mGy-cm to kin exam DLP. COMPARISON: October 24, 2022 portable AP chest 09/29/2022 CT pulmonary scan FINDINGS: Chronic bilateral apical fibrocalcific scarring. Severe emphysematous changes are again noted. There is contraction of the prominent consolidation of the left upper lobe and lingula since 3 consistent with postinfectious scarring and left upper lobe atelectasis. Stable approximately 6 mm superior segment left lower lobe pulmonary nodule with attenuation up to 14 8 Hounsfield units, likely calcified pulmonary granuloma. Stable approximately 8 mm lateral left lowe r lobe pulmonary nodule attenuation up to 317 Hounsfield units, also likely a calcified pulmonary gra nuloma. There is focal lateral left lower lobe basilar discoid atelectasis or scarring. There is new prominent consolidation in the left upper lobe in the upper perihilar area since 09/29/19 23, likely due to pneumonia. A smaller mass or focal consolidation is noted in the anterolateral righ t lower lobe measuring up to approximately 2.2 cm maximal dimension. Discoid atelectasis or scarring is noted in the right lower lobe. Normal heart size. Coronary artery calcification. No pericardial effusion. There is extensive thoracic aortic as well as great vessel calcification. No thoracic aortic aneurysm . No hilar or mediastinal mass lesion or lymphadenopathy is noted. Normal morphology of the adrenal glands. Hepatic and splenic calcified granulomas consistent with old granulomatous disease Small sliding hiatal hernia. Mild to moderate anterior wedge compression fracture of T11. No suspicious osteolytic or osteoblastic lesions are noted. 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 Reviewed, dictated and finalized at [facility]. 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
== END 2023-03-09 13:13 | disposition home or self-care (01) ==
PROVIDERS: PCP Nurse Practitioner Family; Visit Provider Internal Medicine Pulmonary Disease
DX: J18.9 Pneumonia, unspecified organism (principal); J98.11 Atelectasis; J43.9 Emphysema, unspecified; R91.8 Other nonspecific abnormal finding of lung field
CPT/HCPCS: 71250

== ENCOUNTER 2023-09-08 13:30 | Outpatient (CLI) | payer OTHER, SELFPAY ==
--- NOTE | ~2023-09-08 | CT_ITS ---
CT Scan of the Chest without Contrast: Clinical Indication: COPD Technique: Contiguous sections were acquired throughout the chest without intravenous contrast. Dose reduction technique was used on this scan by utilizing automated exposure control and iterative recon struction technique. The dose-length product (DLP) was 134.99 mGy-cm. COMPARISON: 03/09/2023 Findings: There is no evidence of any significant mediastinal, hilar or axillary lymphadenopathy. The mediastin al soft tissues appear normal. There is no evidence of pleural or pericardial effusion. There is biapical scarring. Stable nodule in the superior segment left lower lobe. There is decreased size of nodule/consolidation at the right upper lobe, which currently measures up to approximately 3 cm in diameter. There is chronic scarring at the lingula, unchanged. There is moderate to severe emp hysema. Stable additional left lower lobe nodule (axial image 51). Images through the upper abdomen reveal bilateral nonobstructing renal stones. Impression: Irregular somewhat nodular/masslike consolidation right upper lobe, highly decreased in extent from p rior exam. This presumably represents slowly resolving pneumonia given interval decrease in size. Stable chronic scarring in the lingula with additional left pulmonary nodules, which also unchanged, as detailed above. Moderate to advanced emphysema. Bilateral nephrolithiasis. Reviewed, dictated and finalized at [facility] Impression: Irregular somewhat nodular/masslike consolidation right upper lobe, highly decr eased in extent from prior exam. This presumably represents slowly resolving pn eumonia given interval decrease in size. Stable chronic scarring in the lingula with additional left pulmonary nodules, which also unchanged, as detailed above. Moderate to advanced emphysema. Bilateral nephrolithiasis.
== END 2023-09-08 13:31 | disposition home or self-care (01) ==
PROVIDERS: PCP Nurse Practitioner Family; Visit Provider Internal Medicine Pulmonary Disease
DX: J18.9 Pneumonia, unspecified organism (principal); J44.9 Chronic obstructive pulmonary disease, unspecified; R91.8 Other nonspecific abnormal finding of lung field; N20.0 Calculus of kidney
CPT/HCPCS: 71250

== ENCOUNTER 2024-02-20 16:58 | Outpatient (CLI) | payer OTHER, SELFPAY ==
--- NOTE | ~2024-02-20 | CT_ITS ---
EXAMINATION:CT diagnostic chest wo con DATE: 02/20/2024 17:32 INDICATION: Solitary pulmonary nodule. TECHNIQUE: Computed tomography (CT) of the chest was performed without intravenous contrast. Automate d exposure control and iterative reconstruction technique were employed. The dose-length product (DLP ) was 61.85 mGy-cm. COMPARISON: Chest CT 09/08/2023, 03/09/2023, 09/08/2022 FINDINGS: There is severe emphysema. There is chronic scarring in left upper lobe. There are perihila r airspace opacities with volume loss in right upper lobe with improvement from 09/08/2023 and 03/09/2023 . There are mild airspace opacities in superior segment left lower lobe with worsening from 09/08/2023. There is mild scarring in right lower lobe. There is a 7 mm nodule in left lower lobe, stable from , likely benign. No pleural effusion. The heart size is normal. There are coronary artery calc ifications. No pericardial effusion. Calcifications in the spleen are consistent with old granulomato us disease. There are stones in the kidneys measuring up to 6 mm on the right. There is mild chronic height loss of multiple vertebral bodies. There is mild thoracic spondylosis and severe lumbar spondy losis. IMPRESSION: 1. Continued improvement in perihilar airspace opacities in right upper lobe, consistent with chronic pneumonia. 2. Worsened mild airspace opacities in superior segment left lower lobe, consistent with pneumonia. 3. Severe emphysema. Reviewed, dictated and finalized at [facility]. IMPRESSION: 1. Continued improvement in perihilar airspace opacities in right upper lobe, c onsistent with chronic pneumonia. 2. Worsened mild airspace opacities in superior segment left lower lobe, consis tent with pneumonia. 3. Severe emphysema.
== END 2024-02-20 16:59 | disposition home or self-care (01) ==
LOC: ANHIMG 16:59
PROVIDERS: PCP Internal Medicine; Visit Provider Internal Medicine Pulmonary Disease
DX: J43.9 Emphysema, unspecified (principal); J98.4 Other disorders of lung; R91.1 Solitary pulmonary nodule
CPT/HCPCS: 71250

== ENCOUNTER 2024-08-19 10:26 | Outpatient (CLI) | payer OTHER, SELFPAY ==
--- NOTE | ~2024-08-19 | CT_ITS ---
CT Scan of the Chest without Contrast: Clinical Indication: COPD Technique: Contiguous sections were acquired throughout the chest without intravenous contrast. Dose reduction technique was used on this scan by utilizing automated exposure control and iterative recon struction technique. The dose-length product (DLP) was 132.86 mGy-cm. COMPARISON: 02/20/2024 Findings: There is no evidence of any significant mediastinal, hilar or axillary lymphadenopathy. There are ext ensive atherosclerotic calcifications of the coronary arteries and aorta. There is no evidence of pleural or pericardial effusion. Stable emphysema and biapical scarring with calcifications. Stable additional irregular nodule in the left upper lobe (axial image 29) disease. Stable irregular nodular scarring in the superior segment left lower lobe. Stable irregular consolidation in the right upper lobe in the perihilar region. Stab le chronic scarring or atelectasis at the lingula. Probable irregular airspace opacity focally in the right lower lobe (axial image 64), likely focal in fectious/inflammatory process or atelectatic change. Images through the upper abdomen reveal nonobstructing right renal stone. Stable mild compression def ormities in the spine. Impression: Multiple areas of scarring and irregular consolidation the lungs are largely stable from prior exam, most prominent in the right perihilar region the upper lobe. Small new peripheral airspace opacity in the right lower lobe, most likely infectious/inflammatory in nature. Stable emphysema. Reviewed, dictated and finalized at [facility]. [facility] Impression: Multiple areas of scarring and irregular consolidation the lungs are largely st able from prior exam, most prominent in the right perihilar region the upper lo be. Small new peripheral airspace opacity in the right lower lobe, most likely infectious/inflammatory in nature. Stable emphysema.
== END 2024-08-19 10:27 | disposition home or self-care (01) ==
PROVIDERS: PCP Internal Medicine; Visit Provider Internal Medicine Pulmonary Disease
DX: J43.9 Emphysema, unspecified (principal); J44.9 Chronic obstructive pulmonary disease, unspecified; J18.9 Pneumonia, unspecified organism
CPT/HCPCS: 71250

== ENCOUNTER 2024-10-12 16:51 | Inpatient (IN) | payer OTHER, SELFPAY ==
[2024-10-12] VITALS (21 sets, daily range): BP systolic 119–179; BP diastolic 66–79; PULSE 82–119; RESP 16–35; TEMP 36.4–36.6; O2SAT 77–98; BMI 18.8
--- NOTE | ~2024-10-12 | XR_ITS ---
CHEST RADIOGRAPH CLINICAL HISTORY: RSV . COMPARISON: 10/16/2024 TECHNIQUE: Single portable view of the chest. FINDINGS The cardiomediastinal silhouette is unremarkable. Coarse interstitial lung markings detected bilaterally, likely chronic. Increased interstitial markings are identified bilaterally, findings suggesting mild pulmonary vascul ar congestion. Blunting of the right costophrenic sulcus suggesting a small right-sided pleural effusion. The remainder of the lungs are clear. IMPRESSION: Chronic interstitial change with mild pulmonary vascular congestion and a small right-sided pleural e ffusion. Reviewed, dictated and finalized at location A. TIONSHIP BANKER IMPRESSION: Chronic interstitial change with mild pulmonary vascular congestion and a small right-sided pleural effusion.
--- NOTE | ~2024-10-12 | CT_ITS ---
EXAMINATION: CT diagnostic chest w con DATE: 10/12/2024 19:27 INDICATION: sob, copd hypoxia, cough TECHNIQUE: Computed tomography (CT) of the chest was performed with 100 mL Omnipaque-350 intravenous contrast. Automated exposure control and iterative reconstruction technique were employed. The dose-l ength product was 127.76 mGy-cm. COMPARISON: 08/19/2024; x-ray chest 10/12/2024. FINDINGS: CHEST: Thoracic aorta: No significant dilation. No dissection. Moderate atherosclerotic plaque. Lung parenchyma and airways: Biapical pleural scarring. Stable irregular nodular scarring in the bila teral upper lobes and superior segment of the left lower lobe. Scattered smaller areas of scarring pe ripherally and in the bases. Small foci of tree-in-bud like opacities in the right middle lobe and li ngula. Emphysematous change. Calcified left lower lobe granuloma. Patent airways. Thoracic inlet, axillae and chest wall: No thyroid or soft tissue mass. No axillary lymphadenopathy. Mediastinum: No mass or lymphadenopathy. Heart and pericardium: Normal heart size. No pericardial effusion. Coronary artery calcifications: Mild. Pleura: No effusion or mass. Upper abdomen: Mild distal esophageal and gastric wall edema. Diffuse fatty infiltration of the liver . Thoracic bones: No acute osseous finding in the chest. Stable mild compression deformities in the tho racic spine. IMPRESSION: Scattered small, likely infectious/inflammatory foci, overlying a background of severe emphysematous change and largely stable areas of parenchymal scarring. Mild esophagitis/gastritis. Hepatic steatosis. Reviewed, dictated and finalized at location K. HALMIC TECHNICIAN APPRENTICE
--- NOTE | ~2024-10-12 | XR_ITS ---
XR chest 1V portable 10/16/2024 08:37 Indication: RSV Procedure: AP portable chest Comparison: Comparison to multiple prior studies sequentially, with oldest reviewed study dated 10/03 and 10/24/2022. Findings: Heart size normal. The lungs are hyperinflated which is consistent with, but not diagnostic of chronic obstructive pulmonary disease. There is chronic upper lobe scarring bilaterally without s ignificant change dating back to 10/24/2022. No acute focal pneumonia, edema or effusion. No pneumotho rax. Impression: 1: No acute cardiopulmonary disease. No significant interval change. Reviewed, dictated and finalized at location [] GER FINE Impression: 1: No acute cardiopulmonary disease. No significant interval change.
--- NOTE | ~2024-10-12 | US_ITS ---
EXAMINATION: US venous doppler UE LT DATE: 10/16/2024 11:24 INDICATION: Left upper limb swelling. TECHNIQUE: Grayscale ultrasound images without and with compression and Doppler ultrasound images of the left upper extremity veins were obtained. COMPARISON: None. FINDINGS: The visualized portions of the left internal jugular vein, subclavian vein, axillary vein, brachial v eins, basilic vein, cephalic vein, radial vein, and ulnar vein are patent. There is subcutaneous dania a in the left upper limb. IMPRESSION: 1. No deep venous thrombosis. Reviewed, dictated and finalized at location A. CILPERSON
--- NOTE | ~2024-10-12 | XR_ITS ---
EXAMINATION: XR chest 1V portable Exam Date/Time: 10/12/2024 17:48 CARDIAC CATH TECH HISTORY: sob Comparison: 10/24/2022. RESULT: Lines, tubes, and devices: None. Lungs and pleura: Rightward rotation. Emphysematous/senescent change. Cardiomediastinal silhouette: Stable. Other: No acute osseous or upper abdominal finding. IMPRESSION: No acute cardiopulmonary process. Reviewed, dictated and finalized at location K. IAC CATH TECH
--- OUTSIDE RECORDS SUMMARY | 2024-10-12 16:53 | XMS_ITS | Clinical Summary ---
Author Organization [facility] [place] [address] [facility] [address] [place] [address] Care Team Providers Care Rheostat Assembler Name Role Phone Emile Julio MD Primary Care Provide r Allergies No known active allergies Medications mirabegron ER (MYRBETRIQ) 25 mg tablet extended release 24 hr Take 1 tablet (25 mg total) by mouth Active omeprazole (PriLOSEC) 20 mg capsule Take 1 capsule (20 mg total) by mouth daily Active escitalopram (LEXAPRO) 5 mg tablet Take 1 tablet (5 mg total) by mouth daily Active pravastatin (PRAVACHOL) 20 mg tablet pravastatin 20 mg tablet 2 Active ergocalciferol (VITAMIN D) 50,000 unit capsule Take 1 capsule (50,000 Units total) by mouth once a week 3 Active cyanocobalamin (Vitamin B-12) 1,000 mcg/mL injection Inject 1 mL every month by subcutaneous route. 3 Active ferrous sulfate 325 mg (65 mg of elemental iron) tablet Take 1 tablet (325 mg total) by mouth 2 (two) times a day Active rivaroxaban (Xarelto) 15 mg tabletIndication s:Paroxysmal atrial fibrillation (CMS/HCC) (HCC) TAKE 1 TABLET BY MOUTH ONCE DAILY WITH SUPPER 30 tablet 10 4 Active flecainide (TAMBOCOR) 100 mg tabletIndication s:Paroxysmal atrial fibrillation (CMS/HCC) (HCC) Take 1 tablet by mouth twice daily 180 tablet 2 4 Active diltiaZEM (CARDIZEM) 120 mg tabletIndication s:Paroxysmal atrial fibrillation (CMS/HCC) (HCC) Take 1 tablet by mouth once daily 90 tablet 2 4 Active losartan (COZAAR) 25 mg tablet Take 1 tablet (25 mg total) by mouth daily 4 Active Breztri Aerosphere 160-9-4.8 mcg/actuation inhaler Inhale 2 puffs 2 (two) times a day 4 Active calcitRIOL (ROCALTROL) 0.25 mcg capsule 1 capsule (0.25 mcg total) daily 4 Active magnesium oxide (MAG-OX) 400 mg (241.3 mg elemental magnesium) tabletIndication s:hypomagnesemia Take 1 tablet (400 mg total) by mouth daily 90 tablet 3 4 Active Active Problems Problem Noted Date Diagnosed Date Paroxysmal atrial fibrillation (CMS/HCC) 023 Lipid screening 06/13/2023 Sensorineural hearing loss, asymmetrical 023 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/14/2022 Medical History Medical History Date Comments Atrial fibrillation (CMS/HCC) (HCC) Family History Medical History Relation Name Comments Heart attack Brother 1 Suicide Completion Brother 2 Heart disease Father COPD Mother No Known Problems Sister 1 No Known Problems Sister 2 COPD Sister 3 Relation Name Status Comments Brother 1 Brother 2 Father Mother Sister 1 Alive Sister 2 Alive Sister 3 Alive Social History Tobacco Use Types Packs/Day Years Used Date Smoking Tobacco: Former Cigarettes 1 40 1 10/05/1981 - 08/04/2022 Tobacco Cessation:Counseling Given: Not Answered Personal Safety Answer Date Recorded Getting School Help Needed Not on file 08/24 Comments Unknown Sex and Gender Information Value Date Recorded Sex Assigned at Not on file Legal Sex Female 11:13 AM 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 Gender Identity Not on file Sexual Orientation Not on file Obstetrics History Last Filed Vital Signs Vital Sign Reading Time Taken Comments Blood Pressure 116/66 07/03/2024 2:51 PM CDT Pulse 91 07/03/2024 2:51 PM CDT Temperature - - Respiratory Rate - - Oxygen Saturation 91% 07/03/2024 2:51 PM CDT Inhaled Oxygen Concentration - - Weight 46.7 kg (103 lb) 07/03/2024 2:51 PM CDT Height 154.9 cm (5' 1 ) 07/03/2024 2:51 PM CDT Body Mass Index 19.46 07/03/2024 2:51 PM CDT Plan of Treatment Health Maintenance Due Date Last Done Comments Depression Screening 1948 Fall Risk Assessment 1950 Hepatitis C Screening 1950 Osteoporosis Screening-Bone Density Scan 1950 DTaP/Tdap/Td Vaccine (1 - Tdap) 1959 Hepatitis B Screening 1966 Lung Cancer Screening 1998 Zoster Vaccine (1 of 2) 1998 Well Visit 65+ 2013 Covid-19 Vaccine (3 - 2023-2 5 season) 2024 12/29/2020, 12/01/2020 Influenza Vaccine (#1) 2024 , 07/06/2021, 07/27/2020, Additional history exists Pneumococcal vaccine 65+ Completed 09/04/2019, 07/06 Insurance [facility] Care Teams Rheostat Assembler Relationship Specialty Start Date End Date Emile Julio MD [address] [id number] PCP - General Internal Medicine 12/19/23
--- OUTSIDE RECORDS SUMMARY | 2024-10-12 16:53 | XMS_ITS | CONTINUITY OF CARE DOCUMENT ---
Author Name nanda vee Address Unknown Organization [facility] Address [address] [place] [address] Phone [phone] Care Team Providers Care Patent Examiner Name Role Phone Aniket TRAVIS, Archie Unavailable [phone] SILVER CANAS Unavailable [phone] HOPSILVER RAMIREZ Unavailable [phone] PROBLEMS Condition Status Date Provider Notes Abnormal urinalysis finding active Misbah patel RN Atrial fibrillation active Brigid Chrun Tobacco abuse, quit 09/21 active Archie koch MD Fatigue active Archie Marcial MD Shortness of breath active Archie Marcial MD COPD active Archie Marcial MD HTN essential active Archie Marcial MD Urinary disorder active Archie Marcial MD Pulmonary lesion active Archie Marcial MD ENCOUNTERS Date Type Provider Location Encounter Diag nosis - In-person encounter Office Visit Archie Marcial MD [facility] - In-person encounter Office Visit Archie Marcial MD [facility] - In-person encounter Office Visit Archie Marcial MD [facility] - In-person encounter Office Visit Archie Marcial MD [facility] - In-person encounter Office Visit Archie Marcial MD [facility] - In-person encounter Office Visit Archie Marcial MD [facility] - In-person encounter Office Visit Archie Marcial MD [facility] - In-person encounter Office Visit Archie Marcial MD [facility] - In-person encounter Office Visit Archie Marcial MD [facility] - In-person encounter Office Visit Archie Marcial MD [facility] Pulmonary lesion - In-person encounter Office Visit Archie Marcial MD [facility] - In-person encounter Office Visit Archie Marcial MD [facility] Urinary disorder - In-person encounter Office Visit Archie Marcial MD [facility] - In-person encounter Office Visit Archie Marcial MD [facility] HTN essential - In-person encounter Office Visit Archie Marcial MD [facility] COPD - In-person encounter Office Visit Archie Marcial MD [facility] - In-person encounter Office Visit Archie Marcial MD [facility] FatigueShortness of breath - In-person encounter Office Visit Archie Marcial MD [facility] - In-person encounter Office Visit Archie Marcial MD [facility] Tobacco abuse, quit 09/21 - In-person encounter Office Visit Archie Marcial MD [facility] - In-person encounter Office Visit Archie Marcial MD [facility] Tobacco abuse, quit 09/21 VITAL SIGNS Date Observation Value Provider Body Mass Index (Ratio) 13.99 kg/m2 Dante Marcial MD oxygen saturation, oximetry 91 % Chiquita Terrell pulse rate 65 /min Chiquitaken Terrell Inhaled O2 2 L/min Chiquitaken Terrell weight E&M 79 [lb_av] Chiquitaken Terrell height E&M 63 [in_i] Chiquita Terrell blood pressure, cuff size large An ya Xander Body Mass Index (Ratio) 14.35 kg/m2 Dante Marcial MD blood pressure, diastolic 70 mm[Hg] Ri karla Corteserson blood pressure, systolic 141 mm[Hg] Jamel cornelio Jhaveri oxygen saturation, oximetry 96 % Danitabeth Corteserson pulse rate 65 /min [facility] respiratory rate E&M 16 /min Adán don Jhaveri blood pressure, cuff size small Ri karla Corteserson weight E&M 81 [lb_av] Danita Tur[facility] height E&M 63 [in_i] Danita [facility] Body Mass Index (Ratio) 13.64 kg/m2 Dante Marcial MD blood pressure, cuff size small Ke rri Domitila blood pressure, diastolic 83 mm[Hg] Ke rri Guadalupe blood pressure, systolic 162 mm[Hg] Letty Ramesh oxygen saturation, oximetry 96 % Janey Ramesh respiratory rate E&M 14 /min Janey nieto pulse rate 76 /min Janey castillo weight E&M 77 [lb_av] Janey castillo height E&M 63 [in_i] Janey duque Body Mass Index (Ratio) 13.64 kg/m2 Dante Marcial MD blood pressure, diastolic 76 mm[Hg] Sa ra Polanco blood pressure, systolic 149 mm[Hg] Krunal a Polanco oxygen saturation, oximetry 94 % Mary Polanco respiratory rate E&M 16 /min Mary Si ms pulse rate 68 /min Mary Polanco weight E&M 77 [lb_av] Mary Polanco height E&M 63 [in_i] Mary Polanco blood pressure, cuff size regular Sa ra Polanco Body Mass Index (Ratio) 13.82 kg/m2 Dante Marcial MD blood pressure, cuff size large Tr racquel Sharp blood pressure, diastolic 100 mm[Hg] Tr racquel Sharp blood pressure, systolic 160 mm[Hg] Try chris Sharp oxygen saturation, oximetry 99 % Bryant Sharp respiratory rate E&M 18 /min Bryant Sharp pulse rate 69 /min Bryant Sharp weight E&M 78 [lb_av] Bryant Sharp height E&M 63 [in_i] Bryant Sharp Body Mass Index (Ratio) 13.99 kg/m2 Dante Marcial MD blood pressure, cuff size small Ke rri Domitila blood pressure, diastolic 82 mm[Hg] Ke rri Domitila blood pressure, systolic 124 mm[Hg] Letty Ramesh oxygen saturation, oximetry 95 % Janey Ramesh respiratory rate E&M 16 /min Janey nieto pulse rate 69 /min Janey duque weight E&M 79 [lb_av] Janey Nobleneamirae er height E&M 63 [in_i] Janey Raghav er Body Mass Index (Ratio) 13.96 kg/m2 Dante Marcial MD blood pressure, diastolic 68 mm[Hg] Li nkLogic blood pressure, systolic 107 mm[Hg] Tiara kLogic blood pressure, resting Yes Willie Montgomeryford pulse rate 68 /min Kwesi Montgomery aparicio oxygen saturation, oximetry 97 % Kwesi Santana blood pressure, diastolic 68 mm[Hg] [facility] healths[facility] Santana blood pressure, systolic 107 mm[Hg] [facility] respiratory rate E&M 18 /min [facility] weight E&M 78.8 [lb_av] Kwesi Montgomery aparicio height E&M 63 [in_i] [facility] aparicio Body Mass Index (Ratio) 14.17 kg/m2 Dante Marcial MD blood pressure, cuff size small Ke rri Aubreyuenegerardo blood pressure, diastolic 90 mm[Hg] Ke rri Gruenenfeldalban blood pressure, systolic 146 mm[Hg] Letty ri Domitila oxygen saturation, oximetry 93 % Janey Domitila respiratory rate E&M 16 /min Janey nieto pulse rate 69 /min Janey Raghav er weight E&M 80 [lb_av] Janey Noblenesusi castilloer height E&M 63 [in_i] Janey Nbolenenfflorencia er Body Mass Index (Ratio) 14.52 kg/m2 Dante Marcial MD blood pressure, cuff size small Ke rri Aubreyueneamiraeldalban blood pressure, diastolic 80 mm[Hg] Ke rri Aubreyueneamiraeldalban blood pressure, systolic 102 mm[Hg] Letty Cabralesleonela oxygen saturation, oximetry 95 % Janey Burgoschristelamiraleonela respiratory rate E&M 16 /min Janey Brown deuceelielder pulse rate 81 /min Janey Avilez lder weight E&M 82 [lb_av] Janey Dickeynenfe [facility] height E&M 63 [in_i] Janey Cabralese [facility] Body Mass Index (Ratio) 15.59 kg/m2 Dnate Marcial MD blood pressure, diastolic 79 mm[Hg] Cy ntpaken Grant blood pressure, systolic 133 mm[Hg] Christal marek Grant pulse rate 79 /min Aurora Campbel l oxygen saturation, oximetry 96 % Aurora Grant respiratory rate E&M 16 /min Aurora Grant weight E&M 88 [lb_av] Aurora Campbel l blood pressure, cuff size regular Cy ntleken Grant height E&M 63 [in_i] Aurora Campbel l Body Mass Index (Ratio) 15.41 kg/m2 Dante Marcial MD pulse rate 69 /min Kya Block blood pressure, diastolic 70 mm[Hg] Br ittany Block blood pressure, systolic 140 mm[Hg] Margaux ttany Block oxygen saturation, oximetry 94 % Kya Block weight E&M 87 [lb_av] Kya Block blood pressure, resting Yes Brit john Block respiratory rate E&M 16 /min Brittan y Block height E&M 63 [in_i] Kya Roman Body Mass Index (Ratio) 15.06 kg/m2 Dante Marcial MD blood pressure, cuff size regular Cy brannon Grant blood pressure, diastolic 62 mm[Hg] Cy ntzafar Grant blood pressure, systolic 97 mm[Hg] Christal marek Grant respiratory rate E&M 16 /min Auroramarek Grant oxygen saturation, oximetry 93 % Aurora Grant pulse rate 90 /min Aurora Charliebel l weight E&M 85 [lb_av] Aurora Charliebel l height E&M 63 [in_i] Aurora Campbel l Body Mass Index (Ratio) 15.94 kg/m2 Dante Marcial MD blood pressure, cuff size regular Cy ntzafar Grant blood pressure, diastolic 70 mm[Hg] Cy ntzafar Grant blood pressure, systolic 114 mm[Hg] Christal marek Grant oxygen saturation, oximetry 96 % Aurora Grant respiratory rate E&M 16 /min Auroramarek Grant pulse rate 85 /min Aurora Charliebel l weight E&M 90 [lb_av] Aurora Charliebel l height E&M 63 [in_i] Aurora Charliebel l Body Mass Index (Ratio) 15.06 kg/m2 Dante Marcial MD blood pressure, cuff size regular Cr corrine Terrell blood pressure, diastolic 70 mm[Hg] Cr corrine Terrell blood pressure, systolic 110 mm[Hg] Kourtney Terrell oxygen saturation, oximetry 95 % Josette Terrell respiratory rate E&M 17 /min Josette Terrell pulse rate 74 /min Josette rizo weight E&M 85 [lb_av] Josette rizo height E&M 63 [in_i] Josette rizo Body Mass Index (Ratio) 15.23 kg/m2 Dante Marcial MD blood pressure, cuff size small Ke rri Gruenenfelder blood pressure, diastolic 90 mm[Hg] Ke rri Gruenenfelder blood pressure, systolic 130 mm[Hg] Ker ri Domitila oxygen saturation, oximetry 95 % Janey Grolesyanenfdenitaer respiratory rate E&M 18 /min Janey G deuceenenfelder pulse rate 71 /min Janey Raghav lder weight E&M 86 [lb_av] Janey Griggye lder height E&M 63 [in_i] Janey Raghav er Body Mass Index (Ratio) 14.88 kg/m2 Dante Marcial MD blood pressure, cuff size regular Ke rri Gruenenfelder blood pressure, diastolic 80 mm[Hg] Ke rri Gruenenfelder blood pressure, systolic 120 mm[Hg] Ker ri Domitila oxygen saturation, oximetry 96 % Janey Grelicia respiratory rate E&M 18 /min Janey G deuceenenfleonela pulse rate 72 /min Janey Raghav lder weight E&M 84 [lb_av] Janey Grolesyaneamirae lder height E&M 63 [in_i] Janey Raghav er Body Mass Index (Ratio) 14.98 kg/m2 Dante Marcial MD blood pressure, diastolic 78 mm[Hg] Magda Robert blood pressure, systolic 153 mm[Hg] Farheen oRbert oxygen saturation, oximetry 95 % Norm oRbert respiratory rate E&M 18 /min Arvin Robert pulse rate 73 /min Norm michael weight E&M 84.6 [lb_av] Norm michael height E&M 63 [in_i] Norm michael Body Mass Index (Ratio) 15.41 kg/m2 Dante Marcial MD blood pressure, diastolic 78 mm[Hg] Magda Robert blood pressure, systolic 141 mm[Hg] Farheen Robert oxygen saturation, oximetry 97 % Norm Robert respiratory rate E&M 18 /min Arvin Robert pulse rate 72 /min Norm michael weight E&M 87.0 [lb_av] Norm michael height E&M 63 [in_i] Norm Oro crissy Body Mass Index (Ratio) 16.65 kg/m2 Dante Marcial MD blood pressure, diastolic 74 mm[Hg] Magda Robert blood pressure, systolic 152 mm[Hg] Farheen Robert oxygen saturation, oximetry 95 % Norm Robert respiratory rate E&M 18 /min Arvin Robert pulse rate 65 /min Norm michael weight E&M 94 [lb_av] Norm michael height E&M 63 [in_i] Norm Oro crissy Body Mass Index (Ratio) 17.18 kg/m2 Dante Marcial MD blood pressure, cuff size regular Ke rri Domitila blood pressure, diastolic 80 mm[Hg] Ke rri Domitila blood pressure, systolic 142 mm[Hg] Letty Ramesh oxygen saturation, oximetry 90 % Janey Ramesh respiratory rate E&M 18 /min Janey nieto pulse rate 72 /min Janey Avilez lder weight E&M 97 [lb_av] Janey Avilez lder height E&M 63 [in_i] Janey Avilez er Body Mass Index (Ratio) 17.00 kg/m2 Dante Marcial MD blood pressure, cuff size small Ke lamar Cabralesleonela blood pressure, diastolic 157 mm[Hg] Ke rri Domitila blood pressure, systolic 186 mm[Hg] Letty Ramesh oxygen saturation, oximetry 94 % Janey Ramesh respiratory rate E&M 18 /min Janey nieto pulse rate 185 /min Janey Avilez er weight E&M 96 [lb_av] Janey Avilez er height E&M 63 [in_i] Janey Avilez [facility] ALLERGIES Allergy Name Onset Date Reaction Criticality Status CODEINE Low Criticality active PCN Low Criticality active RESULTS Date Observation Value Provider Reference Range Interpretation Location urine culture Final report Link[facility] bacteria, urine microscopy None seen Link[facility]ic None seen/Few epithelial cells, urine 0-10 [facility] 0 - 10 RBC, Urine >30 /hpf Link[facility] 0 - 2 Abnormal WBC urine on microscopy 6-10 /hpf [facility] 0 - 5 Abnormal urinalysis, microscopic examination See below: [facility] nitrate, urine Negative [facility] Negative urobilinogen, urine, semiquantitative (dipstick) 2.0 [facility] 0.2-1.0 High bilirubin, urine Negative Link[facility]ic Negative hemoglobin, urine, by dipstick 3+ Link[facility] Negative Abnormal ketones, urine, by test strip Negative Link[facility] Negative glucose, urine 2+ Link[facility] Negative Abnormal protein, urine, semiquantitative (dipstick) Negative Link[facility]ic Negative/Tra ce leukocyte esterase, urine, by dipstick Negative [facility] Negative appearance, urine Clear [facility] Clear urine color Yellow [facility]ic Yellow pH, urine, semiquantitative 5.5 [facility] 5.0-7.5 specific gravity, body fluid 1.020 [facility] 1.005-1.030 free thyroxine index 2.4 [facility] 1.2-4.9 triiodothyronine resin uptake 27 % [facility] 24-39 thyroxine, serum, total 8.9 ug/dL [facility] 4.5-12.0 thyroid stimulating hormone, serum 1.550 u[IU]/mL [facility] 0.450-4.500 alanine aminotransferase (SGPT), serum 8 1/L [facility] 0-32 aspartate aminotransferase (SGOT), serum 16 1/L [facility] 0-40 alkaline phosphatase, serum 90 1/L [facility] 39-117 bilirubin, serum, total 0.5 mg/dL [facility] 0.0-1.2 albumin/globulin ratio, serum 1.3 [facility] 1.2-2.2 globulin, serum 3.0 [facility] 1.5-4.5 albumin, serum 4.0 g/dL [facility] 3.6-4.8 protein, total, serum 7.0 g/dL [facility] 6.0-8.5 calcium, serum 9.9 mg/dL [facility] 8.7-10.3 carbon dioxide, venous blood 27 mmol/L [facility] 18-29 chloride, serum 101 mmol/L [facility] 96-106 potassium, serum 3.7 mmol/L [facility] 3.5-5.2 sodium, serum 147 mmol/L [facility] 134-144 High urea nitrogen/creatinine ratio, serum 18 [facility] 12-28 eGFR if 83 mL/min/{1.7 3_m2} [facility]ic >59 eGFR if not 72 mL/min/{1.7 3_m2} [facility]ic >59 creatinine, serum 0.83 mg/dL [facility] 0.57-1.00 urea nitrogen, blood 15 mg/dL Link[facility]ic 8-27 blood glucose, random 81 mg/dL [facility] 65-99 HISTORY OF MEDICATION USE Medication Status Instructions Dates Provider Indications Com ments magnesium oxide 400 mg (241.3 mg magnesium) tablet active Take 1 tablet by mouth once daily Janey Ramesh Xarelto 15 mg tablet active Take 1 tablet by mouth once daily Alyx Cortez Aldactone 25 mg tablet active Take 1 tablet by mouth once a day Archie Marcial MD Sotalol AF 80 mg tablet active Take 1 tablet by mouth twice a day Take 1 tablet by mouth twice daily Mare Shabazz Sotalol AF 80 mg tablet active Take 1 tablet by mouth twice daily Mare Shabazz magnesium oxide 400 mg magnesium tablet completed Take 1 tablet by mouth once a day - Janey Hurley Ellipta 100-62.5-25 mcg blister with device active Karla Rea NP Cardizem CD 120 mg capsule,extended release 24hr active Take 1 capsule by mouth once a day Archie Marcial MD Sotalol AF 80 mg tablet completed Take 1/2 tablet in am 1 tab in pm - Alondra Hyde Cardizem CD 120 mg capsule,extended release 24hr completed Take 1 capsule by mouth once a day - Yareli Agustin NP Xarelto 15 mg tablet completed Take 1 tablet by mouth once daily - Archie Marcial MD CALCIUM SOFT CHEWS 500-1000-40 MG-UNT-MCG CHEW active Kwesi Santana Macrobid 100 mg capsule completed Take as directed - Janey Ramesh LOSARTAN POTASSIUM 25 MG ORAL TABLET completed Take one tablet daily - Archie Marcial MD AUGMENTIN 250-62.5 MG/5ML ORAL SUSPENSION RECONSTITUTED completed take as directed - Janey Ramesh folic acid 400 mcg tablet completed Take 1 tablet once a week - Karla Rea NP methotrexate sodium 2.5 mg tablet completed Take 3 tablet once a week - Karla Rea NP Anoro Ellipta 62.5-25 mcg/actuation blister with device completed as directed - Karla Rea NP REMERON 15 MG ORAL TABLET completed 1 tab po qhs - Norm Robert Sotalol AF 80 mg tablet completed Take one half tablet in the morning and one full tablet at night - Chastity Kevin Ventolin HFA 90 mcg/actuation HFA aerosol inhaler active 2 puff every four to six hours Janey Ramesh METOPROLOL SUCCINATE ER 50 MG ORAL TABLET EXTENDED RELEASE 24 HOUR completed one tab. daily - Janey Ramesh Pravachol 20 mg tablet active Take 1 once a day Janey Ramesh LOSARTAN POTASSIUM 25 MG ORAL TABLET completed Take one tablet daily - Kya cifuentes Norvasc Xarelto 20 mg tablet completed Take 1 tablet by mouth once a day - Oscar Almazan SOCIAL HISTORY Date Observation Value Provider Underweight yes Archie Marcial MD social history E&M S moking History: Ruthy catherine is a former smoker. Archie Marcial MD social history reviewed E&M revi ewed - no changes required Archie Marcial MD seatbelt usage 100 % Chiquita Terrell exercise type housework Chiquita Terrell physical exercise, f requency, days per week 5 /wk Chiquita Terrell caffeine use, averag e drinks per day 2 /d Chiquita Terrell smoking, year quit 2016 Chiquita Jose iams number of years as a smoker 50 a Chiquita Terrell smoking history, tot al pack/day 3 a day Chiquita Terrell cigarette use yes Chiquita Terrell smoking status Former smoker Chiquita rizo Underweight yes Archie Marcial MD drug use no Archie Marcial MD alcohol use no Archie Marcial MD social history reviewed E&M revi ewed - no changes required Archie Marcial MD social history E&M S moking History: Ruthy catherine is a former smoker. Archie Marcial MD seatbelt usage 100 % Danita wang exercise type housework Danita barrera physical exercise, f requency, days per week 5 /wk Danita Jhaveri caffeine use, averag e drinks per day 2 /d Danita Jhaveri smoking, year quit 2016 Danita Jhaveri number of years as a smoker 50 a Danita Jhaveri smoking history, tot al pack/day 3 a day Danita Jhaveri cigarette use yes Danita barrera smoking status Former smoker Danita sims Underweight yes Archie Marcial MD seatbelt usage 100 % Janey Laz leigh exercise type housework Janey Burgoschristelamira leonela physical exercise, f requency, days per week 5 /wk Janey Domitila caffeine use, averag e drinks per day 2 /d Janey Domitila smoking, year quit 2017 Janey Wilson sylvester number of years as a smoker 50 a Janey Domitila smoking history, tot al pack/day 3 a day Janey Domitila cigarette use yes Janeyevan gipson smoking status Former smoker Janey carrillo Underweight yes Archie Marcial MD social history E&M S moking History: Ruthy catherine is a former smoker. Archie Marcial MD social history reviewed E&M revi ewed - no changes required Archie Marcial MD seatbelt usage 100 % Archie Marcial MD exercise type housework Archie Laura physical exercise, f requency, days per week 5 /wk Archie Marcial MD caffeine use, averag e drinks per day 2 /d Archie Marcial MD smoking, year quit 2016 Archie cabrera MD number of years as a smoker 50 a Archie Marcial MD smoking history, tot al pack/day 3 a day Archie Marcial MD cigarette use yes Archie Laura smoking status Former smoker Archie Marcial MD Underweight yes Archie Marcial MD seatbelt usage 100 % Archie Marcial MD exercise type housework Archie Koch D physical exercise, f requency, days per week 5 /wk Archie Marcial MD caffeine use, averag e drinks per day 2 /d Archie Marcial MD smoking, year quit 2016 Archie cabrera MD number of years as a smoker 50 a Archie Marcial MD smoking history, tot al pack/day 3 a day Archie Marcial MD smoking status Former smoker Archie Marcial MD social history reviewed E&M revi ewed - no changes required Archie Marcial MD social history E&M S moking History: Ruthy catherine is a former smoker. Archie Marcial MD cigarette use yes Bryant rizo Underweight yes Archie Marcial MD social history E&M S moking History: Ruthy catherine is a former smoker. Archie Marcial MD social history reviewed E&M revi ewed - no changes required Archie Marcial MD seatbelt usage 100 % Janey leigh exercise type housework Janey gipson physical exercise, f requency, days per week 5 /wk Janey Ramesh caffeine use, averag e drinks per day 2 /d Janey Ramesh smoking, year quit 2016 Janey phan number of years as a smoker 50 a Janey Ramesh smoking history, tot al pack/day 3 a day Janey Ramesh cigarette use yes Janey gipson smoking status Former smoker Janey carrillo Underweight yes Archie Marcial MD social history reviewed E&M revi ewed - no changes required Archie Marcial MD social history E&M S moking History: Ruthy catherine is a former smoker. Archie Marcial MD seatbelt usage 100 % Kwesi Derik ricardomarkus exercise type housework Kwesi hensley physical exercise, f requency, days per week 5 /wk Kwesi Max caffeine use, averag e drinks per day 2 /d Kwesi Santana smoking, year quit 2017 Willieemersonivana rogers Max number of years as a smoker 50 a Kwesi Max smoking history, tot al pack/day 3 a day Yogiken Santana cigarette use yes Willieemersonrudy hensley smoking status Former smoker Williehosea Jackelyn curry Underweight yes Archie Marcial MD drug use no Archie Marcial MD alcohol use no Archie Marcial MD social history E&M S moking History: Ruthy catherine is a former smoker. Archie Marcial MD social history reviewed E&M revi ewed - no changes required Arcihe Marcial MD cigarette use yes Janey gipson smoking status Former smoker Janey carrillo Underweight yes Archie Marcial MD social history E&M S moking History: P florin is a former smoker. Archie Marcial MD social history reviewed E&M revi ewed - no changes required Archie Marcial MD seatbelt usage 100 % Janey leigh exercise type housework Janey gipson physical exercise, f requency, days per week 5 /wk Janey Cabralesleonela caffeine use, averag e drinks per day 2 /d Janey Cabralesleonela smoking, year quit 2017 Janey pughalban number of years as a smoker 50 a Janey Cabralesdenitaalban smoking history, tot al pack/day 3 a day Janey Cabralesleonela cigarette use yes Janey gipson smoking status Former smoker Janey Curiel gerardo Underweight yes Archie Marcial MD drug use no Archie Marcial MD alcohol use no Archie Marcial MD social history E&M S moking History: Ruthy catherine is a former smoker. Archie Marcial MD social history reviewed E&M revi ewed - no changes required Archie Marcial MD seatbelt usage 100 % Aurora velez exercise type housework Aurora perry physical exercise, f requency, days per week 5 /wk Aurora Grant caffeine use, averag e drinks per day 2 /d Aurora Grant smoking, year quit 2016 Aurora guerrero number of years as a smoker 50 a Aurora Grant smoking history, tot al pack/day 3 a day Aurora Grant cigarette use yes Aurora perry smoking status Former smoker Aurora wagner Underweight yes Archie Marcial MD social history reviewed E&M revi ewed - no changes required Archie Marcial MD seatbelt usage 100 % Kya Bloc k exercise type housework Kya Block physical exercise, f requency, days per week 5 /wk Kya Block caffeine use, averag e drinks per day 2 /d Kya Block smoking, year quit 2017 Kya Owens number of years as a smoker 50 a Kya Owens smoking history, tot al pack/day 3 a day Kya Owens cigarette use yes Kya Owens smoking status Former smoker Kya Salazar jose maria Underweight yes Archie Marcial MD drug use no Archie Marcial MD alcohol use no Archie Marcial MD social history E&M S moking History: P atient is a former smoker. Archie Marcial MD social history reviewed E&M revi ewed - no changes required Archie Marcial MD seatbelt usage 100 % Aurora velez exercise type housework Aurora perry physical exercise, f requency, days per week 5 /wk Aurora Grant caffeine use, averag e drinks per day 2 /d Aurora Grant smoking, year quit 2016 Aurora guerrero number of years as a smoker 50 a Aurora Grant smoking history, tot al pack/day 3 a day Aurora Grant cigarette use yes Aurora perry smoking status Former smoker Aurora wagner Underweight yes Archie Marcial MD drug use no Archie Marcial MD alcohol use no Archie Marcial MD social history E&M S moking History: P florin is a former smoker. Archie Marcial MD social history reviewed E&M revi ewed - no changes required Archie Marcial MD seatbelt usage 100 % Aurora velez exercise type housework Aurora perry physical exercise, f requency, days per week 5 /wk Aurora Grant caffeine use, averag e drinks per day 2 /d Aurora Grant smoking, year quit 2017 Aurora Jackelyn guerrero number of years as a smoker 50 a Aurora Grant smoking history, tot al pack/day 3 a day Aurora Grant cigarette use yes Aurora Lesley perry smoking status Former smoker Aurora Charlie wagner Underweight yes Archie Marcial MD social history E&M S moking History: Ruthy catherine is a former smoker. Archie Marcial MD social history reviewed E&M revi ewed - no changes required Archie Marcial MD cigarette use yes Josette Stevens ms smoking status Former smoker Josette Garcia ia Underweight yes Archie Marcial MD social history E&M S moking History: Ruthy catherine is a former smoker. Archie Marcial MD social history reviewed E&M revi ewed - no changes required Archie Marcial MD seatbelt usage 100 % Janey leigh exercise type housework Janey gipson physical exercise, f requency, days per week 5 /wk Janey Ramesh alcohol use no Janey duque caffeine use, averag e drinks per day 2 /d Janey Ramesh smoking, year quit 2016 Janey phan number of years as a smoker 50 a Janey Ramesh smoking history, tot al pack/day 3 a day Janey Ramesh cigarette use yes Janey gipson smoking status Former smoker Archie Marcial MD seatbelt usage 100 % Zabrina wolfe exercise type housework Zabrina phoenix physical exercise, f requency, days per week 5 /wk Zabrina Taylor alcohol use no Zabrina Salinas r caffeine use, averag e drinks per day 2 /d Zabrina Taylor smoking, year quit 2017 Zabrina Eubanksander number of years as a smoker 50 a Zabrina Taylor smoking history, tot al pack/day 3 a day Zabrina Taylor smoking status Former smoker Zabrina riverar cigarette use yes Zabrina Velázquez er caffeine use, averag e drinks per day 2 /d Georgia Aguilarirez exercise type housework [facility] physical exercise, f requency, days per week 5 /wk [facility] usage 100 % Zabrina wolfe smoking, year quit 2016 Zabrina Cabral cooper number of years as a smoker 50 a Zabrina Taylor smoking history, tot al pack/day 6 a day Zabrina Taylor smoking status Former smoker Zabrina mcgraw cigarette use yes Zabrina Velázquez alban alcohol use no Zabrina Salinas r Underweight yes Archie Marcial MD social history E&M S moking History: Ruthy catherine is a former smoker. Archie Marcial MD social history reviewed E&M revi ewed - no changes required Archie Marcial MD alcohol use no Janey duque smoking, year quit 2017 Janey phan number of years as a smoker 50 a Janey Ramesh smoking history, tot al pack/day 6 a day Janey Ramesh cigarette use yes Janey gipson smoking status Former smoker Archie Marcial MD Underweight yes Archie Marcial MD social history E&M S moking History: Ruthy catherine is a former smoker. Archie Marcial MD social history reviewed E&M revi ewed - no changes required Archie Marcial MD alcohol use no Norm metcalfon smoking, year quit 2017 Norm Robert number of years as a smoker 50 a Norm Robert smoking history, tot al pack/day 1.5 ppd NormPatricia Millerenson cigarette use yes Norm Paul anderson smoking status Former smoker Norm St vasquezson Underweight yes Archie Marcial MD alcohol use no Archie Marcial MD social history E&M S moking History: Ruthy catherine is a former smoker. Archie Marcial MD smoking status Former smoker Archie Marcial MD social history reviewed E&M revi ewed - no changes required Archie Marcial MD Underweight yes Archie Marcial MD quit smoking, stage quit Archie zheng MD social history reviewed E&M revi ewed - no changes required Archie Marcial MD smoking, year quit 2016 Norm Robert number of years as a smoker 50 a Norm Millerenson smoking history, tot al pack/day 1.5 ppd Norm Robert cigarette use yes Norm Paul anderson smoking status Former smoker Norm Le Underweight yes Archie Marcial MD social history reviewed E&M revi ewed - no changes required Archie Marcial MD smoking, year quit 2016 Janey phan number of years as a smoker 50 a Janey Ramesh smoking history, tot al pack/day 1.5 ppd Janey Ramesh cigarette use yes Janey gipson smoking status Former smoker Janeyevan carrillo Underweight yes Archie Marcial MD number of grandchildren Archie Marcial MD U kathy Marcial MD number of years as a smoker 50 a Janey Domitila smoking history, tot al pack/day 1.5 ppd Janey Domitila smoking, year quit 2016 Janey Wilson sylevster cigarette use yes Janey Cabrales [facility] smoking status Former smoker Janey Burgosolesyaprakash rosalie FAMILY HISTORY Family Member Condition Mother Negative FH of Coron ephraim Artery Disease Father Family History of Owens dden Cardiac : Father Family History of Hy pertension: Father Family History of Hy perlipidemia: Father Family History of CV A or Stroke: INSURANCE PROVIDERS Payer name Policy type / Coverage type Ida red green party ID [place] Medicaid [id number] [place] MED[place] Medicare 3000 [id number] ADVANCE DIRECTIVES Name Date DISCUSSED - NO DECISION MADE TREATMENT PLAN Date Name Performer [id number],S,S ystolic BP was 116 today P rior BP: 141/70 (08/04/2022) Labs Reviewed: C reat: 0.83 (12/15/2017) H er updated medication list for this problem includes: Aldactone 25 Mg Tablet (Spironolactone) ..... Take 1 tablet by mouth once a day Sotalol Af 80 Mg Tablet (Sotalol) ..... Take 1 tablet by mouth twice daily Sotalol Af 80 Mg Tablet (Sotalol) ..... Take 1 tablet by mouth twice a day take 1 tablet by mouth twice daily Cardizem Cd 120 Mg Capsule,extended Release 24hr (Diltiazem hcl) ..... Take 1 capsule by mouth once a day Archie Marcial MD [id number],S,S he has to continue the xarelto. H er updated medication list for this problem includes: Sotalol Af 80 Mg Tablet (Sotalol) ..... Take 1 tablet by mouth twice daily Sotalol Af 80 Mg Tablet (Sotalol) ..... Take 1 tablet by mouth twice a day take 1 tablet by mouth twice daily Archie Marcial MD [id number],C, F ound on CT chest per pulmonogist Archie Marcial MD [id number],S, Archie Marcial MD [id number],C,H er last episode was in April and since that time she has been okay on her Sotalol. If it becomes more frequent we can send her for consider for Ablation or start her on Tikosyn especially since her QTC on the last one was 470 Archie Marcial MD [id number],C, B P today: 141/70 P rior BP: 162/83 (05/05/2022) Labs Reviewed: C reat: 0.83 (12/15/2017) Her updated medication list for this problem includes: Sotalol Af 80 Mg Tablet (Sotalol) ..... Take 1 tablet by mouth twice daily Sotalol Af 80 Mg Tablet (Sotalol) ..... Take 1 tablet by mouth twice a day take 1 tablet by mouth twice daily Cardizem Cd 120 Mg Capsule,extended Release 24hr (Diltiazem hcl) ..... Take 1 capsule by mouth once a day Archie Marcial MD [id number],C, B P today: 162/83 P rior BP: 149/76 (11/18/2021) Labs Reviewed: C reat: 0.83 (12/15/2017) Her updated medication list for this problem includes: Sotalol Af 80 Mg Tablet (Sotalol) ..... Take 1/2 tablet in am 1 tab in pm Cardizem Cd 120 Mg Capsule,extended Release 24hr (Diltiazem hcl) ..... Take 1 capsule by mouth once a day Karla Rea NP [id number],C, pt presented to [facility] 05/01 with palpitations. pt was found to be in AFIB RVR and UTI. pt ended up getting cardizem bolus with some improvement of HR, but after several hrs was still in AFIB 100's. pt was given option of being admitted or discharged, so she went home and took her regular dose of sotolol and went to bed. she state when she woke at 4am she was back in regular rhythm. pt denies any associated vomiting or dizziness 'like usually when i go back in AFIB.' this is the 3rd time back in AFIB, all being associated with UTI. pt reports chronic UTIs and renal calculi. today pt is back in SB 53. remains on OAC xarelto. attempted telesentry monitor in November, but pt states that 'it didn't work' Her updated medication list for this problem includes: Sotalol Af 80 Mg Tablet (Sotalol) ..... Take 1 tablet by mouth twice daily recommend following with urology re: recurrent UTIs and renal calculi given that UTI seem to be precipitaing factor of pt going back into AFIB will add magnesium oxide 400mg daily Karla Rea NP [id number],B, Archie Marcial MD [id number],C,e levated BP which she states that it could be do walking. B P today: 160/100 P rior BP: 124/82 (04/26/2021) Labs Reviewed: C reat: 0.83 (12/15/2017) W ill get ambulatory BP and take Cadizem 120 mg daily. Archie Marcial MD [id number],B,W ent into Afib about 3 weeks ago. seem to be doing better overall since then. It seems to be triggered when she gets a UTI. Archie Marcial MD [id number],S, Archie Marcial MD [id number],B, N o new SOB. Archie Marcial MD [id number],S, B P today: 124/82 P rior BP: 107/68 (03/15/2021) Her updated medication list for this problem includes: Sotalol Af 80 Mg Tablet (Sotalol) ..... Take one half tablet in the morning and one full tablet at night Archie Marcial MD [id number],B, i n SR, continue xarelto and sotalol to keep in SR n o afib no holter 04/2021 Archie Marcial MD [id number],S, Archie Marcial MD [id number],S, Archie Marcial MD [id number],B, B P today: 107/68 P rior BP: 146/90 (12/31/2020) Labs Reviewed: C reat: 0.83 (12/15/2017) Her updated medication list for this problem includes: Sotalol Hcl (af) 80 Mg Oral Tablet (Sotalol hcl af) ..... Take one half tablet in the morning and one full tablet at night Archie Marcial MD [id number],B,i n SR, continue xarelto and sotalol to keep in SR Archie Marcial MD Cardiology:Systolic BP was 116 today P rior BP: 141/70 (08/04/2022) Labs Reviewed: C reat: 0.83 (12/15/2017) H er updated medication list for this problem includes: Aldactone 25 Mg Tablet (Spironolactone) ..... Take 1 tablet by mouth once a day Sotalol Af 80 Mg Tablet (Sotalol) ..... Take 1 tablet by mouth twice daily Sotalol Af 80 Mg Tablet (Sotalol) ..... Take 1 tablet by mouth twice a day take 1 tablet by mouth twice daily Cardizem Cd 120 Mg Capsule,extended Release 24hr (Diltiazem hcl) ..... Take 1 capsule by mouth once a day Archie Marcial MD Cardiology:She has t o continue the xarelto. H er updated medication list for this problem includes: Sotalol Af 80 Mg Tablet (Sotalol) ..... Take 1 tablet by mouth twice daily Sotalol Af 80 Mg Tablet (Sotalol) ..... Take 1 tablet by mouth twice a day take 1 tablet by mouth twice daily Archie Marcial MD Cardiology: F ound on CT chest per pulmonogist Archie Marcial MD Cardiology Archie Marcial MD Cardiology:Her last episode was in April and since that time she has been okay on her Sotalol. If it becomes more frequent we can send her for consider for Ablation or start her on Tikosyn especially since her QTC on the last one was 470 Archie Marcail MD Cardiology: B P today: 141/70 P rior BP: 162/83 (05/05/2022) Labs Reviewed: C reat: 0.83 (12/15/2017) Her updated medication list for this problem includes: Sotalol Af 80 Mg Tablet (Sotalol) ..... Take 1 tablet by mouth twice daily Sotalol Af 80 Mg Tablet (Sotalol) ..... Take 1 tablet by mouth twice a day take 1 tablet by mouth twice daily Cardizem Cd 120 Mg Capsule,extended Release 24hr (Diltiazem hcl) ..... Take 1 capsule by mouth once a day Archie Marcial MD Cardiology: B P today: 162/83 P rior BP: 149/76 (11/18/2021) Labs Reviewed: C reat: 0.83 (12/15/2017) Her updated medication list for this problem includes: Sotalol Af 80 Mg Tablet (Sotalol) ..... Take 1/2 tablet in am 1 tab in pm Cardizem Cd 120 Mg Capsule,extended Release 24hr (Diltiazem hcl) ..... Take 1 capsule by mouth once a day Karla Rea NP Cardiology: pt prese nted to [facility] 05/01 with palpitations. pt was found to be in AFIB RVR and UTI. pt ended up getting cardizem bolus with some improvement of HR, but after several hrs was still in AFIB 100's. pt was given option of being admitted or discharged, so she went home and took her regular dose of sotolol and went to bed. she state when she woke at 4am she was back in regular rhythm. pt denies any associated vomiting or dizziness 'like usually when i go back in AFIB.' this is the 3rd time back in AFIB, all being associated with UTI. pt reports chronic UTIs and renal calculi. today pt is back in SB 53. remains on OAC xarelto. attempted telesentry monitor in November, but pt states that 'it didn't work' Her updated medication list for this problem includes: Sotalol Af 80 Mg Tablet (Sotalol) ..... Take 1 tablet by mouth twice daily recommend following with urology re: recurrent UTIs and renal calculi given that UTI seem to be precipitaing factor of pt going back into AFIB will add magnesium oxide 400mg daily Karla Rea NP Cardiology Archie Marcial MD Cardiology:elevated BP which she states that it could be do walking. B P today: 160/100 P rior BP: 124/82 (04/26/2021) Labs Reviewed: C reat: 0.83 (12/15/2017) W ill get ambulatory BP and take Cadizem 120 mg daily. Archie Marcial MD Cardiology:Went into Afib about 3 weeks ago. seem to be doing better overall since then. It seems to be triggered when she gets a UTI. Archie Marcial MD Cardiology Follow up Archie koch MD Cardiology Follow up : N o new SOB. Archie Marcial MD Cardiology Follow up : B P today: 124/82 P rior BP: 107/68 (03/15/2021) Her updated medication list for this problem includes: Sotalol Af 80 Mg Tablet (Sotalol) ..... Take one half tablet in the morning and one full tablet at night Archie Marcial MD Cardiology Follow up : i n SR, continue xarelto and sotalol to keep in SR n o afib no holter 04/2021 Archie Marcial MD Cardiology Archie Marcial MD Cardiology Archie Marcial MD Cardiology: B P today: 107/68 P rior BP: 146/90 (12/31/2020) Labs Reviewed: C reat: 0.83 (12/15/2017) Her updated medication list for this problem includes: Sotalol Hcl (af) 80 Mg Oral Tablet (Sotalol hcl af) ..... Take one half tablet in the morning and one full tablet at night Archie Marcial MD Cardiology:in SR, co ntinue xarelto and sotalol to keep in SR Archie Marcial MD Cardiology Follow up Archie koch MD Cardiology Follow up : B P today: 146/90 P rior BP: 102/80 (10/26/2020) Labs Reviewed: C reat: 0.83 (12/15/2017) Archie Marcial MD Cardiology Follow up :Per urology Archie Marcial MD Cardiology Follow up :We will decrease her Sotalol to 40mg in the morning and 80mg at night. We previously increased her Sotalol after she came into the ER with Afib and RVR but ever since she has had very poor appetite. Patient benefits greatly from being in SR which is why we are treating her with anti arrhythmics Archie Marcial MD Cardiology Follow up :Will d/c Losartan as we are increasing Sotalol. BP today: 102/80 P rior BP: 133/79 (04/23/2020) Labs Reviewed: C reat: 0.83 (12/15/2017) Archie Marcial MD Cardiology Follow up Archie koch MD Cardiology Follow up :Admitted with RVR in September. Also being treated for a UTI. Regular on exam today. Because this is her second episode on Sotalol, we will increase Sotalol and d/c Losartan (to avoid hypotension). Archie Aniket MD Cardiology follow up :Found on CT chest per pulmonogist Archie Marcial MD Cardiology follow up Archie koch MD Cardiology follow up :Continue Xarelto. Patient is doing well and has not had any further episodes. will obtain another 48-hour holter Archie Marcial MD Cardiology follow up : B P today: 133/79 P rior BP: 140/70 (12/19/2019) Labs Reviewed: C reat: 0.83 (12/15/2017) Archie Marcial MD Cardiology Archie Marcial MD Cardiology Archie Marcial MD Cardiology:continue sotalol and xarelto Archie Marcial MD Cardiology:will rest art losartan 25 mg po qd B P today: 140/70 P rior BP: 97/62 (11/21/2019) Labs Reviewed: C reat: 0.83 (12/15/2017) Archie Marcial MD Cardiology follow up :check a ua as she may have an infection. Archie Marcial MD Cardiology follow up :will ask her to hold her losartan as her bp has been low B P today: 97/62 P rior BP: 114/70 (10/24/2019) Labs Reviewed: C reat: 0.83 (12/15/2017) Archie Marcial MD Cardiology follow up Archie koch MD Cardiology follow up :possibly due to uti w ill check a ua and treat if positive. Archie Marcial MD Cardiology follow up : B P today: 114/70 P rior BP: 110/70 (04/25/2019) Labs Reviewed: C reat: 0.83 (12/15/2017) Archie Marcial MD Cardiology follow up :Continue on Sotalol and Xarelto. Will recheck her echo to make sure LV function is still normal. Archie Marcial MD Cardiology: B P today: 110/70 P rior BP: 130/90 (10/18/2018) Labs Reviewed: C reat: 0.83 (12/15/2017) Archie Marcial MD Cardiology:Well-cont rolled on sotalol 40 mg twice daily. No change in her medications. Archie Marcial MD Cardiology Follow up :per pulmon ologist Archie Marcial MD Cardiology Follow up Archie koch MD Cardiology Follow up Archie koch MD Cardiology Follow up :Regular on exam. Continue Sotalol, Xarelto Archie Marcial MD Cardiology Follow up Archie koch MD Cardiology Follow up Archie koch MD Cardiology Follow up :continues to be in sinus rhythm. Continue Sotalol and Xeralto. Archie Marcial MD Cardiology:May be an ginal equivalent, will check stress test for ischemia. Archie Marcial MD Cardiology:Has had f atigue for several months. Thyroid function was normal. I am going to do a adenosine stress test to rule out ischemia. She has also continued to lose weight and the cause of this is unsure at this time. Archie Marcial MD Cardiology:Undergoing CT lungs i n February 2018. Archie Marcial MD Cardiology:She has h ad some hematuria in October 2017. She did undergo a work up including CT scan that was negative for kidney stones. I do not have a copy of that but apparently no masses were seen. I will continue Xarelto and Sotalol. Archie Marcial MD Cardiology Archie Marcial MD Cardiology:doing wel l on the sotalol n ot sure reason why she is so fatigued. w ill try 30 day monitor now. Archie Marcial MD Cardiology:doing wel l on the sotalol n ot sure reason why she is so fatigued. w ill try 30 day monbitor now. Archie Marcial MD Cardiology:Has recen tly stopped smoking. PET scan showed no sign of malignancy. Archie Marcial MD Cardiology:Rhythm co ntrolled on sotalol 40mg BID and Cardizem. 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 ECG shows sinus rhythm with normal QTc; however, will leave her on 40mg BID because she is well controlled on that dose. Archie Marcial MD Cardiology:Rate cont rolled on sotalol 40mg BID and Cardizem. 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 ECG shows sinus rhythm with normal QTc; however, will leave her on 40mg BID because she is well controlled on that dose. Archie Marcial MD Cardiology Hospital Follow up :Patient has quit smoking. Archie Marcial MD Cardiology Hospital Follow up :Tachycardia has resolved. R ate is 72 today. Will increase Cardizem to 240mg once daily and monitor with EKG in one month at next follow up. Acrhie Marcial MD Cardiology Follow up :Seen on today's EKG. H R in 160s. Patient is currently on Xarelto. W ill schedule her to give her Sotalol tomorrow. Archie Marcial MD Cardiology Follow up :Patient was a former smoker, but has recent quit. Archie Marcial MD Date Name BASIC METABOLIC PANE L W/EGFR Ambulatory BP Holter Monitor 24 Hr Complete Echo Holter Monitor 48 hr UA, complete w/refle x to culture Holter Monitor 24 Hr Complete Echo Holter Monitor 24 Hr Complete Echo STR - Adenosine THYROID PANEL WITH T SH, 3RD GENERATION COMPREHENSIVE METABO LIC PANEL, W/EGFR Mobile Cardiac Tele HISTORY OF PROCEDURES Procedure Date Procedure Name Provider Procedure Notes S tatus Schedule Followup Archie Marcial MD 3 months co mpleted EKG Archie Marcial MD completed EKG Archie Marcial MD completed EKG Archie Marcial MD completed EKG Archie Marcial MD completed Holter, 24 or 48 Archie Marcial MD com pleted Regadenoson, 4 units Archie Marcial MD completed Cardiolite, 2 units Archie Marcial MD completed SPECT Images Hollie Perry MD compl eted Stress EKG Karyn rizo MD completed Mobile Cardiac Telem etry - Tech Archie Marcial MD completed Mobile Cardiac Telem etry - Prof Archie Marcial MD completed SNOMED-CT: 374131505231368 Current Medications Documented Archie Marcial MD completed SNOMED-CT: 49605384 Physical Exam, Performed: Pulse Exam of Foot Archie aMrcial MD completed SNOMED-CT: 763090323458442 Current Medications Documented Archie Marcial MD completed SNOMED-CT: 52666019 Physical Exam, Performed: Pulse Exam of Foot Archie Marcial MD completed EKG Archie Marcial MD completed SNOMED-CT: [id number] Current Medications Documented Archie Marcial MD completed Event Monitor Gabriel Solis MD compl eted
--- OUTSIDE RECORDS SUMMARY | 2024-10-12 16:53 | XMS_ITS ---
Author Organization [facility] Address [address] [address] [place] [address] Care Team Providers Care Browning Processor Name Role Phone Vahe Corey Unavailable [phone] MEDICATIONS Medication SIG (Take, Route, Frequency, Duration) Notes Start Date End Date Status Losartan Potassium 25 MG 1 tablet Orally Once a day for 90 day(s) 01/05/2024 Active Ergocalciferol 1.25 MG (03476 UT) 1 capsule Orally Once a week for 90 day(s) 01/05/2024 09/30/2024 Active Calcitriol 0.25 MCG 1 capsule Orally Onc e a day for 90 day(s) 01/05/2024 09/30/2024 Active Myrbetriq 25 MG 1 tablet Orally Once a day for 90 day(s) 01/05/2024 09/30/2024 Active Encounters Encounter Location Date Provider Diagnosis [facility] [address] [facility] [address] [place] [address] 02/09/2024 Corey Cotter Chronic kidney disea se, stage 3a N18.31 ; Anxiety disorder, unspecified F41.9 ; Chronic fatigue, unspecified R53.82 ; Essential hypertension I10 ; Other proteinuria R80.8 ; Renal osteodystrophy N25.0 and Secondary hyperparathyroidism, not elsewhere classified E21.1 ASSESSMENTS Encounter Date Diagnosis Assessment Notes Treatment Notes Treatment Clinical Notes Section Notes 02/09/2024 Chronic kidney disease, stage 3a (ICD-10 - N18.31) 02/09/2024 Anxiety disorder, unspecified (ICD-10 - F41.9) 02/09/2024 Chronic fatigue, unspecified (ICD-10 - R53.82) 02/09/2024 Essential hypertension (ICD-10 - I10) 02/09/2024 Other proteinuria (ICD-10 - R80.8) 02/09/2024 Renal osteodystrophy (ICD-10 - N25.0) 02/09/2024 Secondary hyperparathyroidism , not elsewhere classified (ICD-10 - E21.1) PLAN OF TREATMENT No Information Progress Notes * Carolyn YEBOAHB:1950 (74 yo F)Acc No.[id number]:02/09/2024 Progress Notes Patient: Sofi YEBOAH Provider: MD NICK, F.A.C.P, F.A.S.N. :1950 Age:73 Y Sex:Female Date:02/09/2024 Address:[address] [place] [address] Subjective: * Chief Complaints: * * Medical History: * Medications: Taking Myrbetriq 25 MG Tablet Extended Release 24 Hour 1 tablet Orally Once a day , stop date 09/30/2024, Taking Ergocalciferol 1.25 MG (91752 UT) Capsule 1 capsule Orally Once a week , stop date 09/30/2024, Taking Calcitriol 0.25 MCG Capsule 1 capsule Orally Once a day , stop date 09/30/2024, Taking Losartan Potassium 25 MG Tablet 1 tablet Orally Once a day Objective: Assessment: * Assessment: 1. Chronic kidney disease, stage 3a - N18.31 (Primary) 2. Anxiety disorder, unspecified - F41.9 3. Chronic fatigue, unspecified - R53.82 4. Essential hypertension - I10 5. Other proteinuria - R80.8 6. Renal osteodystrophy - N25.0 7. Secondary hyperparathyroidism, not elsewhere classified - E21.1 Plan: * Treatment: * Billing Information: * Visit Code: 76084 Office Visit, Est Pt., Level 4. * Procedure Codes: * TRIMMING LINE TECHNICIAN Sign off status: Pending * Provider: MD NICK, Cony.Earnest.C.P, F.A.S.N. Date: 02/09/2024
--- OUTSIDE RECORDS SUMMARY | 2024-10-12 16:53 | XMS_ITS | Patient Health Record ---
Author Organization [facility] Address [address] [place] [address] Care Team Providers Care Health Promotion Specialist Name Role Phone Vahe Corey Unavailable [phone] REASON FOR REFERRAL No Information MEDICATIONS Medication SIG (Take, Route, Frequency, Duration) Notes Start Date End Date Status Losartan Potassium 25 MG 1 tablet Orally Once a day for 90 day(s) 01/05/2024 Active PROBLEMS Problem Type ICD Code Onset Dates Problem Status W/U Status Risk SNOMED Code Notes Problem Secondary hyperparathyroid ism, not elsewhere classified (E21.1) Active confirmed Secondary hyperparathyroidism (13029891) Problem Anxiety disorder, unspecified (F41.9) Active confirmed Anxiety disorde r (966103229) Problem Renal osteodystrophy (N25.0) Active confirmed Renal osteodyst rophy (24444264) Problem Chronic fatigue, unspecified (R53.82) Active confirmed Chronic fatigue syndrome (disorder) (06640826) Problem Other proteinuria (R80.8) Active confirmed Proteinuria (17031671) Problem Essential hypertension (I10) Active confirmed Essential hypertension (57535117) Problem Chronic kidney disease, stage 3 unspecified (N18.30) Active confirmed Chronic kidney disease stage 3 (disorder) (914853438) Problem Chronic kidney disease, stage 3a (N18.31) Active confirmed Chronic kidney disease stage 3A (disorder) (757462969) Encounters Encounter Location Date Provider Diagnosis [facility] [address] [address] 11/24/2023 Corey Cotter Chronic kidney disea se, stage 3a N18.31 ; Anxiety disorder, unspecified F41.9 ; Chronic fatigue, unspecified R53.82 ; Essential hypertension I10 ; Other proteinuria R80.8 ; Renal osteodystrophy N25.0 and Secondary hyperparathyroidism, not elsewhere classified E21.1 [facility] [address] [address] 01/05/2024 Corey Cotter Chronic kidney disea se, stage 3a N18.31 ; Anxiety disorder, unspecified F41.9 ; Chronic fatigue, unspecified R53.82 ; Essential hypertension I10 ; Other proteinuria R80.8 ; Renal osteodystrophy N25.0 and Secondary hyperparathyroidism, not elsewhere classified E21.1 [facility] [address] [place] [address] 02/09/2024 Corey Cotter Chronic kidney disea se, stage 3a N18.31 ; Anxiety disorder, unspecified F41.9 ; Chronic fatigue, unspecified R53.82 ; Essential hypertension I10 ; Other proteinuria R80.8 ; Renal osteodystrophy N25.0 and Secondary hyperparathyroidism, not elsewhere classified E21.1 [facility] [address] [address] 05/17/2024 Corey Cotter Chronic kidney disea se, stage 3 unspecified N18.30 ; Essential hypertension I10 ; Urinary tract infection, site not specified N39.0 ; Anxiety disorder, unspecified F41.9 ; Chronic fatigue, unspecified R53.82 ; Other proteinuria R80.8 ; Renal osteodystrophy N25.0 and Secondary hyperparathyroidism, not elsewhere classified E21.1 [facility] [address] [place] [address] 01/05/2024 Corey Cotter ASSESSMENTS Encounter Date Diagnosis Assessment Notes Treatment Notes Treatment Clinical Notes Section Notes 11/24/2023 Chronic kidney disease, stage 3a (ICD-10 - N18.31) 01/05/2024 Chronic kidney disease, stage 3a (ICD-10 - N18.31) 02/09/2024 Chronic kidney disease, stage 3a (ICD-10 - N18.31) 05/17/2024 Chronic kidney disease, stage 3 unspecified (ICD-10 - N18.30) 05/17/2024 Essential hypertension (ICD-10 - I10) 02/09/2024 Anxiety disorder, unspecified (ICD-10 - F41.9) 01/05/2024 Anxiety disorder, unspecified (ICD-10 - F41.9) 11/24/2023 Anxiety disorder, unspecified (ICD-10 - F41.9) 11/24/2023 Chronic fatigue, unspecified (ICD-10 - R53.82) 01/05/2024 Chronic fatigue, unspecified (ICD-10 - R53.82) 05/17/2024 Urinary tract infection, site not specified (ICD-10 - N39.0) 02/09/2024 Chronic fatigue, unspecified (ICD-10 - R53.82) 01/05/2024 Essential hypertension (ICD-10 - I10) 02/09/2024 Essential hypertension (ICD-10 - I10) 05/17/2024 Anxiety disorder, unspecified (ICD-10 - F41.9) 11/24/2023 Essential hypertension (ICD-10 - I10) 11/24/2023 Other proteinuria (ICD-10 - R80.8) 01/05/2024 Other proteinuria (ICD-10 - R80.8) 02/09/2024 Other proteinuria (ICD-10 - R80.8) 05/17/2024 Chronic fatigue, unspecified (ICD-10 - R53.82) 05/17/2024 Other proteinuria (ICD-10 - R80.8) 01/05/2024 Renal osteodystrophy (ICD-10 - N25.0) 02/09/2024 Renal osteodystrophy (ICD-10 - N25.0) 11/24/2023 Renal osteodystrophy (ICD-10 - N25.0) 11/24/2023 Secondary hyperparathyroidism , not elsewhere classified (ICD-10 - E21.1) 01/05/2024 Secondary hyperparathyroidism , not elsewhere classified (ICD-10 - E21.1) 02/09/2024 Secondary hyperparathyroidism , not elsewhere classified (ICD-10 - E21.1) 05/17/2024 Renal osteodystrophy (ICD-10 - N25.0) 05/17/2024 Secondary hyperparathyroidism , not elsewhere classified (ICD-10 - E21.1) PLAN OF TREATMENT No Information
--- OUTSIDE RECORDS SUMMARY | 2024-10-12 16:53 | XMS_ITS | Data Portability ---
Author Organization [place] - [facility], Main Office Address [address] [place] [address] Care Team Providers Care Chain Maker Hand Name Role Phone SILVER ALLEN Primary Care Provider MICAELASILVER RAMIREZ Referring Provider [phone] COREY GARCIA Partnership Development Manager DEBBI PAZ Director Of Software Development SHELBY JULIO Primary Care Provider PAUL HILL Crop Or Grain Farmer Assessment Encounter Date Assessment Date Assessment LastModified by Organization Details LastModified Time 09/12/2023 09/12/2023 The patient gave verbal consent using TelePhonic services and the consent is documented in the medical record prior to using the service. The patient has been informed of what a TeleMedicine visit is. Patient is located at home. Provider is located at office. Names and roles of persons in addition to the patient and provider participating in telemedicine services include none. The patient had a 10 minute TeleMedicine consultation via phone call to discuss the following: Cscope- has cologuard orders, encouraged her to get this done Mammogram- refuses Dexa- ordered, encouraged WWE- no longer doing 2/2 age Call office if worse, ER if life threatening illness She plans transfer to Dr. Julio She voices understanding of plan and agrees [email or web address] Not available 09/12/2023 12:57:56 02/08/2024 02/08/2024 10/25/2023: A1C 5.7 Gluc 111, BUN 22, Cr 1.18, GFR 45 Not available 02/08/2024 14:13:19 05/23/2024 05/23/2024 10/25/2023: A1C 5.7 Gluc 111, BUN 22, Cr 1.18, GFR 45 05/17/2024: Gluc 105, BUN 21, GFR 47 Not available 05/23/2024 16:31:14 07/30/2024 07/30/2024 10/25/2023: A1C 5.7 Gluc 111, BUN 22, Cr 1.18, GFR 45 05/17/2024: Gluc 105, BUN 21, GFR 47 Not available 07/30/2024 17:16:05 Plan of Treatment Reminders Order Date Submit Date Provider Last Modified By Organization Details Last Modified Time Details Appointments Any 15 2024 04:00P Beatriz gallardo MD Not available Not available Not available Lab vitamin D, 25-hydr oxy, total, serum [address] (Lab), [address] [place], [address], 10/12/2023 12:36:09 lipid panel, serum 2023 024 [facility] (Lab), [address] [place], [address], 10/05/2023 17:55:02 CBC w/ auto diff 2023 024 [facility] (Lab), [address] [place], [address], 10/05/2023 17:09:03 CMP, serum or plasma 2023 024 [facility] (Lab), [address] [place], [address], 10/05/2023 17:55:06 TSH, serum or plasma 2023 024 [facility] (Lab), [address] [place], [address], 10/05/2023 18:21:51 lipid panel, serum 2023 024 [facility] (Lab), [address] [place], [address], 05/17/2024 17:14:40 CBC w/ auto diff 2023 024 [facility] (Lab), [address] [place], [address], 05/17/2024 16:56:32 CMP, serum or plasma 2023 024 [facility] (Lab), [address] [place], [address], 05/17/2024 17:14:51 TSH, serum or plasma 2023 024 [facility] (Lab), [address] [place], [address], 05/17/2024 17:40:49 vitamin D, 25-hydr oxy, total, serum [address] (Lab), [address] [place], [address], 08/19/2024 09:35:45 lipid panel, serum [address] (Lab), [address] [place], [address], 05/23/2024 16:29:16 CBC w/ auto diff [address] (Lab), [address] [place], [address], 05/23/2024 16:29:16 CMP, serum or plasma [address] (Lab), [address] [place], [address], 05/23/2024 16:29:16 TSH, serum or plasma [address] (Lab), [address] [place], [address], 05/23/2024 16:29:16 glycohe moglobi n, total, blood [address] (Lab), [address] [place], [address], 06/26/2024 08:14:13 microal bumin, urine [address] (Lab), [address] [place], [address], 06/26/2024 08:14:22 vitamin D, 25-hydr oxy, total, serum [address] (Lab), [address] [place], [address], 05/23/2024 16:29:15 lipid panel, serum 2023 024 [facility] (Lab), [address] [place], [address], 10/01/2024 13:42:36 CBC w/ auto diff 2023 024 [facility] (Lab), [address] [place], [address], 10/01/2024 13:00:38 CMP, serum or plasma 2023 024 [facility] (Lab), [address] [place], [address], 10/01/2024 13:42:42 TSH, serum or plasma 2023 024 [facility] (Lab), [address] [place], [address], 10/01/2024 13:48:02 glycohe moglobi n, total, blood 2023 024 [facility] (Lab), [address] [place], [address], 10/01/2024 13:43:42 microal bumin, urine 2023 024 [facility] (Lab), [address] [place], [address], 10/01/2024 13:59:39 vitamin D, 25-hydr oxy, total, serum 2023 024 [facility] (Lab), [address] [place], [address], 07/30/2024 17:10:59 Referral pain managem ent referra l 2023 024 [email or web address] [facility], [address], [place], [address], 06/06/2024 08:16:[address] referra l 2023 024 [email or web address] Robert Kennedy MATERIALS CLERK, [address] [facility], [address], [place], [address], 11/02/2023 08:44:21 cardiol ogist referra l 2023 024 [email or web address] Debbi Hanks MD, [address], [address], [place], [address], 11/02/2023 08:44:05 pulmono logist referra l 2023 024 JONO Paz MD, [address], [address], [place], [address], 12/28/2023 15:05:35 pulmono logist referra l 2023 024 [email or web address] Debbi Paz MD, [address] [facility] [address], [place], [address], 08/06/2024 08:17:10 pain managem ent referra l 2023 024 [email or web address] [facility], [address], [address], [place], [address], 08/19/2024 15:46:05 nephrol ogist referra l 2023 024 [email or web address] Corey Garcia MD (Nephrology, [address], [address], [place], [address], 06/12/2024 08:41:[address] referra l 2023 024 [email or web address] Robert Kennedy MATERIALS CLERK, [address] [facility], [address], [place], [address], 06/12/2024 08:41:52 cardiol ogist referra l 2023 024 [email or web address] Debbi Hanks MD, [address] [facility] [address], [place], [address], 06/12/2024 08:41:26 pulmono logist referra l 2023 024 [email or web address] Debbi Paz MD, [address] [facility] [address], [place], [address], 05/23/2024 17:46:02 podiatr ist referra l - Please call patient to schedul e. 2023 024 [email or web address] Ian Cleveland DPM, [address] [facility], [address], [place], [address], 06/24/2024 16:48:55 pain managem ent referra l - Please call patient to schedul e. [email or web address] Michael Starks, [address] [facility] [address], [place], [address], 09/18/2024 10:17:25 nephrol ogist referra l 2023 024 [email or web address] Corey Garcia MD (Nephrology, [address], [address], [place], [address], 05/23/2024 17:42:[address] referra l - Please call patient to schedul e. 2023 024 [email or web address] Henry Naranjo, [address] [facility] [facility] [address], [place], [address], 06/24/2024 16:48:41 cardiol ogist referra l 2023 024 [email or web address] Debbi Hanks MD, [address], [address], [place], [address], 05/23/2024 17:41:12 pulmono logist referra l 2023 024 [email or web address] Debbi Paz MD, [address], [address], [place], [address], 07/31/2024 18:07:15 nephrol ogist referra l 2023 024 [email or web address] Corey Garcia MD (Nephrology, [address], [address], [place], [address], 07/31/2024 18:07:16 cardiol ogist referra l 2023 024 [email or web address] Debbi Hanks MD, [address], [address], [place], [address], 07/31/2024 18:07:[address] referra l - Please call patient to schedul e. 2023 024 Henry Naranjo, [address] [facility], [address], [place], [address], 07/31/2024 18:08:05 podiatr ist referra l - Please call patient to keyur bangura 2023 024 [email or web address] Ian Cleveland DPM, [address] [facility], [address], [place], [address], 07/31/2024 18:08:06 pain managem ent referra l 2023 024 [email or web address] [facility], [address], [place], [address], 07/31/2024 18:08:06 Procedures None recorde d. Surgeries None recorde d. Imaging DEXA, axial skeleto n [address], [facility] [address], [address], 04/17/2024 09:07:29 DEXA, axial skeleto n [address], [facility] [address], [address], 08/06/2024 08:16:40 DEXA, axial skeleto n 2023 024 [facility], [facility] [address], [address], 05/23/2024 16:35:56 DEXA, axial skeleto n [address], [facility] [address], [address], 07/31/2024 19:17:17 Medication Orders Cipro 500 mg tablet 2023 024 [email or web address] [facility] [address], [address] [facility], [place], [address], 05/23/2024 16:04:44 Breztri Aerosph ere 160 mcg-9mc g-4.8mc g/actua tion HFA aerosol inhaler 2023 024 preet salgado [facility] [address], [address] [place], [address], 05/23/2024 16:29:05 meclizi ne 12.5 mg tablet 2023 024 [facility] [address], [address] [place], [address], 07/30/2024 17:15:41 Patient TargetsNo targets recorded. Patient Instructions Encounter Date Encounter Id Patient Instructions Last Modified By Organization Details Last Modified Time 09/12/2023 [id number] Due to the COVID -19 (Novel Coronavirus) pandemic, it is within this context (and with the understanding that this method of patient encounter is in the patient s best interest as well as the health and safety of other patients and the public) that telehealth is being provided for this patient encounter rather than a cake-uh-ejsk visit. This patient encounter is appropriate at this time. This patient has been advised of the potential risks and limitations of this mode of treatment (including, but not limited to, the absence of in-person examination) and has agreed to be treated in a remote fashion despite these risks. Any and all of the patient s/patient s family s questions on this issue have been answered, and I have made no promises or guarantees to the patient. The patient has also been advised to contact this office for worsening conditions or problems, and seek emergency medical treatment and/or call 911 if the patient deems either necessary. HPI and/or vitals, if listed, were provided by the patient. [email or web address] Not available 09/12/2023 12:37:18 05/23/2024 [id number] diabetic eye exam* [email or web address] Not avail able 05/23/2024 16:29:54 07/30/2024 [id number] dementia rating scale-2* [email or web address] 2 Not available 08/19/2024 09:47:15 alcohol misuse* [email or web address] 2 Not available 08/19/2024 09:47:15 depression screening* seamusa 2 Not available 08/19/2024 09:47:15 Timed Up and Go test (TUG)* arun 2 Not available 08/19/2024 09:47:15 multi-dimensiona l health assessment questionnaire* [email or web address] Not available 07/30/2024 17:20:14 diabetic eye exam* [email or web address] Not availa ble 07/30/2024 17:11:01 Personalized [facility] Plan and Screening Recommendations Advance Directives - Do you have one? Yes Advance Directives - Do we have your advance directive on file in your health record? No, please bring in a copy at your earliest convenience Primary Prevention/Interven tion (prevents or decreases the chance of common diseases from occurring) Smoking Risk: Non Smoker Alcohol Misuse Screening: Negative Weight: Appropriate Physical activity: Need more exercise/physical activity decrease sitting time to no more than 5hr/day Nutrition: Good Average Fall Risk (screened today): Low Intermediate Refer to attached handout Preventing Falls: After your Visit Recommend regular use of cane or walker Vaccines Pneumococcal: Ordered Recommended today Recommended today, but you have declined No further needed Influenza: Chronic Disease Risks Stroke: Low Risk Intermediate Risk I have no recommendations Act sherif diagnosis, Continue current treatment plan Heart Attack: Low risk Intermediate Risk I have no recommendations Act sherif diagnosis, Continue current treatment plan Clogging of the Arteries: Low risk Intermediate Risk I have no recommendations Act sherif diagnosis, Continue current treatment plan Diabetes: Low Risk I have no recommendations Secondary Prevention/Interven tion (detects treatable diseases before they may cause symptoms, disability, or ) Breast Cancer Screening with mammogram: No screening necessary Cervical/Uterine/Ov beth Cancer Screening: No screening necessary Osteoporosis Screening: No screening necessary Date Screening Last Performed: Colon Cancer Screening: Colonoscopy Date Screening Last Performed: Eye Disease Screening: Ordered Recommended today Dementia Risk: Low I have no recommendations Depression Screening: Negative [email or web address] Not available 07/31/2024 09:26:57 Reason for Referral Pain Management Referral for Postherpetic neuralgia Referring Physician: Silver Allen, Internal Medicine, Encounter Date: 09/12/2023 Crop Or Grain Farmer Referral for Pa roxysmal atrial fibrillation Referring Physician: Shelby Julio Internal Medicine, Encounter Date: 10/05/2023 Urologist Referral for Urina ry incontinence Referring Physician: Kenzie Garcias, Encounter Date: 10/05/2023 Director Of Software Development Referral for C hronic obstructive pulmonary disease Referring Physician: Shelby uJlio Internal Medicine, Encounter Date: 10/05/2023 Crop Or Grain Farmer Referral for Pa roxysmal atrial fibrillation Referring Physician: Kenzie Garcias Medicine, Encounter Date: 02/08/2024 Urologist Referral for Urina ry incontinence Referring Physician: Kenzie Garcias, Encounter Date: 02/08/2024 Director Of Software Development Referral for C hronic obstructive pulmonary disease Referring Physician: Kenzie Garcias, Encounter Date: 02/08/2024 Partnership Development Manager Referral for Ch ronic kidney disease Referring Physician: Kenzie Garcias, Encounter Date: 02/08/2024 Pain Management Referral for Chronic pain syndrome Referring Physician: Kenzie Garcias, Encounter Date: 02/08/2024 Crop Or Grain Farmer Referral for Pa roxysmal atrial fibrillation Referring Physician: Kenzie Garcias, Encounter Date: 05/23/2024 Urologist Referral for Urina ry incontinence Please call patient to schedule. Referring Physician: Kenzie Garcias, Encounter Date: 05/23/2024 Director Of Software Development Referral for C hronic obstructive pulmonary disease Referring Physician: Kenzie Garcias, Encounter Date: 05/23/2024 Partnership Development Manager Referral for Ch ronic kidney disease Referring Physician: Kenzie Garcias, Encounter Date: 05/23/2024 Pain Management Referral for Chronic pain syndrome Please call patient to schedule. Referring Physician: Shelby Julio Internal Medicine, Encounter Date: 05/23/2024 Sas Administrator Referral for Hype rglycemia Please call patient to schedule. Referring Physician: Shelby Julio Internal Medicine, Encounter Date: 05/23/2024 Crop Or Grain Farmer Referral for Pa roxysmal atrial fibrillation Referring Physician: Shelby Julio Internal Medicine, Encounter Date: 07/30/2024 Urologist Referral for Urina ry incontinence Please call patient to schedule. Referring Physician: Shelby Julio Internal Medicine, Encounter Date: 07/30/2024 Director Of Software Development Referral for C hronic obstructive pulmonary disease Referring Physician: Shelby Julio Internal Medicine, Encounter Date: 07/30/2024 Partnership Development Manager Referral for Ch ronic kidney disease Referring Physician: Shelby Julio Internal Medicine, Encounter Date: 07/30/2024 Pain Management Referral for Chronic pain syndrome Referring Physician: Shelby Julio Internal Medicine, Encounter Date: 07/30/2024 Sas Administrator Referral for Hype rglycemia Please call patient to schedule. Referring Physician: Shelby Julio [facility], Encounter Date: 07/30/2024 Results Created Date Observation Date Name Description Value Unit Range Abnormal Flag Note LastModifiedBy Organization Detail LastModifiedTime 03/02/20 24 03/02/2024 COLOG UARD cologuard result Cancel led - Order d not applic able Not Available [facility] (Cologuard Orders Only) [address], [place], [address], 03/02/2024 09:41:49 10/05/19 24 10/05/2023 CBC/C OMPLE TE BLD COUNT W/DIF F white blood cells 9.8 x10'3 /uL 4.2-10 .8 Not Available [facility] (Lab) [address] [place], [address], 10/05/2023 17:09:03 10/05/19 24 10/05/2023 CBC/C OMPLE TE BLD COUNT W/DIF F red blood cells 4.43 x10'6 /uL 3.80-5 .20 Not Available [facility] (Lab) [address] [place], [address], 10/05/2023 17:09:03 10/05/19 24 10/05/2023 CBC/C OMPLE TE BLD COUNT W/DIF F hemoglobin 13.9 g/dL 12.0-1 5.6 Not Available [facility] (Lab) [address] [place], [address], 10/05/2023 17:09:03 10/05/19 24 10/05/2023 CBC/C OMPLE TE BLD COUNT W/DIF F hematocrit 43.1 % 35.7-4 5.7 Not Available [facility] (Lab) [address] [place], [address], 10/05/2023 17:09:03 10/05/19 24 10/05/2023 CBC/C OMPLE TE BLD COUNT W/DIF F mean red cell volume 97.3 fL 82.0-9 9.0 Not Available [facility] (Lab) [address] [place], [address], 10/05/2023 17:09:03 10/05/19 24 10/05/2023 CBC/C OMPLE TE BLD COUNT W/DIF F mean red cell hemoglobin 31.4 pg 27.0-3 3.0 Not Available [facility] (Lab) [address] [place], [address], 10/05/2023 17:09:03 10/05/19 24 10/05/2023 CBC/C OMPLE TE BLD COUNT W/DIF F mean RBC HGB concentratio n 32.3 g/dL 31.0-3 6.0 Not Available [facility] (Lab) [address] [place], [address], 10/05/2023 17:09:03 10/05/19 24 10/05/2023 CBC/C OMPLE TE BLD COUNT W/DIF F red cell distribution width 12.1 % 11.8-1 5.5 Not Available [facility] (Lab) [address] [place], [address], 10/05/2023 17:09:03 10/05/19 24 10/05/2023 CBC/C OMPLE TE BLD COUNT W/DIF F platelets 311 x10'3 /uL 150-40 0 Not Available [facility] (Lab) [address] [place], [address], 10/05/2023 17:09:03 10/05/19 24 10/05/2023 CBC/C OMPLE TE BLD COUNT W/DIF F mean platelet volume 10.1 fL 9.0-12 .4 Not Available [facility] (Lab) [address] [place], [address], 10/05/2023 17:09:03 10/05/19 24 10/05/2023 CBC/C OMPLE TE BLD COUNT W/DIF F neutrophils 69.8 % 39.0-7 2.0 Not Available [facility] (Lab) [address] [place], [address], 10/05/2023 17:09:03 10/05/19 24 10/05/2023 CBC/C OMPLE TE BLD COUNT W/DIF F lymphocytes 18.2 % 16.0-4 7.0 Not Available [facility] (Lab) [address] [place], [address], 10/05/2023 17:09:03 10/05/19 24 10/05/2023 CBC/C OMPLE TE BLD COUNT W/DIF F monocytes 7.8 % 5.0-12 .0 Not Available [facility] (Lab) [address] [place], [address], 10/05/2023 17:09:03 10/05/19 24 10/05/2023 CBC/C OMPLE TE BLD COUNT W/DIF F eosinophils 3.2 % 1.0-7. 0 Not Available [facility] (Lab) [address] [place], [address], 10/05/2023 17:09:03 10/05/19 24 10/05/2023 CBC/C OMPLE TE BLD COUNT W/DIF F basophils 0.6 % 0.0-2. 0 Not Available [facility] (Lab) [address] [place], [address], 10/05/2023 17:09:03 10/05/19 24 10/05/2023 CBC/C OMPLE TE BLD COUNT W/DIF F immature granulocytes 0.4 % 0.00-0 .50 Not Available [facility] (Lab) [address] [place], [address], 10/05/2023 17:09:03 10/05/19 24 10/05/2023 CBC/C OMPLE TE BLD COUNT W/DIF F neutrophils, absolute count 6.85 x10'3 /uL 1.5-8. 0 Not Available [facility] (Lab) [address] [place], [address], 10/05/2023 17:09:03 10/05/19 24 10/05/2023 CBC/C OMPLE TE BLD COUNT W/DIF F lymphocytes, absolute count 1.79 x10'3 /uL 1.07-3 .43 Not Available [facility] (Lab) [address] [place], [address], 10/05/2023 17:09:03 10/05/19 24 10/05/2023 CBC/C OMPLE TE BLD COUNT W/DIF F monocytes, absolute count 0.77 x10'3 /uL 0.29-0 .99 Not Available [facility] (Lab) [address] [place], [address], 10/05/2023 17:09:03 10/05/19 24 10/05/2023 CBC/C OMPLE TE BLD COUNT W/DIF F eosinophils, absolute count 0.31 x10'3 /uL 0.02-0 .53 Not Available [facility] (Lab) [address] [place], [address], 10/05/2023 17:09:03 10/05/19 24 10/05/2023 CBC/C OMPLE TE BLD COUNT W/DIF F basophils, absolute count 0.06 x10'3 /uL 0.01-0 .08 Not Available [facility] (Lab) [address] [place], [address], 10/05/2023 17:09:03 10/05/19 24 10/05/2023 CBC/C OMPLE TE BLD COUNT W/DIF F immature granulocytes ,absolute 0.04 x10'3 /uL 0.00-0 .05 Not Available [facility] (Lab) [address] [place], [address], 10/05/2023 17:09:03 10/05/19 24 10/05/2023 CBC/C OMPLE TE BLD COUNT W/DIF F nucleated red blood cells 0.0 % -0 Not Available [facility] (Lab) [address] [place], [address], 10/05/2023 17:09:03 10/05/19 24 10/05/2023 CBC/C OMPLE TE BLD COUNT W/DIF F NRBC# 0.00 x10'3 /uL Not Available [facility] (Lab) [address] [place], [address], 10/05/2023 17:09:03 10/05/19 24 10/05/2023 LIPID PANEL cholesterol 179 mg/dL 140-19 9 NIH KATHERYN NSUS RECOM MENDA TION FOR NAVEED STERO L: ADULT CHILD LOW RISK: <200 <170 BORDE RLINE : <200- 239 ----- HIGH RISK: >240 >200 Not Available [facility] (Lab) [address] [place], [address], 10/05/2023 17:55:02 10/05/19 24 10/05/2023 LIPID PANEL triglyceride s 77 mg/dL 0-150 NIH KATHERYN NSUS REPOR T RECOM MENDA TION FOR TRIGL YCERI SURENDRA: ADULT CHILD LOW RISK: <150 ----- BODER LINE: 150-1 99 ----- HIGH RISK: >200 ----- Not Available [facility] (Lab) [address] [place], [address], 10/05/2023 17:55:02 10/05/19 24 10/05/2023 LIPID PANEL HDL cholesterol 80 mg/dL 40- Not Available [facility] (Lab) [address] [place], [address], 10/05/2023 17:55:02 10/05/19 24 10/05/2023 LIPID PANEL LDL cholesterol, calculated 84 mg/dL 0-130 NIH KATHERYN NSUS REPOR T RECOM MENDA TIONS FOR LDL: ADULT CHILD LOW RISK <130 <110 (OPTI MAL LDL) <100 ----- BORDE RLINE : 130-1 59 ----- HIGH RISK: >160 >130 A TRIGL YCERI DE RESUL T >400 INVAL IDATE S THE CALCU LATIO N FOR LDL FRACT IONAT ION - THE LDL RESUL T WILL NOT BE REPOR NEREIDA. Not Available [facility] (Lab) [address] [place], [address], 10/05/2023 17:55:02 10/05/19 24 10/05/2023 COMPR EHENS SHERIF METAB OLIC PANEL sodium 143 mmol/ L 137-14 5 Not Available [facility] (Lab) [address] [place], [address], 10/05/2023 17:55:06 10/05/19 24 10/05/2023 COMPR EHENS SHERIF METAB OLIC PANEL potassium 3.7 mmol/ L 3.5-5. 1 Not Available [facility] (Lab) [address] [place], [address], 10/05/2023 17:55:06 10/05/19 24 10/05/2023 COMPR EHENS SHERIF METAB OLIC PANEL chloride 104 mmol/ L 98-107 Not Available [facility] (Lab) [address] [place], [address], 10/05/2023 17:55:06 10/05/19 24 10/05/2023 COMPR EHENS SHERIF METAB OLIC PANEL carbon dioxide 30 mmol/ L 22-30 Not Available [facility] (Lab) [address] [place], [address], 10/05/2023 17:55:06 10/05/19 24 10/05/2023 COMPR EHENS SHERIF METAB OLIC PANEL anion gap 12.7 mmol/ L 14-22 low Not Available [facility] (Lab) [address] [place], [address], 10/05/2023 17:55:06 10/05/19 24 10/05/2023 COMPR EHENS SHERIF METAB OLIC PANEL glucose 111 mg/dL 70-99 high Not Available [facility] (Lab) [address] [place], [address], 10/05/2023 17:55:06 10/05/19 24 10/05/2023 COMPR EHENS SHERIF METAB OLIC PANEL BUN 22 mg/dL 8-19 high Not Available [facility] (Lab) [address] [place], [address], 10/05/2023 17:55:06 10/05/19 24 10/05/2023 COMPR EHENS SHERIF METAB OLIC PANEL creatinine 1.18 mg/dL 0.66-1 .25 Not Available [facility] (Lab) [address] [place], [address], 10/05/2023 17:55:06 10/05/19 24 10/05/2023 COMPR EHENS SHERIF METAB OLIC PANEL GFR 45 Refer ence Range : Sevier ge GFR Healt hy Adult : >60 mL/mi n/1.7 3 m2 Chron ic Kidne y Disea se: 15-60 mL/mi n/1.7 3 m2 Kidne y Failu re: <15/m L/min /1.73 m2 www.n iddk. nih.g ov The MDRD study equat ion has not been valid ated in child nayeli <18 years of age; pregn ant women ; the elder ly >85 years of age; or in some racia l or ethni c subgr oups, such as Hisil nics. Outsi de the valid ated fransisco eters , estim ated GFR is less accur ate, requi ring clini elaine judgm ent on a case- by-ca se basis . Clini elaine inter preta tion for other races and ages must be made by the clini sharlene. The MDRD study equat ion has not been valid ated for the evalu ation of serum creat inine relat ed to nutri jorje l statu s or medic ation usage . For perso ns <18 years of age, a pedia tric GFR calcu lator is avail able on the F websi te: https ://reba w.alpa daniel.o rg/pr ofess ional s/kdo qi/gf r_cal culat or Not Available [facility] (Lab) [address] [place], [address], 10/05/2023 17:55:06 10/05/19 24 10/05/2023 COMPR EHENS SHERIF METAB OLIC PANEL alkaline phosphatase 119 U/L 38-126 Not Available [facility] (Lab) [address] [place], [address], 10/05/2023 17:55:06 10/05/19 24 10/05/2023 COMPR EHENS SHERIF METAB OLIC PANEL alanine aminotransfe rase 12 U/L 0-35 Not Available [facility] (Lab) [address] [place], [address], 10/05/2023 17:55:06 10/05/19 24 10/05/2023 COMPR EHENS SHERIF METAB OLIC PANEL aspartate aminotransfe rase 24 U/L 15-37 Not Available [facility] (Lab) [address] [place], [address], 10/05/2023 17:55:06 10/05/19 24 10/05/2023 COMPR EHENS SHERIF METAB OLIC PANEL bilirubin, total 0.90 mg/dL 0.20-1 .30 Not Available [facility] (Lab) [address] [place], [address], 10/05/2023 17:55:06 10/05/19 24 10/05/2023 COMPR EHENS SHERIF METAB OLIC PANEL calcium 10.1 mg/dL 8.4-10 .2 Not Available [facility] (Lab) [address] [place], [address], 10/05/2023 17:55:06 10/05/19 24 10/05/2023 COMPR EHENS SHERIF METAB OLIC PANEL total protein 7.5 g/dL 6.3-8. 2 Not Available [facility] (Lab) [address] [place], [address], 10/05/2023 17:55:06 10/05/19 24 10/05/2023 COMPR EHENS SHERIF METAB OLIC PANEL albumin 4.1 g/dL 3.0-4. 4 Not Available [facility] (Lab) [address] [place], [address], 10/05/2023 17:55:06 10/05/19 24 10/05/2023 COMPR EHENS SHERIF METAB OLIC PANEL globulin 3.4 g/dL 2.6-4. 2 Not Available [facility] (Lab) [address] [place], [address], 10/05/2023 17:55:06 10/05/19 24 10/05/2023 COMPR EHENS SHERIF METAB OLIC PANEL A/G ratio 1.2 ratio 1.0-2. 0 Not Available [facility] (Lab) [address] [place], [address], 10/05/2023 17:55:06 10/05/19 24 10/05/2023 VITAM IN D 25-HY DROXY vd25oh 79.3 NG/mL 30-100 Vitam in D Statu s: Defic ient: <20 ng/mL Insuf ficie nt: 20-29 ng/mL Suffi cient : 30-10 0 ng/mL Not Available [facility] (Lab) [address] [place], [address], 10/05/2023 18:12:03 10/05/19 24 10/05/2023 TSH W/REF KRISTAL FT4 TSH with reflex free T4 0.855 uIU/m L 0.465- 4.680 Not Available [facility] (Lab) [address] [place], [address], 10/05/2023 18:21:51 10/25/19 24 10/25/2023 HEMOG LOBIN A1C HA1C 5.7 % 4.0-6. 0 Diabe bg Scree bhavna Crite aaron: <5.7% Consi stent with absen ce of diabe bg 5.7-6 .4% Consi stent with incre ased risk for diabe bg (pred iabet es) >OR=6 .5% Consi stent with diabe bg REFER ENCE: Diabe bg Care 2016, 39( ppl.1 ):s13 -s22 Not Available [facility] (Lab) [address] [place], [address], 10/25/2023 20:05:34 05/17/20 24 05/17/2024 CBC/C OMPLE TE BLD COUNT W/DIF F white blood cells 6.7 x10'3 /uL 4.2-10 .8 Not Available [facility] (Lab) [address] [place], [address], 05/17/2024 16:56:32 05/17/20 24 05/17/2024 CBC/C OMPLE TE BLD COUNT W/DIF F red blood cells 4.62 x10'6 /uL 3.80-5 .20 Not Available [facility] (Lab) [address] [place], [address], 05/17/2024 16:56:32 05/17/20 24 05/17/2024 CBC/C OMPLE TE BLD COUNT W/DIF F hemoglobin 14.3 g/dL 12.0-1 5.6 Not Available [facility] (Lab) [address] [place], [address], 05/17/2024 16:56:32 05/17/20 24 05/17/2024 CBC/C OMPLE TE BLD COUNT W/DIF F hematocrit 45.5 % 35.7-4 5.7 Not Available [facility] (Lab) [address] [place], [address], 05/17/2024 16:56:32 05/17/20 24 05/17/2024 CBC/C OMPLE TE BLD COUNT W/DIF F mean red cell volume 98.5 fL 82.0-9 9.0 Not Available [facility] (Lab) [address] [place], [address], 05/17/2024 16:56:32 05/17/20 24 05/17/2024 CBC/C OMPLE TE BLD COUNT W/DIF F mean red cell hemoglobin 31.0 pg 27.0-3 3.0 Not Available [facility] (Lab) [address] [place], [address], 05/17/2024 16:56:32 05/17/20 24 05/17/2024 CBC/C OMPLE TE BLD COUNT W/DIF F mean RBC HGB concentratio n 31.4 g/dL 31.0-3 6.0 Not Available [facility] (Lab) [address] [place], [address], 05/17/2024 16:56:32 05/17/20 24 05/17/2024 CBC/C OMPLE TE BLD COUNT W/DIF F red cell distribution width 12.7 % 11.8-1 5.5 Not Available [facility] (Lab) [address] [place], [address], 05/17/2024 16:56:32 05/17/20 24 05/17/2024 CBC/C OMPLE TE BLD COUNT W/DIF F platelets 210 x10'3 /uL 150-40 0 Not Available [facility] (Lab) [address] [place], [address], 05/17/2024 16:56:32 05/17/20 24 05/17/2024 CBC/C OMPLE TE BLD COUNT W/DIF F mean platelet volume 10.7 fL 9.0-12 .4 Not Available [facility] (Lab) [address] [place], [address], 05/17/2024 16:56:32 05/17/20 24 05/17/2024 CBC/C OMPLE TE BLD COUNT W/DIF F neutrophils 71.6 % 39.0-7 2.0 Not Available [facility] (Lab) [address] [place], [address], 05/17/2024 16:56:32 05/17/20 24 05/17/2024 CBC/C OMPLE TE BLD COUNT W/DIF F lymphocytes 15.9 % 16.0-4 7.0 low Not Available [facility] (Lab) [address] [place], [address], 05/17/2024 16:56:32 05/17/20 24 05/17/2024 CBC/C OMPLE TE BLD COUNT W/DIF F monocytes 10.4 % 5.0-12 .0 Not Available [facility] (Lab) [address] [place], [address], 05/17/2024 16:56:32 05/17/20 24 05/17/2024 CBC/C OMPLE TE BLD COUNT W/DIF F eosinophils 1.2 % 1.0-7. 0 Not Available [facility] (Lab) [address] [place], [address], 05/17/2024 16:56:32 05/17/20 24 05/17/2024 CBC/C OMPLE TE BLD COUNT W/DIF F basophils 0.6 % 0.0-2. 0 Not Available [facility] (Lab) [address] [place], [address], 05/17/2024 16:56:32 05/17/20 24 05/17/2024 CBC/C OMPLE TE BLD COUNT W/DIF F immature granulocytes 0.3 % 0.00-0 .50 Not Available [facility] (Lab) [address] [place], [address], 05/17/2024 16:56:32 05/17/20 24 05/17/2024 CBC/C OMPLE TE BLD COUNT W/DIF F neutrophils, absolute count 4.80 x10'3 /uL 1.5-8. 0 Not Available [facility] (Lab) [address] [place], [address], 05/17/2024 16:56:32 05/17/20 24 05/17/2024 CBC/C OMPLE TE BLD COUNT W/DIF F lymphocytes, absolute count 1.07 x10'3 /uL 1.07-3 .43 Not Available [facility] (Lab) [address] [place], [address], 05/17/2024 16:56:32 05/17/20 24 05/17/2024 CBC/C OMPLE TE BLD COUNT W/DIF F monocytes, absolute count 0.70 x10'3 /uL 0.29-0 .99 Not Available [facility] (Lab) [address] [place], [address], 05/17/2024 16:56:32 05/17/20 24 05/17/2024 CBC/C OMPLE TE BLD COUNT W/DIF F eosinophils, absolute count 0.08 x10'3 /uL 0.02-0 .53 Not Available [facility] (Lab) [address] [place], [address], 05/17/2024 16:56:32 05/17/20 24 05/17/2024 CBC/C OMPLE TE BLD COUNT W/DIF F basophils, absolute count 0.04 x10'3 /uL 0.01-0 .08 Not Available [facility] (Lab) [address] [place], [address], 05/17/2024 16:56:32 05/17/20 24 05/17/2024 CBC/C OMPLE TE BLD COUNT W/DIF F immature granulocytes ,absolute 0.02 x10'3 /uL 0.00-0 .05 Not Available [facility] (Lab) [address] [place], [address], 05/17/2024 16:56:32 05/17/20 24 05/17/2024 CBC/C OMPLE TE BLD COUNT W/DIF F nucleated red blood cells 0.0 % -0 Not Available [facility] (Lab) [address] [place], [address], 05/17/2024 16:56:32 05/17/20 24 05/17/2024 CBC/C OMPLE TE BLD COUNT W/DIF F NRBC# 0.00 x10'3 /uL Not Available [facility] (Lab) [address] [place], [address], 05/17/2024 16:56:32 05/17/20 24 05/17/2024 LIPID PANEL cholesterol 159 mg/dL 140-19 9 NIH KATHERYN NSUS RECOM MENDA TION FOR NAVEED STERO L: ADULT CHILD LOW RISK: <200 <170 BORDE RLINE : <200- 239 ----- HIGH RISK: >240 >200 Not Available [facility] (Lab) [address] [place], [address], 05/17/2024 17:14:40 05/17/20 24 05/17/2024 LIPID PANEL triglyceride s 78 mg/dL 0-150 NIH KATHERYN NSUS REPOR T RECOM MENDA TION FOR TRIGL YCERI SURENDRA: ADULT CHILD LOW RISK: <150 ----- BODER LINE: 150-1 99 ----- HIGH RISK: >200 ----- Not Available [facility] (Lab) [address] [place], [address], 05/17/2024 17:14:40 05/17/20 24 05/17/2024 LIPID PANEL HDL cholesterol 82 mg/dL 40- Not Available [facility] (Lab) [address] [place], [address], 05/17/2024 17:14:40 05/17/20 24 05/17/2024 LIPID PANEL LDL cholesterol, calculated 61 mg/dL 0-130 NIH KATHERYN NSUS REPOR T RECOM MENDA TIONS FOR LDL: ADULT CHILD LOW RISK <130 <110 (OPTI MAL LDL) <100 ----- BORDE RLINE : 130-1 59 ----- HIGH RISK: >160 >130 A TRIGL YCERI DE RESUL T >400 INVAL IDATE S THE CALCU LATIO N FOR LDL FRACT IONAT ION - THE LDL RESUL T WILL NOT BE REPOR NEREIDA. Not Available [facility] (Lab) [address] [place], [address], 05/17/2024 17:14:40 05/17/20 24 05/17/2024 COMPR EHENS SHERIF METAB OLIC PANEL sodium 141 mmol/ L 137-14 5 Not Available [facility] (Lab) [address] [place], [address], 05/17/2024 17:14:51 05/17/20 24 05/17/2024 COMPR EHENS SHERIF METAB OLIC PANEL potassium 3.7 mmol/ L 3.5-5. 1 Not Available [facility] (Lab) [address] [place], [address], 05/17/2024 17:14:51 05/17/20 24 05/17/2024 COMPR EHENS SHERIF METAB OLIC PANEL chloride 105 mmol/ L 98-107 Not Available [facility] (Lab) [address] [place], [address], 05/17/2024 17:14:51 05/17/20 24 05/17/2024 COMPR EHENS SHERIF METAB OLIC PANEL carbon dioxide 28 mmol/ L 22-30 Not Available [facility] (Lab) [address] [place], [address], 05/17/2024 17:14:51 05/17/20 24 05/17/2024 COMPR EHENS SHERIF METAB OLIC PANEL anion gap 11.7 mmol/ L 14-22 low Not Available [facility] (Lab) [address] [place], [address], 05/17/2024 17:14:51 05/17/20 24 05/17/2024 COMPR EHENS SHERIF METAB OLIC PANEL glucose 105 mg/dL 70-99 high Not Available [facility] (Lab) [address] [place], [address], 05/17/2024 17:14:51 05/17/20 24 05/17/2024 COMPR EHENS SHERIF METAB OLIC PANEL BUN 21 mg/dL 8-19 high Not Available [facility] (Lab) [address] [place], [address], 05/17/2024 17:14:51 05/17/20 24 05/17/2024 COMPR EHENS SHERIF METAB OLIC PANEL creatinine 1.13 mg/dL 0.66-1 .25 Not Available [facility] (Lab) [address] [place], [address], 05/17/2024 17:14:51 05/17/20 24 05/17/2024 COMPR EHENS SHERIF METAB OLIC PANEL GFR 47 Refer ence Range : Sevier ge GFR Healt hy Adult : >60 mL/mi n/1.7 3 m2 Chron ic Kidne y Disea se: 15-60 mL/mi n/1.7 3 m2 Kidne y Failu re: <15/m L/min /1.73 m2 www.n iddk. nih.g ov The MDRD study equat ion has not been valid ated in child nayeli <18 years of age; pregn ant women ; the elder ly >85 years of age; or in some racia l or ethni c subgr oups, such as [facility] nics. Outsi de the valid ated fransisco eters , estim ated GFR is less accur ate, requi ring clini elaine judgm ent on a case- by-ca se basis . Clini elaine inter preta tion for other races and ages must be made by the clini sharlene. The MDRD study equat ion has not been valid ated for the evalu ation of serum creat inine relat ed to nutri jorje l statu s or medic ation usage . For perso ns <18 years of age, a pedia tric GFR calcu lator is avail able on the [facility] websi te: https ://reba daniel.sally torrez/pr ofess ional s/kdo qi/gf r_cal culat or Not Available [facility] (Lab) [address] [place], [address], 05/17/2024 17:14:51 05/17/20 24 05/17/2024 COMPR EHENS SHERIF METAB OLIC PANEL alkaline phosphatase 89 U/L 38-126 Not Available [facility] (Lab) [address] [place], [address], 05/17/2024 17:14:51 05/17/20 24 05/17/2024 COMPR EHENS SHERIF METAB OLIC PANEL alanine aminotransfe rase 13 U/L 0-35 Not Available [facility] (Lab) [address] [place], [address], 05/17/2024 17:14:51 05/17/20 24 05/17/2024 COMPR EHENS SHERIF METAB OLIC PANEL aspartate aminotransfe rase 26 U/L 15-37 Not Available [facility] (Lab) [address] [place], [address], 05/17/2024 17:14:51 05/17/20 24 05/17/2024 COMPR EHENS SHERIF METAB OLIC PANEL bilirubin, total 0.70 mg/dL 0.20-1 .30 Not Available [facility] (Lab) [address] [place], [address], 05/17/2024 17:14:51 05/17/20 24 05/17/2024 COMPR EHENS SHERIF METAB OLIC PANEL calcium 9.7 mg/dL 8.4-10 .2 Not Available [facility] (Lab) [address] [place], [address], 05/17/2024 17:14:51 05/17/20 24 05/17/2024 COMPR EHENS SHERIF METAB OLIC PANEL total protein 7.3 g/dL 6.3-8. 2 Not Available [facility] (Lab) [address] [place], [address], 05/17/2024 17:14:51 05/17/20 24 05/17/2024 COMPR EHENS SHERIF METAB OLIC PANEL albumin 4.2 g/dL 3.0-4. 4 Not Available [facility] (Lab) [address] [place], [address], 05/17/2024 17:14:51 05/17/20 24 05/17/2024 COMPR EHENS SHERIF METAB OLIC PANEL globulin 3.1 g/dL 2.6-4. 2 Not Available [facility] (Lab) [address] [place], [address], 05/17/2024 17:14:51 05/17/20 24 05/17/2024 COMPR EHENS SHERIF METAB OLIC PANEL A/G ratio 1.4 ratio 1.0-2. 0 Not Available [facility] (Lab) [address] [place], [address], 05/17/2024 17:14:51 05/17/20 24 05/17/2024 TSH W/REF KRISTAL FT4 TSH with reflex free T4 1.060 uIU/m L 0.465- 4.680 Not Available [facility] (Lab) [address] [place], [address], 05/17/2024 17:40:49 05/17/20 24 05/17/2024 VITAM IN D 25-HY DROXY vd25oh 72.7 NG/mL 30-100 Vitam in D Statu s: Defic ient: <20 ng/mL Insuf ficie nt: 20-29 ng/mL Suffi cient : 30-10 0 ng/mL Not Available [facility] (Lab) [address] [place], [address], 05/17/2024 19:23:05 09/08/19 24 09/08/2023 CT, angio gram, chest , w/ contr ast No observ ation record ed. [id number] [facility] [address], [place], [address], 09/11/2023 16:05:38 02/21/20 24 02/20/2024 CT, chest , w/o contr ast No observ ation record ed. [id number] [facility] [address], [place], [address], 05/15/2024 12:45:38 08/19/20 24 08/19/2024 imagi ng/di agnos tic resul t No observ ation record ed. [address], [place], [address], 08/19/2024 14:27:46 Result Notes None recorded. Problems Name Problem SNOMED Code Status Onset Date Resolution Date Notes Provider Name and Address Organization Details Recorded Time Granulomat ous disorder 593431694 Active 2020 Not Available [facility] 3 00:41:14 Hyperchole sterolemia 93860652 Active Not Available [facility] 3 00:41:14 Dyspnea at rest 232503372 Active 2021 Not Available [facility] 3 00:41:14 Acute exacerbati on of chronic obstructiv e pulmonary disease 928922084 Active 2021 Not Available [facility] 3 00:41:14 History of SARS-CoV-2 0658781995436 07791 Active 2021 Not Available [facility] 3 00:41:14 Chest pain 64229898 Active 2021 Not Available [facility] 3 00:41:14 Severe chronic obstructiv e pulmonary disease 602038514 Active 2020 Not Available [facility] 3 00:41:14 Blood in urine 51770662 Active Not Available [facility] 3 00:41:14 Hypertensi ve disorder 71237619 Active 2021 Not Available [facility] 3 00:41:14 Acute urinary tract infection 854684900 Active 2021 Not Available [facility] 3 00:41:14 Abdominal discomfort 37518067 Active 2021 Not Available [facility] 3 00:41:14 Multiple nodules of lung 179290257 Active 2021 Not Available [facility] 3 00:41:14 Pyuria 1147604 Active Not Available [facility] 3 00:41:14 Dyspnea on exertion 18509572 Active 2021 Not Available [facility] 3 00:41:14 Bacterial infection caused by Pseudomona s 11645468 Active 2021 Not Available [facility] 3 00:41:14 Chronic cough 82975097 Active 2021 Not Available [facility] 3 00:41:14 Ex-smoker 2108056 Active 2021 Not Available [facility] 3 00:41:14 Skin lesion 67713066 Active 2022 Not Available [facility] 3 00:41:15 Urolithias is 19556039 Active Not Available [facility] 3 00:41:15 Pneumonia 675566588 Active 2022 Not Available [facility] 3 00:41:14 Paroxysmal atrial fibrillati on 066576621 Active 2022 Not Available [facility] 3 00:41:14 Vertigo 751176142 Active 2022 Not Available [facility] 3 00:41:14 Osteoporos is 77011260 Active 2022 Not Available [facility] 3 00:41:14 Hyperlipid emia 52119317 Active 2022 Not Available [facility] 3 00:41:14 Essential hypertensi on 97178922 Active 2022 Not Available [facility] 3 00:41:14 Rheumatoid arthritis 50294626 Active 2022 Not Available [facility] 3 00:41:14 Vitamin D deficiency 16734174 Active 2022 Not Available [facility] 3 00:41:14 Chronic urinary tract infection 462832043 Active 2022 Not Available [facility] 3 00:41:14 Kidney stone 31830837 Active 2022 Not Available [facility] 3 00:41:15 Chronic obstructiv e pulmonary disease 53939516 Active 2022 Not Available [facility] 3 00:41:14 Prediabete s 874315714 Active 2022 Not Available [facility] 3 00:41:14 Overactive urinary bladder 709840091 Active 2022 Not Available [facility] 3 00:41:14 Anxiety 83534424 Active 2022 Not Available [facility] 3 00:41:14 Muscle weakness 09200914 Active 2022 Not Available [facility] 3 00:41:14 Abdominal pain 19319502 Active 2022 Not Available [facility] 3 00:41:14 Herpes zoster 4101454 Active 2022 Not Available [facility] 3 00:41:14 Rib pain 909627292 Active 2022 Not Available [facility] 3 00:41:14 Hearing loss 97483453 Active 2022 Not Available [facility] 3 00:41:14 Anemia 953226438 Active 2022 Not Available [facility] 3 00:41:14 Cobalamin deficiency 299419388 Active 2022 Not Available [facility] 3 00:41:14 Recurrent urinary tract infection 962977623 Active 2022 Not Available [facility] 3 00:41:14 Chavez hematuria 158690492 Active 2022 Not Available [facility] 3 00:41:14 CT of pelvis abnormal 7200949270791 9104 Active 2022 Not Available [facility] 3 00:41:14 Urge incontinen ce of urine 05536669 Active 2022 Not Available [facility] 3 00:41:15 Iron deficiency anemia 19976940 Active 2022 Not Available [facility] 3 00:41:15 Pain of right shoulder joint 3013727488138 9100 Active 2022 Not Available [facility] 3 00:41:14 Gastro-eso phageal reflux disease with esophagiti s 761189451 Active 2022 Not Available [facility] 3 00:41:14 Pain of left shoulder joint 1465328080719 9109 Active 2022 [employer] null, [facility] 3 15:14:58 Postherpet ic neuralgia 2589220 Active 2023 JORGE Dawkins [address], [place], [address] , [facility] 4 12:49:58 Gastroesop hageal reflux disease without esophagiti s 138941491 Active 2023 Shelby rogers MD [address], [place], [address] , [facility] 4 14:27:22 Urinary incontinen ce 861968105 Active 2023 Shelby rogers MD [address], [place], [address] , [facility] 4 14:28:16 Hyperglyce charles 95982838 Active 2023 MOHSEN Abbasi, [facility] 4 14:04:41 Chronic kidney disease 797255133 Active 2023 Nenita Morales MA null, [facility] 4 11:44:45 Type 2 diabetes mellitus without complicati on 298976495 Active 2023 Nenita Morales MA null, [place] [employer] 4 15:48:52 Chronic pain syndrome 663339537 Active 2023 Shelby rogers MD [address] [facility], [address] [address], [place], [address] , [facility] [employer] [facility] 14:27:24 Problem Notes None recorded. Procedures Surgical History Date Name Laterality Status Provider Name and Address Organization Details Recorded Time 4 Medicare Wellness CPT Code, subsequent completed Rosibel Butler RN [place] [facility] [employer] 07/30/2024 16:44:14 3 Medicare Wellness CPT Code, subsequent completed JORGE Dawkins [address] [facility], [facility] [address], [place], [address], [employer] 03/03/2023 16:28:33 3 Transitional_C are_Management completed Gillian Castano RN [place] [facility] 11/08/2022 12:59:30 section completed Dorie Garcia MA [place] [facility] [employer] 03/17/2023 10:21:58 Kidney/Bladder Surgery completed Not Available [facility] 11/02/2022 02:42:52 Imaging Results Imaging Date Name Status LastModified by Organiz ation Details LastModified Time 09/08/2023 CT, angiogram, chest, w/ contrast completed [email or web address] [place] [address], [address], 09/11/2023 16:05:38 02/20/2024 CT, chest, w/o contrast completed [email or web address] [place] [address], [address], 05/15/2024 12:45:38 08/19/2024 imaging/diagn ostic result active [address] [place] [address], [address], 08/19/2024 14:27:46 Procedure Notes None recorded. Medical Equipment None Reported. Allergies Allergen ID Allergen Name Allergen Category Reaction Reaction Severity Criticality Documentation Date Start Date Code Code System Note Provider Name and Address Organization Details Recorded Time 4280 Pethidine analog (substanc e) medicatio n irregular heart rate Not available Not available 11/02/2022 62827 0004 SNOMED Not Available [facility] 3 02:55:22 4281 doxycycli ne Not available vomiting Not available Not available 11/02/2022 3640 RxNorm Not Available [facility] 3 02:55:23 4282 Product containin g penicilli n and antibioti c (product) medicatio n hives Not available Not available 11/02/2022 07664 05 SNOMED Not Available [facility] 3 02:55:23 27113 gabapenti n medicatio n Not available Not available Not available 11/25/2022 48155 RxNorm Simona Marquis, MOHSEN fuller, [place] [facility] [employer] 3 11:18:38 Medications Name Sig Start Date Stop Date Status Note LastModified by Organization Details LastModified Time latanoprost 0.005 % eye drops INSTILL 1 DROP INTO EACH EYE AT BEDTIME 05/23 completed Not Available Not Available Not Available albuterol sulfate 0.63 mg/3 mL solution for nebulizatio n 07/06 completed Not Available Not Available Not Available prednisone 10 mg tablet TAKE 4 TABLETS BY MOUTH ONCE DAILY 02/07 completed Not Available Not Available Not Available albuterol sulfate 2.5 mg/3 mL (0.083 %) solution for nebulizatio n Inhale 3 mL 4 times a day by nebulizat ion route for 30 days. 07/06 completed Not Available Not Available Not Available Iron (ferrous sulfate) 325 mg (65 mg iron) tablet Take 1 tablet by mouth twice daily 05/23 completed Not Available Not Available Not Available azithromyci n 250 mg tablet TAKE 2 TABLETS BY MOUTH ON DAY 1, AND THEN TAKE 1 TABLET BY MOUTH ONCE A DAY ON DAY 2 THROUGH DAY 5 active Not Available Not Available No t Available levalbutero l 0.63 mg/3 mL solution for nebulizatio n USE 1 VIAL IN NEBULIZER EVERY 8 HOURS NEEDED 07/06 completed Not Available Not Available Not Available metoprolol tartrate 100 mg tablet 10/30 completed Not Available Not Available Not Available metoprolol succinate ER 50 mg tablet,exte nded release 24 hr 04/17 completed Not Available Not Available Not Available valacyclovi r 1 gram tablet TAKE 1 TABLET BY MOUTH THREE TIMES DAILY FOR 7 DAYS 03/17 completed Not Available Not Available Not Available cephalexin 250 mg capsule TAKE 1 CAPSULE BY MOUTH ONCE DAILY 07/06 completed Not Available Not Available Not Available prednisone 20 mg tablet TAKE 2 TABLETS BY MOUTH ONCE DAILY DIRECTED FOR 5 DAYS active Not Available Not Available No t Available alendronate 70 mg tablet 10/30 completed Not Available Not Available Not Available prednisone 5 mg tablet 02/19 completed Not Available Not Available Not Available meclizine 12.5 mg tablet Take 1 tablet 3 times a day by oral route as needed for 15 days. active Not Available Not Available No t Available ciprofloxac in 250 mg tablet TAKE 1 TABLET BY MOUTH EVERY 12 HOURS FOR 10 DAYS 02/07 completed Not Available Not Available Not Available levofloxaci n 250 mg tablet TAKE 2 TABLETS BY MOUTH ONCE DAILY FOR 10 DAYS 11/25 completed Not Available Not Available Not Available ciprofloxac in 500 mg tablet TAKE 1 TABLET BY MOUTH TWICE DAILY FOR 7 DAYS 05/23 completed Not Available Not Available Not Available sulfamethox azole 800 mg-trimetho prim 160 mg tablet TAKE 1 TABLET BY MOUTH TWICE DAILY FOR 7 DAYS 09/12 completed Not Available Not Available Not Available omeprazole 40 mg capsule,del ayed release Take 1 capsule by mouth once daily 05/23 completed Not Available Not Available Not Available doxycycline monohydrate 100 mg tablet Take 1 tablet twice a day by oral route as directed for 7 days. active Not Available Not Available No t Available tramadol 50 mg tablet 10/30 completed Not Available Not Available Not Available Cytra-K 1,100 mg-334 mg/5 mL oral solution TAKE ONE TEASPOONF UL (5 ML) BY MOUTH THREE TIMES DAILY 10/30 completed Not Available Not Available Not Available spironolact one 25 mg tablet TAKE 1 TABLET BY MOUTH ONCE DAILY 03/17 completed Not Available Not Available Not Available cyproheptad ine 4 mg tablet 04/17 completed Not Available Not Available Not Available diltiazem 120 mg tablet TAKE 1 TABLET BY MOUTH ONCE DAILY active Not Available Not Available No t Available magnesium oxide 400 mg (241.3 mg magnesium) tablet TAKE 1 TABLET BY MOUTH ONCE DAILY active Not Available Not Available No t Available cyanocobala min (vit B-12) 500 mcg tablet Take 1 tablet every day by oral route. 03/17 completed Not Available Not Available Not Available methotrexat e sodium 2.5 mg tablet TAKE 3 TABLETS BY MOUTH ONCE A WEEK 09/28 completed Not Available Not Available Not Available amlodipine 10 mg tablet 06/20 completed Not Available Not Available Not Available potassium citrate ER 10 mEq (1,080 mg) tablet,exte nded release Take 1 tablet 3 times a day by oral route for 90 days. 10/30 completed Not Available Not Available Not Available Trexall 10 mg tablet 02/19 completed Not Available Not Available Not Available cephalexin 500 mg capsule 06/08 completed Not Available Not Available Not Available cyanocobala min (vit B-12) 1,000 mcg/mL injection solution Inject 1 mL every month by subcutane ous route. 07/06 completed Not Available Not Available Not Available losartan 25 mg tablet TAKE 1 TABLET BY MOUTH ONCE DAILY active Not Available Not Available No t Available flecainide 100 mg tablet TAKE 1 TABLET BY MOUTH TWICE DAILY active Not Available Not Available No t Available diclofenac sodium 75 mg tablet,shanta yed release 10/30 completed Not Available Not Available Not Available diltiazem CD 120 mg capsule,ext ended release 24 hr TAKE 1 CAPSULE BY MOUTH ONCE DAILY 07/06 completed Not Available Not Available Not Available folic acid 1 mg tablet TAKE 1 TABLET BY MOUTH ONCE DAILY 09/28 completed Not Available Not Available Not Available hydroxyzine HCl 25 mg tablet Take 1 tablet by mouth twice daily as needed 07/06 completed Not Available Not Available Not Available Cartia XT 240 mg capsule,ext ended release 04/17 completed Not Available Not Available Not Available pravastatin 20 mg tablet TAKE 1 TABLET BY MOUTH ONCE DAILY WITH SUPPER active Not Available Not Available No t Available mupirocin 2 % topical ointment APPLY OINTMENT TOPICALLY TWICE DAILY 03/17 completed Not Available Not Available Not Available mirtazapine 15 mg tablet 04/17 completed Not Available Not Available Not Available ergocalcife rol (vitamin D2) 1,250 mcg (50,000 unit) capsule TAKE 1 CAPSULE BY MOUTH ONCE A WEEK active Not Available Not Available No t Available levalbutero l 1.25 mg/3 mL solution for nebulizatio n USE 1 VIAL IN NEBULIZER EVERY 4 HOURS active Not Available Not Available No t Available levofloxaci n 500 mg tablet TAKE 1 TABLET BY MOUTH ONCE DAILY 11/25 completed Not Available Not Available Not Available levofloxaci n 750 mg tablet 02/08 completed Not Available Not Available Not Available methylpredn isolone 4 mg tablets in a dose pack TAKE BY MOUTH DIRECTED ON INSIDE OF PACKAGE 09/28 completed Not Available Not Available Not Available diltiazem 30 mg tablet 1 TABLET BY MOUTH EVERY 8 HOURS. DISCONTIN UE DRIP. HOLD FOR SYSTOLIC BLOOD PRESSURE <100 AND/OR HEART RATE>50 11/15 completed Not Available Not Available Not Available cefdinir 300 mg capsule TAKE 1 CAPSULE BY MOUTH TWICE DAILY FOR 10 DAYS 06/05 completed Not Available Not Available Not Available calcitriol 0.25 mcg capsule TAKE 1 CAPSULE BY MOUTH ONCE DAILY active Not Available Not Available No t Available ipratropium bromide 0.02 % solution for inhalation Inhale 2.5 mL every 6 hours by inhalatio n route. 2022 active Not Available Not Available Not Avai lable amoxicillin 875 mg-potassiu m clavulanate 125 mg tablet TAKE 1 TABLET BY MOUTH EVERY 12 HOURS active Not Available Not Available No t Available Cartia XT 180 mg capsule,ext ended release 04/17 completed Not Available Not Available Not Available Ventolin HFA 90 mcg/actuati on aerosol inhaler INHALE 2 PUFFS BY MOUTH EVERY 4 HOURS DIRECTED 07/30 completed Not Available Not Available Not Available escitalopra m 10 mg tablet TAKE 1/2 (ONE-HALF ) TABLET BY MOUTH ONCE DAILY 07/06 completed Not Available Not Available Not Available potassium citrate monohydrate (bulk) 100 % powder Dissolve 10 meq in water and drink three times a day. Dispense QS for one month active Not Available Not Available No t Available Klor-Con M10 mEq tablet,exte nded release 10/30 completed Not Available Not Available Not Available Sotalol AF 80 mg tablet TAKE 1 TABLET BY MOUTH TWICE DAILY 03/17 completed Not Available Not Available Not Available nitrofurant oin monohydrate /macrocryst als 100 mg capsule TAKE 1 CAPSULE BY MOUTH TWICE DAILY FOR 7 DAYS 03/03 completed Not Available Not Available Not Available Lactobacill us acidophilus 1 billion cell tablet Take 1 tablet every day by oral route as directed for 30 days. 03/28 completed Not Available Not Available Not Available levalbutero l HFA 45 mcg/actuati on aerosol inhaler INHALE 2 PUFFS BY MOUTH EVERY 6 HOURS NEEDED FOR SHORTNESS OF BREATH AND FOR WHEEZING active Not Available Not Available No t Available Mucinex 1,200 mg tablet, extended release Take 1 tablet twice a day by oral route as directed for 30 days. 02/08 completed Not Available Not Available Not Available diclofenac 1 % topical gel 02/19 completed Not Available Not Available Not Available Xarelto 15 mg tablet TAKE 1 TABLET BY MOUTH ONCE DAILY WITH SUPPER active Not Available Not Available No t Available Xarelto 20 mg tablet TAKE 1 TABLET BY MOUTH ONCE DAILY 09/28 completed Not Available Not Available Not Available Myrbetriq 25 mg tablet,exte nded release TAKE 1 TABLET BY MOUTH ONCE DAILY 07/30 completed Not Available Not Available Not Available Myrbetriq 50 mg tablet,exte nded release TAKE 1 TABLET BY MOUTH ONCE DAILY FOR 90 DAYS active Not Available Not Available No t Available Farxiga 10 mg tablet TAKE 1 TABLET BY MOUTH ONCE DAILY 05/23 completed Not Available Not Available Not Available Anoro Ellipta 62.5 mcg-25 mcg/actuati on powder for inhalation INHALE 1 PUFF BY MOUTH ONCE DAILY DIRECTED 09/28 completed Not Available Not Available Not Available Trelegy Ellipta 100 mcg-62.5 mcg-25 mcg powder for inhalation INHALE 1 PUFF ONCE DAILY DIRECTED 05/23 completed Not Available Not Available Not Available Breztri Aerosphere 160 mcg-9mcg-4. 8mcg/actuat ion HFA aerosol inhaler Inhale 2 puffs by mouth twice daily active Not Available Not Available No t Available Vitals Date Recorded Body height Provider Name an d Address Organization Details Last Updated DateTime 09/12/2023 154.94 cm Simona Marquis MA [facility] 09/12/2023 12:37:23 Date Recorded Body height Body mass index (BMI) Body weight Body temperature Heart rate Systolic blood pressure Diastolic blood pressure Provider Name and Address Organization Details Last Updated DateTime 4 154.94 cm 18.9 kg/m2 22217.2 4 g 97.3 [degF] 78 /min 110 mm[Hg] 64 mm[Hg] YOUSUF Martínez [facility] 4 14:18:43 Date Recorded Body height Body mass index (BMI) Body weight Body temperature Heart rate Systolic blood pressure Diastolic blood pressure Provider Name and Address Organization Details Last Updated DateTime 4 154.94 cm 19.1 kg/m2 47226.8 3 g 97.4 [degF] 72 /min 110 mm[Hg] 60 mm[Hg] Tamera Perea Earnest [facility] 4 14:08:33 Date Recorded Body height Body mass index (BMI) Body weight Body temperature Heart rate Oxygen saturation Oxygen saturation in Arterial blood by Pulse oximetry Systolic blood pressure Diastolic blood pressure Provider Name and Address Organization Details Last Updated DateTime 4 154.94 cm 19.3 kg/m2 41168.4 2 g 99 [degF] 93 /min 97 % 97 % 134 mm[Hg] 74 mm[Hg] Negra Tobar MA [facility] 4 16:03:26 Date Recorded Body height Body mass index (BMI) Body weight Body temperature Heart rate Systolic blood pressure Diastolic blood pressure Provider Name and Address Organization Details Last Updated DateTime 4 154.94 cm 19.7 kg/m2 29752.6 1 g 97.6 [degF] 72 /min 100 mm[Hg] 60 mm[Hg] Tamera Perea Earnest [facility] 4 16:41:55 Social History Question Answer Notes LastModified by Organizat ion Details LastModified Time Tobacco Smoking Status Former Smoker quit 11/2019 Not Available [facility] 11/02/2022 02:27:05 Do You Have An Advance Directive? No [id number] Information not available 11/02/2022 What Is Your Level Of Alcohol Consumption? None MIGRATION.81537 73579 Information not available 11/02/2022 What Is Your Level Of Caffeine Consumption? Moderate Information not available 03/17/2023 How Much Tobacco Do You Chew? None MIGRATION.80839 [id number] Information not available 11/02/2022 In The 14 Days Before Symptom Onset, Have You Had Close Contact With A Laboratory-confir med COVID-19 While That Case Was Ill? No MIGRATION.33072 [id number] Information not available 11/02/2022 In The 14 Days Before Symptom Onset, Have You Had Close Contact With A Person Who Is Under Investigation For COVID-19 While That Person Was Ill? No MIGRATION.59246 80689 Information not available 11/02/2022 What Type Of Diet Are You Following? REGULAR MIGRATION.49569 20449 Information not available 11/02/2022 Which Illicit Or Recreational Drugs Have You Used? None MIGRATION.41796 49917 Information not available 11/02/2022 Do You Or Have You Ever Used E-cigarettes Or Vape? Never Used Electronic Cigarettes MIGRATION.74081 [id number] Information not available 11/02/2022 What Is The Highest Grade Or Level Of School You Have Completed Or The Highest Degree You Have Received? [id number] MIGRATION.52177 26056 Information not available 11/02/2022 Have There Been Any Changes To Your Family Or Social Situation? No MIGRATION.77913 89475 Information not available 11/02/2022 What Is The Fluoride Status Of Your Home? Unknown MIGRATION.08791 04386 Information not available 11/02/2022 When Did You Quit Smoking? 1-5yearssincel astcigarette MIGRATION.93374 34482 Information not available 11/02/2022 Are There Any Guns Present In Your Home? No MIGRATION.73046 21215 Information not available 11/02/2022 Do You Use Insect Repellent Routinely? No MIGRATION.47561 79439 Information not available 11/02/2022 Where Do You Live? [place] MIGRATION.12895 76670 Information not available 11/02/2022 Do You Have A Medical Power Of [place]? No MIGRATION.15469 40738 Information not available 11/02/2022 What Was The Date Of Your Most Recent Tobacco Screening? 07/30/2024 Information not available 07/30/2024 What Is Your Current Pack Years? 30ormorepackye ars MIGRATION.86142 13583 Information not available 11/02/2022 Do You Have Any Pets? Yes MIGRATION.13757 73344 Information not available 11/02/2022 Do You Use Your Seat Belt Or Car Seat Routinely? Yes MIGRATION.00572 93057 Information not available 11/02/2022 Do You Have Smoke And Carbon Monoxide Detectors In Your Home? Yes MIGRATION.01900 47091 Information not available 11/02/2022 At What Age Did You Start Smoking Tobacco? 18 MIGRATION.76631 60816 Information not available 11/02/2022 Are You Passively Exposed To Smoke? No MIGRATION.33662 52382 Information not available 11/02/2022 Do You Or Have You Ever Used Smokeless Tobacco? Never Used Smokeless Tobacco MIGRATION.41660 27433 Information not available 11/02/2022 Are There Any Smokers In Your House? No MIGRATION.63453 62902 Information not available 11/02/2022 How Much Tobacco Do You Smoke? No Was 1ppd Information not available 10/05/2023 Do You Feel Stressed (tense, Restless, Nervous, Or Anxious, Or Unable To Sleep At Night)? [id number] MIGRATION.46086 67711 Information not available 11/02/2022 Do You Use Any Illicit Or Recreational Drugs? No MIGRATION.81561 90950 Information not available 11/02/2022 Do You Use Sunscreen Routinely? No MIGRATION.67051 97416 Information not available 11/02/2022 How Many Years Have You Smoked Tobacco? 51 MIGRATION.36248 66039 Information not available 11/02/2022 Have You Recently Traveled Abroad? No MIGRATION.68619 86025 Information not available 11/02/2022 Do You Have Any Dietary Restrictions? No MIGRATION.25355 16447 Information not available 11/02/2022 Do You Or Have You Ever Used Any Other Forms Of Tobacco Or Nicotine? No Information not available 10/05/2023 Sex: Unknown Functional Status Question Answer Note LastModified by Organizat ion Details LastModified Time What is your exercise level? Occasional [id number] Information not available 11/02/2022 Mental Status None recorded. Family History Relationship Description Onset Age of this Age Resolved Age Notes LastModified by Organization Details LastModified Time Father Heart disease [id number] Not available 11/02/2022 02:42:53 Brother Heart disease [id number] Not available 11/02/2022 02:42:53 Father Hypertensive disorder [email or web address] Not available 2022 10:18:49 Father Kidney stone Not availa ble 03/17/2023 10:19:06 Medical History Condition Response CHEST XRAY N BLINDNESS N NERVE DISEASE N KIDNEY STONES Y OTHER # 1 N POLIO N LUNG DISEASE/DISORDER N RADIATION / CHEMOTHERAPY N COPD Y Other # 2 N BLOOD DISEASES N SURGERY N EAR OR HEARING PROBLEMS N BOWEL PROBLEMS N DEPRESSION (INCLUDING POST ) Y FEMALE PROBLEMS / INFECTIONS N STROKE/TIA N CHEST CT N ULCERS N RENAL INSUFFICIENCY N BENIGN PROSTATIC HYPERPLASIA N TB SKIN TEST N OBESITY N GERD/NAUSEA N EXCESSIVE PERSPIRATION N ANEURYSM N URINARY/BLADDER/KIDNEY PROBLEMS N CORONARY ARTERY DISEASE (CAD) N USE OF BLOOD THINNERS N SKIN PROBLEMS N EMPHYSEMA Y SHORTNESS OF BREATH N GASTROINTESTINAL DISORDER N PARATHYROID DISEASE N PERIPHERAL VASCULAR DISEASE N GASTROINTESTINAL BLEEDING N BLOOD CLOTS N ASTHMA N CATARACTS Y CONCUSSION OR SPINAL TRAUMA N VARICOSITIES N GI PROBLEMS N CHF N AIDS/HIV N HYPERTENSION Y ANXIETY DISORDER N BLOOD TRANSFUSION N ANEMIA/BLOOD DISORDER Y BRONCHITIS N TUBERCULOSIS N GLAUCOMA Y SLEEP APNEA N ALLERGIES/HAYFEVER N INFECTIOUS DISEASE N HEART ARRHYTHMIA N PROSTATE N INSOMNIA N HIGH CHOLESTEROL / HYPERLIPIDEMIA N HYPERTHYROIDISM N NEUROLOGICAL PROBLEMS N EDEMA N HYPOTHYROIDISM N CAROTID BLOCKAGE N BACK / NECK PROBLEMS N HAVE YOU BEEN HOSPITALIZED OR SEEN IN [facility] IN THE PAST YEAR ? N ATHEROSCLEROSIS N BREAST PROBLEMS N HERNIATED DISC N DIALYSIS N FIBROMYALGIA N OSTEOPOROSIS N ARTHRITIS Y NO SIGNIFICANT PAST MEDICAL HISTORY N DIABETES, TYPE N SEASONAL ALLERGIES N HEARTBURN / REFLUX N PLEURISY N ADD/ADHD N Bronchoscopy N HEPATITIS / LIVER DISEASE N PULMONARY DISEASE N GOUT N SLEEP DISORDER N ALZHEIMER'S DISEASE N FATIGUE N DEMENTIA N HERPES N RETINOPATHY N SEIZURES/EPILEPSY N HEADACHES/MIGRAINES N SLEEP STUDY N VASCULAR DISEASE N DIZZINESS N HEAD TRAUMA OR INJURY N HEART DISEASE/HEART PROBLEMS N KIDNEY DISEASE Y MULTIPLE SCLEROSIS N PULMONARY FUNCTION TEST N CANCER: SPECIFY N CARDIAC ARRHYTHMIA N ANESTHESIA COMPLICATIONS N PNEUMONIA N ATRIAL FIBRILLATION N PULMONARY EMBOLISM N AUTOIMMUNE DISEASE N Gynecological HistoryNo gynecological history recorded. Obstetrics History GPAL:G 0 P 0 0 0 0 Immunizations Vaccine Type Date Status Note Provider Nam e and Address Organization Details Recorded Time COVID-19, mRNA, LNP-S, PF, 100 mcg/0.5mL dose or 50 mcg/0.25mL dose 1 completed Not Available [facility] 06/07/2023 00:41:15 COVID-19, mRNA, LNP-S, PF, 100 mcg/0.5mL dose or 50 mcg/0.25mL dose 1 completed Not Available [facility] 06/07/2023 00:41:15 Pneumococcal conjugate PCV 13 0 completed Not Available [facility] 06/07/2023 00:41:15 Influenza, high-dose, quadrivalent, PF 2 completed Not Available [facility] 06/07/2023 00:41:15 Influenza, high-dose, quadrivalent, PF 1 completed Not Available [facility] 06/07/2023 00:41:15 Influenza, split virus, quadrivalent, PF 0 completed Not Available [facility] 06/07/2023 00:41:15 Influenza, high-dose, trivalent, PF 8 completed Not Available [facility] 06/07/2023 00:41:15 Influenza, high-dose, quadrivalent, PF 3 completed JORGE Dawkins [address] [address], [place], [address], [place] [facility] [place] [employer] 06/05/2023 16:14:03 Influenza, high-dose, trivalent, PF 4 completed Shelby Julio MD [address] [facility], [facility] [address], [place], [address], [place] [facility] [employer] 07/31/2024 20:26:40 Past Encounters Encounter ID Performer Location Encounter Start Date Encounter Closed Date Diagnosis/Indication Diagnosis SNOMED-CT Code Diagnosis ICD10 Code Diagnosis Note [id number] [facility] Pulmonolo gy [place] [address] [facility] [address] [place] [address] 11/24/2020 00:00:00 11/24/2020 16:51:19 [id number] [facility] [address] [facility] [address] [place] [address] 02/23/2021 00:00:00 02/23/2021 16:50:21 [id number] [facility] [address] [facility] [address] [place] [address] 07/06/2021 00:00:00 07/06/2021 21:48:00 [id number] [facility] [address] [facility] [address] [place] [address] 09/28/2021 00:00:00 09/28/2021 17:36:27 [id number] [facility] [place] [address] [place] [address] 10/01/2021 00:00:00 10/01/2021 15:16:14 [id number] [facility] [address] [facility] [address] [address] 11/15/2021 00:00:00 11/15/2021 16:23:10 [id number] [facility] [place] [address] [place] [address] 12/06/2021 00:00:00 12/06/2021 16:33:31 [id number] [facility] [place] [address] [place] [address] 02/04/2022 00:00:00 02/04/2022 10:34:54 [id number] [facility] [address] [facility] [address] [place] [address] 02/08/2022 00:00:00 02/08/2022 17:12:47 [id number] [facility] [place] [address] [place] [address] 03/23/2022 00:00:00 03/23/2022 15:01:30 [id number] [facility] [address] [facility] [address] [address] 03/28/2022 00:00:00 03/28/2022 17:08:56 [id number] [facility] [place] [address] [place] [address] 06/08/2022 00:00:00 06/08/2022 23:24:29 [id number] [facility] [place] [address] [place] [address] 06/24/2022 00:00:00 06/24/2022 15:25:19 [id number] [facility] [address] [address] 07/18/2022 00:00:00 07/18/2022 17:10:22 [id number] JORGE Dawkins [facility] Med [facility] [address] [place] [address] Ave[address] [address] 11/25/2022 11:13:16 11/25/2022 11:57:55 Renewal of prescription 898402339 Z76.0 Pneumonia 809089999 J18. 9 on low dose custodial antibiotic s from [facility] s up with them in 2 weeks Paroxysmal atrial fibrillation 746205895 I48.0 follows cardiology - Dr. Travis mitchell sotalol, xarelto, metoprolol next appt next week Vertigo 846801691 R42 following ENT- Dr. Janeth rolon s to having hearing test Osteoporosis 21496148 M8 1.0 get bone density- does not want to start back on alendronat e until she gets scancontin ue calcium, vitamin drecommend weight bearing/re sistance exercise at least 2x a week Hyperlipidemia 88299848 E78.5 on pravastati n Essential hypertension 93100499 I10 now off the losartan per cardiology , on the sotalol only Rheumatoid arthritis 698 93686 M06.9 follows rheumatolo gy- Dr. Mancini MTX, folic acid Mammogram declined 16631 5004 Z53.20 risks discussed including missed cancer and Screening for malignant neoplasm of colon 715689656 Z12.11 has cologuard order- encouraged her to get this donePt refuses screening colonoscop y but agrees to Cologuard. All risks explained to her, including that Cologuard may miss 8% of cancers. Vitamin D deficiency 347 89272 E55.9 on supplement Chronic ur inary tract infection 605359864 N39.0 follows urology- Dr. Eli Blood in urine 42239763 R31.9 follows urology as above Kidney stone 95042764 N2 0.0 follows urology as above Chronic ob structive pulmonary disease 95825182 J44.9 follows pulmonolog y-Dr. Kiana Hurley, has Xopenex and ipratropiu m nebsnext appt with pulm in 2 weeks Prediabetes 919146393 R7 3.03 diet/exerc ise as tolerated recommende d Overactive urinary bladder 621849768 N32.81 on Myrbetriq Anxiety 60878932 F41.9 On Lexapro, p.r.n. hydroxyzin e-she is aware of side effects, risks, and benefits Call office if any change in mood or behavior She declines psychiatry referral today Muscle weakness 64831596 M62.81 Has home health order for physical therapy Transition of care 18368 26416 105 Z75.8 Transition Care Management Questionna ireDate of Discharge 11/05/22Admi ssion Date: 10/26/22Dat e of Contact: 1st attempt: 11/08/22Reas on for Admission: DizzinessD ischarge Facility Name: [facility] Facility Type inpatient acute care [facility] Diagnosis( es): Otitis externa of right ear, nasal folliculit is, vertigoDia gnostic Test(s) Performed: Other: lab work, urine cultureDid your hospital physician prescribe any new medicines upon discharge? 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 yesDo you have any questions about your new medication s? noDid the hospital set up a follow up appointmen t with your PCP? no (Scheduled patient for 11/18/22)Di d the hospital set up an appointmen t up with any specialist s? noDid the hospital set up Home Health Care or Outpatient therapy? yes, with who?[facility], If yes, did they call or visit you yet? (yes), If yes, do you have their phone number? (yes)Did the hospital set you up with any equipment before discharge? noDo you have all the equipment you need to perform daily living activities ? yesPerform ed by: (include credential s) Negrito Castano RN [id number] [place], ASSESSMENT ANALYST-C [facility] Internal Med [facility] [address] [facility] [place], [place] [address] 03/03/2023 15:50:46 03/03/2023 16:28:02 Paroxysmal atrial fibrillation [id number] I48.0 follows cardiology - Dr. Travis mitchell sotalol, xarelto, metoprolol next appt next week Vertigo 614315960 R42 following ENT- Dr. Fowler mecliziprakash Osteoporosis 56610574 M8 1.0 get bone density- does not want to start back on alendronat e until she gets scancontin ue calcium, vitamin drecommend weight bearing/re sistance exercise at least 2x a week Hyperlipidemia 65714596 E78.5 on pravastati n Essential hypertension 52953042 I10 now off the losartan per cardiology , on the sotalol only Rheumatoid arthritis 698 11406 M06.9 follows rheumatolo gy- Dr. Mancini MTX, folic acid Mammogram declined 73810 5004 Z53.20 risks discussed including missed cancer and Screening for malignant neoplasm of colon 107091251 Z12.11 has cologuard order- encouraged her to get this donePt refuses screening colonoscop y but agrees to Cologuard. All risks explained to her, including that Cologuard may miss 8% of cancers. Vitamin D deficiency 347 54365 E55.9 on supplement Chronic ur inary tract infection 545036952 N39.0 follows urology- Dr. Eli Blood in urine 78342632 R31.9 follows urology as above Kidney stone 32635473 N2 0.0 follows urology as above Chronic ob structive pulmonary disease 68946279 J44.9 follows pulmonolog y-Dr. Kiana Hurley, has Xopenex and ipratropiu m nebs Prediabetes 433945902 R7 3.03 diet/exerc ise as tolerated recommende d Overactive urinary bladder 141550518 N32.81 on Myrbetriq Anxiety 67294754 F41.9 On Lexapro, p.r.n. hydroxyzin e-she is aware of side effects, risks, and benefits Call office if any change in mood or behavior She declines psychiatry referral today Muscle weakness 92147601 M62.81 Has home health order for physical therapyShe will benefit from getting an appropriat astrid fitted wheelchair to assist her with ADLs in and out of the house and help reduce risk of falls Herpes zoster 9874544 B0 2.9 start valtrexshe cannot take gabapentin - allergy Rib pain 273212252 R07.8 1 Check x-ray Further plan based on results Adult heal th examination 747279446 Z00.00 Screening for disorder 440264308 Z13.9 Hearing loss 83702847 H9 1.93 following ENT as above [id number] Robert Kennedy NP [facility] Urology [address], [address] [place] [address] 03/17/2023 09:40:37 03/17/2023 10:48:48 Recurrent urinary tract infection 494591401 N39.0 UA today suspicious for infection. Will send urine for culture and start patient on cefdinir twice daily for 7 days. Medication administra tion, use, side effects discussed. Patient to start daily cephalexin after completing full course of cefdinir for UTI prophylaxi s. We reviewed UTI prevention strategies . Chavez hematuria 80444413 5 R31.0 Gross hematuria even outside of UTI. Will obtain CT urogram for full assessment of the upper urinary tracts and have patient follow-up for a cystoscopy for evaluation of the lower urinary tracts And to evaluate possible bladder mass/ hematoma. We discussed possible etiologies of gross hematuria including infection, stones, cancer/ malignancy , benign tumors, and/or certain anatomic abnormalit ies. CT of pelvis abnormal 15 33365913 1444697 R93.89 History of calculus of kidney 430709762 Z87.442 Re-evaluat ing stone burden on CT scan. Will get KUB to see if stones are radiolucen t. Given she has 7 mm nonobstruc ting right renal stone may need to consider treating as this may be a source of infection. Urge incon tinence of urine 11592714 N39.41 Symptoms improved with Myrbetriq, but not having good coverage at nighttime. Will increase to 50 mg daily. Medication administra tion, use, side effects reviewed. [id number] JORGE Dawkins [facility] Internal [facility] [address] [facility] [address] [place] [address] 06/05/2023 14:22:15 06/05/2023 15:07:00 Administration of influenza vaccine 11747983 Z23 Adult heal th examination 745763724 Z00.01 Paroxysmal atrial fibrillation 339688006 I48.0 follows cardiology - Dr. Travis mitchell sotalol, xarelto, metoprolol Vertigo 690531083 R42 following ENT- Dr. Janeth gonzáles Osteoporosis 55559418 M8 1.0 get bone density- does not want to start back on alendronat e until she gets scancontin ue calcium, vitamin drecommend weight bearing/re sistance exercise at least 2x a week Hyperlipidemia 47803960 E78.5 on pravastati n Essential hypertension 32864113 I10 now off the losartan per cardiology , on the sotalol only Rheumatoid arthritis 698 60363 M06.9 follows rheumatolo gy- Dr. Mancini MTX, folic acid Mammogram declined 36924 5004 Z53.20 risks discussed including missed cancer and Screening for malignant neoplasm of colon 331147571 Z12.11 has cologuard order- encouraged her to get this done Pt refuses screening colonoscop y but agrees to Cologuard. All risks explained to her, including that Cologuard may miss 8% of cancers. Vitamin D deficiency 347 22957 E55.9 on supplement Chronic ur inary tract infection 818250310 N39.0 follows urology- Dr. Eli Blood in urine 68437799 R31.9 follows urology as above Kidney stone 72048841 N2 0.0 follows urology as above Chronic ob structive pulmonary disease 45986706 J44.9 follows pulmonolog y-Dr. Kiana Hurley, has Xopenex and ipratropiu m nebs Prediabetes 506971234 R7 3.03 diet/exerc ise as tolerated recommende d Overactive urinary bladder 607708103 N32.81 on Myrbetriq Anxiety 51443163 F41.9 On Lexapro, p.r.n. hydroxyzin e-she is aware of side effects, risks, and benefitsCa ll office if any change in mood or behaviorSh e declines psychiatry referral today Muscle weakness 34920402 M62.81 Has home health order for physical therapy- she did 2 visits then decided she didn't want it anymore, now d/c from She will benefit from getting an appropriat astrid fitted wheelchair to assist her with ADLs in and out of the house and help reduce risk of falls Hearing loss 72402181 H9 1.93 following ENT as above Cobalamin deficiency 190 992986 E53.8 on B12 supplement Iron defic iency anemia 47673664 D50.9 on supplement Pain of ri ght shoulder joint 9115644534 1520856 M25.511 get XRget appt with ortho Recurrent urinary tract infection 056622637 N39.[address] Moffett to [facility] Depression screening 171 549251 Z13.31 [id number] MAICO Leroy [facility] [address] [address] 07/06/2023 14:39:46 07/06/2023 16:05:42 Pain of right shoulder joint 6901850933 1628769 M25.961 [id number] JORGE Dawkins [facility] Internal [facility] [address] [place] [address] 09/12/2023 12:34:55 09/12/2023 14:02:04 Paroxysmal atrial fibrillation 180325662 I48.0 follows cardiology - Dr. Travis mitchell sotalol, xarelto, metoprolol Vertigo 996536609 R42 following ENT- Dr. Janeth gonzáles Osteoporosis 09147605 M8 1.0 get bone density- does not want to start back on alendronat e until she gets scancontin ue calcium, vitamin drecommend weight bearing/re sistance exercise at least 2x a week Hyperlipidemia 13196300 E78.5 on pravastati n Essential hypertension 94513105 I10 now off the losartan per cardiology , on the sotalol only Rheumatoid arthritis 698 92741 M06.9 follows rheumatolo gy- Dr. Mancini MTX, folic acid Mammogram declined 64244 5004 Z53.20 risks discussed including missed cancer and Screening for malignant neoplasm of colon 432301871 Z12.11 has cologuard order- encouraged her to get this done Pt refuses screening colonoscop y but agrees to Cologuard. All risks explained to her, including that Cologuard may miss 8% of cancers. Vitamin D deficiency 347 00722 E55.9 on supplement Chronic ur inary tract infection 992152039 N39.0 follows urology- Dr. Eli Blood in urine 52818238 R31.9 follows urology as above Kidney stone 96524599 N2 0.0 follows urology as above Chronic ob structive pulmonary disease 85645003 J44.9 follows pulmonolog y-Dr. Kiana Hurley, has Xopenex and ipratropiu m nebs Prediabetes 803358891 R7 3.03 diet/exerc ise as tolerated recommende d Overactive urinary bladder 340940845 N32.81 on Myrbetriq Anxiety 12917702 F41.9 On Lexapro, p.r.n. hydroxyzin e-she is aware of side effects, risks, and benefitsCa ll office if any change in mood or behaviorSh e declines psychiatry referral today Muscle weakness 68807913 M62.81 Has home health order for physical therapy- she did 2 visits then decided she didn't want it anymore, now d/c from We did get her a wheelchair to help with ADLs, that was delivered last week Hearing loss 24850153 H9 1.93 following ENT as aboveShe plans to call and make another appointmen t Cobalamin deficiency 190 137377 E53.8 on B12 supplement Iron defic iency anemia 68165216 D50.9 on supplement Recurrent urinary tract infection 240488862 N39.[address] Moffett to [place] [facility]- [facility]. Hood at [facility] Postherpet ic neuralgia 0442744 B02.29 Get appointmen t with pain management Is not able to tolerate any gabapentin due to significan t side effects [id number] Shelby rogers MD [facility] Internal Med [facility] [address] [place] [address] 10/05/2023 14:08:56 10/05/2023 14:48:20 Screening - NAD 648022619 Z13.9 C-scope: Get cologuard, was told to do this by her prior PCP, today 10/05/2023 states that she does not want to do any testing, understand s the risks for CRC and that she has anemia Mammogram: Declined, does not do this, denies any complaints PAP: Not doing thisDEXA: Get this done Get yearly flu shot, get tdap if not doneUTD on PCV #13 09/04/2019 can do PCV #23Can do shingrixCa n do COVID 19 boostersCa n do RSV vaccine RTC in 4 months, do labs, ER if worse, she and her friend did verbalize her understand ing of the above Screening for osteoporosis 095632639 Z13.820 Paroxysmal atrial fibrillation 205836687 I48.0 On diltiazem 120mg dailyOn flecainide 100mg bidOn mag oxOn xarelto 15mg daily Sees Dr Hanks cardiology Vertigo 061041274 R42 On meclizine PRN, seen by Dr Swain in the past Gastroesop hageal reflux disease without esophagitis 887208691 K21.9 On omeprazole , take as needed, does not want any EGD Hyperlipidemia 98765663 E78.5 On pravastati n 20mg dailyGet labs Urinary incontinence 165 613579 R32 On myrbetriq 25mg dailySees urology Chronic ob structive pulmonary disease 15942839 J44.9 CTchest 09/08/[address] Kinaa koch HHNsOn levalbuter ol inhalerOn trelegyOn ventolin Anemia 084139512 D64.9 On ironGet labs Anxiety 57179229 F41.9 Used to be on lexapro, hydroxyzin eNot suicidal or homicidal [id number] Shelby rogers MD [facility] Internal Med [facility] [address] [place] [address] 02/08/2024 14:00:46 02/08/2024 14:29:27 Screening - NAD 967565661 Z13.9 C-scope: Get cologuard, was told to do this by her prior PCP, today 10/05/2023 states that she does not want to do any testing, understand s the risks for CRC and that she has anemia Mammogram: Declined, does not do this, denies any complaints PAP: Not doing thisDEXA: Get this done Get yearly flu shot, get tdap if not doneUTD on PCV #13 09/04/2019 can do PCV #23Can do shingrixCa n do COVID 19 boostersCa n do RSV vaccine RTC in 4 months, do labs, ER if worse, she and her friend did verbalize her understand ing of the above Screening for osteoporosis 923698682 Z13.820 Paroxysmal atrial fibrillation 748556217 I48.0 On diltiazem 120mg dailyOn flecainide 100mg bidOn losartan 25mg daily, given by Dr Vahe HUFF 01/05/2024 On mag oxOn xarelto 15mg daily Sees Dr Hanks cardiology Vertigo 663133520 R42 On meclizine PRN, seen by Dr Swain in the past Gastroesop hageal reflux disease without esophagitis 527937599 K21.9 On omeprazole , take as needed, does not want any EGD Hyperlipidemia 25194909 E78.5 On pravastati n 20mg dailyGet labs Urinary incontinence 165 479888 R32 On myrbetriq 25mg dailySees urology Chronic ob structive pulmonary disease 86697570 J44.9 CTchest 09/08/[address] Kiana koch HHNsOn levalbuter ol inhalerOn trelegyOn ventolin Anemia 374436043 D64.9 On ironGet labs Anxiety 88610966 F41.9 Used to be on lexapro, hydroxyzin eNot suicidal or homicidal Chronic ki dney disease 701221817 N18.9 On calcitriol On vit d weeklySees Dr Vahe HUFF Acute urin ephraim tract infection 594679376 N39.0 Has noted and odor and the urine is dark, has been treated with cipro in the past, also sees Dr Vahe HUFF, and has seen urology in the past too, will start on cipro 500mg po bid for 7 days, rest, notify if not better, then may need to see urology for radiation oncology manager suppressiv e antibiotic s Chronic pain syndrome 37 2475480 G89.4 D/t having shingles in the past, now has chronic pain in the 'skin', wants a referral to pain management , will refer to Dr Starks [id number] Shelby rogers MD [facility] Internal Med [facility] [address] [facility], [facility] [address] [place] [address] 05/23/2024 15:43:58 05/23/2024 16:30:14 Screening - NAD 912963438 Z13.9 C-scope: Get cologuard, was told to do this by her prior PCP, today 10/05/2023 states that she does not want to do any testing, understand s the risks for CRC and that she has anemia Mammogram: Declined, does not do this, denies any complaints PAP: Not doing thisDEXA: Get this done Get yearly flu shot, get tdap if not doneUTD on PCV #13 09/04/2019 can do PCV #23Can do shingrixCa n do COVID 19 boostersCa n do RSV vaccine RTC in 4 months, do labs, ER if worse, she and her friend did verbalize her understand ing of the above Screening for osteoporosis 785088023 Z13.820 Paroxysmal atrial fibrillation 544594686 I48.0 On diltiazem 120mg dailyOn flecainide 100mg bidOn losartan 25mg daily, given by Dr Vahe HUFF 01/05/2024 On mag oxOn xarelto 15mg daily Sees Dr Hanks cardiology 12/19/2023 , f/u in 6 months Vertigo 358921369 R42 On meclizine PRN, seen by Dr Swain in the past Gastroesop hageal reflux disease without esophagitis 917759221 K21.9 On omeprazole , take as needed, does not want any EGD Hyperlipidemia 19118589 E78.5 On pravastati n 20mg dailyGet labs Urinary incontinence 165 732112 R32 On myrbetriq 25mg dailySees urology Chronic ob structive pulmonary disease 40906004 J44.9 CT chest 09/08/2023 CT chest 02/20/2024 : pneumonia, severe emphysema Sees Dr Paz 12/28/2023 On ipratropiu m HHNsOn levalbuter ol inhalerNot on trelegy, as it made her mouth dry, will start on breztri, and she will discuss this with her pulmonolog ist alsoOn ventolin Anemia 396968352 D64.9 On ironGet labs Anxiety 22333040 F41.9 Used to be on lexapro, hydroxyzin eNot suicidal or homicidal Chronic ki dney disease 895261169 N18.9 On calcitriol On vit d weeklySees Dr Vahe HUFF Chronic pain syndrome 37 0324132 G89.4 D/t having shingles in the past, now has chronic pain in the 'skin', wants a referral to pain management , will refer to Dr Starks Hyperglycemia 72476149 R 73.9 Get labs [id number] Shelby rogers MD [facility] Internal [facility] [address] [facility], [facility] [address] [place] [address] 07/30/2024 16:24:12 07/30/2024 17:18:53 Screening - NAD 520395853 Z13.9 C-scope: Get cologuard, was told to do this by her prior PCP, today 10/05/2023 states that she does not want to do any testing, understand s the risks for CRC and that she has anemia Mammogram: Declined, does not do this, denies any complaints PAP: Not doing thisDEXA: Get this done Get yearly flu shot, get tdap if not doneUTD on PCV #13 09/04/2019 can do PCV #23Can do shingrixCa n do COVID 19 boostersCa n do RSV vaccine RTC in 2 months, do labs, ER if worse, she and her CG did verbalize her understand ing of the above Screening for osteoporosis 753772754 Z13.820 Paroxysmal atrial fibrillation 060495753 I48.0 On diltiazem 120mg dailyOn flecainide 100mg bidOn losartan 25mg daily, given by Dr Vahe HUFF 01/05/2024 On mag oxOn xarelto 15mg daily Sees Dr Hanks cardiology 12/19/2023 , f/u in 6 monthsKris fab Hill MATERIALS CLERK 07/03/2024 Advised today 07/30/2204 that she should go to the ER for her weakness and dizziness, she has refused, she does agree with her daughter to call the cardiologi st and get an apt PATY, advised to go to the ER if any symptoms worsen! Vertigo 468240298 R42 OV 07/30/2204 :On meclizine PRN, seen by Dr Swain in the [facility] ed to go to the ER with the dizzy spells or get EKG but she has adamantly refused would like to get on the meclizine Gastroesop hageal reflux disease without esophagitis 370790173 K21.9 On omeprazole , take as needed, does not want any EGD Hyperlipidemia 00145315 E78.5 On pravastati n 20mg dailyGet labs Urinary incontinence 165 322112 R32 On myrbetriq 25mg dailySees urology Chronic ob structive pulmonary disease 82244770 J44.9 CT chest 09/08/2023 CT chest 02/20/2024 : pneumonia, severe emphysema Sees Dr Paz 12/28/2023 On ipratropiu m HHNsOn levalbuter ol inhalerNot on trelegy, as it made her mouth dry, will start on breztri, and she will discuss this with her pulmonolog ist alsoOn ventolin Anemia 251900895 D64.9 On ironGet labs Anxiety 49977965 F41.9 Used to be on lexapro, hydroxyzin eNot suicidal or homicidal Chronic ki dney disease 580517203 N18.9 On calcitriol On vit d weeklySees Dr Vahe HUFF Chronic pain syndrome 37 1909009 G89.4 D/t having shingles in the past, now has chronic pain in the 'skin', wants a referral to pain management , will refer Hyperglycemia 40189880 R 73.9 Get labs Adult heal th examination 828408923 Z00.00 Screening for disorder 717227025 Z13.9 Administra tion of influenza vaccine 01020675 Z23 Health Concerns Section Related Observation LastModified by Organization Detai ls LastModified Time None Recorded Concern Status LastModified by Organization Details LastModified Time None Recorded Advance Directives Directive N: Payers Encounter Date Sequence Insurance Name Policy Number Policy Rodríguez Covered Member ID Rodríguez Member ID Guarantor Name 09/12/2023 1 [employer] [place] [employer] (MEDICARE - MEDICAID REPLACEMENT HMO) [id number] 0003 Sofi Sommerslers [id number] Sofi Zeng 10/05/2023 1 [employer] [place] [employer] (MEDICARE - MEDICAID REPLACEMENT HMO) [id number] 0003 Sofi Sommerslers [id number] Sofi Karon SommersAzucena 02/08/2024 1 [employer] [place] [employer] [place]MEDICARE - MEDICAID REPLACEMENT HMO) [id number] 0003 Sofi Karon Azucena [id number] Sofi Sommerslers 05/23/2024 1 [employer] [place] [employer] (MEDICARE - MEDICAID REPLACEMENT HMO) [id number] 0003 Sofi Sommerslers [id number] Sofi Sommerslers 07/30/2024 1 [employer] [place] [employer] (MEDICARE - MEDICAID REPLACEMENT HMO) [id number] 0003 Sofi Sommerslers [id number] Sofi Zeng Notes Date Note Type Note Provider Name and Address Organization Details Recorded Time 09/12/2023 text/html This is a telehe alth visit conducted via phone call audio only. Patient agrees to telehealth visit. Due to the weather, patient would like a telehealth visit today. She reports she saw her ecological technical officer last week. They had repeated her CT scan and it was improved since her last CT. She continues to follow them for her COPD. She did see Ortho for the right shoulder pain. They did not feel like it was musculoskeletal in nature because she had good range of motion. They felt this was more so related to post herpetic neuralgia. She is interested in seeing Pain Management to see if there are any injection options for her. While she was in the hospital a few months ago, she was trialed on gabapentin and she had significant side effects with that, so we are limited on oral meds. She is now set up with Urology up in [place] at [facility]. She did get her wheelchair delivered. She reports it was delivered last week. She reports she is still having issues with the hearing loss which is causing some dizziness. This is continued since she was in the hospital in the fall. She saw ENT while she was admitted as well as several times outpatient as they were trying some injections to help with the hearing loss. She reports the injections failed and she is due to follow-up with ENT again. She plans to call and make that appointment. Silver Allen, ASSESSMENT ANALYST-C [address], [place], [address], [employer] 09/12/2023 13:02:01 10/05/2023 text/html OV 10/05/2023: H ere to establish care Past Hx:TonyD Ex smoker Reviewed social family and surgical history She is doing well today, here with her friend Uli, no new labs Shelby Julio MD [address], [address], [place], [address], [employer] 10/12/2023 18:44:35 02/08/2024 text/html OV 10/05/2023: H ere to establish carePast Hx:SergoGERD Ex smokerReviewed social family and surgical history She is doing well today, here with her friend Uli, no new labs OV 02/08/2024: Here for her f/u apt, no new labs Shelby Julio MD [address], [place], [address], [employer] 02/19/2024 19:00:46 05/23/2024 text/html OV 10/05/2023: H ere to establish carePast Hx:SergoGERD Ex smokerReviewed social family and surgical history She is doing well today, here with her friend Uli, no new labs OV 02/08/2024: Here for her f/u apt, no new labs OV 05/23/2024: Here for her routine apt, she is doing well today, she did do the labs Shelby Julio MD [address], [address], [place], [address], [employer] 05/23/2024 16:32:32 07/30/2024 text/html OV 10/05/2023: H ere to establish carePast Hx:A.fibCOPDUIHLDGERD Ex smokerReviewed social family and surgical history She is doing well today, here with her friend Uli, no new labs OV 02/08/2024: Here for her f/u apt, no new labs OV 05/23/2024: Here for her routine apt, she is doing well today, she did do the labs OV 07/30/2024: Here for her routine apt, she states that she has been feeling weak and dizzy and shaking, denies any chest pain or shortness of breath, no palpitations or syncope, no headaches, feels that since her getting shingles she has been dizzy Shelby Juilo MD [address] [place] [address], [place] [address], [place], [address], [place] [facility] judo 07/31/2024 20:27:26 OBGyn Episode No OBEpisode recorded.
--- OUTSIDE RECORDS SUMMARY | 2024-10-12 16:53 | XMS_ITS | Clinical Summary ---
Author Organization [facility] Address [address] [place] [address] Phone Care Team Providers Care Optometrist Owner Name Role Phone Provider, Unknown Primary Care Provider Robert Keenan APRN, INVOICE CODER Unavailable [phone] Allergies Active Allergy Reactions Criticality Noted Date Comments Codeine Itching 08/02/2017 Doxycycline Other (see Comments) 06/24/2019 Gabapentin Anaphylaxis 08/01/2023 Couldn't breath Medications dilTIAZem 120 MG Tablet Take 120 mg by mouth. 3 Active flecainide (TAMBOCOR) 100 MG Tablet Take 1 Tablet by mouth 2 times daily. 3 Active FeroSul 325 (65 Fe) MG Tablet Take 325 mg by mouth 2 times daily. 3 Active MAGnesium-Oxide 400 (240 Mg) MG Tablet Take 400 mg by mouth daily. 3 Active Mirabegron ER 25 MG TABLET SR 24 HR Take 25 mg by mouth. 3 Active omeprazole (PriLOSEC) 20 MG CAPSULE DELAYED RELEASE Take 20 mg by mouth. Active pravastatin (PRAVACHOL) 20 MG Tablet pravastatin 20 mg tablet 1 Active rivaroxaban (XARELTO) 15 MG Tablet Take 15 mg by mouth. 2 Active latanoprost (XALATAN) 0.005 % Solution INSTILL 1 DROP INTO EACH EYE AT BEDTIME 3 Active ergocalciferol (VITAMIN D) 04836 UNIT Capsule Take 1.25 mg by mouth once a week. 3 Active cyanocobalamin (VITAMIN B-12) 1000 MCG/ML Solution Inject 1 mL every month by subcutaneous route. 3 Active albuterol (PROVENTIL, VENTOLIN) (2.5 MG/3ML) 0.083% Nebulizer Soln USE 1 VIAL IN NEBULIZER THREE TIMES DAILY DIRECTED 2 Active Fluticasone-Ume clidin-Vilant (Trelegy Ellipta) 100-62.5-25 MCG/ACT AEROSOL POWDER, BREATH ACTIVATED INHALE 1 PUFF ONCE DAILY DIRECTED 2 Active OXYGEN TANK PORTABLE by Does not apply route. Use as directed Active Social History Tobacco Use Types Packs/Day Years Used Date Smoking Tobacco: Never Assessed Tobacco Cessation:Counseling Given: No Comments Unknown Sex and Gender Information Value Date Recorded Sex Assigned at Not on file Legal Sex Female 9:04 AM CDT Gender Identity Not on file Sexual Orientation Not on file Last Filed Vital Signs Vital Sign Reading Time Taken Comments Blood Pressure 151/76 08/01/2023 2:05 PM FOOD SAFETY COORDINATOR Pulse 90 08/01/2023 2:05 PM FOOD SAFETY COORDINATOR Temperature 37.1 C (98.8 F) 08/01/2023 2:05 PM FOOD SAFETY COORDINATOR Respiratory Rate 19 08/01/2023 2:05 PM FOOD SAFETY COORDINATOR Oxygen Saturation 93% 08/01/2023 2:05 PM FOOD SAFETY COORDINATOR Inhaled Oxygen Concentration - - Weight 43.1 kg (95 lb) 08/01/2023 2:05 PM FOOD SAFETY COORDINATOR Height 154.9 cm (5' 1 ) 08/01/2023 2:05 PM FOOD SAFETY COORDINATOR Body Mass Index 17.95 08/01/2023 2:05 PM FOOD SAFETY COORDINATOR Plan of Treatment Health Maintenance Due Date Last Done Comments DEXA Bone Density 1950 Hepatitis C Virus (HCV) Screening 1950 TdaP Immunization 1950 Zoster Immunization (1 of 2) 1998 Respiratory Syncytial Virus (RSV) Immunization (Adult) (1 - 1-dose 75+ series) 2023 Influenza Immunization (#1) 2024 10/0 10/2022, 07/18/2022, 07/06/2021, Additional history exists SARS-COV-2 Immunization ( season) 2024 12/29/2020, 12/01/2020 Pneumococcal Immunization (50+ years) Completed 09/04/2019, 07/30/2018 Hepatitis B Immunization Aged Out No longer eligible based on patient's age to complete this topic Meningococcal Immunization (ACWY) Aged Out No longer eligible based on patient's age to complete this topic Rotavirus Immunization Aged Out No lo nger eligible based on patient's age to complete this topic Insurance MEDICARE C [place] Care Teams Optometrist Owner Relationship Specialty Start Date End Date Provider, Unknown UNKNOWN PCP - General 08/01/23 Robert Kennedy, LITHOGRAPHIC GENERAL WORKER, INVOICE CODER [address] [place] [address] Nurse Practitioner Advanced Practice Nurse 07/22/23
--- OUTSIDE RECORDS SUMMARY | 2024-10-12 16:53 | XMS_ITS | Referral Summary ---
Author Organization [facility] [place] [address] [facility] [address] [facility] [address] [place] [address] Care Team Providers Care Aoc Operations Intelligence Officer Name Role Phone Emile Julio MD Primary [...] hearing loss, asymmetrical 023 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/14/2022 Social History Tobacco Use Types Packs/Day Years Used Date Smoking Tobacco: Former Cigarettes 1 40 1 10/05/1981 - 08/04/2022 Tobacco Cessation:Counseling Given: Not Answered Personal Safety Answer Date Recorded Getting School Help Needed Not on file 08/24 Comments Unknown Sex and Gender Information Value Date Recorded Sex Assigned at Not on file Legal Sex Female 11:13 AM DIGITAL MEDIA STRATEGIST Gender Identity Not on file Sexual Orientation [...] 07/03/2024 2:51 PM CDT Plan of Treatment Not on file Insurance [facility] Care Teams Aoc Operations Intelligence Officer Relationship Specialty Start Date End Date Emile Julio MD [address] [facility] [address] [place] [address] PCP - General Internal Medicine 12/19/23
--- OUTSIDE RECORDS SUMMARY | 2024-10-12 16:53 | XMS_ITS ---
Author Organization [facility] Address [id number] [place] [address] Care Team Providers Care Test Worker Name Role Phone Corey Cotter Unavailable [phone] MEDICATIONS Medication SIG (Take, Route, Frequency, Duration) Notes Start Date End Date Status Myrbetriq 25 MG 1 tablet Orally Once a day for 90 day(s) 01/05/2024 09/30/2024 Active Calcitriol 0.25 MCG 1 capsule Orally Onc e a day for 90 day(s) 01/05/2024 09/30/2024 Active Ergocalciferol 1.25 MG (30810 UT) 1 capsule Orally Once a week for 90 day(s) 01/05/2024 09/30/2024 Active Cipro 250 MG 1 tablet Orally ever y 12 hrs for 10 days 01/05/2024 01/15/2024 Active Losartan Potassium 25 MG 1 tablet Orally Once a day for 90 day(s) 01/05/2024 Active Encounters Encounter Location Date Provider Diagnosis [place] [facility] [address] [facility] [address] [place] [address] 01/05/2024 Corey Cotter PLAN OF TREATMENT Medication Medication Name Sig Start Date Stop Date Notes Myrbetriq 25 MG 1 tablet Orally Once a day for 90 day(s) 01/05/2024 09/30/2024 Calcitriol 0.25 MCG 1 capsule Orally Onc e a day for 90 day(s) 01/05/2024 09/30/2024 Ergocalciferol 1.25 MG (5000 0 UT) 1 capsule Orally Once a week for 90 day(s) 01/05/2024 09/30/2024 Cipro 250 MG 1 tablet Orally ever y 12 hrs for 10 days 01/05/2024 01/15/2024 Losartan Potassium 25 MG 1 tablet Orally Once a day for 90 day(s) 01/05/2024 Progress Notes * Carolyn YEBOAHB:1950 (73 yo F)Acc No.[id number]:01/05/2024 Patient: Sofi YEBOAH :1950 Age:73 Y Sex:Female Address:[address] [place] [address] * Refills Start Myrbetriq Tablet Extended Release 24 Hour, 25 MG, Orally, 90 Tablet, 1 tablet, Once a day, 90 day(s), Refills=2 Start Ergocalciferol Capsule, 1.25 MG (32888 UT), Orally, 13, 1 capsule, Once a week, 90 day(s), Refills=2 Start Calcitriol Capsule, 0.25 MCG, Orally, 90 Capsule, 1 capsule, Once a day, 90 day(s), Refills=2 Start Losartan Potassium Tablet, 25 MG, Orally, 90 Tablet, 1 tablet, Once a day, 90 day(s), Refills=2 Start Cipro Tablet, 250 MG, Orally, 20, 1 tablet, every 12 hrs, 10 days * true * Date:
--- OUTSIDE RECORDS SUMMARY | 2024-10-12 16:54 | XMS_ITS | Data Portability ---
Author Organization [facility] M[facility]enna [facility] Address [address] [place] [address] Care Team Providers Care Geopolitics Teacher Name Role Phone LANA FOWLER Competitive Intelligence Analyst [phone] SAMIR DEL CID Plastic/Reconstructive Surgeon DEBBIE OMALLEY Vault Keeper Assessment No assessment recorded. Plan of Treatment Reminders Order Date Submit Date Provider Last Modified By Organization Details Last Modified Time Details Appointments None recorded. Lab lipid panel, serum 2017 018 JONO [facility], [address], [place], [address], 9 06:21:00 CMP, serum or plasma 2017 018 [email or web address] [facility], [address], [place], [address], 8 13:40:40 CMP, serum or plasma 2017 018 [email or web address] [facility], [address], [place], [address], 8 13:40:40 CBC w/ auto diff 2018 019 JONO [facility], [address], [place], [address], 9 06:34:07 TSH + free T4, serum 2018 019 JONO [facility], [address] [facility], [address], [place], [address], 9 06:34:06 vitamin B12 + folate, serum or blood 2018 019 JONO [facility], [address] [facility], [address], [place], [address], 9 06:34:07 Referral plastic surgeon referral - Please call patient to schedule appt. Thank you 2017 018 JONO Del Cid MD, [address] [place], [address], 9 13:19:57 rheumatolo gist referral - Please call patient to schedule appt. Thank you 2018 019 JONO Wang MD, [address] [facility] [address], [address], 9 19:51:38 Procedures None recorded. Surgeries None recorded. Imaging None recorded. Medication Orders cyprohepta dine 4 mg tablet [email or web address] [facility], [address] [place] [address], [address], 8 16:02:26 Ventolin HFA 90 mcg/actuat ion aerosol inhaler [address] [facility], [address] [place], [address], 8 16:49:28 Ventolin HFA 90 mcg/actuat ion aerosol inhaler [address] [facility] [address], [address] [place] [address], [address], 8 16:28:56 pravastati n 20 mg tablet [address] [facility] [address], [address] [place] [address], [address], 8 15:37:52 Ventolin HFA 90 mcg/actuat ion aerosol inhaler 2017 018 [facility] [address], [address] [place] [address], [address], 8 15:37:51 pravastati n 20 mg tablet 2018 019 [facility] [address], [address] [place] [address], [address], 9 17:03:22 Ventolin HFA 90 mcg/actuat ion aerosol inhaler 2018 [facility] [address], [address] [place] [address], [address], 9 17:03:18 Anoro Ellipta 62.5 mcg-25 mcg/actuat ion powder for inhalation 2018 019 [facility] [address], [address] [place] [address], [address], 9 17:03:19 pravastati n 20 mg tablet 2018 019 [facility] [address], [address] [place] [address], [address], 9 15:33:38 Ventolin HFA 90 mcg/actuat ion aerosol inhaler 2018 019 [facility] [address], [address] [place] [address], [address], 9 15:33:42 Patient TargetsNo targets recorded. Patient Instructions Encounter Date Encounter Id Patient Instructions Last Modified By Organization Details Last Modified Time 09/29/2017 [id number] chronic obstructive pulmonary disease (COPD): care instructions sieh Not available 09/29/2017 16:49:25 learning about copd and how to prevent lung infections si Not available 09/29/2017 16:49:25 01/24/2018 [id number] chronic obstructive pulmonary disease (COPD): care instructions sieh Not available 01/24/2018 16:28:10 learning about copd and how to prevent lung infections si Not available 01/24/2018 16:28:10 07/30/2018 [id number] learning about high blood pressure sieh Not available 07/30/2018 15:31:58 chronic obstructive pulmonary disease (COPD): care instructions si Not available 07/30/2018 15:31:58 learning about copd and how to prevent lung infections si Not available 07/30/2018 15:31:58 01/18/2019 [id number] osteoarthritis: care instructions si Not available 01/18/2019 17:06:58 chronic obstructive pulmonary disease (COPD): care instructions si Not available 01/18/2019 17:03:11 learning about copd and how to prevent lung infections si Not available 01/18/2019 17:03:11 07/29/2019 [id number] influenza (flu) vaccine: care instructions si Not available 07/29/2019 15:33:29 learning about high blood pressure si Not available 07/29/2019 15:33:30 chronic obstructive pulmonary disease (COPD): care instructions si Not available 07/29/2019 15:33:29 learning about copd and how to prevent lung infections si Not available 07/29/2019 15:33:30 rheumatoid arthritis diet: care instructions sieh Not available 07/29/2019 15:33:30 Rheumatoid Arthritis (RA): Care Instructions sieh Not available 07/29/2019 15:33:29 Reason for Referral Plastic Surgeon Referral for Change in skin lesion Please call patient to schedule appt. Thank you Referring Physician: Silverio Gutierrez, Internal Medicine, Encounter Date: 07/30/2018 Competitive Intelligence Analyst Referral for Osteoarthritis Please call patient to schedule appt. Thank you Referring Physician: Silverio Gutierrez, Internal Medicine, Encounter Date: 01/18/2019 Results Created Date Observation Date Name Description Value Unit Range Abnormal Flag Note LastModifiedBy Organization Detail LastModifiedTime 10/18/19 19 10/19/2018 CMP, serum or plasm a glucose 86 mg/dL 65-99 Not Available [facility] ([facility]) [address] [place], [address], 10/19/2018 06:21:00 10/18/1910/19/2018 CMP, serum or plasm a BUN 16 mg/dL 8-27 Not Available [facility] ([facility]) [address] [place], [address], 10/19/2018 06:21:00 10/18/1910/19/2018 CMP, serum or plasm a creatinine 0.76 mg/dL 0.57-1 .00 Not Available [facility] ([facility]) [address] [place], [address], 10/19/2018 06:21:00 10/18/1910/19/2018 CMP, serum or plasm a eGFR if nonafricn AM 80 mL/mi n/1.7 3 >59 Not Available [facility] ([facility]) [address] [place], [address], 10/19/2018 06:21:00 10/18/19 19 10/19/2018 CMP, serum or plasm a eGFR if africn AM 92 mL/mi n/1.7 3 >59 Not Available [facility] ([facility]) [address] [place], [address], 10/19/2018 06:21:00 10/18/1910/19/2018 CMP, serum or plasm a BUN/creatini ne ratio 21 12-28 Not Available [facility] ([facility]) [address] [place], [address], 10/19/2018 06:21:00 10/18/1910/19/2018 CMP, serum or plasm a sodium 142 mmol/ L 134-14 4 Not Available [facility] ([facility]) [address] [facility] [place], [address], 10/19/2018 06:21:00 10/18/1910/19/2018 CMP, serum or plasm a potassium 3.7 mmol/ L 3.5-5. 2 Not Available [facility] ([facility]) [address] [facility] [place], [address], 10/19/2018 06:21:00 10/18/1910/19/2018 CMP, serum or plasm a chloride 100 mmol/ L 96-106 Not Available [facility] ([facility]) [address] [facility] [place], [address], 10/19/2018 06:21:00 10/18/1910/19/2018 CMP, serum or plasm a carbon dioxide, total 27 mmol/ L 20-29 Not Available [facility] ([facility]) [address] [place], [address], 10/19/2018 06:21:00 10/18/1910/19/2018 CMP, serum or plasm a calcium 10.1 mg/dL 8.7-10 .3 Not Available [facility] ([facility]) [address] [facility] [place], [address], 10/19/2018 06:21:00 10/18/1910/19/2018 CMP, serum or plasm a protein, total 7.5 g/dL 6.0-8. 5 Not Available [facility] ([facility]) [address] [facility] [place], [address], 10/19/2018 06:21:00 10/18/1910/19/2018 CMP, serum or plasm a albumin 4.4 g/dL 3.5-4. 8 Not Available [facility] ([facility]) [address] [facility] [place], [address], 10/19/2018 06:21:00 10/18/1910/19/2018 CMP, serum or plasm a globulin, total 3.1 g/dL 1.5-4. 5 Not Available [facility] ([facility]) [address] [facility] [place], [address], 10/19/2018 06:21:00 10/18/1910/19/2018 CMP, serum or plasm a A/G ratio 1.4 1.2-2. 2 Not Available [facility] ([facility]) [address] [facility] [place], [address], 10/19/2018 06:21:00 10/18/1910/19/2018 CMP, serum or plasm a bilirubin, total 0.7 mg/dL 0.0-1. 2 Not Available [facility] ([facility]) [address] [facility], [place], [address], 10/19/2018 06:21:00 10/18/1910/19/2018 CMP, serum or plasm a alkaline phosphatase 89 IU/L 39-117 Not Available [facility] ([facility]) [address] [place], [address], 10/19/2018 06:21:00 10/18/1910/19/2018 CMP, serum or plasm a AST (SGOT) 15 IU/L 0-40 Not Available [facility] ([facility]) [address] [place], [address], 10/19/2018 06:21:00 10/18/1910/19/2018 CMP, serum or plasm a ALT (SGPT) 8 IU/L 0-32 Not Available [facility] ([facility]) [address] [facility] [place], [address], 10/19/2018 06:21:00 10/18/1910/19/2018 lipid panel , serum cholesterol, total 164 mg/dL 100-19 9 Not Available [facility] ([facility]) [address] [place], [address], 10/19/2018 06:21:00 10/18/1910/19/2018 lipid panel , serum triglyceride s 72 mg/dL 0-149 Not Available [facility] ([facility]) [address] [place], [address], 10/19/2018 06:21:00 10/18/1910/19/2018 lipid panel , serum HDL cholesterol 64 mg/dL >39 Not Available [facility] ([facility]) [address] [facility], [place], [address], 10/19/2018 06:21:00 10/18/1910/19/2018 lipid panel , serum VLDL cholesterol elaine 14 mg/dL 5-40 Not Available [facility] ([facility]) [address] [facility], [place], [address], 10/19/2018 06:21:00 10/18/1910/19/2018 lipid panel , serum LDL cholesterol calc 86 mg/dL 0-99 Not Available [facility] ([facility]) [address] [place], [address], 10/19/2018 06:21:00 10/18/1910/19/2018 lipid panel , serum comment: DEHORNER Not Available [facility] ([facility]) [address] [place], [address], 10/19/2018 06:21:00 10/18/1910/19/2018 lipid panel , serum LDL/HDL ratio 1.3 ratio 0.0-3. 2 LDL/H DL Ratio Men Women 1/2 Avg.R isk 1.0 1.5 Avg.R isk 3.6 3.2 2X Avg.R isk 6.2 5.0 3X Avg.R isk 8.0 6.1 Not Available [facility] ([facility]) [address] [place], [address], 10/19/2018 06:21:00 02/16/2002/16/2019 TSH + free T4, serum TSH 1.260 uIU/m L 0.450- 4.500 Not Available [facility] ([facility]) [address] [facility] [place], [address], 02/16/2019 06:34:06 02/16/2002/16/2019 TSH + free T4, serum T4,free(dire ct) 1.43 NG/dL 0.82-1 .77 Not Available [facility] ([facility]) [address] [place], [address], 02/16/2019 06:34:06 02/16/2002/16/2019 CBC w/ auto diff WBC 7.5 x10e3 /uL 3.4-10 .8 Not Available [facility] ([facility]) [address] [place], [address], 02/16/2019 06:34:07 02/16/2002/16/2019 CBC w/ auto diff RBC 4.70 x10e6 /uL 3.77-5 .28 Not Available [facility] ([facility]) [address] [place], [address], 02/16/2019 06:34:07 02/16/2002/16/2019 CBC w/ auto diff hemoglobin 14.5 g/dL 11.1-1 5.9 Not Available [facility] ([facility]) [address] [place], [address], 02/16/2019 06:34:07 02/16/2002/16/2019 CBC w/ auto diff hematocrit 43.7 % 34.0-4 6.6 Not Available [facility] ([facility]) [address] [place], [address], 02/16/2019 06:34:07 02/16/2002/16/2019 CBC w/ auto diff MCV 93 fL 79-97 Not Available [facility] ([facility]) [address] [place], [address], 02/16/2019 06:34:07 02/16/20 19 02/16/2019 CBC w/ auto diff MCH 30.9 pg 26.6-3 3.0 Not Available [facility] ([facility]) [address] [facility], [place], [address], 02/16/2019 06:34:07 02/16/20 19 02/16/2019 CBC w/ auto diff MCHC 33.2 g/dL 31.5-3 5.7 Not Available [facility] ([facility]) [address] [facility], [place], [address], 02/16/2019 06:34:07 02/16/20 19 02/16/2019 CBC w/ auto diff RDW 12.4 % 12.3-1 5.4 Not Available [facility] ([facility]) [address] [facility], [place], [address], 02/16/2019 06:34:07 02/16/20 19 02/16/2019 CBC w/ auto diff platelets 239 x10e3 /uL 150-45 0 Not Available [facility] ([facility]) [address] [facility], [place], [address], 02/16/2019 06:34:07 02/16/20 19 02/16/2019 CBC w/ auto diff neutrophils 54 % not estab. Not Available [facility] ([facility]) [address] [facility], [place], [address], 02/16/2019 06:34:07 02/16/20 19 02/16/2019 CBC w/ auto diff lymphs 37 % not estab. Not Available [facility] ([facility]) [address] [facility], [place], [address], 02/16/2019 06:34:07 02/16/20 19 02/16/2019 CBC w/ auto diff monocytes 7 % not estab. Not Available [facility] ([facility]) [address] [facility], [place], [address], 02/16/2019 06:34:07 02/16/2002/16/2019 CBC w/ auto diff eos 2 % not estab. Not Available [facility] ([facility]) [address] [place], [address], 02/16/2019 06:34:07 02/16/2002/16/2019 CBC w/ auto diff basos 0 % not estab. Not Available [facility] ([facility]) [address] [facility], [place], [address], 02/16/2019 06:34:07 02/16/2002/16/2019 CBC w/ auto diff immature cells DEHORNER Not Available [facility] ([facility]) [address] [place], [address], 02/16/2019 06:34:07 02/16/2002/16/2019 CBC w/ auto diff neutrophils (absolute) 4.0 x10e3 /uL 1.4-7. 0 Not Available [facility] ([facility]) [address] [place], [address], 02/16/2019 06:34:07 02/16/2002/16/2019 CBC w/ auto diff lymphs (absolute) 2.8 x10e3 /uL 0.7-3. 1 Not Available [facility] ([facility]) [address] [place], [address], 02/16/2019 06:34:07 02/16/2002/16/2019 CBC w/ auto diff monocytes(ab solute) 0.6 x10e3 /uL 0.1-0. 9 Not Available [facility] ([facility]) [address] [place], [address], 02/16/2019 06:34:07 02/16/2002/16/2019 CBC w/ auto diff eos (absolute) 0.2 x10e3 /uL 0.0-0. 4 Not Available [facility] ([facility]) [address] [facility], [place], [address], 02/16/2019 06:34:07 02/16/2002/16/2019 CBC w/ auto diff baso (absolute) 0.0 x10e3 /uL 0.0-0. 2 Not Available [facility] ([facility]) [address] [facility], [place], [address], 02/16/2019 06:34:07 02/16/2002/16/2019 CBC w/ auto diff immature granulocytes 0 % not estab. Not Available [facility] ([facility]) [address] [facility], [place], [address], 02/16/2019 06:34:07 02/16/2002/16/2019 CBC w/ auto diff immature grans (abs) 0.0 x10e3 /uL 0.0-0. 1 Not Available [facility] ([facility]) [address] [facility], [place], [address], 02/16/2019 06:34:07 02/16/2002/16/2019 CBC w/ auto diff NRBC DEHORNER Not Available [facility] ([facility]) [address] [facility], [place], [address], 02/16/2019 06:34:07 02/16/2002/16/2019 CBC w/ auto diff hematology comments: DEHORNER Not Available [facility] ([facility]) [address] [facility], [place], [address], 02/16/2019 06:34:07 02/16/2002/16/2019 vitam in B12 + folat e, serum or blood vitamin B12 222 pg/mL 232-12 45 below low normal Not Available [facility] ([facility]) [address] [facility], [place], [address], 02/16/2019 06:34:07 02/16/2002/16/2019 vitam in B12 + folat e, serum or blood folate (folic acid), serum 18.8 NG/mL >3.0 A serum folat e moni ntrat ion of less than 3.1 ng/mL is consi dered to repre sent clini elaine defic iency . Not Available [facility] ([facility]) [address], [place], [address], 02/16/2019 06:34:07 11/11/19 18 11/10/2017 CT, abdom en + pelvi s, w/o contr ast No observ ation record ed. [facility] ([facility]) [address] [place], [address], 11/10/2017 15:24:55 01/13/20 18 01/12/2018 inter preta tion of autom atic heart failu re monit or data (PROC ) No observ ation record ed. [facility] [address], [place], [address], 01/15/2018 10:59:05 02/13/20 18 02/12/2018 XR, abdom en No observ ation record ed. [facility] ([facility]) [address] [place], [address], 02/12/2018 17:57:53 02/24/20 18 02/22/2018 cardi ac stres s test No observ ation record ed. [facility] [address], [place], [address], 02/26/2018 11:46:56 08/23/20 18 LDCT, chest , for lung cance r scree bhavna No observ ation record ed. [facility] ([facility]) [address] [place], [address], 09/26/2018 12:51:54 08/24/20 18 08/22/2018 LDCT, chest , for lung cance r scree bhavna No observ ation record ed. [facility] ([facility]) [address] [place], [address], 08/24/2018 16:47:23 09/27/19 19 09/26/2018 XR, hand No observ ation record ed. [facility] [address], [place], [address], 09/27/2018 16:46:50 04/23/20 19 04/23/2019 XR, chest , 2 view No observ ation record ed. [facility] ([facility]) [address] [place], [address], 04/25/2019 15:01:27 04/25/20 19 04/23/2019 jayjay r ECG patie nt diary * No observ ation record ed. [email or web address] [facility] [address], [place], [address], 04/25/2019 15:48:39 04/25/20 19 04/22/2019 jayjay r ECG patie nt diary * No observ ation record ed. [email or web address] [facility] [address], [place], [address], 04/25/2019 15:48:12 11/27/19 20 11/27/2019 jayjay r monit or No observ ation record ed. [facility] [address], [place], [address], 12/18/2019 13:12:58 12/19/19 20 12/19/2019 trans -thor acic echoc ardio gram (TTE) (PROC ) No observ ation record ed. [facility] [address], [place], [address], 12/19/2019 14:47:04 02/18/20 20 02/17/2020 CT, chest , w/o contr ast No observ [facility]ion [facility] ed[email or web address] [address] [place], [address], 02/18/2020 15:23:54 02/18/20 20 02/17/2020 CT, chest , w/o contr ast No observ ation record ed. [facility] (Imaging) [address] [place], [address], 02/18/2020 15:23:50 02/18/20 20 02/17/2020 CT, chest , w/o contr ast No observ ation record ed. [facility] ([facility]) [address] [place], [address], 02/18/2020 15:23:46 05/05/20 20 04/25/2020 jayjay r monit or No observ ation record ed. [facility] [address], [place], [address], 05/05/2020 14:55:23 05/19/20 20 05/19/2020 CT, chest , w/o contr ast No observ ation record ed. [facility] ([facility]) [address] [place], [address], 05/19/2020 18:22:37 06/30/20 20 06/22/2020 CT, abdom en + pelvi s, w/o contr ast No observ ation record ed. [facility] Not Available 2019 16:23:41 10/01/19 21 10/01/2020 XR, chest No observ ation record ed. [facility] [address] [place], [address], 10/01/2020 18:09:01 12/01/19 21 11/30/2020 LDCT, chest , for lung cance r scree bhavna No observ ation record ed. [facility] [address] [place], [address], 12/02/2020 11:47:25 09/11/19 22 09/11/2021 XR, chest No observ ation record ed. [facility] [address] [place], [address], 09/16/2021 14:05:52 Result Notes None recorded. Problems Name Problem SNOMED Code Status Onset Date Resolution Date Notes Provider Name and Address Organization Details Recorded Time Acute bronchitis 53996819 Active Not Available [facility] 3 10:05:56 Lump on finger 941036534 Active Not Available [facility] 3 10:05:56 Hyperlipidemi a 62809850 Active Not Available [facility] 3 10:05:57 Osteoporosis 32329177 Active Not Available [facility] 3 10:05:57 Chronic obstructive pulmonary disease 05004483 Active Not Available [facility] 3 10:05:56 Essential hypertension 96493838 Active Not Available [facility] 3 10:05:57 Degenerative joint disease of hand 75659448 Active Not Available [facility] 3 10:05:56 Problem Notes None recorded. Procedures Surgical History Date Name Laterality Status Provider Name and Address Organization Details Recorded Time Tubal Ligation completed Kusum Mason [facility] 07/22/2014 12:39:22 Caesarean Section completed Kusum Mason [facility] 07/22/2014 12:39:22 Imaging Results Imaging Date Name Status LastModified by Organization Details LastModified Time 11/10/2017 CT, abdomen + pelvis, w/o contrast completed [facility] ([facility]) [address] [place], [address], 11/10/2017 15:24:55 01/12/2018 interpretation of automatic heart failure monitor data (PROC) completed [facility] [address], [place], [address], 01/15/2018 10:59:05 02/12/2018 XR, abdomen completed [facility] [address] [place], [address], 02/12/2018 17:57:53 02/22/2018 cardiac stress test completed [facility] [address], [place], [address], 02/26/2018 11:46:56 08/23/2018 LDCT, chest, for lung cancer screening completed [address] ([facility]) [address] [place], [address], 09/26/2018 12:51:54 08/22/2018 LDCT, chest, for lung cancer screening completed [facility] ([facility]) [address] [place], [address], 08/24/2018 16:47:23 09/26/2018 XR, hand completed [place] [id number] [facility] [address], [place], [address], 09/27/2018 16:46:50 04/23/2019 XR, chest, 2 view completed [facility]) [address] [place], [address], 04/25/2019 15:01:27 04/23/2019 holter ECG patient diary* completed [email or web address] [facility] [address], [place], [address], 04/25/2019 15:48:39 04/22/2019 holter ECG patient diary* completed [email or web address] [facility] [address], [place], [address], 04/25/2019 15:48:12 11/27/2019 holter monitor completed [facility] [address], [place], [address], 12/18/2019 13:12:58 12/19/2019 trans-thoracic echocardiogram (TTE) (PROC) completed [facility] [address], [place], [address], 12/19/2019 14:47:04 02/17/2020 CT, chest, w/o contrast completed [facility] ([facility]) [address] [place], [address], 02/18/2020 15:23:54 02/17/2020 CT, chest, w/o contrast completed [facility] ([facility]) [address] [place], [address], 02/18/2020 15:23:50 02/17/2020 CT, chest, w/o contrast completed [facility] ([facility]) [address] [place], [address], 02/18/2020 15:23:46 04/25/2020 holter monitor completed [facility] [address], [place], [address], 05/05/2020 14:55:23 05/19/2020 CT, chest, w/o contrast completed [facility] ([facility]) [address] [place], [address], 05/19/2020 18:22:37 06/22/2020 CT, abdomen + pelvis, w/o contrast completed [facility] Information not available 06/30/2020 16:23:41 10/01/2020 XR, chest completed [facility] [address] [place], [address], 10/01/2020 18:09:01 11/30/2020 LDCT, chest, for lung cancer screening completed [facility] [address] [place], [address], 12/02/2020 11:47:25 09/11/2021 XR, chest completed [facility] [address] [place], [address], 09/16/2021 14:05:52 Procedure Notes None recorded. Medical Equipment None Reported. Allergies Allergen ID Allergen Name Allergen Category Reaction Reaction Severity Criticality Documentation Date Start Date Code Code System Note Provider Name and Address Organization Details Recorded Time 392 Product containin g penicilli n and antibioti c (product) medicatio n Not available Not available Not available 07/22/2014 11881 05 SNOMED cipro ok Not Available Not Available Not Available Medications Name Sig Start Date Stop Date Status Note LastModified by Organization Details LastModified Time latanoprost 0.005 % eye drops 07/29 completed Not Available Not Available Not Available prednisone 10 mg tablet active Not Available Not Available Not Available albuterol sulfate 2.5 mg/3 mL (0.083 %) solution for nebulizatio n USE 1 VIAL IN NEBULIZER THREE TIMES DAILY DIRECTED active Not Available Not Available No t Available azithromyci n 250 mg tablet TAKE 2 TABLETS BY MOUTH ON DAY 1 AND THEN TAKE 1 TABLET BY MOUTH ONCE A DAY ON DAY 2 THROUGH DAY 5 active Not Available Not Available No t Available metoprolol tartrate 100 mg tablet 02/02 completed Not Available Not Available Not Available metoprolol succinate ER 50 mg tablet,exte nded release 24 hr TAKE ONE TABLET BY MOUTH ONCE DAILY 09/29 completed Not Available Not Available Not Available alendronate 70 mg tablet Take 1 tablet every week by oral route before meals for 90 days. 09/29 completed Not Available Not Available Not Available prednisone 5 mg tablet 07/29 completed Not Available Not Available Not Available cyanocobala min (vit B-12) 1,000 mcg tablet Take 1 tablet every day by oral route as directed for 30 days. 07/29 completed Not Available Not Available Not Available ciprofloxac in 500 mg tablet 08/02 completed Not Available Not Available Not Available doxycycline monohydrate 100 mg tablet 07/29 completed Not Available Not Available Not Available tramadol 50 mg tablet 08/02 completed Not Available Not Available Not Available cyproheptad ine 4 mg tablet Take 1 tablet every day by oral route at bedtime for 30 days. 01/24 completed Not Available Not Available Not Available methotrexat e sodium 2.5 mg tablet TAKE 3 TABLETS BY MOUTH ONCE A WEEK active Not Available Not Available No t Available amlodipine 10 mg tablet 07/30 completed Not Available Not Available Not Available potassium citrate ER 10 mEq (1,080 mg) tablet,exte nded release 08/02 completed Not Available Not Available Not Available Trexall 10 mg tablet active Not Available Not Available No t Available losartan 25 mg tablet TAKE 1 TABLET BY MOUTH ONCE DAILY active Not Available Not Available No t Available diclofenac sodium 75 mg tablet,shanta yed release TAKE ONE TABLET BY MOUTH ONCE DAILY AFTER A MEAL active Not Available Not Available No t Available folic acid 1 mg tablet TAKE 1 TABLET BY MOUTH ONCE DAILY active Not Available Not Available No t Available Cartia XT 240 mg capsule,ext ended release 01/18 completed Not Available Not Available Not Available pravastatin 20 mg tablet TAKE 1 TABLET BY MOUTH ONCE DAILY WITH DINNER active Not Available Not Available No t Available mirtazapine 15 mg tablet 01/18 completed Not Available Not Available Not Available ergocalcife rol (vitamin D2) 1,250 mcg (50,000 unit) capsule Take 1 capsule every week by oral route as directed for 90 days. 09/29 completed Not Available Not Available Not Available levofloxaci n 500 mg tablet 07/29 completed Not Available Not Available Not Available cefdinir 300 mg capsule TAKE 1 CAPSULE BY MOUTH EVERY 12 HOURS DIRECTED FOR 7 DAYS active Not Available Not Available No t Available amoxicillin 875 mg-potassiu m clavulanate 125 mg tablet active Not Available Not Available Not Available Cartia XT 180 mg capsule,ext ended release 09/29 completed Not Available Not Available Not Available Ventolin HFA 90 mcg/actuati on aerosol inhaler INHALE 2 PUFFS BY MOUTH EVERY 4 HOURS NEEDED active Not Available Not Available No t Available Vitamin D3 25 mcg (1,000 unit) capsule Take 1 capsule every day by oral route for 30 days. 02/02 completed Not Available Not Available Not Available Klor-Con M10 mEq tablet,exte nded release 08/02 completed Not Available Not Available Not Available Sotalol AF 80 mg tablet TAKE 1 2 (ONE HALF) TABLET BY MOUTH TWICE DAILY active Not Available Not Available No t Available nitrofurant oin monohydrate /macrocryst als 100 mg capsule active Not Available Not Available Not Available folic acid active Not Available Not Av ailable Not Available Symbicort 160 mcg-4.5 mcg/actuati on HFA aerosol inhaler Inhale 2 puffs twice a day by inhalatio n route as directed for 30 days. 09/29 completed Not Available Not Available Not Available diclofenac 1 % topical gel 07/29 completed Not Available Not Available Not Available Dulera 200 mcg-5 mcg/actuati on HFA aerosol inhaler Inhale 2 puffs twice a day by inhalatio n route for 30 days. 08/02 completed Not Available Not Available Not Available Xarelto 20 mg tablet TAKE 1 TABLET BY MOUTH ONCE DAILY active Not Available Not Available No t Available Anoro Ellipta 62.5 mcg-25 mcg/actuati on powder for inhalation INHALE 1 PUFF BY MOUTH ONCE DAILY active Not Available Not Available No t Available Vitals Date Recorded Body height Body mass index (BMI) Body weight Body temperature Oxygen saturation Oxygen saturation in Arterial blood by Pulse oximetry Heart rate Systolic blood pressure Diastolic blood pressure Provider Name and Address Organization Details Last Updated DateTime 8 157.48 cm 17 kg/m2 99428.3 7 g 97.8 [degF] 97 % 97 % 66 /min 150 mm[Hg] 78 mm[Hg] Jared Marlow MA [place] - [facility] 8 16:07:01 Date Recorded Body height Body mass index (BMI) Body weight Body temperature Oxygen saturation Oxygen saturation in Arterial blood by Pulse oximetry Heart rate Systolic blood pressure Diastolic blood pressure Provider Name and Address Organization Details Last Updated DateTime 8 157.48 cm 15.4 kg/m2 87577.7 6 g 97.6 [degF] 94 % 94 % 67 /min 120 mm[Hg] 70 mm[Hg] Jared Marlow MA [place] - [facility] 8 16:06:56 Date Recorded Body height Body mass index (BMI) Body weight Body temperature Oxygen saturation Oxygen saturation in Arterial blood by Pulse oximetry Heart rate Systolic blood pressure Diastolic blood pressure Provider Name and Address Organization Details Last Updated DateTime 8 157.48 cm 15.9 kg/m2 85966.5 4 g 97.7 [degF] 96 % 96 % 60 /min 140 mm[Hg] 86 mm[Hg] Beatriz Chase MA [place] - [facility] 8 15:08:24 Date Recorded Body height Body mass index (BMI) Body weight Body temperature Oxygen saturation Oxygen saturation in Arterial blood by Pulse oximetry Heart rate Systolic blood pressure Diastolic blood pressure Provider Name and Address Organization Details Last Updated DateTime 9 157.48 cm 16 kg/m2 10443.9 7 g 97.9 [degF] 95 % 95 % 74 /min 124 mm[Hg] 60 mm[Hg] Jared Marlow MA [place] - [facility] 9 16:51:57 Date Recorded Body height Body mass index (BMI) Body weight Body temperature Systolic blood pressure Diastolic blood pressure Provider Name and Address Organization Details Last Updated DateTime 9 157.48 cm 16 kg/m2 27728.9 7 g 98 [degF] 138 mm[Hg] 82 mm[Hg] Jared Marlow MA [place] - [facility] 9 15:09:54 Social History Question Answer Notes LastModified by Organizat ion Details LastModified Time Tobacco Smoking Status Current Every Day Smoker Not Available [facility] 07/07/2020 03:39:30 What Was The Date Of Your Most Recent Tobacco Screening? 07/30/2018 [id number] Information not available 07/07/2020 Sex: Unknown Functional Status None recorded. Mental Status None recorded. Family History Relationship Description Onset Age of this Age Resolved Age Notes LastModified by Organization Details LastModified Time Unspecified Relation Hypertensive disorder cspiller Not available 2013 12:39:22 Unspecified Relation Myocardial infarction cspiller Not available 07/22 12:39:22 Father Osteoporosis cspiller Not avail able 07/22/2014 12:39:22 Medical History Condition Response Other Y High Blood Pressure Y Kidney or Bladder Problems Y High Cholesterol Y Gynecological HistoryNo gynecological history recorded. Obstetrics History GPAL:G 0 P 0 0 0 0 Immunizations Vaccine Type Date Status Note Provider Nam e and Address Organization Details Recorded Time COVID-19, mRNA, LNP-S, PF, 100 mcg/0.5mL dose or 50 mcg/0.25mL dose 1 completed Not Available [facility] 02/15/2023 10:05:57 Influenza, split virus, trivalent, preservative 4 completed Not Available [facility] 09/21/2019 02:32:02 Influenza, split virus, quadrivalent, preservative 4 completed Not Available [facility] 02/15/2023 10:05:57 pneumococcal polysaccharide PPV23 8 completed Not Available [facility] 09/21/2019 02:51:02 Influenza, split virus, quadrivalent, preservative 9 completed Not Available [facility] 09/21/2019 02:38:46 Influenza, split virus, quadrivalent, preservative 5 completed Not Available [facility] 09/21/2019 02:50:31 Past Encounters Encounter ID Performer Location Encounter Start Date Encounter Closed Date Diagnosis/Indication Diagnosis SNOMED-CT Code Diagnosis ICD10 Code Diagnosis Note [id number] Jay Charles Tam (Adult Med) [address] [place] [address] [id number] 07/22/2014 11:24:02 07/22/2014 17:05:48 Chronic obstructive pulmonary disease 75266798 Essential hypertension 21073916 Degenerati ve joint disease of hand 80163988 [id number] MD Yonatan Lloyd (Adult Med) [address] [place] [address] [id number] 03/25/2015 12:30:35 03/25/2015 13:34:17 Essential hypertension 16138225 Chronic ob structive pulmonary disease 31509734 Degenerati ve joint disease of hand 40072490 Acute bronchitis 26493305 [id number] Aure Chi Tam (Adult Med) [address] [place] [address] [id number] 07/27/2015 15:00:18 07/27/2015 15:52:50 Degenerative joint disease of hand 66938920 M19.049 Essential hypertension 71706284 I10 Postmenopausal state 764 21802 Z78.0 Lump on finger 367011993 R22.31 Hyperlipidemia 60108467 E78.5 Acute bronchitis 7022077 2 J20.9 Administra tion of influenza vaccine 68356638 Z23 [id number] MD Yonatan Lloyd (Adult Med) [address] [place] [address] [id number] 0 01/25/2016 15:00:11 01/25/2016 16:45:14 Essential hypertension 49044601 I10 Hyperlipidemia 91855014 E78.5 Postmenopausal state 764 35244 Z78.0 Degenerati ve joint disease of hand 20011082 M19.049 Chronic ob structive pulmonary disease 62714092 J44.9 Osteoporosis 89014539 M8 1.0 Screening mammography 24 312605 Z12.31 [id number] Silverio Gutierrez MD [facility] (Adult Med) [address] [place] [address] [id number] 0 07/18/2016 15:01:06 07/18/2016 15:45:09 Acute bronchitis 05051341 J20.9 Chronic ob structive pulmonary disease 07691255 J44.9 Essential hypertension 57674778 I10 Osteoporosis 49143672 M8 1.0 Tobacco de pendence syndrome 06565998 F17.290 Degenerati ve joint disease of hand 13237784 M19.049 Hyperlipidemia 56755670 E78.5 [id number] Silverio Gutierrez MD [facility] (Adult Med) [address] [place] [address] [id number] 0 08/02/2016 14:47:35 08/02/2016 18:31:06 Chronic obstructive pulmonary disease 22461039 J44.9 Senile osteopenia 609282 06 M85.80 [id number] Silverio Gutierrez MD [facility] (Adult Med) [address] [place] [address] [id number] 0 02/02/2017 15:30:36 02/02/2017 16:47:32 Chronic obstructive pulmonary disease 55737589 J44.9 Degenerati ve joint disease of hand 16663180 M19.049 Exercise, vitamin D, sun exposure. She is reluctant to take calcium in light of previous kidney stones. Hyperlipidemia 70589021 E78.5 Low saturated fat diet. Essential hypertension 20035034 I10 Low salt diet. Osteopenia 090335665 M85 .80 Regular exercise. Tobacco de pendence syndrome 45445071 F17.290 Multiple n odules of lung 572990070 R91.8 calcified cavity, right lung, stable, on LDCA scan screening, needs 3 months F/U. Screening for malignant neoplasm of colon 774683237 Z12.11 Patient declines. Screening for malignant neoplasm of cervix 451565197 Z12.4 Patient declines. Screening mammography 24 208233 Z12.31 Patient declines. [id number] Silverio Gutierrez MD [facility] (Adult Med) [address] [place] [address] [id number] 09/29/2017 15:34:29 09/29/2017 16:55:16 Paroxysmal atrial fibrillation 235715173 I48.0 Chronic ob structive pulmonary disease 92201057 J44.9 Unexplaine d weight loss 569751126 R63.4 [id number] MD Yonatan Lloyd (Adult Med) [address] [place] [address] [id number] 01/24/2018 15:46:03 01/24/2018 16:36:18 Chronic obstructive pulmonary disease 26784653 J44.9 Paroxysmal atrial fibrillation 987087879 I48.0 Under the care of her cardiologi st. [id number] MD Yonatan Lloyd (Adult Med) [address] [place] [address] [id number] 07/30/2018 14:57:28 07/30/2018 16:07:09 Chronic obstructive pulmonary disease 46995846 J44.9 Essential hypertension 01961990 I10 Low salt diet. On 25 mg losartan. Administra tion of pneumococcal vaccine 40183953 Z23 Dyslipidemia 107489179 E 78.5 Low saturated fat diet. Change in skin lesion 39 3545425 L98.9 On the right arm, growing. [id number] Silverio Gutierrez MD [facility] (Adult Med) [address] [place] [address] [id number] 0 01/18/2019 16:35:41 01/21/2019 09:26:37 Chronic obstructive pulmonary disease 25715011 J44.9 Dyslipidemia 848518807 E 78.5 Low saturated fat diet. Reviewed the report of her CMP, lipid, well controlled . Fatigue - symptom 548891 000 R53.83 Osteoarthritis 495284004 M19.90 Wanting referral of arthritis. [id number] [facility] [address] [place] [address] [id number] 0 07/29/2019 14:39:05 07/30/2019 11:06:01 Chronic obstructive pulmonary disease 59258673 J44.9 Hard to walk in the cold winter time. She is short of wind. Rheumatoid arthritis 698 22428 M06.9 Under the care of rheumatolo gist. Will be on prednisolo ne, and methotrexa te. Administra tion of influenza vaccine 29290336 Z23 She tolerated shot well. Dyslipidemia 234416867 E 78.5 Low saturated fat diet. Reviewed the report of her CMP, lipid, well controlled . Essential hypertension 46297912 I10 Low salt diet. On 25 mg losartan. Under the care of her cardiologi st. Health Concerns Section Related Observation LastModified by Organization Detai ls LastModified Time None Recorded Concern Status LastModified by Organization Details LastModified Time None Recorded Advance Directives Directive None Recorded Payers Encounter Date Sequence Insurance Name Policy Number Policy Rodríguez Covered Member ID Rodríguez Member ID Guarantor Name 09/29/2017 1 [place] Sofi Zeng [id number] Sofi Zeng 09/29/2017 2 [place]IC[place] REPLACEMENT PRIMARY) Sofi Zeng [id number] Sofi Zeng 01/24/2018 1 [place] Sofi Zeng [id number] Sofi Zeng 01/24/2018 2 [place]ACEMENT [place]) Sofi Zeng [id number] Sofi Zeng 07/30/2018 1 [place] Sofi Zeng [id number] Sofi Azucena 07/30/2018 2 [place]PLACEMENT [place]IMARY) Sofi Zeng [id number] Sofi Zeng 01/18/2019 1 [place] Sofi Zeng [id number] Sofi Zeng 01/18/2019 2 [place] REPLACEMENT PRIMARY) Sofi Zeng [id number] Sofi Zeng 07/29/2019 1 [place] Sofi Zeng [id number] Sofi Azucena 07/29/2019 2 [place] REPLACEMENT [place]IMARY) Sofi Zeng [id number] Sofi Zeng Notes Date Note Type Note Provider Name and Address Organization Details Recorded Time 09/29/2017 text/html Recent atrial fibrillation , under the care of her library sales consultant, on blood thinner, ex-smoker. allergic to penicillins. Lung granular spot on the LDCT, she is aware of it. On inhalers ventolin. Silverio Gutierrez MD Attn: Accounting,[address] [facility], [place], [address], [place] [facility] 09/29/2017 16:51:19 01/24/2018 text/html F/U for her COPD , refills of her inhalers, also she will see her library sales consultant in the near future, allergic to penicillins. Silverio Gutierrez MD Attn: Accounting[address] [facility], [place], [address], [place] [facility] 01/24/2018 16:29:15 07/30/2018 text/html Had flu shot thi s year, saw her lung specialist regularly, wants pneumonia vaccine, not sick today, allergic to penicillins. Will have LDCT for lung mass screening. Silverio Gutierrez MD Attn: Accounting[address] [place], [address], [facility] - [facility] 07/30/2018 15:51:17 01/18/2019 text/html Reviewed the blo od tests., allergic to penicillins. right arm benign lesion removed . Fatigue syndrome. used to see a certified scrum master , was on diclofenac cream for arthritis, osteo . Silverio Gutierrez MD Attn: Accounting[address] [place], [address], [place] [facility] 01/18/2019 17:10:07 07/29/2019 text/html Check up, annual flu shot,and medications refills. Allergic to penicillins. handicapped parking card. Silverio Gutierrez MD Attn: Accounting[address] [place], [address], [place] [facility] 07/29/2019 15:33:38 OBGyn Episode No OBEpisode recorded.
--- OUTSIDE RECORDS SUMMARY | 2024-10-12 16:54 | XMS_ITS | Patient Health Summary ---
Author Organization [facility] Address [address] [place] [address] Care Team Providers Care Handtools Repairer Name Role Phone Silverio Gutierrez MD Primary Care Provider [phone] Moni Quintanilla APRN-PLYCOR OPERATOR Unavailable U navailable Note from [facility][note 3],non-owned Affiliates and Associated Physician Practices is amultiple site organization consisting of ambulatory clinics and hospital sitesin [place], [place], [place]. This disclosure is being madepursuant to the Care Everywhere program and may not contain all information available regarding this patient. Last updated 18.[facility] Allergies * Codeine(Itching) * Doxycycline(Nausea and/or Vomiting) * Penicillins(Urticaria) -Medium Criticality,Inactive Medications * Be aware that medications may not be up to date on this document. Alwaysverify current medications with the patient. * umeclidinium-vilanterol (ANORO ELLIPTA) 62.5-25 MCG/INH inhaler Inhale 1 puff by mouth once daily * albuterol HFA (VENTOLIN HFA) 108 (90 Base) MCG/ACT inhaler Inhale 1 puff by mouth every 6 hours as needed * rivaroxaban (XARELTO) 20 MG tablet Take 1 tablet by mouth once daily * pravastatin (PRAVACHOL) 20 MG tablet Take 20 mg by mouth once daily * losartan (COZAAR) 25 MG tablet Take 25 mg by mouth once daily * sotalol, AF, 80 MG tablet(Started 2019) Take 40 mg by mouth 2 times daily Takes 40 mg in am and 80 mg at HS 2 refills left * Cholecalciferol (CVS VIT D 5000 HIGH-POTENCY PO) Take 1 tablet by mouth every 7 days * methotrexate (RHEUMATREX) 2.5 MG tablet(Started 06/14/2021) Take 3 (three) tablets by mouth every 7 days * folic acid (FOLVITE) 1 MG tablet(Started 06/14/2021) Take 1 (one) tablet by mouth once daily Social History Tobacco Use Types Packs/Day Years Used Date Smoking Tobacco: Former Cigarettes Q uit: 01/06/2020 Smokeless Tobacco: Never Tobacco Cessation:Ready to Q uit: Yes Alcohol Use Standard Drinks/Week Comments Not Currently 0 (1 standard drink = 0.6 oz pur e alcohol) Sex and Gender Information Value Date Recorded Sex Assigned at Not on file Gender Identity Not on file Sexual Orientation Not on file Last Filed Vital Signs Vital Sign Reading Time Taken Comments Blood Pressure 150/98 06/14/2021 1:26 PM CDT Pulse 68 06/14/2021 1:26 PM CDT Temperature 36.1 C (97 F) 06/14/2021 1:26 PM CDT Respiratory Rate 16 06/14/2021 1:26 PM CDT Oxygen Saturation 96% 06/14/2021 1:26 PM CDT Inhaled Oxygen Concentration - - Weight 36.3 kg (80 lb) 06/14/2021 1:26 PM CDT Height 154.9 cm (5' 1 ) 06/14/2021 1:26 PM CDT Body Mass Index 15.12 06/14/2021 1:26 PM CDT Procedures * COMPREHENSIVE METABOLIC PANEL(Performed 04/13/2021) Performed for Rheumatoid arthritis, seropositive, multiple sites (HCC), High risk medications (not anticoagulants) long-term use * CBC W AUTO DIFFERENTIAL(Performed 04/13/2021) Performed for Rheumatoid arthritis, seropositive, multiple sites (HCC), High risk medications (not anticoagulants) long-term use * COMPREHENSIVE METABOLIC PANEL(Performed 12/28/2020) Performed for Rheumatoid arthritis, seropositive, multiple sites (HCC), High risk medications (not anticoagulants) long-term use * CBC W AUTO DIFFERENTIAL(Performed 12/28/2020) Performed for Rheumatoid arthritis, seropositive, multiple sites (HCC), High risk medications (not anticoagulants) long-term use * LAB(Performed 10/02/2020) * COMPREHENSIVE METABOLIC PANEL(Performed 06/22/2020) Performed for Rheumatoid arthritis, seropositive, multiple sites (HCC), High risk medications (not anticoagulants) long-term use * CBC W AUTO DIFFERENTIAL(Performed 06/22/2020) Performed for Rheumatoid arthritis, seropositive, multiple sites (HCC), High risk medications (not anticoagulants) long-term use * CT CHEST WO CONTRAST(Performed 02/17/2020) * COMPREHENSIVE METABOLIC PANEL(Performed 02/12/2020) Performed for High risk medications (not anticoagulants) long-term use, Rheumatoid arthritis, seropositive, multiple sites (HCC) * CBC W AUTO DIFFERENTIAL(Performed 02/12/2020) Performed for High risk medications (not anticoagulants) long-term use, Rheumatoid arthritis, seropositive, multiple sites (HCC) * CBC W AUTO DIFFERENTIAL(Performed 09/24/2019) Performed for High risk medications (not anticoagulants) long-term use * COMPREHENSIVE METABOLIC PANEL(Performed 09/24/2019) Performed for High risk medications (not anticoagulants) long-term use * XR WRIST RIGHT 3VW OR MORE(Performed 06/24/2019) Performed for Chronic inflammatory arthritis * XR HAND RIGHT 3VW OR MORE(Performed 06/24/2019) Performed for Chronic inflammatory arthritis * VITAMIN D 1,25 DIHYDROXY(Performed 06/24/2019) Performed for Osteopetrosis , Chronic inflammatory arthritis, History of granulomatous disease, Renal stones * CYCLIC CITRUL PEPTIDE ANTIBODY IGG/IGA (CCP)(Performed 06/24/2019) Performed for Chronic inflammatory arthritis * ANGIOTENSIN CONVERTING ENZYME BLOOD(Performed 06/24/2019) Performed for Chronic inflammatory arthritis, History of granulomatous disease * VITAMIN D 25-HYDROXY(Performed 06/24/2019) Performed for Disorder of cartilage, unspecified , Chronic inflammatory arthritis, History of granulomatous disease, Renal stones * PTH INTACT(Performed 06/24/2019) Performed for Chronic inflammatory arthritis, History of granulomatous disease, Renal stones * FERRITIN(Performed 06/24/2019) Performed for Pain in right wrist , Chronic inflammatory arthritis, History of granulomatous disease, Renal stones * C-REACTIVE PROTEIN(Performed 06/24/2019) Performed for Chronic inflammatory arthritis * ERYTHROCYTE SEDIMENTATION RATE(Performed 06/24/2019) Performed for Chronic inflammatory arthritis * RHEUMATOID FACTOR BLOOD QUANTITATIVE(Performed 06/24/2019) Performed for Chronic inflammatory arthritis Results * (ABNORMAL) CBC WITH DIFFERENTIAL (04/13/2021 3:16 PM CDT) Only the most recent of5 resultswithin the time period is included. WBC 7.5 3.4 - 10.8 x10E3/uL [facility] INSURANCE BILL RBC 4.34 3.77 - 5.28 x10E6/uL [facility] INSURANCE BILL Hemoglobin 14.2 11.1 - 15.9 g/dL [facility] INSURANCE BILL Hematocrit 43.5 34.0 - 46.6 % [facility] INSURANCE BILL MCV 100(H) 79 - 97 fL [facility] INSURANCE BILL MCH 32.7 26.6 - 33.0 pg [facility] INSURANCE BILL MCHC 32.6 31.5 - 35.7 g/dL [facility] INSURANCE BILL RDW 12.0 11.7 - 15.4 % [facility] INSURANCE BILL Platelet Count 222 150 - 450 x10E3/uL [facility] INSURANCE BILL Granulocytes % 59 Not Estab. % [facility] INSURANCE BILL Lymphocytes % 33 Not Estab. % [facility] INSURANCE BILL Monocytes % 5 Not Estab. % [facility] INSURANCE BILL Eosinophils % 2 Not Estab. % [facility] INSURANCE BILL Basophils % 1 Not Estab. % [facility] INSURANCE BILL Immature Cells NOT NEEDED [facility] INSURANCE BILL Comment:Ancillary determined the test is not needed. Granulocytes Absolute 4.5 1.4 - 7.0 x10E3/uL [facility] INSURANCE BILL Lymphocytes Absolute 2.5 0.7 - 3.1 x10E3/uL [facility] INSURANCE BILL Monocytes Absolute 0.4 0.1 - 0.9 x10E3/uL [facility] INSURANCE BILL Eosinophils Absolute 0.1 0.0 - 0.4 x10E3/uL [facility] INSURANCE BILL Basophils Absolute 0.0 0.0 - 0.2 x10E3/uL [facility] INSURANCE BILL Immature Granulocytes 0 Not Estab. % [facility] INSURANCE BILL Immature Granulocytes Absolute 0.0 0.0 - 0.1 x10E3/uL [facility] INSURANCE BILL nRBC NOT NEEDED [facility] INSURANCE BILL Comment:Ancillary determined the test is not needed. Comment Hematology NOT NEEDED [facility] INSURANCE BILL Comment: FASTING Ancillary determined the test is not needed. Blood BLOOD SPECIMEN / Unknown 04/13/2021 3:16 PM CDT 04/13/2021 Narrative Resulting Agency Comment Lab Testing performed at: [facility] [address] [id number] Tylor Thekkemuriyil MD LAB - HEMATOLOGY O RDERABLES [facility] INSURANCE BILL [address] [place] [address] * (ABNORMAL) COMPREHENSIVE METABOLIC PANEL (04/13/2021 3:16 PM CDT) Only the most recent of5 resultswithin the time period is included. Glucose 162(H) 65 - 99 mg/dL [facility] INSURANCE BILL BUN 10 8 - 27 mg/dL [facility] INSURANCE BILL Creatinine 0.93 0.57 - 1.00 mg/dL [facility] INSURANCE BILL eGFR by MDRD 62 >59 mL/min/1.7 3 [facility] INSURANCE BILL eGFR by MDRD 71 >59 mL/min/1.7 3 [facility] INSURANCE BILL Comment: [facility] currently reports eGFR in compliance with the current recommendations of the National Kidney Foundation. [facility] will update reporting as new guidelines are published from the NKF-ASN Task force. BUN/Creatinine Ratio 11(L) 12 - 28 [facility] INSURANCE BILL Sodium 142 134 - 144 mmol/L [facility] INSURANCE BILL Potassium 4.2 3.5 - 5.2 mmol/L [facility] INSURANCE BILL Chloride 102 96 - 106 mmol/L [facility] INSURANCE BILL CO2 29 20 - 29 mmol/L [facility] INSURANCE BILL Calcium 9.5 8.7 - 10.3 mg/dL [facility] INSURANCE BILL Protein Total 6.8 6.0 - 8.5 g/dL [facility] INSURANCE BILL Albumin 4.4 3.7 - 4.7 g/dL [facility] INSURANCE BILL Globulin Total 2.4 1.5 - 4.5 g/dL [facility] INSURANCE BILL Albumin/Globulin Ratio 1.8 1.2 - 2.2 [facility] INSURANCE BILL Bilirubin Total 0.7 0.0 - 1.2 mg/dL [facility] INSURANCE BILL Alkaline Phosphatase 74 48 - 121 IU/L [facility] INSURANCE BILL AST 21 0 - 40 IU/L [facility] INSURANCE BILL ALT 9 0 - 32 IU/L [facility] INSURANCE BILL Comment:FASTING Blood BLOOD SPECIMEN / Unknown 04/13/2021 3:16 PM CDT 04/13/2021 Narrative Resulting Agency Comment Lab Testing performed at: [facility] [address] [id number] Tylor Duval MD LAB - CHEMISTRY OR DERABLES [facility] INSURANCE BILL [address] [place] [address] * LAB (10/02/2020) Tylor Duval MD SCANNING ONLY * CT CHEST WO CONTRAST (02/17/2020) Anatomical Region Laterality Modality Chest Other Scanned Document CT ORDERABLES * XR HAND RIGHT 3VW OR MORE (06/24/2019 1:55 PM CDT) Anatomical Region Laterality Modality Wrist / Hand Radiographic Beti ging 06/24/2019 3:48 PM CDT Narrative 06/24/2019 4:07 PM CDT Right hand, 3 views. HISTORY: Hand pain. Findings/impression: There may have been prior surgical fusion of the second MCP. No acute fracture or dislocation is seen. There is suggestion of an erosion in the scaphoid which is partially imaged. Degenerative changes are seen in the DIP and PIP joints as well as the basal thumb joint. The bones are severely osteopenic. Reading Radiologist: Colten Gore MD on 06/24/2019 at 4:07 PM Procedure Note Colten Gore MD - 06/24/2019 Right hand, 3 views. HISTORY: Hand pain. Findings/impression: There may have been prior surgical fusion of the second MCP. No acute fracture or dislocation is seen. There is suggestion of an erosion in the scaphoid which is partially imaged. Degenerative changes are seen in the DIP and PIP joints as well as the basal thumb joint. The bones are severely osteopenic. Reading Radiologist: Colten Gore MD on 06/24/2019 at 4:07 PM Tylor Duval MD DIAGNOSTIC IMAGING ORDERABLES * XR WRIST RIGHT 3VW OR MORE (06/24/2019 1:55 PM CDT) Anatomical Region Laterality Modality Wrist / Hand Radiographic Beti ging 06/24/2019 1:56 PM CDT Narrative 06/24/2019 2:27 PM CDT RIGHT WRIST, THREE VIEWS HISTORY: Wrist pain. FINDINGS/IMPRESSION: There is a chronic appearing deformity seen at the head of the second metacarpal which is better seen on the dedicated hand radiographs. This could be related to prior fracture or surgery. No definite acute fracture is seen on the current study. The scaphoid is not well evaluated on this study and dedicated scaphoid views could be obtained. Significant soft tissue swelling is seen around the wrist. No definite chondrocalcinosis is seen in the wrist which could be seen in the setting of pseudogout. No definite focal erosions are identified. Edited by Solange Collins on 06/24/2019 2:21 PM Reading Radiologist: Colten Gore MD on 06/24/2019 at 2:27 PM Procedure Note Colten Gore MD - 06/24/2019 RIGHT WRIST, THREE VIEWS HISTORY: Wrist pain. FINDINGS/IMPRESSION: There is a chronic appearing deformity seen at the head of the second metacarpal which is better seen on the dedicated hand radiographs. This could be related to prior fracture or surgery. No definite acute fracture is seen on the current study. The scaphoid is not well evaluated on this study and dedicated scaphoid views could be obtained. Significant soft tissue swelling is seen around the wrist. No definite chondrocalcinosis is seen in the wrist which could be seen in the setting of pseudogout. No definite focal erosions are identified. Edited by Solange Collins on 06/24/2019 2:21 PM Reading Radiologist: Colten Gore MD on 06/24/2019 at 2:27 PM Tylor Duval MD DIAGNOSTIC IMAGING ORDERABLES * VITAMIN D 1,25 DIHYDROXY (06/24/2019 12:12 PM CDT) Calcitriol (1,25 di-OH Vit D) 54.4 19.9 - 79.3 pg/mL [facility] INSURANCE BILL Blood BLOOD SPECIMEN / Unknown 06/24/2019 12:12 PM CDT 06/24/2019 Narrative Resulting Agency Comment Lab Testing performed at: [facility] [id number] Tylor Duval MD LAB - CHEMISTRY OR DERABLES Performing Organization Address [facility] Co de Phone Number [facility] INSURANCE BILL [address] [place] [address] * (ABNORMAL) CYCLIC CITRUL PEPTIDE ANTIBODY IGG/IGA (CCP) (06/24/2019 12:11 PM CDT) CCP Antibodies IgG/IgA >250(H) 0 - 19 units [facility] INSURANCE BILL Comment: Negative <20 Weak positive 20 - 39 Moderate positive 40 - 59 Strong positive >59 FASTING Blood BLOOD SPECIMEN / Unknown 06/24/2019 12:11 PM CDT 06/24/2019 Narrative Resulting Agency Comment Lab Testing performed at: [facility] [id number] Tylor Duval MD LAB - SEROLOGY ORD ERABLES Performing Organization Address [facility] de Phone Number [facility] INSURANCE BILL [address] [place] [address] * (ABNORMAL) RHEUMATOID FACTOR BLOOD QUANTITATIVE (06/24/2019 12:11 PM CDT) Pathologist [facility] Rheumatoid Factor 149(H) <30 IU/mL [facility] INSURANCE BILL Comment:FASTING Blood BLOOD SPECIMEN / Unknown 06/24/2019 12:11 PM CDT 06/24/2019 Narrative Resulting Agency Comment Lab Testing performed at: [facility] [address] [id number] Tylor Duval MD LAB - CHEMISTRY OR DERABLES Performing Organization Address City/[facility]/ZIP Co de Phone Number [facility] INSURANCE BILL [address] [place] [address] * (ABNORMAL) C-REACTIVE PROTEIN (06/24/2019 12:11 PM CDT) C-Reactive Protein 0.80(H) <=0.50 mg/dL [facility] INSURANCE BILL Comment:FASTING Blood BLOOD SPECIMEN / Unknown 06/24/2019 12:11 PM CDT 06/24/2019 Narrative Resulting Agency Comment Lab Testing performed at: [facility] [address] [place] [id number] Tylor Duval MD LAB - CHEMISTRY OR DERABLES Performing Organization Address [facility] Co de Phone Number [facility] INSURANCE BILL [address] [place] [address] * PTH INTACT (06/24/2019 12:11 PM CDT) PTH Intact 32 15 - 65 pg/mL [facility] INSURANCE BILL Comment:FASTING Blood BLOOD SPECIMEN / Unknown 06/24/2019 12:11 PM CDT 06/24/2019 Narrative Resulting Agency Comment [facility] [address] [id number] Tylor Duval MD LAB - CHEMISTRY OR DERABLES Performing Organization Address [facility] de Phone Number [facility] INSURANCE BILL [address] [place] [address] * (ABNORMAL) VITAMIN D 25-HYDROXY (06/24/2019 12:11 PM CDT) Vitamin D, 25 Hydroxy 12.1(L) 30 - 100 ng/mL [facility] INSURANCE BILL Comment: Vitamin D Status: Deficiency <20 ng/mL Insufficiency 20-30 ng/mL Sufficiency 30-100 ng/mL Toxicity >100 ng/mL FASTING Blood BLOOD SPECIMEN / Unknown 06/24/2019 12:11 PM CDT 06/24/2019 Narrative Resulting Agency Comment Lab Testing performed at: [facility] [address] [id number] Tylor Duval MD LAB - CHEMISTRY OR DERABLES Performing Organization Address [facility] Co de Phone Number [facility] INSURANCE BILL [address] [place] [address] * ANGIOTENSIN CONVERTING ENZYME BLOOD (06/24/2019 12:11 PM CDT) Angiotensin-Con verting Enzyme 28 14 - 82 U/L [facility] INSURANCE BILL Comment:FASTING Blood BLOOD SPECIMEN / Unknown 06/24/2019 12:11 PM CDT 06/24/2019 Narrative Resulting Agency Comment [facility] [address] [id number] Tylor Duval MD LAB - CHEMISTRY OR DERABLES Performing Organization Address [facility] Co de Phone Number [facility] INSURANCE BILL [address] [place] [address] * ERYTHROCYTE SEDIMENTATION RATE (06/24/2019 12:11 PM CDT) Erythrocyte Sedimentation Rate Westergren 16 0 - 30 MM/HR [facility] INSURANCE BILL Comment:FASTING Blood BLOOD SPECIMEN / Unknown 06/24/2019 12:11 PM CDT 06/24/2019 Narrative Resulting Agency Comment Lab Testing performed at: [address] [id number] Tylor Duval MD LAB - HEMATOLOGY O RDERABLES Performing Organization Address [facility] de Phone Number [facility] INSURANCE BILL [address] [place] [address] * FERRITIN (06/24/2019 12:11 PM CDT) Ferritin 199 5 - 204 ng/mL [facility] INSURANCE BILL Comment:FASTING Blood BLOOD SPECIMEN / Unknown 06/24/2019 12:11 PM CDT 06/24/2019 Narrative Resulting Agency Comment Lab Testing performed at: [facility] [address] [place] [id number] Tylor Duval MD LAB - CHEMISTRY OR DERABLES Performing Organization Address City/[facility]/ZIP Co de Phone Number [facility] INSURANCE BILL [address] [place] [address] Care Teams Handtools Repairer Relationship Specialty Start Date End Date Silverio Gutierrez MD [facility] [place], [place] [phone] PCP - General Internal Medicine 06/24/19 Moni Quintanilla, OLIVERIO-PLYCOR OPERATOR Update Information Sales Project Manager Nurse Practitioner 02/26/20
--- OUTSIDE RECORDS SUMMARY | 2024-10-12 16:54 | XMS_ITS | Referral Summary ---
Author Organization [facility] Address [address] [place] [address] Care Team Providers Care Handicapped Teacher Name Role Phone Silverio Gutierrez MD Primary Care Provider [phone] Moni Quintanilla APRN-HEAT TREAT OPERATOR Unavailable U navailable Source Comments [facility],non-owned Affiliates and Associated Physician Practices is amultiple site organization consisting of ambulatory clinics and hospital sitesin [place], [place]. This disclosure is being madepursuant to the Care Everywhere program and may not contain all information available regarding this patient. Last updated 18.[facility] Allergies Active Allergy Reactions Criticality Noted Date Comments Codeine Itching 08/03/2017 Doxycycline Nausea and/or Vomiting 06/24/2019 Medications * Be aware that medications may not be up to date on this document. Alwaysverify current medications with the patient. Medication Sig Dispensed Refills Start Date End Date Status umeclidinium-vilanter ol (ANORO ELLIPTA) 62.5-25 MCG/INH inhaler Inhale 1 puff by mouth once daily Active albuterol HFA (VENTOLIN HFA) 108 (90 Base) MCG/ACT inhaler Inhale 1 puff by mouth every 6 hours as needed Active rivaroxaban (XARELTO) 20 MG tablet Take 1 tablet by mouth once daily Active pravastatin (PRAVACHOL) 20 MG tablet Take 20 mg by mouth once daily Active losartan (COZAAR) 25 MG tablet Take 25 mg by mouth once daily Active sotalol, AF, 80 MG tablet Take 40 mg by mouth 2 times daily Takes 40 mg in am and 80 mg at HS 2 2019 Active Cholecalciferol ([facility]S VIT D 5000 HIGH-POTENCY PO) Take 1 tablet by mouth every 7 days Active methotrexate (RHEUMATREX) 2.5 MG tablet Take 3 (three) tablets by mouth every 7 days 36 tablet 06/14/2021 Active folic acid (FOLVITE) 1 MG tablet Take 1 (one) tablet by mouth once daily 90 tablet 06/14/2021 Active Social History Tobacco Use Types Packs/Day [...] Mass Index 15.12 06/14/2021 1:26 PM CDT Plan of Treatment Not on file Care Teams Handicapped Teacher Relationship Specialty Start Date End Date Silverio Gutierrez MD [address] [place], [place] [phone] PCP - General Internal Medicine 06/24/19 Moni Quintanilla, BEAUTY SCHOOL INSTRUCTOR-HEAT TREAT OPERATOR Update Information Esthetician Nurse Practitioner 02/26/20
--- OUTSIDE RECORDS SUMMARY | 2024-10-12 16:54 | XMS_ITS | Clinical Summary ---
Author Organization [facility] Address [address] [place] [address] Care Team Providers Care Waste Picker Name Role Phone Silverio Gutierrez MD Primary Care Provider [phone] Moni Quintanilal APRN-ENGINEER SYSTEMS Unavailable U navailable Source Comments [facility],non-owned Affiliates and Associated Physician Practices is amultiple site organization consisting of ambulatory clinics and hospital sitesin [place], [place], [place] and [place]. This disclosure is being madepursuant to the Care Everywhere program and may not contain all information available regarding this patient. Last updated 18.[facility] Allergies Active Allergy Reactions Criticality Noted Date [...] 06/14/2021 1:26 PM CDT Plan of Treatment Health Maintenance Due Date Last Done Comments BONE DENSITY TESTING 1950 MEDICARE AWV 12 MONTHS 1950 HEPATITIS C SCREENING 04/15/1966 DTAP/TDAP/TD VACCINES (1 - Tdap) 1967 PNEUMOCOCCAL VACCINE 50+ (1 of 1 - PCV) 1998 ZOSTER VACCINE (1 of 2) 1998 Respiratory Syncytial Virus (RSV) Vaccine Pt: or over 60 yrs (1 - 1-dose 75+ series) 2023 COVID-19 VACCINE (3 - season) 2024 12/29/2020, 12/01/2020 INFLUENZA VACCINE (#1) 2024 , 06/20/2018, 07/27/2015, Additional history exists DEPRESSION SCREENING 09/04/2024 HEPATITIS B VACCINE Aged Out No longe r eligible based on patient's age to complete this topic HIB VACCINE Aged Out No longer eligi ble based on patient's age to complete this topic HPV VACCINE Aged Out No longer eligi ble based on patient's age to complete this topic MENINGOCOCCAL (Group B) VACCINE Aged Out No longer eligible based on patient's age to complete this topic MENINGOCOCCAL VACCINE Aged Out No christopher gilma eligible based on patient's age to complete this topic Care Teams Waste Picker Relationship Specialty Start Date End Date Silverio Gutierrez MD [address] [place] [phone] PCP - General Internal Medicine 06/24/19 Moni Quintanilla APRN-JHON Update Information Deburring Technician Nurse Practitioner 02/26/20
--- OUTSIDE RECORDS SUMMARY | 2024-10-12 16:54 | XMS_ITS ---
Author Organization [facility] Address [address] [place] [address] Care Team Providers Care C Developer Name Role Phone Vahe Corey Unavailable [phone] MEDICATIONS Medication SIG (Take, Route, Frequency, Duration) Notes Start Date End Date Status Ergocalciferol 1.25 MG (40835 UT) 1 capsule Orally Once a week for 90 day(s) 01/05/2024 09/30/2024 Active Calcitriol 0.25 MCG 1 capsule Orally Onc e a day for 90 day(s) 01/05/2024 09/30/2024 Active Losartan Potassium 25 MG 1 tablet Orally Once a day for 90 day(s) 01/05/2024 Active Myrbetriq 25 MG 1 tablet Orally Once a day for 90 day(s) 01/05/2024 09/30/2024 Active PROBLEMS Problem Type ICD Code Onset Dates Problem Status W/U Status Risk SNOMED Code Notes Problem Chronic kidney disease, stage 3 unspecified (N18.30) Active confirmed Chronic kidney disease stage 3 (disorder) ([id number]) Encounters Encounter Location Date Provider Diagnosis [facility] [address] [facility] [address] [place] [address] 05/17/2024 Corey Cotter Chronic kidney disea se, stage 3 unspecified N18.30 ; Essential hypertension I10 ; Urinary tract infection, site not specified N39.0 ; Anxiety disorder, unspecified F41.9 ; Chronic fatigue, unspecified R53.82 ; Other proteinuria R80.8 ; Renal osteodystrophy N25.0 and Secondary hyperparathyroidism, not elsewhere classified E21.1 ASSESSMENTS Encounter Date Diagnosis Assessment Notes Treatment Notes Treatment Clinical Notes Section Notes 05/17/2024 Chronic kidney disease, stage 3 unspecified (ICD-10 - N18.30) 05/17/2024 Essential hypertension (ICD-10 - I10) 05/17/2024 Urinary tract infection, site not specified (ICD-10 - N39.0) 05/17/2024 Anxiety disorder, unspecified (ICD-10 - F41.9) 05/17/2024 Chronic fatigue, unspecified (ICD-10 - R53.82) 05/17/2024 Other proteinuria (ICD-10 - R80.8) 05/17/2024 Renal osteodystrophy (ICD-10 - N25.0) 05/17/2024 Secondary hyperparathyroidism , not elsewhere classified (ICD-10 - E21.1) PLAN OF TREATMENT No Information Progress Notes * Makayla YEBOAHaDOB:1950 (74 yo F)Acc No.[id number]:05/17/2024 Progress Notes Patient: Sofi YEBOAH Provider: MD NICK, F.A.C.P, F.A.S.N. :1950 Age:74 Y Sex:Female Date:05/17/2024 Address:[address] [place] [address] Subjective: * Chief Complaints: * * Medical History: * Medications: Taking Myrbetriq 25 MG Tablet Extended Release 24 Hour 1 tablet Orally Once a day , stop date 09/30/2024, Taking Ergocalciferol 1.25 MG (95611 UT) Capsule 1 capsule Orally Once a week , stop date 09/30/2024, Taking Calcitriol 0.25 MCG Capsule 1 capsule Orally Once a day , stop date 09/30/2024, Taking Losartan Potassium 25 MG Tablet 1 tablet Orally Once a day Objective: Assessment: * Assessment: 1. Chronic kidney disease, stage 3 unspecified - N18.30 2. Essential hypertension - I10 3. Urinary tract infection, site not specified - N39.0 4. Anxiety disorder, unspecified - F41.9 5. Chronic fatigue, unspecified - R53.82 6. Other proteinuria - R80.8 7. Renal osteodystrophy - N25.0 8. Secondary hyperparathyroidism, not elsewhere classified - E21.1 Plan: * Treatment: * Billing Information: * Visit Code: 09412 Office Visit, Est Pt., Level 4. * Procedure Codes: * UCT BLENDING SUPERVISOR Sign off status: Pending * Provider: MD NICK, F.A.C.P, F.A.S.N. Date: 05/17/2024
--- OUTSIDE RECORDS SUMMARY | 2024-10-12 16:54 | XMS_ITS | Continuity of Care Document ---
Author Organization [facility] Address [address] [place] [address] Phone Care Team Providers Care Pigment Making Supervisor Name Role Phone Hankins OD, Michael Unavailable Unavailable Procedures Procedure Date Visual Field Examination(s) Office/outpatient Visit, Est Office/outpatient Visit, Est Visual Field Examination(s) BF Plastic Sphcyl [place] To +/-4d .12-2d Frames Deluxe Tax - Medical Eye Exam & Treatment Refraction Office/outpatient Visit, Est Visual Field Examination(s) Advance Directives Directive Yes / No Effective Date File Name No Information Encounters Encounter Description Practice Location Reason(s) For Visit Diagnoses Date Provider Providers Copied on Encounter [facility], [address] [place] [address] [address], [place], [place], [id number], [place] tel:[phone] SEC [facility] No Information 9-201 0 Hankins OD Michael. [facility] [address], [place], [address], [place]. tel:[phone] Referring Provider: [facility] [address], [place], [address]. tel:[phone] Office/outpat ient Visit, Est [facility], [address], [place], [place], [id number], [place] tel:[phone] [facility] No Information Humberto-0 1-201 0 Hankins OD Michael. [address] [place] [address] , [address], [place], [address], [place]. tel:[phone] Office/outpat ient Visit, Est [facility], [address], [place], [place], [id number], [place] tel:[phone] [facility] No Information Oct-2 0-200 9 Hankins OD Michael. [address] [place] [address] , [address], [place], [address], [place]. tel:[phone] [facility], [address], [place], [place], [id number], [place] tel:[phone] [facility] No Information Humberto-0 2-200 9 Hankins OD Michael. [address] [place] [address] , [address], [place], [address], [place]. tel:[phone] Referring Provider: Michael Hankins OD A, [address] [place] [address] [address], [place], [address]. tel:[phone] [facility], [address], [place], [place], [id number], [place] tel:[phone] [facility] No Information Feb-2 4-200 9 [facility] . [address] [facility], [address], [place], [place], [address], [place]. tel:[phone] Referring Provider: Michael Hankins OD A, [address] [place] [address] [address], [place], [address]. tel:[phone] sulting Provider: Low Linn, [address] [place], [place] [address], [place], [address]. tel:[phone] [facility], [address], [place], [place], [address], [place] tel:[phone] [facility] No Information 2 1-200 9 Hankins OD Michael. [address] [place] [address] , [address], [place], [address], [place]. tel:[phone] Office/outpat ient Visit, Est [facility], [address], [place], [place], [id number], tel:[phone] [facility] No Information Sep-0 9-200 8 Hankins OD Michael. [address] [place] [address] , [address], [place], [place], [facility], [place]. tel:[phone] [facility], [address], [place], [place], [id number], [place] tel:[phone] [facility] No Information Humberto-0 7-200 7 Hankins OD Michael. [address] [place] [address] , [address], [place], [place], [facility], [place]. tel:[phone] Referring Provider: Michael Tinoco, [address] [place] [address] [address], [place], [address]. tel:[phone] Family History Family Member Type Diagnosis Age At Onset No Information Payers Payer name Insurance type Covered libertarian ID Authoriza tion(s) No Information Social History Type Description Quantity Date Captured Comments Sex Female Smoking Status No Information Chief Complaint And Reason For Visit No Information Reason For Referral Reason For Referral No Information History Of Present Illness Encounter Date Complaint History Of Prese nt Illness No Information Functional Status Date Functional Assessmen t No Information Instructions Date Instruction Additional Infor mation No Information Assessments Type Assessment Date No Information Patient Care Teams Name Effective Dates (start - stop) Status Members No Information
--- OUTSIDE RECORDS SUMMARY | 2024-10-12 16:54 | XMS_ITS | Clinical Summary ---
Author Organization [facility] Facility Address [address] [address] Care Team Providers Care Disability Program Navigator Name Role Phone Eulalia Julio MD Primary Care Provider [phone] Encounters Date Type Department Care Team Description 10/08/2024 Documentation Only [facility], [address] [address] Provider, MD Enma from Last 3 Months Social History Tobacco Use Types Packs/Day Years Used Date Smoking Tobacco: Never Assessed Comments Unknown Sex and Gender Information Value Date Recorded Sex Assigned at Not on file Legal Sex Female 3:56 PM EST Gender Identity Not on file Sexual Orientation Not on file Plan of Treatment Health Maintenance Due Date Last Done Comments Diabetes: Hemoglobin A1C 10/08/2024 Diabetes: Ophthalmology Exam 10/08/2024 Diabetes: Pedal Pulse Checked 10/08/2024 Diabetes: Sensory Foot Exam 10/08/2024 Diabetes: Visual Foot Exam 10/08/2024 Pneumococcal Vaccine: 65+ Years Completed 09/04/2019, 07/30/2018 Influenza Vaccine Completed 07/30/2024, , 07/27/2020, Additional history exists Hepatitis B Vaccine Aged Out No longe r eligible based on patient's age to complete this topic [place] [address] [place] [address] D[employer] OPTIONS ([id number]) Care Teams Disability Program Navigator Relationship Specialty Start Date End Date Eulalia Julio MD [address] [facility], [address] [place] [address] PCP - General Internal Medicine 10/08/24
--- NOTE | 2024-10-12 16:56 | ECG_ITS ---
Test Date: 2024-10-12 17:44:27 Measurements Intervals Dexter Rate: 98 P: 0 SD: 0 QRS: 267 QRSD: 168 T: 73 QT: 387 QTc: 495 Interpretive Statements ATRIAL FLUTTER/TACHYCARDIA LEFT BUNDLE BRANCH BLOCK BASELINE ARTIFACT- I, II, III, AVR, AVL, AVF, V1-V2 ABNORMAL ECG No previous ECG available for comparison Electronically Signed On 10-12-2024 19:25:34 PRINTING PLATE MAKER by Robby Mcgee D.O.
--- NOTE | 2024-10-12 16:56 | ED.SOB ---
HPI - SOB/Dyspnea General Chief Complaint: Shortness of Breath/Dyspnea <Nemo Carrasquillo PA-C - Last Filed: 10/12/24 21:23> Stated Complaint: cant breath <KULDEEP García Last Filed: 10/12/24 21:23> Time Seen by Provider: 10/12/24 16:53 <KULDEEP García Last Filed: 10/12/24 21:23> Source: patient and family <KULDEEP García Last Filed: 10/12/24 21:23> Mode of arrival: ambulatory <KULDEEP García Last Filed: 10/12/24 21:23> Limitations: no limitations <KULDEEP García Last Filed: 10/12/24 21:23> History of Present Illness HPI Narrative: Patient is a 74 y/o female, with PMH of AFIB on xarelto and diltiazem, COPD, chronic hypoxic resp failure on 1.5L NC at all times, who presents to the ED with report of SOB. Patient reports she has had increased difficulty breathing, productive cough, subjective fevers since . Family member at bedside states patient has been intermittently tripoding over the last 24 hours with difficulty breathing. She does have history of COPD, has been using inhaler nebulizers at home without improvement. Does complain of some pain throughout her anterior chest since yesterday. Denies pain or swelling in legs. Denies hemoptysis. <Nemo Carrasquillo PA-C - Last Filed: 10/12/24 21:23> Related Data Home Medications: Home Medications ?Medication ?Instructions ?Recorded ?Confirmed ?Last Taken ?Type pravastatin 20 mg tablet 20 mg PO HS 01/16/22 10/12/24 10/11/24 21:00 History magnesium oxide 400 mg (241.3 mg 400 mg PO DAILY 06/08/22 10/12/24 10/12/24 09:00 History magnesium) tablet acetaminophen 500 mg tablet 500 mg PO TID PRN Pain 09/24/22 10/12/24 Unknown History diltiazem HCl 120 mg 120 mg PO DAILY 10/24/22 10/12/24 10/12/24 History capsule,extended release 24 hr budesonide 160 mcg-glycopyr 9 2 inh inhalation BID 10/12/24 10/12/24 Unknown History mcg-formot 4.8 mcg/actuation HFA inhaler ([employer]) <Nemo Carrasquillo PA-C - Last Filed: 10/12/24 21:23> Allergies/Adverse Reactions: Allergies Allergy/AdvReac Type Severity Reaction Status Date / Time morphine Allergy Unknown ITCHING Verified 10/12/24 17:51 gabapentin Allergy Other Verified 10/12/24 17:51 <Nemo Carrasquillo PA-C - Last Filed: 10/12/24 21:23> Review of Systems Review of Systems: All systems reviewed & are unremarkable except as noted in HPI. <Nemo Carrasquillo PA-C - Last Filed: 10/12/24 21:23> All systems reviewed & are unremarkable except as noted in HPI and below <Nemo Carrasquillo PA-C - Last Filed: 10/12/24 21:23> [facility] Past Medical History Medical History: Medical History Pulmonary nodule 7 mm left lower lobe nodule increased in size compared to prior exam 2016 with recommended follow-up CT scan in March-April Patient stated she had a PET scan which was negative. 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 Severely reduced diffusion capacity Hypercholesterolemia Hypertension <Nemo Carrasquillo PA-C - Last Filed: 10/12/24 21:23> Surgical History Surgical History: Surgical History History of extraction of renal calculus History of 2 sections H/O cystoscopy <Nemo Carrasquillo PA-C - Last Filed: 10/12/24 21:23> Family History Family History: Family History (Updated 10/12/24 @ 23:06 by Karla Slaughter RN) Father Acute myocardial infarction Hypertension Mother Chronic obstructive pulmonary disease Diabetes mellitus Sibling Pulmonary hypertension Chronic obstructive pulmonary disease Hypertension <Nemo Carrasquillo PA-C - Last Filed: 10/12/24 21:23> Social History Social History: Social History Social History: She reports that her daughter and 2 grand children recently moved in with her. 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 She denies any significant alcohol use or illicit substance use. Code status: Full code Surrogate decision maker: Diana (daughter) Smoking packs per day: 1 Smoking cigarettes per day: 20.0 Years smoked: 50 Smoking pack-years: 50.00 Smoking status: Former smoker Tobacco type: cigarettes Second hand tobacco smoke exposure: Yes Smoking end date: 08/29/22 Alcohol intake: never Substance use: never Substance use type: does not use Do You Feel Safe in your Home?: Yes Lack of Transportation: No Lack of Food: Never True Current Housing: I Have Housing Concerned About Future Housing: No Difficulty Paying Gas/Electric Bills: No Difficulty Paying for Meds: No Currently Unemployed: No Education: Trade/Vocational Certificate Difficulty w/ Childcare or Family Care: No Spiritual care concerns: No <Nemo Carrasquillo PA-C - Last Filed: 10/12/24 21:23> Exam Narrative: GENERAL: Ill and fatigued appearing, thin/frail, in significant respiratory distress. HEAD: Normocephalic, atraumatic. RESPIRATORY: Airway patent, +respiratory distress, respirations labored, tachypneic, shallow. Speaking in short sentences. Patient in tripod position. Diminished lung sounds throughout, decreased air movement throughout. Scattered end expiratory wheezing. CARDIOVASCULAR: Tachycardic with irregular rhythm without murmurs, rubs, or gallops. Peripheral pulses intact. MUSCULOSKELETAL: Moves all extremities. No gross deformities. No edema. SKIN: Warm, dry, normal color. NEURO: A&O X3. Speech clear but difficult to speak due to respiratory distress. Cranial nerves II-XII grossly intact. No ataxic movements. PSYCHIATRIC: Appropriate mood and affect to situation. Normal interaction. <Nemo Carrasquillo PA-C - Last Filed: 10/12/24 21:23> Course PASTE WORKER/PA Physician Supervision For this patient encounter, I reviewed the PASTE WORKER or PA documentation, treatment plan, and medical decision making; and I had [id number] time with this patient. <Leonardo Branch MD - Last Filed: 10/13/24 07:44> Vital Signs Vital signs: Vital Signs Temperature 97.9 F 10/12/24 16:58 Pulse Rate 119 H 10/12/24 16:58 Respiratory Rate 23 H 10/12/24 16:58 Blood Pressure 179/79 H 10/12/24 16:58 Pulse Oximetry 77 L 10/12/24 16:58 Oxygen Delivery Nasal Cannula 10/12/24 16:58 Oxygen Flow Rate 3 10/12/24 16:58 Temperature 98.6 F 10/13/24 04:24 Pulse Rate 103 H 10/13/24 06:00 Respiratory Rate 20 10/13/24 06:00 Blood Pressure 126/63 10/13/24 04:24 Pulse Oximetry 97 10/13/24 04:24 Oxygen Delivery BiPAP 10/13/24 05:59 Oxygen Flow Rate 6 10/12/24 17:00 Fraction of Inspired Oxygen 10/13/24 04:10 <Nemo Carrasquillo PA-C - Last Filed: 10/12/24 21:23> Vital Signs Temperature 97.9 F 10/12/24 16:58 Pulse Rate 119 H 10/12/24 16:58 Respiratory Rate 23 H 10/12/24 16:58 Blood Pressure 179/79 H 10/12/24 16:58 Pulse Oximetry 77 L 10/12/24 16:58 Oxygen Delivery Nasal Cannula 10/12/24 16:58 Oxygen Flow Rate 3 10/12/24 16:58 Temperature 98.6 F 10/13/24 04:24 Pulse Rate 103 H 10/13/24 06:00 Respiratory Rate 20 10/13/24 06:00 Blood Pressure 126/63 10/13/24 04:24 Pulse Oximetry 97 10/13/24 04:24 Oxygen Delivery BiPAP 10/13/24 05:59 Oxygen Flow Rate 6 10/12/24 17:00 Fraction of Inspired Oxygen 10/13/24 04:10 <Leonardo Branch MD - Last Filed: 10/13/24 07:44> MDM - SOB/Dyspnea MDM Narrative Medical decision making narrative: Patient presented to ED with several day history of shortness of breath, history of COPD, recent cough, fevers. Upon arrival, patient is afebrile, tachycardic (HR ranging 110s-170s), tachypneic, hypoxic. Marked respiratory distress. Oxygen saturation was down into the upper 70s on 3L NC (patient typically wears 1.5L). She was transitioned quickly to non-rebreather at 15 L and oxygen saturations did respond however patient's respiratory drive did diminish slightly. Patient appeared very fatigued. Respiratory therapy was notified and patient was placed on BiPAP due to significant work of breathing. She has required bipap before per family. Continuous DuoNeb initiated as well as Solu-Medrol 125 mg IV. Patient responded very well to BiPAP. Improved WOB. Currently 12/6, rate 14, O2 35%. ABG was obtained on BiPAP, acidotic at 7.264, PCO2 50.9 Cbc with white blood cell count of 14.4. Neutrophil predominance. No bandemia. Per records, patient does appear to have a chronic leukocytosis. Likely hemoconcentration with elevated hemoglobin today around 15. Baseline hemoglobin per records around 10. Fluids are ongoing. Patient does appear dry. She admits to decreased p.o. intake over the last several days due to not feeling well. CMP with anion gap of 22. Slight RADHA noted with creatinine today of 1.28. Per records, baseline around 0.7. Lactic acid mildly elevated to 2.8. Otherwise stable electrolytes. RSV testing did result positive. Consistent with clinical picture. Initial EKG with rate dependent changes, nonspecific ST changes. Repeat EKG after bipap and stabilization of HR does appear improved. No STEMI. Baseline trop 0.012. Will continue to trend. BNP 743. Initial CXR clear, however given report of productive cough, fevers, profound hypoxia with respiratory distress, will initiate antibiotics to cover for potential infectious process. Blood cultures obtained. Rocephin, azithromycin, vancomycin started per ED antibiotic stewardship and given patient's clinical severity. CT of chest does show several foci of infectious /inflammatory process. Patient continues to remain stable at this time on BiPAP. Will be admitted for further evaluation. Patient and family in agreement with plan. All questions answered. Discussed case with Dr. Hathaway, hospitalist, accepted patient for admission to IMU. Will continue maintenance fluids. <Nemo Carrasquillo PA-C - Last Filed: 10/12/24 21:23> Medical Records Attestation: I reviewed the patient's medical records. <Nemo Carrasquillo PA-C - Last Filed: 10/12/24 21:23> Lab Data Attestation: I reviewed the patient's lab results. <Nemo Carrasquillo PA-C - Last Filed: 10/12/24 21:23> Result diagrams: 10/13/24 04:30 10/13/24 04:30 <Nemo Carrasquillo PA-C - Last Filed: 10/12/24 21:23> Labs: Lab Results 10/12/24 10/12/24 10/12/24 Range/Units 17:26 17:59 18:34 WBC 14.4 H (4.5-10.0) K/mm3 RBC 5.04 (4.2-5.4) M/mm3 Hgb 15.4 H D (12.0-15.0) g/dL Hct 49.1 H (37.0-47.0) % MCV 97.4 (80-100) fl MCH 30.6 (26-34) pg MCHC 31.4 L (32-36) g/dl RDW 12.7 (11.5-14.5) % Plt Count 261 (150-375) k/mm3 MPV 11.1 H (7.4-10.4) fl Immature Gran % (Auto) 0.3 (0-0.5) % Neut % (Auto) 75.6 H (45.5-73.1) % Lymph % (Auto) 11.4 L (18.3-44.2) % [place] % (Auto) 12.1 H (2.6-8.5) % Eos % (Auto) 0.0 (0-4.4) % Baso % (Auto) 0.6 (0.2-1.2) % Lymph # (Auto) 1.65 (0.9-3.2) K/mm3 [place] # (Auto) 1.8 H (0.1-0.6) K/mm3 Eos # (Auto) 0.0 (0-0.3) K/mm3 Baso # (Auto) 0.1 (0.0-0.1) K/mm3 Abs Immat Gran (auto) 0.04 H (0.00-0.031) K/mm3 Absolute Neuts (auto) 10.9 H (1.3-6.7) K/mm3 Absolute Nucleated RBC 0.000 (0.0-0.012) K/mm3 Nucleated RBC % 0.0 (0.0-0.2) % PT 18.2 H (11.1-14.7) Seconds INR 1.5 APTT 33.3 (22.3-36.8) Seconds Methemoglobin 0.3 (0-1.5) %THb Expiratory Pressure 6 cmH2O Inspiratory Pressure 12 cmH2O Sodium 141 (137-145) mmol/L Potassium 4.4 (3.4-5.0) mmol/L Chloride 98 (98-107) mmol/L Carbon Dioxide 21 L (22-30) mmol/L Anion Gap 22 H (4-12) mmol/L BUN 25 H (7-17) mg/dL Creatinine 1.28 H (0.7-1.0) mg/dL Estim Creat Clear Calc 26 ml/min Estimated GFR 41 L (59 - ) Glucose 112 H (65-110) mg/dL Lactic Acid 2.8 H (0.7-2.0) mmol/L Calcium 10.5 H (8.4-10.2) mg/dL Magnesium 2.4 H (1.6-2.3) mg/dL Total Bilirubin 1.2 (0.2-1.3) mg/dL AST 33 (14-36) U/L ALT 20 (6-35) U/L Alkaline Phosphatase 119 (38-126) U/L Troponin I 0.012 (0.000-0.034) ng/mL NT-Pro-B Natriuret Pep 743 H (19.9-100) pg/mL Total Protein 9.0 H (6.3-8.2) g/dL Albumin 4.5 (3.5-5.1) g/dL Nasal MRSA (PCR) Not detected (NOT DETECTE) Influenza A (RT-PCR) Negative (Negative) Influenza B (RT-PCR) Negative (Negative) RSV (RT-PCR) Positive A (Negative) SARS-CoV-2 RNA (RT-PCR) Negative (Negative) <Nemo Carrasquillo PA-C - Last Filed: 10/12/24 21:23> Lab Results 10/12/24 10/12/24 10/12/24 Range/Units 17:26 17:59 18:34 WBC 14.4 H (4.5-10.0) K/mm3 RBC 5.04 (4.2-5.4) M/mm3 Hgb 15.4 H D (12.0-15.0) g/dL Hct 49.1 H (37.0-47.0) % MCV 97.4 (80-100) fl MCH 30.6 (26-34) pg MCHC 31.4 L (32-36) g/dl RDW 12.7 (11.5-14.5) % Plt Count 261 (150-375) k/mm3 MPV 11.1 H (7.4-10.4) fl Immature Gran % (Auto) 0.3 (0-0.5) % Neut % (Auto) 75.6 H (45.5-73.1) % Lymph % (Auto) 11.4 L (18.3-44.2) % [place] % (Auto) 12.1 H (2.6-8.5) % Eos % (Auto) 0.0 (0-4.4) % Baso % (Auto) 0.6 (0.2-1.2) % Lymph # (Auto) 1.65 (0.9-3.2) K/mm3 [place] # (Auto) 1.8 H (0.1-0.6) K/mm3 Eos # (Auto) 0.0 (0-0.3) K/mm3 Baso # (Auto) 0.1 (0.0-0.1) K/mm3 Abs Immat Gran (auto) 0.04 H (0.00-0.031) K/mm3 Absolute Neuts (auto) 10.9 H (1.3-6.7) K/mm3 Absolute Nucleated RBC 0.000 (0.0-0.012) K/mm3 Nucleated RBC % 0.0 (0.0-0.2) % PT 18.2 H (11.1-14.7) Seconds INR 1.5 APTT 33.3 (22.3-36.8) Seconds Methemoglobin 0.3 (0-1.5) %THb Expiratory Pressure 6 cmH2O Inspiratory Pressure 12 cmH2O Sodium 141 (137-145) mmol/L Potassium 4.4 (3.4-5.0) mmol/L Chloride 98 (98-107) mmol/L Carbon Dioxide 21 L (22-30) mmol/L Anion Gap 22 H (4-12) mmol/L BUN 25 H (7-17) mg/dL Creatinine 1.28 H (0.7-1.0) mg/dL Estim Creat Clear Calc 26 ml/min Estimated GFR 41 L (59 - ) Glucose 112 H (65-110) mg/dL Lactic Acid 2.8 H (0.7-2.0) mmol/L Calcium 10.5 H (8.4-10.2) mg/dL Magnesium 2.4 H (1.6-2.3) mg/dL Total Bilirubin 1.2 (0.2-1.3) mg/dL AST 33 (14-36) U/L ALT 20 (6-35) U/L Alkaline Phosphatase 119 (38-126) U/L Troponin I 0.012 (0.000-0.034) ng/mL NT-Pro-B Natriuret Pep 743 H (19.9-100) pg/mL Total Protein 9.0 H (6.3-8.2) g/dL Albumin 4.5 (3.5-5.1) g/dL Nasal MRSA (PCR) Not detected (NOT DETECTE) Influenza A (RT-PCR) Negative (Negative) Influenza B (RT-PCR) Negative (Negative) RSV (RT-PCR) Positive A (Negative) SARS-CoV-2 RNA (RT-PCR) Negative (Negative) <Leonardo Branch MD - Last Filed: 10/13/24 07:44> ABG Data ABG results: 10/12/24 17:59 Puncture Site Right radial ABG pH 7.264 L* ABG pCO2 50.9 H ABG pO2 105.2 H ABG PO2/FiO2 Ratio 3.29 ABG HCO3 22.5 ABG O2 Saturation 97.0 ABG O2 Content 19.6 ABG Base Excess -4.9 A-a Gradient 63.4 Oxyhemoglobin 96.4 Carboxyhemoglobin 1.4 Reduced Hemoglobin 1.9 Total Hemoglobin 14.4 O2 Delivery Device Bipap O2 Liters/Min Not Reportable FiO2 32 <Nemo Carrasquillo PA-C - Last Filed: 10/12/24 21:23> 10/12/24 17:59 Puncture Site Right radial ABG pH 7.264 L* ABG pCO2 50.9 H ABG pO2 105.2 H ABG PO2/FiO2 Ratio 3.29 ABG HCO3 22.5 ABG O2 Saturation 97.0 ABG O2 Content 19.6 ABG Base Excess -4.9 A-a Gradient 63.4 Oxyhemoglobin 96.4 Carboxyhemoglobin 1.4 Reduced Hemoglobin 1.9 Total Hemoglobin 14.4 O2 Delivery Device Bipap O2 Liters/Min Not Reportable FiO2 32 <Leonardo Branch MD - Last Filed: 10/13/24 07:44> Attestation: I personally reviewed and interpreted this ABG as follows: <Nemo Carrasquillo PA-C - Last Filed: 10/12/24 21:23> Imaging Data Attestation: I personally reviewed and interpreted this imaging study as follows: <Nemo Carrasquillo PA-C - Last Filed: 10/12/24 21:23> Radiologist's impression: ITS Impressions Chest X-Ray 10/12/24 17:55 IMPRESSION: No acute cardiopulmonary process. ITS Impressions Chest X-Ray 10/12/24 17:55 IMPRESSION: No acute cardiopulmonary process. Chest CT 10/12/24 19:30 IMPRESSION: Scattered small, likely infectious/inflammatory foci, overlying a background of severe emphysematous change and largely stable areas of parenchymal scarring. Mild esophagitis/gastritis. Hepatic steatosis. <Nemo Carrasquillo PA-C - Last Filed: 10/12/24 21:23> ECG Data EKG #1: Attestation: I personally reviewed and interpreted this ECG as follows: <KULDEEP García Last Filed: 10/12/24 21:23> ECG completion date: 10/12/24 <Nemo Carrasquillo PA-C - Last Filed: 10/12/24 21:23> ECG completion time: 17:44 <Nemo Carrasquillo PA-C - Last Filed: 10/12/24 21:23> EKG Interpretation: normal rate (98), sinus rhythm and non-specific ST changes <Nemo Carrasquillo PA-C - Last Filed: 10/12/24 21:23> EKG #2: Attestation: I personally reviewed and interpreted this ECG as follows: <Nemo Carrasquillo PA-C - Last Filed: 10/12/24 21:23> ECG completion date: 10/12/24 <Nemo Carrasquillo PA-C - Last Filed: 10/12/24 21:23> ECG completion time: 20:33 <Nemo Carrasquillo PA-C - Last Filed: 10/12/24 21:23> EKG Interpretation: normal rate (89), sinus rhythm and non-specific ST changes <Nemo Carrasquillo PA-C - Last Filed: 10/12/24 21:23> Critical Care Time Critical Care Time Critical Care Time: Yes <Leonardo Branch MD - Last Filed: 10/13/24 07:44> Total Critical Care Time: 40 <Leonardo Branch MD - Last Filed: 10/13/24 07:44> Discharge Plan Discharge Clinical Impression: Acute and chronic respiratory failure with hypoxia, RADHA (acute kidney injury), Lactic acidosis, COPD exacerbation Respiratory syncytial virus (RSV) Qualifiers: RSV infection type: unspecified Qualified Code(s): B33.8 - Other specified viral diseases Pneumonia Qualifiers: Pneumonia type: due to unspecified organism Laterality: bilateral Lung location: unspecified part of lung Qualified Code(s): J18.9 - Pneumonia, unspecified organism <Nemo Carrasquillo PA-C - Last Filed: 10/12/24 21:23> Patient Disposition: Still a Patient <Nemo Carrasquillo PA-C - Last Filed: 10/12/24 21:23> Condition: Serious <Nemo Carrasquillo PA-C - Last Filed: 10/12/24 21:23>
--- NOTE | 2024-10-12 16:57 | ECG_ITS ---
Test Date: 2024-10-12 20:33:02 Measurements Intervals [place] Rate: 89 P: 89 OR: 142 QRS: -86 QRSD: 157 T: 84 QT: 472 QTc: 576 Interpretive Statements ATRIAL FLUTTER/TACHYCARDIA LEFT BUNDLE BRANCH BLOCK BASELINE ARTIFACT- I, II, III, AVR, AVL, AVF, V1-V6 ABNORMAL ECG Compared to ECG 10/12/2024 17:44:27 NO SIGNIFICANT CHANGE Electronically Signed On 10-13-2024 08:17:15 TALENT DEVELOPMENT SPECIALIST by Robby Mcgee D.O.
[2024-10-12] MEDS: IPRATROPIUM BR 0.02% INH SOLN 0.5 MG/2.5 ML VIAL 1.5 MG INHALATION (17:20)
[2024-10-12] MEDS: LEVALBUTEROL NEB 1.25 MG/3 ML 2.5 MG INHALATION (17:20)
[2024-10-12] MEDS: SODIUM CHLORIDE 0.9% IV 1,000 ML 999 ML IV CONT (17:20)
[2024-10-12] MEDS: methylPREDNISolone SOD SUCC 125 MG VIAL IV PUSH (17:20)
[2024-10-12 17:46] LABS: Basophils Absolute Auto 0.1 K/mm3 (0.0-0.1); Basophils Percent Auto 0.6 % (0.2-1.2); Hematocrit 49.1 % (37.0-47.0); Hemoglobin 15.4 g/dL (12.0-15.0); Immature Granulocyte Absolute 0.04 K/mm3 (0.00-0.031); Immature Granulocyte Percent A 0.3 % (0-0.5); Lymphocytes Absolute Auto 1.65 K/mm3 (0.9-3.2); Lymphocytes Percent Auto 11.4 % (18.3-44.2); Mean Corpuscular HGB Conc 31.4 g/dl (32-36); Mean Corpuscular Hemoglobin 30.6 pg (26-34); Mean Corpuscular Volume 97.4 fl (80-100); Mean Platelet Volume 11.1 fl (7.4-10.4); Monocytes Absolute Auto 1.8 K/mm3 (0.1-0.6); Monocytes Percent Auto 12.1 % (2.6-8.5); Neutrophils Absolute Auto 10.9 K/mm3 (1.3-6.7); Neutrophils Percent Auto 75.6 % (45.5-73.1); Platelet Count Result 261 k/mm3 (150-375); Red Blood Count 5.04 M/mm3 (4.2-5.4); Red Cell Distribution Width 12.7 % (11.5-14.5); White Blood Count 14.4 K/mm3 (4.5-10.0)
[2024-10-12 17:54] LABS: Lactic Acid Reflex 2.8 mmol/L (0.7-2.0)
[2024-10-12 17:56] LABS: INR 1.5; Prothrombin Time 18.2 Seconds (11.1-14.7)
[2024-10-12 17:57] LABS: Alanine Aminotransferase 20 U/L (6-35); Albumin Level 4.5 g/dL (3.5-5.1); Alkaline Phosphatase 119 U/L (38-126); Anion Gap 22 mmol/L (4-12); Aspartate Amino Transferase 33 U/L (14-36); Bilirubin,Total 1.2 mg/dL (0.2-1.3); Blood Urea Nitrogen 25 mg/dL (7-17); Calcium 10.5 mg/dL (8.4-10.2); Carbon Dioxide 21 mmol/L (22-30); Chloride 98 mmol/L (98-107); Estimated CRCL calculation 26 ml/min; Estimated Glomerular Filt Rate 41; Glucose 112 mg/dL (65-110); Magnesium 2.4 mg/dL (1.6-2.3); Potassium 4.4 mmol/L (3.4-5.0); Sodium 141 mmol/L (137-145)
[2024-10-12 17:58] LABS: Partial Thromboplastin Time 33.3 Seconds (22.3-36.8)
[2024-10-12 18:07] LABS: NT Pro B Type Natriuretic Pept 743 pg/mL (19.9-100); Troponin I 0.012 ng/mL (0.000-0.034)
--- OUTSIDE RECORDS SUMMARY | 2024-10-12 18:10 | XMS_ITS | Referral Summary ---
Author Organization [facility] [address] [facility] [address] [facility] [address] [place] [address] Care Team Providers Care Roll Weigher Name Role Phone Emile Julio MD Primary [...] on file Legal Sex Female 11:13 AM PRIMER CHARGER Gender Identity Not on file Sexual Orientation [...] Plan of Treatment Not on file Insurance [facility] Care Teams Roll Weigher Relationship Specialty Start Date End Date Emile Julio MD [address] [facility] [address] [place] [address] PCP - General Internal Medicine 12/19/23
--- OUTSIDE RECORDS SUMMARY | 2024-10-12 18:10 | XMS_ITS | Clinical Summary ---
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
--- OUTSIDE RECORDS SUMMARY | 2024-10-12 18:10 | XMS_ITS | Clinical Summary ---
Author Organization [facility] Address [address] [place] [address] Phone Care Team Providers Care Bituminous Distributor Operator Name Role Phone Provider, Unknown Primary Care Provider Robert Keenan APRN, LIPSTICK MOLDER Unavailable [phone] Allergies Active Allergy Reactions Criticality Noted Date [...] AT BEDTIME 3 Active ergocalciferol (VITAMIN D) 52221 UNIT Capsule Take 1.25 mg by mouth [...] Comments Blood Pressure 151/76 08/01/2023 2:05 PM [employer] Pulse 90 08/01/2023 2:05 PM [employer] Temperature 37.1 C (98.8 F) 08/01/2023 2:05 PM [employer] Respiratory Rate 19 08/01/2023 2:05 PM [employer] Oxygen Saturation 93% 08/01/2023 2:05 PM [employer] Inhaled Oxygen Concentration - - Weight 43.1 kg (95 lb) 08/01/2023 2:05 PM [employer] Height 154.9 cm (5' 1 ) 08/01/2023 2:05 PM [employer] Body Mass Index 17.95 08/01/2023 2:05 PM [employer] Plan of Treatment Health Maintenance Due Date [...] topic Insurance MEDICARE C [place] Care Teams Bituminous Distributor Operator Relationship Specialty Start Date End Date Provider, Unknown UNKNOWN PCP - General 08/01/23 Robert Kennedy, ALMOND HULLER, LIPSTICK MOLDER [address] [place] [address] Nurse Practitioner Advanced Practice Nurse 07/22/23
--- OUTSIDE RECORDS SUMMARY | 2024-10-12 18:10 | XMS_ITS | Continuity of Care Document ---
Author Organization [facility] Address [address] [place] [address] Phone Care Team Providers Care Plasterer Apprentice Name Role Phone Hankins OD, Michael Unavailable Unavailable Procedures Procedure Date Visual Field Examination(s) Office/outpatient Visit, Est Office/outpatient Visit, Est Visual Field Examination(s) BF Plastic Sphcyl Revere To +/-4d .12-2d Frames Deluxe Tax - Medical Eye Exam & Treatment Refraction Office/outpatient Visit, Est Visual Field Examination(s) Advance Directives Directive Yes / No Effective Date File Name No Information Encounters Encounter Description Practice Location Reason(s) For Visit Diagnoses Date Provider Providers Copied on Encounter [facility], [address] [place] [address] [address], [place], [place], [id number], [place] tel:[phone] [facility] No Information 9-201 0 Hankins OD Michael. [facility] [address], [place], [address], [place]. tel:[phone] Referring Provider: [facility]ad[facility] [address], [place], [address]. tel:[phone] Office/outpat ient Visit, Est [facility], [address], [place], [place], [id number], [place] tel:[phone] [facility] No Information Humberto-0 1-201 0 Hankins OD Michael. [address] [place] [address] , [address], [place], [address], [place]. tel:[phone] Office/outpat ient Visit, Est [facility], [address], [place], [place], [address], [place] tel:[phone] [facility] No Information Oct-2 0-200 9 Hankins OD Michael. [address] [place] [address] , [address], [place], [address], [place]. tel:[phone] [facility], [address], [place], [place], [address], [place] tel:[phone] [facility] No Information Humberto-0 2-200 9 Hankins OD Michael. [address] [place] [address] , [address], [place], [address], [place]. tel:[phone] Referring Provider: Michael Hankins OD A, [address] [place] [address] [address], [place], [address]. tel:[phone] [facility], [address], [place], [place], [address], [place] tel:[phone] [facility] No Information Feb-2 4-200 9 [facility] . [address] [facility], [address], [place], [place], [address], [place]. tel:[phone] Referring Provider: Michael Hankins OD A, [address] [place] [address] [address], [place], [address]. tel:[phone] sulting Provider: Low Linn, [address] [place], [place] [address]ate Ctr, [place], [address]. tel:[phone] [facility], [address], [place], [place], [address], [place] tel:[phone] [facility] No Information 2 1-200 9 Hankins OD Michael. [address] [place] [address] , [address], [place], [address], [place]. tel:[phone] Office/outpat ient Visit, Est [facility], [address], [place], [place], [address], tel:[phone] [facility] No Information Sep-0 9-200 8 Hankins OD Michael. [address] [place] [address] , [address], [place], [place], [facility], [place]. tel:[phone] [facility], [address], [place], [place], [address], [place] tel:[phone] [facility] No Information Humberto-0 7-200 7 Hankins OD Michael. [address] [place] [address] , [address], [place], [facility], [place]. tel:[phone] Referring Provider: Michael Tinoco, [address] [place] [address] [address], [place], [address]. tel:[phone] Family History Family Member Type Diagnosis Age [...]
--- OUTSIDE RECORDS SUMMARY | 2024-10-12 18:11 | XMS_ITS | Clinical Summary ---
Author Organization [facility] [employer] Address [address] [place] [address] Care Team Providers Care [employer] Special Education Teacher Name Role Phone Silverio Gutierrez MD Primary Care Provider Moni Quintanilla APRN-ADMINISTRATOR OF HOME HEALTH Unavailable U navailable Source Comments [facility] [employer],non-owned Affiliates and Associated Physician Practices is amultiple site organization consisting of ambulatory clinics and hospital sitesin [place], [place], [place] and [place]. This disclosure is being madepursuant to the Care Everywhere program and may not contain all information available regarding this patient. Last updated 18.[facility] [employer] Allergies Active Allergy Reactions Criticality Noted Date [...] age to complete this topic Care Teams [employer] Special [employer] Teacher Relationship Specialty Start Date End Date Silverio Gutierrez MD [address] [place] [phone] PCP - General Internal Medicine 06/24/19 Moni Quintanilla APRN-JHON Update Information Acquisition Marketing Coordinator Nurse Practitioner 02/26/20
--- OUTSIDE RECORDS SUMMARY | 2024-10-12 18:11 | XMS_ITS | Patient Health Summary ---
Author Organization [facility] Address [address] [place] [address] Care Team Providers Care Hospital Orderly Name Role Phone Silverio Gutierrez MD Primary Care Provider [phone] Moni Quintanilla APRN-POWER HOUSE CONTROL ROOM OPERATOR Unavailable U navailable Note from [facility],non-owned Affiliates and Associated Physician Practices is amultiple site organization consisting of ambulatory clinics and hospital sitesin [place], [place] and [place]. This disclosure is being madepursuant to the Care Everywhere program and may not contain all information available regarding this patient. Last updated 18.[facility] Allergies * Codeine(Itching) * Doxycycline(Nausea and/or Vomiting) [...] Resulting Agency Comment Lab Testing performed at: [facility] [address] [id number] Tylor Thekkemuriyil MD LAB - HEMATOLOGY O RDERABLES [facility] INSURANCE BILL [address] [place] [address] * (ABNORMAL) COMPREHENSIVE METABOLIC PANEL (04/13/2021 3:16 [...] Agency Comment Lab Testing performed at: [facility] [address] [facility] [id number] Tylor Duval MD LAB - CHEMISTRY OR DERABLES [facility] INSURANCE BILL [address] [place] [address] * LAB (10/02/2020) Tylor Duval MD SCANNING [...] Resulting Agency Comment Lab Testing performed at: [facility] [id number] Tylor Duval MD LAB - CHEMISTRY OR DERABLES Performing Organization Address [facility] Co de Phone Number [facility] INSURANCE BILL [address] [place] [address] * (ABNORMAL) CYCLIC CITRUL PEPTIDE ANTIBODY IGG/IGA (CCP) (06/24/2019 12:11 PM CDT) CCP Antibodies IgG/IgA >250(H) 0 - 19 units [facility] INSURANCE BILL Comment: Negative <20 Weak positive 20 - 39 Moderate positive 40 - 59 Strong positive >59 FASTING Blood BLOOD SPECIMEN / Unknown 06/24/2019 12:11 PM CDT 06/24/2019 Narrative Resulting Agency Comment Lab Testing performed at: [facility] [id number] Tylor Duval MD LAB - SEROLOGY ORD ERABLES Performing Organization Address [facility] de Phone Number [facility] INSURANCE BILL [address] [place] [address] * (ABNORMAL) RHEUMATOID FACTOR BLOOD QUANTITATIVE (06/24/2019 12:11 PM CDT) Pathologist [facility] Rheumatoid Factor 149(H) <30 IU/mL [facility] INSURANCE BILL Comment:FASTING Blood BLOOD SPECIMEN / Unknown 06/24/2019 12:11 PM CDT 06/24/2019 Narrative Resulting Agency Comment Lab Testing performed at: [facility] [address] [facility] [id number] Tylor Duval MD LAB - CHEMISTRY OR DERABLES Performing Organization Address City/[facility]/ZIP Co de Phone Number [facility] INSURANCE BILL [address] [place] [address] * (ABNORMAL) C-REACTIVE PROTEIN (06/24/2019 12:11 PM CDT) C-Reactive Protein 0.80(H) <=0.50 mg/dL [facility] INSURANCE BILL Comment:FASTING Blood BLOOD SPECIMEN / Unknown 06/24/2019 12:11 PM CDT 06/24/2019 Narrative Resulting Agency Comment Lab Testing performed at: [facility] [address] [place] [id number] Tylor Duval MD LAB - CHEMISTRY OR DERABLES Performing Organization Address [facility] Co de Phone Number [facility] INSURANCE BILL [address] [place] [address] * PTH INTACT (06/24/2019 12:11 PM CDT) PTH Intact 32 15 - 65 pg/mL [facility] INSURANCE BILL Comment:FASTING Blood BLOOD SPECIMEN / Unknown 06/24/2019 12:11 PM CDT 06/24/2019 Narrative Resulting Agency Comment [facility] performed [facility]: [facility] [address] [facility] [id number] Tylor Duvla MD LAB - CHEMISTRY OR DERABLES Performing Organization Address [facility] de Phone Number [facility] INSURANCE BILL [address] [place] [address] * (ABNORMAL) VITAMIN D 25-HYDROXY (06/24/2019 12:11 PM CDT) Vitamin D, 25 Hydroxy 12.1(L) 30 - 100 ng/mL [facility] INSURANCE BILL Comment: Vitamin D Status: Deficiency <20 ng/mL Insufficiency 20-30 ng/mL Sufficiency 30-100 ng/mL Toxicity >100 ng/mL FASTING Blood BLOOD SPECIMEN / Unknown 06/24/2019 12:11 PM CDT 06/24/2019 Narrative Resulting Agency Comment Lab Testing performed at: [facility] [address] [facility] [id number] Tylor Duval MD LAB - CHEMISTRY OR DERABLES Performing Organization Address [facility] Co de Phone Number [facility] INSURANCE BILL [address] [place] [address] * ANGIOTENSIN CONVERTING ENZYME BLOOD (06/24/2019 12:11 PM CDT) Angiotensin-Con verting Enzyme 28 14 - 82 U/L [facility] INSURANCE BILL Comment:FASTING Blood BLOOD SPECIMEN / Unknown 06/24/2019 12:11 PM CDT 06/24/2019 Narrative Resulting Agency Comment Lab Testing performed at: [facility] [address] [facility] [id number] Tylor Duval MD LAB - CHEMISTRY OR DERABLES Performing Organization Address [facility] Co de Phone Number [facility] INSURANCE BILL [address] [place] [address] * ERYTHROCYTE SEDIMENTATION RATE (06/24/2019 12:11 PM CDT) Erythrocyte Sedimentation Rate Westergren 16 0 - 30 MM/HR [facility] INSURANCE BILL Comment:FASTING Blood BLOOD SPECIMEN / Unknown 06/24/2019 12:11 PM CDT 06/24/2019 Narrative Resulting Agency Comment Lab Testing performed at: [address] [id number] Tylor Duval MD LAB - HEMATOLOGY O RDERABLES Performing Organization Address [facility] de Phone Number [facility] INSURANCE BILL [address] [place] [address] * FERRITIN (06/24/2019 12:11 PM CDT) Ferritin 199 5 - 204 ng/mL [facility] INSURANCE BILL Comment:FASTING Blood BLOOD SPECIMEN / Unknown 06/24/2019 12:11 PM CDT 06/24/2019 Narrative Resulting Agency Comment Lab Testing performed at: [facility] [address] [place] [id number] Tylor Duval MD LAB - CHEMISTRY OR DERABLES Performing Organization Address City/[facility]/ZIP Co de Phone Number [facility] INSURANCE BILL [address] [place] [address] Care Teams Hospital Orderly Relationship Specialty Start Date End Date Silverio Gutierrez MD [facility] [place], [place] [id number] PCP - General Internal Medicine 06/24/19 Moni Quintanilla, OLIVERIO-POWER HOUSE CONTROL ROOM OPERATOR Update Information Supervisor Fiber Locking Nurse Practitioner 02/26/20
--- OUTSIDE RECORDS SUMMARY | 2024-10-12 18:11 | XMS_ITS | CONTINUITY OF CARE DOCUMENT ---
Author Name nanda vee Address Unknown Organization [facility] Address [address] [place] [address] Phone [phone] Care Team Providers Care Coil Tier Name Role Phone Aniket TRAVIS, Archie Unavailable SILVER CANAS Unavailable [phone] HOPSILVER RAMIREZ Unavailable [phone] PROBLEMS Condition Status Date Provider Notes Abnormal urinalysis finding active Misbah patel RN Atrial fibrillation active Brigid Chrun Fatigue active Archie Marcial MD Shortness of breath active Archie Marcial MD COPD active Archie Marcial MD HTN essential active Archie Marcial MD Urinary disorder active Arcihe Marcial MD Pulmonary lesion active Archie Marcial MD Tobacco abuse, quit 09/21 active Archie koch MD ENCOUNTERS Date Type Provider Location Encounter Diag nosis - In-person encounter Office Visit Archie Marcial MD [place] [facility] - In-person encounter Office Visit Archie Marcial MD [place] [facility] - In-person encounter Office Visit Archie Marcial MD [place] [facility] - In-person encounter Office Visit Archie Marcial MD [place] [facility] - In-person encounter Office Visit Archie Marcial MD [place] [facility] - In-person encounter Office Visit Archie Marcial MD [place] [facility] - In-person encounter Office Visit Archie Marcial MD [place] [facility] - In-person encounter Office Visit Archie Marcial MD [place] [facility] - In-person encounter Office Visit Archie Marcial MD [place] [facility] - In-person encounter Office Visit Archie Marcial MD [place] [facility] Pulmonary lesion - In-person encounter Office Visit Archie Marcial MD [place] [facility] - In-person encounter Office Visit Archie Marcial MD [place] [facility] Urinary disorder - In-person encounter Office Visit Archie Marcial MD [place] [facility] - In-person encounter Office Visit Archie Marcial MD [place] [facility] HTN essential - In-person encounter Office Visit Archie Marcial MD [place] [facility] COPD - In-person encounter Office Visit Archie Marcial MD [place] [facility] - In-person encounter Office Visit Archie Marcial MD [place] [facility] FatigueShortness of breath - In-person encounter Office Visit Archie Marcial MD [place] [facility] - In-person encounter Office Visit Archie Marcial MD [place] [facility] Tobacco abuse, quit 09/21 - In-person encounter Office Visit Archie Marcial MD [place] [facility] - In-person encounter Office Visit Archie Marcial MD [place] [facility] Tobacco abuse, quit 09/21 VITAL SIGNS [...] Corteserson pulse rate 65 /min Danita Cortesalban [facility] respiratory rate E&M 16 /min Adán don Jhaveri blood pressure, cuff size small Ri karla Corteserson weight E&M 81 [lb_av] Danita Turpin [facility] height E&M 63 [in_i] Danita Cortesalban [facility] Body Mass Index (Ratio) 13.64 kg/m2 Dante Marcial MD blood pressure, cuff size small Ke rri Domitila blood pressure, diastolic 83 mm[Hg] Ke rri Guadalupe blood pressure, systolic 162 mm[Hg] Letty Ramesh oxygen saturation, oximetry 96 % Jaeny Ramesh respiratory rate E&M 14 /min Janey [...] Kwesi Santana blood pressure, diastolic 68 mm[Hg] [facility] Santana blood pressure, systolic 107 mm[Hg] [facility] respiratory rate E&M 18 /min [facility] weight E&M 78.8 [lb_av] Kwesi Montgomery aparicio height E&M 63 [in_i] [facility] aparicio Body Mass Index (Ratio) 14.17 kg/m2 Dante Marcial MD blood pressure, cuff size small Ke rri Aubreyuenegerardo blood pressure, diastolic 90 mm[Hg] Ke rri Gruenenfeldalban blood pressure, systolic 146 mm[Hg] Letty ri Domitila oxygen saturation, oximetry 93 % Janey Domitila respiratory rate E&M 16 /min Janey nieto pulse rate 69 /min Janey Raghav er weight E&M 80 [lb_av] Janey Noblenesusi acstilloer height E&M 63 [in_i] Janey Noblenenfflorencia er Body Mass Index (Ratio) 14.52 kg/m2 Dante Marcial MD blood pressure, cuff size small Ke rri Aubreyueneamiraeldalban blood pressure, diastolic 80 mm[Hg] Ke rri Aubreyueneamiraeldalban blood pressure, systolic 102 mm[Hg] Letty Cabralesleonela oxygen saturation, oximetry 95 % Janey Burgoschristelamiraleonela respiratory rate E&M 16 /min Janey Brown deuceelielder pulse rate 81 /min Janey Avilez lder weight E&M 82 [lb_av] Janey Dickeynenfe [facility] height E&M 63 [in_i] Janey Cabralese [facility] Body Mass Index (Ratio) 15.59 kg/m2 Dante Marcial MD blood pressure, diastolic 79 mm[Hg] Cy nttnken Grant blood pressure, systolic 133 mm[Hg] Christal [...] Robert blood pressure, systolic 153 mm[Hg] Farheen Robert oxygen saturation, oximetry 95 [...] er height E&M 63 [in_i] Janey Avilez [facility] ALLERGIES Allergy Name Onset Date Reaction Criticality [...] required Archie Marcial MD cigarette use yes Janey gipson [...] 2 /d [place] Aguilarirez exercise type housework [facility] physical exercise, f requency, days per week 5 /wk [facility] seatbelt usage 100 % Zabrina wolfe [...] Domitila smoking, year quit 2016 Janey Wilson sylvester cigarette use yes Janey Cabrales [facility] smoking status Former smoker Janey Burgosolesyaprakash rosalie FAMILY HISTORY Family Member Condition Mother Negative FH of Coron ephraim Artery Disease Father Family History of Owens dden Cardiac : Father Family History of Hy pertension: Father Family History of Hy perlipidemia: Father Family History of CV A or Stroke: INSURANCE PROVIDERS Payer name Policy type / Coverage type [place] red green party ID [place] Medicare [place] Medicaid [id number] [place] MED[place] Medicare 3000 [id number] ADVANCE DIRECTIVES Name Date DISCUSSED - NO DECISION MADE TREATMENT PLAN Date Name Performer [id number],S,S ystolic BP was 116 today P rior [...] mouth once a day Archie Marcial MD [id number],S,S he has to continue the xarelto. H er updated medication list for this problem includes: Sotalol Af 80 Mg Tablet (Sotalol) ..... Take 1 tablet by mouth twice daily Sotalol Af 80 Mg Tablet (Sotalol) ..... Take 1 tablet by mouth twice a day take 1 tablet by mouth twice daily Archie Marcial MD [id number],C, F ound on CT chest per pulmonogist Archie Marcial MD [id number],S, Archie Marcial MD [id number],C,H er last episode was in April and since that time she has been okay on her Sotalol. If it becomes more frequent we can send her for consider for Ablation or start her on Tikosyn especially since her QTC on the last one was 470 Archie Marcial MD [id number],C, B P today: 141/70 P rior BP: [...] mouth once a day Archie Marcial MD [id number],C, B P today: 162/83 P rior BP: 149/76 (11/18/2021) Labs Reviewed: C reat: 0.83 (12/15/2017) Her updated medication list for this problem includes: Sotalol Af 80 Mg Tablet (Sotalol) ..... Take 1/2 tablet in am 1 tab in pm Cardizem Cd 120 Mg Capsule,extended Release 24hr (Diltiazem hcl) ..... Take 1 capsule by mouth once a day Karla Rea NP [id number],C, pt presented to [place] ER 05/01 with palpitations. pt was found [...] magnesium oxide 400mg daily Karla Rea NP [id number],B, Archie Marcial MD [id number],C,e levated BP which she states that it could be do walking. B P today: 160/100 P rior BP: 124/82 (04/26/2021) Labs Reviewed: C reat: 0.83 (12/15/2017) W ill get ambulatory BP and take Cadizem 120 mg daily. Archie Marcial MD [id number],B,W ent into Afib about 3 weeks ago. seem to be doing better overall since then. It seems to be triggered when she gets a UTI. Archie Marcial MD [id number],S, Archie Marcial MD [id number],B, N o new SOB. Archie Marcial MD [id number],S, B P today: 124/82 P rior BP: 107/68 (03/15/2021) Her updated medication list for this problem includes: Sotalol Af 80 Mg Tablet (Sotalol) ..... Take one half tablet in the morning and one full tablet at night Archie Marcial MD [id number],B, i n SR, continue xarelto and sotalol to keep in SR n o afib no holter 04/2021 Archie Marcial MD [id number],S, Archie Marcial MD [id number],S, Archie Marcial MD [id number],B, B P today: 107/68 P rior BP: 146/90 (12/31/2020) Labs Reviewed: C reat: 0.83 (12/15/2017) Her updated medication list for this problem includes: Sotalol Hcl (af) 80 Mg Oral Tablet (Sotalol hcl af) ..... Take one half tablet in the morning and one full tablet at night Archie Marcial MD [id number],B,i n SR, continue xarelto and sotalol to [...] last one was 470 Archie Marcial MD Cardiology: B P today: 141/70 P [...] Rea NP Cardiology: pt prese nted to [place] ER 05/01 with palpitations. pt was found [...] at night Archie Marcial MD Cardiology Follow u p : i n SR, continue xarelto and [...] and d/c Losartan (to avoid hypotension). Archie Marcial MD Cardiology follow up :Found on CT [...] ntrolled on sotalol 40mg BID and Cardizem. 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 ECG shows sinus rhythm with normal QTc; however, will leave her on 40mg BID because she is well controlled on that dose. Archie Marcial MD Cardiology:Rate cont rolled on sotalol 40mg BID and Cardizem. 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 ECG shows sinus rhythm with normal QTc; however, will leave her on 40mg BID because she is well controlled on that dose. Archie Macrial MD Cardiology Hospital Follow up :Patient has quit smoking. Archie Marcial MD Cardiology Hospital Follow up :Tachycardia has resolved. R ate is 72 today. Will increase Cardizem to 240mg once daily and monitor with EKG in one month at next follow up. Archie Marcial MD Cardiology Follow up :Seen on today's EKG. H R in 160s. Patient is currently on Xarelto. W ill schedule her to give her Sotalol tomorrow. Archie Marcial MD Cardiology Follow up :Patient was a former smoker, but has recent quit. Acrhie Macrial MD Date Name BASIC METABOLIC PANE L [...] - Prof Archie Marcial MD completed SNOMED-CT: 771758969368829 Current Medications Documented Archie Marcial MD completed SNOMED-CT: 03585609 Physical Exam, Performed: Pulse Exam of Foot Archie Marcial MD completed SNOMED-CT: 782358092548779 Current Medications Documented Archie Marcial MD completed SNOMED-CT: 54879212 Physical Exam, Performed: Pulse Exam of Foot Archie Marcial MD completed EKG Archie Marcial MD completed SNOMED-CT: 708424797391030 Current Medications Documented Archie Marcial MD completed Event Monitor Gabriel Solis MD compl eted
--- OUTSIDE RECORDS SUMMARY | 2024-10-12 18:11 | XMS_ITS | Clinical Summary ---
Author Organization [facility] Address [address] [facility] [address] [address] Care Team Providers Care Guest Services Lead Name Role Phone Eulalia Julio MD Primary Care Provider [phone] Encounters Date Type Department Care Team Description 10/08/2024 Documentation Only [facility], [address] [address] Provider, MD Enma from Last [...] patient's age to complete this topic [place] [address] [address] DUAL OPTIONS ([id number]) Care Teams Guest Services Lead Relationship Specialty Start Date End Date Eulalia Julio MD [address] [facility], [address] [place] [address] PCP - General Internal Medicine 10/08/24
--- OUTSIDE RECORDS SUMMARY | 2024-10-12 18:11 | XMS_ITS | Referral Summary ---
Author Organization [facility] Address [address] [place] [address] [place] [address] Care Team Providers Care Service Team Leader Name Role Phone Silverio Gutierrez MD Primary Care Provider [phone] Moni Quintanilla APRN-GAS LEAK INSPECTOR Unavailable U navailable Source Comments [facility],non-owned Affiliates and Associated Physician Practices is amultiple site organization consisting of ambulatory clinics and hospital sitesin [place], [place], [place] and [place]. This disclosure is being madepursuant to the Care Everywhere program and may not contain all information available regarding this patient. Last updated 18.[facility] [employer] Allergies Active Allergy Reactions Criticality Noted Date [...] of Treatment Not on file Care Teams Service Team Leader Relationship Specialty Start Date End Date Silverio Gutierrez MD [address] [place], [place] [id number] PCP - General Internal Medicine 06/24/19 Moni Quintanilla, AUCTION ASSISTANT-GAS LEAK INSPECTOR Update Information Bobbin Winder Tender Nurse Practitioner 02/26/20
[2024-10-12 18:13] LABS: Alveolar/Arterial O2 Gradient 63.4 mmHg; Base Excess ABG -4.9 mEq/l (+/-2.0); Carboxyhemoglobin 1.4 % THb (0-2.0); Fractional Inspired Oxygen 32 %; HCO3 ABG 22.5 mEq/l (22.0-26.0); Methemoglobin ABG 0.3 %THb (0-1.5); Oxygen Content ABG 19.6 %vol (16.0-22.0); Oxyhemoglobin 96.4 % THb (90.0-100.0); PCO2 ABG 50.9 mmHg (35.0-45.0); PO2 ABG 105.2 mmHg (80.0-100.0); PO2 FiO2 Ratio Arterial Blood 3.29 %; Reduced Hemoglobin 1.9 %THb (0-5.0); Total Hemoglobin 14.4 g/dL (12.0-18.0)
[2024-10-12 18:22] LABS: Influenza A QL RT-PCR Negative (Negative); Influenza B QL RT-PCR Negative (Negative); RSV RNA, RT-PCR Positive (Negative); SARS-CoV-2 RNA PCR Negative (Negative)
[2024-10-12 18:33] LABS: Device BIPAP; Modified Allen's Test Pass; Site Drawn RIGHT RADIAL; pH ABG 7.264 (7.350-7.450)
[2024-10-12 18:34] LABS: Expiratory Pressure 6 cmH2O; Inspiratory Pressure 12 cmH2O
--- NOTE | 2024-10-12 19:03 | PC.NURSE ---
Per MAICO Ji, pt. should remain on BiPAP to go to CT. RT notified.
--- NOTE | 2024-10-12 19:20 | PC.NURSE ---
Pt taken to CT on a monitor with this RN and RT at bedside.
--- NOTE | 2024-10-12 19:35 | PC.NURSE ---
Report received from CHANNING Laughlin. Assumed care of patient at this time. Family at bedside. Call light within reach.
[2024-10-12 19:50] LABS: MRSA (PCR) NOT DETECTED (NOT DETECTE)
[2024-10-12] MEDS: SODIUM CHLORIDE 0.9% IV 500 ML 999 ML IV CONT (19:56)
[2024-10-12] MEDS: VANCOMYCIN 1,250 MG/NS 250 ML 1,250 MG/250 ML BAG 166.67 MG IVPB (19:57)
[2024-10-12 20:40] LABS: Reflex Lactic Acid Yes or No Add Lactic
[2024-10-12 20:57] LABS: Troponin I 0.021 ng/mL (0.000-0.034)
[2024-10-12] MEDS: AZITHROMYCIN 500 MG/NS 250 ML 500 MG/250 ML BAG 250 MG IVPB (21:37)
--- NOTE | 2024-10-12 23:26 | PM.IMHP ---
H&P: HPI History of Present Illness Date/Time: 10/12/24 23:26 Chief Complaint: Shortness of breath and cough Narrative: This is a 74-year-old female with a past medical history prior tobacco abuse, COPD and chronic respiratory failure on 3 L nasal cannula continuously, atrial fibrillation on Xarelto, hypertension, hypercholesterolemia, polycythemia secondary to hypoxia, pulmonary nodule. She is accompanied by her who she lives with and her daughter. The patient quit smoking 2 years prior and has not been hospitalized since then either. She has been in her normal state of health and does not frequently use her inhalers or nebulizers. In the past 2 days she has used them multiple times due to shortness of breath and a cough productive of green/whitfield sputum. She denies chest pain. On 10/11/2024 the patient presents to [place] ER due to severe difficulty breathing. ER nurse practitioner note patient was tripoding on arrival. Tachypnea with respiratory rate 24-27. Vitals otherwise stable. WBC 14.4, hemoglobin 15.4, ABG demonstrating pH 7.264, pCO2 50.9, PO2 105.2 on BiPAP, bicarb 22.5. BUN 25, serum creatinine 1.28, lactic acid 2.8, RSV PCR positive. The patient was given vancomycin ceftriaxone and azithromycin, Solu-Medrol 125 mg IV push x1, 2 L normal saline bolus, breathing treatments and placed on BiPAP. Her symptomatology improved greatly. Review of Systems Review of Systems: All systems reviewed & are unremarkable except as noted in HPI and below (HPI) [facility] Past Medical History Medical History Pulmonary nodule 7 mm left lower lobe nodule increased in size compared to prior exam 2017 with recommended follow-up CT scan in March-April Patient stated she had a PET scan which was negative. 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 Severely reduced diffusion capacity Hypercholesterolemia Hypertension Surgical History Surgical History History of extraction of renal calculus History of 2 sections H/O cystoscopy Family History Family History (Updated 10/12/24 @ 23:06 by Karla Slaughter RN) Father Acute myocardial infarction Hypertension Mother Chronic obstructive pulmonary disease Diabetes mellitus Sibling Pulmonary hypertension Chronic obstructive pulmonary disease Hypertension Social History Social History Social History: She reports that her daughter and 2 grand children recently moved in with her. 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 She denies any significant alcohol use or illicit substance use. Code status: Full code Surrogate decision maker: Diana (daughter) Smoking packs per day: 1 Smoking cigarettes per day: 20.0 Years smoked: 50 Smoking pack-years: 50.00 Smoking status: Former smoker Tobacco type: cigarettes Second hand tobacco smoke exposure: Yes Smoking end date: 08/29/22 Alcohol intake: never Substance use: never Substance use type: does not use Do You Feel Safe in your Home?: Yes Lack of Transportation: No Lack of Food: Never True Current Housing: I Have Housing Concerned About Future Housing: No Difficulty Paying Gas/Electric Bills: No Difficulty Paying for Meds: No Currently Unemployed: No Education: Trade/Vocational Certificate Difficulty w/ Childcare or Family Care: No Spiritual care concerns: No Meds Home Medications and Allergies Home Medications ?Medication ?Instructions ?Recorded ?Confirmed ?Type pravastatin 20 mg tablet 20 mg PO HS 01/16/22 10/12/24 History magnesium oxide 400 mg (241.3 mg 400 mg PO DAILY 06/08/22 10/12/24 History magnesium) tablet mirabegron 25 mg tablet,extended 25 mg PO DAILY 30 days #30 tabs 06/13/22 10/12/24 Rx release 24 hr (Myrbetriq) acetaminophen 500 mg tablet 500 mg PO TID PRN Pain 09/24/22 10/12/24 History diltiazem HCl 120 mg 120 mg PO DAILY 10/24/22 10/12/24 History capsule,extended release 24 hr flecainide 100 mg tablet 100 mg PO Q12HR #30 tabs 11/05/22 10/12/24 Rx rivaroxaban 15 mg tablet (Xarelto) 15 mg PO 1700 #30 tabs 11/05/22 10/12/24 Rx ELIDIA on 2L oxygen #1 ea 03/21/23 10/12/24 Rx levalbuterol HCl 1.25 mg/3 mL 1.25 mg (3 mL) inhalation Q4H #90 01/01/24 10/12/24 Rx solution for nebulization mL levalbuterol tartrate 45 See Rx Instructions .Route 05/28/24 10/12/24 Rx mcg/actuation aerosol inhaler .COMPLEX #15 grams azithromycin 250 mg tablet 500 mg (2 x 250 mg) PO 3XW #36 tabs 06/26/24 10/12/24 Rx budesonide 160 mcg-glycopyr 9 2 inh inhalation BID #10.7 grams 09/09/24 10/12/24 Rx mcg-formot 4.8 mcg/actuation HFA inhaler azithromycin 250 mg tablet See Rx Instructions PO .COMPLEX #6 10/08/24 10/12/24 Rx tabs budesonide 160 mcg-glycopyr 9 2 inh inhalation BID 10/12/24 10/12/24 History mcg-formot 4.8 mcg/actuation HFA inhaler (Breztri Inspherionphere) Allergies Allergy/AdvReac Type Severity Reaction Status Date / Time morphine Allergy Unknown ITCHING Verified 10/12/24 17:51 gabapentin Allergy Other Verified 10/12/24 17:51 doxycycline AdvReac Vomiting Verified 10/12/24 17:51 Vital Signs Vital Signs - 24 hr 10/12/24 16:58 10/12/24 17:00 10/12/24 17:10 Temperature 97.9 F Pulse Rate 119 H 100 Respiratory Rate 23 H 28 H Blood Pressure 179/79 H Pulse Oximetry 77 L 95 98 Oxygen Delivery Nasal Cannula Nasal Cannula BiPAP Oxygen Flow Rate 3 6 10/12/24 17:20 10/12/24 17:31 10/12/24 17:32 Temperature Pulse Rate 101 H 100 Respiratory Rate 30 H 35 H Blood Pressure 119/79 Pulse Oximetry 98 Oxygen Delivery BiPAP Oxygen Flow Rate 10/12/24 18:20 10/12/24 18:54 10/12/24 19:33 Temperature Pulse Rate 91 95 95 Respiratory Rate 20 16 25 H Blood Pressure 133/66 Pulse Oximetry 97 97 96 Oxygen Delivery BiPAP BiPAP Oxygen Flow Rate 10/12/24 19:48 10/12/24 20:00 10/12/24 20:01 Temperature Pulse Rate 93 94 94 Respiratory Rate 23 H 20 22 H Blood Pressure 132/68 Pulse Oximetry 98 97 97 Oxygen Delivery Oxygen Flow Rate 10/12/24 20:15 10/12/24 20:30 10/12/24 20:31 Temperature Pulse Rate 90 92 89 Respiratory Rate 23 H 26 H 23 H Blood Pressure 121/66 Pulse Oximetry 97 95 95 Oxygen Delivery Oxygen Flow Rate 10/12/24 20:38 10/12/24 20:45 10/12/24 21:34 Temperature Pulse Rate 92 93 89 Respiratory Rate 24 H 24 H 20 Blood Pressure 121/66 Pulse Oximetry 94 96 95 Oxygen Delivery Oxygen Flow Rate 10/12/24 21:45 10/12/24 22:13 10/12/24 22:27 Temperature 97.5 F L Pulse Rate 87 82 89 Respiratory Rate 24 H 24 H 20 Blood Pressure 119/68 130/66 Pulse Oximetry 95 95 95 Oxygen Delivery Oxygen Flow Rate 10/12/24 22:30 Temperature Pulse Rate 90 Respiratory Rate 27 H Blood Pressure Pulse Oximetry 96 Oxygen Delivery BiPAP Oxygen Flow Rate Exam Const: General: comfortable and no acute distress HENMT: Mouth: Yes dry mucous membranes Eyes: Pupils: Equal, round and reactive pupils present Neck: Neck: supple Resp: Other: Decreased breath sounds diffusely Cardio: Rate: regular rate Rhythm: regular rhythm GI: GI Palp: Yes Soft to palpation and No Tenderness to palpation present (GI) Extrem: General: no edema H&P: Results Labs Labs: Short CBC 10/12/24 Range/Units 17:26 WBC 14.4 H (4.5-10.0) K/mm3 Hgb 15.4 H D (12.0-15.0) g/dL Hct 49.1 H (37.0-47.0) % Plt Count 261 (150-375) k/mm3 BMP 10/12/24 17:26 Sodium 141 Potassium 4.4 Chloride 98 Carbon Dioxide 21 L BUN 25 H Creatinine 1.28 H Glucose 112 H Calcium 10.5 H Cardiac Enzymes 10/12/24 10/12/24 Range/Units 17:26 20:30 Troponin I 0.012 0.021 D (0.000-0.034) ng/mL Liver Function 10/12/24 Range/Units 17:26 Total Bilirubin 1.2 (0.2-1.3) mg/dL AST 33 (14-36) U/L ALT 20 (6-35) U/L Alkaline Phosphatase 119 (38-126) U/L Albumin 4.5 (3.5-5.1) g/dL Assessment and Plan Assessment and plan (1) Lactic acidosis: Code(s): E87.20 - Acidosis, unspecified Status: Acute (2) Sepsis: Code(s): A41.9 - Sepsis, unspecified organism Status: Acute (3) Acute on chronic respiratory failure with hypoxia and hypercapnia: Code(s): J96.21 - Acute and chronic respiratory failure with hypoxia; J96.22 - Acute and chronic respiratory failure with hypercapnia Status: Acute (4) Respiratory syncytial virus (RSV): Qualifiers: RSV infection type: unspecified Qualified Code(s): B33.8 - Other specified viral diseases Code(s): B33.8 - Other specified viral diseases Status: Acute Plan This is a 74-year-old female with a past medical history prior tobacco abuse, COPD and chronic respiratory failure on 3 L nasal cannula continuously, atrial fibrillation on Xarelto, hypertension, hypercholesterolemia, polycythemia secondary to hypoxia, pulmonary nodule. She is accompanied by her who she lives with and her daughter. The patient quit smoking 2 years prior and has not been hospitalized since then either. She has been in her normal state of health and does not frequently use her inhalers or nebulizers. In the past 2 days she has used them multiple times due to shortness of breath and a cough productive of green/whitfield sputum. She denies chest pain. On 10/11/2024 the patient presents to [place] ER due to severe difficulty breathing. ER nurse practitioner note patient was tripoding on arrival. Tachypnea with respiratory rate 24-27. Vitals otherwise stable. WBC 14.4, hemoglobin 15.4, ABG demonstrating pH 7.264, pCO2 50.9, PO2 105.2 on BiPAP, bicarb 22.5. BUN 25, serum creatinine 1.28, lactic acid 2.8, RSV PCR positive. The patient was given vancomycin ceftriaxone and azithromycin, Solu-Medrol 125 mg IV push x1, 2 L normal saline bolus, breathing treatments and placed on BiPAP. Her symptomatology improved greatly. ----- Acute on chronic respiratory failure with hypoxia and hypercapnia COPD exacerbation RSV infection Suspected bacterial pneumonia Dehydration Severe sepsis without shock as evidence by lactic acidosis with end-organ damage as evidence by acute hypoxic respiratory failure and acute kidney injury Acute kidney injury Paroxysmal atrial fibrillation on Xarelto Chronic hypertension ----- Patient has improved. Continue BiPAP for now, attempt to wean in the morning. Check ABG as well in the morning. Continue with Solu-Medrol 40 mg IV q.6 hours, nebulizer treatments, ceftriaxone and azithromycin. MRSA nares negative, discontinue vancomycin Blood cultures pending. Continue with normal saline at 75 cc/hour. Lactic acidosis has resolved status post fluid resuscitation. Trend renal function status post fluid resuscitation. Currently normal sinus rhythm. Continue telemetry. 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 Patient wishes to be full code. Home medications will be restarted as appropriate if indicated. Hospitalist MIPS Advance Care Plan I have confirmed that the patient's Advanced Care Plan is present, code status is documented, or surrogate decision maker is listed in patient medical record.: Yes Medication Reconciliation I have utilized all available resources to obtain, update and review the patients current medications (includes all prescriptions, OTC, herbals, cannabis, and nutritional supplements).: Yes
--- NOTE | 2024-10-12 23:51 | ECG_ITS ---
Test Date: 2024-10-12 17:02:52 Measurements Intervals [place] Rate: 107 P: 0 [place]: 0 QRS: 222 QRSD: 173 T: 64 QT: 395 QTc: 528 Interpretive Statements ATRIAL FLUTTER/TACHYCARDIA WITH RAPID VENTRICULAR RESPONSE RIGHT AXIS DEVIATION LEFT BUNDLE BRANCH BLOCK PROLONGED QT INTERVAL BASELINE ARTIFACT- I, II, III, AVR, AVL, AVF, V1-V2, V6 ABNORMAL ECG No previous ECG available for comparison Electronically Signed On 10-13-2024 08:03:43 ESOL TEACHER by Robby Mcgee D.O.
[2024-10-13] VITALS (27 sets, daily range): BP systolic 100–156; BP diastolic 51–79; PULSE 80–111; RESP 20–27; TEMP 36.3–37; O2SAT 97–100
[2024-10-13] MEDS: SODIUM CHLORIDE 0.9% IV 1,000 ML 75 ML IV CONT ×2 (00:34→14:10)
[2024-10-13] MEDS: PRAVASTATIN SODIUM 20 MG TABLET PO ×2 (00:34→21:06)
[2024-10-13] MEDS: methylPREDNISolone SOD SUCC 40 MG VIAL IV PUSH ×4 (00:35→17:31)
[2024-10-13] MEDS: RIVAROXABAN 15 MG TABLET PO ×2 (00:35→17:31)
--- NOTE | 2024-10-13 01:04 | ADMGEN ---
This patient, Sofi Zeng, was admitted to IMU Room 213-01on 10/12/24 at 2225. Patient/family oriented to hospital policies and general routines including ID bracelet, bed and alarms, visiting hours, pain management, procedures, bathroom and other care routines, personal items, smoking policy, room service/diet, and visiting hours. Information on how to activate the Rapid Response Team has been discussed. Patient/Family are encouraged to report perceived risks to care and to ask questions if they do not understand what they are told or what they should do.
[2024-10-13 04:35] LABS: Basophils Percent Auto 0.1 % (0.2-1.2); Hematocrit 37.6 % (37.0-47.0); Hemoglobin 11.9 g/dL (12.0-15.0); Immature Granulocyte Absolute 0.02 K/mm3 (0.00-0.031); Immature Granulocyte Percent A 0.3 % (0-0.5); Lymphocytes Absolute Auto 0.46 K/mm3 (0.9-3.2); Lymphocytes Percent Auto 5.9 % (18.3-44.2); Mean Corpuscular HGB Conc 31.6 g/dl (32-36); Mean Corpuscular Hemoglobin 31.2 pg (26-34); Mean Corpuscular Volume 98.4 fl (80-100); Mean Platelet Volume 10.6 fl (7.4-10.4); Monocytes Absolute Auto 0.2 K/mm3 (0.1-0.6); Monocytes Percent Auto 2.7 % (2.6-8.5); Neutrophils Absolute Auto 7.1 K/mm3 (1.3-6.7); Platelet Count Result 168 k/mm3 (150-375); Red Blood Count 3.82 M/mm3 (4.2-5.4); Red Cell Distribution Width 12.9 % (11.5-14.5); White Blood Count 7.8 K/mm3 (4.5-10.0)
--- NOTE | 2024-10-13 05:00 | ECG_ITS ---
Test Date: 2024-10-13 07:40:21 Measurements Intervals [place] Rate: 105 P: 218 [place]: 217 QRS: 236 QRSD: 122 T: 64 QT: 371 QTc: 492 Interpretive Statements ATRIAL FLUTTER/TACHYCARDIA WITH RAPID VENTRICULAR RESPONSE RIGHT AXIS DEVIATION INTRAVENTRICULAR CONDUCTION DELAY POOR R WAVE PROGRESSION BASELINE ARTIFACT- I, II, AVR, AVL, AVF, V1 ABNORMAL ECG Compared to ECG 10/13/2024 02:34:31 HEART RATE HAS INCREASED Electronically Signed On 10-13-2024 08:13:44 AEROGRAPHER by Robby Mcgee D.O.
[2024-10-13 05:03] LABS: Anion Gap 13 mmol/L (4-12); Blood Urea Nitrogen 24 mg/dL (7-17); Calcium 8.8 mg/dL (8.4-10.2); Carbon Dioxide 19 mmol/L (22-30); Chloride 110 mmol/L (98-107); Estimated CRCL calculation 33 ml/min; Estimated Glomerular Filt Rate 57; Glucose 121 mg/dL (65-110); Magnesium 2.2 mg/dL (1.6-2.3); Platelet Estimate Adequate (Adequate); Potassium 4.3 mmol/L (3.4-5.0); Sodium 142 mmol/L (137-145)
[2024-10-13 05:04] LABS: Anisocytosis 1+; Burr Cells 2+; Schistocytes None Seen
[2024-10-13 05:15] LABS: Procalcitonin 0.3 ng/mL
[2024-10-13 05:27] LABS: Alveolar/Arterial O2 Gradient 45.3 mmHg; Carboxyhemoglobin 0.9 % THb (0-2.0); Fractional Inspired Oxygen 25 %; HCO3 ABG 18.6 mEq/l (22.0-26.0); Methemoglobin ABG 0.2 %THb (0-1.5); Oxygen Content ABG 18.4 %vol (16.0-22.0); Oxygen Saturation ABG 94.8 % (95.0-100.0); Oxyhemoglobin 94.5 % THb (90.0-100.0); PCO2 ABG 41.8 mmHg (35.0-45.0); PO2 ABG 83.3 mmHg (80.0-100.0); PO2 FiO2 Ratio Arterial Blood 3.33 %; Reduced Hemoglobin 4.4 %THb (0-5.0); Total Hemoglobin 13.8 g/dL (12.0-18.0)
[2024-10-13 05:28] LABS: Device NON-INVASIVE VENT; Modified Allen's Test Pass; Site Drawn LEFT RADIAL; pH ABG 7.266 (7.350-7.450)
[2024-10-13 05:29] LABS: Non-Invasive Expiratory Pressure 6 CMH2O; Non-Invasive Inspiratory Pressure 12 CMH2O; Non-Invasive Vent Rate 4 /MIN
[2024-10-13] MEDS: IPRATROPIUM BR 0.02% INH SOLN 0.5 MG/2.5 ML VIAL INHALATION ×3 (06:00→21:20)
[2024-10-13] MEDS: LEVALBUTEROL NEB 1.25 MG/3 ML INHALATION (06:00)
[2024-10-13 06:19] LABS: Add Urine Microscopic? YES; Appearance Urine Clear (Clear); Bacteria Urine None Seen /hpf; Bilirubin Urine Negative (Negative); Blood Urine 2+ (Negative); Color Urine Yellow (Yellow); Glucose Urine UA Negative (Negative); Ketones Urine 2+ mg/dL (Negative); Leukocyte Esterase Ur Negative LEU/UL (Negative); Nitrate Urine Negative (Negative); Non Pathogenic Casts 0-2; Protein Urine Negative (Negative); RBC Urine 51-100 /hpf (0-2); Specific Grav Ur > 1.045 (1.001-1.035); Squamous Epithelial Cell Urine None Seen /hpf (Few); Urobilinogen Urine 0.2 mg/dL (<2.0); WBC Urine 0-5 /hpf (0-3)
--- NOTE | 2024-10-13 09:24 | P.PNIM_ITS ---
Progress Note: A&P Assessment and Plan (1) Lactic acidosis: Code(s): E87.20 - Acidosis, unspecified Status: Acute (2) Sepsis: Code(s): A41.9 - Sepsis, unspecified organism Status: Acute (3) Acute on chronic respiratory failure with hypoxia and hypercapnia: Code(s): J96.21 - Acute and chronic respiratory failure with hypoxia; J96.22 - Acute and chronic respiratory failure with hypercapnia Status: Acute (4) Respiratory syncytial virus (RSV): Qualifiers: RSV infection type: unspecified Qualified Code(s): B33.8 - Other specified viral diseases Code(s): B33.8 - Other specified viral diseases Status: Acute Plan This is a 74-year-old female with a past medical history prior tobacco abuse, COPD and chronic respiratory failure on 3 L nasal cannula continuously, atrial fibrillation on Xarelto, hypertension, hypercholesterolemia, polycythemia secondary to hypoxia, pulmonary nodule. She is accompanied by her who she lives with and her daughter. The patient quit smoking 2 years prior and has not been hospitalized since then either. She has been in her normal state of health and does not frequently use her inhalers or nebulizers. In the past 2 days she has used them multiple times due to shortness of breath and a cough productive of green/whitfiedl sputum. She denies chest pain. On 10/11/2024 the patient presents to [place] [facility] due to severe difficulty breathing. ER nurse practitioner note patient was tripoding on arrival. Tachypnea with respiratory rate 24-27. Vitals otherwise stable. WBC 14.4, hemoglobin 15.4, . Acute on chronic respiratory failure with hypoxia and hypercapnia Patient has chronic respiratory failure Upon arrival in the ED, patient has worsening O2 desaturation, ABG demonstrating pH 7.264, pCO2 50.9, PO2 105.2 on BiPAP, bicarb 22.5 patient was placed on BiPAP COPD exacerbation RSV infection. Suspected bacterial pneumonia on vancomycin ceftriaxone and azithromycin, Solu-Medrol 125 mg IV push x1, 2 L normal saline bolus, Start DuoNeb scheduled, albuterol nebulizer. Acute renal failure due to Dehydration and sepsis BUN 25, serum creatinine 1.28, baseline creatinine 0.7 Received fluid resuscitation Kidney function improving Continue normal saline 75 mL/hour Severe sepsis without shock lactic acidosis with end-organ damage, acute hypoxic respiratory failure and acute kidney injury Paroxysmal atrial fibrillation on Xarelto, Cardizem 120 mg daily p.o. And flecainide 100 mg b.i.d. p.o. 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 Patient wishes to be full code. Home medications will be restarted as appropriate if indicated. Subjective Date/time seen: 10/13/24 09:24 Interval history: I saw examined patient today. Patient still has shortness breath, cough with scant phlegm. Patient feels tired, dyspnea is improving. Patient denies abdomen pain nausea vomiting diarrhea Exam Narrative: GENERAL: Ill-appearing in no acute distress. Well-nourished. - EYES: EOMI. Anicteric. - HENT: Moist mucous membranes. - LUNGS: Distant breath sound bilateral , scattered wheezing, coarse breath sound bilateral base, - CARDIOVASCULAR: Regular rate and rhyth m. No murmur. No JVD. - ABDOMEN: Soft, non-tender and non-dist ended. No palpable masses. - EXTREMITIES: No edema. Peripheral puls es 2+. Non-tender. - NEUROLOGIC: No focal neurological defi cits. CN II-XII grossly intact. General weakness - PSYCHIATRIC: Awake, Alert and oriented x 3. Appropriate mood and affect. - SKIN: No rashes or lesions. Warm. - LYMPH: No cervical lymphadenopathy. Objective Data Vital Signs Vital Signs: Vital Signs - 24 hr 10/12/24 16:58 10/12/24 17:00 10/12/24 17:10 Temperature 97.9 F Pulse Rate 119 H 100 Respiratory Rate 23 H 28 H Blood Pressure 179/79 H Pulse Oximetry 77 L 95 98 Oxygen Delivery Nasal Cannula Nasal Cannula BiPAP Oxygen Flow Rate 3 6 Fraction of Inspired Oxygen 10/12/24 17:20 10/12/24 17:31 10/12/24 17:32 Temperature Pulse Rate 101 H 100 Respiratory Rate 30 H 35 H Blood Pressure 119/79 Pulse Oximetry 98 Oxygen Delivery BiPAP Oxygen Flow Rate Fraction of Inspired Oxygen 10/12/24 18:20 10/12/24 18:54 10/12/24 19:33 Temperature Pulse Rate 91 95 95 Respiratory Rate 20 16 25 H Blood Pressure 133/66 Pulse Oximetry 97 97 96 Oxygen Delivery BiPAP BiPAP Oxygen Flow Rate Fraction of Inspired Oxygen 10/12/24 19:48 10/12/24 20:00 10/12/24 20:01 Temperature Pulse Rate 93 94 94 Respiratory Rate 23 H 20 22 H Blood Pressure 132/68 Pulse Oximetry 98 97 97 Oxygen Delivery Oxygen Flow Rate Fraction of Inspired Oxygen 10/12/24 20:15 10/12/24 20:30 10/12/24 20:31 Temperature Pulse Rate 90 92 89 Respiratory Rate 23 H 26 H 23 H Blood Pressure 121/66 Pulse Oximetry 97 95 95 Oxygen Delivery Oxygen Flow Rate Fraction of Inspired Oxygen 10/12/24 20:38 10/12/24 20:45 10/12/24 21:34 Temperature Pulse Rate 92 93 89 Respiratory Rate 24 H 24 H 20 Blood Pressure 121/66 Pulse Oximetry 94 96 95 Oxygen Delivery Oxygen Flow Rate Fraction of Inspired Oxygen 10/12/24 21:45 10/12/24 22:13 10/12/24 22:27 Temperature 97.5 F L Pulse Rate 87 82 89 Respiratory Rate 24 H 24 H 20 Blood Pressure 119/68 130/66 Pulse Oximetry 95 95 95 Oxygen Delivery Oxygen Flow Rate Fraction of Inspired Oxygen 10/12/24 22:30 10/13/24 00:00 10/13/24 00:09 Temperature 97.6 F Pulse Rate 90 82 80 Respiratory Rate 27 H 26 H Blood Pressure 100/52 L Pulse Oximetry 96 99 Oxygen Delivery BiPAP Oxygen Flow Rate Fraction of Inspired Oxygen 10/13/24 00:35 10/13/24 00:50 10/13/24 02:00 Temperature Pulse Rate 83 85 Respiratory Rate 27 H Blood Pressure Pulse Oximetry 99 Oxygen Delivery BiPAP BiPAP Oxygen Flow Rate Fraction of Inspired Oxygen 10/13/24 04:00 10/13/24 04:10 10/13/24 04:24 Temperature 98.6 F Pulse Rate 84 89 Respiratory Rate 22 H Blood Pressure 126/63 Pulse Oximetry 98 97 Oxygen Delivery BiPAP Oxygen Flow Rate Fraction of Inspired Oxygen 10/13/24 05:59 10/13/24 06:00 10/13/24 06:00 Temperature Pulse Rate 83 93 103 H Respiratory Rate 27 H 20 Blood Pressure Pulse Oximetry Oxygen Delivery BiPAP Oxygen Flow Rate Fraction of Inspired Oxygen 10/13/24 08:29 Temperature 97.4 F L Pulse Rate 105 H Respiratory Rate 27 H Blood Pressure 154/79 H Pulse Oximetry 98 Oxygen Delivery Oxygen Flow Rate Fraction of Inspired Oxygen Intake/Output Intake/Output: Intake & Output 10/10/24 10/11/24 10/12/24 10/13/24 23:59 23:59 23:59 23:59 Intake Total 1800 Output Total 100 Balance 1800 -100 Meds/Results Medications: Active Medications Generic Name Dose Route Start Last Admin Trade Name Freq PRN Reason Stop Dose Admin Acetaminophen 650 mg 10/12/24 20:30 Acetaminophen 325 Mg Tablet PO Q4H PRN Mild Pain (1-3) or Fever Dextrose 12.5 gm 10/12/24 20:30 Dextrose 50% 25 Gm/50 Ml Syringe IV PUSH PRN PRN Hypoglycemia Protocol Diltiazem HCl 120 mg 10/13/24 09:00 Diltiazem Hcl Cd 120 Mg Cap.24hr PO DAILY ANIYA Fluticasone/Umeclidinium/Vilanterol 1 puff 10/13/24 08:00 Fluticasone/Umeclidin/Vilanter 100-62.5-25 Mcg Ellipta INHALATION DAILYRT ANIYA Glucose 15 gm 10/12/24 20:30 Glucose Oral Gel 15 Gm Of Glucse In 37.5 Gm Tube PO PRN PRN Hypoglycemia Protocol Ceftriaxone Sodium 1 gm in 50 mls @ 100 mls/hr 10/13/24 18:00 Rocephin 1 Gm/Ns 50 Ml IVPB Q24H ANIYA Sodium Chloride 1,000 mls @ 75 mls/hr 10/12/24 20:30 10/13/24 00:34 Normal Saline Iv IV CONT 75 mls/hr .[id number] ANIYA Administration Dextrose 1,000 mls @ 100 mls/hr 10/12/24 20:30 Dextrose 5% 1,000 Ml IVPB PRN PRN Hypoglycemia Protocol Doxycycline Hyclate 100 mg in 100 mls @ 100 mls/hr 10/13/24 21:00 Vibramycin 100 Mg/Ns 100 Ml IVPB Q12H ANIYA Ipratropium [place] 0.5 mg 10/13/24 02:00 Ipratropium Br 0.02% Inh Soln 0.5 Mg/2.5 Ml Vial INHALATION Q6HRT ANIYA Ipratropium [place] 0.5 mg 10/13/24 05:46 10/13/24 06:00 Ipratropium Br 0.02% Inh Soln 0.5 Mg/2.5 Ml Vial INHALATION 0.5 mg Q6HRT PRN Administration Shortness Of Breath Levalbuterol HCl 0.63 mg 10/13/24 02:00 Levalbuterol Neb 1.25 Mg/3 Ml INHALATION Q6HRT [facility] Levalbuterol HCl 1.25 mg 10/13/24 05:46 10/13/24 06:00 Levalbuterol Neb 1.25 Mg/3 Ml INHALATION 1.25 mg Q6HRT PRN Administration Shortness Of Breath Or Wheezing Methylprednisolone Sodium Succinate 40 mg 10/12/24 23:25 10/13/24 05:55 Methylprednisolone Sod Succ 40 Mg Vial IV PUSH 40 mg Q6HR ANIYA Administration Mirabegron 25 mg 10/13/24 09:00 Mirabegron 25 Mg Er Tablet PO DAILY ANIYA Pravastatin Sodium 20 mg 10/12/24 23:40 10/13/24 00:34 Pravastatin Sodium 20 Mg Tablet PO 20 mg HS ANIYA Administration Rivaroxaban 15 mg 10/12/24 23:40 10/13/24 00:35 Rivaroxaban 15 Mg Tablet PO 15 mg 1700 ANIYA Administration Radiology Results: ITS Impressions Chest X-Ray 10/12/24 17:55 IMPRESSION: No acute cardiopulmonary process. Chest CT 10/12/24 19:30 IMPRESSION: Scattered small, likely infectious/inflammatory foci, overlying a background of severe emphysematous change and largely stable areas of parenchymal scarring. Mild esophagitis/gastritis. Hepatic steatosis. Labs Labs: Laboratory Results - last 24 hr 10/12/24 10/12/24 10/12/24 17:26 17:59 18:34 WBC 14.4 H RBC 5.04 Hgb 15.4 H D Hct 49.1 H MCV 97.4 MCH 30.6 MCHC 31.4 L RDW 12.7 Plt Count 261 MPV 11.1 H Immature Gran % (Auto) 0.3 Neut % (Auto) 75.6 H Lymph % (Auto) 11.4 L Fisher % (Auto) 12.1 H Eos % (Auto) 0.0 Baso % (Auto) 0.6 Lymph # (Auto) 1.65 Fisher # (Auto) 1.8 H Eos # (Auto) 0.0 Baso # (Auto) 0.1 Abs Immat Gran (auto) 0.04 H Absolute Neuts (auto) 10.9 H Absolute Nucleated RBC 0.000 Nucleated RBC % 0.0 Platelet Estimate Anisocytosis Otoniel Cells Schistocytes PT 18.2 H INR 1.5 APTT 33.3 Puncture Site Right radial ABG pH 7.264 L* ABG pCO2 50.9 H ABG pO2 105.2 H ABG PO2/FiO2 Ratio 3.29 ABG HCO3 22.5 ABG O2 Saturation 97.0 ABG O2 Content 19.6 ABG Base Excess -4.9 A-a Gradient 63.4 Oxyhemoglobin 96.4 Carboxyhemoglobin 1.4 Methemoglobin 0.3 Reduced Hemoglobin 1.9 Total Hemoglobin 14.4 O2 Delivery Device Bipap O2 Liters/Min Not Reportable Vent Rate FiO2 32 Expiratory Pressure 6 Inspiratory Pressure 12 Sodium 141 Potassium 4.4 Chloride 98 Carbon Dioxide 21 L Anion Gap 22 H BUN 25 H Creatinine 1.28 H Estim Creat Clear Calc 26 Estimated GFR 41 L Glucose 112 H Lactic Acid 2.8 H Calcium 10.5 H Magnesium 2.4 H Total Bilirubin 1.2 AST 33 ALT 20 Alkaline Phosphatase 119 Troponin I 0.012 NT-Pro-B Natriuret Pep 743 H Total Protein 9.0 H Albumin 4.5 Procalcitonin Urine Color Urine Appearance Urine pH Ur Specific Tracy Urine Protein Urine Glucose (UA) Urine Ketones Ur Blood (Man) Urine Nitrate Urine Bilirubin Urine Urobilinogen Ur Leukocyte Esterase Urine RBC Urine WBC Ur Squamous Epith Cells Urine Bacteria Urine Casts Nasal MRSA (PCR) Not detected Influenza A (RT-PCR) Negative Influenza B (RT-PCR) Negative RSV (RT-PCR) Positive A SARS-CoV-2 RNA (RT-PCR) Negative 10/12/24 10/12/24 10/12/24 20:30 21:08 23:04 WBC RBC Hgb Hct MCV MCH MCHC RDW Plt Count MPV Immature Gran % (Auto) Neut % (Auto) Lymph % (Auto) Fisher % (Auto) Eos % (Auto) Baso % (Auto) Lymph # (Auto) Fisher # (Auto) Eos # (Auto) Baso # (Auto) Abs Immat Gran (auto) Absolute Neuts (auto) Absolute Nucleated RBC Nucleated RBC % Platelet Estimate Anisocytosis [place] Cells Schistocytes PT INR APTT Puncture Site ABG pH ABG pCO2 ABG pO2 ABG PO2/FiO2 Ratio ABG HCO3 ABG O2 Saturation ABG O2 Content ABG Base Excess A-a Gradient Oxyhemoglobin Carboxyhemoglobin Methemoglobin Reduced Hemoglobin Total Hemoglobin O2 Delivery Device O2 Liters/Min Vent Rate FiO2 Expiratory Pressure Inspiratory Pressure Sodium Potassium Chloride Carbon Dioxide Anion Gap BUN Creatinine Estim Creat Clear Calc Estimated GFR Glucose Lactic Acid 1.0 Calcium Magnesium Total Bilirubin AST ALT Alkaline Phosphatase Troponin I 0.021 D 0.020 NT-Pro-B Natriuret Pep Total Protein Albumin Procalcitonin Urine Color Urine Appearance Urine pH Ur Specific Tracy Urine Protein Urine Glucose (UA) Urine Ketones Ur Blood (Man) Urine Nitrate Urine Bilirubin Urine Urobilinogen Ur Leukocyte Esterase Urine RBC Urine WBC Ur Squamous Epith Cells Urine Bacteria Urine Casts Nasal MRSA (PCR) Influenza A (RT-PCR) Influenza B (RT-PCR) RSV (RT-PCR) SARS-CoV-2 RNA (RT-PCR) 10/13/24 10/13/24 10/13/24 04:30 05:10 05:54 WBC 7.8 RBC 3.82 L Hgb 11.9 L D Hct 37.6 MCV 98.4 MCH 31.2 MCHC 31.6 L RDW 12.9 Plt Count 168 MPV 10.6 H Immature Gran % (Auto) 0.3 Neut % (Auto) 91.0 H Lymph % (Auto) 5.9 L Fisher % (Auto) 2.7 Eos % (Auto) 0.0 Baso % (Auto) 0.1 L Lymph # (Auto) 0.46 L Fisher # (Auto) 0.2 Eos # (Auto) 0.0 Baso # (Auto) 0.0 Abs Immat Gran (auto) 0.02 Absolute Neuts (auto) 7.1 H Absolute Nucleated RBC 0.000 Nucleated RBC % 0.0 Platelet Estimate Adequate Anisocytosis 1+ Otoniel Cells 2+ Schistocytes None seen PT INR APTT Puncture Site Left radial ABG pH 7.266 L* ABG pCO2 41.8 ABG pO2 83.3 ABG PO2/FiO2 Ratio 3.33 ABG HCO3 18.6 L ABG O2 Saturation 94.8 L ABG O2 Content 18.4 ABG Base Excess -8.0 A-a Gradient 45.3 Oxyhemoglobin 94.5 Carboxyhemoglobin 0.9 Methemoglobin 0.2 Reduced Hemoglobin 4.4 Total Hemoglobin 13.8 O2 Delivery Device Non-invasive vent O2 Liters/Min Not Reportable Vent Rate 4 FiO2 25 Expiratory Pressure 6 Inspiratory Pressure 12 Sodium 142 Potassium 4.3 Chloride 110 H Carbon Dioxide 19 L Anion Gap 13 H BUN 24 H Creatinine 0.95 Estim Creat Clear Calc 33 Estimated GFR 57 L Glucose 121 H Lactic Acid Calcium 8.8 Magnesium 2.2 Total Bilirubin AST ALT Alkaline Phosphatase Troponin I NT-Pro-B Natriuret Pep Total Protein Albumin Procalcitonin 0.3 Urine Color Yellow Urine Appearance Clear Urine pH 6.0 Ur Specific Tracy > 1.045 H Urine Protein Negative Urine Glucose (UA) Negative Urine Ketones 2+ H Ur Blood (Man) 2+ H Urine Nitrate Negative Urine Bilirubin Negative Urine Urobilinogen 0.2 Ur Leukocyte Esterase Negative Urine RBC 51-100 H Urine WBC 0-5 Ur Squamous Epith Cells None seen Urine Bacteria None seen Urine Casts 0-2 Nasal MRSA (PCR) Influenza A (RT-PCR) Influenza B (RT-PCR) RSV (RT-PCR) SARS-CoV-2 RNA (RT-PCR)
[2024-10-13] MEDS: dilTIAZem HCL CD 120 MG CAP.24HR PO (10:06)
[2024-10-13] MEDS: MIRABEGRON 25 MG ER TABLET PO (10:06)
[2024-10-13 11:35] LABS: Alveolar/Arterial O2 Gradient 58.8 mmHg; Base Excess ABG -4.6 mEq/l (+/-2.0); Fractional Inspired Oxygen 30 %; HCO3 ABG 21.3 mEq/l (22.0-26.0); Oxygen Content ABG 18.2 %vol (16.0-22.0); Oxygen Saturation ABG 97.4 % (95.0-100.0); Oxyhemoglobin 97.3 % THb (90.0-100.0); PCO2 ABG 42.3 mmHg (35.0-45.0); PO2 ABG 105.4 mmHg (80.0-100.0); PO2 FiO2 Ratio Arterial Blood 3.51 %; Total Hemoglobin 13.2 g/dL (12.0-18.0)
[2024-10-13 11:39] LABS: Modified Allen's Test Pass; Site Drawn LEFT RADIAL
[2024-10-13 11:40] LABS: Device BIPAP; Expiratory Pressure 6 cmH2O; Inspiratory Pressure 12 cmH2O
[2024-10-13] MEDS: LEVALBUTEROL NEB 1.25 MG/3 ML 0.63 MG INHALATION ×2 (13:52→21:20)
--- NOTE | 2024-10-13 17:00 | ECG_ITS ---
Test Date: 2024-10-13 02:34:31 Measurements Intervals Foley Rate: 85 P: 0 NE: 0 QRS: -78 QRSD: 148 T: 90 QT: 511 QTc: 611 Interpretive Statements ATRIAL FLUTTER/TACHYCARDIA WITH NORMAL VENTRICULAR RESPONSE LEFT BUNDLE BRANCH BLOCK BASELINE ARTIFACT- I, II, AVR, AVL, AVF, V1-V2 ABNORMAL ECG Compared to ECG 10/12/2024 20:33:02 NO SIGNIFICANT CHANGE Electronically Signed On 10-13-2024 08:08:55 [employer] by Robby Mcgee D.O.
[2024-10-13] MEDS: FLECAINIDE ACETATE 100 MG TABLET PO (17:44)
[2024-10-13] MEDS: guaiFENesin 12 HR 600 MG TABCR 1200 MG PO (21:06)
[2024-10-13] MEDS: ACETAMINOPHEN 325 MG TABLET 650 MG PO (21:08)
[2024-10-13] MEDS: DOXYCYCLINE 100 MG/NS 100 ML 100 MG/100 ML BAG IVPB (22:00)
[2024-10-14] VITALS (30 sets, daily range): BP systolic 134–167; BP diastolic 64–85; PULSE 91–113; RESP 16–32; TEMP 36.2–36.7; O2SAT 95–100; BMI 18.8
[2024-10-14] MEDS: methylPREDNISolone SOD SUCC 40 MG VIAL IV PUSH ×3 (00:53→12:32)
[2024-10-14] MEDS: IPRATROPIUM BR 0.02% INH SOLN 0.5 MG/2.5 ML VIAL INHALATION ×5 (02:12→22:42)
[2024-10-14] MEDS: LEVALBUTEROL NEB 1.25 MG/3 ML 0.63 MG INHALATION ×5 (02:13→22:42)
[2024-10-14] MEDS: SODIUM CHLORIDE 0.9% IV 1,000 ML 75 ML IV CONT (06:23)
[2024-10-14] MEDS: FLECAINIDE ACETATE 100 MG TABLET PO ×2 (10:05→20:33)
[2024-10-14] MEDS: MIRABEGRON 25 MG ER TABLET PO (10:15)
[2024-10-14] MEDS: dilTIAZem HCL CD 120 MG CAP.24HR PO (10:15)
--- NOTE | 2024-10-14 10:20 | PM.IMPN ---
Progress Note: A&P Assessment and Plan (1) Lactic acidosis: Code(s): E87.20 - Acidosis, unspecified Status: Acute (2) Sepsis: Code(s): A41.9 - Sepsis, unspecified organism Status: Acute (3) Acute on chronic respiratory failure with hypoxia and hypercapnia: Code(s): J96.21 - Acute and chronic respiratory failure with hypoxia; J96.22 - Acute and chronic respiratory failure with hypercapnia Status: Acute (4) Respiratory syncytial virus (RSV): Qualifiers: RSV infection type: unspecified Qualified Code(s): B33.8 - Other specified viral diseases Code(s): B33.8 - Other specified viral diseases Status: Acute Plan This is a 74-year-old female with a past medical history prior tobacco abuse, COPD and chronic respiratory failure on 3 L nasal cannula continuously, atrial fibrillation on Xarelto, hypertension, hypercholesterolemia, polycythemia secondary to hypoxia, pulmonary nodule. She is accompanied by her who she lives with and her daughter. The patient quit smoking 2 years prior and has not been hospitalized since then either. She has been in her normal state of health and does not frequently use her inhalers or nebulizers. In the past 2 days she has used them multiple times due to shortness of breath and a cough productive of green/whitfield sputum. She denies chest pain. On 10/11/2024 the patient presents to [facility] due to severe difficulty breathing. ER nurse practitioner note patient was tripoding on arrival. Tachypnea with respiratory rate 24-27. Vitals otherwise stable. WBC 14.4, hemoglobin 15.4, . Acute on chronic respiratory failure with hypoxia and hypercapnia Patient has chronic respiratory failure Upon arrival in the ED, patient has worsening O2 desaturation, ABG demonstrating pH 7.264, pCO2 50.9, PO2 105.2 on BiPAP, bicarb 22.5 patient was placed on BiPAP. COPD exacerbation RSV infection. Suspected bacterial pneumonia on vancomycin ceftriaxone and azithromycin, Solu-Medrol 125 mg IV push x1, 2 L normal saline bolus, Start DuoNeb scheduled, albuterol nebulizer. Methylprednisolone 40 mg q.6 hours IV Consult route supervisor for evaluation treatment Acute renal failure due to Dehydration and sepsis BUN 25, serum creatinine 1.28, baseline creatinine 0.7 Received fluid resuscitation Kidney function improving Discontinue normal saline 75 mL/hour Severe sepsis without shock lactic acidosis with end-organ damage, acute hypoxic respiratory failure and acute kidney injury Paroxysmal atrial fibrillation on Xarelto, Cardizem 120 mg daily p.o. And flecainide 100 mg b.i.d. p.o. Follow-up echocardiogram 1. Complete two-dimensional, color flow and Doppler transthoracic echocardiogram is performed. 2. There is normal biventricular size and systolic function. 3. There is no significant valvular disease. Chronic hypertension Stable Restart LOAD TESTER Xarelto. Patient wishes to be full code. Home medications will be restarted as appropriate if indicated. Subjective Date/time seen: 10/14/24 10:20 Interval history: I saw examined patient today. Patient still has shortness breath, cough with scant phlegm. Patient on BiPAP during the day and night. Patient feels improving slowly. Patient denies chest pain abdomen pain nausea vomiting diarrhea Exam Narrative: GENERAL: Ill-appearing in no acute distress. Moderate malnutrition - EYES: EOMI. Anicteric. - HENT: Moist mucous membranes. - LUNGS: Distant breath sound bilateral, scattered wheezing, coarse breath sound bilateral base, - CARDIOVASCULAR: Regular rate and rhythm. No murmur. No JVD. - ABDOMEN: Soft, non-tender and non-distended. No palpable masses. - EXTREMITIES: No edema. Peripheral pulses 2+. Non-tender. - NEUROLOGIC: No focal neurological deficits. CN II-XII grossly intact. General weakness - PSYCHIATRIC: Awake, Alert and oriented x 3. Appropriate mood and affect. - SKIN: No rashes or lesions. Warm. - LYMPH: No cervical lymphadenopathy. Objective Data Vital Signs Vital Signs: Vital Signs - 24 hr 10/13/24 12:00 10/13/24 12:00 10/13/24 12:00 Temperature 98.2 F Pulse Rate 103 H 104 H Respiratory Rate 20 Blood Pressure 156/51 H Pulse Oximetry 100 100 Oxygen Delivery Nasal Cannula Oxygen Flow Rate 2.5 Fraction of Inspired Oxygen 10/13/24 12:10 10/13/24 13:52 10/13/24 14:00 Temperature Pulse Rate 88 111 H Respiratory Rate 20 Blood Pressure Pulse Oximetry 98 Oxygen Delivery Nasal Cannula Oxygen Flow Rate 2.5 Fraction of Inspired Oxygen 10/13/24 16:00 10/13/24 16:00 10/13/24 16:51 Temperature 98.1 F Pulse Rate 110 H 109 H Respiratory Rate 22 H Blood Pressure 145/68 H Pulse Oximetry 100 97 Oxygen Delivery Nasal Cannula Oxygen Flow Rate 2.5 Fraction of Inspired Oxygen 10/13/24 18:00 10/13/24 19:51 10/13/24 20:00 Temperature 98.0 F Pulse Rate 101 H 99 101 H Respiratory Rate 20 20 Blood Pressure 142/63 H Pulse Oximetry 98 98 Oxygen Delivery Nasal Cannula Oxygen Flow Rate 3 Fraction of Inspired Oxygen 10/13/24 20:00 10/13/24 21:21 10/13/24 21:21 Temperature Pulse Rate 101 H 102 H Respiratory Rate 20 Blood Pressure Pulse Oximetry 98 Oxygen Delivery Nasal Cannula Oxygen Flow Rate 3 Fraction of Inspired Oxygen 10/13/24 21:35 10/13/24 21:40 10/13/24 21:59 Temperature Pulse Rate 99 100 108 H Respiratory Rate 20 20 Blood Pressure Pulse Oximetry 98 Oxygen Delivery BiPAP Oxygen Flow Rate Fraction of Inspired Oxygen 10/14/24 00:00 10/14/24 00:00 10/14/24 00:00 Temperature 97.7 F Pulse Rate 91 91 91 Respiratory Rate 16 16 Blood Pressure 136/71 Pulse Oximetry 97 100 Oxygen Delivery BiPAP Oxygen Flow Rate Fraction of Inspired Oxygen 30 10/14/24 02:16 10/14/24 02:17 10/14/24 04:00 Temperature Pulse Rate 94 94 96 Respiratory Rate 24 H 24 H Blood Pressure Pulse Oximetry 99 Oxygen Delivery BiPAP Oxygen Flow Rate Fraction of Inspired Oxygen 10/14/24 04:00 10/14/24 04:00 10/14/24 06:00 Temperature 97.9 F Pulse Rate 96 98 92 Respiratory Rate 24 H 20 24 H Blood Pressure 134/64 Pulse Oximetry 99 99 Oxygen Delivery BiPAP Oxygen Flow Rate Fraction of Inspired Oxygen 30 10/14/24 07:46 10/14/24 08:30 10/14/24 08:30 Temperature 97.2 F L Pulse Rate 98 104 H 104 H Respiratory Rate 22 H 20 20 Blood Pressure 153/72 H Pulse Oximetry 100 99 Oxygen Delivery BiPAP Oxygen Flow Rate Fraction of Inspired Oxygen 10/14/24 08:42 Temperature Pulse Rate 104 H Respiratory Rate 20 Blood Pressure Pulse Oximetry Oxygen Delivery Oxygen Flow Rate Fraction of Inspired Oxygen Intake/Output Intake/Output: Intake & Output 02/07/25 02/08/25 02/09/25 02/10/25 23:59 23:59 23:59 23:59 Intake Total 1800 2130 1612 Output Total 500 500 Balance 1800 1630 1112 Meds/Results Medications: Active Medications Generic Name Dose Route Start Last Admin Trade Name Freq PRN Reason Stop Dose Admin Acetaminophen 650 mg 10/12/24 20:30 10/13/24 21:08 Acetaminophen 325 Mg Tablet PO 650 mg Q4H PRN Administration Mild Pain (1-3) or Fever Dextrose 12.5 gm 10/12/24 20:30 Dextrose 50% 25 Gm/50 Ml Syringe IV PUSH PRN PRN Hypoglycemia Protocol Diltiazem HCl 120 mg 10/13/24 09:00 10/13/24 10:06 Diltiazem Hcl Cd 120 Mg Cap.24hr PO 120 mg DAILY ANIYA Administration Flecainide Acetate 100 mg 10/13/24 17:40 10/13/24 17:44 Flecainide Acetate 100 Mg Tablet PO 100 mg Q12HR ANIYA Administration Fluticasone/Umeclidinium/Vilanterol 1 puff 10/13/24 08:00 10/14/24 08:31 Fluticasone/Umeclidin/Vilanter 100-62.5-25 Mcg Ellipta INHALATION Not Given DAILYRT ANIYA Glucose 15 gm 10/12/24 20:30 Glucose Oral Gel 15 Gm Of Glucse In 37.5 Gm Tube PO PRN PRN Hypoglycemia Protocol Ceftriaxone Sodium 1 gm in 50 mls @ 100 mls/hr 10/13/24 18:00 10/13/24 19:00 Rocephin 1 Gm/Ns 50 Ml IVPB Infused Q24H ANIYA Infusion Sodium Chloride 1,000 mls @ 75 mls/hr 10/12/24 20:30 10/14/24 06:23 Normal Saline Iv IV CONT 75 mls/hr .[id number] ANIYA Administration Dextrose 1,000 mls @ 100 mls/hr 10/12/24 20:30 Dextrose 5% 1,000 Ml IVPB PRN PRN Hypoglycemia Protocol Doxycycline Hyclate 100 mg in 100 mls @ 100 mls/hr 10/13/24 21:00 10/13/24 23:00 Vibramycin 100 Mg/Ns 100 Ml IVPB Infused Q12H ANIYA Infusion Ipratropium [place] 0.5 mg 10/13/24 02:00 10/14/24 08:29 Ipratropium Br 0.02% Inh Soln 0.5 Mg/2.5 Ml Vial INHALATION 0.5 mg Q6HRT ANIYA Administration Ipratropium [place] 0.5 mg 10/13/24 05:46 10/13/24 06:00 Ipratropium Br 0.02% Inh Soln 0.5 Mg/2.5 Ml Vial INHALATION 0.5 mg Q6HRT PRN Administration Shortness Of Breath Levalbuterol HCl 0.63 mg 10/13/24 02:00 10/14/24 08:30 Levalbuterol Neb 1.25 Mg/3 Ml INHALATION 0.63 mg Q6HRT ANIYA Administration Levalbuterol HCl 1.25 mg 10/13/24 05:46 10/13/24 06:00 Levalbuterol Neb 1.25 Mg/3 Ml INHALATION 1.25 mg Q6HRT PRN Administration Shortness Of Breath Or Wheezing Methylprednisolone Sodium Succinate 40 mg 10/12/24 23:25 10/14/24 06:46 Methylprednisolone Sod Succ 40 Mg Vial IV PUSH 40 mg Q6HR ANIYA Administration Mirabegron 25 mg 10/13/24 09:00 10/13/24 10:06 Mirabegron 25 Mg Er Tablet PO 25 mg DAILY ANIYA Administration Perflutren Lipid Microsphere 0 ml 10/13/24 15:22 Perflutren Lipid Microspheres 1.5 Ml Vial Diluted To 10 Ml Total Volume IV PUSH 10/16/24 15:22 ONCE PRN adequate visualization Protocol Pravastatin Sodium 20 mg 10/12/24 23:40 10/13/24 21:06 Pravastatin Sodium 20 Mg Tablet PO 20 mg HS ANIYA Administration Rivaroxaban 15 mg 10/12/24 23:40 10/13/24 17:31 Rivaroxaban 15 Mg Tablet PO 15 mg 1700 ANIYA Administration Radiology Results: ITS Impressions Chest X-Ray 10/12/24 17:55 IMPRESSION: No acute cardiopulmonary process. Chest CT 10/12/24 19:30 IMPRESSION: Scattered small, likely infectious/inflammatory foci, overlying a background of severe emphysematous change and largely stable areas of parenchymal scarring. Mild esophagitis/gastritis. Hepatic steatosis. Labs Labs: Laboratory Results - last 24 hr 10/13/24 11:31 Puncture Site Left radial ABG pH 7.320 L ABG pCO2 42.3 ABG pO2 105.4 H ABG PO2/FiO2 Ratio 3.51 ABG HCO3 21.3 L ABG O2 Saturation 97.4 ABG O2 Content 18.2 ABG Base Excess -4.6 A-a Gradient 58.8 Oxyhemoglobin 97.3 Total Hemoglobin 13.2 O2 Delivery Device Bipap O2 Liters/Min Not Reportable FiO2 30 Expiratory Pressure 6 Inspiratory Pressure 12
[2024-10-14 12:31] LABS: Hematocrit 39.3 % (37.0-47.0); Hemoglobin 12.5 g/dL (12.0-15.0); Mean Corpuscular HGB Conc 31.8 g/dl (32-36); Mean Corpuscular Hemoglobin 31.2 pg (26-34); Mean Platelet Volume 10.8 fl (7.4-10.4); Platelet Count Result 210 k/mm3 (150-375); Red Blood Count 4.01 M/mm3 (4.2-5.4)
[2024-10-14] MEDS: DOXYCYCLINE 100 MG/NS 100 ML 100 MG/100 ML BAG IVPB ×2 (12:32→20:31)
[2024-10-14 12:53] LABS: Anion Gap 14 mmol/L (4-12); Blood Urea Nitrogen 23 mg/dL (7-17); Calcium 9.1 mg/dL (8.4-10.2); Carbon Dioxide 21 mmol/L (22-30); Chloride 111 mmol/L (98-107); Estimated CRCL calculation 38 ml/min; Estimated Glomerular Filt Rate > 60; Glucose 161 mg/dL (65-110); Potassium 3.6 mmol/L (3.4-5.0); Sodium 146 mmol/L (137-145)
--- NOTE | 2024-10-14 15:22 | ECHO_ITS ---
Patient Info Name: Sofi Zeng Age: 74 years : 1950 Gender: Female Ht: 62 in Wt: 102 lbs BSA: 1.42 m2 HR: 92 bpm BP: 134 / 64 mmHg Heart Rhythm: Atrial Fibrillation Technical Quality: Fair Exam Date: 10/14/2024 9:34 AM Exam Location: Echo Lab Patient Status: Inpatient Admit Date: 10/13/2024 Staff Ordering Physician: Yosi Abbasi MD Operations General Agent: Selina Arndt RDCS Attending Provider: Bruna Hathaway MD Exam Type: CA echo doppler color flow Study Info Indications - Afib Complete two-dimensional, color flow and Doppler transthoracic echocardiogram is performed. Summary 1. Complete two-dimensional, color flow and Doppler transthoracic echocardiogram is performed. 2. There is normal biventricular size and systolic function. 3. There is no significant valvular disease. Left Ventricle The left ventricle is normal in size and systolic function. The left ventricular ejection fraction is visually estimated to be 65-70%. Right Ventricle The right ventricle is normal in size and systolic function. Left Atria The left atrium is normal size. Right Atria The right atrium is normal size. Aortic Valve The aortic valve opens well. There is no aortic regurgitation. Pulmonic Valve The pulmonic valve is not well visualized. There is no color Doppler evidence of pulmonic valve regurgitation. Tricuspid Valve The tricuspid valve is normal. There is trace tricuspid regurgitation. Pericardium/Pleural Pericardium is normal in appearance with no evidence for significant pericardial effusion. Inferior Vena Cava Dilated inferior vena cava with >50% collapse upon inspiration consistent with normal right atrial pressure, 8 mmHg. Dilated inferior vena cava with >50% collapse upon inspiration consistent with normal right atrial pressure, 8 mmHg. Aorta The aortic root at the level of the sinus of Valsalva measures 2.7 cm in diameter. Left Ventricular Outflow Tract Name Value Normal LVOT 2D LVOT Diameter 2.0 cm LVOT Doppler LVOT Peak Gradient 4 mmHg LVOT Mean Gradient 2 mmHg LVOT VTI 18 cm LVOT VTI/AV VTI Ratio 0.9 LVOT Stroke Volume 59 ml LVOT CO 5.9 l/min LVOT CI 4.2 l/min/m2 Pulmonic Valve Name Value Normal RVOT Doppler RVOT Peak Gradient 2 mmHg PV Doppler PV Peak Gradient 4 mmHg Mitral Valve Name Value Normal MV Doppler MV Decel Hawkins 1,431 cm/s2 MV PHT 24 ms MV Area (PHT) 9.3 cm2 4.0-5.0 MV Diastolic Function MV E Peak Velocity 116 cm/s MV A Peak Velocity 3 cm/s MV E/A 38.2 MV Decel Time 81 ms MV Annular TDI MV E/e' (Septal) 9.3 <=8.0 MV E/e' (Lateral) 11.4 <=8.0 MV E/e' (Average) 10.4 Tricuspid Valve Name Value Normal TV Regurgitation Doppler TR Peak Velocity 269 cm/s TR Peak Gradient 27 mmHg Estimated PAP/RSVP RA Pressure 8 mmHg <=5 PA Systolic Pressure 37 mmHg <36 RV Systolic Pressure 37 mmHg <36 Aorta Name Value Normal Ascending Aorta Ao Root Diameter (MM) 3.5 cm Ao Root Diam Index (MM) 2.4 cm/m2 Aortic Valve Name Value Normal AV Doppler AV Peak Velocity 120 cm/s AV Peak Gradient 5 mmHg AV Mean Gradient 3 mmHg AV VTI 20 cm AV Area (Cont Eq VTI) 2.9 cm2 >=3.0 AV Area (Cont Eq Byron) 2.9 cm2 AV Regurgitation 2D LVOT Area 3.3 cm2 Ventricles Name Value Normal LV Dimensions 2D/MM IVS Diastolic Thickness (2D) 0.9 cm 0.6-1.0 LVID Diastole (2D) 3.8 cm 3.8-5.2 LVIW Diastolic Thickness (2D) 0.8 cm 0.6-0.9 LVID Systole (2D) 2.5 cm 2.2-3.5 LVOT Diameter 2.0 cm LV Mass (2D Cubed) 95.83 g 67.00-162.00 LV Mass Index (2D Cubed) 68 g/m2 43-95 Relative Wall Thickness (2D) 0.45 LV Fractional Shortening/Ejection Fraction 2D/MM LV Fractional Shortening (2D) 34 % 27-45 LV EF (2D Teicholz) 64 % 54-74 LV Diastolic Volume (4C MOD) 35 ml LV EF (4C MOD) 73 % LV Diastolic Volume (2C MOD) 34 ml LV EF (2C MOD) 84 % LV Diastolic Volume (BP MOD) 34 ml 46-106 LV Diastolic Volume Index (BP MOD) 24 ml/m2 29-61 LV Systolic Volume (BP MOD) 8 ml 14-42 LV Systolic Volume Index (BP MOD) 6 ml/m2 8-24 LV EF (BP MOD) 77 % 54-74 LV Diastolic Length (4C) 6.7 cm LV Systolic Length (4C) 5.7 cm LV Stroke Volume (4C MOD) 26 ml Atria Name Value Normal LA Dimensions LA Dimension (MM) 3.1 cm 2.7-3.8 LA Volume (4C A-L) 21 ml LA Volume (BP A-L) 21 ml RA Dimensions RA Area (4C) 8.0 cm2 <=18.0 Report Signatures
--- NOTE | 2024-10-14 15:38 | P.CONPL_ITS ---
Assessment and Plan Assessment and plan (1) Respiratory syncytial virus (RSV): Qualifiers: RSV infection type: unspecified Qualified Code(s): B33.8 - Other specified viral diseases Code(s): B33.8 - Other specified viral diseases Status: Acute Assessment and Plan: Patient tested positive for RSV 10/12/24. Patient is had worsening work of breathing without hypercarbic respiratory failure on BiPAP. Most recent ABG on BiPAP 12/6 on 10/13/24 was 7.32/42/105. 10/14/2024: The patient says she is better. She was only able to tolerate 10 minutes off the BiPAP to eat lunch. Currently she is on BiPAP rate of 4 breathing 20, pressures 12/6 with tidal volumes 447 and 30% FiO2 with saturations 98%. She said the BiPAP was uncomfortable and I changed her to a noninvasive ventilation with the AVAPS mode rate of 14, tidal volume 450, EPAP 5, minimal inspiratory pressure 6, maximal inspiratory pressure 25, rise of 1 fastest, inspiratory time 1.0, FiO2 28%. She said these settings were more comfortable. Today are white blood cell count is 19.0, creatinine 0.81. Approximately 1 hour later patient had worsening respiratory distress stating that the BiPAP for rate of 4 pressures 12/6 was better for her and she was switched back to this. Plan: Treatment for RSV pneumonia is supportive. Initially did better with AVAPS mode but then requested to go back on straight BiPAP as this was more comfortable for her. Agree with treatment for other possible conditions including COPD exacerbation, bacterial pneumonia, and cardiac conditions. Echocardiogram with normal biventricular size and function. No significant valvular disease, left atrium is normal. The right atrium is normal. RVSP 37%. Discussed with Dr. Abbasi, will follow with you. (2) COPD (chronic obstructive pulmonary disease): Code(s): J44.9 - Chronic obstructive pulmonary disease, unspecified Status: Acute Assessment and Plan: Patient with a history of 47 pack year tobacco use, Alpha 1 anti trypsin genotype MM, PFTs 11/02/2021 with a severe obstructive abnormality, FEV 1 is 0.74 L, 38% predicted, bronchodilator response, air trapping, hyperinflation and a DLCO that was severely decreased when adjusted for alveolar volume, 1st CT scan of the chest in our system from 12/14/2021 with severe panlobular emphysema throughout all lung [place], hypoxic respiratory failure requiring 2 L at rest, with ambulation and with sleep. No evidence of hypercarbic respiratory failure dating back to 01/17/2022 with a blood gas of 7.36/43/64 on room air. Echocardiogram with tricuspid regurgitation peak gradient 42 on 06/11/2022. She developed a multifocal necrotic pneumonia on 08/30/2022 and completed 6 weeks of antibiotics on 10/16/2022. Outpatient exacerbation 10/2023 and 12/2023. 10/24/2022 with CBC with white blood cell count 14.4, eosinophils 0%. 09/24/2022 CBC with white blood cell count 9.6, eosinophils 0.2%=19.2. 10/12/2024: BNP 743. 10/13/24: Procalcitonin 0.3. 10/14/24: Plan: Patient had been on Solu-Medrol 40 mg IV q.6 hours, day 3 of systemic steroids. I will decrease to 20 mg IV q.6. Continue ipratropium and levalbuterol and will increase the frequency to q.4 hours. Discontinue trelegy as patient is on maximal dose beta agonist, muscarinic antagonists and steroids. I will place the patient on guaifenesin 1200 mg p.o. b.i.d. and give her 2 600 mg tablets because she cannot swallow the 1200 mg tablets. Patient currently treated for bacterial pneumonia with ceftriaxone day 3, and azithromycin 1 dose on 10/12/2024 followed by doxycycline now day 2. I will send urine for Legionella, urine for pneumococcal and serum mycoplasma IgM. MRSA swab is negative. weight today is 46.7 with an admission weight of 49 . since admission she is 5.1 L positive. will check BMP on 10/15/2024 History of Present Illness History of Present Illness Consult date: 10/14/24 Chief complaint: Acute on chronic resp failure, RSV, PNA, RADHA Narrative: 10/14/2024: This is a new pulmonary consult for COPD with RSV pneumonia. Patient has a history of GOLD grade 3 group B COPD On home oxygen, atrial fibrillation on Xarelto, hypertension, hyperlipidemia and followed in the [facility] in last seen on 06/26/2024: Regarding her COPD, patient with a history of 47 pack year tobacco use, Alpha 1 anti trypsin genotype MM, PFTs 11/02/2021 with a severe obstructive abnormality, FEV 1 is 0.74 L, 38% predicted, bronchodilator response, air trapping, hyperinflation and a DLCO that was severely decreased when adjusted for alveolar volume, 1st CT scan of the chest in our system from 12/14/2021 with severe panlobular emphysema throughout all lung [place], hypoxic respiratory failure requiring 2 L at rest, with ambulation and with sleep. No evidence of hypercarbic respiratory failure dating back to 01/17/2022 with a blood gas of 7.36/43/64 on room air. Echocardiogram with tricuspid regurgitation peak gradient 42 on 06/11/2022. She developed a multifocal necrotic pneumonia on 08/30/2022 and completed 6 weeks of antibiotics on 10/16/2022. Outpatient exacerbation 10/2023 and 12/2023. 10/24/2022 with CBC with white blood cell count 14.4, eosinophils 0%. 09/24/2022 CBC with white blood cell count 9.6, eosinophils 0.2%=19.2. recently she has been wearing 2.5 L at rest, 2.5 L with activity and 3 L at night. 09/03/2024: Patient called with bronchitis, shortness of breath, productive cough with brown phlegm and was treated with amoxicillin and prednisone. Patient tells me she improved but did not completely get back to her normal. 10/08/2024: Patient called and stated she is having cough, chest congestion, increased phlegm production, sore throat, using Mucinex and this helps her cough up her phlegm. She is having no fever no wheezes. She states this feels like her bronchitis. I will prescribe azithromycin x5 days. 10/12/2024 patient presented to the emergency department with shortness of breath, fevers and respiratory distress. Blood pressure is 179/79, heart rate 119, saturations on 3 L 77%. Placement was started on BiPAP. White blood cell count 7.8, eosinophils 0, creatinine 0.95, BNP 743, COVID, influenza RT PCR negative. RSV RT PCR positive. MRSA swab negative. ABG on BiPAP 7.26/51/106. CT scan of the chest showed severe panlobular emphysema, stable scarring right upper lobe and left upper lobe no pleural effusions and no ground-glass infiltrates. Patient was admitted to the hospital and treated empirically for RSV, pneumonia and COPD exacerbation. 10/13/2024: ABG on BiPAP 12/6 and 30% FiO2 was 7.32/42/105. 10/14/2024: The patient says she is better. She was only able to tolerate 10 minutes off the BiPAP to eat lunch. Currently she is on BiPAP rate of 4 breathing 20, pressures 12/6 with tidal volumes 447 and 30% FiO2 with saturations 98%. She said the BiPAP was uncomfortable and I changed her to a noninvasive ventilation with the AVAPS mode rate of 14, tidal volume 450, EPAP 5, minimal inspiratory pressure 6, maximal inspiratory pressure 25, rise of 1 fastest, inspiratory time 1.0, FiO2 28%. She said these settings were more comfortable. Today are white blood cell count is 19.0, creatinine 0.81. Approximately 1 hour later patient had worsening respiratory distress stating that the BiPAP for rate of 4 pressures 12/6 was better for her and she was switched back to this. ? DATA: 10/14/2024: Echo Summary 1. Complete two-dimensional, color flow and Doppler transthoracic echocardiogram is performed. 2. There is normal biventricular size and systolic function. 3. There is no significant valvular disease. Left Ventricle The left ventricle is normal in size and systolic function. The left ventricular ejection fraction is visually estimated to be 65-70%. Right Ventricle The right ventricle is normal in size and systolic function. Left Atria The left atrium is normal size. Right Atria The right atrium is normal size. RVSP 37 10/12/24: EXAMINATION: CT diagnostic chest w con INDICATION: sob, copd hypoxia, cough COMPARISON: 08/19/2024; x-ray chest 10/12/2024. FINDINGS: CHEST: Thoracic aorta: No significant dilation. No dissection. Moderate atherosclerotic plaque. Lung parenchyma and airways: Biapical pleural scarring. Stable irregular nodular scarring in the bilateral upper lobes and superior segment of the left lower lobe. Scattered smaller areas of scarring peripherally and in the bases. Small foci of tree-in-bud like opacities in the right middle lobe and lingula. Emphysematous change. Calcified left lower lobe granuloma. Patent airways. Thoracic inlet, axillae and chest wall: No thyroid or soft tissue mass. No axillary lymphadenopathy. Mediastinum: No mass or lymphadenopathy. Heart and pericardium: Normal heart size. No pericardial effusion. Coronary artery calcifications: Mild. Pleura: No effusion or mass. Upper abdomen: Mild distal esophageal and gastric wall edema. Diffuse fatty infiltration of the liver. Thoracic bones: No acute osseous finding in the chest. Stable mild compression deformities in the thoracic spine. IMPRESSION: Scattered small, likely infectious/inflammatory foci, overlying a background of severe emphysematous change and largely stable areas of parenchymal scarring. Mild esophagitis/gastritis. Hepatic steatosis. 02/20/2024: EXAMINATION:CT diagnostic chest wo con INDICATION: Solitary pulmonary nodule. COMPARISON: Chest CT 09/08/2023, 03/09/2023, 09/08/2022 FINDINGS: There is severe emphysema. There is chronic scarring in left upper lobe. There are perihilar airspace opacities with volume loss in right upper lobe with improvement from 09/08/2023 and 03/09/2023. There are mild airspace opacities in superior segment left lower lobe with worsening from 09/08/2023. There is mild scarring in right lower lobe. There is a 7 mm nodule in left lower lobe, stable from 09/08/2022, likely benign. No pleural effusion. The heart size is normal. There are coronary artery calcifications. No pericardial effusion. Calcifications in the spleen are consistent with old granulomatous disease. There are stones in the kidneys measuring up to 6 mm on the right. There is mild chronic height loss of multiple vertebral bodies. There is mild thoracic spondylosis and severe lumbar spondylosis. IMPRESSION: 1. Continued improvement in perihilar airspace opacities in right upper lobe, consistent with chronic pneumonia. 2. Worsened mild airspace opacities in superior segment left lower lobe, consistent with pneumonia. 3. Severe emphysema. 08/19/24: CT Scan of the Chest without Contrast: Clinical Indication: COPD COMPARISON: 02/20/2024 Findings: There is no evidence of any significant mediastinal, hilar or axillary lymphadenopathy. There are extensive atherosclerotic calcifications of the coronary arteries and aorta. There is no evidence of pleural or pericardial effusion. Stable emphysema and biapical scarring with calcifications. Stable additional irregular nodule in the left upper lobe (axial image 29) disease. Stable irregular nodular scarring in the superior segment left lower lobe. Stable irregular consolidation in the right upper lobe in the perihilar region. Stable chronic scarring or atelectasis at the lingula. Probable irregular airspace opacity focally in the right lower lobe (axial image 64), likely focal infectious/inflammatory process or atelectatic change. Images through the upper abdomen reveal nonobstructing right renal stone. Stable mild compression deformities in the spine. Impression: Multiple areas of scarring and irregular consolidation the lungs are largely stable from prior exam, most prominent in the right perihilar region the upper lobe. Small new peripheral airspace opacity in the right lower lobe, most likely infectious/inflammatory in nature. Stable emphysema. infiltrates stable repeat CT scan in 12 months. 08/29/2023: Alpha 1 anti trypsin genotype MM, normal. 09/08/2023: CT Scan of the Chest without Contrast: Clinical Indication: COPD COMPARISON: 03/09/2023 Findings: There is no evidence of any significant mediastinal, hilar or axillary lymphadenopathy. The mediastinal soft tissues appear normal. There is no evidence of pleural or pericardial effusion. There is biapical scarring. Stable nodule in the superior segment left lower lobe. There is decreased size of nodule/consolidation at the right upper lobe, which currently measures up to approximately 3 cm in diameter. There is chronic scarring at the lingula, unchanged. There is moderate to severe emphysema. Stable additional left lower lobe nodule (axial image 51). Images through the upper abdomen reveal bilateral nonobstructing renal stones. Impression: Irregular somewhat nodular/masslike consolidation right upper lobe, highly decreased in extent from prior exam. This presumably represents slowly resolving pneumonia given interval decrease in size. Stable chronic scarring in the lingula with additional left pulmonary nodules, which also unchanged, as detailed above. Moderate to advanced emphysema. Bilateral nephrolithiasis. 05/23/2023: Overnight oximetry on 3 L nasal cannula.? Duration of recording is 7 hours and 24 minutes.? Baseline saturation 96%.? High saturation 99%.? Low saturation 89%.? Time with saturation less than or equal to 88% was 0 minutes.? Oxygen desaturation index is 3.91.? I will continue 3 L nasal cannula at night. 04/19/2023: Overnight oximetry on 2 L nasal cannula:? Recording duration 8 hours and 35 minutes.? Baseline saturation 95%.? High saturation 99%.? Low saturation 83%.? Time with saturation less than or equal to 88% was 5 minutes and 52 seconds (1.4% of monitored time).? Oxygen desaturation index 6.1. I will increase the oxygen to 3 L and repeat an overnight oximetry. ? ?03/03/2023:? Overnight oximetry on room air.? Duration 1 hour and 57 minutes.? Basal saturation 92.2%.? High saturation 99%.? Low saturation 81%.? Time with saturation less than or equal to 88% was 6 minutes and 15 seconds (5% of the monitored time).? Oxygen desaturation events is 34 events per hour.? I will order 2 L nasal cannula repeat overnight oximetry on 2 L nasal cannula. 03/09/23 EXAMINATION: CT diagnostic chest wo con ?INDICATION: Pneumonia, unspecified organism, left upper lobe. ?09/29/2022 CTA examination report of unchanged 8 mm pulmonary nodules of left lower lobe, likely sequelae of old granulomatous disease, but would consider 6- 12 month follow ?COMPARISON: October 24, 2022 portable AP chest ?09/29/2022 CT pulmonary scan ?FINDINGS: Chronic bilateral apical fibrocalcific scarring. ?Severe emphysematous changes are again noted. ?There is contraction of the prominent consolidation of the left upper lobe and lingula since 09/29/2022 consistent with postinfectious scarring and left upper lobe atelectasis. ?Stable approximately 6 mm superior segment left lower lobe pulmonary nodule with attenuation up to 148 Hounsfield units, likely calcified pulmonary granuloma. Stable approximately 8 mm lateral left lower lobe pulmonary nodule attenuation up to 317 Hounsfield units, also likely a calcified pulmonary granuloma. There is focal lateral left lower lobe basilar discoid atelectasis or scarring. ?There is new prominent consolidation in the left upper lobe in the upper perihilar area since 09/29/2022, likely due to pneumonia. A smaller mass or focal consolidation is noted in the anterolateral right lower lobe measuring up to approximately 2.2 cm maximal dimension. Discoid atelectasis or scarring is noted in the right lower lobe. ?Normal heart size. Coronary artery calcification. No pericardial effusion. ?There is extensive thoracic aortic as well as great vessel calcification. No thoracic aortic aneurysm. ?No hilar or mediastinal mass lesion or lymphadenopathy is noted. ?Normal morphology of the adrenal glands. ?Hepatic and splenic calcified granulomas consistent with old granulomatous disease ?Small sliding hiatal hernia. ?Mild to moderate anterior wedge compression fracture of T11. ?No suspicious osteolytic or osteoblastic lesions are noted. ?IMPRESSION:? 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 home O2 assessment requires 2 L nasal cannula with rest and 2 L with ambulation.?10/06/22 overnight oximetry on 2 L nasal cannula with average saturation 97%, low saturation 93%, time with saturation less than or equal to 88% was 0 minutes. ?09/29/2022 EXAMINATION: CTA chest PE protocol ???INDICATION: Shortness of breath ???COMPARISON: 09/24/2022 and 12/14/2021 ???FINDINGS: ???Excellent contrast opacification of the pulmonary arteries. There is mild streak artifact from dense contrast in the superior vena cava and right atrium. No significant motion artifact yielding diagnostic left study which demonstrates no pulmonary embolism. Mild enlargement of the central pulmonary arteries consistent with pulmonary arterial hypertension. Severe emphysema with moderate chronic partially calcified biapical pleural-parenchymal scarring. ??No interval change in consolidation with volume loss and air bronchograms in the anterior segment of the left upper lobe and the lingula. Also unchanged is additional reticular and minimal patchy airspace opacities in the left lower lobe along the left hemidiaphragm. ???Again seen are a pulmonary nodules in the superior and posterior basilar segments of the left lower lobe unchanged since 12/14/21 and which along with a couple centrally calcified nodules in the left upper lobe and lingula which are now obscured by the consolidation likely sequela of old granulomatous disease. Small posterior layering left pleural effusion. Small amount of mucus in the trachea and right mainstem bronchus. There is complete opacification of the main right lower lobar and more peripheral bronchi consistent with mucous plugging as it is new since 08/30/2022 at which time there were no endobronchial lesions. ??Heart size is normal. Atherosclerotic coronary artery calcifications. No pericardial effusion. Thoracic aorta is normal in caliber. No pathologically enlarged thoracic lymphadenopathy. Is reflux of contrast into the inferior vena cava and hepatic veins consistent with tricuspid regurgitation. Couple splenic calcific lesions consistent with old granulomatous disease. Multiple tiny punctate calcification is at the left kidney consistent with renal stones and/or renal medullary nephrocalcinosis. Mild thoracic and severe upper lumbar spondylosis. ???IMPRESSION: ???1. No pulmonary embolism. ???2. Unchanged consolidation in the left upper lobe and lingula and minimal lung disease at the basilar left lower lobe consistent with ongoing multifocal pneumonia. ???3. Unchanged mucous plugging involving the bronchi throughout the right lower lobe. ???4. Severe emphysema. ???5. Small left pleural effusion. ???6. Unchanged 8 mm pulmonary nodules in the left lower lobe likely sequela of old granulomatous disease but would consider 6-12 month follow-up. ?09/24/2022 EXAMINATION: CTA chest PE protocol ???INDICATION: Shortness of breath. Right chest pressure. ???COMPARISON: Chest CT 09/08/2022, 12/14/21, PET/CT 03/01/17 ???FINDINGS: There is mild scarring at the lung apices. There is severe emphysema. There is mild atelectasis bilaterally. There are airspace opacities in left upper lobe with volume loss and air bronchograms. There are mild airspace opacities in anteromedial basal segment left lower lobe. These finds are consistent with pneumonia. There is an 8 mm nodule in superior segment left lower lobe, stable from 03/01/17, likely benign. There is an 8 mm nodule in left lower lobe, stable from 12/14/2021, probably benign. There is mucous plugging in the right-sided bronchi. There is a small left pleural effusion. The heart size is normal. There are coronary artery calcifications. No pericardial effusion. The central pulmonary arteries are enlarged, consistent with pulmonary arterial hypertension. There is no pulmonary embolus. Calcifications in the spleen are consistent with old granulomatous disease. There is mild thoracic spondylosis and severe lumbar spondylosis. ???IMPRESSION: ???1. No pulmonary embolus. ???2. Left-sided pneumonia predominantly involving left upper lobe. ???3. Right-sided mucous plugging. ???4. Severe emphysema. ???5. Small left pleural effusion. ???6. Stable 8 mm pulmonary nodule, probably benign. Noncontrast low-dose chest CT is recommended in 6 months. ? ??09/09/2022:? Home O2 assessment.? Rest room air saturation 87%.? 1 L nasal cannula rest saturation 93%.? Exercise 1 L nasal cannula saturation 90%.??P atient requires 1 L at rest and with ambulation. ??09/08/2022 CT Scan of the Chest without Contrast: ???Clinical Indication: Pneumonia ???COMPARISON: 08/30/2022 ???Findings: ???There is no evidence of any significant mediastinal, hilar or axillary lymphadenopathy. Coronary artery calcium case is are present. No aortic aneurysm. ???There is no evidence of pleural or pericardial effusion. ???Extensive consolidation of the lingula is again present. There has been significant improvement in the airspace disease in the posterior superior left upper lobe as compared to prior exam, but the extensive lingular consolidation is largely unchanged. Questionable focal areas of cavitation or necrosis within the consolidation. ???Small left pleural effusion is present. There is interstitial prominence and mild airspace disease dependently adjacent to the effusion and left lower lobe. ???Stable focal pulmonary nodules in the superior segment left lower lobe (axial image 31), and more inferiorly in the left lower lobe (axial image 58). Previously noted left upper lobe nodule may be obscured by consolidation. ???Right lung is clear. Moderate to severe emphysema present. ???Images through the upper abdomen reveal partially imaged nonobstructing right renal stone. Suspected medullary nephrocalcinosis bilaterally. ???Impression: Extensive lingular pneumonia is essentially unchanged from prior exam. Questionable areas of cavitation or necrosis within the consolidation. ???Consolidation seen previously in the posterior superior left upper lobe is essentially resolved. ???Small left pleural effusion. Dependent interstitial thickening and haziness adjacent to the effusion is present, which could reflect atelectatic change versus additional pneumonia. ???Stable left lower lobe pulmonary nodules, as detailed above. Moderate to severe emphysema. ?08/30/2022 ???Clinical Indication: Chest pain, shortness of breath ???CT Scan of the Chest with Contrast: ???COMPARISON: 12/14/2021 ???Findings: There is no evidence of any significant mediastinal, hilar or axillary lymphadenopathy. There is no filling defect in the pulmonary arterial tree to suggest pulmonary embolus. There is no evidence of aortic dissection or aneurysm. ???There is no evidence of pleural or pericardial effusion. ???There is extensive left upper lobe and lingular consolidation. Underlying diffuse moderate to severe emphysema present. Stable nodules in the left upper and lower lobes (axial images 53, 61). ???Images through the upper abdomen reveal no abnormalities. ???Impression:No evidence of pulmonary embolus, aortic dissection, or aortic aneurysm. ???Extensive left upper lobe pneumonia. Follow-up to radiographic resolution advised. ???Underlying moderate to severe diffuse emphysema. ?? 12/15/2021 EXAMINATION: CT diagnostic chest wo con ?INDICATION: Lung nodules ?COMPARISON: PET/CT, 03/01/2017 ?FINDINGS: There is severe emphysema. There are multiple calcified nodules of the lungs, consistent with old granulomatous disease. There is a stable 7 mm noncalcified nodule in the superior segment of the left lower lobe on image 37. There is a 7 mm nodule of the left lower lobe on image 64 which previously measured 3 mm. Scarring is noted in the lung apices. There is no pleural effusion or pneumothorax. The lungs are free of acute opacities. No pathologically enlarged thoracic lymph nodes are identified. The heart size is normal. Punctate calcifications in an otherwise normal spleen likely represent healed granulomatous disease. There is mild thoracic spondylosis. There is severe upper lumbar spondylosis. ?IMPRESSION: ?1. 7 mm nodule of the left lower lobe with increase in size since the prior examination, granulomatous disease versus malignancy. Recommend follow-up CT in 3-6 months. Multiple additional stable pulmonary nodules with and without calcification likely reflect old granulomatous disease. ?2. Severe emphysema. ??11/02/2021:? PFTs ??The test was performed and results interpreted in accordance with the 2019 and 2005 ATS/ERS Task Force guidelines respectively using the Global Lung Function Initiative-2012 reference equations. Patient demonstrated good effort and cooperation. Reproducibility criteria were met. The quality of the pre bronchodilator spirometry maneuver was Grade A and post bronchodilator spirometry maneuver was Grade B. ??Findings: ??Spirometry:? There is decreased maximal expiratory airflow at all lung volumes with concave expiratory flow tracing.? The contour the inspiratory flow tracing is normal.? The pre bronchodilator FVC is 1.68 L, 68% predicted.? The pre bronchodilator FEV1 is 0.74 L, 38% predicted.? The pre bronchodilator FEV1:? FVC ratio is 44%.? The post bronchodilator FVC is 2.22 L, representing a 32% increase.? The post bronchodilator FEV1 is 0.68 L, representing a 7% decrease.? The post bronchodilator FEV1:? FVC ratio is 31%. ??Plethysmography:? The total lung capacity is 8.60 L, representing 187% predicted.? The functional residual capacity is 7.53 L, 287% predicted.? The residual volume is 6.45 L, 307% predicted. ??Diffusing Capacity:? The diffusing capacity unadjusted for hemoglobin and carboxyhemoglobin is 4.4, 23% predicted.? Diffusing capacity adjusted for alveolar volume is 1.34, 31% predicted. ??My impression:?There is a severe obstructive abnormality?with significant improvement after inhaling a single dose of albuterol. The increase in residual volume is consistent with air trapping from an obstructive abnormality.? Hyperinflation is present as demonstrated by the increase in functional residual capacity and total lung capacity and is consistent with an obstructive abnormality. The diffusing capacity unadjusted for hemoglobin and carboxyhemoglobin is severely decreased and remains severely decreased when adjusted for alveolar volume. ??There are no prior studies for comparison Review of Systems 2 Constitutional: Constitutional: Reports no additional constitutional complaints Eyes: Eyes: Reports no additional eye complaints ENT: Reports system reviewed and no additional complaints, except as documented Cardiovascular: Cardiovascular: Reports no additional cardiovascular complaints Respiratory: Respiratory: Reports no additional respiratory complaints Gastrointestinal: Gastrointestinal: Reports no additional gastrointestinal complaints Musculoskeletal: Musculoskeletal: Reports no additional musculoskeletal complaints Neurologic: Reports system reviewed and no additional complaints, except as documented Psychiatric: Psychiatric: Reports no additional psychiatric complaints Endocrine: Endocrine: Reports no additional endocrine complaints Hematologic/Lymphatic: Hematologic/Lymphatic: Reports no additional hematologic/lymphatic complaints Allergic/Immunologic: Allergic/Immunologic: Reports no additional allergic/immunologic complaints [facility] Past Medical History Medical History Pulmonary nodule 7 mm left lower lobe nodule increased in size compared to prior exam 2017 with recommended follow-up CT scan in March-April Patient stated she had a PET scan which was negative. 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 Severely reduced diffusion capacity Hypercholesterolemia Hypertension Surgical History Surgical History History of extraction of renal calculus History of 2 sections H/O cystoscopy Family History Family History (Updated 10/12/24 @ 23:06 by Karla Slaughter RN) Father Acute myocardial infarction Hypertension Mother Chronic obstructive pulmonary disease Diabetes mellitus Sibling Pulmonary hypertension Chronic obstructive pulmonary disease Hypertension Social History Social History Social History: She reports that her daughter and 2 grand children recently moved in with her. 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 She denies any significant alcohol use or illicit substance use. Code status: Full code Surrogate decision maker: Diana (daughter) Smoking packs per day: 1 Smoking cigarettes per day: 20.0 Years smoked: 50 Smoking pack-years: 50.00 Smoking status: Former smoker Tobacco type: cigarettes Second hand tobacco smoke exposure: Yes Smoking end date: 08/29/22 Alcohol intake: never Substance use: never Substance use type: does not use Do You Feel Safe in your Home?: Yes Lack of Transportation: No Lack of Food: Never True Current Housing: I Have Housing Concerned About Future Housing: No Difficulty Paying Gas/Electric Bills: No Difficulty Paying for Meds: No Currently Unemployed: No Education: Trade/Vocational Certificate Difficulty w/ Childcare or Family Care: No Spiritual care concerns: No Meds Home Medications and Allergies Home Medications ?Medication ?Instructions ?Recorded ?Confirmed ?Type pravastatin 20 mg tablet 20 mg PO HS 01/16/22 10/12/24 History magnesium oxide 400 mg (241.3 mg 400 mg PO DAILY 06/08/22 10/12/24 History magnesium) tablet mirabegron 25 mg tablet,extended 25 mg PO DAILY 30 days #30 tabs 06/13/22 10/12/24 Rx release 24 hr (Myrbetriq) acetaminophen 500 mg tablet 500 mg PO TID PRN Pain 09/24/22 10/12/24 History diltiazem HCl 120 mg 120 mg PO DAILY 10/24/22 10/12/24 History capsule,extended release 24 hr flecainide 100 mg tablet 100 mg PO Q12HR #30 tabs 11/05/22 10/12/24 Rx rivaroxaban 15 mg tablet (Xarelto) 15 mg PO 1700 #30 tabs 11/05/22 10/12/24 Rx ELIDIA on 2L oxygen #1 ea 03/21/23 10/12/24 Rx levalbuterol HCl 1.25 mg/3 mL 1.25 mg (3 mL) inhalation Q4H #90 01/01/24 10/12/24 Rx solution for nebulization mL levalbuterol tartrate 45 See Rx Instructions .Route 05/28/24 10/12/24 Rx mcg/actuation aerosol inhaler .COMPLEX #15 grams azithromycin 250 mg tablet 500 mg (2 x 250 mg) PO 3XW #36 tabs 06/26/24 10/12/24 Rx budesonide 160 mcg-glycopyr 9 2 inh inhalation BID #10.7 grams 09/09/24 10/12/24 Rx mcg-formot 4.8 mcg/actuation HFA inhaler azithromycin 250 mg tablet See Rx Instructions PO .COMPLEX #6 10/08/24 10/12/24 Rx tabs budesonide 160 mcg-glycopyr 9 2 inh inhalation BID 10/12/24 10/12/24 History mcg-formot 4.8 mcg/actuation HFA inhaler (Breztri Aerosphere) Allergies Allergy/AdvReac Type Severity Reaction Status Date / Time morphine Allergy Unknown ITCHING Verified 10/12/24 17:51 gabapentin Allergy Other Verified 10/12/24 17:51 Vital Signs Vital Signs - 24 hr 10/13/24 16:00 10/13/24 16:00 10/13/24 16:51 Temperature 36.7 C Pulse Rate 110 H 109 H Respiratory Rate 22 H Blood Pressure 145/68 H Pulse Oximetry 100 97 Oxygen Delivery Nasal Cannula Oxygen Flow Rate 2.5 Fraction of Inspired Oxygen 10/13/24 18:00 10/13/24 19:51 10/13/24 20:00 Temperature 36.7 C Pulse Rate 101 H 99 101 H Respiratory Rate 20 20 Blood Pressure 142/63 H Pulse Oximetry 98 98 Oxygen Delivery Nasal Cannula Oxygen Flow Rate 3 Fraction of Inspired Oxygen 10/13/24 20:00 10/13/24 21:21 10/13/24 21:21 Temperature Pulse Rate 101 H 102 H Respiratory Rate 20 Blood Pressure Pulse Oximetry 98 Oxygen Delivery Nasal Cannula Oxygen Flow Rate 3 Fraction of Inspired Oxygen 10/13/24 21:35 10/13/24 21:40 10/13/24 21:59 Temperature Pulse Rate 99 100 108 H Respiratory Rate 20 20 Blood Pressure Pulse Oximetry 98 Oxygen Delivery BiPAP Oxygen Flow Rate Fraction of Inspired Oxygen 10/14/24 00:00 10/14/24 00:00 10/14/24 00:00 Temperature 36.5 C Pulse Rate 91 91 91 Respiratory Rate 16 16 Blood Pressure 136/71 Pulse Oximetry 97 100 Oxygen Delivery BiPAP Oxygen Flow Rate Fraction of Inspired Oxygen 30 10/14/24 02:16 10/14/24 02:17 10/14/24 04:00 Temperature Pulse Rate 94 94 96 Respiratory Rate 24 H 24 H Blood Pressure Pulse Oximetry 99 Oxygen Delivery BiPAP Oxygen Flow Rate Fraction of Inspired Oxygen 10/14/24 04:00 10/14/24 04:00 10/14/24 06:00 Temperature 36.6 C Pulse Rate 96 98 92 Respiratory Rate 24 H 20 24 H Blood Pressure 134/64 Pulse Oximetry 99 99 Oxygen Delivery BiPAP Oxygen Flow Rate Fraction of Inspired Oxygen 30 10/14/24 07:46 10/14/24 08:30 10/14/24 08:30 Temperature 36.2 C L Pulse Rate 98 104 H 104 H Respiratory Rate 22 H 20 20 Blood Pressure 153/72 H Pulse Oximetry 100 99 Oxygen Delivery BiPAP Oxygen Flow Rate Fraction of Inspired Oxygen 10/14/24 08:42 10/14/24 10:05 10/14/24 11:50 Temperature Pulse Rate 104 H 106 H Respiratory Rate 20 Blood Pressure Pulse Oximetry 98 Oxygen Delivery Nasal Cannula Oxygen Flow Rate 4 Fraction of Inspired Oxygen 10/14/24 12:10 10/14/24 12:47 10/14/24 15:06 Temperature 36.7 C Pulse Rate 112 H 103 H 101 H Respiratory Rate 21 H 26 H 22 H Blood Pressure 154/81 H Pulse Oximetry 98 100 Oxygen Delivery BiPAP Oxygen Flow Rate Fraction of Inspired Oxygen 10/14/24 15:13 10/14/24 15:29 Temperature Pulse Rate 105 H Respiratory Rate 24 H Blood Pressure Pulse Oximetry 95 Oxygen Delivery Non-Rebreather Mask Oxygen Flow Rate 15 Fraction of Inspired Oxygen Exam 2 Narrative: patient is on BiPAP. Const: General: cooperative, healthy appearing and comfortable O rientation/consciousness: oriented to person, oriented to place and oriented to time HENMT: Head: normal to inspection Ears: hearing grossly normal bilaterally Eyes: General: appearance normal, both eyes and all related structures Neck: Neck: normal visual inspection Chest: Chest palpation & inspection: normal inspection of the chest Resp: Effort & Inspection: normal respiratory effort and able to speak in complete sentences Auscultation: no crackles, no rales, no rhonchi, no wheezes and diminished lung sounds Cardio: Jugular venous distension: no JVD GI: Inspection: normal to inspection GI Palp: No abdominal tenderness Skin: General skin exam: normal color Neuro: General: oriented to person, oriented to place and oriented to time Extrem: General: normal to inspection and no edema Psych: Appearance: grossly normal Results Laboratory Findings 10/14/24 12:26 10/14/24 12:26 ABG, PT/INR, D-dimer: ABG ABG pH 7.320 (7.350-7.450) L 10/13/24 11:31 ABG pCO2 42.3 mmHg (35.0-45.0) 10/13/24 11:31 ABG pO2 105.4 mmHg (80.0-100.0) H 10/13/24 11:31 ABG O2 Saturation 97.4 % (95.0-100.0) 10/13/24 11:31 PT/INR, D-dimer PT 18.2 Seconds (11.1-14.7) H 10/12/24 17:26 INR 1.5 10/12/24 17:26 Abnormal lab findings: Abnormal Labs 10/12/24 10/12/24 10/13/24 17:26 17:59 04:30 WBC 14.4 H RBC 3.82 L Hgb 15.4 H D 11.9 L D Hct 49.1 H MCHC 31.4 L 31.6 L MPV 11.1 H 10.6 H Neut % (Auto) 75.6 H 91.0 H Lymph % (Auto) 11.4 L 5.9 L [place] % (Auto) 12.1 H Baso % (Auto) 0.1 L Lymph # (Auto) 0.46 L [place] # (Auto) 1.8 H Abs Immat Gran (auto) 0.04 H Absolute Neuts (auto) 10.9 H 7.1 H PT 18.2 H ABG pH 7.264 L* ABG pCO2 50.9 H ABG pO2 105.2 H ABG HCO3 ABG O2 Saturation Sodium Chloride 110 H Carbon Dioxide 21 L 19 L Anion Gap 22 H 13 H BUN 25 H 24 H Creatinine 1.28 H Estimated GFR 41 L 57 L Glucose 112 H 121 H Lactic Acid 2.8 H Calcium 10.5 H Magnesium 2.4 H NT-Pro-B Natriuret Pep 743 H Total Protein 9.0 H Ur Specific [place] Urine Ketones Ur Blood (Man) Urine RBC RSV (RT-PCR) Positive A 10/13/24 10/13/24 10/13/24 05:10 05:54 11:31 WBC RBC Hgb Hct MCHC MPV Neut % (Auto) Lymph % (Auto) [place] % (Auto) Baso % (Auto) Lymph # (Auto) [place] # (Auto) Abs Immat Gran (auto) Absolute Neuts (auto) PT ABG pH 7.266 L* 7.320 L ABG pCO2 ABG pO2 105.4 H ABG HCO3 18.6 L 21.3 L ABG O2 Saturation 94.8 L Sodium Chloride Carbon Dioxide Anion Gap BUN Creatinine Estimated GFR Glucose Lactic Acid Calcium Magnesium NT-Pro-B Natriuret Pep Total Protein Ur Specific [place] > 1.045 H Urine Ketones 2+ H Ur Blood (Man) 2+ H Urine RBC 51-100 H RSV (RT-PCR) 10/14/24 12:26 WBC 19.0 H RBC 4.01 L Hgb Hct MCHC 31.8 L MPV 10.8 H Neut % (Auto) Lymph % (Auto) [place] % (Auto) Baso % (Auto) Lymph # (Auto) [place] # (Auto) Abs Immat Gran (auto) Absolute Neuts (auto) PT ABG pH ABG pCO2 ABG pO2 ABG HCO3 ABG O2 Saturation Sodium 146 H Chloride 111 H Carbon Dioxide 21 L Anion Gap 14 H BUN 23 H Creatinine Estimated GFR Glucose 161 H Lactic Acid Calcium Magnesium NT-Pro-B Natriuret Pep Total Protein Ur Specific [place] Urine Ketones Ur Blood (Man) Urine RBC RSV (RT-PCR) Diagnostic Findings Additional studies: ITS Impressions Chest X-Ray 10/12/24 17:55 IMPRESSION: No acute cardiopulmonary process. Chest CT 10/12/24 19:30
[2024-10-14] MEDS: methylPREDNISolone SOD SUCC 40 MG VIAL 20 MG IV PUSH (17:04)
--- NOTE | 2024-10-14 17:35 | PCRCNOTE ---
Window of time for administration has passed. See next scheduled administration.
[2024-10-14] MEDS: PRAVASTATIN SODIUM 20 MG TABLET PO (20:34)
[2024-10-14] MEDS: guaiFENesin 12 HR 600 MG TABCR 1200 MG PO (20:34)
[2024-10-14] MEDS: ACETAMINOPHEN 325 MG TABLET 650 MG PO (20:35)
[2024-10-14] MEDS: RIVAROXABAN 15 MG TABLET PO (22:44)
--- NOTE | 2024-10-14 22:59 | PCRCNOTE ---
RT attempt to perform Apnea Link to assess for Noctural O2 needs at 5L NC per Dr. Rogers order. Patient desat to 84-86% on 5L NC. RT increased pt to 15L HFNC.. Apnea Link unable to be performed at this time. Pt is now on 15L HFNC with SpO2 92%. Will attempt to wean when able. RN aware.
[2024-10-15] VITALS (33 sets, daily range): BP systolic 154–173; BP diastolic 78–94; PULSE 87–120; RESP 12–39; TEMP 36.4–37.1; O2SAT 95–100
[2024-10-15] MEDS: methylPREDNISolone SOD SUCC 40 MG VIAL 20 MG IV PUSH ×2 (00:35→05:41)
[2024-10-15] MEDS: IPRATROPIUM BR 0.02% INH SOLN 0.5 MG/2.5 ML VIAL INHALATION ×6 (03:34→23:28)
[2024-10-15] MEDS: LEVALBUTEROL NEB 1.25 MG/3 ML 0.63 MG INHALATION ×6 (03:35→23:28)
[2024-10-15 05:43] LABS: NT Pro B Type Natriuretic Pept 998 pg/mL (19.9-100)
[2024-10-15 05:57] LABS: Procalcitonin 0.1 ng/mL
[2024-10-15] MEDS: FLECAINIDE ACETATE 100 MG TABLET PO ×2 (08:41→21:23)
[2024-10-15] MEDS: MAGNESIUM OXIDE 400 MG TABLET PO (08:42)
[2024-10-15] MEDS: guaiFENesin 12 HR 600 MG TABCR 1200 MG PO ×2 (08:42→21:23)
[2024-10-15] MEDS: MIRABEGRON 25 MG ER TABLET PO (08:42)
[2024-10-15] MEDS: dilTIAZem HCL CD 120 MG CAP.24HR PO (08:43)
[2024-10-15] MEDS: DOXYCYCLINE 100 MG/NS 100 ML 100 MG/100 ML BAG IVPB ×2 (08:44→21:23)
--- NOTE | 2024-10-15 09:31 | PM.IMPN ---
Progress Note: A&P Assessment and Plan (1) Lactic acidosis: Code(s): E87.20 - Acidosis, unspecified Status: Acute (2) Sepsis: Code(s): A41.9 - Sepsis, unspecified organism Status: Acute (3) Acute on chronic respiratory failure with hypoxia and hypercapnia: Code(s): J96.21 - Acute and chronic respiratory failure with hypoxia; J96.22 - Acute and chronic respiratory failure with hypercapnia Status: Acute (4) Respiratory syncytial virus (RSV): Qualifiers: RSV infection type: unspecified Qualified Code(s): B33.8 - Other specified viral diseases Code(s): B33.8 - Other specified viral diseases Status: Acute Plan This is a 74-year-old female with a past medical history prior tobacco abuse, COPD and chronic respiratory failure on 3 L nasal cannula continuously, atrial fibrillation on Xarelto, hypertension, hypercholesterolemia, polycythemia secondary to hypoxia, pulmonary nodule. She is accompanied by her who she lives with and her daughter. The patient quit smoking 2 years prior and has not been hospitalized since then either. She has been in her normal state of health and does not frequently use her inhalers or nebulizers. In the past 2 days she has used them multiple times due to shortness of breath and a cough productive of green/whitfield sputum. She denies chest pain. On 10/11/2024 the patient presents to [place] ER due to severe difficulty breathing. ER nurse practitioner note patient was tripoding on arrival. Tachypnea with respiratory rate 24-27. Vitals otherwise stable. WBC 14.4, hemoglobin 15.4, . Acute on chronic respiratory failure with hypoxia and hypercapnia Patient has chronic respiratory failure Upon arrival in the ED, patient has worsening O2 desaturation, ABG demonstrating pH 7.264, pCO2 50.9, PO2 105.2 on BiPAP, bicarb 22.5 patient was placed on BiPAP. COPD exacerbation RSV infection. Suspected bacterial pneumonia on vancomycin ceftriaxone and azithromycin, Solu-Medrol 125 mg IV push x1, 2 L normal saline bolus, Start DuoNeb scheduled, albuterol nebulizer. Methylprednisolone 40 mg q.6 hours IV Consult check writer salesperson for evaluation treatment Acute renal failure due to Dehydration and sepsis BUN 25, serum creatinine 1.28, baseline creatinine 0.7 Received fluid resuscitation Kidney function improving Discontinue normal saline 75 mL/hour Severe sepsis without shock lactic acidosis with end-organ damage, acute hypoxic respiratory failure and acute kidney injury Paroxysmal atrial fibrillation on Xarelto, Cardizem 120 mg daily p.o. And flecainide 100 mg b.i.d. p.o. Follow-up echocardiogram 1. Complete two-dimensional, color flow and Doppler transthoracic echocardiogram is performed. 2. There is normal biventricular size and systolic function. 3. There is no significant valvular disease. Chronic hypertension Stable Restart [employer] Xarelto. Patient wishes to be full code. Home medications will be restarted as appropriate if indicated. Subjective Date/time seen: 10/15/24 09:31 Interval history: I saw examined patient today. Patient still has shortness breath, cough with scant phlegm. Patient is on BIPAP. Patient feels improving slowly. Patient denies chest pain abdomen pain nausea vomiting diarrhea Exam Narrative: GENERAL: Ill-appearing in no acute distress. Moderate malnutrition - EYES: EOMI. Anicteric. - HENT: Moist mucous membranes. - LUNGS: Distant breath sound bilateral, scattered wheezing, coarse breath sound bilateral base, - CARDIOVASCULAR: Regular rate and rhythm. No murmur. No JVD. - ABDOMEN: Soft, non-tender and non-distended. No palpable masses. - EXTREMITIES: No edema. Peripheral pulses 2+. Non-tender. - NEUROLOGIC: No focal neurological deficits. CN II-XII grossly intact. General weakness - PSYCHIATRIC: Awake, Alert and oriented x 3. Appropriate mood and affect. - SKIN: No rashes or lesions. Warm. - LYMPH: No cervical lymphadenopathy. Objective Data Vital Signs Vital Signs: Vital Signs - 24 hr 10/14/24 10:00 10/14/24 10:05 10/14/24 11:50 Temperature Pulse Rate 105 H 106 H Respiratory Rate Blood Pressure Pulse Oximetry 98 Oxygen Delivery Nasal Cannula Oxygen Flow Rate 4 Fraction of Inspired Oxygen 10/14/24 12:00 10/14/24 12:00 10/14/24 12:10 Temperature Pulse Rate 110 H 112 H Respiratory Rate 21 H Blood Pressure Pulse Oximetry 100 98 Oxygen Delivery BiPAP BiPAP Oxygen Flow Rate Fraction of Inspired Oxygen 30 10/14/24 12:47 10/14/24 14:00 10/14/24 15:06 Temperature 98.0 F Pulse Rate 103 H 98 101 H Respiratory Rate 26 H 22 H Blood Pressure 154/81 H Pulse Oximetry 100 Oxygen Delivery Oxygen Flow Rate Fraction of Inspired Oxygen 10/14/24 15:13 10/14/24 15:29 10/14/24 15:38 Temperature Pulse Rate 105 H 107 H Respiratory Rate 24 H 20 Blood Pressure Pulse Oximetry 95 96 Oxygen Delivery Non-Rebreather Mask Oxygen Flow Rate 15 Fraction of Inspired Oxygen 10/14/24 15:55 10/14/24 16:00 10/14/24 16:00 Temperature 97.4 F L Pulse Rate 111 H 110 H 113 H Respiratory Rate 28 H 27 H Blood Pressure 152/74 H Pulse Oximetry 96 100 Oxygen Delivery BiPAP Oxygen Flow Rate Fraction of Inspired Oxygen 10/14/24 16:00 10/14/24 18:00 10/14/24 19:29 Temperature Pulse Rate 105 H 106 H Respiratory Rate 20 Blood Pressure Pulse Oximetry 100 98 Oxygen Delivery BiPAP BiPAP Oxygen Flow Rate Fraction of Inspired Oxygen 30 10/14/24 19:29 10/14/24 19:29 10/14/24 20:00 Temperature Pulse Rate 106 H 112 H Respiratory Rate 20 22 H Blood Pressure Pulse Oximetry 98 Oxygen Delivery BiPAP Oxygen Flow Rate Fraction of Inspired Oxygen 28 10/14/24 20:00 10/14/24 20:00 10/14/24 20:02 Temperature 97.5 F L Pulse Rate 111 H 111 H 110 H Respiratory Rate 28 H 32 H Blood Pressure 167/85 H Pulse Oximetry 99 99 Oxygen Delivery BiPAP Oxygen Flow Rate Fraction of Inspired Oxygen 30 10/14/24 20:33 10/14/24 22:00 10/14/24 23:09 Temperature Pulse Rate 109 H 92 99 Respiratory Rate 21 H Blood Pressure Pulse Oximetry 95 Oxygen Delivery BiPAP Oxygen Flow Rate Fraction of Inspired Oxygen 10/14/24 23:09 10/14/24 23:22 10/15/24 00:00 Temperature 97.5 F L Pulse Rate 99 100 100 Respiratory Rate 21 H 24 H 20 Blood Pressure 153/84 H Pulse Oximetry 100 98 Oxygen Delivery BiPAP Oxygen Flow Rate Fraction of Inspired Oxygen 30 10/15/24 00:00 10/15/24 02:00 10/15/24 03:35 Temperature Pulse Rate 100 100 97 Respiratory Rate 16 Blood Pressure Pulse Oximetry 98 Oxygen Delivery BiPAP Oxygen Flow Rate Fraction of Inspired Oxygen 10/15/24 03:35 10/15/24 03:45 10/15/24 04:00 Temperature Pulse Rate 97 100 101 H Respiratory Rate 16 20 20 Blood Pressure Pulse Oximetry 98 Oxygen Delivery BiPAP Oxygen Flow Rate Fraction of Inspired Oxygen 30 10/15/24 04:00 10/15/24 04:34 10/15/24 05:40 Temperature 97.7 F Pulse Rate 101 H 104 H 108 H Respiratory Rate 38 H Blood Pressure 171/85 H Pulse Oximetry 99 Oxygen Delivery Oxygen Flow Rate Fraction of Inspired Oxygen 10/15/24 05:40 10/15/24 07:31 10/15/24 07:31 Temperature Pulse Rate 104 H 108 H Respiratory Rate 26 H 22 H Blood Pressure Pulse Oximetry 100 99 Oxygen Delivery Nasal Cannula BiPAP Oxygen Flow Rate 4 Fraction of Inspired Oxygen 28 10/15/24 07:37 10/15/24 08:09 10/15/24 08:41 Temperature 97.7 F Pulse Rate 108 H 120 H 116 H Respiratory Rate 22 H 19 Blood Pressure 173/94 H Pulse Oximetry 99 100 Oxygen Delivery BiPAP Oxygen Flow Rate Fraction of Inspired Oxygen Intake/Output Intake/Output: Intake & Output 10/12/24 10/13/24 10/14/24 10/15/24 23:59 23:59 23:59 23:59 Intake Total 1800 2130 2609 318 Output Total 500 1000 200 Balance 1800 1630 1609 118 Meds/Results Medications: Active Medications Generic Name Dose Route Start Last Admin Trade Name Freq PRN Reason Stop Dose Admin Acetaminophen 650 mg 10/12/24 20:30 10/14/24 20:35 Acetaminophen 325 Mg Tablet PO 650 mg Q4H PRN Administration Mild Pain (1-3) or Fever Dextrose 12.5 gm 10/12/24 20:30 Dextrose 50% 25 Gm/50 Ml Syringe IV PUSH PRN PRN Hypoglycemia Protocol Diltiazem HCl 120 mg 10/13/24 09:00 10/15/24 08:43 Diltiazem Hcl Cd 120 Mg Cap.24hr PO 120 mg DAILY ANIYA Administration Flecainide Acetate 100 mg 10/13/24 17:40 10/15/24 08:41 Flecainide Acetate 100 Mg Tablet PO 100 mg Q12HR ANIYA Administration Glucose 15 gm 10/12/24 20:30 Glucose Oral Gel 15 Gm Of Glucse In 37.5 Gm Tube PO PRN PRN Hypoglycemia Protocol Guaifenesin 1,200 mg 10/14/24 21:00 10/15/24 08:42 Guaifenesin 12 Hr 600 Mg Tabcr PO 1,200 mg Q12HR ANIYA Administration Ceftriaxone Sodium 1 gm in 50 mls @ 100 mls/hr 10/13/24 18:00 10/14/24 17:04 Rocephin 1 Gm/Ns 50 Ml IVPB 100 mls/hr Q24H ANIYA Administration Dextrose 1,000 mls @ 100 mls/hr 10/12/24 20:30 Dextrose 5% 1,000 Ml IVPB PRN PRN Hypoglycemia Protocol Doxycycline Hyclate 100 mg in 100 mls @ 100 mls/hr 10/13/24 21:00 10/15/24 08:44 Vibramycin 100 Mg/Ns 100 Ml IVPB 100 mls/hr Q12H ANIYA Administration Ipratropium [place] 0.5 mg 10/13/24 05:46 10/13/24 06:00 Ipratropium Br 0.02% Inh Soln 0.5 Mg/2.5 Ml Vial INHALATION 0.5 mg Q6HRT PRN Administration Shortness Of Breath Ipratropium [place] 0.5 mg 10/14/24 16:00 10/15/24 07:30 Ipratropium Br 0.02% Inh Soln 0.5 Mg/2.5 Ml Vial INHALATION 0.5 mg Q4HRT ANIYA Administration Levalbuterol HCl 1.25 mg 10/13/24 05:46 10/13/24 06:00 Levalbuterol Neb 1.25 Mg/3 Ml INHALATION 1.25 mg Q6HRT PRN Administration Shortness Of Breath Or Wheezing Levalbuterol HCl 0.63 mg 10/14/24 16:00 10/15/24 07:31 Levalbuterol Neb 1.25 Mg/3 Ml INHALATION 0.63 mg Q4HRT ANIYA Administration Magnesium Oxide 400 mg 10/15/24 09:00 10/15/24 08:42 Magnesium Oxide 400 Mg Tablet PO 400 mg DAILY ANIYA Administration Methylprednisolone Sodium Succinate 20 mg 10/14/24 18:00 10/15/24 05:41 Methylprednisolone Sod Succ 40 Mg Vial IV PUSH 20 mg Q6HR ANIYA Administration Mirabegron 25 mg 10/13/24 09:00 10/15/24 08:42 Mirabegron 25 Mg Er Tablet PO 25 mg DAILY ANIYA Administration Perflutren Lipid Microsphere 0 ml 10/13/24 15:22 Perflutren Lipid Microspheres 1.5 Ml Vial Diluted To 10 Ml Total Volume IV PUSH 10/16/24 15:22 ONCE PRN adequate visualization Protocol Pravastatin Sodium 20 mg 10/12/24 23:40 10/14/24 20:34 Pravastatin Sodium 20 Mg Tablet PO 20 mg HS ANIYA Administration Rivaroxaban 15 mg 10/14/24 21:00 10/14/24 22:44 Rivaroxaban 15 Mg Tablet PO 15 mg 2100 ANIYA Administration Radiology Results: ITS Impressions Chest X-Ray 10/12/24 17:55 IMPRESSION: No acute cardiopulmonary process. Chest CT 10/12/24 19:30 IMPRESSION: Scattered small, likely infectious/inflammatory foci, overlying a background of severe emphysematous change and largely stable areas of parenchymal scarring. Mild esophagitis/gastritis. Hepatic steatosis. Labs Labs: Laboratory Results - last 24 hr 10/14/24 10/15/24 12:26 04:46 WBC 19.0 H RBC 4.01 L Hgb 12.5 Hct 39.3 MCV 98.0 MCH 31.2 MCHC 31.8 L RDW 13.0 Plt Count 210 MPV 10.8 H Sodium 146 H Potassium 3.6 Chloride 111 H Carbon Dioxide 21 L Anion Gap 14 H BUN 23 H Creatinine 0.81 Estim Creat Clear Calc 38 Estimated GFR > 60 Glucose 161 H Calcium 9.1 NT-Pro-B Natriuret Pep 998 H Procalcitonin 0.1
--- NOTE | 2024-10-15 10:55 | PM.PNPUL ---
Progress Note: A&P Assessment and Plan (1) Respiratory syncytial virus (RSV): Qualifiers: RSV infection type: unspecified Qualified Code(s): B33.8 - Other specified viral diseases Code(s): B33.8 - Other specified viral diseases Status: Acute Assessment and Plan: Patient tested positive for RSV 10/12/24. Patient is had worsening work of breathing without hypercarbic respiratory failure on BiPAP. Most recent ABG on BiPAP 12/6 on 10/13/24 was 7.32/42/105. 10/14/2024: The patient says she is better. She was only able to tolerate 10 minutes off the BiPAP to eat lunch. Currently she is on BiPAP rate of 4 breathing 20, pressures 12/6 with tidal volumes 447 and 30% FiO2 with saturations 98%. She said the BiPAP was uncomfortable and I changed her to a noninvasive ventilation with the AVAPS mode rate of 14, tidal volume 450, EPAP 5, minimal inspiratory pressure 6, maximal inspiratory pressure 25, rise of 1 fastest, inspiratory time 1.0, FiO2 28%. She said these settings were more comfortable. Today are white blood cell count is 19.0, creatinine 0.81. Approximately 1 hour later patient had worsening respiratory distress stating that the BiPAP for rate of 4 pressures 12/6 was better for her and she was switched back to this. Plan: Treatment for RSV pneumonia is supportive. Initially did better with AVAPS mode but then requested to go back on straight BiPAP as this was more comfortable for her. Agree with treatment for other possible conditions including COPD exacerbation, bacterial pneumonia, and cardiac conditions. Echocardiogram with normal biventricular size and function. No significant valvular disease, left atrium is normal. The right atrium is normal. RVSP 37%. 10/15/24: patient has remained on BiPAP overnight. She tolerated being off BiPAP and on 4 L for 25 minutes this morning prior to breakfast and for 20 minutes at breakfast time. Currently she denies shortness of breath and is on the BiPAP and says she is comfortable. BNP is 998. Procalcitonin is decreased from 0.3 on 10/13 to 0.1 today. she is awake and following commands. Plan: Continue supportive treatment with BiPAP for work of breathing. goal saturation 90-94% was supplemental oxygen as required. She is empirically being treated for bacterial infection with ceftriaxone day 4 and azithromycin followed by doxycycline day 4. She is afebrile with no leukocytosis and her procalcitonin is decreasing. Will discontinue antibiotics tomorrow. Discussed with Dr. Abbasi, will follow with you. (2) COPD (chronic obstructive pulmonary disease): Code(s): J44.9 - Chronic obstructive pulmonary disease, unspecified Status: Acute Assessment and Plan: Patient with a history of 47 pack year tobacco use, Alpha 1 anti trypsin genotype MM, PFTs 11/02/2021 with a severe obstructive abnormality, FEV 1 is 0.74 L, 38% predicted, bronchodilator response, air trapping, hyperinflation and a DLCO that was severely decreased when adjusted for alveolar volume, 1st CT scan of the chest in our system from 12/14/2021 with severe panlobular emphysema throughout all lung [place], hypoxic respiratory failure requiring 2 L at rest, with ambulation and with sleep. No evidence of hypercarbic respiratory failure dating back to 01/17/2022 with a blood gas of 7.36/43/64 on room air. Echocardiogram with tricuspid regurgitation peak gradient 42 on 06/11/2022. She developed a multifocal necrotic pneumonia on 08/30/2022 and completed 6 weeks of antibiotics on 10/16/2022. Outpatient exacerbation 10/2023 and 12/2023. 10/24/2022 with CBC with white blood cell count 14.4, eosinophils 0%. 09/24/2022 CBC with white blood cell count 9.6, eosinophils 0.2%=19.2. 10/12/2024: BNP 743. 10/13/24: Procalcitonin 0.3. 10/14/24: Plan: Patient had been on Solu-Medrol 40 mg IV q.6 hours, day 3 of systemic steroids. I will decrease to 20 mg IV q.6. Continue ipratropium and levalbuterol and will increase the frequency to q.4 hours. Discontinue trelegy as patient is on maximal dose beta agonist, muscarinic antagonists and steroids. I will place the patient on guaifenesin 1200 mg p.o. b.i.d. and give her 2 600 mg tablets because she cannot swallow the 1200 mg tablets. Patient currently treated for bacterial pneumonia with ceftriaxone day 3, and azithromycin 1 dose on 10/12/2024 followed by doxycycline now day 2. I will send urine for Legionella, urine for pneumococcal and serum mycoplasma IgM. MRSA swab is negative. weight today is 46.7 with an admission weight of 49 . since admission she is 5.1 L positive. will check BnP on 10/15/2024. 10/15 Patient has no wheezing today. Plan: Today is day 4 of systemic steroids and I will give her 40 mg of prednisone tomorrow and then discontinue. Continue ipratropium and levalbuterol q.4 hours. Continue guaifenesin 1200 mg p.o. q.12 hours. Subjective Date/time seen: 10/15/24 10:55 Interval history: 10/14/2024: This is a new pulmonary consult for COPD with RSV pneumonia. Patient has a history of GOLD grade 3 group B COPD On home oxygen, atrial fibrillation on Xarelto, hypertension, hyperlipidemia and followed [facility] the [facility] in last seen on 06/26/2024: Regarding her COPD, patient with a history of 47 pack year tobacco use, Alpha 1 anti trypsin genotype MM, PFTs 11/02/2021 with a severe obstructive abnormality, FEV 1 is 0.74 L, 38% predicted, bronchodilator response, air trapping, hyperinflation and a DLCO that was severely decreased when adjusted for alveolar volume, 1st CT scan of the chest in our system from 12/14/2021 with severe panlobular emphysema throughout all lung [place], hypoxic respiratory failure requiring 2 L at rest, with ambulation and with sleep. No evidence of hypercarbic respiratory failure dating back to 01/17/2022 with a blood gas of 7.36/43/64 on room air. Echocardiogram with tricuspid regurgitation peak gradient 42 on 06/11/2022. She developed a multifocal necrotic pneumonia on 08/30/2022 and completed 6 weeks of antibiotics on 10/16/2022. Outpatient exacerbation 10/2023 and 12/2023. 10/24/2022 with CBC with white blood cell count 14.4, eosinophils 0%. 09/24/2022 CBC with white blood cell count 9.6, eosinophils 0.2%=19.2. recently she has been wearing 2.5 L at rest, 2.5 L with activity and 3 L at night. 09/03/2024: Patient called with bronchitis, shortness of breath, productive cough with brown phlegm and was treated with amoxicillin and prednisone. Patient tells me she improved but did not completely get back to her normal. 10/08/2024: Patient called and stated she is having cough, chest congestion, increased phlegm production, sore throat, using Mucinex and this helps her cough up her phlegm. She is having no fever no wheezes. She states this feels like her bronchitis. I will prescribe azithromycin x5 days. 10/12/2024 patient presented to the emergency department with shortness of breath, fevers and respiratory distress. Blood pressure is 179/79, heart rate 119, saturations on 3 L 77%. Placement was started on BiPAP. White blood cell count 7.8, eosinophils 0, creatinine 0.95, BNP 743, COVID, influenza RT PCR negative. RSV RT PCR positive. MRSA swab negative. ABG on BiPAP 7.26/51/106. CT scan of the chest showed severe panlobular emphysema, stable scarring right upper lobe and left upper lobe no pleural effusions and no ground-glass infiltrates. Patient was admitted to the hospital and treated empirically for RSV, pneumonia and COPD exacerbation. 10/13/2024: ABG on BiPAP 12/6 and 30% FiO2 was 7.32/42/105. 10/14/2024: The patient says she is better. She was only able to tolerate 10 minutes off the BiPAP to eat lunch. Currently she is on BiPAP rate of 4 breathing 20, pressures 12/6 with tidal volumes 447 and 30% FiO2 with saturations 98%. She said the BiPAP was uncomfortable and I changed her to a noninvasive ventilation with the AVAPS mode rate of 14, tidal volume 450, EPAP 5, minimal inspiratory pressure 6, maximal inspiratory pressure 25, rise of 1 fastest, inspiratory time 1.0, FiO2 28%. She said these settings were more comfortable. Today are white blood cell count is 19.0, creatinine 0.81. Approximately 1 hour later patient had worsening respiratory distress stating that the BiPAP for rate of 4 pressures 12/6 was better for her and she was switched back to this. 10/15/24: patient has remained on BiPAP overnight. She tolerated being off BiPAP and on 4 L for 25 minutes this morning prior to breakfast and for 20 minutes at breakfast time. Currently she denies shortness of breath and is on the BiPAP and says she is comfortable. BNP is 998. Procalcitonin is decreased from 0.3 on 10/13 to 0.1 today. she is awake and following commands. ? DATA: 10/14/2024: Echo Summary 1. Complete two-dimensional, color flow and Doppler transthoracic echocardiogram is performed. 2. There is normal biventricular size and systolic function. 3. There is no significant valvular disease. Left Ventricle The left ventricle is normal in size and systolic function. The left ventricular ejection fraction is visually estimated to be 65-70%. Right Ventricle The right ventricle is normal in size and systolic function. Left Atria The left atrium is normal size. Right Atria The right atrium is normal size. RVSP 37 10/12/24: EXAMINATION: CT diagnostic chest w con INDICATION: sob, copd hypoxia, cough COMPARISON: 08/19/2024; x-ray chest 10/12/2024. FINDINGS: CHEST: Thoracic aorta: No significant dilation. No dissection. Moderate atherosclerotic plaque. Lung parenchyma and airways: Biapical pleural scarring. Stable irregular nodular scarring in the bilateral upper lobes and superior segment of the left lower lobe. Scattered smaller areas of scarring peripherally and in the bases. Small foci of tree-in-bud like opacities in the right middle lobe and lingula. Emphysematous change. Calcified left lower lobe granuloma. Patent airways. Thoracic inlet, axillae and chest wall: No thyroid or soft tissue mass. No axillary lymphadenopathy. Mediastinum: No mass or lymphadenopathy. Heart and pericardium: Normal heart size. No pericardial effusion. Coronary artery calcifications: Mild. Pleura: No effusion or mass. Upper abdomen: Mild distal esophageal and gastric wall edema. Diffuse fatty infiltration of the liver. Thoracic bones: No acute osseous finding in the chest. Stable mild compression deformities in the thoracic spine. IMPRESSION: Scattered small, likely infectious/inflammatory foci, overlying a background of severe emphysematous change and largely stable areas of parenchymal scarring. Mild esophagitis/gastritis. Hepatic steatosis. 02/20/2024: EXAMINATION:CT diagnostic chest wo con INDICATION: Solitary pulmonary nodule. COMPARISON: Chest CT 09/08/2023, 03/09/2023, 09/08/2022 FINDINGS: There is severe emphysema. There is chronic scarring in left upper lobe. There are perihilar airspace opacities with volume loss in right upper lobe with improvement from 09/08/2023 and 03/09/2023. There are mild airspace opacities in superior segment left lower lobe with worsening from 09/08/2023. There is mild scarring in right lower lobe. There is a 7 mm nodule in left lower lobe, stable from 09/08/2022, likely benign. No pleural effusion. The heart size is normal. There are coronary artery calcifications. No pericardial effusion. Calcifications in the spleen are consistent with old granulomatous disease. There are stones in the kidneys measuring up to 6 mm on the right. There is mild chronic height loss of multiple vertebral bodies. There is mild thoracic spondylosis and severe lumbar spondylosis. IMPRESSION: 1. Continued improvement in perihilar airspace opacities in right upper lobe, consistent with chronic pneumonia. 2. Worsened mild airspace opacities in superior segment left lower lobe, consistent with pneumonia. 3. Severe emphysema. 08/19/24: CT Scan of the Chest without Contrast: Clinical Indication: COPD COMPARISON: 02/20/2024 Findings: There is no evidence of any significant mediastinal, hilar or axillary lymphadenopathy. There are extensive atherosclerotic calcifications of the coronary arteries and aorta. There is no evidence of pleural or pericardial effusion. Stable emphysema and biapical scarring with calcifications. Stable additional irregular nodule in the left upper lobe (axial image 29) disease. Stable irregular nodular scarring in the superior segment left lower lobe. Stable irregular consolidation in the right upper lobe in the perihilar region. Stable chronic scarring or atelectasis at the lingula. Probable irregular airspace opacity focally in the right lower lobe (axial image 64), likely focal infectious/inflammatory process or atelectatic change. Images through the upper abdomen reveal nonobstructing right renal stone. Stable mild compression deformities in the spine. Impression: Multiple areas of scarring and irregular consolidation the lungs are largely stable from prior exam, most prominent in the right perihilar region the upper lobe. Small new peripheral airspace opacity in the right lower lobe, most likely infectious/inflammatory in nature. Stable emphysema. infiltrates stable repeat CT scan in 12 months. 08/29/2023: Alpha 1 anti trypsin genotype MM, normal. 09/08/2023: CT Scan of the Chest without Contrast: Clinical Indication: COPD COMPARISON: 03/09/2023 Findings: There is no evidence of any significant mediastinal, hilar or axillary lymphadenopathy. The mediastinal soft tissues appear normal. There is no evidence of pleural or pericardial effusion. There is biapical scarring. Stable nodule in the superior segment left lower lobe. There is decreased size of nodule/consolidation at the right upper lobe, which currently measures up to approximately 3 cm in diameter. There is chronic scarring at the lingula, unchanged. There is moderate to severe emphysema. Stable additional left lower lobe nodule (axial image 51). Images through the upper abdomen reveal bilateral nonobstructing renal stones. Impression: Irregular somewhat nodular/masslike consolidation right upper lobe, highly decreased in extent from prior exam. This presumably represents slowly resolving pneumonia given interval decrease in size. Stable chronic scarring in the lingula with additional left pulmonary nodules, which also unchanged, as detailed above. Moderate to advanced emphysema. Bilateral nephrolithiasis. 05/23/2023: Overnight oximetry on 3 L nasal cannula.? Duration of recording is 7 hours and 24 minutes.? Baseline saturation 96%.? High saturation 99%.? Low saturation 89%.? Time with saturation less than or equal to 88% was 0 minutes.? Oxygen desaturation index is 3.91.? I will continue 3 L nasal cannula at night. 04/19/2023: Overnight oximetry on 2 L nasal cannula:? Recording duration 8 hours and 35 minutes.? Baseline saturation 95%.? High saturation 99%.? Low saturation 83%.? Time with saturation less than or equal to 88% was 5 minutes and 52 seconds (1.4% of monitored time).? Oxygen desaturation index 6.1. I will increase the oxygen to 3 L and repeat an overnight oximetry. ? ?03/03/2023:? Overnight oximetry on room air.? Duration 1 hour and 57 minutes.? Basal saturation 92.2%.? High saturation 99%.? Low saturation 81%.? Time with saturation less than or equal to 88% was 6 minutes and 15 seconds (5% of the monitored time).? Oxygen desaturation events is 34 events per hour.? I will order 2 L nasal cannula repeat overnight oximetry on 2 L nasal cannula. 03/09/23 EXAMINATION: CT diagnostic chest wo con ?INDICATION: Pneumonia, unspecified organism, left upper lobe. ?09/29/2022 CTA examination report of unchanged 8 mm pulmonary nodules of left lower lobe, likely sequelae of old granulomatous disease, but would consider 6-12 month follow ?COMPARISON: October 24, 2022 portable AP chest ?09/29/2022 CT pulmonary scan ?FINDINGS: Chronic bilateral apical fibrocalcific scarring. ?Severe emphysematous changes are again noted. ?There is contraction of the prominent consolidation of the left upper lobe and lingula since 09/29/2022 consistent with postinfectious scarring and left upper lobe atelectasis. ?Stable approximately 6 mm superior segment left lower lobe pulmonary nodule with attenuation up to 148 Hounsfield units, likely calcified pulmonary granuloma. Stable approximately 8 mm lateral left lower lobe pulmonary nodule attenuation up to 317 Hounsfield units, also likely a calcified pulmonary granuloma. There is focal lateral left lower lobe basilar discoid atelectasis or scarring. ?There is new prominent consolidation in the left upper lobe in the upper perihilar area since 09/29/2022, likely due to pneumonia. A smaller mass or focal consolidation is noted in the anterolateral right lower lobe measuring up to approximately 2.2 cm maximal dimension. Discoid atelectasis or scarring is noted in the right lower lobe. ?Normal heart size. Coronary artery calcification. No pericardial effusion. ?There is extensive thoracic aortic as well as great vessel calcification. No thoracic aortic aneurysm. ?No hilar or mediastinal mass lesion or lymphadenopathy is noted. ?Normal morphology of the adrenal glands. ?Hepatic and splenic calcified granulomas consistent with old granulomatous disease ?Small sliding hiatal hernia. ?Mild to moderate anterior wedge compression fracture of T11. ?No suspicious osteolytic or osteoblastic lesions are noted. ?IMPRESSION:? 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 home O2 assessment requires 2 L nasal cannula with rest and 2 L with ambulation.?10/06/22 overnight oximetry on 2 L nasal cannula with average saturation 97%, low saturation 93%, time with saturation less than or equal to 88% was 0 minutes. ?09/29/2022 EXAMINATION: CTA chest PE protocol ???INDICATION: Shortness of breath ???COMPARISON: 09/24/2022 and 12/14/2021 ???FINDINGS: ???Excellent contrast opacification of the pulmonary arteries. There is mild streak artifact from dense contrast in the superior vena cava and right atrium. No significant motion artifact yielding diagnostic left study which demonstrates no pulmonary embolism. Mild enlargement of the central pulmonary arteries consistent with pulmonary arterial hypertension. Severe emphysema with moderate chronic partially calcified biapical pleural-parenchymal scarring. ??No interval change in consolidation with volume loss and air bronchograms in the anterior segment of the left upper lobe and the lingula. Also unchanged is additional reticular and minimal patchy airspace opacities in the left lower lobe along the left hemidiaphragm. ???Again seen are a pulmonary nodules in the superior and posterior basilar segments of the left lower lobe unchanged since 12/14/21 and which along with a couple centrally calcified nodules in the left upper lobe and lingula which are now obscured by the consolidation likely sequela of old granulomatous disease. Small posterior layering left pleural effusion. Small amount of mucus in the trachea and right mainstem bronchus. There is complete opacification of the main right lower lobar and more peripheral bronchi consistent with mucous plugging as it is new since 08/30/2022 at which time there were no endobronchial lesions. ??Heart size is normal. Atherosclerotic coronary artery calcifications. No pericardial effusion. Thoracic aorta is normal in caliber. No pathologically enlarged thoracic lymphadenopathy. Is reflux of contrast into the inferior vena cava and hepatic veins consistent with tricuspid regurgitation. Couple splenic calcific lesions consistent with old granulomatous disease. Multiple tiny punctate calcification is at the left kidney consistent with renal stones and/or renal medullary nephrocalcinosis. Mild thoracic and severe upper lumbar spondylosis. ???IMPRESSION: ???1. No pulmonary embolism. ???2. Unchanged consolidation in the left upper lobe and lingula and minimal lung disease at the basilar left lower lobe consistent with ongoing multifocal pneumonia. ???3. Unchanged mucous plugging involving the bronchi throughout the right lower lobe. ???4. Severe emphysema. ???5. Small left pleural effusion. ???6. Unchanged 8 mm pulmonary nodules in the left lower lobe likely sequela of old granulomatous disease but would consider 6-12 month follow-up. ?09/24/2022 EXAMINATION: CTA chest PE protocol ???INDICATION: Shortness of breath. Right chest pressure. ???COMPARISON: Chest CT 09/08/2022, 12/14/21, PET/CT 03/01/17 ???FINDINGS: There is mild scarring at the lung apices. There is severe emphysema. There is mild atelectasis bilaterally. There are airspace opacities in left upper lobe with volume loss and air bronchograms. There are mild airspace opacities in anteromedial basal segment left lower lobe. These finds are consistent with pneumonia. There is an 8 mm nodule in superior segment left lower lobe, stable from 03/01/17, likely benign. There is an 8 mm nodule in left lower lobe, stable from 12/14/2021, probably benign. There is mucous plugging in the right-sided bronchi. There is a small left pleural effusion. The heart size is normal. There are coronary artery calcifications. No pericardial effusion. The central pulmonary arteries are enlarged, consistent with pulmonary arterial hypertension. There is no pulmonary embolus. Calcifications in the spleen are consistent with old granulomatous disease. There is mild thoracic spondylosis and severe lumbar spondylosis. ???IMPRESSION: ???1. No pulmonary embolus. ???2. Left-sided pneumonia predominantly involving left upper lobe. ???3. Right-sided mucous plugging. ???4. Severe emphysema. ???5. Small left pleural effusion. ???6. Stable 8 mm pulmonary nodule, probably benign. Noncontrast low-dose chest CT is recommended in 6 months. ? ??09/09/2022:? Home O2 assessment.? Rest room air saturation 87%.? 1 L nasal cannula rest saturation 93%.? Exercise 1 L nasal cannula saturation 90%.??Patient requires 1 L at rest and with ambulation. ??09/08/2022 CT Scan of the Chest without Contrast: ???Clinical Indication: Pneumonia ???COMPARISON: 08/30/2022 ???Findings: ???There is no evidence of any significant mediastinal, hilar or axillary lymphadenopathy. Coronary artery calcium case is are present. No aortic aneurysm. ???There is no evidence of pleural or pericardial effusion. ???Extensive consolidation of the lingula is again present. There has been significant improvement in the airspace disease in the posterior superior left upper lobe as compared to prior exam, but the extensive lingular consolidation is largely unchanged. Questionable focal areas of cavitation or necrosis within the consolidation. ???Small left pleural effusion is present. There is interstitial prominence and mild airspace disease dependently adjacent to the effusion and left lower lobe. ???Stable focal pulmonary nodules in the superior segment left lower lobe (axial image 31), and more inferiorly in the left lower lobe (axial image 58). Previously noted left upper lobe nodule may be obscured by consolidation. ???Right lung is clear. Moderate to severe emphysema present. ???Images through the upper abdomen reveal partially imaged nonobstructing right renal stone. Suspected medullary nephrocalcinosis bilaterally. ???Impression: Extensive lingular pneumonia is essentially unchanged from prior exam. Questionable areas of cavitation or necrosis within the consolidation. ???Consolidation seen previously in the posterior superior left upper lobe is essentially resolved. ???Small left pleural effusion. Dependent interstitial thickening and haziness adjacent to the effusion is present, which could reflect atelectatic change versus additional pneumonia. ???Stable left lower lobe pulmonary nodules, as detailed above. Moderate to severe emphysema. ?08/30/2022 ???Clinical Indication: Chest pain, shortness of breath ???CT Scan of the Chest with Contrast: ???COMPARISON: 12/14/2021 ???Findings: There is no evidence of any significant mediastinal, hilar or axillary lymphadenopathy. There is no filling defect in the pulmonary arterial tree to suggest pulmonary embolus. There is no evidence of aortic dissection or aneurysm. ???There is no evidence of pleural or pericardial effusion. ???There is extensive left upper lobe and lingular consolidation. Underlying diffuse moderate to severe emphysema present. Stable nodules in the left upper and lower lobes (axial images 53, 61). ???Images through the upper abdomen reveal no abnormalities. ???Impression:No evidence of pulmonary embolus, aortic dissection, or aortic aneurysm. ???Extensive left upper lobe pneumonia. Follow-up to radiographic resolution advised. ???Underlying moderate to severe diffuse emphysema. ?? 12/15/2021 EXAMINATION: CT diagnostic chest wo con ?INDICATION: Lung nodules ?COMPARISON: PET/CT, 03/01/2017 ?FINDINGS: There is severe emphysema. There are multiple calcified nodules of the lungs, consistent with old granulomatous disease. There is a stable 7 mm noncalcified nodule in the superior segment of the left lower lobe on image 37. There is a 7 mm nodule of the left lower lobe on image 64 which previously measured 3 mm. Scarring is noted in the lung apices. There is no pleural effusion or pneumothorax. The lungs are free of acute opacities. No pathologically enlarged thoracic lymph nodes are identified. The heart size is normal. Punctate calcifications in an otherwise normal spleen likely represent healed granulomatous disease. There is mild thoracic spondylosis. There is severe upper lumbar spondylosis. ?IMPRESSION: ?1. 7 mm nodule of the left lower lobe with increase in size since the prior examination, granulomatous disease versus malignancy. Recommend follow-up CT in 3-6 months. Multiple additional stable pulmonary nodules with and without calcification likely reflect old granulomatous disease. ?2. Severe emphysema. ??11/02/2021:? PFTs ??The test was performed and results interpreted in accordance with the 2019 and 2005 ATS/ERS Task Force guidelines respectively using the Global Lung Function Initiative-2012 reference equations. Patient demonstrated good effort and cooperation. Reproducibility criteria were met. The quality of the pre bronchodilator spirometry maneuver was Grade A and post bronchodilator spirometry maneuver was Grade B. ??Findings: ??Spirometry:? There is decreased maximal expiratory airflow at all lung volumes with concave expiratory flow tracing.? The contour the inspiratory flow tracing is normal.? The pre bronchodilator FVC is 1.68 L, 68% predicted.? The pre bronchodilator FEV1 is 0.74 L, 38% predicted.? The pre bronchodilator FEV1:? FVC ratio is 44%.? The post bronchodilator FVC is 2.22 L, representing a 32% increase.? The post bronchodilator FEV1 is 0.68 L, representing a 7% decrease.? The post bronchodilator FEV1:? FVC ratio is 31%. ??Plethysmography:? The total lung capacity is 8.60 L, representing 187% predicted.? The functional residual capacity is 7.53 L, 287% predicted.? The residual volume is 6.45 L, 307% predicted. ??Diffusing Capacity:? The diffusing capacity unadjusted for hemoglobin and carboxyhemoglobin is 4.4, 23% predicted.? Diffusing capacity adjusted for alveolar volume is 1.34, 31% predicted. ??My impression:?There is a severe obstructive abnormality?with significant improvement after inhaling a single dose of albuterol. The increase in residual volume is consistent with air trapping from an obstructive abnormality.? Hyperinflation is present as demonstrated by the increase in functional residual capacity and total lung capacity and is consistent with an obstructive abnormality. The diffusing capacity unadjusted for hemoglobin and carboxyhemoglobin is severely decreased and remains severely decreased when adjusted for alveolar volume. ??There are no prior studies for comparison Review of Systems Constitutional: Constitutional: Reports no additional constitutional complaints Eyes: Eyes: Reports no additional eye complaints ENT: Reports system reviewed and no additional complaints, except as documented Cardiovascular: Cardiovascular: Reports no additional cardiovascular complaints Respiratory: Respiratory: Reports no additional respiratory complaints Gastrointestinal: Gastrointestinal: Reports no additional gastrointestinal complaints Musculoskeletal: Musculoskeletal: Reports no additional musculoskeletal complaints Neurologic: Reports system reviewed and no additional complaints, except as documented Psychiatric: Psychiatric: Reports no additional psychiatric complaints Endocrine: Endocrine: Reports no additional endocrine complaints Hematologic/Lymphatic: Hematologic/Lymphatic: Reports no additional hematologic/lymphatic complaints Allergic/Immunologic: Allergic/Immunologic: Reports no additional allergic/immunologic complaints Exam Narrative: patient is on BiPAP. Const: General: cooperative, healthy appearing and comfortable Orientation/consciousness: oriented to person, oriented to place and oriented to time HENMT: Head: normal to inspection Ears: hearing grossly normal bilaterally Eyes: General: appearance normal, both eyes and all related structures Neck: Neck: normal visual inspection Chest: Chest palpation & inspection: normal inspection of the chest Resp: Effort & Inspection: normal respiratory effort and able to speak in complete sentences Auscultation: no crackles, no rales, no rhonchi, no wheezes and diminished lung sounds Cardio: Jugular venous distension: no JVD GI: Inspection: normal to inspection Skin: General skin exam: normal color Neuro: General: oriented to person, oriented to place and oriented to time Extrem: General: normal to inspection and no edema Psych: Appearance: grossly normal Objective Data Vital Signs Vital Signs: Vital Signs - 24 hr 10/14/24 11:50 10/14/24 12:00 10/14/24 12:00 Temperature Pulse Rate 110 H Respiratory Rate Blood Pressure Pulse Oximetry 98 100 Oxygen Delivery Nasal Cannula BiPAP Oxygen Flow Rate 4 Fraction of Inspired Oxygen 30 10/14/24 12:10 10/14/24 12:47 10/14/24 14:00 Temperature 36.7 C Pulse Rate 112 H 103 H 98 Respiratory Rate 21 H 26 H Blood Pressure 154/81 H Pulse Oximetry 98 100 Oxygen Delivery BiPAP Oxygen Flow Rate Fraction of Inspired Oxygen 10/14/24 15:06 10/14/24 15:13 10/14/24 15:29 Temperature Pulse Rate 101 H 105 H Respiratory Rate 22 H 24 H Blood Pressure Pulse Oximetry 95 Oxygen Delivery Non-Rebreather Mask Oxygen Flow Rate 15 Fraction of Inspired Oxygen 10/14/24 15:38 10/14/24 15:55 10/14/24 16:00 Temperature 36.3 C L Pulse Rate 107 H 111 H 110 H Respiratory Rate 20 28 H 27 H Blood Pressure 152/74 H Pulse Oximetry 96 96 100 Oxygen Delivery BiPAP Oxygen Flow Rate Fraction of Inspired Oxygen 10/14/24 16:00 10/14/24 16:00 10/14/24 18:00 Temperature Pulse Rate 113 H 105 H Respiratory Rate Blood Pressure Pulse Oximetry 100 Oxygen Delivery BiPAP Oxygen Flow Rate Fraction of Inspired Oxygen 30 10/14/24 19:29 10/14/24 19:29 10/14/24 19:29 Temperature Pulse Rate 106 H 106 H Respiratory Rate 20 20 Blood Pressure Pulse Oximetry 98 98 Oxygen Delivery BiPAP BiPAP Oxygen Flow Rate Fraction of Inspired Oxygen 28 10/14/24 20:00 10/14/24 20:00 10/14/24 20:00 Temperature Pulse Rate 112 H 111 H 111 H Respiratory Rate 22 H 28 H Blood Pressure Pulse Oximetry 99 Oxygen Delivery BiPAP Oxygen Flow Rate Fraction of Inspired Oxygen 30 10/14/24 20:02 10/14/24 20:33 10/14/24 22:00 Temperature 36.4 C L Pulse Rate 110 H 109 H 92 Respiratory Rate 32 H Blood Pressure 167/85 H Pulse Oximetry 99 Oxygen Delivery Oxygen Flow Rate Fraction of Inspired Oxygen 10/14/24 23:09 10/14/24 23:09 10/14/24 23:22 Temperature 36.4 C L Pulse Rate 99 99 100 Respiratory Rate 21 H 21 H 24 H Blood Pressure 153/84 H Pulse Oximetry 95 100 Oxygen Delivery BiPAP Oxygen Flow Rate Fraction of Inspired Oxygen 10/15/24 00:00 10/15/24 00:00 10/15/24 02:00 Temperature Pulse Rate 100 100 100 Respiratory Rate 20 Blood Pressure Pulse Oximetry 98 Oxygen Delivery BiPAP Oxygen Flow Rate Fraction of Inspired Oxygen 30 10/15/24 03:35 10/15/24 03:35 10/15/24 03:45 Temperature Pulse Rate 97 97 100 Respiratory Rate 16 16 20 Blood Pressure Pulse Oximetry 98 Oxygen Delivery BiPAP Oxygen Flow Rate Fraction of Inspired Oxygen 10/15/24 04:00 10/15/24 04:00 10/15/24 04:34 Temperature 36.5 C Pulse Rate 101 H 101 H 104 H Respiratory Rate 20 38 H Blood Pressure 171/85 H Pulse Oximetry 98 99 Oxygen Delivery BiPAP Oxygen Flow Rate Fraction of Inspired Oxygen 30 10/15/24 05:40 10/15/24 05:40 10/15/24 07:31 Temperature Pulse Rate 108 H 104 H Respiratory Rate 26 H Blood Pressure Pulse Oximetry 100 99 Oxygen Delivery Nasal Cannula BiPAP Oxygen Flow Rate 4 Fraction of Inspired Oxygen 28 10/15/24 07:31 10/15/24 07:37 10/15/24 08:00 Temperature Pulse Rate 108 H 108 H 116 H Respiratory Rate 22 H 22 H Blood Pressure Pulse Oximetry 99 Oxygen Delivery BiPAP Oxygen Flow Rate Fraction of Inspired Oxygen 10/15/24 08:09 10/15/24 08:41 10/15/24 10:00 Temperature 36.5 C Pulse Rate 120 H 116 H 110 H Respiratory Rate 19 Blood Pressure 173/94 H Pulse Oximetry 100 Oxygen Delivery Oxygen Flow Rate Fraction of Inspired Oxygen Intake/Output Intake/Output: Intake & Output 10/12/24 10/13/24 10/14/24 10/15/24 23:59 23:59 23:59 23:59 Intake Total 1800 2130 2609 318 Output Total 500 1000 200 Balance 1800 1630 1609 118 Meds/Results Medications: Active Medications Generic Name Dose Route Start Last Admin Trade Name Freq PRN Reason Stop Dose Admin Acetaminophen 650 mg 10/12/24 20:30 10/14/24 20:35 Acetaminophen 325 Mg Tablet PO 650 mg Q4H PRN Administration Mild Pain (1-3) or Fever Dextrose 12.5 gm 10/12/24 20:30 Dextrose 50% 25 Gm/50 Ml Syringe IV PUSH PRN PRN Hypoglycemia Protocol Diltiazem HCl 120 mg 10/13/24 09:00 10/15/24 08:43 Diltiazem Hcl Cd 120 Mg Cap.24hr PO 120 mg DAILY ANIYA Administration Flecainide Acetate 100 mg 10/13/24 17:40 10/15/24 08:41 Flecainide Acetate 100 Mg Tablet PO 100 mg Q12HR ANIYA Administration Glucose 15 gm 10/12/24 20:30 Glucose Oral Gel 15 Gm Of Glucse In 37.5 Gm Tube PO PRN PRN Hypoglycemia Protocol Guaifenesin 1,200 mg 10/14/24 21:00 10/15/24 08:42 Guaifenesin 12 Hr 600 Mg Tabcr PO 1,200 mg Q12HR ANIYA Administration Ceftriaxone Sodium 1 gm in 50 mls @ 100 mls/hr 10/13/24 18:00 10/14/24 17:04 Rocephin 1 Gm/Ns 50 Ml IVPB 100 mls/hr Q24H ANIYA Administration Dextrose 1,000 mls @ 100 mls/hr 10/12/24 20:30 Dextrose 5% 1,000 Ml IVPB PRN PRN Hypoglycemia Protocol Doxycycline Hyclate 100 mg in 100 mls @ 100 mls/hr 10/13/24 21:00 10/15/24 08:44 Vibramycin 100 Mg/Ns 100 Ml IVPB 100 mls/hr Q12H ANIYA Administration Ipratropium [place] 0.5 mg 10/13/24 05:46 10/13/24 06:00 Ipratropium Br 0.02% Inh Soln 0.5 Mg/2.5 Ml Vial INHALATION 0.5 mg Q6HRT PRN Administration Shortness Of Breath Ipratropium [place] 0.5 mg 10/14/24 16:00 10/15/24 07:30 Ipratropium Br 0.02% Inh Soln 0.5 Mg/2.5 Ml Vial INHALATION 0.5 mg Q4HRT ANIYA Administration Levalbuterol HCl 1.25 mg 10/13/24 05:46 10/13/24 06:00 Levalbuterol Neb 1.25 Mg/3 Ml INHALATION 1.25 mg Q6HRT PRN Administration Shortness Of Breath Or Wheezing Levalbuterol HCl 0.63 mg 10/14/24 16:00 10/15/24 07:31 Levalbuterol Neb 1.25 Mg/3 Ml INHALATION 0.63 mg Q4HRT ANIYA Administration Magnesium Oxide 400 mg 10/15/24 09:00 10/15/24 08:42 Magnesium Oxide 400 Mg Tablet PO 400 mg DAILY ANIYA Administration Methylprednisolone Sodium Succinate 20 mg 10/14/24 18:00 10/15/24 05:41 Methylprednisolone Sod Succ 40 Mg Vial IV PUSH 20 mg Q6HR ANIYA Administration Mirabegron 25 mg 10/13/24 09:00 10/15/24 08:42 Mirabegron 25 Mg Er Tablet PO 25 mg DAILY ANIYA Administration Perflutren Lipid Microsphere 0 ml 10/13/24 15:22 Perflutren Lipid Microspheres 1.5 Ml Vial Diluted To 10 Ml Total Volume IV PUSH 10/16/24 15:22 ONCE PRN adequate visualization Protocol Pravastatin Sodium 20 mg 10/12/24 23:40 10/14/24 20:34 Pravastatin Sodium 20 Mg Tablet PO 20 mg HS ANIYA Administration Rivaroxaban 15 mg 10/14/24 21:00 10/14/24 22:44 Rivaroxaban 15 Mg Tablet PO 15 mg 2100 ANIYA Administration Radiology Results: ITS Impressions Chest X-Ray 10/12/24 17:55 IMPRESSION: No acute cardiopulmonary process. Chest CT 10/12/24 19:30 IMPRESSION: Scattered small, likely infectious/inflammatory foci, overlying a background of severe emphysematous change and largely stable areas of parenchymal scarring. Mild esophagitis/gastritis. Hepatic steatosis. Labs Labs: Laboratory Results - last 24 hr 10/14/24 10/15/24 12:26 04:46 WBC 19.0 H RBC 4.01 L Hgb 12.5 Hct 39.3 MCV 98.0 MCH 31.2 MCHC 31.8 L RDW 13.0 Plt Count 210 MPV 10.8 H Sodium 146 H Potassium 3.6 Chloride 111 H Carbon Dioxide 21 L Anion Gap 14 H BUN 23 H Creatinine 0.81 Estim Creat Clear Calc 38 Estimated GFR > 60 Glucose 161 H Calcium 9.1 NT-Pro-B Natriuret Pep 998 H Procalcitonin 0.1
--- NOTE | 2024-10-15 15:07 | PC.NURSE ---
On 10/15/24, the student, [Livia Mckinney ], provided care and completed [facility] documentation on this patient. I have reviewed the student's documentation and agree with the findings.
[2024-10-15] MEDS: PRAVASTATIN SODIUM 20 MG TABLET PO (21:24)
[2024-10-15] MEDS: RIVAROXABAN 15 MG TABLET PO (21:24)
[2024-10-15] MEDS: ACETAMINOPHEN 325 MG TABLET 650 MG PO (21:24)
[2024-10-16] VITALS (30 sets, daily range): BP systolic 147–164; BP diastolic 78–84; PULSE 83–106; RESP 15–31; TEMP 36.6–37.2; O2SAT 6–99
[2024-10-16] MEDS: IPRATROPIUM BR 0.02% INH SOLN 0.5 MG/2.5 ML VIAL INHALATION ×5 (04:26→21:13)
[2024-10-16] MEDS: LEVALBUTEROL NEB 1.25 MG/3 ML 0.63 MG INHALATION ×5 (04:26→21:13)
[2024-10-16] MEDS: FLECAINIDE ACETATE 100 MG TABLET PO ×2 (09:18→20:55)
[2024-10-16] MEDS: guaiFENesin 12 HR 600 MG TABCR 1200 MG PO ×2 (09:18→20:54)
[2024-10-16] MEDS: dilTIAZem HCL CD 120 MG CAP.24HR PO (09:18)
[2024-10-16] MEDS: MIRABEGRON 25 MG ER TABLET PO (09:19)
[2024-10-16] MEDS: MAGNESIUM OXIDE 400 MG TABLET PO (09:19)
[2024-10-16] MEDS: predniSONE 20 MG TABLET 40 MG PO (09:19)
[2024-10-16] MEDS: DOXYCYCLINE 100 MG/NS 100 ML 100 MG/100 ML BAG IVPB ×2 (09:20→20:52)
--- NOTE | 2024-10-16 09:26 | P.PNIM_ITS ---
Progress Note: A&P Assessment and Plan (1) Lactic acidosis: Code(s): E87.20 - Acidosis, unspecified Status: Acute (2) Sepsis: Code(s): A41.9 - Sepsis, unspecified organism Status: Acute (3) Acute on chronic respiratory failure with hypoxia and hypercapnia: Code(s): J96.21 - Acute and chronic respiratory failure with hypoxia; J96.22 - Acute and chronic respiratory failure with hypercapnia Status: Acute (4) Respiratory syncytial virus (RSV): Qualifiers: RSV infection type: unspecified Qualified Code(s): B33.8 - Other specified viral diseases Code(s): B33.8 - Other specified viral diseases Status: Acute Plan This is a 74-year-old female with a past medical history prior tobacco abuse, COPD and chronic respiratory failure on 3 L nasal cannula continuously, atrial fibrillation on Xarelto, hypertension, hypercholesterolemia, polycythemia secondary to hypoxia, pulmonary nodule. She is accompanied by her who she lives with and her daughter. The patient quit smoking 2 years prior and has not been hospitalized since then either. She has been in her normal state of health and does not frequently use her inhalers or nebulizers. In the past 2 days she has used them multiple times due to shortness of breath and a cough productive of green/whitfield sputum. She denies chest pain. On 10/11/2024 the patient presents to [facility] ER due to severe difficulty breathing. ER nurse practitioner note patient was tripoding on arrival. Tachypnea with respiratory rate 24-27. Vitals otherwise stable. WBC 14.4, hemoglobin 15.4, . Acute on chronic respiratory failure with hypoxia and hypercapnia Patient has chronic respiratory failure Upon arrival in the ED, patient has worsening O2 desaturation, ABG demonstrating pH 7.264, pCO2 50.9, PO2 105.2 on BiPAP, bicarb 22.5 patient was placed on BiPAP upon arrival, patient's need BiPAP today COPD exacerbation RSV infection. Suspected bacterial pneumonia on vancomycin ceftriaxone and azithromycin, Solu-Medrol 125 mg IV push x1, 2 L normal saline bolus, Start DuoNeb scheduled, albuterol nebulizer. Received Methylprednisolone completed treatment on October 15 Finish antibiotic treatment 10/16 Consult professor of english for evaluation treatment Acute renal failure due to Dehydration and sepsis BUN 25, serum creatinine 1.28, baseline creatinine 0.7 Received fluid resuscitation Kidney function improving Discontinue normal saline 75 mL/hour Severe sepsis without shock lactic acidosis with end-organ damage, acute hypoxic respiratory failure and acute kidney injury Paroxysmal atrial fibrillation on Xarelto, Cardizem 120 mg daily p.o. And flecainide 100 mg b.i.d. p.o. Follow-up echocardiogram 1. Complete two-dimensional, color flow and Doppler transthoracic echocardiogram is performed. 2. There is normal biventricular size and systolic function. 3. There is no significant valvular disease. Chronic hypertension Stable Constipation Start Senokot S 1 tablet b.i.d., MiraLax 1 packet daily Restart ELECTRICAL TESTER BATTERY Xarelto. Patient wishes to be full code. Home medications will be restarted as appropriate if indicated. Subjective Date/time seen: 10/16/24 09:26 Interval history: I saw examined patient today. Patient still has shortness breath, cough with scant phlegm. Patient is on BIPAP. Patient feels improving slowly. Patient denies chest pain abdomen pain nausea vomiting diarrhea but patient has constipation Exam Narrative: GENERAL: Ill-appearing in no acute distress. Moderate malnutrition - EYES: EOMI. Anicteric. - HENT: Moist mucous membranes. - LUNGS: Distant breath sound bilateral , scattered wheezing, coarse breath carl nd bilateral base, - CARDIOVASCULAR: Regular rate and rhyth m. No murmur. No JVD. - ABDOMEN: Soft, non-tender and non-dist ended. No palpable masses. - EXTREMITIES: No edema. Peripheral puls es 2+. Non-tender. - NEUROLOGIC: No focal neurological defi cits. CN II-XII grossly intact. General weakness - PSYCHIATRIC: Awake, Alert and oriented x 3. Appropriate mood and affect. - SKIN: No rashes or lesions. Warm. - LYMPH: No cervical lymphadenopathy. Objective Data Vital Signs Vital Signs: Vital Signs - 24 hr 10/15/24 10:00 10/15/24 12:00 10/15/24 12:00 Temperature Pulse Rate 110 H 111 H 110 H Respiratory Rate 27 H Blood Pressure Pulse Oximetry 98 Oxygen Delivery BiPAP Oxygen Flow Rate Fraction of Inspired Oxygen 28 10/15/24 12:03 10/15/24 12:05 10/15/24 12:19 Temperature Pulse Rate 112 H 112 H 113 H Respiratory Rate 39 H 31 H 37 H Blood Pressure Pulse Oximetry 97 Oxygen Delivery BiPAP Oxygen Flow Rate Fraction of Inspired Oxygen 10/15/24 12:22 10/15/24 14:00 10/15/24 15:34 Temperature 98.7 F 97.6 F Pulse Rate 111 H 102 H 99 Respiratory Rate 27 H 28 H Blood Pressure 165/82 H 163/80 H Pulse Oximetry 98 96 Oxygen Delivery Oxygen Flow Rate Fraction of Inspired Oxygen 10/15/24 16:00 10/15/24 16:00 10/15/24 16:28 Temperature Pulse Rate 104 H 106 H 104 H Respiratory Rate 28 H 28 H Blood Pressure Pulse Oximetry 98 98 Oxygen Delivery BiPAP BiPAP Oxygen Flow Rate Fraction of Inspired Oxygen 28 10/15/24 16:28 10/15/24 16:28 10/15/24 18:00 Temperature Pulse Rate 108 H 108 H Respiratory Rate 28 H Blood Pressure Pulse Oximetry 98 Oxygen Delivery BiPAP Oxygen Flow Rate Fraction of Inspired Oxygen 40 10/15/24 20:00 10/15/24 20:00 10/15/24 20:36 Temperature Pulse Rate 99 98 97 Respiratory Rate 15 15 Blood Pressure Pulse Oximetry 97 97 Oxygen Delivery BiPAP BiPAP Oxygen Flow Rate Fraction of Inspired Oxygen 40 10/15/24 20:36 10/15/24 20:47 10/15/24 20:57 Temperature 97.7 F Pulse Rate 97 105 H 95 Respiratory Rate 15 20 24 H Blood Pressure 157/79 H Pulse Oximetry 96 Oxygen Delivery Oxygen Flow Rate Fraction of Inspired Oxygen 10/15/24 21:23 10/15/24 21:47 10/15/24 23:28 Temperature Pulse Rate 100 102 H 87 Respiratory Rate 12 Blood Pressure Pulse Oximetry 95 Oxygen Delivery BiPAP Oxygen Flow Rate Fraction of Inspired Oxygen 10/15/24 23:28 10/15/24 23:55 10/15/24 23:55 Temperature Pulse Rate 87 87 87 Respiratory Rate 12 22 H Blood Pressure Pulse Oximetry 97 Oxygen Delivery BiPAP Oxygen Flow Rate Fraction of Inspired Oxygen 40 10/15/24 23:56 10/16/24 04:00 10/16/24 04:00 Temperature 97.5 F L Pulse Rate 91 96 92 Respiratory Rate 21 H 23 H Blood Pressure 154/78 H Pulse Oximetry 97 97 Oxygen Delivery BiPAP Oxygen Flow Rate Fraction of Inspired Oxygen 40 10/16/24 04:26 10/16/24 04:26 10/16/24 04:30 Temperature Pulse Rate 96 96 101 H Respiratory Rate 23 H 23 H 21 H Blood Pressure Pulse Oximetry 97 Oxygen Delivery BiPAP Oxygen Flow Rate Fraction of Inspired Oxygen 10/16/24 04:48 10/16/24 06:00 10/16/24 06:00 Temperature 98.9 F Pulse Rate 86 105 H 105 H Respiratory Rate 30 H 26 H Blood Pressure 164/84 H Pulse Oximetry 98 98 Oxygen Delivery Nasal Cannula Oxygen Flow Rate 3 Fraction of Inspired Oxygen 10/16/24 06:42 10/16/24 08:00 10/16/24 08:06 Temperature 98 F Pulse Rate 105 H 96 Respiratory Rate 26 H 31 H Blood Pressure 159/83 H Pulse Oximetry 98 6 L 97 Oxygen Delivery BiPAP BiPAP Oxygen Flow Rate Fraction of Inspired Oxygen 40 25 10/16/24 08:06 10/16/24 08:10 10/16/24 09:18 Temperature Pulse Rate 99 99 106 H Respiratory Rate 20 26 H Blood Pressure Pulse Oximetry 96 Oxygen Delivery BiPAP Oxygen Flow Rate Fraction of Inspired Oxygen Intake/Output Intake/Output: Intake & Output 10/13/24 10/14/24 10/15/24 10/16/24 23:59 23:59 23:59 23:59 Intake Total 2130 2659 2003 240 Output Total 500 1000 650 400 Balance 1630 1659 1353 -160 Meds/Results Medications: Active Medications Generic Name Dose Route Start Last Admin Trade Name Freq PRN Reason Stop Dose Admin Acetaminophen 650 mg 10/12/24 20:30 10/15/24 21:24 Acetaminophen 325 Mg Tablet PO 650 mg Q4H PRN Administration Mild Pain (1-3) or Fever Dextrose 12.5 gm 10/12/24 20:30 Dextrose 50% 25 Gm/50 Ml Syringe IV PUSH PRN PRN Hypoglycemia Protocol Diltiazem HCl 120 mg 10/13/24 09:00 10/16/24 09:18 Diltiazem Hcl Cd 120 Mg Cap.24hr PO 120 mg DAILY ANIYA Administration Flecainide Acetate 100 mg 10/13/24 17:40 10/16/24 09:18 Flecainide Acetate 100 Mg Tablet PO 100 mg Q12HR ANIYA Administration Glucose 15 gm 10/12/24 20:30 Glucose Oral Gel 15 Gm Of Glucse In 37.5 Gm Tube PO PRN PRN Hypoglycemia Protocol Guaifenesin 1,200 mg 10/14/24 21:00 10/16/24 09:18 Guaifenesin 12 Hr 600 Mg Tabcr PO 1,200 mg Q12HR ANIYA Administration Ceftriaxone Sodium 1 gm in 50 mls @ 100 mls/hr 10/13/24 18:00 10/15/24 17:45 Rocephin 1 Gm/Ns 50 Ml IVPB Infused Q24H ANIYA Infusion Dextrose 1,000 mls @ 100 mls/hr 10/12/24 20:30 Dextrose 5% 1,000 Ml IVPB PRN PRN Hypoglycemia Protocol Doxycycline Hyclate 100 mg in 100 mls @ 100 mls/hr 10/13/24 21:00 10/16/24 09:20 Vibramycin 100 Mg/Ns 100 Ml IVPB 100 mls/hr Q12H ANIYA Administration Ipratropium [place] 0.5 mg 10/13/24 05:46 10/13/24 06:00 Ipratropium Br 0.02% Inh Soln 0.5 Mg/2.5 Ml Vial INHALATION 0.5 mg Q6HRT PRN Administration Shortness Of Breath Ipratropium [place] 0.5 mg 10/14/24 16:00 10/16/24 08:06 Ipratropium Br 0.02% Inh Soln 0.5 Mg/2.5 Ml Vial INHALATION 0.5 mg Q4HRT ANIYA Administration Levalbuterol HCl 1.25 mg 10/13/24 05:46 10/13/24 06:00 Levalbuterol Neb 1.25 Mg/3 Ml INHALATION 1.25 mg Q6HRT PRN Administration Shortness Of Breath Or Wheezing Levalbuterol HCl 0.63 mg 10/14/24 16:00 10/16/24 08:06 Levalbuterol Neb 1.25 Mg/3 Ml INHALATION 0.63 mg Q4HRT ANIYA Administration Magnesium Oxide 400 mg 10/15/24 09:00 10/16/24 09:19 Magnesium Oxide 400 Mg Tablet PO 400 mg DAILY ANIYA Administration Mirabegron 25 mg 10/13/24 09:00 10/16/24 09:19 Mirabegron 25 Mg Er Tablet PO 25 mg DAILY ANIYA Administration Perflutren Lipid Microsphere 0 ml 10/13/24 15:22 Perflutren Lipid Microspheres 1.5 Ml Vial Diluted To 10 Ml Total Volume IV PUSH 10/16/24 15:22 ONCE PRN adequate visualization Protocol Pravastatin Sodium 20 mg 10/12/24 23:40 10/15/24 21:24 Pravastatin Sodium 20 Mg Tablet PO 20 mg HS ANIYA Administration Prednisone 40 mg 10/16/24 08:00 10/16/24 09:19 Prednisone 20 Mg Tablet PO 40 mg DAILY@0800 ANIYA Administration Rivaroxaban 15 mg 10/14/24 21:00 10/15/24 21:24 Rivaroxaban 15 Mg Tablet PO 15 mg 2100 ANIYA Administration Radiology Results: ITS Impressions Chest CT 10/12/24 19:30 IMPRESSION: Scattered small, likely infectious/inflammatory foci, overlying a background of severe emphysematous change and largely stable areas of parenchymal scarring. Mild esophagitis/gastritis. Hepatic steatosis. Chest X-Ray 10/16/24 08:47 Impression: 1: No acute cardiopulmonary disease. No significant interval change.
--- NOTE | 2024-10-16 09:46 | P.PNPL_ITS ---
Progress Note: A&P Assessment and Plan (1) Respiratory syncytial virus (RSV): Qualifiers: RSV infection type: unspecified Qualified Code(s): B33.8 - Other specified viral diseases Code(s): B33.8 - Other specified viral diseases Status: Acute Assessment and Plan: Patient tested positive for RSV 10/12/24. Patient is had worsening work of breathing without hypercarbic respiratory failure on BiPAP. Most recent ABG on BiPAP 12/6 on 10/13/24 was 7.32/42/105. 10/14/2024: The patient says she is better. She was only able to tolerate 10 minutes off the BiPAP to eat lunch. Currently she is on BiPAP rate of 4 breathing 20, pressures 12/6 with tidal volumes 447 and 30% FiO2 with saturations 98%. She said the BiPAP was uncomfortable and I changed her to a noninvasive ventilation with the AVAPS mode rate of 14, tidal volume 450, EPAP 5, minimal inspiratory pressure 6, maximal inspiratory pressure 25, rise of 1 fastest, inspiratory time 1.0, FiO2 28%. She said these settings were more comfortable. Today are white blood cell count is 19.0, creatinine 0.81. Approximately 1 hour later patient had worsening respiratory distress stating that the BiPAP for rate of 4 pressures 12/6 was better for her and she was switched back to this. Plan: Treatment for RSV pneumonia is supportive. Initially did better with AVAPS mode but then requested to go back on straight BiPAP as this was more comfortable for her. Agree with treatment for other possible conditions including COPD exacerbation, bacterial pneumonia, and cardiac conditions. Echocardiogram with normal biventricular size and function. No significant valvular disease, left atrium is normal. The right atrium is normal. RVSP 37%. 10/15/24: patient has remained on BiPAP overnight. She tolerated being off BiPAP and on 4 L for 25 minutes this morning prior to breakfast and for 20 minutes at breakfast time. Currently she denies shortness of breath and is on the BiPAP and says she is comfortable. BNP is 998. Procalcitonin is decreased from 0.3 on 10/13 to 0.1 today. she is awake and following commands. Plan: Continue supportive treatment with BiPAP for work of breathing. goal saturation 90-94% was supplemental oxygen as required. She is empirically being treated for bacterial infection with ceftriaxone day 4 and azithromycin followed by doxycycline day 4. She is afebrile with no leukocytosis and her procalcitonin is decreasing. Will discontinue antibiotics tomorrow. 10/16/24: Overall patient tells me she is little bit better. She has remained essentially BiPAP dependent other than taking this off for 20-30 minutes a time 4 times yesterday To eat meals and take medicines. currently she is on BiPAP rate of 4 breathing 22, 08/09, tidal volume 541 25% FiO2 saturations 99%. When she comes off of BiPAP she oxygenates on 4 L nasal cannula. she is afebrile.Her white blood cell count 19.0. Chest x-ray with no focal infiltrates, no pleural effusions, no pneumothorax. No change from 10/12/2024. Plan: Continue supportive care treatment with BiPAP for work of breathing. Goal saturation 90-94%. day 5 of ceftriaxone and doxycycline, No evidence of bacterial infection and will discontinue after today's dose. Discussed with Dr. Abbasi, will follow with you. (2) COPD (chronic obstructive pulmonary disease): Code(s): J44.9 - Chronic obstructive pulmonary disease, unspecified Status: Acute Assessment and Plan: Patient with a history of 47 pack year tobacco use, Alpha 1 anti trypsin genotype MM, PFTs 11/02/2021 with a severe obstructive abnormality, FEV 1 is 0.74 L, 38% predicted, bronchodilator response, air trapping, hyperinflation and a DLCO that was severely decreased when adjusted for alveolar volume, 1st CT s can of the chest in our system from 12/14/2021 with severe panlobular emphysema throughout all lung [place], hypoxic respiratory failure requiring 2 L at rest, with ambulation and with sleep. No evidence of hypercarbic respiratory failure dating back to 01/17/2022 with a blood gas of 7.36/43/64 on room air. Echocardiogram with tricuspid regurgitation peak gradient 42 on 06/11/2022. She developed a multifocal necrotic pneumonia on 08/30/2022 and completed 6 weeks of antibiotics on 10/16/2022. Outpatient exacerbation 10/2023 and 12/2023. 10/24/2022 with CBC with white blood cell count 14.4, eosinophils 0%. 09/24/2022 CBC with white blood cell count 9.6, eosinophils 0.2%=19.2. 10/12/2024: BNP 743. 10/13/24: Procalcitonin 0.3. 10/14/24: Plan: Patient had been on Solu-Medrol 40 mg IV q.6 hours, day 3 of systemic steroids. I will decrease to 20 mg IV q.6. Continue ipratropium and levalbuterol and will increase the frequency to q.4 hours. Discontinue trelegy as patient is on maximal dose beta agonist, muscarinic antagonists and steroids. I will place the patient on guaifenesin 1200 mg p.o. b.i.d. and give her 2 600 mg tablets because she cannot swallow the 1200 mg tablets. Patient currently treated for bacterial pneumonia with ceftriaxone day 3, and azithromycin 1 dose on 10/12/2024 followed by doxycycline now day 2. I will send urine for Legionella, urine for pneumococcal and serum mycoplasma IgM. MRSA swab is negative. weight today is 46.7 with an admission weight of 49 . since admission she is 5.1 L positive. will check BnP on 10/15/2024. 10/15 Patient has no wheezing today. Plan: Today is day 4 of systemic steroids and I will give her 40 mg of prednisone tomorrow and then discontinue. Continue ipratropium and levalbuterol q.4 hours. Continue guaifenesin 1200 mg p.o. q.12 hours. 10/16/24: Mild expiratory wheezes today. Swelling of the left upper extremity Plan: Today is day 5 of systemic steroids and currently on 40 mg p.o.. Will continue. Continue ipratropium and levalbuterol nebulizers q.4 hours. Continue guaifenesin 1200 mg p.o. q.12 hours. I will order left upper extremity Doppler. Subjective Date/time seen: 10/16/24 09:46 Interval history: 10/14/2024: This is a new pulmonary consult for COPD with RSV pneumonia. Patient has a history of GOLD grade 3 group B COPD On home oxygen, atrial fibrillation on Xarelto, hypertension, hyperlipidemia and followed in the [facility] in last seen on 06/26/2024: Regarding her COPD, patient with a history of 47 pack year tobacco use, Alpha 1 anti trypsin genotype MM, PFTs 11/02/2021 with a severe obstructive abnormality, FEV 1 is 0.74 L, 38% predicted, bronchodilator response, air trapping, hyperinflation and a DLCO that was severely decreased when adjusted for alveolar volume, 1st CT scan of the chest in our system from 12/14/2021 with severe panlobular emphysema throughout all lung christ[place], hypoxic respiratory failure requiring 2 L at rest, with ambulation and with sleep. No evidence of hypercarbic respiratory failure dating back to 01/17/2022 with a blood gas of 7.36/43/64 on room air. Echocardiogram with tricuspid regurgitation peak gradient 42 on 06/11/2022. She developed a multifocal necrotic pneumonia on 08/30/2022 and completed 6 weeks of antibiotics on 10/16/2022. Outpatient exacerbation 10/2023 and 12/2023. 10/24/2022 with CBC with white blood cell count 14.4, eosinophils 0%. 09/24/2022 CBC with white blood cell count 9.6, eosinophils 0.2%=19.2. recently she has been wearing 2.5 L at rest, 2.5 L with activity and 3 L at night. 09/03/2024: Patient called with bronchitis, shortness of breath, productive cough with brown phlegm and was treated with amoxicillin and prednisone. Patient tells me she improved but did not completely get back to her normal. 10/08/2024: Patient called and stated she is having cough, chest congestion, increased phlegm production, sore throat, using Mucinex and this helps her cough up her phlegm. She is having no fever no wheezes. She states this feels like her bronchitis. I will prescribe azithromycin x5 days. 10/12/2024 patient presented to the emergency department with shortness of breath, fevers and respiratory distress. Blood pressure is 179/79, heart rate 119, saturations on 3 L 77%. Placement was started on BiPAP. White blood cell count 7.8, eosinophils 0, creatinine 0.95, BNP 743, COVID, influenza RT PCR negative. RSV RT PCR positive. MRSA swab negative. ABG on BiPAP 7.26/51/106. CT scan of the chest showed severe panlobular emphysema, stable scarring right upper lobe and left upper lobe no pleural effusions and no ground-glass infiltrates. Patient was admitted to the hospital and treated empirically for RSV, pneumonia and COPD exacerbation. 10/13/2024: ABG on BiPAP 12/6 and 30% FiO2 was 7.32/42/105. 10/14/2024: The patient says she is better. She was only able to tolerate 10 minutes off the BiPAP to eat lunch. Currently she is on BiPAP rate of 4 breathing 20, pressures 12/6 with tidal volumes 447 and 30% FiO2 with saturations 98%. She said the BiPAP was uncomfortable and I changed her to a noninvasive ventilation with the AVAPS mode rate of 14, tidal volume 450, EPAP 5, minimal inspiratory pressure 6, maximal inspiratory pressure 25, rise of 1 fastest, inspiratory time 1.0, FiO2 28%. She said these settings were more comfortable. Today are white blood cell count is 19.0, creatinine 0.81. Approximately 1 hour later patient had worsening respiratory distress stating that the BiPAP for rate of 4 pressures 12/6 was better for her and she was switched back to this. 10/15/24: patient has remained on BiPAP overnight. She tolerated being off BiPAP and on 4 L for 25 minutes this morning prior to breakfast and for 20 minutes at breakfast time. Currently she denies shortness of breath and is on the BiPAP and says she is comfortable. BNP is 998. Procalcitonin is decreased from 0.3 on 10/13 to 0.1 today. she is awake and following commands. 10/16/24: Overall patient tells me she is little bit better. She has remained essentially BiPAP dependent other than taking this off for 20-30 minutes a time 4 times yesterday To eat meals and take medicines. currently she is on BiPAP rate of 4 breathing 22, 12/6, tidal volume 541 25% FiO2 saturations 99%. When she comes off of BiPAP she oxygenates on 4 L nasal cannula. she is afebrile.Her white blood cell count 19.0. Chest x-ray with no focal infiltrates, no pleural effusions, no pneumothorax. No change from 10/12/2024. ? DATA: 10/14/2024: Echo Summary 1. Complete two-dimensional, color flow and Doppler transthoracic echocardiogram is performed. 2. There is normal biventricular size and systolic function. 3. There is no significant valvular disease. Left Ventricle The left ventricle is normal in size and systolic function. The left ventricular ejection fraction is visually estimated to be 65-70%. Right Ventricle The right ventricle is normal in size and systolic function. Left Atria The left atrium is normal size. Right Atria The right atrium is normal size. RVSP 37 10/12/24: EXAMINATION: CT diagnostic chest w con INDICATION: sob, copd hypoxia, cough COMPARISON: 08/19/2024; x-ray chest 10/12/2024. FINDINGS: CHEST: Thoracic aorta: No significant dilation. No dissection. Moderate atherosclerotic plaque. Lung parenchyma and airways: Biapical pleural scarring. Stable irregular nodular scarring in the bilateral upper lobes and superior segment of the left lower lobe. Scattered smaller areas of scarring peripherally and in the bases. Small foci of tree-in-bud like opacities in the right middle lobe and lingula. Emphysematous change. Calcified left lower lobe granuloma. Patent airways. Thoracic inlet, axillae and chest wall: No thyroid or soft tissue mass. No axillary lymphadenopathy. Mediastinum: No mass or lymphadenopathy. Heart and pericardium: Normal heart size. No pericardial effusion. Coronary artery calcifications: Mild. Pleura: No effusion or mass. Upper abdomen: Mild distal esophageal and gastric wall edema. Diffuse fatty infiltration of the liver. Thoracic bones: No acute osseous finding in the chest. Stable mild compression deformities in the thoracic spine. IMPRESSION: Scattered small, likely infectious/inflammatory foci, overlying a background of severe emphysematous change and largely stable areas of parenchymal scarring. Mild esophagitis/gastritis. Hepatic steatosis. 02/20/2024: EXAMINATION:CT diagnostic chest wo con INDICATION: Solitary pulmonary nodule. COMPARISON: Chest CT 09/08/2023, 03/09/2023, 09/08/2022 FINDINGS: There is severe emphysema. There is chronic scarring in left upper lobe. There are perihilar airspace opacities with volume loss in right upper lobe with improvement from 09/08/2023 and 03/09/2023. There are mild airspace opacities in superior segment left lower lobe with worsening from 09/08/2023. There is mild scarring in right lower lobe. There is a 7 mm nodule in left lower lobe, stable from 09/08/2022, likely benign. No pleural effusion. The heart size is normal. There are coronary artery calcifications. No pericardial effusion. Calcifications in the spleen are consistent with old granulomatous disease. There are stones in the kidneys measuring up to 6 mm on the right. There is mild chronic height loss of multiple vertebral bodies. There is mild thoracic spondylosis and severe lumbar spondylosis. IMPRESSION: 1. Continued improvement in perihilar airspace opacities in right upper lobe, consistent with chronic pneumonia. 2. Worsened mild airspace opacities in superior segment left lower lobe, consistent with pneumonia. 3. Severe emphysema. 08/19/24: CT Scan of the Chest without Contrast: Clinical Indication: COPD COMPARISON: 02/20/2024 Findings: There is no evidence of any significant mediastinal, hilar or axillary lymphadenopathy. There are extensive atherosclerotic calcifications of the coronary arteries and aorta. There is no evidence of pleural or pericardial effusion. Stable emphysema and biapical scarring with calcifications. Stable additional irregular nodule in the left upper lobe (axial image 29) disease. Stable irregular nodular scarring in the superior segment left lower lobe. Stable irregular consolidation in the right upper lobe in the perihilar region. Stable chronic scarring or atelectasis at the lingula. Probable irregular airspace opacity focally in the right lower lobe (axial image 64), likely focal infectious/inflammatory process or atelectatic change. Images through the upper abdomen reveal nonobstructing right renal stone. Stable mild compression deformities in the spine. Impression: Multiple areas of scarring and irregular consolidation the lungs are largely stable from prior exam, most prominent in the right perihilar region the upper lobe. Small new peripheral airspace opacity in the right lower lobe, most likely infectious/inflammatory in nature. Stable emphysema. infiltrates stable repeat CT scan in 12 months. 08/29/2023: Alpha 1 anti trypsin genotype MM, normal. 09/08/2023: CT Scan of the Chest without Contrast: Clinical Indication: COPD COMPARISON: 03/09/2023 Findings: There is no evidence of any significant mediastinal, hilar or axillary lymphadenopathy. The mediastinal soft tissues appear normal. There is no evidence of pleural or pericardial effusion. There is biapical scarring. Stable nodule in the superior segment left lower lobe. There is decreased size of nodule/consolidation at the right upper lobe, which currently measures up to approximately 3 cm in diameter. There is chronic scarring at the lingula, unchanged. There is moderate to severe emphysema. Stable additional left lower lobe nodule (axial image 51). Images through the upper abdomen reveal bilateral nonobstructing renal stones. Impression: Irregular somewhat nodular/masslike consolidation right upper lobe, highly decreased in extent from prior exam. This presumably represents slowly resolving pneumonia given interval decrease in size. Stable chronic scarring in the lingula with additional left pulmonary nodules, which also unchanged, as detailed above. Moderate to advanced emphysema. Bilateral nephrolithiasis. 05/23/2023: Overnight oximetry on 3 L nasal cannula.? Duration of recording is 7 hours and 24 minutes.? Baseline saturation 96%.? High saturation 99%.? Low saturation 89%.? Time with saturation less than or equal to 88% was 0 minutes.? Oxygen desaturation index is 3.91.? I will continue 3 L nasal cannula at night. 04/19/2023: Overnight oximetry on 2 L nasal cannula:? Recording duration 8 hours and 35 minutes.? Baseline saturation 95%.? High saturation 99%.? Low saturation 83%.? Time with saturation less than or equal to 88% was 5 minutes and 52 seconds (1.4% of monitored time).? Oxygen desaturation index 6.1. I will increase the oxygen to 3 L and repeat an overnight oximetry. ? ?03/03/2023:? Overnight oximetry on room air.? Duration 1 hour and 57 minutes.? Basal saturation 92.2%.? High saturation 99%.? Low saturation 81%.? Time with saturation less than or equal to 88% was 6 minutes and 15 seconds (5% of the monitored time).? Oxygen desaturation events is 34 events per hour.? I will order 2 L nasal cannula repeat overnight oximetry on 2 L nasal cannula. 03/09/23 EXAMINATION: CT diagnostic chest wo con ?INDICATION: Pneumonia, unspecified organism, left upper lobe. ?09/29/2022 CTA examination report of unchanged 8 mm pulmonary nodules of left lower lobe, likely sequelae of old granulomatous disease, but would consider 6- 12 month follow ?COMPARISON: October 24, 2022 portable AP chest ?09/29/2022 CT pulmonary scan ?FINDINGS: Chronic bilateral apical fibrocalcific scarring. ?Severe emphysematous changes are again noted. ?There is contraction of the prominent consolidation of the left upper lobe and lingula since 09/29/2022 consistent with postinfectious scarring and left upper lobe atelectasis. ?Stable approximately 6 mm superior segment left lower lobe pulmonary nodule with attenuation up to 148 Hounsfield units, likely calcified pulmonary granuloma. Stable approximately 8 mm lateral left lower lobe pulmonary nodule attenuation up to 317 Hounsfield units, also likely a calcified pulmonary granuloma. There is focal lateral left lower lobe basilar discoid atelectasis or scarring. ?There is new prominent consolidation in the left upper lobe in the upper perihilar area since 09/29/2022, likely due to pneumonia. A smaller mass or focal consolidation is noted in the anterolateral right lower lobe measuring up to approximately 2.2 cm maximal dimension. Discoid atelectasis or scarring is noted in the right lower lobe. ?Normal heart size. Coronary artery calcification. No pericardial effusion. ?There is extensive thoracic aortic as well as great vessel calcification. No thoracic aortic aneurysm. ?No hilar or mediastinal mass lesion or lymphadenopathy is noted. ?Normal morphology of the adrenal glands. ?Hepatic and splenic calcified granulomas consistent with old granulomatous disease ?Small sliding hiatal hernia. ?Mild to moderate anterior wedge compression fracture of T11. ?No suspicious osteolytic or osteoblastic lesions are noted. ?IMPRESSION:? 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 home O2 assessment requires 2 L nasal cannula with rest and 2 L with ambulation.?10/06/22 overnight oximetry on 2 L nasal cannula with average saturation 97%, low saturation 93%, time with saturation less than or equal to 88% was 0 minutes. ?09/29/2022 EXAMINATION: CTA chest PE protocol ???INDICATION: Shortness of breath ???COMPARISON: 09/24/2022 and 12/14/2021 ???FINDINGS: ???Excellent contrast opacification of the pulmonary arteries. There is mild streak artifact from dense contrast in the superior vena cava and right atrium. No significant motion artifact yielding diagnostic left study which demonstrates no pulmonary embolism. Mild enlargement of the central pulmonary arteries consistent with pulmonary arterial hypertension. Severe emphysema with moderate chronic partially calcified biapical pleural-parenchymal scarring. ??No interval change in consolidation with volume loss and air bronchograms in the anterior segment of the left upper lobe and the lingula. Also unchanged is additional reticular and minimal patchy airspace opacities in the left lower lobe along the left hemidiaphragm. ???Again seen are a pulmonary nodules in the superior and posterior basilar segments of the left lower lobe unchanged since 12/14/21 and which along with a couple centrally calcified nodules in the left upper lobe and lingula which are now obscured by the consolidation likely sequela of old granulomatous disease. Small posterior layering left pleural effusion. Small amount of mucus in the trachea and right mainstem bronchus. There is complete opacification of the main right lower lobar and more peripheral bronchi consistent with mucous plugging as it is new since 08/30/2022 at which time there were no endobronchial lesions. ??Heart size is normal. Atherosclerotic coronary artery calcifications. No pericardial effusion. Thoracic aorta is normal in caliber. No pathologically enlarged thoracic lymphadenopathy. Is reflux of contrast into the inferior vena cava and hepatic veins consistent with tricuspid regurgitation. Couple splenic calcific lesions consistent with old granulomatous disease. Multiple tiny punctate calcification is at the left kidney consistent with renal stones and/or renal medullary nephrocalcinosis. Mild thoracic and severe upper lumbar spondylosis. ???IMPRESSION: ???1. No pulmonary embolism. ???2. Unchanged consolidation in the left upper lobe and lingula and minimal lung disease at the basilar left lower lobe consistent with ongoing multifocal pneumonia. ???3. Unchanged mucous plugging involving the bronchi throughout the right lower lobe. ???4. Severe emphysema. ???5. Small left pleural effusion. ???6. Unchanged 8 mm pulmonary nodules in the left lower lobe likely sequela of old granulomatous disease but would consider 6-12 month follow-up. ?09/24/2022 EXAMINATION: CTA chest PE protocol ???INDICATION: Shortness of breath. Right chest pressure. ???COMPARISON: Chest CT 09/08/2022, 12/14/21, PET/CT 03/01/17 ???FINDINGS: There is mild scarring at the lung apices. There is severe emphysema. There is mild atelectasis bilaterally. There are airspace opacities in left upper lobe with volume loss and air bronchograms. There are mild airspace opacities in anteromedial basal segment left lower lobe. These finds are consistent with pneumonia. There is an 8 mm nodule in superior segment left lower lobe, stable from 03/01/17, likely benign. There is an 8 mm nodule in left lower lobe, stable from 12/14/2021, probably benign. There is mucous plugging in the right-sided bronchi. There is a small left pleural effusion. The heart size is normal. There are coronary artery calcifications. No pericardial effusion. The central pulmonary arteries are enlarged, consistent with pulmonary arterial hypertension. There is no pulmonary embolus. Calcifications in the spleen are consistent with old granulomatous disease. There is mild thoracic spondylosis and severe lumbar spondylosis. ???IMPRESSION: ???1. No pulmonary embolus. ???2. Left-sided pneumonia predominantly involving left upper lobe. ???3. Right-sided mucous plugging. ???4. Severe emphysema. ???5. Small left pleural effusion. ???6. Stable 8 mm pulmonary nodule, probably benign. Noncontrast low-dose chest CT is recommended in 6 months. ? ??09/09/2022:? Home O2 assessment.? Rest room air saturation 87%.? 1 L nasal cannula rest saturation 93%.? Exercise 1 L nasal cannula saturation 90%.??Patien t requires 1 L at rest and with ambulation. ??09/08/2022 CT Scan of the Chest without Contrast: ???Clinical Indication: Pneumonia ???COMPARISON: 08/30/2022 ???Findings: ???There is no evidence of any significant mediastinal, hilar or axillary lymphadenopathy. Coronary artery calcium case is are present. No aortic aneurysm. ???There is no evidence of pleural or pericardial effusion. ???Extensive consolidation of the lingula is again present. There has been significant improvement in the airspace disease in the posterior superior left upper lobe as compared to prior exam, but the extensive lingular consolidation is largely unchanged. Questionable focal areas of cavitation or necrosis within the consolidation. ???Small left pleural effusion is present. There is interstitial prominence and mild airspace disease dependently adjacent to the effusion and left lower lobe. ???Stable focal pulmonary nodules in the superior segment left lower lobe (ax ial image 31), and more inferiorly in the left lower lobe (axial image 58). Previously noted left upper lobe nodule may be obscured by consolidation. ???Right lung is clear. Moderate to severe emphysema present. ???Images through the upper abdomen reveal partially imaged nonobstructing right renal stone. Suspected medullary nephrocalcinosis bilaterally. ???Impression: Extensive lingular pneumonia is essentially unchanged from prior exam. Questionable areas of cavitation or necrosis within the consolidation. ???Consolidation seen previously in the posterior superior left upper lobe is essentially resolved. ???Small left pleural effusion. Dependent interstitial thickening and haziness adjacent to the effusion is present, which could reflect atelectatic change versus additional pneumonia. ???Stable left lower lobe pulmonary nodules, as detailed above. Moderate to severe emphysema. ?08/30/2022 ???Clinical Indication: Chest pain, shortness of breath ???CT Scan of the Chest with Contrast: ???COMPARISON: 12/14/2021 ???Findings: There is no evidence of any significant mediastinal, hilar or axillary lymphadenopathy. There is no filling defect in the pulmonary arterial tree to suggest pulmonary embolus. There is no evidence of aortic dissection or aneurysm. ???There is no evidence of pleural or pericardial effusion. ???There is extensive left upper lobe and lingular consolidation. Underlying diffuse moderate to severe emphysema present. Stable nodules in the left upper and lower lobes (axial images 53, 61). ???Images through the upper abdomen reveal no abnormalities. ???Impression:No evidence of pulmonary embolus, aortic dissection, or aortic aneurysm. ???Extensive left upper lobe pneumonia. Follow-up to radiographic resolution advised. ???Underlying moderate to severe diffuse emphysema. ?? 12/15/2021 EXAMINATION: CT diagnostic chest wo con ?INDICATION: Lung nodules ?COMPARISON: PET/CT, 03/01/2017 ?FINDINGS: There is severe emphysema. There are multiple calcified nodules of the lungs, consistent with old granulomatous disease. There is a stable 7 mm noncalcified nodule in the superior segment of the left lower lobe on image 37. There is a 7 mm nodule of the left lower lobe on image 64 which previously measured 3 mm. Scarring is noted in the lung apices. There is no pleural effusion or pneumothorax. The lungs are free of acute opacities. No pathologically enlarged thoracic lymph nodes are identified. The heart size is normal. Punctate calcifications in an otherwise normal spleen likely represent healed granulomatous disease. There is mild thoracic spondylosis. There is severe upper lumbar spondylosis. ?IMPRESSION: ?1. 7 mm nodule of the left lower lobe with increase in size since the prior examination, granulomatous disease versus malignancy. Recommend follow-up CT in 3-6 months. Multiple additional stable pulmonary nodules with and without calcification likely reflect old granulomatous disease. ?2. Severe emphysema. ??11/02/2021:? PFTs ??The test was performed and results interpreted in accordance with the 2019 and 2005 ATS/ERS Task Force guidelines respectively using the Global Lung Function Initiative-2012 reference equations. Patient demonstrated good effort and cooperation. Reproducibility criteria were met. The quality of the pre bronchodilator spirometry maneuver was Grade A and post bronchodilator spirometry maneuver was Grade B. ??Findings: ??Spirometry:? There is decreased maximal expiratory airflow at all lung volumes with concave expiratory flow tracing.? The contour the inspiratory flow tracing is normal.? The pre bronchodilator FVC is 1.68 L, 68% predicted.? The pre bronchodilator FEV1 is 0.74 L, 38% predicted.? The pre bronchodilator FEV1:? FVC ratio is 44%.? The post bronchodilator FVC is 2.22 L, representing a 32% increase.? The post bronchodilator FEV1 is 0.68 L, representing a 7% decrease.? The post bronchodilator FEV1:? FVC ratio is 31%. ??Plethysmography:? The total lung capacity is 8.60 L, representing 187% predicted.? The functional residual capacity is 7.53 L, 287% predicted.? The residual volume is 6.45 L, 307% predicted. ??Diffusing Capacity:? The diffusing capacity unadjusted for hemoglobin and carboxyhemoglobin is 4.4, 23% predicted.? Diffusing capacity adjusted for alveolar volume is 1.34, 31% predicted. ??My impression:?There is a severe obstructive abnormality?with significant improvement after inhaling a single dose of albuterol. The increase in residual volume is consistent with air trapping from an obstructive abnormality.? Hyperinflation is present as demonstrated by the increase in functional residual capacity and total lung capacity and is consistent with an obstructive abnormality. The diffusing capacity unadjusted for hemoglobin and carboxyhemoglobin is severely decreased and remains severely decreased when adjusted for alveolar volume. ??There are no prior studies for comparison Review of Systems Constitutional: Constitutional: Reports no additional constitutional complaints Eyes: Eyes: Reports no additional eye complaints ENT: Reports system reviewed and no additional complaints, except as documented Cardiovascular: Cardiovascular: Reports no additional cardiovascular complaints Respiratory: Respiratory: Reports no additional respiratory complaints Gastrointestinal: Gastrointestinal: Reports no additional gastrointestinal complaints Musculoskeletal: Musculoskeletal: Reports no additional musculoskeletal complaints Neurologic: Reports system reviewed and no additional complaints, except as documented Psychiatric: Psychiatric: Reports no additional psychiatric complaints Endocrine: Endocrine: Reports no additional endocrine complaints Hematologic/Lymphatic: Hematologic/Lymphatic: Reports no additional hematologic/lymphatic complaints Allergic/Immunologic: Allergic/Immunologic: Reports no additional allergic/immunologic complaints Exam Narrative: patient is on BiPAP. Const: General: cooperative, healthy appearing and comfortable Orientation/consciousness: oriented to person, oriented to place and oriented to time HENMT: Head: normal to inspection Ears: hearing grossly normal bilaterally Eyes: General: appearance normal, both eyes and all related structures Neck: Neck: normal visual inspection Chest: Chest palpation & inspection: normal inspection of the chest Resp: Effort & Inspection: normal respiratory effort and able to speak in complete sentences Auscultation: no crackles, no rales, no rhonchi, wheezes and diminished lung sounds Other: Mild expiratory wheezes today. Cardio: Jugular venous distension: no JVD GI: Inspection: normal to inspection Skin: General skin exam: normal color Neuro: General: oriented to person, oriented to place and oriented to time Extrem: General: normal to inspection and no edema Psych: Appearance: grossly normal Objective Data Vital Signs Vital Signs: Vital Signs - 24 hr 10/15/24 10:00 10/15/24 12:00 10/15/24 12:00 Temperature Pulse Rate 110 H 111 H 110 H Respiratory Rate 27 H Blood Pressure Pulse Oximetry 98 Oxygen Delivery BiPAP Oxygen Flow Rate Fraction of Inspired Oxygen 10/15/24 12:03 10/15/24 12:05 10/15/24 12:19 Temperature Pulse Rate 112 H 112 H 113 H Respiratory Rate 39 H 31 H 37 H Blood Pressure Pulse Oximetry 97 Oxygen Delivery BiPAP Oxygen Flow Rate Fraction of Inspired Oxygen 10/15/24 12:22 10/15/24 14:00 10/15/24 15:34 Temperature 37.1 C 36.4 C Pulse Rate 111 H 102 H 99 Respiratory Rate 27 H 28 H Blood Pressure 165/82 H 163/80 H Pulse Oximetry 98 96 Oxygen Delivery Oxygen Flow Rate Fraction of Inspired Oxygen 10/15/24 16:00 10/15/24 16:00 10/15/24 16:28 Temperature Pulse Rate 104 H 106 H 104 H Respiratory Rate 28 H 28 H Blood Pressure Pulse Oximetry 98 98 Oxygen Delivery BiPAP BiPAP Oxygen Flow Rate Fraction of Inspired Oxygen 28 10/15/24 16:28 10/15/24 16:28 10/15/24 18:00 Temperature Pulse Rate 108 H 108 H Respiratory Rate 28 H Blood Pressure Pulse Oximetry 98 Oxygen Delivery BiPAP Oxygen Flow Rate Fraction of Inspired Oxygen 40 10/15/24 20:00 10/15/24 20:00 10/15/24 20:36 Temperature Pulse Rate 99 98 97 Respiratory Rate 15 15 Blood Pressure Pulse Oximetry 97 97 Oxygen Delivery BiPAP BiPAP Oxygen Flow Rate Fraction of Inspired Oxygen 40 10/15/24 20:36 10/15/24 20:47 10/15/24 20:57 Temperature 36.5 C Pulse Rate 97 105 H 95 Respiratory Rate 15 20 24 H Blood Pressure 157/79 H Pulse Oximetry 96 Oxygen Delivery Oxygen Flow Rate Fraction of Inspired Oxygen 10/15/24 21:23 10/15/24 21:47 10/15/24 23:28 Temperature Pulse Rate 100 102 H 87 Respiratory Rate 12 Blood Pressure Pulse Oximetry 95 Oxygen Delivery BiPAP Oxygen Flow Rate Fraction of Inspired Oxygen 10/15/24 23:28 10/15/24 23:55 10/15/24 23:55 Temperature Pulse Rate 87 87 87 Respiratory Rate 12 22 H Blood Pressure Pulse Oximetry 97 Oxygen Delivery BiPAP Oxygen Flow Rate Fraction of Inspired Oxygen 40 10/15/24 23:56 10/16/24 04:00 10/16/24 04:00 Temperature 36.4 C L Pulse Rate 91 96 92 Respiratory Rate 21 H 23 H Blood Pressure 154/78 H Pulse Oximetry 97 97 Oxygen Delivery BiPAP Oxygen Flow Rate Fraction of Inspired Oxygen 40 10/16/24 04:26 10/16/24 04:26 10/16/24 04:30 Temperature Pulse Rate 96 96 101 H Respiratory Rate 23 H 23 H 21 H Blood Pressure Pulse Oximetry 97 Oxygen Delivery BiPAP Oxygen Flow Rate Fraction of Inspired Oxygen 10/16/24 04:48 10/16/24 06:00 10/16/24 06:00 Temperature 37.2 C Pulse Rate 86 105 H 105 H Respiratory Rate 30 H 26 H Blood Pressure 164/84 H Pulse Oximetry 98 98 Oxygen Delivery Nasal Cannula Oxygen Flow Rate 3 Fraction of Inspired Oxygen 10/16/24 06:42 10/16/24 08:00 10/16/24 08:06 Temperature 36.6 C Pulse Rate 105 H 96 Respiratory Rate 26 H 31 H Blood Pressure 159/83 H Pulse Oximetry 98 6 L 97 Oxygen Delivery BiPAP BiPAP Oxygen Flow Rate Fraction of Inspired Oxygen 40 25 10/16/24 08:06 10/16/24 08:10 10/16/24 09:18 Temperature Pulse Rate 99 99 106 H Respiratory Rate 20 26 H Blood Pressure Pulse Oximetry 96 Oxygen Delivery BiPAP Oxygen Flow Rate Fraction of Inspired Oxygen Intake/Output Intake/Output: Intake & Output 10/13/24 10/14/24 10/15/24 10/16/24 23:59 23:59 23:59 23:59 Intake Total 2130 2659 2003 240 Output Total 500 1000 650 400 Balance 1630 1659 1353 -160 Meds/Results Medications: Active Medications Generic Name Dose Route Start Last Admin Trade Name Freq PRN Reason Stop Dose Admin Acetaminophen 650 mg 10/12/24 20:30 10/15/24 21:24 Acetaminophen 325 Mg Tablet PO 650 mg Q4H PRN Administration Mild Pain (1-3) or Fever Dextrose 12.5 gm 10/12/24 20:30 Dextrose 50% 25 Gm/50 Ml Syringe IV PUSH PRN PRN Hypoglycemia Protocol Diltiazem HCl 120 mg 10/13/24 09:00 10/16/24 09:18 Diltiazem Hcl Cd 120 Mg Cap.24hr PO 120 mg DAILY ANIYA Administration Flecainide Acetate 100 mg 10/13/24 17:40 10/16/24 09:18 Flecainide Acetate 100 Mg Tablet PO 100 mg Q12HR ANIYA Administration Glucose 15 gm 10/12/24 20:30 Glucose Oral Gel 15 Gm Of Glucse In 37.5 Gm Tube PO PRN PRN Hypoglycemia Protocol Guaifenesin 1,200 mg 10/14/24 21:00 10/16/24 09:18 Guaifenesin 12 Hr 600 Mg Tabcr PO 1,200 mg Q12HR ANIYA Administration Ceftriaxone Sodium 1 gm in 50 mls @ 100 mls/hr 10/13/24 18:00 10/15/24 17:45 Rocephin 1 Gm/Ns 50 Ml IVPB Infused Q24H ANIYA Infusion Dextrose 1,000 mls @ 100 mls/hr 10/12/24 20:30 Dextrose 5% 1,000 Ml IVPB PRN PRN Hypoglycemia Protocol Doxycycline Hyclate 100 mg in 100 mls @ 100 mls/hr 10/13/24 21:00 10/16/24 09:20 Vibramycin 100 Mg/Ns 100 Ml IVPB 100 mls/hr Q12H ANIYA Administration Ipratropium [place] 0.5 mg 10/13/24 05:46 10/13/24 06:00 Ipratropium Br 0.02% Inh Soln 0.5 Mg/2.5 Ml Vial INHALATION 0.5 mg Q6HRT PRN Administration Shortness Of Breath Ipratropium [place] 0.5 mg 10/14/24 16:00 10/16/24 08:06 Ipratropium Br 0.02% Inh Soln 0.5 Mg/2.5 Ml Vial INHALATION 0.5 mg Q4HRT ANIYA Administration Levalbuterol HCl 1.25 mg 10/13/24 05:46 10/13/24 06:00 Levalbuterol Neb 1.25 Mg/3 Ml INHALATION 1.25 mg Q6HRT PRN Administration Shortness Of Breath Or Wheezing Levalbuterol HCl 0.63 mg 10/14/24 16:00 10/16/24 08:06 Levalbuterol Neb 1.25 Mg/3 Ml INHALATION 0.63 mg Q4HRT ANIYA Administration Magnesium Oxide 400 mg 10/15/24 09:00 10/16/24 09:19 Magnesium Oxide 400 Mg Tablet PO 400 mg DAILY ANIYA Administration Mirabegron 25 mg 10/13/24 09:00 10/16/24 09:19 Mirabegron 25 Mg Er Tablet PO 25 mg DAILY ANIYA Administration Perflutren Lipid Microsphere 0 ml 10/13/24 15:22 Perflutren Lipid Microspheres 1.5 Ml Vial Diluted To 10 Ml Total Volume IV PUSH 10/16/24 15:22 ONCE PRN adequate visualization Protocol Pravastatin Sodium 20 mg 10/12/24 23:40 10/15/24 21:24 Pravastatin Sodium 20 Mg Tablet PO 20 mg HS ANIYA Administration Prednisone 40 mg 10/16/24 08:00 10/16/24 09:19 Prednisone 20 Mg Tablet PO 40 mg DAILY@0800 ANIYA Administration Rivaroxaban 15 mg 10/14/24 21:00 10/15/24 21:24 Rivaroxaban 15 Mg Tablet PO 15 mg 2100 ANIYA Administration Radiology Results: ITS Impressions Chest CT 10/12/24 19:30 IMPRESSION: Scattered small, likely infectious/inflammatory foci, overlying a background of severe emphysematous change and largely stable areas of parenchymal scarring. Mild esophagitis/gastritis. Hepatic steatosis. Chest X-Ray 10/16/24 08:47 Impression: 1: No acute cardiopulmonary disease. No significant interval change.
[2024-10-16] MEDS: SENNA/DOCUSATE SODIUM TABLET 1 TAB PO (18:48)
[2024-10-16] MEDS: polyethylene glycoL 3350 17 GM POWD.PACK PO (18:48)
[2024-10-16] MEDS: RIVAROXABAN 15 MG TABLET PO (20:55)
[2024-10-16] MEDS: PRAVASTATIN SODIUM 20 MG TABLET PO (20:55)
[2024-10-17] VITALS (31 sets, daily range): BP systolic 144–172; BP diastolic 75–94; PULSE 74–103; RESP 17–30; TEMP 36.5–37; O2SAT 95–99
[2024-10-17] MEDS: IPRATROPIUM BR 0.02% INH SOLN 0.5 MG/2.5 ML VIAL INHALATION ×5 (00:25→21:07)
[2024-10-17] MEDS: LEVALBUTEROL NEB 1.25 MG/3 ML 0.63 MG INHALATION ×5 (00:26→21:06)
[2024-10-17 04:40] LABS: Mean Corpuscular HGB Conc 31.7 g/dl (32-36); Mean Corpuscular Hemoglobin 30.6 pg (26-34); Mean Corpuscular Volume 96.5 fl (80-100); Mean Platelet Volume 11.1 fl (7.4-10.4); Platelet Count Result 212 k/mm3 (150-375); Red Blood Count 4.25 M/mm3 (4.2-5.4); Red Cell Distribution Width 12.7 % (11.5-14.5); White Blood Count 12.8 K/mm3 (4.5-10.0)
[2024-10-17 04:59] LABS: Anion Gap 7 mmol/L (4-12); Blood Urea Nitrogen 22 mg/dL (7-17); Calcium 9.5 mg/dL (8.4-10.2); Carbon Dioxide 31 mmol/L (22-30); Chloride 105 mmol/L (98-107); Estimated CRCL calculation 44 ml/min; Estimated Glomerular Filt Rate > 60; Glucose 125 mg/dL (65-110); Magnesium 2.4 mg/dL (1.6-2.3); Potassium 3.2 mmol/L (3.4-5.0); Sodium 143 mmol/L (137-145)
[2024-10-17] MEDS: predniSONE 20 MG TABLET 40 MG PO (08:30)
[2024-10-17] MEDS: guaiFENesin 12 HR 600 MG TABCR 1200 MG PO ×2 (08:30→20:45)
[2024-10-17] MEDS: dilTIAZem HCL CD 120 MG CAP.24HR PO (08:31)
[2024-10-17] MEDS: MAGNESIUM OXIDE 400 MG TABLET PO (08:31)
[2024-10-17] MEDS: SENNA/DOCUSATE SODIUM TABLET 1 TAB PO ×2 (08:31→17:06)
[2024-10-17] MEDS: FLECAINIDE ACETATE 100 MG TABLET PO ×2 (08:31→20:45)
[2024-10-17] MEDS: polyethylene glycoL 3350 17 GM POWD.PACK PO (08:31)
[2024-10-17] MEDS: MIRABEGRON 25 MG ER TABLET PO (08:31)
--- NOTE | 2024-10-17 08:32 | PM.IMPN ---
Progress Note: A&P Assessment and Plan (1) Lactic acidosis: Code(s): E87.20 - Acidosis, unspecified Status: Acute (2) Sepsis: Code(s): A41.9 - Sepsis, unspecified organism Status: Acute (3) Acute on chronic respiratory failure with hypoxia and hypercapnia: Code(s): J96.21 - Acute and chronic respiratory failure with hypoxia; J96.22 - Acute and chronic respiratory failure with hypercapnia Status: Acute (4) Respiratory syncytial virus (RSV): Qualifiers: RSV infection type: unspecified Qualified Code(s): B33.8 - Other specified viral diseases Code(s): B33.8 - Other specified viral diseases Status: Acute Plan This is a 74-year-old female with a past medical history prior tobacco abuse, COPD and chronic respiratory failure on 3 L nasal cannula continuously, atrial fibrillation on Xarelto, hypertension, hypercholesterolemia, polycythemia secondary to hypoxia, pulmonary nodule. She is accompanied by her who she lives with and her daughter. The patient quit smoking 2 years prior and has not been hospitalized since then either. She has been in her normal state of health and does not frequently use her inhalers or nebulizers. In the past 2 days she has used them multiple times due to shortness of breath and a cough productive of green/whitfield sputum. She denies chest pain. On 10/11/2024 the patient presents to [facility] due to severe difficulty breathing. ER nurse practitioner note patient was tripoding on arrival. Tachypnea with respiratory rate 24-27. Vitals otherwise stable. WBC 14.4, hemoglobin 15.4, . Acute on chronic respiratory failure with hypoxia and hypercapnia Patient has chronic respiratory failure Upon arrival in the ED, patient has worsening O2 desaturation, ABG demonstrated hypercapnic, hypoxemic respiratory failure patient has been on BiPAP since arrival Repeat ABG showed improvement symptoms retention Continue current management COPD exacerbation RSV infection. Suspected bacterial pneumonia on vancomycin ceftriaxone and azithromycin, Solu-Medrol 125 mg IV push x1, 2 L normal saline bolus, Patient is on DuoNeb scheduled, albuterol nebulizer. Received Methylprednisolone completed treatment on October 15 Finish antibiotic treatment 10/16 Consult point of sale associate for evaluation treatment Acute renal failure due to Dehydration and sepsis BUN 25, serum creatinine 1.28, baseline creatinine 0.7 Received fluid resuscitation Kidney function improving Discontinue normal saline 75 mL/hour Severe sepsis without shock lactic acidosis with end-organ damage, acute hypoxic respiratory failure and acute kidney injury Paroxysmal atrial fibrillation on Xarelto, Cardizem 120 mg daily p.o. And flecainide 100 mg b.i.d. p.o. Follow-up echocardiogram 1. Complete two-dimensional, color flow and Doppler transthoracic echocardiogram is performed. 2. There is normal biventricular size and systolic function. 3. There is no significant valvular disease. 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 Patient wishes to be full code. Home medications will be restarted as appropriate if indicated. Subjective Date/time seen: 10/17/24 08:32 Interval history: I saw examined patient today. Patient feels improving slowly. Patient denies chest pain abdomen pain nausea vomiting diarrhea Labs reviewed, potassium 3.2. Replete with potassium chloride 40 mg p.o. once Patient still needs BiPAP most time Exam Narrative: GENERAL: Ill-appearing in no acute distress. Moderate malnutrition - EYES: EOMI. Anicteric. - HENT: Moist mucous membranes. - LUNGS: Distant breath sound bilateral, scattered wheezing, coarse breath sound bilateral base, - CARDIOVASCULAR: Regular rate and rhythm. No murmur. No JVD. - ABDOMEN: Soft, non-tender and non-distended. No palpable masses. - EXTREMITIES: No edema. Peripheral pulses 2+. Non-tender. - NEUROLOGIC: No focal neurological deficits. CN II-XII grossly intact. General weakness - PSYCHIATRIC: Awake, Alert and oriented x 3. Appropriate mood and affect. - SKIN: No rashes or lesions. Warm. - LYMPH: No cervical lymphadenopathy. Objective Data Vital Signs Vital Signs: Vital Signs - 24 hr 10/16/24 09:18 10/16/24 09:20 10/16/24 10:00 Temperature Pulse Rate 106 H 106 H Respiratory Rate Blood Pressure Pulse Oximetry 98 Oxygen Delivery Nasal Cannula Oxygen Flow Rate 3 Fraction of Inspired Oxygen 10/16/24 11:30 10/16/24 12:00 10/16/24 12:00 Temperature 98.1 F Pulse Rate 84 84 Respiratory Rate 24 H 15 Blood Pressure 162/79 H Pulse Oximetry 96 95 Oxygen Delivery BiPAP BiPAP Oxygen Flow Rate Fraction of Inspired Oxygen 10/16/24 12:00 10/16/24 12:45 10/16/24 12:51 Temperature Pulse Rate 88 84 84 Respiratory Rate 15 15 Blood Pressure Pulse Oximetry 95 Oxygen Delivery BiPAP Oxygen Flow Rate Fraction of Inspired Oxygen 10/16/24 14:00 10/16/24 14:15 10/16/24 16:00 Temperature Pulse Rate 93 102 H 92 Respiratory Rate 20 18 Blood Pressure Pulse Oximetry 98 97 Oxygen Delivery Nasal Cannula BiPAP Oxygen Flow Rate 3 3 Fraction of Inspired Oxygen 10/16/24 16:00 10/16/24 16:00 10/16/24 16:35 Temperature 97.9 F Pulse Rate 90 92 92 Respiratory Rate 22 H 26 H Blood Pressure 148/78 H Pulse Oximetry 99 Oxygen Delivery Oxygen Flow Rate Fraction of Inspired Oxygen 10/16/24 16:35 10/16/24 16:46 10/16/24 18:00 Temperature Pulse Rate 92 91 Respiratory Rate 26 H Blood Pressure Pulse Oximetry 96 Oxygen Delivery BiPAP BiPAP Oxygen Flow Rate Fraction of Inspired Oxygen 10/16/24 18:54 10/16/24 19:21 10/16/24 20:00 Temperature 98 F Pulse Rate 98 100 102 H Respiratory Rate 16 20 Blood Pressure 158/79 H Pulse Oximetry 98 98 Oxygen Delivery Nasal Cannula Oxygen Flow Rate 3 Fraction of Inspired Oxygen 10/16/24 20:55 10/16/24 20:55 10/16/24 21:15 Temperature Pulse Rate 85 97 Respiratory Rate 20 Blood Pressure Pulse Oximetry 97 95 Oxygen Delivery Nasal Cannula BiPAP Oxygen Flow Rate 3 Fraction of Inspired Oxygen 10/16/24 21:15 10/16/24 21:25 10/16/24 21:28 Temperature Pulse Rate 96 94 96 Respiratory Rate 20 20 20 Blood Pressure Pulse Oximetry 95 Oxygen Delivery BiPAP Oxygen Flow Rate Fraction of Inspired Oxygen 10/16/24 22:00 10/16/24 23:48 10/16/24 23:48 Temperature 97.8 F Pulse Rate 83 86 85 Respiratory Rate 20 23 H Blood Pressure 147/81 H Pulse Oximetry 98 97 Oxygen Delivery BiPAP Oxygen Flow Rate Fraction of Inspired Oxygen 10/17/24 00:00 10/17/24 00:28 10/17/24 00:30 Temperature Pulse Rate 86 90 90 Respiratory Rate 17 17 Blood Pressure Pulse Oximetry 96 Oxygen Delivery BiPAP Oxygen Flow Rate Fraction of Inspired Oxygen 10/17/24 00:40 10/17/24 02:00 10/17/24 04:00 Temperature Pulse Rate 87 85 91 Respiratory Rate 17 17 Blood Pressure Pulse Oximetry 97 Oxygen Delivery BiPAP Oxygen Flow Rate Fraction of Inspired Oxygen 10/17/24 04:00 10/17/24 04:37 10/17/24 05:00 Temperature 97.7 F Pulse Rate 90 90 74 Respiratory Rate 30 H 26 H Blood Pressure 166/82 H Pulse Oximetry 97 Oxygen Delivery Oxygen Flow Rate Fraction of Inspired Oxygen 10/17/24 05:00 10/17/24 06:00 10/17/24 06:10 Temperature Pulse Rate 74 103 H 76 Respiratory Rate 26 H 26 H Blood Pressure Pulse Oximetry 99 Oxygen Delivery BiPAP Oxygen Flow Rate Fraction of Inspired Oxygen 10/17/24 08:00 Temperature 98.5 F Pulse Rate 103 H Respiratory Rate 22 H Blood Pressure 172/94 H Pulse Oximetry 97 Oxygen Delivery Oxygen Flow Rate Fraction of Inspired Oxygen Intake/Output Intake/Output: Intake & Output 10/14/24 10/15/24 10/16/24 10/17/24 23:59 23:59 23:59 23:59 Intake Total 2659 2002 1030 400 Output Total 1000 650 700 250 Balance 1659 1353 330 150 Meds/Results Medications: Active Medications Generic Name Dose Route Start Last Admin Trade Name Freq PRN Reason Stop Dose Admin Acetaminophen 650 mg 10/12/24 20:30 10/15/24 21:24 Acetaminophen 325 Mg Tablet PO 650 mg Q4H PRN Administration Mild Pain (1-3) or Fever Dextrose 12.5 gm 10/12/24 20:30 Dextrose 50% 25 Gm/50 Ml Syringe IV PUSH PRN PRN Hypoglycemia Protocol Diltiazem HCl 120 mg 10/13/24 09:00 10/16/24 09:18 Diltiazem Hcl Cd 120 Mg Cap.24hr PO 120 mg DAILY ANIYA Administration Flecainide Acetate 100 mg 10/13/24 17:40 10/16/24 20:55 Flecainide Acetate 100 Mg Tablet PO 100 mg Q12HR ANIYA Administration Glucose 15 gm 10/12/24 20:30 Glucose Oral Gel 15 Gm Of Glucse In 37.5 Gm Tube PO PRN PRN Hypoglycemia Protocol Guaifenesin 1,200 mg 10/14/24 21:00 10/16/24 20:54 Guaifenesin 12 Hr 600 Mg Tabcr PO 1,200 mg Q12HR ANIYA Administration Dextrose 1,000 mls @ 100 mls/hr 10/12/24 20:30 Dextrose 5% 1,000 Ml IVPB PRN PRN Hypoglycemia Protocol Ipratropium Woodman 0.5 mg 10/13/24 05:46 10/13/24 06:00 Ipratropium Br 0.02% Inh Soln 0.5 Mg/2.5 Ml Vial INHALATION 0.5 mg Q6HRT PRN Administration Shortness Of Breath Ipratropium Woodman 0.5 mg 10/14/24 16:00 10/17/24 05:00 Ipratropium Br 0.02% Inh Soln 0.5 Mg/2.5 Ml Vial INHALATION 0.5 mg Q4HRT ANIYA Administration Levalbuterol HCl 1.25 mg 10/13/24 05:46 10/13/24 06:00 Levalbuterol Neb 1.25 Mg/3 Ml INHALATION 1.25 mg Q6HRT PRN Administration Shortness Of Breath Or Wheezing Levalbuterol HCl 0.63 mg 10/14/24 16:00 10/17/24 06:00 Levalbuterol Neb 1.25 Mg/3 Ml INHALATION 0.63 mg Q4HRT ANIYA Administration Magnesium Oxide 400 mg 10/15/24 09:00 10/16/24 09:19 Magnesium Oxide 400 Mg Tablet PO 400 mg DAILY ANIYA Administration Mirabegron 25 mg 10/13/24 09:00 10/16/24 09:19 Mirabegron 25 Mg Er Tablet PO 25 mg DAILY ANIYA Administration Polyethylene Glycol 17 gm 10/16/24 18:15 10/16/24 18:48 Polyethylene Glycol 3350 17 Gm Powd.Pack PO 17 gm QAM ANIYA Administration Pravastatin Sodium 20 mg 10/12/24 23:40 10/16/24 20:55 Pravastatin Sodium 20 Mg Tablet PO 20 mg HS ANIYA Administration Prednisone 40 mg 10/16/24 08:00 10/16/24 09:19 Prednisone 20 Mg Tablet PO 40 mg DAILY@0800 ANIYA Administration Rivaroxaban 15 mg 10/14/24 21:00 10/16/24 20:55 Rivaroxaban 15 Mg Tablet PO 15 mg 2100 ANIYA Administration Senna/Docusate Sodium 1 tab 10/16/24 18:25 10/16/24 18:48 Senna/Docusate Sodium Tablet PO 1 tab BID ANIYA Administration Radiology Results: ITS Impressions Chest CT 10/12/24 19:30 IMPRESSION: Scattered small, likely infectious/inflammatory foci, overlying a background of severe emphysematous change and largely stable areas of parenchymal scarring. Mild esophagitis/gastritis. Hepatic steatosis. Chest X-Ray 10/16/24 08:47 Impression: 1: No acute cardiopulmonary disease. No significant interval change. Venous Doppler Study 10/16/24 11:25 IMPRESSION: 1. No deep venous thrombosis. Labs Labs: Laboratory Results - last 24 hr 10/17/24 04:10 WBC 12.8 H RBC 4.25 Hgb 13.0 Hct 41.0 MCV 96.5 MCH 30.6 MCHC 31.7 L RDW 12.7 Plt Count 212 MPV 11.1 H Sodium 143 Potassium 3.2 L Chloride 105 Carbon Dioxide 31 H Anion Gap 7 BUN 22 H Creatinine 0.74 Estim Creat Clear Calc 44 Estimated GFR > 60 Glucose 125 H Calcium 9.5 Magnesium 2.4 H
--- NOTE | 2024-10-17 08:48 | PC.NURSE ---
Notified Dr. Abbasi of pt's elevated BP of 172/94. New order for hydralazine 10mg IVP now and then PRN q6h for SBP>160 or DBP> 100. New order for 0.25mg PO Xanax now and q6h PRN for anxiety
[2024-10-17] MEDS: POTASSIUM CHLORIDE 20 MEQ PACKET (FOR LIQUID) 40 MEQ PO (11:44)
--- NOTE | 2024-10-17 12:58 | PM.PNPUL ---
Progress Note: A&P Assessment and Plan (1) Respiratory syncytial virus (RSV): Qualifiers: RSV infection type: unspecified Qualified Code(s): B33.8 - Other specified viral diseases Code(s): B33.8 - Other specified viral diseases Status: Acute Assessment and Plan: Patient tested positive for RSV 10/12/24. Patient is had worsening work of breathing without hypercarbic respiratory failure on BiPAP. Most recent ABG on BiPAP 12/6 on 10/13/24 was 7.32/42/105. 10/14/2024: The patient says she is better. She was only able to tolerate 10 minutes off the BiPAP to eat lunch. Currently she is on BiPAP rate of 4 breathing 20, pressures 12/6 with tidal volumes 447 and 30% FiO2 with saturations 98%. She said the BiPAP was uncomfortable and I changed her to a noninvasive ventilation with the AVAPS mode rate of 14, tidal volume 450, EPAP 5, minimal inspiratory pressure 6, maximal inspiratory pressure 25, rise of 1 fastest, inspiratory time 1.0, FiO2 28%. She said these settings were more comfortable. Today are white blood cell count is 19.0, creatinine 0.81. Approximately 1 hour later patient had worsening respiratory distress stating that the BiPAP for rate of 4 pressures 12/6 was better for her and she was switched back to this. Plan: Treatment for RSV pneumonia is supportive. Initially did better with AVAPS mode but then requested to go back on straight BiPAP as this was more comfortable for her. Agree with treatment for other possible conditions including COPD exacerbation, bacterial pneumonia, and cardiac conditions. Echocardiogram with normal biventricular size and function. No significant valvular disease, left atrium is normal. The right atrium is normal. RVSP 37%. 10/15/24: patient has remained on BiPAP overnight. She tolerated being off BiPAP and on 4 L for 25 minutes this morning prior to breakfast and for 20 minutes at breakfast time. Currently she denies shortness of breath and is on the BiPAP and says she is comfortable. BNP is 998. Procalcitonin is decreased from 0.3 on 10/13 to 0.1 today. she is awake and following commands. Plan: Continue supportive treatment with BiPAP for work of breathing. goal saturation 90-94% was supplemental oxygen as required. She is empirically being treated for bacterial infection with ceftriaxone day 4 and azithromycin followed by doxycycline day 4. She is afebrile with no leukocytosis and her procalcitonin is decreasing. Will discontinue antibiotics tomorrow. 10/16/24: Overall patient tells me she is little bit better. She has remained essentially BiPAP dependent other than taking this off for 20-30 minutes a time 4 times yesterday To eat meals and take medicines. currently she is on BiPAP rate of 4 breathing 22, 08/09, tidal volume 541 25% FiO2 saturations 99%. When she comes off of BiPAP she oxygenates on 4 L nasal cannula. she is afebrile.Her white blood cell count 19.0. Chest x-ray with no focal infiltrates, no pleural effusions, no pneumothorax. No change from 10/12/2024. Plan: Continue supportive care treatment with BiPAP for work of breathing. Goal saturation 90-94%. day 5 of ceftriaxone and doxycycline, No evidence of bacterial infection and will discontinue after today's dose. 10/17/2024: Patient feels a little bit better. Detailed notes by the daughter in the room shows that she was off the BiPAP yesterday for 8 hours. Currently she is on BiPAP 25% with saturations 97%. She is afebrile. White blood cell count 12.8, creatinine 0.74. Weight is 50.4, cumulative she is 6.9 L positive since admission. Plan: continue supportive care with BiPAP for work of breathing. She is stable off the antibiotics since yesterday. Will follow with you. (2) COPD (chronic obstructive pulmonary disease): Code(s): J44.9 - Chronic obstructive pulmonary disease, unspecified Status: Acute Assessment and Plan: Patient with a history of 47 pack year tobacco use, Alpha 1 anti trypsin genotype MM, PFTs 11/02/2021 with a severe obstructive abnormality, FEV 1 is 0.74 L, 38% predicted, bronchodilator response, air trapping, hyperinflation and a DLCO that was severely decreased when adjusted for alveolar volume, 1st CT scan of the chest in our system from 12/14/2021 with severe panlobular emphysema throughout all lung [place], hypoxic respiratory failure requiring 2 L at rest, with ambulation and with sleep. No evidence of hypercarbic respiratory failure dating back to 01/17/2022 with a blood gas of 7.36/43/64 on room air. Echocardiogram with tricuspid regurgitation peak gradient 42 on 06/11/2022. She developed a multifocal necrotic pneumonia on 08/30/2022 and completed 6 weeks of antibiotics on 10/16/2022. Outpatient exacerbation 10/2023 and 12/2023. 10/24/2022 with CBC with white blood cell count 14.4, eosinophils 0%. 09/24/2022 CBC with white blood cell count 9.6, eosinophils 0.2%=19.2. 10/12/2024: BNP 743. 10/13/24: Procalcitonin 0.3. 10/14/24: Plan: Patient had been on Solu-Medrol 40 mg IV q.6 hours, day 3 of systemic steroids. I will decrease to 20 mg IV q.6. Continue ipratropium and levalbuterol and will increase the frequency to q.4 hours. Discontinue trelegy as patient is on maximal dose beta agonist, muscarinic antagonists and steroids. I will place the patient on guaifenesin 1200 mg p.o. b.i.d. and give her 2 600 mg tablets because she cannot swallow the 1200 mg tablets. Patient currently treated for bacterial pneumonia with ceftriaxone day 3, and azithromycin 1 dose on 10/12/2024 followed by doxycycline now day 2. I will send urine for Legionella, urine for pneumococcal and serum mycoplasma IgM. MRSA swab is negative. weight today is 46.7 with an admission weight of 49 . since admission she is 5.1 L positive. will check BnP on 10/15/2024. 10/15 Patient has no wheezing today. Plan: Today is day 4 of systemic steroids and I will give her 40 mg of prednisone tomorrow and then discontinue. Continue ipratropium and levalbuterol q.4 hours. Continue guaifenesin 1200 mg p.o. q.12 hours. 10/16/24: Mild expiratory wheezes today. Swelling of the left upper extremity Plan: Today is day 5 of systemic steroids and currently on 40 mg p.o.. Will continue. Continue ipratropium and levalbuterol nebulizers q.4 hours. Continue guaifenesin 1200 mg p.o. q.12 hours. I will order left upper extremity Doppler. 10/17/2024: No wheezes today. Upper extremity Dopplers negative for DVT Plan: I will discontinue steroids after today's dose. Subjective Date/time seen: 10/17/24 12:58 Interval history: 10/14/2024: This is a new pulmonary consult for COPD with RSV pneumonia. Patient has a history of GOLD grade 3 group B COPD On home oxygen, atrial fibrillation on Xarelto, hypertension, hyperlipidemia and followed [facility] the [facility] in last seen on 06/26/2024: Regarding her COPD, patient with a history of 47 pack year tobacco use, Alpha 1 anti trypsin genotype MM, PFTs 11/02/2021 with a severe obstructive abnormality, FEV 1 is 0.74 L, 38% predicted, bronchodilator response, air trapping, hyperinflation and a DLCO that was severely decreased when adjusted for alveolar volume, 1st CT scan of the chest in our system from 12/14/2021 with severe panlobular emphysema throughout all lung [place], hypoxic respiratory failure requiring 2 L at rest, with ambulation and with sleep. No evidence of hypercarbic respiratory failure dating back to 01/17/2022 with a blood gas of 7.36/43/64 on room air. Echocardiogram with tricuspid regurgitation peak gradient 42 on 06/11/2022. She developed a multifocal necrotic pneumonia on 08/30/2022 and completed 6 weeks of antibiotics on 10/16/2022. Outpatient exacerbation 10/2023 and 12/2023. 10/24/2022 with CBC with white blood cell count 14.4, eosinophils 0%. 09/24/2022 CBC with white blood cell count 9.6, eosinophils 0.2%=19.2. recently she has been wearing 2.5 L at rest, 2.5 L with activity and 3 L at night. 09/03/2024: Patient called with bronchitis, shortness of breath, productive cough with brown phlegm and was treated with amoxicillin and prednisone. Patient tells me she improved but did not completely get back to her normal. 10/08/2024: Patient called and stated she is having cough, chest congestion, increased phlegm production, sore throat, using Mucinex and this helps her cough up her phlegm. She is having no fever no wheezes. She states this feels like her bronchitis. I will prescribe azithromycin x5 days. 10/12/2024 patient presented to the emergency department with shortness of breath, fevers and respiratory distress. Blood pressure is 179/79, heart rate 119, saturations on 3 L 77%. Placement was started on BiPAP. White blood cell count 7.8, eosinophils 0, creatinine 0.95, BNP 743, COVID, influenza RT PCR negative. RSV RT PCR positive. MRSA swab negative. ABG on BiPAP 7.26/51/106. CT scan of the chest showed severe panlobular emphysema, stable scarring right upper lobe and left upper lobe no pleural effusions and no ground-glass infiltrates. Patient was admitted to the hospital and treated empirically for RSV, pneumonia and COPD exacerbation. 10/13/2024: ABG on BiPAP 12/6 and 30% FiO2 was 7.32/42/105. 10/14/2024: The patient says she is better. She was only able to tolerate 10 minutes off the BiPAP to eat lunch. Currently she is on BiPAP rate of 4 breathing 20, pressures 12/6 with tidal volumes 447 and 30% FiO2 with saturations 98%. She said the BiPAP was uncomfortable and I changed her to a noninvasive ventilation with the AVAPS mode rate of 14, tidal volume 450, EPAP 5, minimal inspiratory pressure 6, maximal inspiratory pressure 25, rise of 1 fastest, inspiratory time 1.0, FiO2 28%. She said these settings were more comfortable. Today are white blood cell count is 19.0, creatinine 0.81. Approximately 1 hour later patient had worsening respiratory distress stating that the BiPAP for rate of 4 pressures 12/6 was better for her and she was switched back to this. 10/15/24: patient has remained on BiPAP overnight. She tolerated being off BiPAP and on 4 L for 25 minutes this morning prior to breakfast and for 20 minutes at breakfast time. Currently she denies shortness of breath and is on the BiPAP and says she is comfortable. BNP is 998. Procalcitonin is decreased from 0.3 on 10/13 to 0.1 today. she is awake and following commands. 10/16/24: Overall patient tells me she is little bit better. She has remained essentially BiPAP dependent other than taking this off for 20-30 minutes a time 4 times yesterday To eat meals and take medicines. currently she is on BiPAP rate of 4 breathing 22, 08/09, tidal volume 541 25% FiO2 saturations 99%. When she comes off of BiPAP she oxygenates on 4 L nasal cannula. she is afebrile.Her white blood cell count 19.0. Chest x-ray with no focal infiltrates, no pleural effusions, no pneumothorax. No change from 10/12/2024. 10/17/2024: Patient feels a little bit better. Detailed notes by the daughter in the room shows that she was off the BiPAP yesterday for 8 hours. Currently she is on BiPAP 25% with saturations 97%. She is afebrile. White blood cell count 12.8, creatinine 0.74. Weight is 50.4, cumulative she is 6.9 L positive since admission. ? DATA: 10/14/2024: Echo Summary 1. Complete two-dimensional, color flow and Doppler transthoracic echocardiogram is performed. 2. There is normal biventricular size and systolic function. 3. There is no significant valvular disease. Left Ventricle The left ventricle is normal in size and systolic function. The left ventricular ejection fraction is visually estimated to be 65-70%. Right Ventricle The right ventricle is normal in size and systolic function. Left Atria The left atrium is normal size. Right Atria The right atrium is normal size. RVSP 37 10/12/24: EXAMINATION: CT diagnostic chest w con INDICATION: sob, copd hypoxia, cough COMPARISON: 08/19/2024; x-ray chest 10/12/2024. FINDINGS: CHEST: Thoracic aorta: No significant dilation. No dissection. Moderate atherosclerotic plaque. Lung parenchyma and airways: Biapical pleural scarring. Stable irregular nodular scarring in the bilateral upper lobes and superior segment of the left lower lobe. Scattered smaller areas of scarring peripherally and in the bases. Small foci of tree-in-bud like opacities in the right middle lobe and lingula. Emphysematous change. Calcified left lower lobe granuloma. Patent airways. Thoracic inlet, axillae and chest wall: No thyroid or soft tissue mass. No axillary lymphadenopathy. Mediastinum: No mass or lymphadenopathy. Heart and pericardium: Normal heart size. No pericardial effusion. Coronary artery calcifications: Mild. Pleura: No effusion or mass. Upper abdomen: Mild distal esophageal and gastric wall edema. Diffuse fatty infiltration of the liver. Thoracic bones: No acute osseous finding in the chest. Stable mild compression deformities in the thoracic spine. IMPRESSION: Scattered small, likely infectious/inflammatory foci, overlying a background of severe emphysematous change and largely stable areas of parenchymal scarring. Mild esophagitis/gastritis. Hepatic steatosis. 02/20/2024: EXAMINATION:CT diagnostic chest wo con INDICATION: Solitary pulmonary nodule. COMPARISON: Chest CT 09/08/2023, 03/09/2023, 09/08/2022 FINDINGS: There is severe emphysema. There is chronic scarring in left upper lobe. There are perihilar airspace opacities with volume loss in right upper lobe with improvement from 09/08/2023 and 03/09/2023. There are mild airspace opacities in superior segment left lower lobe with worsening from 09/08/2023. There is mild scarring in right lower lobe. There is a 7 mm nodule in left lower lobe, stable from 09/08/2022, likely benign. No pleural effusion. The heart size is normal. There are coronary artery calcifications. No pericardial effusion. Calcifications in the spleen are consistent with old granulomatous disease. There are stones in the kidneys measuring up to 6 mm on the right. There is mild chronic height loss of multiple vertebral bodies. There is mild thoracic spondylosis and severe lumbar spondylosis. IMPRESSION: 1. Continued improvement in perihilar airspace opacities in right upper lobe, consistent with chronic pneumonia. 2. Worsened mild airspace opacities in superior segment left lower lobe, consistent with pneumonia. 3. Severe emphysema. 08/19/24: CT Scan of the Chest without Contrast: Clinical Indication: COPD COMPARISON: 02/20/2024 Findings: There is no evidence of any significant mediastinal, hilar or axillary lymphadenopathy. There are extensive atherosclerotic calcifications of the coronary arteries and aorta. There is no evidence of pleural or pericardial effusion. Stable emphysema and biapical scarring with calcifications. Stable additional irregular nodule in the left upper lobe (axial image 29) disease. Stable irregular nodular scarring in the superior segment left lower lobe. Stable irregular consolidation in the right upper lobe in the perihilar region. Stable chronic scarring or atelectasis at the lingula. Probable irregular airspace opacity focally in the right lower lobe (axial image 64), likely focal infectious/inflammatory process or atelectatic change. Images through the upper abdomen reveal nonobstructing right renal stone. Stable mild compression deformities in the spine. Impression: Multiple areas of scarring and irregular consolidation the lungs are largely stable from prior exam, most prominent in the right perihilar region the upper lobe. Small new peripheral airspace opacity in the right lower lobe, most likely infectious/inflammatory in nature. Stable emphysema. infiltrates stable repeat CT scan in 12 months. 08/29/2023: Alpha 1 anti trypsin genotype MM, normal. 09/08/2023: CT Scan of the Chest without Contrast: Clinical Indication: COPD COMPARISON: 03/09/2023 Findings: There is no evidence of any significant mediastinal, hilar or axillary lymphadenopathy. The mediastinal soft tissues appear normal. There is no evidence of pleural or pericardial effusion. There is biapical scarring. Stable nodule in the superior segment left lower lobe. There is decreased size of nodule/consolidation at the right upper lobe, which currently measures up to approximately 3 cm in diameter. There is chronic scarring at the lingula, unchanged. There is moderate to severe emphysema. Stable additional left lower lobe nodule (axial image 51). Images through the upper abdomen reveal bilateral nonobstructing renal stones. Impression: Irregular somewhat nodular/masslike consolidation right upper lobe, highly decreased in extent from prior exam. This presumably represents slowly resolving pneumonia given interval decrease in size. Stable chronic scarring in the lingula with additional left pulmonary nodules, which also unchanged, as detailed above. Moderate to advanced emphysema. Bilateral nephrolithiasis. 05/23/2023: Overnight oximetry on 3 L nasal cannula.? Duration of recording is 7 hours and 24 minutes.? Baseline saturation 96%.? High saturation 99%.? Low saturation 89%.? Time with saturation less than or equal to 88% was 0 minutes.? Oxygen desaturation index is 3.91.? I will continue 3 L nasal cannula at night. 04/19/2023: Overnight oximetry on 2 L nasal cannula:? Recording duration 8 hours and 35 minutes.? Baseline saturation 95%.? High saturation 99%.? Low saturation 83%.? Time with saturation less than or equal to 88% was 5 minutes and 52 seconds (1.4% of monitored time).? Oxygen desaturation index 6.1. I will increase the oxygen to 3 L and repeat an overnight oximetry. ? ?03/03/2023:? Overnight oximetry on room air.? Duration 1 hour and 57 minutes.? Basal saturation 92.2%.? High saturation 99%.? Low saturation 81%.? Time with saturation less than or equal to 88% was 6 minutes and 15 seconds (5% of the monitored time).? Oxygen desaturation events is 34 events per hour.? I will order 2 L nasal cannula repeat overnight oximetry on 2 L nasal cannula. 03/09/23 EXAMINATION: CT diagnostic chest wo con ?INDICATION: Pneumonia, unspecified organism, left upper lobe. ?09/29/2022 CTA examination report of unchanged 8 mm pulmonary nodules of left lower lobe, likely sequelae of old granulomatous disease, but would consider 6-12 month follow ?COMPARISON: October 24, 2022 portable AP chest ?09/29/2022 CT pulmonary scan ?FINDINGS: Chronic bilateral apical fibrocalcific scarring. ?Severe emphysematous changes are again noted. ?There is contraction of the prominent consolidation of the left upper lobe and lingula since 09/29/2022 consistent with postinfectious scarring and left upper lobe atelectasis. ?Stable approximately 6 mm superior segment left lower lobe pulmonary nodule with attenuation up to 148 Hounsfield units, likely calcified pulmonary granuloma. Stable approximately 8 mm lateral left lower lobe pulmonary nodule attenuation up to 317 Hounsfield units, also likely a calcified pulmonary granuloma. There is focal lateral left lower lobe basilar discoid atelectasis or scarring. ?There is new prominent consolidation in the left upper lobe in the upper perihilar area since 09/29/2022, likely due to pneumonia. A smaller mass or focal consolidation is noted in the anterolateral right lower lobe measuring up to approximately 2.2 cm maximal dimension. Discoid atelectasis or scarring is noted in the right lower lobe. ?Normal heart size. Coronary artery calcification. No pericardial effusion. ?There is extensive thoracic aortic as well as great vessel calcification. No thoracic aortic aneurysm. ?No hilar or mediastinal mass lesion or lymphadenopathy is noted. ?Normal morphology of the adrenal glands. ?Hepatic and splenic calcified granulomas consistent with old granulomatous disease ?Small sliding hiatal hernia. ?Mild to moderate anterior wedge compression fracture of T11. ?No suspicious osteolytic or osteoblastic lesions are noted. ?IMPRESSION:? 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 home O2 assessment requires 2 L nasal cannula with rest and 2 L with ambulation.?10/06/22 overnight oximetry on 2 L nasal cannula with average saturation 97%, low saturation 93%, time with saturation less than or equal to 88% was 0 minutes. ?09/29/2022 EXAMINATION: CTA chest PE protocol ???INDICATION: Shortness of breath ???COMPARISON: 09/24/2022 and 12/14/2021 ???FINDINGS: ???Excellent contrast opacification of the pulmonary arteries. There is mild streak artifact from dense contrast in the superior vena cava and right atrium. No significant motion artifact yielding diagnostic left study which demonstrates no pulmonary embolism. Mild enlargement of the central pulmonary arteries consistent with pulmonary arterial hypertension. Severe emphysema with moderate chronic partially calcified biapical pleural-parenchymal scarring. ??No interval change in consolidation with volume loss and air bronchograms in the anterior segment of the left upper lobe and the lingula. Also unchanged is additional reticular and minimal patchy airspace opacities in the left lower lobe along the left hemidiaphragm. ???Again seen are a pulmonary nodules in the superior and posterior basilar segments of the left lower lobe unchanged since 12/14/21 and which along with a couple centrally calcified nodules in the left upper lobe and lingula which are now obscured by the consolidation likely sequela of old granulomatous disease. Small posterior layering left pleural effusion. Small amount of mucus in the trachea and right mainstem bronchus. There is complete opacification of the main right lower lobar and more peripheral bronchi consistent with mucous plugging as it is new since 08/30/2022 at which time there were no endobronchial lesions. ??Heart size is normal. Atherosclerotic coronary artery calcifications. No pericardial effusion. Thoracic aorta is normal in caliber. No pathologically enlarged thoracic lymphadenopathy. Is reflux of contrast into the inferior vena cava and hepatic veins consistent with tricuspid regurgitation. Couple splenic calcific lesions consistent with old granulomatous disease. Multiple tiny punctate calcification is at the left kidney consistent with renal stones and/or renal medullary nephrocalcinosis. Mild thoracic and severe upper lumbar spondylosis. ???IMPRESSION: ???1. No pulmonary embolism. ???2. Unchanged consolidation in the left upper lobe and lingula and minimal lung disease at the basilar left lower lobe consistent with ongoing multifocal pneumonia. ???3. Unchanged mucous plugging involving the bronchi throughout the right lower lobe. ???4. Severe emphysema. ???5. Small left pleural effusion. ???6. Unchanged 8 mm pulmonary nodules in the left lower lobe likely sequela of old granulomatous disease but would consider 6-12 month follow-up. ?09/24/2022 EXAMINATION: CTA chest PE protocol ???INDICATION: Shortness of breath. Right chest pressure. ???COMPARISON: Chest CT 09/08/2022, 12/14/21, PET/CT 03/01/17 ???FINDINGS: There is mild scarring at the lung apices. There is severe emphysema. There is mild atelectasis bilaterally. There are airspace opacities in left upper lobe with volume loss and air bronchograms. There are mild airspace opacities in anteromedial basal segment left lower lobe. These finds are consistent with pneumonia. There is an 8 mm nodule in superior segment left lower lobe, stable from 03/01/17, likely benign. There is an 8 mm nodule in left lower lobe, stable from 12/14/2021, probably benign. There is mucous plugging in the right-sided bronchi. There is a small left pleural effusion. The heart size is normal. There are coronary artery calcifications. No pericardial effusion. The central pulmonary arteries are enlarged, consistent with pulmonary arterial hypertension. There is no pulmonary embolus. Calcifications in the spleen are consistent with old granulomatous disease. There is mild thoracic spondylosis and severe lumbar spondylosis. ???IMPRESSION: ???1. No pulmonary embolus. ???2. Left-sided pneumonia predominantly involving left upper lobe. ???3. Right-sided mucous plugging. ???4. Severe emphysema. ???5. Small left pleural effusion. ???6. Stable 8 mm pulmonary nodule, probably benign. Noncontrast low-dose chest CT is recommended in 6 months. ? ??09/09/2022:? Home O2 assessment.? Rest room air saturation 87%.? 1 L nasal cannula rest saturation 93%.? Exercise 1 L nasal cannula saturation 90%.??Patient requires 1 L at rest and with ambulation. ??09/08/2022 CT Scan of the Chest without Contrast: ???Clinical Indication: Pneumonia ???COMPARISON: 08/30/2022 ???Findings: ???There is no evidence of any significant mediastinal, hilar or axillary lymphadenopathy. Coronary artery calcium case is are present. No aortic aneurysm. ???There is no evidence of pleural or pericardial effusion. ???Extensive consolidation of the lingula is again present. There has been significant improvement in the airspace disease in the posterior superior left upper lobe as compared to prior exam, but the extensive lingular consolidation is largely unchanged. Questionable focal areas of cavitation or necrosis within the consolidation. ???Small left pleural effusion is present. There is interstitial prominence and mild airspace disease dependently adjacent to the effusion and left lower lobe. ???Stable focal pulmonary nodules in the superior segment left lower lobe (axial image 31), and more inferiorly in the left lower lobe (axial image 58). Previously noted left upper lobe nodule may be obscured by consolidation. ???Right lung is clear. Moderate to severe emphysema present. ???Images through the upper abdomen reveal partially imaged nonobstructing right renal stone. Suspected medullary nephrocalcinosis bilaterally. ???Impression: Extensive lingular pneumonia is essentially unchanged from prior exam. Questionable areas of cavitation or necrosis within the consolidation. ???Consolidation seen previously in the posterior superior left upper lobe is essentially resolved. ???Small left pleural effusion. Dependent interstitial thickening and haziness adjacent to the effusion is present, which could reflect atelectatic change versus additional pneumonia. ???Stable left lower lobe pulmonary nodules, as detailed above. Moderate to severe emphysema. ?08/30/2022 ???Clinical Indication: Chest pain, shortness of breath ???CT Scan of the Chest with Contrast: ???COMPARISON: 12/14/2021 ???Findings: There is no evidence of any significant mediastinal, hilar or axillary lymphadenopathy. There is no filling defect in the pulmonary arterial tree to suggest pulmonary embolus. There is no evidence of aortic dissection or aneurysm. ???There is no evidence of pleural or pericardial effusion. ???There is extensive left upper lobe and lingular consolidation. Underlying diffuse moderate to severe emphysema present. Stable nodules in the left upper and lower lobes (axial images 53, 61). ???Images through the upper abdomen reveal no abnormalities. ???Impression:No evidence of pulmonary embolus, aortic dissection, or aortic aneurysm. ???Extensive left upper lobe pneumonia. Follow-up to radiographic resolution advised. ???Underlying moderate to severe diffuse emphysema. ?? 12/15/2021 EXAMINATION: CT diagnostic chest wo con ?INDICATION: Lung nodules ?COMPARISON: PET/CT, 03/01/2017 ?FINDINGS: There is severe emphysema. There are multiple calcified nodules of the lungs, consistent with old granulomatous disease. There is a stable 7 mm noncalcified nodule in the superior segment of the left lower lobe on image 37. There is a 7 mm nodule of the left lower lobe on image 64 which previously measured 3 mm. Scarring is noted in the lung apices. There is no pleural effusion or pneumothorax. The lungs are free of acute opacities. No pathologically enlarged thoracic lymph nodes are identified. The heart size is normal. Punctate calcifications in an otherwise normal spleen likely represent healed granulomatous disease. There is mild thoracic spondylosis. There is severe upper lumbar spondylosis. ?IMPRESSION: ?1. 7 mm nodule of the left lower lobe with increase in size since the prior examination, granulomatous disease versus malignancy. Recommend follow-up CT in 3-6 months. Multiple additional stable pulmonary nodules with and without calcification likely reflect old granulomatous disease. ?2. Severe emphysema. ??11/02/2021:? PFTs ??The test was performed and results interpreted in accordance with the 2019 and 2005 ATS/ERS Task Force guidelines respectively using the Global Lung Function Initiative-2012 reference equations. Patient demonstrated good effort and cooperation. Reproducibility criteria were met. The quality of the pre bronchodilator spirometry maneuver was Grade A and post bronchodilator spirometry maneuver was Grade B. ??Findings: ??Spirometry:? There is decreased maximal expiratory airflow at all lung volumes with concave expiratory flow tracing.? The contour the inspiratory flow tracing is normal.? The pre bronchodilator FVC is 1.68 L, 68% predicted.? The pre bronchodilator FEV1 is 0.74 L, 38% predicted.? The pre bronchodilator FEV1:? FVC ratio is 44%.? The post bronchodilator FVC is 2.22 L, representing a 32% increase.? The post bronchodilator FEV1 is 0.68 L, representing a 7% decrease.? The post bronchodilator FEV1:? FVC ratio is 31%. ??Plethysmography:? The total lung capacity is 8.60 L, representing 187% predicted.? The functional residual capacity is 7.53 L, 287% predicted.? The residual volume is 6.45 L, 307% predicted. ??Diffusing Capacity:? The diffusing capacity unadjusted for hemoglobin and carboxyhemoglobin is 4.4, 23% predicted.? Diffusing capacity adjusted for alveolar volume is 1.34, 31% predicted. ??My impression:?There is a severe obstructive abnormality?with significant improvement after inhaling a single dose of albuterol. The increase in residual volume is consistent with air trapping from an obstructive abnormality.? Hyperinflation is present as demonstrated by the increase in functional residual capacity and total lung capacity and is consistent with an obstructive abnormality. The diffusing capacity unadjusted for hemoglobin and carboxyhemoglobin is severely decreased and remains severely decreased when adjusted for alveolar volume. ??There are no prior studies for comparison Review of Systems Constitutional: Constitutional: Reports no additional constitutional complaints Eyes: Eyes: Reports no additional eye complaints ENT: Reports system reviewed and no additional complaints, except as documented Cardiovascular: Cardiovascular: Reports no additional cardiovascular complaints Respiratory: Respiratory: Reports no additional respiratory complaints Gastrointestinal: Gastrointestinal: Reports no additional gastrointestinal complaints Musculoskeletal: Musculoskeletal: Reports no additional musculoskeletal complaints Neurologic: Reports system reviewed and no additional complaints, except as documented Psychiatric: Psychiatric: Reports no additional psychiatric complaints Endocrine: Endocrine: Reports no additional endocrine complaints Hematologic/Lymphatic: Hematologic/Lymphatic: Reports no additional hematologic/lymphatic complaints Allergic/Immunologic: Allergic/Immunologic: Reports no additional allergic/immunologic complaints Exam Narrative: patient is on BiPAP. Const: General: cooperative, healthy appearing and comfortable Orientation/consciousness: oriented to person, oriented to place and oriented to time HENMT: Head: normal to inspection Ears: hearing grossly normal bilaterally Eyes: General: appearance normal, both eyes and all related structures Neck: Neck: normal visual inspection Chest: Chest palpation & inspection: normal inspection of the chest Resp: Effort & Inspection: normal respiratory effort and able to speak in complete sentences Auscultation: no crackles, no rales, no rhonchi, no wheezes and diminished lung sounds Other: No wheezes today Cardio: Jugular venous distension: no JVD GI: Inspection: normal to inspection Skin: General skin exam: normal color Neuro: General: oriented to person, oriented to place and oriented to time Extrem: General: normal to inspection and no edema Psych: Appearance: grossly normal Objective Data Vital Signs Vital Signs: Vital Signs - 24 hr 10/16/24 14:00 10/16/24 14:15 10/16/24 16:00 Temperature Pulse Rate 93 102 H 92 Respiratory Rate 20 18 Blood Pressure Pulse Oximetry 98 97 Oxygen Delivery Nasal Cannula BiPAP Oxygen Flow Rate 3 3 Fraction of Inspired Oxygen 10/16/24 16:00 10/16/24 16:00 10/16/24 16:35 Temperature 36.6 C Pulse Rate 90 92 92 Respiratory Rate 22 H 26 H Blood Pressure 148/78 H Pulse Oximetry 99 Oxygen Delivery Oxygen Flow Rate Fraction of Inspired Oxygen 10/16/24 16:35 10/16/24 16:46 10/16/24 18:00 Temperature Pulse Rate 92 91 Respiratory Rate 26 H Blood Pressure Pulse Oximetry 96 Oxygen Delivery BiPAP BiPAP Oxygen Flow Rate Fraction of Inspired Oxygen 10/16/24 18:54 10/16/24 19:21 10/16/24 20:00 Temperature 36.6 C Pulse Rate 98 100 102 H Respiratory Rate 16 20 Blood Pressure 158/79 H Pulse Oximetry 98 98 Oxygen Delivery Nasal Cannula Oxygen Flow Rate 3 Fraction of Inspired Oxygen 10/16/24 20:55 10/16/24 20:55 10/16/24 21:15 Temperature Pulse Rate 85 97 Respiratory Rate 20 Blood Pressure Pulse Oximetry 97 95 Oxygen Delivery Nasal Cannula BiPAP Oxygen Flow Rate 3 Fraction of Inspired Oxygen 10/16/24 21:15 10/16/24 21:25 10/16/24 21:28 Temperature Pulse Rate 96 94 96 Respiratory Rate 20 20 20 Blood Pressure Pulse Oximetry 95 Oxygen Delivery BiPAP Oxygen Flow Rate Fraction of Inspired Oxygen 10/16/24 22:00 10/16/24 23:48 10/16/24 23:48 Temperature 36.6 C Pulse Rate 83 86 85 Respiratory Rate 20 23 H Blood Pressure 147/81 H Pulse Oximetry 98 97 Oxygen Delivery BiPAP Oxygen Flow Rate Fraction of Inspired Oxygen 10/17/24 00:00 10/17/24 00:28 10/17/24 00:30 Temperature Pulse Rate 86 90 90 Respiratory Rate 17 17 Blood Pressure Pulse Oximetry 96 Oxygen Delivery BiPAP Oxygen Flow Rate Fraction of Inspired Oxygen 10/17/24 00:40 10/17/24 02:00 10/17/24 04:00 Temperature Pulse Rate 87 85 91 Respiratory Rate 17 17 Blood Pressure Pulse Oximetry 97 Oxygen Delivery BiPAP Oxygen Flow Rate Fraction of Inspired Oxygen 10/17/24 04:00 10/17/24 04:37 10/17/24 05:00 Temperature 36.5 C Pulse Rate 90 90 74 Respiratory Rate 30 H 26 H Blood Pressure 166/82 H Pulse Oximetry 97 Oxygen Delivery Oxygen Flow Rate Fraction of Inspired Oxygen 10/17/24 05:00 10/17/24 06:00 10/17/24 06:10 Temperature Pulse Rate 74 103 H 76 Respiratory Rate 26 H 26 H Blood Pressure Pulse Oximetry 99 Oxygen Delivery BiPAP Oxygen Flow Rate Fraction of Inspired Oxygen 10/17/24 08:00 10/17/24 08:00 10/17/24 08:00 Temperature 36.9 C Pulse Rate 103 H 99 103 H Respiratory Rate 22 H 22 H Blood Pressure 172/94 H Pulse Oximetry 97 97 Oxygen Delivery Nasal Cannula Oxygen Flow Rate 3 Fraction of Inspired Oxygen 10/17/24 08:31 10/17/24 08:36 10/17/24 09:03 Temperature Pulse Rate 99 Respiratory Rate Blood Pressure 157/81 H Pulse Oximetry Oxygen Delivery BiPAP Oxygen Flow Rate Fraction of Inspired Oxygen 10/17/24 09:50 10/17/24 10:00 10/17/24 10:07 Temperature Pulse Rate 79 96 82 Respiratory Rate 24 H 24 H Blood Pressure Pulse Oximetry Oxygen Delivery Oxygen Flow Rate Fraction of Inspired Oxygen 10/17/24 10:07 10/17/24 10:08 10/17/24 11:45 Temperature Pulse Rate 82 82 82 Respiratory Rate 24 H 24 H 24 H Blood Pressure Pulse Oximetry 97 97 97 Oxygen Delivery BiPAP BiPAP Nasal Cannula Oxygen Flow Rate 2 Fraction of Inspired Oxygen 10/17/24 12:00 10/17/24 12:00 Temperature 36.6 C Pulse Rate 98 103 H Respiratory Rate 25 H Blood Pressure 159/75 H Pulse Oximetry 96 Oxygen Delivery Oxygen Flow Rate Fraction of Inspired Oxygen Intake/Output Intake/Output: Intake & Output 10/14/24 10/15/24 10/16/24 10/17/24 23:59 23:59 23:59 23:59 Intake Total 2659 2003 1030 600 Output Total 1000 650 700 250 Balance 1659 1353 330 350 Meds/Results Medications: Active Medications Generic Name Dose Route Start Last Admin Trade Name Freq PRN Reason Stop Dose Admin Acetaminophen 650 mg 10/12/24 20:30 10/15/24 21:24 Acetaminophen 325 Mg Tablet PO 650 mg Q4H PRN Administration Mild Pain (1-3) or Fever Alprazolam 0.25 mg 10/17/24 08:50 Alprazolam (*Crx) 0.25 Mg Tablet PO Q6H PRN Anxiety Dextrose 12.5 gm 10/12/24 20:30 Dextrose 50% 25 Gm/50 Ml Syringe IV PUSH PRN PRN Hypoglycemia Protocol Diltiazem HCl 120 mg 10/13/24 09:00 10/17/24 08:31 Diltiazem Hcl Cd 120 Mg Cap.24hr PO 120 mg DAILY ANIYA Administration Flecainide Acetate 100 mg 10/13/24 17:40 10/17/24 08:31 Flecainide Acetate 100 Mg Tablet PO 100 mg Q12HR ANIYA Administration Glucose 15 gm 10/12/24 20:30 Glucose Oral Gel 15 Gm Of Glucse In 37.5 Gm Tube PO PRN PRN Hypoglycemia Protocol Guaifenesin 1,200 mg 10/14/24 21:00 10/17/24 08:30 Guaifenesin 12 Hr 600 Mg Tabcr PO 1,200 mg Q12HR ANIYA Administration Hydralazine HCl 10 mg 10/17/24 08:50 Hydralazine Hcl 20 Mg/Ml Vial IV PUSH Q6H PRN Blood Pressure - High Dextrose 1,000 mls @ 100 mls/hr 10/12/24 20:30 Dextrose 5% 1,000 Ml IVPB PRN PRN Hypoglycemia Protocol Ipratropium Leroy 0.5 mg 10/13/24 05:46 10/13/24 06:00 Ipratropium Br 0.02% Inh Soln 0.5 Mg/2.5 Ml Vial INHALATION 0.5 mg Q6HRT PRN Administration Shortness Of Breath Ipratropium Leroy 0.5 mg 10/14/24 16:00 10/17/24 09:57 Ipratropium Br 0.02% Inh Soln 0.5 Mg/2.5 Ml Vial INHALATION 0.5 mg Q4HRT ANIYA Administration Levalbuterol HCl 1.25 mg 10/13/24 05:46 10/13/24 06:00 Levalbuterol Neb 1.25 Mg/3 Ml INHALATION 1.25 mg Q6HRT PRN Administration Shortness Of Breath Or Wheezing Levalbuterol HCl 0.63 mg 10/14/24 16:00 10/17/24 09:57 Levalbuterol Neb 1.25 Mg/3 Ml INHALATION 0.63 mg Q4HRT ANIYA Administration Magnesium Oxide 400 mg 10/15/24 09:00 10/17/24 08:31 Magnesium Oxide 400 Mg Tablet PO 400 mg DAILY ANIYA Administration Mirabegron 25 mg 10/13/24 09:00 10/17/24 08:31 Mirabegron 25 Mg Er Tablet PO 25 mg DAILY ANIYA Administration Polyethylene Glycol 17 gm 10/16/24 18:15 10/17/24 08:31 Polyethylene Glycol 3350 17 Gm Powd.Pack PO 17 gm QAM ANIYA Administration Pravastatin Sodium 20 mg 10/12/24 23:40 10/16/24 20:55 Pravastatin Sodium 20 Mg Tablet PO 20 mg HS ANIYA Administration Prednisone 40 mg 10/16/24 08:00 10/17/24 08:30 Prednisone 20 Mg Tablet PO 40 mg DAILY@0800 [facility] Administration Rivaroxaban 15 mg 10/14/24 21:00 10/16/24 20:55 Rivaroxaban 15 Mg Tablet PO 15 mg 2100 [facility] Administration Senna/Docusate Sodium 1 tab 10/16/24 18:25 10/17/24 08:31 Senna/Docusate Sodium Tablet PO 1 tab BID ANIYA Administration Radiology Results: ITS Impressions Chest CT 10/12/24 19:30 IMPRESSION: Scattered small, likely infectious/inflammatory foci, overlying a background of severe emphysematous change and largely stable areas of parenchymal scarring. Mild esophagitis/gastritis. Hepatic steatosis. Chest X-Ray 10/16/24 08:47 Impression: 1: No acute cardiopulmonary disease. No significant interval change. Venous Doppler Study 10/16/24 11:25 IMPRESSION: 1. No deep venous thrombosis. Labs Labs: Laboratory Results - last 24 hr 10/17/24 04:10 WBC 12.8 H RBC 4.25 Hgb 13.0 Hct 41.0 MCV 96.5 MCH 30.6 MCHC 31.7 L RDW 12.7 Plt Count 212 MPV 11.1 H Sodium 143 Potassium 3.2 L Chloride 105 Carbon Dioxide 31 H Anion Gap 7 BUN 22 H Creatinine 0.74 Estim Creat Clear Calc 44 Estimated GFR > 60 Glucose 125 H Calcium 9.5 Magnesium 2.4 H
--- NOTE | 2024-10-17 15:31 | PCPTNOTE ---
Patient refused therapy evaluation 1530. RN recommends trying tomorrow for the 2 hours she is off BiPAP.
[2024-10-17 15:33] LABS: Pneumococcal Antigen Urine NOT DETECTED
[2024-10-17 20:08] LABS: Legionella pneumophila Ag Ur NOT DETECTED
[2024-10-17] MEDS: RIVAROXABAN 15 MG TABLET PO (20:45)
[2024-10-17] MEDS: PRAVASTATIN SODIUM 20 MG TABLET PO (20:45)
[2024-10-18] VITALS (34 sets, daily range): BP systolic 139–158; BP diastolic 69–88; PULSE 81–101; RESP 18–28; TEMP 36.3–36.6; O2SAT 95–100
[2024-10-18] MEDS: LEVALBUTEROL NEB 1.25 MG/3 ML 0.63 MG INHALATION ×6 (00:03→21:48)
[2024-10-18] MEDS: IPRATROPIUM BR 0.02% INH SOLN 0.5 MG/2.5 ML VIAL INHALATION ×6 (00:04→21:48)
[2024-10-18] MEDS: ACETAMINOPHEN 325 MG TABLET 650 MG PO (00:32)
[2024-10-18] MEDS: guaiFENesin 12 HR 600 MG TABCR 1200 MG PO ×2 (08:26→20:27)
[2024-10-18] MEDS: SENNA/DOCUSATE SODIUM TABLET 1 TAB PO (08:27)
[2024-10-18] MEDS: polyethylene glycoL 3350 17 GM POWD.PACK PO (08:27)
[2024-10-18] MEDS: MIRABEGRON 25 MG ER TABLET PO (08:27)
[2024-10-18] MEDS: FLECAINIDE ACETATE 100 MG TABLET PO ×2 (08:27→20:27)
[2024-10-18] MEDS: dilTIAZem HCL CD 120 MG CAP.24HR PO (08:27)
[2024-10-18] MEDS: MAGNESIUM OXIDE 400 MG TABLET PO (08:27)
--- NOTE | 2024-10-18 10:06 | P.PNIM_ITS ---
Progress Note: A&P Assessment and Plan (1) Lactic acidosis: Code(s): E87.20 - Acidosis, unspecified Status: Acute (2) Sepsis: Code(s): A41.9 - Sepsis, unspecified organism Status: Acute (3) Acute on chronic respiratory failure with hypoxia and hypercapnia: Code(s): J96.21 - Acute and chronic respiratory failure with hypoxia; J96.22 - Acute and chronic respiratory failure with hypercapnia Status: Acute (4) Respiratory syncytial virus (RSV): Qualifiers: RSV infection type: unspecified Qualified Code(s): B33.8 - Other specified viral diseases Code(s): B33.8 - Other specified viral diseases Status: Acute Plan This is a 74-year-old female with a past medical history prior tobacco abuse, COPD and chronic respiratory failure on 3 L nasal cannula continuously, atrial fibrillation on Xarelto, hypertension, hypercholesterolemia, polycythemia secondary to hypoxia, pulmonary nodule. She is accompanied by her who she lives with and her daughter. The patient quit smoking 2 years prior and has not been hospitalized since then either. She has been in her normal state of health and does not frequently use her inhalers or nebulizers. In the past 2 days she has used them multiple times due to shortness of breath and a cough productive of green/whitfield sputum. She denies chest pain. On 10/11/2024 the patient presents to [place] ER due to severe difficulty breathing. ER nurse practitioner note patient was tripoding on arrival. Tachypnea with respiratory rate 24-27. Vitals otherwise stable. WBC 14.4, hemoglobin 15.4, . Acute on chronic respiratory failure with hypoxia and hypercapnia Patient has chronic respiratory failure Upon arrival in the ED, patient has worsening O2 desaturation, ABG demonstrated hypercapnic, hypoxemic respiratory failure patient has been on BiPAP since arrival Repeat ABG showed improvement symptoms retention Continue current managements COPD exacerbation RSV infection. Suspected bacterial pneumonia on vancomycin ceftriaxone and azithromycin, Solu-Medrol 125 mg IV push x1, 2 L normal saline bolus, Patient is on DuoNeb scheduled, albuterol nebulizer. Received Methylprednisolone completed treatment on October 15 Finish antibiotic treatment 10/16 Appreciate pulmonary consultation, follow recommendations Acute renal failure due to Dehydration and sepsis BUN 25, serum creatinine 1.28, baseline creatinine 0.7 Received fluid resuscitation Kidney function improving Discontinue normal saline 75 mL/hour Severe sepsis without shock lactic acidosis with end-organ damage, acute hypoxic respiratory failure and acute kidney injury Resolved Paroxysmal atrial fibrillation on Xarelto, Cardizem 120 mg daily p.o. And flecainide 100 mg b.i.d. p.o. Follow-up echocardiogram 1. Complete two-dimensional, color flow and Doppler transthoracic echocardiogram is performed. 2. There is normal biventricular size and systolic function. 3. There is no significant valvular disease. Chronic hypertension Stable Constipation Start Senokot S 1 tablet b.i.d., MiraLax 1 packet daily Patient has bowel movements every day Restart CLEARING HAND Xarelto. Patient wishes to be full code. Home medications will be restarted as appropriate if indicated. Subjective Date/time seen: 10/18/24 10:06 Interval history: I saw examined patient today. Patient feels better today, appetite continue to improve, patient has a bowel movement yesterday today. Patient was off BiPAP intermittently, patient does not feel obvious respiratory distress. Patient still has some cough scant phlegm, but denies chest pain abdomen pain nausea vomiting diarrhea. Patient afebrile, blood pressure stable. Exam Narrative: GENERAL: Ill-appearing in no acute distress. Moderate malnutrition - EYES: EOMI. Anicteric. - HENT: Moist mucous membranes. - LUNGS: Distant breath sound bilateral , coarse breath sound bilaterally, no wheezing - CARDIOVASCULAR: Regular rate and rhyth m. No murmur. No JVD. - ABDOMEN: Soft, non-tender and non-dist ended. No palpable masses. - EXTREMITIES: No edema. Peripheral puls es 2+. Non-tender. - NEUROLOGIC: No focal neurological defi cits. CN II-XII grossly intact. General weakness - PSYCHIATRIC: Awake, Alert and oriented x 3. Appropriate mood and affect. - SKIN: No rashes or lesions. Warm. - LYMPH: No cervical lymphadenopathy. Objective Data Vital Signs Vital Signs: Vital Signs - 24 hr 10/17/24 10:07 10/17/24 10:07 10/17/24 10:08 Temperature Pulse Rate 82 82 82 Respiratory Rate 24 H 24 H 24 H Blood Pressure Pulse Oximetry 97 97 Oxygen Delivery BiPAP BiPAP Oxygen Flow Rate Fraction of Inspired Oxygen 10/17/24 11:45 10/17/24 12:00 10/17/24 12:00 Temperature 98 F Pulse Rate 82 98 103 H Respiratory Rate 24 H 25 H Blood Pressure 159/75 H Pulse Oximetry 97 96 Oxygen Delivery Nasal Cannula Oxygen Flow Rate 2 Fraction of Inspired Oxygen 10/17/24 14:00 10/17/24 14:15 10/17/24 15:01 Temperature Pulse Rate 92 90 Respiratory Rate 21 H Blood Pressure Pulse Oximetry Oxygen Delivery BiPAP Oxygen Flow Rate Fraction of Inspired Oxygen 25 10/17/24 15:01 10/17/24 15:05 10/17/24 16:00 Temperature 98 F Pulse Rate 90 95 96 Respiratory Rate 21 H 22 H 28 H Blood Pressure 144/80 H Pulse Oximetry 97 99 Oxygen Delivery BiPAP Oxygen Flow Rate Fraction of Inspired Oxygen 10/17/24 16:00 10/17/24 16:00 10/17/24 17:05 Temperature Pulse Rate 96 97 102 H Respiratory Rate 28 H 20 Blood Pressure Pulse Oximetry 99 95 Oxygen Delivery BiPAP Nasal Cannula Oxygen Flow Rate 2 Fraction of Inspired Oxygen 10/17/24 18:00 10/17/24 19:36 10/17/24 20:00 Temperature 98.6 F Pulse Rate 100 95 92 Respiratory Rate 20 Blood Pressure 151/78 H Pulse Oximetry 96 Oxygen Delivery Oxygen Flow Rate Fraction of Inspired Oxygen 10/17/24 20:45 10/17/24 21:07 10/17/24 21:21 Temperature Pulse Rate 97 82 92 Respiratory Rate 21 H 22 H Blood Pressure Pulse Oximetry Oxygen Delivery Oxygen Flow Rate Fraction of Inspired Oxygen 10/17/24 21:21 10/17/24 22:00 10/18/24 00:00 Temperature Pulse Rate 94 91 87 Respiratory Rate 26 H Blood Pressure Pulse Oximetry 97 Oxygen Delivery BiPAP Oxygen Flow Rate Fraction of Inspired Oxygen 10/18/24 00:04 10/18/24 00:06 10/18/24 00:08 Temperature 97.8 F Pulse Rate 84 99 88 Respiratory Rate 20 28 H 21 H Blood Pressure 142/85 H Pulse Oximetry 97 98 Oxygen Delivery BiPAP Oxygen Flow Rate Fraction of Inspired Oxygen 10/18/24 02:00 10/18/24 04:00 10/18/24 04:51 Temperature 97.6 F Pulse Rate 87 91 86 Respiratory Rate 22 H Blood Pressure 158/74 H Pulse Oximetry 98 Oxygen Delivery Oxygen Flow Rate Fraction of Inspired Oxygen 10/18/24 04:55 10/18/24 04:57 10/18/24 05:57 Temperature Pulse Rate 87 81 84 Respiratory Rate 24 H 24 H Blood Pressure Pulse Oximetry 97 Oxygen Delivery BiPAP Oxygen Flow Rate Fraction of Inspired Oxygen 10/18/24 07:35 10/18/24 08:00 10/18/24 08:43 Temperature 97.4 F L Pulse Rate 90 Respiratory Rate 23 H Blood Pressure 141/76 H Pulse Oximetry 97 97 97 Oxygen Delivery Nasal Cannula Nasal Cannula Oxygen Flow Rate 2 2 Fraction of Inspired Oxygen 10/18/24 08:43 10/18/24 09:19 Temperature Pulse Rate 99 97 Respiratory Rate 20 18 Blood Pressure Pulse Oximetry Oxygen Delivery Oxygen Flow Rate Fraction of Inspired Oxygen Intake/Output Intake/Output: Intake & Output 10/15/24 10/16/24 10/17/24 10/18/24 23:59 23:59 23:59 23:59 Intake Total 2002 1030 1340 300 Output Total 650 700 800 Balance 1353 330 540 300 Meds/Results Medications: Active Medications Generic Name Dose Route Start Last Admin Trade Name Freq PRN Reason Stop Dose Admin Acetaminophen 650 mg 10/12/24 20:30 10/18/24 00:32 Acetaminophen 325 Mg Tablet PO 650 mg Q4H PRN Administration Mild Pain (1-3) or Fever Alprazolam 0.25 mg 10/17/24 08:50 Alprazolam (*Crx) 0.25 Mg Tablet PO Q6H PRN Anxiety Dextrose 12.5 gm 10/12/24 20:30 Dextrose 50% 25 Gm/50 Ml Syringe IV PUSH PRN PRN Hypoglycemia Protocol Diltiazem HCl 120 mg 10/13/24 09:00 10/18/24 08:27 Diltiazem Hcl Cd 120 Mg Cap.24hr PO 120 mg DAILY ANIYA Administration Flecainide Acetate 100 mg 10/13/24 17:40 10/18/24 08:27 Flecainide Acetate 100 Mg Tablet PO 100 mg Q12HR ANIYA Administration Glucose 15 gm 10/12/24 20:30 Glucose Oral Gel 15 Gm Of Glucse In 37.5 Gm Tube PO PRN PRN Hypoglycemia Protocol Guaifenesin 1,200 mg 10/14/24 21:00 10/18/24 08:26 Guaifenesin 12 Hr 600 Mg Tabcr PO 1,200 mg Q12HR ANIYA Administration Hydralazine HCl 10 mg 10/17/24 08:50 Hydralazine Hcl 20 Mg/Ml Vial IV PUSH Q6H PRN Blood Pressure - High Dextrose 1,000 mls @ 100 mls/hr 10/12/24 20:30 Dextrose 5% 1,000 Ml IVPB PRN PRN Hypoglycemia Protocol Ipratropium [place] 0.5 mg 10/13/24 05:46 10/13/24 06:00 Ipratropium Br 0.02% Inh Soln 0.5 Mg/2.5 Ml Vial INHALATION 0.5 mg Q6HRT PRN Administration Shortness Of Breath Ipratropium [place] 0.5 mg 10/14/24 16:00 10/18/24 08:41 Ipratropium Br 0.02% Inh Soln 0.5 Mg/2.5 Ml Vial INHALATION 0.5 mg Q4HRT ANIYA Administration Levalbuterol HCl 1.25 mg 10/13/24 05:46 10/13/24 06:00 Levalbuterol Neb 1.25 Mg/3 Ml INHALATION 1.25 mg Q6HRT PRN Administration Shortness Of Breath Or Wheezing Levalbuterol HCl 0.63 mg 10/14/24 16:00 10/18/24 08:42 Levalbuterol Neb 1.25 Mg/3 Ml INHALATION 0.63 mg Q4HRT ANIYA Administration Magnesium Oxide 400 mg 10/15/24 09:00 10/17/24 08:31 Magnesium Oxide 400 Mg Tablet PO 400 mg DAILY ANIYA Administration Mirabegron 25 mg 10/13/24 09:00 10/18/24 08:27 Mirabegron 25 Mg Er Tablet PO 25 mg DAILY ANIYA Administration Polyethylene Glycol 17 gm 10/16/24 18:15 10/18/24 08:27 Polyethylene Glycol 3350 17 Gm Powd.Pack PO 17 gm QAM ANIYA Administration Pravastatin Sodium 20 mg 10/12/24 23:40 10/17/24 20:45 Pravastatin Sodium 20 Mg Tablet PO 20 mg HS ANIYA Administration Rivaroxaban 15 mg 10/14/24 21:00 10/17/24 20:45 Rivaroxaban 15 Mg Tablet PO 15 mg 2100 ANIYA Administration Senna/Docusate Sodium 1 tab 10/16/24 18:25 10/18/24 08:27 Senna/Docusate Sodium Tablet PO 1 tab BID ANIYA Administration Radiology Results: ITS Impressions Chest CT 10/12/24 19:30 IMPRESSION: Scattered small, likely infectious/inflammatory foci, overlying a background of severe emphysematous change and largely stable areas of parenchymal scarring. Mild esophagitis/gastritis. Hepatic steatosis. Chest X-Ray 10/16/24 08:47 Impression: 1: No acute cardiopulmonary disease. No significant interval change. Venous Doppler Study 10/16/24 11:25 IMPRESSION: 1. No deep venous thrombosis. Labs Labs: Laboratory Results - last 24 hr 10/14/24 20:24 Ur L.pneumophila Ag Not detected Urine Pneumococcal Ag Not detected
--- NOTE | 2024-10-18 12:59 | PCPTNOTE ---
attempted PT evaluation 1300; pt refused, reports tired and SOB. Disussed pt with [facility]ANN[facility] Noe, pt was placed back of BiPap after lunch due to SOB.
--- NOTE | 2024-10-18 13:21 | PCOTNOTE ---
Attempted to see pt however pt was eating lunch at the time. Pt then later declined PT due to SOB. Will continue to follow.
--- NOTE | 2024-10-18 13:37 | PCOTNOTE ---
Attempted to see pt twice today for therapy however first attempt, pt declines due to eating lunch and second time, pt with bipap on and sleeping and family states that this is the first time she has rested well and would like to let her sleep.
--- NOTE | 2024-10-18 14:47 | PM.PNPUL ---
Progress Note: A&P Assessment and Plan (1) Respiratory syncytial virus (RSV): Qualifiers: RSV infection type: unspecified Qualified Code(s): B33.8 - Other specified viral diseases Code(s): B33.8 - Other specified viral diseases Status: Acute Assessment and Plan: Patient tested positive for RSV 10/12/24. Patient is had worsening work of breathing without hypercarbic respiratory failure on BiPAP. Most recent ABG on BiPAP 12/6 on 10/13/24 was 7.32/42/105. 10/14/2024: The patient says she is better. She was only able to tolerate 10 minutes off the BiPAP to eat lunch. Currently she is on BiPAP rate of 4 breathing 20, pressures 12/6 with tidal volumes 447 and 30% FiO2 with saturations 98%. She said the BiPAP was uncomfortable and I changed her to a noninvasive ventilation with the AVAPS mode rate of 14, tidal volume 450, EPAP 5, minimal inspiratory pressure 6, maximal inspiratory pressure 25, rise of 1 fastest, inspiratory time 1.0, FiO2 28%. She said these settings were more comfortable. Today are white blood cell count is 19.0, creatinine 0.81. Approximately 1 hour later patient had worsening respiratory distress stating that the BiPAP for rate of 4 pressures 12/6 was better for her and she was switched back to this. Plan: Treatment for RSV pneumonia is supportive. Initially did better with AVAPS mode but then requested to go back on straight BiPAP as this was more comfortable for her. Agree with treatment for other possible conditions including COPD exacerbation, bacterial pneumonia, and cardiac conditions. Echocardiogram with normal biventricular size and function. No significant valvular disease, left atrium is normal. The right atrium is normal. RVSP 37%. 10/15/24: patient has remained on BiPAP overnight. She tolerated being off BiPAP and on 4 L for 25 minutes this morning prior to breakfast and for 20 minutes at breakfast time. Currently she denies shortness of breath and is on the BiPAP and says she is comfortable. BNP is 998. Procalcitonin is decreased from 0.3 on 10/13 to 0.1 today. she is awake and following commands. Plan: Continue supportive treatment with BiPAP for work of breathing. goal saturation 90-94% was supplemental oxygen as required. She is empirically being treated for bacterial infection with ceftriaxone day 4 and azithromycin followed by doxycycline day 4. She is afebrile with no leukocytosis and her procalcitonin is decreasing. Will discontinue antibiotics tomorrow. 10/16/24: Overall patient tells me she is little bit better. She has remained essentially BiPAP dependent other than taking this off for 20-30 minutes a time 4 times yesterday To eat meals and take medicines. currently she is on BiPAP rate of 4 breathing 22, 08/09, tidal volume 541 25% FiO2 saturations 99%. When she comes off of BiPAP she oxygenates on 4 L nasal cannula. she is afebrile.Her white blood cell count 19.0. Chest x-ray with no focal infiltrates, no pleural effusions, no pneumothorax. No change from 10/12/2024. Plan: Continue supportive care treatment with BiPAP for work of breathing. Goal saturation 90-94%. day 5 of ceftriaxone and doxycycline, No evidence of bacterial infection and will discontinue after today's dose. 10/17/2024: Patient feels a little bit better. Detailed notes by the daughter in the room shows that she was off the BiPAP yesterday for 8 hours and 5 minutes. Currently she is on BiPAP 25% with saturations 97%. She is afebrile. White blood cell count 12.8, creatinine 0.74. Weight is 50.4, cumulative she is 6.9 L positive since admission. Plan: continue supportive care with BiPAP for work of breathing. She is stable off the antibiotics since yesterday. 10/18/24: Patient is off BiPAP for 8 hours and 35 minutes yesterday. Currently she is off BiPAP. She states she is a little better each day. She is afebrile. Patient is on 2 L with saturations 96% and comfortable. Yesterday she was positive 540 mL. Her weight today is 50 kg. Overall she is 7.8 L positive from admission. She had a bowel movement last night and this helped her breathing. Plan: Supportive care with BiPAP p.r.n. for support. Remains stable off of antibiotics for 48 hours. Will follow with you. (2) COPD (chronic obstructive pulmonary disease): Code(s): J44.9 - Chronic obstructive pulmonary disease, unspecified Status: Acute Assessment and Plan: Patient with a history of 47 pack year tobacco use, Alpha 1 anti trypsin genotype MM, PFTs 11/02/2021 with a severe obstructive abnormality, FEV 1 is 0.74 L, 38% predicted, bronchodilator response, air trapping, hyperinflation and a DLCO that was severely decreased when adjusted for alveolar volume, 1st CT scan of the chest in our system from 12/14/2021 with severe panlobular emphysema throughout all lung [place], hypoxic respiratory failure requiring 2 L at rest, with ambulation and with sleep. No evidence of hypercarbic respiratory failure dating back to 01/17/2022 with a blood gas of 7.36/43/64 on room air. Echocardiogram with tricuspid regurgitation peak gradient 42 on 06/11/2022. She developed a multifocal necrotic pneumonia on 08/30/2022 and completed 6 weeks of antibiotics on 10/16/2022. Outpatient exacerbation 10/2023 and 12/2023. 10/24/2022 with CBC with white blood cell count 14.4, eosinophils 0%. 09/24/2022 CBC with white blood cell count 9.6, eosinophils 0.2%=19.2. 10/12/2024: BNP 743. /05/29: Procalcitonin 0.3. 10/14/24: Plan: Patient had been on Solu-Medrol 40 mg IV q.6 hours, day 3 of systemic steroids. I will decrease to 20 mg IV q.6. Continue ipratropium and levalbuterol and will increase the frequency to q.4 hours. Discontinue trelegy as patient is on maximal dose beta agonist, muscarinic antagonists and steroids. I will place the patient on guaifenesin 1200 mg p.o. b.i.d. and give her 2 600 mg tablets because she cannot swallow the 1200 mg tablets. Patient currently treated for bacterial pneumonia with ceftriaxone day 3, and azithromycin 1 dose on 10/12/2024 followed by doxycycline now day 2. I will send urine for Legionella, urine for pneumococcal and serum mycoplasma IgM. MRSA swab is negative. weight today is 46.7 with an admission weight of 49 . since admission she is 5.1 L positive. will check BnP on 10/15/2024. 10/15 Patient has no wheezing today. Plan: Today is day 4 of systemic steroids and I will give her 40 mg of prednisone tomorrow and then discontinue. Continue ipratropium and levalbuterol q.4 hours. Continue guaifenesin 1200 mg p.o. q.12 hours. 10/16/24: Mild expiratory wheezes today. Swelling of the left upper extremity Plan: Today is day 5 of systemic steroids and currently on 40 mg p.o.. Will continue. Continue ipratropium and levalbuterol nebulizers q.4 hours. Continue guaifenesin 1200 mg p.o. q.12 hours. I will order left upper extremity Doppler. 10/17/2024: No wheezes today. Upper extremity Dopplers negative for DVT Plan: I will discontinue steroids after today's dose. 10/18/24: Patient is stable with no wheezes. Off of steroids for 24 hours. Plan: Continue levalbuterol and ipratropium nebulizers q.4 hours. Could continue guaifenesin 1200 mg p.o. b.i.d.. Subjective Date/time seen: 10/18/24 14:47 Interval history: 10/14/2024: This is a new pulmonary consult for COPD with RSV pneumonia. Patient has a history of GOLD grade 3 group B COPD On home oxygen, atrial fibrillation on Xarelto, hypertension, hyperlipidemia and followed in the [facility] in last seen on 06/26/2024: Regarding her COPD, patient with a history of 47 pack year tobacco use, Alpha 1 anti trypsin genotype MM, PFTs 11/02/2021 with a severe obstructive abnormality, FEV 1 is 0.74 L, 38% predicted, bronchodilator response, air trapping, hyperinflation and a DLCO that was severely decreased when adjusted for alveolar volume, 1st CT scan of the chest in our system from 12/14/2021 with severe panlobular emphysema throughout all lung [place], hypoxic respiratory failure requiring 2 L at rest, with ambulation and with sleep. No evidence of hypercarbic respiratory failure dating back to 01/17/2022 with a blood gas of 7.36/43/64 on room air. Echocardiogram with tricuspid regurgitation peak gradient 42 on 06/11/2022. She developed a multifocal necrotic pneumonia on 08/30/2022 and completed 6 weeks of antibiotics on 10/16/2022. Outpatient exacerbation 10/2023 and 12/2023. 10/24/2022 with CBC with white blood cell count 14.4, eosinophils 0%. 09/24/2022 CBC with white blood cell count 9.6, eosinophils 0.2%=19.2. recently she has been wearing 2.5 L at rest, 2.5 L with activity and 3 L at night. 09/03/2024: Patient called with bronchitis, shortness of breath, productive cough with brown phlegm and was treated with amoxicillin and prednisone. Patient tells me she improved but did not completely get back to her normal. 10/08/2024: Patient called and stated she is having cough, chest congestion, increased phlegm production, sore throat, using Mucinex and this helps her cough up her phlegm. She is having no fever no wheezes. She states this feels like her bronchitis. I will prescribe azithromycin x5 days. 10/12/2024 patient presented to the emergency department with shortness of breath, fevers and respiratory distress. Blood pressure is 179/79, heart rate 119, saturations on 3 L 77%. Placement was started on BiPAP. White blood cell count 7.8, eosinophils 0, creatinine 0.95, BNP 743, COVID, influenza RT PCR negative. RSV RT PCR positive. MRSA swab negative. ABG on BiPAP 7.26/51/106. CT scan of the chest showed severe panlobular emphysema, stable scarring right upper lobe and left upper lobe no pleural effusions and no ground-glass infiltrates. Patient was admitted to the hospital and treated empirically for RSV, pneumonia and COPD exacerbation. 10/13/2024: ABG on BiPAP 12/6 and 30% FiO2 was 7.32/42/105. 10/14/2024: The patient says she is better. She was only able to tolerate 10 minutes off the BiPAP to eat lunch. Currently she is on BiPAP rate of 4 breathing 20, pressures 12/6 with tidal volumes 447 and 30% FiO2 with saturations 98%. She said the BiPAP was uncomfortable and I changed her to a noninvasive ventilation with the AVAPS mode rate of 14, tidal volume 450, EPAP 5, minimal inspiratory pressure 6, maximal inspiratory pressure 25, rise of 1 fastest, inspiratory time 1.0, FiO2 28%. She said these settings were more comfortable. Today are white blood cell count is 19.0, creatinine 0.81. Approximately 1 hour later patient had worsening respiratory distress stating that the BiPAP for rate of 4 pressures 12/6 was better for her and she was switched back to this. 10/15/24: patient has remained on BiPAP overnight. She tolerated being off BiPAP and on 4 L for 25 minutes this morning prior to breakfast and for 20 minutes at breakfast time. Currently she denies shortness of breath and is on the BiPAP and says she is comfortable. BNP is 998. Procalcitonin is decreased from 0.3 on 10/13 to 0.1 today. she is awake and following commands. 10/16/24: Overall patient tells me she is little bit better. She has remained essentially BiPAP dependent other than taking this off for 20-30 minutes a time 4 times yesterday To eat meals and take medicines. currently she is on BiPAP rate of 4 breathing 22, 12/6, tidal volume 541 25% FiO2 saturations 99%. When she comes off of BiPAP she oxygenates on 4 L nasal cannula. she is afebrile.Her white blood cell count 19.0. Chest x-ray with no focal infiltrates, no pleural effusions, no pneumothorax. No change from 10/12/2024. 10/17/2024: Patient feels a little bit better. Detailed notes by the daughter in the room shows that she was off the BiPAP yesterday for 8 hours. Currently she is on BiPAP 25% with saturations 97%. She is afebrile. White blood cell count 12.8, creatinine 0.74. Weight is 50.4, cumulative she is 6.9 L positive since admission. 10/18/24: Patient is off BiPAP for 8 hours and 35 minutes yesterday. Currently she is off BiPAP. She states she is a little better each day. She is afebrile. Patient is on 2 L with saturations 96% and comfortable. Yesterday she was positive 540 mL. Her weight today is 50 kg. Overall she is 7.8 L positive from admission. She had a bowel movement last night and this helped her breathing. ? DATA: 10/14/2024: Echo Summary 1. Complete two-dimensional, color flow and Doppler transthoracic echocardiogram is performed. 2. There is normal biventricular size and systolic function. 3. There is no significant valvular disease. Left Ventricle The left ventricle is normal in size and systolic function. The left ventricular ejection fraction is visually estimated to be 65-70%. Right Ventricle The right ventricle is normal in size and systolic function. Left Atria The left atrium is normal size. Right Atria The right atrium is normal size. RVSP 37 10/12/24: EXAMINATION: CT diagnostic chest w con INDICATION: sob, copd hypoxia, cough COMPARISON: 08/19/2024; x-ray chest 10/12/2024. FINDINGS: CHEST: Thoracic aorta: No significant dilation. No dissection. Moderate atherosclerotic plaque. Lung parenchyma and airways: Biapical pleural scarring. Stable irregular nodular scarring in the bilateral upper lobes and superior segment of the left lower lobe. Scattered smaller areas of scarring peripherally and in the bases. Small foci of tree-in-bud like opacities in the right middle lobe and lingula. Emphysematous change. Calcified left lower lobe granuloma. Patent airways. Thoracic inlet, axillae and chest wall: No thyroid or soft tissue mass. No axillary lymphadenopathy. Mediastinum: No mass or lymphadenopathy. Heart and pericardium: Normal heart size. No pericardial effusion. Coronary artery calcifications: Mild. Pleura: No effusion or mass. Upper abdomen: Mild distal esophageal and gastric wall edema. Diffuse fatty infiltration of the liver. Thoracic bones: No acute osseous finding in the chest. Stable mild compression deformities in the thoracic spine. IMPRESSION: Scattered small, likely infectious/inflammatory foci, overlying a background of severe emphysematous change and largely stable areas of parenchymal scarring. Mild esophagitis/gastritis. Hepatic steatosis. 02/20/2024: EXAMINATION:CT diagnostic chest wo con INDICATION: Solitary pulmonary nodule. COMPARISON: Chest CT 09/08/2023, 03/09/2023, 09/08/2022 FINDINGS: There is severe emphysema. There is chronic scarring in left upper lobe. There are perihilar airspace opacities with volume loss in right upper lobe with improvement from 09/08/2023 and 03/09/2023. There are mild airspace opacities in superior segment left lower lobe with worsening from 09/08/2023. There is mild scarring in right lower lobe. There is a 7 mm nodule in left lower lobe, stable from 09/08/2022, likely benign. No pleural effusion. The heart size is normal. There are coronary artery calcifications. No pericardial effusion. Calcifications in the spleen are consistent with old granulomatous disease. There are stones in the kidneys measuring up to 6 mm on the right. There is mild chronic height loss of multiple vertebral bodies. There is mild thoracic spondylosis and severe lumbar spondylosis. IMPRESSION: 1. Continued improvement in perihilar airspace opacities in right upper lobe, consistent with chronic pneumonia. 2. Worsened mild airspace opacities in superior segment left lower lobe, consistent with pneumonia. 3. Severe emphysema. 08/19/24: CT Scan of the Chest without Contrast: Clinical Indication: COPD COMPARISON: 02/20/2024 Findings: There is no evidence of any significant mediastinal, hilar or axillary lymphadenopathy. There are extensive atherosclerotic calcifications of the coronary arteries and aorta. There is no evidence of pleural or pericardial effusion. Stable emphysema and biapical scarring with calcifications. Stable additional irregular nodule in the left upper lobe (axial image 29) disease. Stable irregular nodular scarring in the superior segment left lower lobe. Stable irregular consolidation in the right upper lobe in the perihilar region. Stable chronic scarring or atelectasis at the lingula. Probable irregular airspace opacity focally in the right lower lobe (axial image 64), likely focal infectious/inflammatory process or atelectatic change. Images through the upper abdomen reveal nonobstructing right renal stone. Stable mild compression deformities in the spine. Impression: Multiple areas of scarring and irregular consolidation the lungs are largely stable from prior exam, most prominent in the right perihilar region the upper lobe. Small new peripheral airspace opacity in the right lower lobe, most likely infectious/inflammatory in nature. Stable emphysema. infiltrates stable repeat CT scan in 12 months. 08/29/2023: Alpha 1 anti trypsin genotype MM, normal. 09/08/2023: CT Scan of the Chest without Contrast: Clinical Indication: COPD COMPARISON: 03/09/2023 Findings: There is no evidence of any significant mediastinal, hilar or axillary lymphadenopathy. The mediastinal soft tissues appear normal. There is no evidence of pleural or pericardial effusion. There is biapical scarring. Stable nodule in the superior segment left lower lobe. There is decreased size of nodule/consolidation at the right upper lobe, which currently measures up to approximately 3 cm in diameter. There is chronic scarring at the lingula, unchanged. There is moderate to severe emphysema. Stable additional left lower lobe nodule (axial image 51). Images through the upper abdomen reveal bilateral nonobstructing renal stones. Impression: Irregular somewhat nodular/masslike consolidation right upper lobe, highly decreased in extent from prior exam. This presumably represents slowly resolving pneumonia given interval decrease in size. Stable chronic scarring in the lingula with additional left pulmonary nodules, which also unchanged, as detailed above. Moderate to advanced emphysema. Bilateral nephrolithiasis. 05/23/2023: Overnight oximetry on 3 L nasal cannula.? Duration of recording is 7 hours and 24 minutes.? Baseline saturation 96%.? High saturation 99%.? Low saturation 89%.? Time with saturation less than or equal to 88% was 0 minutes.? Oxygen desaturation index is 3.91.? I will continue 3 L nasal cannula at night. 04/19/2023: Overnight oximetry on 2 L nasal cannula:? Recording duration 8 hours and 35 minutes.? Baseline saturation 95%.? High saturation 99%.? Low saturation 83%.? Time with saturation less than or equal to 88% was 5 minutes and 52 seconds (1.4% of monitored time).? Oxygen desaturation index 6.1. I will increase the oxygen to 3 L and repeat an overnight oximetry. ? ?03/03/2023:? Overnight oximetry on room air.? Duration 1 hour and 57 minutes.? Basal saturation 92.2%.? High saturation 99%.? Low saturation 81%.? Time with saturation less than or equal to 88% was 6 minutes and 15 seconds (5% of the monitored time).? Oxygen desaturation events is 34 events per hour.? I will order 2 L nasal cannula repeat overnight oximetry on 2 L nasal cannula. 03/09/23 EXAMINATION: CT diagnostic chest wo con ?INDICATION: Pneumonia, unspecified organism, left upper lobe. ?09/29/2022 CTA examination report of unchanged 8 mm pulmonary nodules of left lower lobe, likely sequelae of old granulomatous disease, but would consider 6-12 month follow ?COMPARISON: October 24, 2022 portable AP chest ?09/29/2022 CT pulmonary scan ?FINDINGS: Chronic bilateral apical fibrocalcific scarring. ?Severe emphysematous changes are again noted. ?There is contraction of the prominent consolidation of the left upper lobe and lingula since 09/29/2022 consistent with postinfectious scarring and left upper lobe atelectasis. ?Stable approximately 6 mm superior segment left lower lobe pulmonary nodule with attenuation up to 148 Hounsfield units, likely calcified pulmonary granuloma. Stable approximately 8 mm lateral left lower lobe pulmonary nodule attenuation up to 317 Hounsfield units, also likely a calcified pulmonary granuloma. There is focal lateral left lower lobe basilar discoid atelectasis or scarring. ?There is new prominent consolidation in the left upper lobe in the upper perihilar area since 09/29/2022, likely due to pneumonia. A smaller mass or focal consolidation is noted in the anterolateral right lower lobe measuring up to approximately 2.2 cm maximal dimension. Discoid atelectasis or scarring is noted in the right lower lobe. ?Normal heart size. Coronary artery calcification. No pericardial effusion. ?There is extensive thoracic aortic as well as great vessel calcification. No thoracic aortic aneurysm. ?No hilar or mediastinal mass lesion or lymphadenopathy is noted. ?Normal morphology of the adrenal glands. ?Hepatic and splenic calcified granulomas consistent with old granulomatous disease ?Small sliding hiatal hernia. ?Mild to moderate anterior wedge compression fracture of T11. ?No suspicious osteolytic or osteoblastic lesions are noted. ?IMPRESSION:? 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 home O2 assessment requires 2 L nasal cannula with rest and 2 L with ambulation.?10/06/22 overnight oximetry on 2 L nasal cannula with average saturation 97%, low saturation 93%, time with saturation less than or equal to 88% was 0 minutes. ?09/29/2022 EXAMINATION: CTA chest PE protocol ???INDICATION: Shortness of breath ???COMPARISON: 09/24/2022 and 12/14/2021 ???FINDINGS: ???Excellent contrast opacification of the pulmonary arteries. There is mild streak artifact from dense contrast in the superior vena cava and right atrium. No significant motion artifact yielding diagnostic left study which demonstrates no pulmonary embolism. Mild enlargement of the central pulmonary arteries consistent with pulmonary arterial hypertension. Severe emphysema with moderate chronic partially calcified biapical pleural-parenchymal scarring. ??No interval change in consolidation with volume loss and air bronchograms in the anterior segment of the left upper lobe and the lingula. Also unchanged is additional reticular and minimal patchy airspace opacities in the left lower lobe along the left hemidiaphragm. ???Again seen are a pulmonary nodules in the superior and posterior basilar segments of the left lower lobe unchanged since 12/14/21 and which along with a couple centrally calcified nodules in the left upper lobe and lingula which are now obscured by the consolidation likely sequela of old granulomatous disease. Small posterior layering left pleural effusion. Small amount of mucus in the trachea and right mainstem bronchus. There is complete opacification of the main right lower lobar and more peripheral bronchi consistent with mucous plugging as it is new since 08/30/2022 at which time there were no endobronchial lesions. ??Heart size is normal. Atherosclerotic coronary artery calcifications. No pericardial effusion. Thoracic aorta is normal in caliber. No pathologically enlarged thoracic lymphadenopathy. Is reflux of contrast into the inferior vena cava and hepatic veins consistent with tricuspid regurgitation. Couple splenic calcific lesions consistent with old granulomatous disease. Multiple tiny punctate calcification is at the left kidney consistent with renal stones and/or renal medullary nephrocalcinosis. Mild thoracic and severe upper lumbar spondylosis. ???IMPRESSION: ???1. No pulmonary embolism. ???2. Unchanged consolidation in the left upper lobe and lingula and minimal lung disease at the basilar left lower lobe consistent with ongoing multifocal pneumonia. ???3. Unchanged mucous plugging involving the bronchi throughout the right lower lobe. ???4. Severe emphysema. ???5. Small left pleural effusion. ???6. Unchanged 8 mm pulmonary nodules in the left lower lobe likely sequela of old granulomatous disease but would consider 6-12 month follow-up. ?09/24/2022 EXAMINATION: CTA chest PE protocol ???INDICATION: Shortness of breath. Right chest pressure. ???COMPARISON: Chest CT 09/08/2022, 12/14/21, PET/CT 03/01/17 ???FINDINGS: There is mild scarring at the lung apices. There is severe emphysema. There is mild atelectasis bilaterally. There are airspace opacities in left upper lobe with volume loss and air bronchograms. There are mild airspace opacities in anteromedial basal segment left lower lobe. These finds are consistent with pneumonia. There is an 8 mm nodule in superior segment left lower lobe, stable from 03/01/17, likely benign. There is an 8 mm nodule in left lower lobe, stable from 12/14/2021, probably benign. There is mucous plugging in the right-sided bronchi. There is a small left pleural effusion. The heart size is normal. There are coronary artery calcifications. No pericardial effusion. The central pulmonary arteries are enlarged, consistent with pulmonary arterial hypertension. There is no pulmonary embolus. Calcifications in the spleen are consistent with old granulomatous disease. There is mild thoracic spondylosis and severe lumbar spondylosis. ???IMPRESSION: ???1. No pulmonary embolus. ???2. Left-sided pneumonia predominantly involving left upper lobe. ???3. Right-sided mucous plugging. ???4. Severe emphysema. ???5. Small left pleural effusion. ???6. Stable 8 mm pulmonary nodule, probably benign. Noncontrast low-dose chest CT is recommended in 6 months. ? ??09/09/2022:? Home O2 assessment.? Rest room air saturation 87%.? 1 L nasal cannula rest saturation 93%.? Exercise 1 L nasal cannula saturation 90%.??Patient requires 1 L at rest and with ambulation. ??09/08/2022 CT Scan of the Chest without Contrast: ???Clinical Indication: Pneumonia ???COMPARISON: 08/30/2022 ???Findings: ???There is no evidence of any significant mediastinal, hilar or axillary lymphadenopathy. Coronary artery calcium case is are present. No aortic aneurysm. ???There is no evidence of pleural or pericardial effusion. ???Extensive consolidation of the lingula is again present. There has been significant improvement in the airspace disease in the posterior superior left upper lobe as compared to prior exam, but the extensive lingular consolidation is largely unchanged. Questionable focal areas of cavitation or necrosis within the consolidation. ???Small left pleural effusion is present. There is interstitial prominence and mild airspace disease dependently adjacent to the effusion and left lower lobe. ???Stable focal pulmonary nodules in the superior segment left lower lobe (axial image 31), and more inferiorly in the left lower lobe (axial image 58). Previously noted left upper lobe nodule may be obscured by consolidation. ???Right lung is clear. Moderate to severe emphysema present. ???Images through the upper abdomen reveal partially imaged nonobstructing right renal stone. Suspected medullary nephrocalcinosis bilaterally. ???Impression: Extensive lingular pneumonia is essentially unchanged from prior exam. Questionable areas of cavitation or necrosis within the consolidation. ???Consolidation seen previously in the posterior superior left upper lobe is essentially resolved. ???Small left pleural effusion. Dependent interstitial thickening and haziness adjacent to the effusion is present, which could reflect atelectatic change versus additional pneumonia. ???Stable left lower lobe pulmonary nodules, as detailed above. Moderate to severe emphysema. ?08/30/2022 ???Clinical Indication: Chest pain, shortness of breath ???CT Scan of the Chest with Contrast: ???COMPARISON: 12/14/2021 ???Findings: There is no evidence of any significant mediastinal, hilar or axillary lymphadenopathy. There is no filling defect in the pulmonary arterial tree to suggest pulmonary embolus. There is no evidence of aortic dissection or aneurysm. ???There is no evidence of pleural or pericardial effusion. ???There is extensive left upper lobe and lingular consolidation. Underlying diffuse moderate to severe emphysema present. Stable nodules in the left upper and lower lobes (axial images 53, 61). ???Images through the upper abdomen reveal no abnormalities. ???Impression:No evidence of pulmonary embolus, aortic dissection, or aortic aneurysm. ???Extensive left upper lobe pneumonia. Follow-up to radiographic resolution advised. ???Underlying moderate to severe diffuse emphysema. ?? 12/15/2021 EXAMINATION: CT diagnostic chest wo con ?INDICATION: Lung nodules ?COMPARISON: PET/CT, 03/01/2017 ?FINDINGS: There is severe emphysema. There are multiple calcified nodules of the lungs, consistent with old granulomatous disease. There is a stable 7 mm noncalcified nodule in the superior segment of the left lower lobe on image 37. There is a 7 mm nodule of the left lower lobe on image 64 which previously measured 3 mm. Scarring is noted in the lung apices. There is no pleural effusion or pneumothorax. The lungs are free of acute opacities. No pathologically enlarged thoracic lymph nodes are identified. The heart size is normal. Punctate calcifications in an otherwise normal spleen likely represent healed granulomatous disease. There is mild thoracic spondylosis. There is severe upper lumbar spondylosis. ?IMPRESSION: ?1. 7 mm nodule of the left lower lobe with increase in size since the prior examination, granulomatous disease versus malignancy. Recommend follow-up CT in 3-6 months. Multiple additional stable pulmonary nodules with and without calcification likely reflect old granulomatous disease. ?2. Severe emphysema. ??11/02/2021:? PFTs ??The test was performed and results interpreted in accordance with the 2019 and 2005 ATS/ERS Task Force guidelines respectively using the Global Lung Function Initiative-2012 reference equations. Patient demonstrated good effort and cooperation. Reproducibility criteria were met. The quality of the pre bronchodilator spirometry maneuver was Grade A and post bronchodilator spirometry maneuver was Grade B. ??Findings: ??Spirometry:? There is decreased maximal expiratory airflow at all lung volumes with concave expiratory flow tracing.? The contour the inspiratory flow tracing is normal.? The pre bronchodilator FVC is 1.68 L, 68% predicted.? The pre bronchodilator FEV1 is 0.74 L, 38% predicted.? The pre bronchodilator FEV1:? FVC ratio is 44%.? The post bronchodilator FVC is 2.22 L, representing a 32% increase.? The post bronchodilator FEV1 is 0.68 L, representing a 7% decrease.? The post bronchodilator FEV1:? FVC ratio is 31%. ??Plethysmography:? The total lung capacity is 8.60 L, representing 187% predicted.? The functional residual capacity is 7.53 L, 287% predicted.? The residual volume is 6.45 L, 307% predicted. ??Diffusing Capacity:? The diffusing capacity unadjusted for hemoglobin and carboxyhemoglobin is 4.4, 23% predicted.? Diffusing capacity adjusted for alveolar volume is 1.34, 31% predicted. ??My impression:?There is a severe obstructive abnormality?with significant improvement after inhaling a single dose of albuterol. The increase in residual volume is consistent with air trapping from an obstructive abnormality.? Hyperinflation is present as demonstrated by the increase in functional residual capacity and total lung capacity and is consistent with an obstructive abnormality. The diffusing capacity unadjusted for hemoglobin and carboxyhemoglobin is severely decreased and remains severely decreased when adjusted for alveolar volume. ??There are no prior studies for comparison Review of Systems Constitutional: Constitutional: Reports no additional constitutional complaints Eyes: Eyes: Reports no additional eye complaints ENT: Reports system reviewed and no additional complaints, except as documented Cardiovascular: Cardiovascular: Reports no additional cardiovascular complaints Respiratory: Respiratory: Reports no additional respiratory complaints Gastrointestinal: Gastrointestinal: Reports no additional gastrointestinal complaints Musculoskeletal: Musculoskeletal: Reports no additional musculoskeletal complaints Neurologic: Reports system reviewed and no additional complaints, except as documented Psychiatric: Psychiatric: Reports no additional psychiatric complaints Endocrine: Endocrine: Reports no additional endocrine complaints Hematologic/Lymphatic: Hematologic/Lymphatic: Reports no additional hematologic/lymphatic complaints Allergic/Immunologic: Allergic/Immunologic: Reports no additional allergic/immunologic complaints Exam Narrative: patient is on BiPAP. Const: General: cooperative, healthy appearing and comfortable Orientation/consciousness: oriented to person, oriented to place and oriented to time HENMT: Head: normal to inspection Ears: hearing grossly normal bilaterally Eyes: General: appearance normal, both eyes and all related structures Neck: Neck: normal visual inspection Chest: Chest palpation & inspection: normal inspection of the chest Resp: Effort & Inspection: normal respiratory effort and able to speak in complete sentences Auscultation: no crackles, no rales, no rhonchi, no wheezes and diminished lung sounds Other: No wheezes today Cardio: Jugular venous distension: no JVD GI: Inspection: normal to inspection Skin: General skin exam: normal color Neuro: General: oriented to person, oriented to place and oriented to time Extrem: General: normal to inspection and no edema Psych: Appearance: grossly normal Objective Data Vital Signs Vital Signs: Vital Signs - 24 hr 10/17/24 15:01 10/17/24 15:01 10/17/24 15:05 Temperature Pulse Rate 90 90 95 Respiratory Rate 21 H 21 H 22 H Blood Pressure Pulse Oximetry 97 Oxygen Delivery BiPAP Oxygen Flow Rate Fraction of Inspired Oxygen 10/17/24 16:00 10/17/24 16:00 10/17/24 16:00 Temperature 36.6 C Pulse Rate 96 96 97 Respiratory Rate 28 H 28 H Blood Pressure 144/80 H Pulse Oximetry 99 99 Oxygen Delivery BiPAP Oxygen Flow Rate Fraction of Inspired Oxygen 10/17/24 17:05 10/17/24 18:00 10/17/24 19:36 Temperature 37.0 C Pulse Rate 102 H 100 95 Respiratory Rate 20 20 Blood Pressure 151/78 H Pulse Oximetry 95 96 Oxygen Delivery Nasal Cannula Oxygen Flow Rate 2 Fraction of Inspired Oxygen 10/17/24 20:00 10/17/24 20:45 10/17/24 21:07 Temperature Pulse Rate 92 97 82 Respiratory Rate 21 H Blood Pressure Pulse Oximetry Oxygen Delivery Oxygen Flow Rate Fraction of Inspired Oxygen 10/17/24 21:21 10/17/24 21:21 10/17/24 22:00 Temperature Pulse Rate 92 94 91 Respiratory Rate 22 H 26 H Blood Pressure Pulse Oximetry 97 Oxygen Delivery BiPAP Oxygen Flow Rate Fraction of Inspired Oxygen 10/18/24 00:00 10/18/24 00:04 10/18/24 00:06 Temperature Pulse Rate 87 84 99 Respiratory Rate 20 28 H Blood Pressure Pulse Oximetry 97 Oxygen Delivery BiPAP Oxygen Flow Rate Fraction of Inspired Oxygen 10/18/24 00:08 10/18/24 02:00 10/18/24 04:00 Temperature 36.6 C Pulse Rate 88 87 91 Respiratory Rate 21 H Blood Pressure 142/85 H Pulse Oximetry 98 Oxygen Delivery Oxygen Flow Rate Fraction of Inspired Oxygen 10/18/24 04:51 10/18/24 04:55 10/18/24 04:57 Temperature 36.4 C Pulse Rate 86 87 81 Respiratory Rate 22 H 24 H 24 H Blood Pressure 158/74 H Pulse Oximetry 98 97 Oxygen Delivery BiPAP Oxygen Flow Rate Fraction of Inspired Oxygen 10/18/24 05:57 10/18/24 07:35 10/18/24 08:00 Temperature 36.3 C L Pulse Rate 84 90 Respiratory Rate 23 H Blood Pressure 141/76 H Pulse Oximetry 97 97 Oxygen Delivery Nasal Cannula Oxygen Flow Rate 2 Fraction of Inspired Oxygen 10/18/24 08:43 10/18/24 08:43 10/18/24 09:19 Temperature Pulse Rate 99 97 Respiratory Rate 20 18 Blood Pressure Pulse Oximetry 97 Oxygen Delivery Nasal Cannula Oxygen Flow Rate 2 Fraction of Inspired Oxygen 10/18/24 11:20 10/18/24 12:00 10/18/24 12:37 Temperature 36.4 C L Pulse Rate 90 96 96 Respiratory Rate 20 22 H 22 H Blood Pressure 139/69 Pulse Oximetry 98 98 Oxygen Delivery Nasal Cannula Oxygen Flow Rate 2 Fraction of Inspired Oxygen 10/18/24 12:44 10/18/24 12:45 10/18/24 13:43 Temperature Pulse Rate 96 Respiratory Rate 22 H Blood Pressure Pulse Oximetry 96 Oxygen Delivery BiPAP BiPAP BiPAP Oxygen Flow Rate Fraction of Inspired Oxygen Intake/Output Intake/Output: Intake & Output 10/15/24 10/16/24 10/17/24 10/18/24 23:59 23:59 23:59 23:59 Intake Total 20020 1340 540 Output Total 700 800 Balance 1353 330 540 540 Meds/Results Medications: Active Medications Generic Name Dose Route Start Last Admin Trade Name Freq PRN Reason Stop Dose Admin Acetaminophen 650 mg 10/12/24 20:30 10/18/24 00:32 Acetaminophen 325 Mg Tablet PO 650 mg Q4H PRN Administration Mild Pain (1-3) or Fever Alprazolam 0.25 mg 10/17/24 08:50 Alprazolam (*Crx) 0.25 Mg Tablet PO Q6H PRN Anxiety Dextrose 12.5 gm 10/12/24 20:30 Dextrose 50% 25 Gm/50 Ml Syringe IV PUSH PRN PRN Hypoglycemia Protocol Diltiazem HCl 120 mg 10/13/24 09:00 10/18/24 08:27 Diltiazem Hcl Cd 120 Mg Cap.24hr PO 120 mg DAILY ANIYA Administration Flecainide Acetate 100 mg 10/13/24 17:40 10/18/24 08:27 Flecainide Acetate 100 Mg Tablet PO 100 mg Q12HR ANIYA Administration Glucose 15 gm 10/12/24 20:30 Glucose Oral Gel 15 Gm Of Glucse In 37.5 Gm Tube PO PRN PRN Hypoglycemia Protocol Guaifenesin 1,200 mg 10/14/24 21:00 10/18/24 08:26 Guaifenesin 12 Hr 600 Mg Tabcr PO 1,200 mg Q12HR ANIYA Administration Hydralazine HCl 10 mg 10/17/24 08:50 Hydralazine Hcl 20 Mg/Ml Vial IV PUSH Q6H PRN Blood Pressure - High Dextrose 1,000 mls @ 100 mls/hr 10/12/24 20:30 Dextrose 5% 1,000 Ml IVPB PRN PRN Hypoglycemia Protocol Ipratropium [place] 0.5 mg 10/13/24 05:46 10/13/24 06:00 Ipratropium Br 0.02% Inh Soln 0.5 Mg/2.5 Ml Vial INHALATION 0.5 mg Q6HRT PRN Administration Shortness Of Breath Ipratropium [place] 0.5 mg 10/14/24 16:00 10/18/24 12:37 Ipratropium Br 0.02% Inh Soln 0.5 Mg/2.5 Ml Vial INHALATION 0.5 mg Q4HRT ANIYA Administration Levalbuterol HCl 1.25 mg 10/13/24 05:46 10/13/24 06:00 Levalbuterol Neb 1.25 Mg/3 Ml INHALATION 1.25 mg Q6HRT PRN Administration Shortness Of Breath Or Wheezing Levalbuterol HCl 0.63 mg 10/14/24 16:00 10/18/24 12:37 Levalbuterol Neb 1.25 Mg/3 Ml INHALATION 0.63 mg Q4HRT ANIYA Administration Magnesium Oxide 400 mg 10/15/24 09:00 10/17/24 08:31 Magnesium Oxide 400 Mg Tablet PO 400 mg DAILY ANIYA Administration Mirabegron 25 mg 10/13/24 09:00 10/18/24 08:27 Mirabegron 25 Mg Er Tablet PO 25 mg DAILY ANIYA Administration Polyethylene Glycol 17 gm 10/16/24 18:15 10/18/24 08:27 Polyethylene Glycol 3350 17 Gm Powd.Pack PO 17 gm QAM ANIYA Administration Pravastatin Sodium 20 mg 10/12/24 23:40 10/17/24 20:45 Pravastatin Sodium 20 Mg Tablet PO 20 mg HS ANIYA Administration Rivaroxaban 15 mg 10/14/24 21:00 10/17/24 20:45 Rivaroxaban 15 Mg Tablet PO 15 mg 2100 ANIYA Administration Senna/Docusate Sodium 1 tab 10/16/24 18:25 10/18/24 08:27 Senna/Docusate Sodium Tablet PO 1 tab BID ANIYA Administration Radiology Results: ITS Impressions Chest CT 10/12/24 19:30 IMPRESSION: Scattered small, likely infectious/inflammatory foci, overlying a background of severe emphysematous change and largely stable areas of parenchymal scarring. Mild esophagitis/gastritis. Hepatic steatosis. Chest X-Ray 10/16/24 08:47 Impression: 1: No acute cardiopulmonary disease. No significant interval change. Venous Doppler Study 10/16/24 11:25 IMPRESSION: 1. No deep venous thrombosis. Labs Labs: Laboratory Results - last 24 hr 10/14/24 20:24 Ur L.pneumophila Ag Not detected Urine Pneumococcal Ag Not detected
[2024-10-18] MEDS: PRAVASTATIN SODIUM 20 MG TABLET PO (20:27)
[2024-10-18] MEDS: RIVAROXABAN 15 MG TABLET PO (20:27)
[2024-10-18 21:47] LABS: Mycoplasma IgM Antibody Titer 49 U/mL
[2024-10-19] VITALS (31 sets, daily range): BP systolic 139–149; BP diastolic 58–81; PULSE 86–104; RESP 18–28; TEMP 36.1–37; O2SAT 94–99
[2024-10-19] MEDS: IPRATROPIUM BR 0.02% INH SOLN 0.5 MG/2.5 ML VIAL INHALATION ×5 (00:45→21:04)
[2024-10-19] MEDS: LEVALBUTEROL NEB 1.25 MG/3 ML 0.63 MG INHALATION ×5 (00:45→21:04)
[2024-10-19] MEDS: FLECAINIDE ACETATE 100 MG TABLET PO ×2 (08:28→20:37)
[2024-10-19] MEDS: dilTIAZem HCL CD 120 MG CAP.24HR PO (08:28)
[2024-10-19] MEDS: MIRABEGRON 25 MG ER TABLET PO (08:29)
[2024-10-19] MEDS: guaiFENesin 12 HR 600 MG TABCR 1200 MG PO ×2 (08:29→20:37)
[2024-10-19] MEDS: ACETAMINOPHEN 325 MG TABLET 650 MG PO (08:29)
[2024-10-19] MEDS: MAGNESIUM OXIDE 400 MG TABLET PO (08:29)
--- NOTE | 2024-10-19 10:10 | P.PNIM_ITS ---
Progress Note: A&P Assessment and Plan (1) Lactic acidosis: Code(s): E87.20 - Acidosis, unspecified Status: Acute (2) Sepsis: Code(s): A41.9 - Sepsis, unspecified organism Status: Acute (3) Acute on chronic respiratory failure with hypoxia and hypercapnia: Code(s): J96.21 - Acute and chronic respiratory failure with hypoxia; J96.22 - Acute and chronic respiratory failure with hypercapnia Status: Acute (4) Respiratory syncytial virus (RSV): Qualifiers: RSV infection type: unspecified Qualified Code(s): B33.8 - Other specified viral diseases Code(s): B33.8 - Other specified viral diseases Status: Acute Plan This is a 74-year-old female with a past medical history prior tobacco abuse, COPD and chronic respiratory failure on 3 L nasal cannula continuously, atrial fibrillation on Xarelto, hypertension, hypercholesterolemia, polycythemia secondary to hypoxia, pulmonary nodule. She is accompanied by her who she lives with and her daughter. The patient quit smoking 2 years prior and has not been hospitalized since then either. She has been in her normal state of health and does not frequently use her inhalers or nebulizers. In the past 2 days she has used them multiple times due to shortness of breath and a cough productive of green/whitfield sputum. She denies chest pain. On 10/11/2024 the patient presents to [facility] due to severe difficulty breathing. ER nurse practitioner note patient was tripoding on arrival. Tachypnea with respiratory rate 24-27. Vitals otherwise stable. WBC 14.4, hemoglobin 15.4, . Acute on chronic respiratory failure with hypoxia and hypercapnia Patient has chronic respiratory failure Upon arrival in the ED, patient has worsening O2 desaturation, ABG demonstrated hypercapnic, hypoxemic respiratory failure patient has been on BiPAP since arrival Repeat ABG showed improvement symptoms retention Continue current managements COPD exacerbation RSV infection. Suspected bacterial pneumonia on vancomycin ceftriaxone and azithromycin, Solu-Medrol 125 mg IV push x1, 2 L normal saline bolus, Patient is on DuoNeb scheduled, albuterol nebulizer. Received Methylprednisolone completed treatment on October 15 Finish antibiotic treatment 10/16 Appreciate pulmonary consultation, follow recommendations Acute renal failure due to Dehydration and sepsis BUN 25, serum creatinine 1.28, baseline creatinine 0.7 Received fluid resuscitation Kidney function improving Discontinue normal saline 75 mL/hour Severe sepsis without shock lactic acidosis with end-organ damage, acute hypoxic respiratory failure and acute kidney injury Resolved Paroxysmal atrial fibrillation on Xarelto, Cardizem 120 mg daily p.o. And flecainide 100 mg b.i.d. p.o. Follow-up echocardiogram 1. Complete two-dimensional, color flow and Doppler transthoracic echocardiogram is performed. 2. There is normal biventricular size and systolic function. 3. There is no significant valvular disease. 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 Patient wishes to be full code. Home medications will be restarted as appropriate if indicated. Subjective Date/time seen: 10/19/24 10:10 Interval history: I saw examined patient today. Patient feels better today, appetite continue to improve, patient has a bowel movement yesterday today. 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 Patient still has some cough scant phlegm, significant dyspnea at rest. But denies chest pain abdomen pain nausea vomiting diarrhea. Patient afebrile, blood pressure stable. Exam Narrative: GENERAL: Ill-appearing in no acute distress. Moderate malnutrition - EYES: EOMI. Anicteric. - HENT: Moist mucous membranes. - LUNGS: Distant breath sound bilateral , coarse breath sound bilaterally, no wheezing - CARDIOVASCULAR: Regular rate and rhyth m. No murmur. No JVD. - ABDOMEN: Soft, non-tender and non-dist ended. No palpable masses. - EXTREMITIES: No edema. Peripheral puls es 2+. Non-tender. - NEUROLOGIC: No focal neurological defi cits. CN II-XII grossly intact. General weakness - PSYCHIATRIC: Awake, Alert and oriented x 3. Appropriate mood and affect. - SKIN: No rashes or lesions. Warm. - LYMPH: No cervical lymphadenopathy. Objective Data Vital Signs Vital Signs: Vital Signs - 24 hr 10/18/24 11:20 10/18/24 12:00 10/18/24 12:00 Temperature 97.5 F L Pulse Rate 90 96 98 Respiratory Rate 20 22 H Blood Pressure 139/69 Pulse Oximetry 98 98 Oxygen Delivery Nasal Cannula Oxygen Flow Rate 2 Fraction of Inspired Oxygen 10/18/24 12:37 10/18/24 12:44 10/18/24 12:45 Temperature Pulse Rate 96 96 Respiratory Rate 22 H 22 H Blood Pressure Pulse Oximetry 96 Oxygen Delivery BiPAP BiPAP Oxygen Flow Rate Fraction of Inspired Oxygen 10/18/24 13:43 10/18/24 14:00 10/18/24 14:40 Temperature Pulse Rate 99 Respiratory Rate Blood Pressure Pulse Oximetry 98 Oxygen Delivery BiPAP Nasal Cannula Oxygen Flow Rate 2 Fraction of Inspired Oxygen 10/18/24 15:37 10/18/24 15:41 10/18/24 15:55 Temperature Pulse Rate 96 93 94 Respiratory Rate 18 20 Blood Pressure Pulse Oximetry 100 Oxygen Delivery Oxygen Flow Rate Fraction of Inspired Oxygen 10/18/24 16:00 10/18/24 16:00 10/18/24 16:00 Temperature 97.5 F L Pulse Rate 98 98 98 Respiratory Rate 18 18 Blood Pressure 147/70 H Pulse Oximetry 98 98 Oxygen Delivery Nasal Cannula Oxygen Flow Rate 2 Fraction of Inspired Oxygen 10/18/24 18:00 10/18/24 19:58 10/18/24 20:00 Temperature Pulse Rate 96 96 90 Respiratory Rate 18 Blood Pressure Pulse Oximetry 98 Oxygen Delivery Nasal Cannula Oxygen Flow Rate 2 Fraction of Inspired Oxygen 10/18/24 20:27 10/18/24 20:38 10/18/24 21:48 Temperature 97.9 F Pulse Rate 95 94 89 Respiratory Rate 27 H 18 Blood Pressure 145/88 H Pulse Oximetry 95 Oxygen Delivery Oxygen Flow Rate Fraction of Inspired Oxygen 10/18/24 21:52 10/18/24 22:00 10/18/24 22:00 Temperature Pulse Rate 94 90 Respiratory Rate 20 Blood Pressure Pulse Oximetry 97 Oxygen Delivery Nasal Cannula Oxygen Flow Rate 2 Fraction of Inspired Oxygen 10/18/24 22:30 10/19/24 00:00 10/19/24 00:21 Temperature 98.6 F Pulse Rate 96 89 94 Respiratory Rate 21 H 20 Blood Pressure 149/76 H Pulse Oximetry 97 99 Oxygen Delivery BiPAP Oxygen Flow Rate Fraction of Inspired Oxygen 10/19/24 00:30 10/19/24 00:45 10/19/24 00:45 Temperature Pulse Rate 94 95 95 Respiratory Rate 20 19 19 Blood Pressure Pulse Oximetry 99 97 Oxygen Delivery Nasal Cannula BiPAP Oxygen Flow Rate 2 Fraction of Inspired Oxygen 10/19/24 00:53 10/19/24 02:00 10/19/24 04:00 Temperature Pulse Rate 91 95 95 Respiratory Rate 18 18 Blood Pressure Pulse Oximetry 97 Oxygen Delivery BiPAP Oxygen Flow Rate Fraction of Inspired Oxygen 10/19/24 04:00 10/19/24 04:04 10/19/24 04:05 Temperature Pulse Rate 94 94 94 Respiratory Rate 20 20 Blood Pressure Pulse Oximetry 97 Oxygen Delivery BiPAP Oxygen Flow Rate Fraction of Inspired Oxygen 10/19/24 04:15 10/19/24 04:18 10/19/24 06:00 Temperature 97.9 F Pulse Rate 92 97 96 Respiratory Rate 20 24 H Blood Pressure 148/75 H Pulse Oximetry 95 Oxygen Delivery Oxygen Flow Rate Fraction of Inspired Oxygen 10/19/24 07:47 10/19/24 08:28 10/19/24 08:55 Temperature 98.2 F Pulse Rate 103 H 104 H 97 Respiratory Rate 20 21 H Blood Pressure 143/64 H Pulse Oximetry 97 97 Oxygen Delivery BiPAP Oxygen Flow Rate Fraction of Inspired Oxygen 10/19/24 09:01 10/19/24 09:01 10/19/24 09:25 Temperature Pulse Rate 98 94 Respiratory Rate 18 22 H Blood Pressure Pulse Oximetry 99 Oxygen Delivery Nasal Cannula Oxygen Flow Rate 2 Fraction of Inspired Oxygen Intake/Output Intake/Output: Intake & Output 10/16/24 10/17/24 10/18/24 10/19/24 23:59 23:59 23:59 23:59 Intake Total 1030 1340 1180 360 Output Total 700 800 200 100 Balance 330 540 980 260 Meds/Results Medications: Active Medications Generic Name Dose Route Start Last Admin Trade Name Freq PRN Reason Stop Dose Admin Acetaminophen 650 mg 10/12/24 20:30 10/19/24 08:29 Acetaminophen 325 Mg Tablet PO 650 mg Q4H PRN Administration Mild Pain (1-3) or Fever Alprazolam 0.25 mg 10/17/24 08:50 Alprazolam (*Crx) 0.25 Mg Tablet PO Q6H PRN Anxiety Dextrose 12.5 gm 10/12/24 20:30 Dextrose 50% 25 Gm/50 Ml Syringe IV PUSH PRN PRN Hypoglycemia Protocol Diltiazem HCl 120 mg 10/13/24 09:00 10/19/24 08:28 Diltiazem Hcl Cd 120 Mg Cap.24hr PO 120 mg DAILY ANIYA Administration Flecainide Acetate 100 mg 10/13/24 17:40 10/19/24 08:28 Flecainide Acetate 100 Mg Tablet PO 100 mg Q12HR ANIYA Administration Fluticasone/Umeclidinium/Vilanterol 1 puff 10/19/24 10:00 Fluticasone/Umeclidin/Vilanter 100-62.5-25 Mcg Ellipta INHALATION DAILYRT ANIYA Glucose 15 gm 10/12/24 20:30 Glucose Oral Gel 15 Gm Of Glucse In 37.5 Gm Tube PO PRN PRN Hypoglycemia Protocol Guaifenesin 1,200 mg 10/14/24 21:00 10/19/24 08:29 Guaifenesin 12 Hr 600 Mg Tabcr PO 1,200 mg Q12HR ANIYA Administration Hydralazine HCl 10 mg 10/17/24 08:50 Hydralazine Hcl 20 Mg/Ml Vial IV PUSH Q6H PRN Blood Pressure - High Dextrose 1,000 mls @ 100 mls/hr 10/12/24 20:30 Dextrose 5% 1,000 Ml IVPB PRN PRN Hypoglycemia Protocol Ipratropium [place] 0.5 mg 10/19/24 09:54 Ipratropium Br 0.02% Inh Soln 0.5 Mg/2.5 Ml Vial INHALATION Q4HRT PRN Shortness Of Breath Levalbuterol HCl 1.25 mg 10/13/24 05:46 10/13/24 06:00 Levalbuterol Neb 1.25 Mg/3 Ml INHALATION 1.25 mg Q6HRT PRN Administration Shortness Of Breath Or Wheezing Levalbuterol HCl 0.63 mg 10/19/24 09:54 Levalbuterol Neb 1.25 Mg/3 Ml INHALATION Q4HRT PRN Wheezing Magnesium Oxide 400 mg 10/15/24 09:00 10/19/24 08:29 Magnesium Oxide 400 Mg Tablet PO 400 mg DAILY ANIYA Administration Mirabegron 25 mg 10/13/24 09:00 10/19/24 08:29 Mirabegron 25 Mg Er Tablet PO 25 mg DAILY ANIYA Administration Polyethylene Glycol 17 gm 10/16/24 18:15 10/19/24 08:30 Polyethylene Glycol 3350 17 Gm Powd.Pack PO Not Given QAM ANIYA Pravastatin Sodium 20 mg 10/12/24 23:40 10/18/24 20:27 Pravastatin Sodium 20 Mg Tablet PO 20 mg HS ANIYA Administration Rivaroxaban 15 mg 10/14/24 21:00 10/18/24 20:27 Rivaroxaban 15 Mg Tablet PO 15 mg 2100 [facility] Administration Senna/Docusate Sodium 1 tab 10/16/24 18:25 10/19/24 08:29 Senna/Docusate Sodium Tablet PO Not Given BID [facility] Radiology Results: ITS Impressions Chest CT 10/12/24 19:30 IMPRESSION: Scattered small, likely infectious/inflammatory foci, overlying a background of severe emphysematous change and largely stable areas of parenchymal scarring. Mild esophagitis/gastritis. Hepatic steatosis. Chest X-Ray 10/16/24 08:47 Impression: 1: No acute cardiopulmonary disease. No significant interval change. Venous Doppler Study 10/16/24 11:25 IMPRESSION: 1. No deep venous thrombosis. Labs Labs: Laboratory Results - last 24 hr 10/15/24 04:46 Mycoplasma pneumon IgM 49
[2024-10-19 10:39] LABS: Hematocrit 41.5 % (37.0-47.0); Hemoglobin 13.1 g/dL (12.0-15.0); Mean Corpuscular HGB Conc 31.6 g/dl (32-36); Mean Corpuscular Hemoglobin 30.8 pg (26-34); Mean Corpuscular Volume 97.6 fl (80-100); Mean Platelet Volume 10.7 fl (7.4-10.4); Platelet Count Result 223 k/mm3 (150-375); Red Blood Count 4.25 M/mm3 (4.2-5.4); Red Cell Distribution Width 13.2 % (11.5-14.5); White Blood Count 14.3 K/mm3 (4.5-10.0)
[2024-10-19 10:57] LABS: Anion Gap 5 mmol/L (4-12); Blood Urea Nitrogen 18 mg/dL (7-17); Calcium 9.1 mg/dL (8.4-10.2); Carbon Dioxide 38 mmol/L (22-30); Chloride 97 mmol/L (98-107); Estimated CRCL calculation 45 ml/min; Estimated Glomerular Filt Rate > 60; Glucose 132 mg/dL (65-110); Potassium 3.6 mmol/L (3.4-5.0); Sodium 140 mmol/L (137-145)
--- NOTE | 2024-10-19 11:04 | PM.PNPUL ---
Progress Note: A&P Assessment and Plan (1) Respiratory syncytial virus (RSV): Qualifiers: RSV infection type: unspecified Qualified Code(s): B33.8 - Other specified viral diseases Code(s): B33.8 - Other specified viral diseases Status: Acute Assessment and Plan: Patient tested positive for RSV 10/12/24. Patient is had worsening work of breathing without hypercarbic respiratory failure on BiPAP. Most recent ABG on BiPAP 12/6 on 10/13/24 was 7.32/42/105. 10/14/2024: The patient says she is better. She was only able to tolerate 10 minutes off the BiPAP to eat lunch. Currently she is on BiPAP rate of 4 breathing 20, pressures 12/6 with tidal volumes 447 and 30% FiO2 with saturations 98%. She said the BiPAP was uncomfortable and I changed her to a noninvasive ventilation with the AVAPS mode rate of 14, tidal volume 450, EPAP 5, minimal inspiratory pressure 6, maximal inspiratory pressure 25, rise of 1 fastest, inspiratory time 1.0, FiO2 28%. She said these settings were more comfortable. Today are white blood cell count is 19.0, creatinine 0.81. Approximately 1 hour later patient had worsening respiratory distress stating that the BiPAP for rate of 4 pressures 12/6 was better for her and she was switched back to this. Plan: Treatment for RSV pneumonia is supportive. Initially did better with AVAPS mode but then requested to go back on straight BiPAP as this was more comfortable for her. Agree with treatment for other possible conditions including COPD exacerbation, bacterial pneumonia, and cardiac conditions. Echocardiogram with normal biventricular size and function. No significant valvular disease, left atrium is normal. The right atrium is normal. RVSP 37%. 10/15/24: patient has remained on BiPAP overnight. She tolerated being off BiPAP and on 4 L for 25 minutes this morning prior to breakfast and for 20 minutes at breakfast time. Currently she denies shortness of breath and is on the BiPAP and says she is comfortable. BNP is 998. Procalcitonin is decreased from 0.3 on 10/13 to 0.1 today. she is awake and following commands. Plan: Continue supportive treatment with BiPAP for work of breathing. goal saturation 90-94% was supplemental oxygen as required. She is empirically being treated for bacterial infection with ceftriaxone day 4 and azithromycin followed by doxycycline day 4. She is afebrile with no leukocytosis and her procalcitonin is decreasing. Will discontinue antibiotics tomorrow. 10/16/24: Overall patient tells me she is little bit better. She has remained essentially BiPAP dependent other than taking this off for 20-30 minutes a time 4 times yesterday To eat meals and take medicines. currently she is on BiPAP rate of 4 breathing 22, 12/, tidal volume 541 25% FiO2 saturations 99%. When she comes off of BiPAP she oxygenates on 4 L nasal cannula. she is afebrile.Her white blood cell count 19.0. Chest x-ray with no focal infiltrates, no pleural effusions, no pneumothorax. No change from 10/12/2024. Plan: Continue supportive care treatment with BiPAP for work of breathing. Goal saturation 90-94%. day 5 of ceftriaxone and doxycycline, No evidence of bacterial infection and will discontinue after today's dose. 10/17/2024: Patient feels a little bit better. Detailed notes by the daughter in the room shows that she was off the BiPAP yesterday for 8 hours and 5 minutes. Currently she is on BiPAP 25% with saturations 97%. She is afebrile. White blood cell count 12.8, creatinine 0.74. Weight is 50.4, cumulative she is 6.9 L positive since admission. Plan: continue supportive care with BiPAP for work of breathing. She is stable off the antibiotics since yesterday. 10/18/24: Patient is off BiPAP for 8 hours and 35 minutes yesterday. Currently she is off BiPAP. She states she is a little better each day. She is afebrile. Patient is on 2 L with saturations 96% and comfortable. Yesterday she was positive 540 mL. Her weight today is 50 kg. Overall she is 7.8 L positive from admission. She had a bowel movement last night and this helped her breathing. Plan: Supportive care with BiPAP p.r.n. for support. Remains stable off of antibiotics for 48 hours. 10/19/2024: Patient was on the BiPAP for 10 hours and 10 minutes yesterday. she tolerates nasal cannula 2 L. overall she says she is getting a little stronger each day and breathing a little better. Her cough persists. She has a little phlegm with no hemoptysis. She is afebrile. White blood cell count 14.3, creatinine 0.73. She was positive 980 mL yesterday. Cumulative she is 8.4 L positive. Her weight today is 50.4 with an admission weight of 49. I took her off the BiPAP this morning and placed her on 2 L nasal cannula her saturations were 98%. Plan: Supportive care with BiPAP as needed. Will check a chest x-ray in the morning. Goal saturation 90-94% and on 2 L she was 98%. Wean as tolerated. Discussed with Dr. Abbasi. Will follow with you. (2) COPD (chronic obstructive pulmonary disease): Code(s): J44.9 - Chronic obstructive pulmonary disease, unspecified Status: Acute Assessment and Plan: Patient with a history of 47 pack year tobacco use, Alpha 1 anti trypsin genotype MM, PFTs 11/02/2021 with a severe obstructive abnormality, FEV 1 is 0.74 L, 38% predicted, bronchodilator response, air trapping, hyperinflation and a DLCO that was severely decreased when adjusted for alveolar volume, 1st CT scan of the chest in our system from 12/14/2021 with severe panlobular emphysema throughout all lung christians[place], hypoxic respiratory failure requiring 2 L at rest, with ambulation and with sleep. No evidence of hypercarbic respiratory failure dating back to 01/17/2022 with a blood gas of 7.36/43/64 on room air. Echocardiogram with tricuspid regurgitation peak gradient 42 on 06/11/2022. She developed a multifocal necrotic pneumonia on 08/30/2022 and completed 6 weeks of antibiotics on 10/16/2022. Outpatient exacerbation 10/2023 and 12/2023. 10/24/2022 with CBC with white blood cell count 14.4, eosinophils 0%. 09/24/2022 CBC with white blood cell count 9.6, eosinophils 0.2%=19.2. 10/12/2024: BNP 743. 10/13/24: Procalcitonin 0.3. 10/14/24: Plan: Patient had been on Solu-Medrol 40 mg IV q.6 hours, day 3 of systemic steroids. I will decrease to 20 mg IV q.6. Continue ipratropium and levalbuterol and will increase the frequency to q.4 hours. Discontinue trelegy as patient is on maximal dose beta agonist, muscarinic antagonists and steroids. I will place the patient on guaifenesin 1200 mg p.o. b.i.d. and give her 2 600 mg tablets because she cannot swallow the 1200 mg tablets. Patient currently treated for bacterial pneumonia with ceftriaxone day 3, and azithromycin 1 dose on 10/12/2024 followed by doxycycline now day 2. I will send urine for Legionella, urine for pneumococcal and serum mycoplasma IgM. MRSA swab is negative. weight today is 46.7 with an admission weight of 49 . since admission she is 5.1 L positive. will check BnP on 10/15/2024. 10/15 Patient has no wheezing today. Plan: Today is day 4 of systemic steroids and I will give her 40 mg of prednisone tomorrow and then discontinue. Continue ipratropium and levalbuterol q.4 hours. Continue guaifenesin 1200 mg p.o. q.12 hours. 10/16/24: Mild expiratory wheezes today. Swelling of the left upper extremity Plan: Today is day 5 of systemic steroids and currently on 40 mg p.o.. Will continue. Continue ipratropium and levalbuterol nebulizers q.4 hours. Continue guaifenesin 1200 mg p.o. q.12 hours. I will order left upper extremity Doppler. 10/17/2024: No wheezes today. Upper extremity Dopplers negative for DVT Plan: I will discontinue steroids after today's dose. 10/18/24: Patient is stable with no wheezes. Off of steroids for 24 hours. Plan: Continue levalbuterol and ipratropium nebulizers q.4 hours. Could continue guaifenesin 1200 mg p.o. b.i.d.. 10/19/2024: The patient states that when she takes the nebulizers off the BiPAP this fatigue her she requested to be put back on the BiPAP just to get her nebulizer. She thinks she could tolerate her home breztri. breztri has worked better than trelegy in the past. plan: I will make her nebulizers p.r.n. and the family is brought in her home breztri and I will initiate this. Subjective Date/time seen: 10/19/24 11:04 Interval history: 10/14/2024: This is a new pulmonary consult for COPD with RSV pneumonia. Patient has a history of GOLD grade 3 group B COPD On home oxygen, atrial fibrillation on Xarelto, hypertension, hyperlipidemia and followed [facility] the [facility] in last seen on 06/26/2024: Regarding her COPD, patient with a history of 47 pack year tobacco use, Alpha 1 anti trypsin genotype MM, PFTs 11/02/2021 with a severe obstructive abnormality, FEV 1 is 0.74 L, 38% predicted, bronchodilator response, air trapping, hyperinflation and a DLCO that was severely decreased when adjusted for alveolar volume, 1st CT scan of the chest in our system from 12/14/2021 with severe panlobular emphysema throughout all lung christianson, hypoxic respiratory failure requiring 2 L at rest, with ambulation and with sleep. No evidence of hypercarbic respiratory failure dating back to 01/17/2022 with a blood gas of 7.36/43/64 on room air. Echocardiogram with tricuspid regurgitation peak gradient 42 on 06/11/2022. She developed a multifocal necrotic pneumonia on 08/30/2022 and completed 6 weeks of antibiotics on 10/16/2022. Outpatient exacerbation 10/2023 and 12/2023. 10/24/2022 with CBC with white blood cell count 14.4, eosinophils 0%. 09/24/2022 CBC with white blood cell count 9.6, eosinophils 0.2%=19.2. recently she has been wearing 2.5 L at rest, 2.5 L with activity and 3 L at night. 09/03/2024: Patient called with bronchitis, shortness of breath, productive cough with brown phlegm and was treated with amoxicillin and prednisone. Patient tells me she improved but did not completely get back to her normal. 10/08/2024: Patient called and stated she is having cough, chest congestion, increased phlegm production, sore throat, using Mucinex and this helps her cough up her phlegm. She is having no fever no wheezes. She states this feels like her bronchitis. I will prescribe azithromycin x5 days. 10/12/2024 patient presented to the emergency department with shortness of breath, fevers and respiratory distress. Blood pressure is 179/79, heart rate 119, saturations on 3 L 77%. Placement was started on BiPAP. White blood cell count 7.8, eosinophils 0, creatinine 0.95, BNP 743, COVID, influenza RT PCR negative. RSV RT PCR positive. MRSA swab negative. ABG on BiPAP 7.26/51/106. CT scan of the chest showed severe panlobular emphysema, stable scarring right upper lobe and left upper lobe no pleural effusions and no ground-glass infiltrates. Patient was admitted to the hospital and treated empirically for RSV, pneumonia and COPD exacerbation. 10/13/2024: ABG on BiPAP 12/6 and 30% FiO2 was 7.32/42/105. 10/14/2024: The patient says she is better. She was only able to tolerate 10 minutes off the BiPAP to eat lunch. Currently she is on BiPAP rate of 4 breathing 20, pressures 12/6 with tidal volumes 447 and 30% FiO2 with saturations 98%. She said the BiPAP was uncomfortable and I changed her to a noninvasive ventilation with the AVAPS mode rate of 14, tidal volume 450, EPAP 5, minimal inspiratory pressure 6, maximal inspiratory pressure 25, rise of 1 fastest, inspiratory time 1.0, FiO2 28%. She said these settings were more comfortable. Today are white blood cell count is 19.0, creatinine 0.81. Approximately 1 hour later patient had worsening respiratory distress stating that the BiPAP for rate of 4 pressures 12/6 was better for her and she was switched back to this. 10/15/24: patient has remained on BiPAP overnight. She tolerated being off BiPAP and on 4 L for 25 minutes this morning prior to breakfast and for 20 minutes at breakfast time. Currently she denies shortness of breath and is on the BiPAP and says she is comfortable. BNP is 998. Procalcitonin is decreased from 0.3 on 10/13 to 0.1 today. she is awake and following commands. 10/16/24: Overall patient tells me she is little bit better. She has remained essentially BiPAP dependent other than taking this off for 20-30 minutes a time 4 times yesterday To eat meals and take medicines. currently she is on BiPAP rate of 4 breathing 22, 12/6, tidal volume 541 25% FiO2 saturations 99%. When she comes off of BiPAP she oxygenates on 4 L nasal cannula. she is afebrile.Her white blood cell count 19.0. Chest x-ray with no focal infiltrates, no pleural effusions, no pneumothorax. No change from 10/12/2024. 10/17/2024: Patient feels a little bit better. Detailed notes by the daughter in the room shows that she was off the BiPAP yesterday for 8 hours. Currently she is on BiPAP 25% with saturations 97%. She is afebrile. White blood cell count 12.8, creatinine 0.74. Weight is 50.4, cumulative she is 6.9 L positive since admission. 10/18/24: Patient is off BiPAP for 8 hours and 35 minutes yesterday. Currently she is off BiPAP. She states she is a little better each day. She is afebrile. Patient is on 2 L with saturations 96% and comfortable. Yesterday she was positive 540 mL. Her weight today is 50 kg. Overall she is 7.8 L positive from admission. She had a bowel movement last night and this helped her breathing. 10/19/2024: Patient was on the BiPAP for 10 hours and 10 minutes yesterday. she tolerates nasal cannula 2 L. overall she says she is getting a little stronger each day and breathing a little better. Her cough persists. She has a little phlegm with no hemoptysis. She is afebrile. White blood cell count 14.3, creatinine 0.73. She was positive 980 mL yesterday. Cumulative she is 8.4 L positive. Her weight today is 50.4 with an admission weight of 49. I took her off the BiPAP this morning and placed her on 2 L nasal cannula her saturations were 98%. ? DATA: 10/14/2024: Echo Summary 1. Complete two-dimensional, color flow and Doppler transthoracic echocardiogram is performed. 2. There is normal biventricular size and systolic function. 3. There is no significant valvular disease. Left Ventricle The left ventricle is normal in size and systolic function. The left ventricular ejection fraction is visually estimated to be 65-70%. Right Ventricle The right ventricle is normal in size and systolic function. Left Atria The left atrium is normal size. Right Atria The right atrium is normal size. RVSP 37 10/12/24: EXAMINATION: CT diagnostic chest w con INDICATION: sob, copd hypoxia, cough COMPARISON: 08/19/2024; x-ray chest 10/12/2024. FINDINGS: CHEST: Thoracic aorta: No significant dilation. No dissection. Moderate atherosclerotic plaque. Lung parenchyma and airways: Biapical pleural scarring. Stable irregular nodular scarring in the bilateral upper lobes and superior segment of the left lower lobe. Scattered smaller areas of scarring peripherally and in the bases. Small foci of tree-in-bud like opacities in the right middle lobe and lingula. Emphysematous change. Calcified left lower lobe granuloma. Patent airways. Thoracic inlet, axillae and chest wall: No thyroid or soft tissue mass. No axillary lymphadenopathy. Mediastinum: No mass or lymphadenopathy. Heart and pericardium: Normal heart size. No pericardial effusion. Coronary artery calcifications: Mild. Pleura: No effusion or mass. Upper abdomen: Mild distal esophageal and gastric wall edema. Diffuse fatty infiltration of the liver. Thoracic bones: No acute osseous finding in the chest. Stable mild compression deformities in the thoracic spine. IMPRESSION: Scattered small, likely infectious/inflammatory foci, overlying a background of severe emphysematous change and largely stable areas of parenchymal scarring. Mild esophagitis/gastritis. Hepatic steatosis. 02/20/2024: EXAMINATION:CT diagnostic chest wo con INDICATION: Solitary pulmonary nodule. COMPARISON: Chest CT 09/08/2023, 03/09/2023, 09/08/2022 FINDINGS: There is severe emphysema. There is chronic scarring in left upper lobe. There are perihilar airspace opacities with volume loss in right upper lobe with improvement from 09/08/2023 and 03/09/2023. There are mild airspace opacities in superior segment left lower lobe with worsening from 09/08/2023. There is mild scarring in right lower lobe. There is a 7 mm nodule in left lower lobe, stable from 09/08/2022, likely benign. No pleural effusion. The heart size is normal. There are coronary artery calcifications. No pericardial effusion. Calcifications in the spleen are consistent with old granulomatous disease. There are stones in the kidneys measuring up to 6 mm on the right. There is mild chronic height loss of multiple vertebral bodies. There is mild thoracic spondylosis and severe lumbar spondylosis. IMPRESSION: 1. Continued improvement in perihilar airspace opacities in right upper lobe, consistent with chronic pneumonia. 2. Worsened mild airspace opacities in superior segment left lower lobe, consistent with pneumonia. 3. Severe emphysema. 08/19/24: CT Scan of the Chest without Contrast: Clinical Indication: COPD COMPARISON: 02/20/2024 Findings: There is no evidence of any significant mediastinal, hilar or axillary lymphadenopathy. There are extensive atherosclerotic calcifications of the coronary arteries and aorta. There is no evidence of pleural or pericardial effusion. Stable emphysema and biapical scarring with calcifications. Stable additional irregular nodule in the left upper lobe (axial image 29) disease. Stable irregular nodular scarring in the superior segment left lower lobe. Stable irregular consolidation in the right upper lobe in the perihilar region. Stable chronic scarring or atelectasis at the lingula. Probable irregular airspace opacity focally in the right lower lobe (axial image 64), likely focal infectious/inflammatory process or atelectatic change. Images through the upper abdomen reveal nonobstructing right renal stone. Stable mild compression deformities in the spine. Impression: Multiple areas of scarring and irregular consolidation the lungs are largely stable from prior exam, most prominent in the right perihilar region the upper lobe. Small new peripheral airspace opacity in the right lower lobe, most likely infectious/inflammatory in nature. Stable emphysema. infiltrates stable repeat CT scan in 12 months. 08/29/2023: Alpha 1 anti trypsin genotype MM, normal. 09/08/2023: CT Scan of the Chest without Contrast: Clinical Indication: COPD COMPARISON: 03/09/2023 Findings: There is no evidence of any significant mediastinal, hilar or axillary lymphadenopathy. The mediastinal soft tissues appear normal. There is no evidence of pleural or pericardial effusion. There is biapical scarring. Stable nodule in the superior segment left lower lobe. There is decreased size of nodule/consolidation at the right upper lobe, which currently measures up to approximately 3 cm in diameter. There is chronic scarring at the lingula, unchanged. There is moderate to severe emphysema. Stable additional left lower lobe nodule (axial image 51). Images through the upper abdomen reveal bilateral nonobstructing renal stones. Impression: Irregular somewhat nodular/masslike consolidation right upper lobe, highly decreased in extent from prior exam. This presumably represents slowly resolving pneumonia given interval decrease in size. Stable chronic scarring in the lingula with additional left pulmonary nodules, which also unchanged, as detailed above. Moderate to advanced emphysema. Bilateral nephrolithiasis. 05/23/2023: Overnight oximetry on 3 L nasal cannula.? Duration of recording is 7 hours and 24 minutes.? Baseline saturation 96%.? High saturation 99%.? Low saturation 89%.? Time with saturation less than or equal to 88% was 0 minutes.? Oxygen desaturation index is 3.91.? I will continue 3 L nasal cannula at night. 04/19/2023: Overnight oximetry on 2 L nasal cannula:? Recording duration 8 hours and 35 minutes.? Baseline saturation 95%.? High saturation 99%.? Low saturation 83%.? Time with saturation less than or equal to 88% was 5 minutes and 52 seconds (1.4% of monitored time).? Oxygen desaturation index 6.1. I will increase the oxygen to 3 L and repeat an overnight oximetry. ? ?03/03/2023:? Overnight oximetry on room air.? Duration 1 hour and 57 minutes.? Basal saturation 92.2%.? High saturation 99%.? Low saturation 81%.? Time with saturation less than or equal to 88% was 6 minutes and 15 seconds (5% of the monitored time).? Oxygen desaturation events is 34 events per hour.? I will order 2 L nasal cannula repeat overnight oximetry on 2 L nasal cannula. 03/09/23 EXAMINATION: CT diagnostic chest wo con ?INDICATION: Pneumonia, unspecified organism, left upper lobe. ?09/29/2022 CTA examination report of unchanged 8 mm pulmonary nodules of left lower lobe, likely sequelae of old granulomatous disease, but would consider 6-12 month follow ?COMPARISON: October 24, 2022 portable AP chest ?09/29/2022 CT pulmonary scan ?FINDINGS: Chronic bilateral apical fibrocalcific scarring. ?Severe emphysematous changes are again noted. ?There is contraction of the prominent consolidation of the left upper lobe and lingula since 09/29/2022 consistent with postinfectious scarring and left upper lobe atelectasis. ?Stable approximately 6 mm superior segment left lower lobe pulmonary nodule with attenuation up to 148 Hounsfield units, likely calcified pulmonary granuloma. Stable approximately 8 mm lateral left lower lobe pulmonary nodule attenuation up to 317 Hounsfield units, also likely a calcified pulmonary granuloma. There is focal lateral left lower lobe basilar discoid atelectasis or scarring. ?There is new prominent consolidation in the left upper lobe in the upper perihilar area since 09/29/2022, likely due to pneumonia. A smaller mass or focal consolidation is noted in the anterolateral right lower lobe measuring up to approximately 2.2 cm maximal dimension. Discoid atelectasis or scarring is noted in the right lower lobe. ?Normal heart size. Coronary artery calcification. No pericardial effusion. ?There is extensive thoracic aortic as well as great vessel calcification. No thoracic aortic aneurysm. ?No hilar or mediastinal mass lesion or lymphadenopathy is noted. ?Normal morphology of the adrenal glands. ?Hepatic and splenic calcified granulomas consistent with old granulomatous disease ?Small sliding hiatal hernia. ?Mild to moderate anterior wedge compression fracture of T11. ?No suspicious osteolytic or osteoblastic lesions are noted. ?IMPRESSION:? 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 home O2 assessment requires 2 L nasal cannula with rest and 2 L with ambulation.?10/06/22 overnight oximetry on 2 L nasal cannula with average saturation 97%, low saturation 93%, time with saturation less than or equal to 88% was 0 minutes. ?09/29/2022 EXAMINATION: CTA chest PE protocol ???INDICATION: Shortness of breath ???COMPARISON: 09/24/2022 and 12/14/2021 ???FINDINGS: ???Excellent contrast opacification of the pulmonary arteries. There is mild streak artifact from dense contrast in the superior vena cava and right atrium. No significant motion artifact yielding diagnostic left study which demonstrates no pulmonary embolism. Mild enlargement of the central pulmonary arteries consistent with pulmonary arterial hypertension. Severe emphysema with moderate chronic partially calcified biapical pleural-parenchymal scarring. ??No interval change in consolidation with volume loss and air bronchograms in the anterior segment of the left upper lobe and the lingula. Also unchanged is additional reticular and minimal patchy airspace opacities in the left lower lobe along the left hemidiaphragm. ???Again seen are a pulmonary nodules in the superior and posterior basilar segments of the left lower lobe unchanged since 12/14/21 and which along with a couple centrally calcified nodules in the left upper lobe and lingula which are now obscured by the consolidation likely sequela of old granulomatous disease. Small posterior layering left pleural effusion. Small amount of mucus in the trachea and right mainstem bronchus. There is complete opacification of the main right lower lobar and more peripheral bronchi consistent with mucous plugging as it is new since 08/30/2022 at which time there were no endobronchial lesions. ??Heart size is normal. Atherosclerotic coronary artery calcifications. No pericardial effusion. Thoracic aorta is normal in caliber. No pathologically enlarged thoracic lymphadenopathy. Is reflux of contrast into the inferior vena cava and hepatic veins consistent with tricuspid regurgitation. Couple splenic calcific lesions consistent with old granulomatous disease. Multiple tiny punctate calcification is at the left kidney consistent with renal stones and/or renal medullary nephrocalcinosis. Mild thoracic and severe upper lumbar spondylosis. ???IMPRESSION: ???1. No pulmonary embolism. ???2. Unchanged consolidation in the left upper lobe and lingula and minimal lung disease at the basilar left lower lobe consistent with ongoing multifocal pneumonia. ???3. Unchanged mucous plugging involving the bronchi throughout the right lower lobe. ???4. Severe emphysema. ???5. Small left pleural effusion. ???6. Unchanged 8 mm pulmonary nodules in the left lower lobe likely sequela of old granulomatous disease but would consider 6-12 month follow-up. ?09/24/2022 EXAMINATION: CTA chest PE protocol ???INDICATION: Shortness of breath. Right chest pressure. ???COMPARISON: Chest CT 09/08/2022, 12/14/21, PET/CT 03/01/17 ???FINDINGS: There is mild scarring at the lung apices. There is severe emphysema. There is mild atelectasis bilaterally. There are airspace opacities in left upper lobe with volume loss and air bronchograms. There are mild airspace opacities in anteromedial basal segment left lower lobe. These finds are consistent with pneumonia. There is an 8 mm nodule in superior segment left lower lobe, stable from 03/01/17, likely benign. There is an 8 mm nodule in left lower lobe, stable from 12/14/2021, probably benign. There is mucous plugging in the right-sided bronchi. There is a small left pleural effusion. The heart size is normal. There are coronary artery calcifications. No pericardial effusion. The central pulmonary arteries are enlarged, consistent with pulmonary arterial hypertension. There is no pulmonary embolus. Calcifications in the spleen are consistent with old granulomatous disease. There is mild thoracic spondylosis and severe lumbar spondylosis. ???IMPRESSION: ???1. No pulmonary embolus. ???2. Left-sided pneumonia predominantly involving left upper lobe. ???3. Right-sided mucous plugging. ???4. Severe emphysema. ???5. Small left pleural effusion. ???6. Stable 8 mm pulmonary nodule, probably benign. Noncontrast low-dose chest CT is recommended in 6 months. ? ??09/09/2022:? Home O2 assessment.? Rest room air saturation 87%.? 1 L nasal cannula rest saturation 93%.? Exercise 1 L nasal cannula saturation 90%.??Patient requires 1 L at rest and with ambulation. ??09/08/2022 CT Scan of the Chest without Contrast: ???Clinical Indication: Pneumonia ???COMPARISON: 08/30/2022 ???Findings: ???There is no evidence of any significant mediastinal, hilar or axillary lymphadenopathy. Coronary artery calcium case is are present. No aortic aneurysm. ???There is no evidence of pleural or pericardial effusion. ???Extensive consolidation of the lingula is again present. There has been significant improvement in the airspace disease in the posterior superior left upper lobe as compared to prior exam, but the extensive lingular consolidation is largely unchanged. Questionable focal areas of cavitation or necrosis within the consolidation. ???Small left pleural effusion is present. There is interstitial prominence and mild airspace disease dependently adjacent to the effusion and left lower lobe. ???Stable focal pulmonary nodules in the superior segment left lower lobe (axial image 31), and more inferiorly in the left lower lobe (axial image 58). Previously noted left upper lobe nodule may be obscured by consolidation. ???Right lung is clear. Moderate to severe emphysema present. ???Images through the upper abdomen reveal partially imaged nonobstructing right renal stone. Suspected medullary nephrocalcinosis bilaterally. ???Impression: Extensive lingular pneumonia is essentially unchanged from prior exam. Questionable areas of cavitation or necrosis within the consolidation. ???Consolidation seen previously in the posterior superior left upper lobe is essentially resolved. ???Small left pleural effusion. Dependent interstitial thickening and haziness adjacent to the effusion is present, which could reflect atelectatic change versus additional pneumonia. ???Stable left lower lobe pulmonary nodules, as detailed above. Moderate to severe emphysema. ?08/30/2022 ???Clinical Indication: Chest pain, shortness of breath ???CT Scan of the Chest with Contrast: ???COMPARISON: 12/14/2021 ???Findings: There is no evidence of any significant mediastinal, hilar or axillary lymphadenopathy. There is no filling defect in the pulmonary arterial tree to suggest pulmonary embolus. There is no evidence of aortic dissection or aneurysm. ???There is no evidence of pleural or pericardial effusion. ???There is extensive left upper lobe and lingular consolidation. Underlying diffuse moderate to severe emphysema present. Stable nodules in the left upper and lower lobes (axial images 53, 61). ???Images through the upper abdomen reveal no abnormalities. ???Impression:No evidence of pulmonary embolus, aortic dissection, or aortic aneurysm. ???Extensive left upper lobe pneumonia. Follow-up to radiographic resolution advised. ???Underlying moderate to severe diffuse emphysema. ?? 12/15/2021 EXAMINATION: CT diagnostic chest wo con ?INDICATION: Lung nodules ?COMPARISON: PET/CT, 03/01/2017 ?FINDINGS: There is severe emphysema. There are multiple calcified nodules of the lungs, consistent with old granulomatous disease. There is a stable 7 mm noncalcified nodule in the superior segment of the left lower lobe on image 37. There is a 7 mm nodule of the left lower lobe on image 64 which previously measured 3 mm. Scarring is noted in the lung apices. There is no pleural effusion or pneumothorax. The lungs are free of acute opacities. No pathologically enlarged thoracic lymph nodes are identified. The heart size is normal. Punctate calcifications in an otherwise normal spleen likely represent healed granulomatous disease. There is mild thoracic spondylosis. There is severe upper lumbar spondylosis. ?IMPRESSION: ?1. 7 mm nodule of the left lower lobe with increase in size since the prior examination, granulomatous disease versus malignancy. Recommend follow-up CT in 3-6 months. Multiple additional stable pulmonary nodules with and without calcification likely reflect old granulomatous disease. ?2. Severe emphysema. ??11/02/2021:? PFTs ??The test was performed and results interpreted in accordance with the 2019 and 2005 ATS/ERS Task Force guidelines respectively using the Global Lung Function Initiative-2012 reference equations. Patient demonstrated good effort and cooperation. Reproducibility criteria were met. The quality of the pre bronchodilator spirometry maneuver was Grade A and post bronchodilator spirometry maneuver was Grade B. ??Findings: ??Spirometry:? There is decreased maximal expiratory airflow at all lung volumes with concave expiratory flow tracing.? The contour the inspiratory flow tracing is normal.? The pre bronchodilator FVC is 1.68 L, 68% predicted.? The pre bronchodilator FEV1 is 0.74 L, 38% predicted.? The pre bronchodilator FEV1:? FVC ratio is 44%.? The post bronchodilator FVC is 2.22 L, representing a 32% increase.? The post bronchodilator FEV1 is 0.68 L, representing a 7% decrease.? The post bronchodilator FEV1:? FVC ratio is 31%. ??Plethysmography:? The total lung capacity is 8.60 L, representing 187% predicted.? The functional residual capacity is 7.53 L, 287% predicted.? The residual volume is 6.45 L, 307% predicted. ??Diffusing Capacity:? The diffusing capacity unadjusted for hemoglobin and carboxyhemoglobin is 4.4, 23% predicted.? Diffusing capacity adjusted for alveolar volume is 1.34, 31% predicted. ??My impression:?There is a severe obstructive abnormality?with significant improvement after inhaling a single dose of albuterol. The increase in residual volume is consistent with air trapping from an obstructive abnormality.? Hyperinflation is present as demonstrated by the increase in functional residual capacity and total lung capacity and is consistent with an obstructive abnormality. The diffusing capacity unadjusted for hemoglobin and carboxyhemoglobin is severely decreased and remains severely decreased when adjusted for alveolar volume. ??There are no prior studies for comparison Review of Systems Constitutional: Constitutional: Reports no additional constitutional complaints Eyes: Eyes: Reports no additional eye complaints ENT: Reports system reviewed and no additional complaints, except as documented Cardiovascular: Cardiovascular: Reports no additional cardiovascular complaints Respiratory: Respiratory: Reports no additional respiratory complaints Gastrointestinal: Gastrointestinal: Reports no additional gastrointestinal complaints Musculoskeletal: Musculoskeletal: Reports no additional musculoskeletal complaints Neurologic: Reports system reviewed and no additional complaints, except as documented Psychiatric: Psychiatric: Reports no additional psychiatric complaints Endocrine: Endocrine: Reports no additional endocrine complaints Hematologic/Lymphatic: Hematologic/Lymphatic: Reports no additional hematologic/lymphatic complaints Allergic/Immunologic: Allergic/Immunologic: Reports no additional allergic/immunologic complaints Exam Narrative: patient is on BiPAP. Const: General: cooperative, healthy appearing and comfortable Orientation/consciousness: oriented to person, oriented to place and oriented to time HENMT: Head: normal to inspection Ears: hearing grossly normal bilaterally Eyes: General: appearance normal, both eyes and all related structures Neck: Neck: normal visual inspection Chest: Chest palpation & inspection: normal inspection of the chest Resp: Effort & Inspection: normal respiratory effort and able to speak in complete sentences Auscultation: no crackles, no rales, no rhonchi, no wheezes and diminished lung sounds Other: No wheezes today Cardio: Jugular venous distension: no JVD GI: Inspection: normal to inspection Skin: General skin exam: normal color Neuro: General: oriented to person, oriented to place and oriented to time Extrem: General: normal to inspection and no edema Psych: Appearance: grossly normal Objective Data Vital Signs Vital Signs: Vital Signs - 24 hr 10/18/24 11:20 10/18/24 12:00 10/18/24 12:00 Temperature 36.4 C L Pulse Rate 90 96 98 Respiratory Rate 20 22 H Blood Pressure 139/69 Pulse Oximetry 98 98 Oxygen Delivery Nasal Cannula Oxygen Flow Rate 2 Fraction of Inspired Oxygen 10/18/24 12:37 10/18/24 12:44 10/18/24 12:45 Temperature Pulse Rate 96 96 Respiratory Rate 22 H 22 H Blood Pressure Pulse Oximetry 96 Oxygen Delivery BiPAP BiPAP Oxygen Flow Rate Fraction of Inspired Oxygen 10/18/24 13:43 10/18/24 14:00 10/18/24 14:40 Temperature Pulse Rate 99 Respiratory Rate Blood Pressure Pulse Oximetry 98 Oxygen Delivery BiPAP Nasal Cannula Oxygen Flow Rate 2 Fraction of Inspired Oxygen 10/18/24 15:37 10/18/24 15:41 10/18/24 15:55 Temperature Pulse Rate 96 93 94 Respiratory Rate 18 20 Blood Pressure Pulse Oximetry 100 Oxygen Delivery Oxygen Flow Rate Fraction of Inspired Oxygen 10/18/24 16:00 10/18/24 16:00 10/18/24 16:00 Temperature 36.4 C L Pulse Rate 98 98 98 Respiratory Rate 18 18 Blood Pressure 147/70 H Pulse Oximetry 98 98 Oxygen Delivery Nasal Cannula Oxygen Flow Rate 2 Fraction of Inspired Oxygen 10/18/24 18:00 10/18/24 19:58 10/18/24 20:00 Temperature Pulse Rate 96 96 90 Respiratory Rate 18 Blood Pressure Pulse Oximetry 98 Oxygen Delivery Nasal Cannula Oxygen Flow Rate 2 Fraction of Inspired Oxygen 10/18/24 20:27 10/18/24 20:38 10/18/24 21:48 Temperature 36.6 C Pulse Rate 95 94 89 Respiratory Rate 27 H 18 Blood Pressure 145/88 H Pulse Oximetry 95 Oxygen Delivery Oxygen Flow Rate Fraction of Inspired Oxygen 10/18/24 21:52 10/18/24 22:00 10/18/24 22:00 Temperature Pulse Rate 94 90 Respiratory Rate 20 Blood Pressure Pulse Oximetry 97 Oxygen Delivery Nasal Cannula Oxygen Flow Rate 2 Fraction of Inspired Oxygen 10/18/24 22:30 10/19/24 00:00 10/19/24 00:21 Temperature 37.0 C Pulse Rate 96 89 94 Respiratory Rate 21 H 20 Blood Pressure 149/76 H Pulse Oximetry 97 99 Oxygen Delivery BiPAP Oxygen Flow Rate Fraction of Inspired Oxygen 10/19/24 00:30 10/19/24 00:45 10/19/24 00:45 Temperature Pulse Rate 94 95 95 Respiratory Rate 20 19 19 Blood Pressure Pulse Oximetry 99 97 Oxygen Delivery Nasal Cannula BiPAP Oxygen Flow Rate 2 Fraction of Inspired Oxygen 10/19/24 00:53 10/19/24 02:00 10/19/24 04:00 Temperature Pulse Rate 91 95 95 Respiratory Rate 18 18 Blood Pressure Pulse Oximetry 97 Oxygen Delivery BiPAP Oxygen Flow Rate Fraction of Inspired Oxygen 25 10/19/24 04:00 10/19/24 04:04 10/19/24 04:05 Temperature Pulse Rate 94 94 94 Respiratory Rate 20 20 Blood Pressure Pulse Oximetry 97 Oxygen Delivery BiPAP Oxygen Flow Rate Fraction of Inspired Oxygen 10/19/24 04:15 10/19/24 04:18 10/19/24 06:00 Temperature 36.6 C Pulse Rate 92 97 96 Respiratory Rate 20 24 H Blood Pressure 148/75 H Pulse Oximetry 95 Oxygen Delivery Oxygen Flow Rate Fraction of Inspired Oxygen 10/19/24 07:47 10/19/24 08:00 10/19/24 08:28 Temperature 36.8 C Pulse Rate 103 H 104 H Respiratory Rate 20 Blood Pressure 143/64 H Pulse Oximetry 97 97 Oxygen Delivery Nasal Cannula Oxygen Flow Rate 2 Fraction of Inspired Oxygen 10/19/24 08:55 10/19/24 09:01 10/19/24 09:01 Temperature Pulse Rate 97 98 Respiratory Rate 21 H 18 Blood Pressure Pulse Oximetry 97 99 Oxygen Delivery BiPAP Nasal Cannula Oxygen Flow Rate 2 Fraction of Inspired Oxygen 10/19/24 09:25 10/19/24 10:26 Temperature Pulse Rate 94 Respiratory Rate 22 H Blood Pressure Pulse Oximetry Oxygen Delivery Nasal Cannula Oxygen Flow Rate 2 Fraction of Inspired Oxygen Intake/Output Intake/Output: Intake & Output 10/16/24 10/17/24 10/18/24 10/19/24 23:59 23:59 23:59 23:59 Intake Total 1030 1340 1180 360 Output Total 700 800 200 100 Balance 330 540 980 260 Meds/Results Medications: Active Medications Generic Name Dose Route Start Last Admin Trade Name Freq PRN Reason Stop Dose Admin Acetaminophen 650 mg 10/12/24 20:30 10/19/24 08:29 Acetaminophen 325 Mg Tablet PO 650 mg Q4H PRN Administration Mild Pain (1-3) or Fever Alprazolam 0.25 mg 10/17/24 08:50 Alprazolam (*Crx) 0.25 Mg Tablet PO Q6H PRN Anxiety Dextrose 12.5 gm 10/12/24 20:30 Dextrose 50% 25 Gm/50 Ml Syringe IV PUSH PRN PRN Hypoglycemia Protocol Diltiazem HCl 120 mg 10/13/24 09:00 10/19/24 08:28 Diltiazem Hcl Cd 120 Mg Cap.24hr PO 120 mg DAILY ANIYA Administration Flecainide Acetate 100 mg 10/13/24 17:40 10/19/24 08:28 Flecainide Acetate 100 Mg Tablet PO 100 mg Q12HR ANIYA Administration Fluticasone/Umeclidinium/Vilanterol 1 puff 10/19/24 10:00 Fluticasone/Umeclidin/Vilanter 100-62.5-25 Mcg Ellipta INHALATION DAILYRT ANIYA Glucose 15 gm 10/12/24 20:30 Glucose Oral Gel 15 Gm Of Glucse In 37.5 Gm Tube PO PRN PRN Hypoglycemia Protocol Guaifenesin 1,200 mg 10/14/24 21:00 10/19/24 08:29 Guaifenesin 12 Hr 600 Mg Tabcr PO 1,200 mg Q12HR ANIYA Administration Hydralazine HCl 10 mg 10/17/24 08:50 Hydralazine Hcl 20 Mg/Ml Vial IV PUSH Q6H PRN Blood Pressure - High Dextrose 1,000 mls @ 100 mls/hr 10/12/24 20:30 Dextrose 5% 1,000 Ml IVPB PRN PRN Hypoglycemia Protocol Ipratropium [place] 0.5 mg 10/19/24 09:54 Ipratropium Br 0.02% Inh Soln 0.5 Mg/2.5 Ml Vial INHALATION Q4HRT PRN Shortness Of Breath Levalbuterol HCl 0.63 mg 10/19/24 09:54 Levalbuterol Neb 1.25 Mg/3 Ml INHALATION Q4HRT PRN Wheezing Magnesium Oxide 400 mg 10/15/24 09:00 10/19/24 08:29 Magnesium Oxide 400 Mg Tablet PO 400 mg DAILY ANIYA Administration Mirabegron 25 mg 10/13/24 09:00 10/19/24 08:29 Mirabegron 25 Mg Er Tablet PO 25 mg DAILY ANIYA Administration Polyethylene Glycol 17 gm 10/16/24 18:15 10/19/24 08:30 Polyethylene Glycol 3350 17 Gm Powd.Pack PO Not Given QAM [facility] Pravastatin Sodium 20 mg 10/12/24 23:40 10/18/24 20:27 Pravastatin Sodium 20 Mg Tablet PO 20 mg HS [facility] Administration Rivaroxaban 15 mg 10/14/24 21:00 10/18/24 20:27 Rivaroxaban 15 Mg Tablet PO 15 mg 2100 [facility] Administration Senna/Docusate Sodium 1 tab 10/16/24 18:25 10/19/24 08:29 Senna/Docusate Sodium Tablet PO Not Given BID [facility] Radiology Results: ITS Impressions Chest CT 10/12/24 19:30 IMPRESSION: Scattered small, likely infectious/inflammatory foci, overlying a background of severe emphysematous change and largely stable areas of parenchymal scarring. Mild esophagitis/gastritis. Hepatic steatosis. Chest X-Ray 10/16/24 08:47 Impression: 1: No acute cardiopulmonary disease. No significant interval change. Venous Doppler Study 10/16/24 11:25 IMPRESSION: 1. No deep venous thrombosis. Labs Labs: Laboratory Results - last 24 hr 10/15/24 10/19/24 04:46 10:25 WBC 14.3 H RBC 4.25 Hgb 13.1 Hct 41.5 MCV 97.6 MCH 30.8 MCHC 31.6 L RDW 13.2 Plt Count 223 MPV 10.7 H Sodium 140 Potassium 3.6 Chloride 97 L Carbon Dioxide 38 H Anion Gap 5 BUN 18 H Creatinine 0.73 Estim Creat Clear Calc 45 Estimated GFR > 60 Glucose 132 H Calcium 9.1 Mycoplasma pneumon IgM 49
[2024-10-19] MEDS: SENNA/DOCUSATE SODIUM TABLET 1 TAB PO (16:36)
--- NOTE | 2024-10-19 17:32 | PCRCNOTE ---
Window of time for administration has passed. See next scheduled administration.
[2024-10-19] MEDS: RIVAROXABAN 15 MG TABLET PO (20:37)
[2024-10-19] MEDS: PRAVASTATIN SODIUM 20 MG TABLET PO (20:37)
[2024-10-19] MEDS: FORMOTEROL FUMARATE INHALATION (20:49)
[2024-10-19] MEDS: GLYCOPYRROLATE INHALATION (20:49)
[2024-10-19] MEDS: [UNRECOGNIZED DRUG - OTHER] INHALATION (20:49)
[2024-10-19] MEDS: BUDESONIDE INHALATION (20:49)
[2024-10-19] MEDS: SIMETHICONE 125 MG CHEW TAB PO (22:05)
[2024-10-20] VITALS (26 sets, daily range): BP systolic 132–157; BP diastolic 62–78; PULSE 86–102; RESP 18–24; TEMP 36.4–36.9; O2SAT 96–99
[2024-10-20] MEDS: LEVALBUTEROL NEB 1.25 MG/3 ML 0.63 MG INHALATION ×2 (03:58→10:10)
[2024-10-20] MEDS: IPRATROPIUM BR 0.02% INH SOLN 0.5 MG/2.5 ML VIAL INHALATION ×3 (03:58→15:49)
[2024-10-20] MEDS: SIMETHICONE 125 MG CHEW TAB PO ×2 (04:18→15:40)
--- NOTE | 2024-10-20 04:50 | PM.EVENT ---
Event Note Event Note Event Note: Nursing staff called because the patient had been up multiple times to urinate. They bladder scan the patient in demonstrated greater than 900ml. The patient was able to get up to the bedside commode in urinate approximately 300 mL. Repeat bladder scan still demonstrated more than 900 retained in the bladder. An order was given for placement of Lee catheter and will hold the patient's Mybetriq.
--- NOTE | 2024-10-20 07:54 | PM.IMPN ---
Progress Note: A&P Assessment and Plan (1) Lactic acidosis: Code(s): E87.20 - Acidosis, unspecified Status: Acute (2) Sepsis: Code(s): A41.9 - Sepsis, unspecified organism Status: Acute (3) Acute on chronic respiratory failure with hypoxia and hypercapnia: Code(s): J96.21 - Acute and chronic respiratory failure with hypoxia; J96.22 - Acute and chronic respiratory failure with hypercapnia Status: Acute (4) Respiratory syncytial virus (RSV): Qualifiers: RSV infection type: unspecified Qualified Code(s): B33.8 - Other specified viral diseases Code(s): B33.8 - Other specified viral diseases Status: Acute Plan This is a 74-year-old female with a past medical history prior tobacco abuse, COPD and chronic respiratory failure on 3 L nasal cannula continuously, atrial fibrillation on Xarelto, hypertension, hypercholesterolemia, polycythemia secondary to hypoxia, pulmonary nodule. She is accompanied by her who she lives with and her daughter. The patient quit smoking 2 years prior and has not been hospitalized since then either. She has been in her normal state of health and does not frequently use her inhalers or nebulizers. In the past 2 days she has used them multiple times due to shortness of breath and a cough productive of green/whitfield sputum. She denies chest pain. On 10/11/2024 the patient presents to [facility] due to severe difficulty breathing. ER nurse practitioner note patient was tripoding on arrival. Tachypnea with respiratory rate 24-27. Vitals otherwise stable. WBC 14.4, hemoglobin 15.4, . Acute on chronic respiratory failure with hypoxia and hypercapnia Patient has chronic respiratory failure Upon arrival in the ED, patient has worsening O2 desaturation, ABG demonstrated hypercapnic, hypoxemic respiratory failure patient has been on BiPAP since arrival Repeat ABG showed improvement symptoms retention Continue current managements off BIPAP 10/20 COPD exacerbation RSV infection. Suspected bacterial pneumonia on vancomycin ceftriaxone and azithromycin, Solu-Medrol 125 mg IV push x1, 2 L normal saline bolus, Patient is on DuoNeb scheduled, albuterol nebulizer. Received Methylprednisolone completed treatment on October 15 Finish antibiotic treatment 10/16 Appreciate pulmonary consultation, follow recommendations Acute renal failure due to Dehydration and sepsis BUN 25, serum creatinine 1.28, baseline creatinine 0.7 Received fluid resuscitation Kidney function improving Discontinue normal saline 75 mL/hour Severe sepsis without shock lactic acidosis with end-organ damage, acute hypoxic respiratory failure and acute kidney injury Resolved Paroxysmal atrial fibrillation on Xarelto, Cardizem 120 mg daily p.o. And flecainide 100 mg b.i.d. p.o. Follow-up echocardiogram 1. Complete two-dimensional, color flow and Doppler transthoracic echocardiogram is performed. 2. There is normal biventricular size and systolic function. 3. There is no significant valvular disease. 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 Patient wishes to be full code. Home medications will be restarted as appropriate if indicated. Subjective Date/time seen: 10/20/24 07:54 Interval history: I saw examined patient today. Patient feels better today, appetite continue to improve. . 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 Patient has no significant dyspnea at rest, still has cough with scant phlegm. Denies chest pain abdomen pain nausea vomiting diarrhea. Patient afebrile, blood pressure stable. Exam Narrative: GENERAL: Ill-appearing in no acute distress. Moderate malnutrition - EYES: EOMI. Anicteric. - HENT: Moist mucous membranes. - LUNGS: Distant breath sound bilateral, coarse breath sound bilaterally, no wheezing - CARDIOVASCULAR: Regular rate and rhythm. No murmur. No JVD. - ABDOMEN: Soft, non-tender and non-distended. No palpable masses. - EXTREMITIES: No edema. Peripheral pulses 2+. Non-tender. - NEUROLOGIC: No focal neurological deficits. CN II-XII grossly intact. General weakness - PSYCHIATRIC: Awake, Alert and oriented x 3. Appropriate mood and affect. - SKIN: No rashes or lesions. Warm. - LYMPH: No cervical lymphadenopathy. Objective Data Vital Signs Vital Signs: Vital Signs - 24 hr 10/19/24 08:00 10/19/24 08:00 10/19/24 08:28 Temperature Pulse Rate 102 H 104 H Respiratory Rate Blood Pressure Pulse Oximetry 97 Oxygen Delivery Nasal Cannula Oxygen Flow Rate 2 10/19/24 08:55 10/19/24 09:01 10/19/24 09:01 Temperature Pulse Rate 97 98 Respiratory Rate 21 H 18 Blood Pressure Pulse Oximetry 97 99 Oxygen Delivery BiPAP Nasal Cannula Oxygen Flow Rate 2 10/19/24 09:25 10/19/24 10:00 10/19/24 10:26 Temperature Pulse Rate 94 100 Respiratory Rate 22 H Blood Pressure Pulse Oximetry Oxygen Delivery Nasal Cannula Oxygen Flow Rate 2 10/19/24 11:43 10/19/24 12:00 10/19/24 12:00 Temperature 97.7 F Pulse Rate 94 94 Respiratory Rate 28 H Blood Pressure 139/58 L Pulse Oximetry 99 94 Oxygen Delivery Nasal Cannula Oxygen Flow Rate 2 10/19/24 12:03 10/19/24 14:00 10/19/24 15:50 Temperature 97.0 F L Pulse Rate 92 86 Respiratory Rate 21 H Blood Pressure 142/81 H Pulse Oximetry 98 98 Oxygen Delivery Nasal Cannula Oxygen Flow Rate 2 10/19/24 16:00 10/19/24 16:00 10/19/24 17:39 Temperature Pulse Rate 90 97 Respiratory Rate 20 Blood Pressure Pulse Oximetry 97 Oxygen Delivery Nasal Cannula Oxygen Flow Rate 2 10/19/24 18:00 10/19/24 20:00 10/19/24 20:00 Temperature 98.0 F Pulse Rate 97 101 H Respiratory Rate 19 Blood Pressure 148/65 H Pulse Oximetry 97 97 Oxygen Delivery Nasal Cannula Oxygen Flow Rate 2 10/19/24 20:00 10/19/24 20:37 10/19/24 21:04 Temperature Pulse Rate 94 99 92 Respiratory Rate 20 Blood Pressure Pulse Oximetry Oxygen Delivery Oxygen Flow Rate 10/19/24 22:00 10/20/24 00:00 10/20/24 00:00 Temperature 97.8 F Pulse Rate 97 94 94 Respiratory Rate 18 Blood Pressure 135/78 Pulse Oximetry 99 Oxygen Delivery Oxygen Flow Rate 10/20/24 00:00 10/20/24 02:00 10/20/24 03:58 Temperature Pulse Rate 93 91 Respiratory Rate 22 H Blood Pressure Pulse Oximetry 99 Oxygen Delivery Nasal Cannula Oxygen Flow Rate 2 10/20/24 04:00 10/20/24 04:00 10/20/24 04:00 Temperature 97.8 F Pulse Rate 91 90 Respiratory Rate 19 Blood Pressure 150/75 H Pulse Oximetry 99 99 Oxygen Delivery Nasal Cannula Oxygen Flow Rate 2 10/20/24 04:09 10/20/24 06:00 Temperature Pulse Rate 98 92 Respiratory Rate 22 H Blood Pressure Pulse Oximetry Oxygen Delivery Oxygen Flow Rate Intake/Output Intake/Output: Intake & Output 10/17/24 10/18/24 10/19/24 10/20/24 23:59 23:59 23:59 23:59 Intake Total 1340 1180 360 300 Output Total 800 774 934 6189 Balance 540 290 -155 -850 Meds/Results Medications: Active Medications Generic Name Dose Route Start Last Admin Trade Name Freq PRN Reason Stop Dose Admin Acetaminophen 650 mg 10/12/24 20:30 10/19/24 08:29 Acetaminophen 325 Mg Tablet PO 650 mg Q4H PRN Administration Mild Pain (1-3) or Fever Al Hydrox/Mg Hydrox/Simethicone 30 ml 10/19/24 15:25 Mag Hydrox/Al Hydrox/Simeth 30 Ml Udc PO Q6H PRN Indigestion Alprazolam 0.25 mg 10/17/24 08:50 Alprazolam (*Crx) 0.25 Mg Tablet PO Q6H PRN Anxiety Dextrose 12.5 gm 10/12/24 20:30 Dextrose 50% 25 Gm/50 Ml Syringe IV PUSH PRN PRN Hypoglycemia Protocol Diltiazem HCl 120 mg 10/13/24 09:00 10/19/24 08:28 Diltiazem Hcl Cd 120 Mg Cap.24hr PO 120 mg DAILY ANIYA Administration Flecainide Acetate 100 mg 10/13/24 17:40 10/19/24 20:37 Flecainide Acetate 100 Mg Tablet PO 100 mg Q12HR ANIYA Administration Glucose 15 gm 10/12/24 20:30 Glucose Oral Gel 15 Gm Of Glucse In 37.5 Gm Tube PO PRN PRN Hypoglycemia Protocol Guaifenesin 1,200 mg 10/14/24 21:00 10/19/24 20:37 Guaifenesin 12 Hr 600 Mg Tabcr PO 1,200 mg Q12HR ANIYA Administration Hydralazine HCl 10 mg 10/17/24 08:50 Hydralazine Hcl 20 Mg/Ml Vial IV PUSH Q6H PRN Blood Pressure - High Dextrose 1,000 mls @ 100 mls/hr 10/12/24 20:30 Dextrose 5% 1,000 Ml IVPB PRN PRN Hypoglycemia Protocol Ipratropium [place] 0.5 mg 10/19/24 09:54 10/20/24 03:58 Ipratropium Br 0.02% Inh Soln 0.5 Mg/2.5 Ml Vial INHALATION 0.5 mg Q4HRT PRN Administration Shortness Of Breath Levalbuterol HCl 0.63 mg 10/19/24 09:54 10/20/24 03:58 Levalbuterol Neb 1.25 Mg/3 Ml INHALATION 0.63 mg Q4HRT PRN Administration Wheezing Magnesium Oxide 400 mg 10/15/24 09:00 10/19/24 08:29 Magnesium Oxide 400 Mg Tablet PO 400 mg DAILY ANIYA Administration Mirabegron 25 mg 10/13/24 09:00 10/19/24 08:29 Mirabegron 25 Mg Er Tablet PO 25 mg DAILY ANIYA Administration * Home Med * ( 2 each 10/19/24 12:35 10/19/24 20:49 Lauratri) Budesonide/ INHALATION 11/18/24 12:34 2 each Glycopyrrolate/ Q12HRT ANIYA Administration Formoterol Fumarate 160 Mcg-9 Mcg-4.8 Mcg Pantoprazole Sodium 40 mg 10/20/24 09:00 Pantoprazole 40 Mg Tablet PO QAM ANIYA Polyethylene Glycol 17 gm 10/16/24 18:15 10/19/24 08:30 Polyethylene Glycol 3350 17 Gm Powd.Pack PO Not Given QAM ANIYA Pravastatin Sodium 20 mg 10/12/24 23:40 10/19/24 20:37 Pravastatin Sodium 20 Mg Tablet PO 20 mg HS ANIYA Administration Rivaroxaban 15 mg 10/14/24 21:00 10/19/24 20:37 Rivaroxaban 15 Mg Tablet PO 15 mg 2100 ANIYA Administration Senna/Docusate Sodium 1 tab 10/16/24 18:25 10/19/24 16:36 Senna/Docusate Sodium Tablet PO 1 tab BID ANIYA Administration Simethicone 125 mg 10/19/24 21:31 10/20/24 04:18 Simethicone 125 Mg Chew Tab PO 125 mg QID PRN Administration gas, bloating Radiology Results: ITS Impressions Chest CT 10/12/24 19:30 IMPRESSION: Scattered small, likely infectious/inflammatory foci, overlying a background of severe emphysematous change and largely stable areas of parenchymal scarring. Mild esophagitis/gastritis. Hepatic steatosis. Venous Doppler Study 10/16/24 11:25 IMPRESSION: 1. No deep venous thrombosis. Chest X-Ray 10/20/24 07:05 IMPRESSION: Chronic interstitial change with mild pulmonary vascular congestion and a small right-sided pleural effusion. Labs Labs: Laboratory Results - last 24 hr 10/19/24 10:25 WBC 14.3 H RBC 4.25 Hgb 13.1 Hct 41.5 MCV 97.6 MCH 30.8 MCHC 31.6 L RDW 13.2 Plt Count 223 MPV 10.7 H Sodium 140 Potassium 3.6 Chloride 97 L Carbon Dioxide 38 H Anion Gap 5 BUN 18 H Creatinine 0.73 Estim Creat Clear Calc 45 Estimated GFR > 60 Glucose 132 H Calcium 9.1
[2024-10-20] MEDS: [UNRECOGNIZED DRUG - OTHER] INHALATION ×2 (08:20→22:04)
[2024-10-20] MEDS: BUDESONIDE INHALATION ×2 (08:20→22:04)
[2024-10-20] MEDS: GLYCOPYRROLATE INHALATION ×2 (08:20→22:04)
[2024-10-20] MEDS: FORMOTEROL FUMARATE INHALATION ×2 (08:20→22:04)
[2024-10-20] MEDS: PANTOPRAZOLE 40 MG TABLET PO (08:52)
[2024-10-20] MEDS: guaiFENesin 12 HR 600 MG TABCR 1200 MG PO ×2 (08:52→20:59)
[2024-10-20] MEDS: FLECAINIDE ACETATE 100 MG TABLET PO ×2 (08:52→20:58)
[2024-10-20] MEDS: dilTIAZem HCL CD 120 MG CAP.24HR PO (08:53)
[2024-10-20] MEDS: MAGNESIUM OXIDE 400 MG TABLET PO (08:53)
--- NOTE | 2024-10-20 11:34 | PM.PNPUL ---
Progress Note: A&P Assessment and Plan (1) Respiratory syncytial virus (RSV): Qualifiers: RSV infection type: unspecified Qualified Code(s): B33.8 - Other specified viral diseases Code(s): B33.8 - Other specified viral diseases Status: Acute Assessment and Plan: Patient tested positive for RSV 10/12/24. Patient is had worsening work of breathing without hypercarbic respiratory failure on BiPAP. Most recent ABG on BiPAP 12/6 on 10/13/24 was 7.32/42/105. 10/14/2024: The patient says she is better. She was only able to tolerate 10 minutes off the BiPAP to eat lunch. Currently she is on BiPAP rate of 4 breathing 20, pressures 12/6 with tidal volumes 447 and 30% FiO2 with saturations 98%. She said the BiPAP was uncomfortable and I changed her to a noninvasive ventilation with the AVAPS mode rate of 14, tidal volume 450, EPAP 5, minimal inspiratory pressure 6, maximal inspiratory pressure 25, rise of 1 fastest, inspiratory time 1.0, FiO2 28%. She said these settings were more comfortable. Today are white blood cell count is 19.0, creatinine 0.81. Approximately 1 hour later patient had worsening respiratory distress stating that the BiPAP for rate of 4 pressures 12/6 was better for her and she was switched back to this. Plan: Treatment for RSV pneumonia is supportive. Initially did better with AVAPS mode but then requested to go back on straight BiPAP as this was more comfortable for her. Agree with treatment for other possible conditions including COPD exacerbation, bacterial pneumonia, and cardiac conditions. Echocardiogram with normal biventricular size and function. No significant valvular disease, left atrium is normal. The right atrium is normal. RVSP 37%. 10/15/24: patient has remained on BiPAP overnight. She tolerated being off BiPAP and on 4 L for 25 minutes this morning prior to breakfast and for 20 minutes at breakfast time. Currently she denies shortness of breath and is on the BiPAP and says she is comfortable. BNP is 998. Procalcitonin is decreased from 0.3 on 10/13 to 0.1 today. she is awake and following commands. Plan: Continue supportive treatment with BiPAP for work of breathing. goal saturation 90-94% was supplemental oxygen as required. She is empirically being treated for bacterial infection with ceftriaxone day 4 and azithromycin followed by doxycycline day 4. She is afebrile with no leukocytosis and her procalcitonin is decreasing. Will discontinue antibiotics tomorrow. 10/16/24: Overall patient tells me she is little bit better. She has remained essentially BiPAP dependent other than taking this off for 20-30 minutes a time 4 times yesterday To eat meals and take medicines. currently she is on BiPAP rate of 4 breathing 22, 12/, tidal volume 541 25% FiO2 saturations 99%. When she comes off of BiPAP she oxygenates on 4 L nasal cannula. she is afebrile.Her white blood cell count 19.0. Chest x-ray with no focal infiltrates, no pleural effusions, no pneumothorax. No change from 10/12/2024. Plan: Continue supportive care treatment with BiPAP for work of breathing. Goal saturation 90-94%. day 5 of ceftriaxone and doxycycline, No evidence of bacterial infection and will discontinue after today's dose. 10/17/2024: Patient feels a little bit better. Detailed notes by the daughter in the room shows that she was off the BiPAP yesterday for 8 hours and 5 minutes. Currently she is on BiPAP 25% with saturations 97%. She is afebrile. White blood cell count 12.8, creatinine 0.74. Weight is 50.4, cumulative she is 6.9 L positive since admission. Plan: continue supportive care with BiPAP for work of breathing. She is stable off the antibiotics since yesterday. 10/18/24: Patient is off BiPAP for 8 hours and 35 minutes yesterday. Currently she is off BiPAP. She states she is a little better each day. She is afebrile. Patient is on 2 L with saturations 96% and comfortable. Yesterday she was positive 540 mL. Her weight today is 50 kg. Overall she is 7.8 L positive from admission. She had a bowel movement last night and this helped her breathing. Plan: Supportive care with BiPAP p.r.n. for support. Remains stable off of antibiotics for 48 hours. 10/19/2024: Patient was on the BiPAP for 10 hours and 10 minutes yesterday. she tolerates nasal cannula 2 L. overall she says she is getting a little stronger each day and breathing a little better. Her cough persists. She has a little phlegm with no hemoptysis. She is afebrile. White blood cell count 14.3, creatinine 0.73. She was positive 980 mL yesterday. Cumulative she is 8.4 L positive. Her weight today is 50.4 with an admission weight of 49. I took her off the BiPAP this morning and placed her on 2 L nasal cannula her saturations were 98%. Plan: Supportive care with BiPAP as needed. Will check a chest x-ray in the morning. Goal saturation 90-94% and on 2 L she was 98%. Wean as tolerated. 10/20/24: Patient was on the BiPAP for 2 hours and 30 minutes yesterday afternoon. she slept last night off BiPAP on 2 L nasal cannula and said that she slept pretty well but was woken up frequently. Overall her breathing is improved and she is 80% back to her normal. She has a dry cough. Currently she is on 2 L nasal cannula with saturations 100%. Yesterday she was -590 mL and had urinary retention last night requiring a Lee and discontinuation of her myrbetriq. chest x-ray with mild interstitial infiltrates small right pleural effusion and no change since 10/16/2023. Plan: Supportive care with BiPAP as needed. Goal saturation 90-94% and on 2 L she was 98%. Wean as tolerated. at home sometimes the patient is on room air at rest. Discussed with Dr. Abbasi. Will follow with you. (2) COPD (chronic obstructive pulmonary disease): Code(s): J44.9 - Chronic obstructive pulmonary disease, unspecified Status: Acute Assessment and Plan: Patient with a history of 47 pack year tobacco use, Alpha 1 anti trypsin genotype MM, PFTs 11/02/2021 with a severe obstructive abnormality, FEV 1 is 0.74 L, 38% predicted, bronchodilator response, air trapping, hyperinflation and a DLCO that was severely decreased when adjusted for alveolar volume, 1st CT scan of the chest in our system from 12/14/2021 with severe panlobular emphysema throughout all lung christ[place], hypoxic respiratory failure requiring 2 L at rest, with ambulation and with sleep. No evidence of hypercarbic respiratory failure dating back to 01/17/2022 with a blood gas of 7.36/43/64 on room air. Echocardiogram with tricuspid regurgitation peak gradient 42 on 06/11/2022. She developed a multifocal necrotic pneumonia on 08/30/2022 and completed 6 weeks of antibiotics on 10/16/2022. Outpatient exacerbation 10/2023 and 12/2023. 10/24/2022 with CBC with white blood cell count 14.4, eosinophils 0%. 09/24/2022 CBC with white blood cell count 9.6, eosinophils 0.2%=19.2. 10/12/2024: BNP 743. 10/13/24: Procalcitonin 0.3. 10/14/24: Plan: Patient had been on Solu-Medrol 40 mg IV q.6 hours, day 3 of systemic steroids. I will decrease to 20 mg IV q.6. Continue ipratropium and levalbuterol and will increase the frequency to q.4 hours. Discontinue trelegy as patient is on maximal dose beta agonist, muscarinic antagonists and steroids. I will place the patient on guaifenesin 1200 mg p.o. b.i.d. and give her 2 600 mg tablets because she cannot swallow the 1200 mg tablets. Patient currently treated for bacterial pneumonia with ceftriaxone day 3, and azithromycin 1 dose on 10/12/2024 followed by doxycycline now day 2. I will send urine for Legionella, urine for pneumococcal and serum mycoplasma IgM. MRSA swab is negative. weight today is 46.7 with an admission weight of 49 . since admission she is 5.1 L positive. will check BnP on 10/15/2024. 10/15 Patient has no wheezing today. Plan: Today is day 4 of systemic steroids and I will give her 40 mg of prednisone tomorrow and then discontinue. Continue ipratropium and levalbuterol q.4 hours. Continue guaifenesin 1200 mg p.o. q.12 hours. 10/16/24: Mild expiratory wheezes today. Swelling of the left upper extremity Plan: Today is day 5 of systemic steroids and currently on 40 mg p.o.. Will continue. Continue ipratropium and levalbuterol nebulizers q.4 hours. Continue guaifenesin 1200 mg p.o. q.12 hours. I will order left upper extremity Doppler. 10/17/2024: No wheezes today. Upper extremity Dopplers negative for DVT Plan: I will discontinue steroids after today's dose. 10/18/24: Patient is stable with no wheezes. Off of steroids for 24 hours. Plan: Continue levalbuterol and ipratropium nebulizers q.4 hours. Could continue guaifenesin 1200 mg p.o. b.i.d.. 10/19/2024: The patient states that when she takes the nebulizers off the BiPAP this fatigue her she requested to be put back on the BiPAP just to get her nebulizer. She thinks she could tolerate her home breztri. breztri has worked better than trelegy in the past. plan: I will make her nebulizers p.r.n. and the family is brought in her home breztri and I will initiate this. 10/20/24: Patient is tolerating her home breztri. She had urinary retention last night. Of note prior to this hospitalization she has been on inhaled long-acting muscarinic antagonist for at least 5 years initially with trelegy and for the last 3 months with breztri. I doubt that the inhaled long-acting muscarinic antagonists are causing her urinary retention. Agree with discontinuation of myrbetriq and if there are still issues will discontinue inhaled long-acting muscarinic antagonist Subjective Date/time seen: 10/20/24 11:34 Interval history: 10/14/2024: This is a new pulmonary consult for COPD with RSV pneumonia. Patient has a history of GOLD grade 3 group B COPD On home oxygen, atrial fibrillation on Xarelto, hypertension, hyperlipidemia and followed in the [facility] in last seen on 06/26/2024: Regarding her COPD, patient with a history of 47 pack year tobacco use, Alpha 1 anti trypsin genotype MM, PFTs 11/02/2021 with a severe obstructive abnormality, FEV 1 is 0.74 L, 38% predicted, bronchodilator response, air trapping, hyperinflation and a DLCO that was severely decreased when adjusted for alveolar volume, 1st CT scan of the chest in our system from 12/14/2021 with severe panlobular emphysema throughout all lung christ[place], hypoxic respiratory failure requiring 2 L at rest, with ambulation and with sleep. No evidence of hypercarbic respiratory failure dating back to 01/17/2022 with a blood gas of 7.36/43/64 on room air. Echocardiogram with tricuspid regurgitation peak gradient 42 on 06/11/2022. She developed a multifocal necrotic pneumonia on 08/30/2022 and completed 6 weeks of antibiotics on 10/16/2022. Outpatient exacerbation 10/2023 and 12/2023. 10/24/2022 with CBC with white blood cell count 14.4, eosinophils 0%. 09/24/2022 CBC with white blood cell count 9.6, eosinophils 0.2%=19.2. recently she has been wearing 2.5 L at rest, 2.5 L with activity and 3 L at night. 09/03/2024: Patient called with bronchitis, shortness of breath, productive cough with brown phlegm and was treated with amoxicillin and prednisone. Patient tells me she improved but did not completely get back to her normal. 10/08/2024: Patient called and stated she is having cough, chest congestion, increased phlegm production, sore throat, using Mucinex and this helps her cough up her phlegm. She is having no fever no wheezes. She states this feels like her bronchitis. I will prescribe azithromycin x5 days. 10/12/2024 patient presented to the emergency department with shortness of breath, fevers and respiratory distress. Blood pressure is 179/79, heart rate 119, saturations on 3 L 77%. Placement was started on BiPAP. White blood cell count 7.8, eosinophils 0, creatinine 0.95, BNP 743, COVID, influenza RT PCR negative. RSV RT PCR positive. MRSA swab negative. ABG on BiPAP 7.26/51/106. CT scan of the chest showed severe panlobular emphysema, stable scarring right upper lobe and left upper lobe no pleural effusions and no ground-glass infiltrates. Patient was admitted to the hospital and treated empirically for RSV, pneumonia and COPD exacerbation. 10/13/2024: ABG on BiPAP 12/6 and 30% FiO2 was 7.32/42/105. 10/14/2024: The patient says she is better. She was only able to tolerate 10 minutes off the BiPAP to eat lunch. Currently she is on BiPAP rate of 4 breathing 20, pressures 12/6 with tidal volumes 447 and 30% FiO2 with saturations 98%. She said the BiPAP was uncomfortable and I changed her to a noninvasive ventilation with the AVAPS mode rate of 14, tidal volume 450, EPAP 5, minimal inspiratory pressure 6, maximal inspiratory pressure 25, rise of 1 fastest, inspiratory time 1.0, FiO2 28%. She said these settings were more comfortable. Today are white blood cell count is 19.0, creatinine 0.81. Approximately 1 hour later patient had worsening respiratory distress stating that the BiPAP for rate of 4 pressures 12/6 was better for her and she was switched back to this. 10/15/24: patient has remained on BiPAP overnight. She tolerated being off BiPAP and on 4 L for 25 minutes this morning prior to breakfast and for 20 minutes at breakfast time. Currently she denies shortness of breath and is on the BiPAP and says she is comfortable. BNP is 998. Procalcitonin is decreased from 0.3 on 10/13 to 0.1 today. she is awake and following commands. 10/16/24: Overall patient tells me she is little bit better. She has remained essentially BiPAP dependent other than taking this off for 20-30 minutes a time 4 times yesterday To eat meals and take medicines. currently she is on BiPAP rate of 4 breathing 22, 12/6, tidal volume 541 25% FiO2 saturations 99%. When she comes off of BiPAP she oxygenates on 4 L nasal cannula. she is afebrile.Her white blood cell count 19.0. Chest x-ray with no focal infiltrates, no pleural effusions, no pneumothorax. No change from 10/12/2024. 10/17/2024: Patient feels a little bit better. Detailed notes by the daughter in the room shows that she was off the BiPAP yesterday for 8 hours. Currently she is on BiPAP 25% with saturations 97%. She is afebrile. White blood cell count 12.8, creatinine 0.74. Weight is 50.4, cumulative she is 6.9 L positive since admission. 10/18/24: Patient is on BiPAP for 8 hours and 35 minutes yesterday. Currently she is off BiPAP. She states she is a little better each day. She is afebrile. Patient is on 2 L with saturations 96% and comfortable. Yesterday she was positive 540 mL. Her weight today is 50 kg. Overall she is 7.8 L positive from admission. She had a bowel movement last night and this helped her breathing. 10/19/2024: Patient was on the BiPAP for 10 hours and 10 minutes yesterday. she tolerates nasal cannula 2 L. overall she says she is getting a little stronger each day and breathing a little better. Her cough persists. She has a little phlegm with no hemoptysis. She is afebrile. White blood cell count 14.3, creatinine 0.73. She was positive 980 mL yesterday. Cumulative she is 8.4 L positive. Her weight today is 50.4 with an admission weight of 49. I took her off the BiPAP this morning and placed her on 2 L nasal cannula her saturations were 98%. 10/20/24: Patient was on the BiPAP for 2 hours and 30 minutes yesterday afternoon. she slept last night off BiPAP on 2 L nasal cannula and said that she slept pretty well but was woken up frequently. Overall her breathing is improved and she is 80% back to her normal. She has a dry cough. Currently she is on 2 L nasal cannula with saturations 100%. Yesterday she was -590 mL and had urinary retention last night requiring a Lee and discontinuation of her myrbetriq ? DATA: 10/14/2024: Echo Summary 1. Complete two-dimensional, color flow and Doppler transthoracic echocardiogram is performed. 2. There is normal biventricular size and systolic function. 3. There is no significant valvular disease. Left Ventricle The left ventricle is normal in size and systolic function. The left ventricular ejection fraction is visually estimated to be 65-70%. Right Ventricle The right ventricle is normal in size and systolic function. Left Atria The left atrium is normal size. Right Atria The right atrium is normal size. RVSP 37 10/12/24: EXAMINATION: CT diagnostic chest w con INDICATION: sob, copd hypoxia, cough COMPARISON: 08/19/2024; x-ray chest 10/12/2024. FINDINGS: CHEST: Thoracic aorta: No significant dilation. No dissection. Moderate atherosclerotic plaque. Lung parenchyma and airways: Biapical pleural scarring. Stable irregular nodular scarring in the bilateral upper lobes and superior segment of the left lower lobe. Scattered smaller areas of scarring peripherally and in the bases. Small foci of tree-in-bud like opacities in the right middle lobe and lingula. Emphysematous change. Calcified left lower lobe granuloma. Patent airways. Thoracic inlet, axillae and chest wall: No thyroid or soft tissue mass. No axillary lymphadenopathy. Mediastinum: No mass or lymphadenopathy. Heart and pericardium: Normal heart size. No pericardial effusion. Coronary artery calcifications: Mild. Pleura: No effusion or mass. Upper abdomen: Mild distal esophageal and gastric wall edema. Diffuse fatty infiltration of the liver. Thoracic bones: No acute osseous finding in the chest. Stable mild compression deformities in the thoracic spine. IMPRESSION: Scattered small, likely infectious/inflammatory foci, overlying a background of severe emphysematous change and largely stable areas of parenchymal scarring. Mild esophagitis/gastritis. Hepatic steatosis. 02/20/2024: EXAMINATION:CT diagnostic chest wo con INDICATION: Solitary pulmonary nodule. COMPARISON: Chest CT 09/08/2023, 03/09/2023, 09/08/2022 FINDINGS: There is severe emphysema. There is chronic scarring in left upper lobe. There are perihilar airspace opacities with volume loss in right upper lobe with improvement from 09/08/2023 and 03/09/2023. There are mild airspace opacities in superior segment left lower lobe with worsening from 09/08/2023. There is mild scarring in right lower lobe. There is a 7 mm nodule in left lower lobe, stable from 09/08/2022, likely benign. No pleural effusion. The heart size is normal. There are coronary artery calcifications. No pericardial effusion. Calcifications in the spleen are consistent with old granulomatous disease. There are stones in the kidneys measuring up to 6 mm on the right. There is mild chronic height loss of multiple vertebral bodies. There is mild thoracic spondylosis and severe lumbar spondylosis. IMPRESSION: 1. Continued improvement in perihilar airspace opacities in right upper lobe, consistent with chronic pneumonia. 2. Worsened mild airspace opacities in superior segment left lower lobe, consistent with pneumonia. 3. Severe emphysema. 08/19/24: CT Scan of the Chest without Contrast: Clinical Indication: COPD COMPARISON: 02/20/2024 Findings: There is no evidence of any significant mediastinal, hilar or axillary lymphadenopathy. There are extensive atherosclerotic calcifications of the coronary arteries and aorta. There is no evidence of pleural or pericardial effusion. Stable emphysema and biapical scarring with calcifications. Stable additional irregular nodule in the left upper lobe (axial image 29) disease. Stable irregular nodular scarring in the superior segment left lower lobe. Stable irregular consolidation in the right upper lobe in the perihilar region. Stable chronic scarring or atelectasis at the lingula. Probable irregular airspace opacity focally in the right lower lobe (axial image 64), likely focal infectious/inflammatory process or atelectatic change. Images through the upper abdomen reveal nonobstructing right renal stone. Stable mild compression deformities in the spine. Impression: Multiple areas of scarring and irregular consolidation the lungs are largely stable from prior exam, most prominent in the right perihilar region the upper lobe. Small new peripheral airspace opacity in the right lower lobe, most likely infectious/inflammatory in nature. Stable emphysema. infiltrates stable repeat CT scan in 12 months. 08/29/2023: Alpha 1 anti trypsin genotype MM, normal. 09/08/2023: CT Scan of the Chest without Contrast: Clinical Indication: COPD COMPARISON: 03/09/2023 Findings: There is no evidence of any significant mediastinal, hilar or axillary lymphadenopathy. The mediastinal soft tissues appear normal. There is no evidence of pleural or pericardial effusion. There is biapical scarring. Stable nodule in the superior segment left lower lobe. There is decreased size of nodule/consolidation at the right upper lobe, which currently measures up to approximately 3 cm in diameter. There is chronic scarring at the lingula, unchanged. There is moderate to severe emphysema. Stable additional left lower lobe nodule (axial image 51). Images through the upper abdomen reveal bilateral nonobstructing renal stones. Impression: Irregular somewhat nodular/masslike consolidation right upper lobe, highly decreased in extent from prior exam. This presumably represents slowly resolving pneumonia given interval decrease in size. Stable chronic scarring in the lingula with additional left pulmonary nodules, which also unchanged, as detailed above. Moderate to advanced emphysema. Bilateral nephrolithiasis. 05/23/2023: Overnight oximetry on 3 L nasal cannula.? Duration of recording is 7 hours and 24 minutes.? Baseline saturation 96%.? High saturation 99%.? Low saturation 89%.? Time with saturation less than or equal to 88% was 0 minutes.? Oxygen desaturation index is 3.91.? I will continue 3 L nasal cannula at night. 04/19/2023: Overnight oximetry on 2 L nasal cannula:? Recording duration 8 hours and 35 minutes.? Baseline saturation 95%.? High saturation 99%.? Low saturation 83%.? Time with saturation less than or equal to 88% was 5 minutes and 52 seconds (1.4% of monitored time).? Oxygen desaturation index 6.1. I will increase the oxygen to 3 L and repeat an overnight oximetry. ? ?03/03/2023:? Overnight oximetry on room air.? Duration 1 hour and 57 minutes.? Basal saturation 92.2%.? High saturation 99%.? Low saturation 81%.? Time with saturation less than or equal to 88% was 6 minutes and 15 seconds (5% of the monitored time).? Oxygen desaturation events is 34 events per hour.? I will order 2 L nasal cannula repeat overnight oximetry on 2 L nasal cannula. 03/09/23 EXAMINATION: CT diagnostic chest wo con ?INDICATION: Pneumonia, unspecified organism, left upper lobe. ?09/29/2022 CTA examination report of unchanged 8 mm pulmonary nodules of left lower lobe, likely sequelae of old granulomatous disease, but would consider 6-12 month follow ?COMPARISON: October 24, 2022 portable AP chest ?09/29/2022 CT pulmonary scan ?FINDINGS: Chronic bilateral apical fibrocalcific scarring. ?Severe emphysematous changes are again noted. ?There is contraction of the prominent consolidation of the left upper lobe and lingula since 09/29/2022 consistent with postinfectious scarring and left upper lobe atelectasis. ?Stable approximately 6 mm superior segment left lower lobe pulmonary nodule with attenuation up to 148 Hounsfield units, likely calcified pulmonary granuloma. Stable approximately 8 mm lateral left lower lobe pulmonary nodule attenuation up to 317 Hounsfield units, also likely a calcified pulmonary granuloma. There is focal lateral left lower lobe basilar discoid atelectasis or scarring. ?There is new prominent consolidation in the left upper lobe in the upper perihilar area since 09/29/2022, likely due to pneumonia. A smaller mass or focal consolidation is noted in the anterolateral right lower lobe measuring up to approximately 2.2 cm maximal dimension. Discoid atelectasis or scarring is noted in the right lower lobe. ?Normal heart size. Coronary artery calcification. No pericardial effusion. ?There is extensive thoracic aortic as well as great vessel calcification. No thoracic aortic aneurysm. ?No hilar or mediastinal mass lesion or lymphadenopathy is noted. ?Normal morphology of the adrenal glands. ?Hepatic and splenic calcified granulomas consistent with old granulomatous disease ?Small sliding hiatal hernia. ?Mild to moderate anterior wedge compression fracture of T11. ?No suspicious osteolytic or osteoblastic lesions are noted. ?IMPRESSION:? 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 home O2 assessment requires 2 L nasal cannula with rest and 2 L with ambulation.?10/06/22 overnight oximetry on 2 L nasal cannula with average saturation 97%, low saturation 93%, time with saturation less than or equal to 88% was 0 minutes. ?09/29/2022 EXAMINATION: CTA chest PE protocol ???INDICATION: Shortness of breath ???COMPARISON: 09/24/2022 and 12/14/2021 ???FINDINGS: ???Excellent contrast opacification of the pulmonary arteries. There is mild streak artifact from dense contrast in the superior vena cava and right atrium. No significant motion artifact yielding diagnostic left study which demonstrates no pulmonary embolism. Mild enlargement of the central pulmonary arteries consistent with pulmonary arterial hypertension. Severe emphysema with moderate chronic partially calcified biapical pleural-parenchymal scarring. ??No interval change in consolidation with volume loss and air bronchograms in the anterior segment of the left upper lobe and the lingula. Also unchanged is additional reticular and minimal patchy airspace opacities in the left lower lobe along the left hemidiaphragm. ???Again seen are a pulmonary nodules in the superior and posterior basilar segments of the left lower lobe unchanged since 12/14/21 and which along with a couple centrally calcified nodules in the left upper lobe and lingula which are now obscured by the consolidation likely sequela of old granulomatous disease. Small posterior layering left pleural effusion. Small amount of mucus in the trachea and right mainstem bronchus. There is complete opacification of the main right lower lobar and more peripheral bronchi consistent with mucous plugging as it is new since 08/30/2022 at which time there were no endobronchial lesions. ??Heart size is normal. Atherosclerotic coronary artery calcifications. No pericardial effusion. Thoracic aorta is normal in caliber. No pathologically enlarged thoracic lymphadenopathy. Is reflux of contrast into the inferior vena cava and hepatic veins consistent with tricuspid regurgitation. Couple splenic calcific lesions consistent with old granulomatous disease. Multiple tiny punctate calcification is at the left kidney consistent with renal stones and/or renal medullary nephrocalcinosis. Mild thoracic and severe upper lumbar spondylosis. ???IMPRESSION: ???1. No pulmonary embolism. ???2. Unchanged consolidation in the left upper lobe and lingula and minimal lung disease at the basilar left lower lobe consistent with ongoing multifocal pneumonia. ???3. Unchanged mucous plugging involving the bronchi throughout the right lower lobe. ???4. Severe emphysema. ???5. Small left pleural effusion. ???6. Unchanged 8 mm pulmonary nodules in the left lower lobe likely sequela of old granulomatous disease but would consider 6-12 month follow-up. ?09/24/2022 EXAMINATION: CTA chest PE protocol ???INDICATION: Shortness of breath. Right chest pressure. ???COMPARISON: Chest CT 09/08/2022, 12/14/21, PET/CT 03/01/17 ???FINDINGS: There is mild scarring at the lung apices. There is severe emphysema. There is mild atelectasis bilaterally. There are airspace opacities in left upper lobe with volume loss and air bronchograms. There are mild airspace opacities in anteromedial basal segment left lower lobe. These finds are consistent with pneumonia. There is an 8 mm nodule in superior segment left lower lobe, stable from 03/01/17, likely benign. There is an 8 mm nodule in left lower lobe, stable from 12/14/2021, probably benign. There is mucous plugging in the right-sided bronchi. There is a small left pleural effusion. The heart size is normal. There are coronary artery calcifications. No pericardial effusion. The central pulmonary arteries are enlarged, consistent with pulmonary arterial hypertension. There is no pulmonary embolus. Calcifications in the spleen are consistent with old granulomatous disease. There is mild thoracic spondylosis and severe lumbar spondylosis. ???IMPRESSION: ???1. No pulmonary embolus. ???2. Left-sided pneumonia predominantly involving left upper lobe. ???3. Right-sided mucous plugging. ???4. Severe emphysema. ???5. Small left pleural effusion. ???6. Stable 8 mm pulmonary nodule, probably benign. Noncontrast low-dose chest CT is recommended in 6 months. ? ??09/09/2022:? Home O2 assessment.? Rest room air saturation 87%.? 1 L nasal cannula rest saturation 93%.? Exercise 1 L nasal cannula saturation 90%.??Patient requires 1 L at rest and with ambulation. ??09/08/2022 CT Scan of the Chest without Contrast: ???Clinical Indication: Pneumonia ???COMPARISON: 08/30/2022 ???Findings: ???There is no evidence of any significant mediastinal, hilar or axillary lymphadenopathy. Coronary artery calcium case is are present. No aortic aneurysm. ???There is no evidence of pleural or pericardial effusion. ???Extensive consolidation of the lingula is again present. There has been significant improvement in the airspace disease in the posterior superior left upper lobe as compared to prior exam, but the extensive lingular consolidation is largely unchanged. Questionable focal areas of cavitation or necrosis within the consolidation. ???Small left pleural effusion is present. There is interstitial prominence and mild airspace disease dependently adjacent to the effusion and left lower lobe. ???Stable focal pulmonary nodules in the superior segment left lower lobe (axial image 31), and more inferiorly in the left lower lobe (axial image 58). Previously noted left upper lobe nodule may be obscured by consolidation. ???Right lung is clear. Moderate to severe emphysema present. ???Images through the upper abdomen reveal partially imaged nonobstructing right renal stone. Suspected medullary nephrocalcinosis bilaterally. ???Impression: Extensive lingular pneumonia is essentially unchanged from prior exam. Questionable areas of cavitation or necrosis within the consolidation. ???Consolidation seen previously in the posterior superior left upper lobe is essentially resolved. ???Small left pleural effusion. Dependent interstitial thickening and haziness adjacent to the effusion is present, which could reflect atelectatic change versus additional pneumonia. ???Stable left lower lobe pulmonary nodules, as detailed above. Moderate to severe emphysema. ?08/30/2022 ???Clinical Indication: Chest pain, shortness of breath ???CT Scan of the Chest with Contrast: ???COMPARISON: 12/14/2021 ???Findings: There is no evidence of any significant mediastinal, hilar or axillary lymphadenopathy. There is no filling defect in the pulmonary arterial tree to suggest pulmonary embolus. There is no evidence of aortic dissection or aneurysm. ???There is no evidence of pleural or pericardial effusion. ???There is extensive left upper lobe and lingular consolidation. Underlying diffuse moderate to severe emphysema present. Stable nodules in the left upper and lower lobes (axial images 53, 61). ???Images through the upper abdomen reveal no abnormalities. ???Impression:No evidence of pulmonary embolus, aortic dissection, or aortic aneurysm. ???Extensive left upper lobe pneumonia. Follow-up to radiographic resolution advised. ???Underlying moderate to severe diffuse emphysema. ?? 12/15/2021 EXAMINATION: CT diagnostic chest wo con ?INDICATION: Lung nodules ?COMPARISON: PET/CT, 03/01/2017 ?FINDINGS: There is severe emphysema. There are multiple calcified nodules of the lungs, consistent with old granulomatous disease. There is a stable 7 mm noncalcified nodule in the superior segment of the left lower lobe on image 37. There is a 7 mm nodule of the left lower lobe on image 64 which previously measured 3 mm. Scarring is noted in the lung apices. There is no pleural effusion or pneumothorax. The lungs are free of acute opacities. No pathologically enlarged thoracic lymph nodes are identified. The heart size is normal. Punctate calcifications in an otherwise normal spleen likely represent healed granulomatous disease. There is mild thoracic spondylosis. There is severe upper lumbar spondylosis. ?IMPRESSION: ?1. 7 mm nodule of the left lower lobe with increase in size since the prior examination, granulomatous disease versus malignancy. Recommend follow-up CT in 3-6 months. Multiple additional stable pulmonary nodules with and without calcification likely reflect old granulomatous disease. ?2. Severe emphysema. ??11/02/2021:? PFTs ??The test was performed and results interpreted in accordance with the 2019 and 2005 ATS/ERS Task Force guidelines respectively using the Global Lung Function Initiative-2012 reference equations. Patient demonstrated good effort and cooperation. Reproducibility criteria were met. The quality of the pre bronchodilator spirometry maneuver was Grade A and post bronchodilator spirometry maneuver was Grade B. ??Findings: ??Spirometry:? There is decreased maximal expiratory airflow at all lung volumes with concave expiratory flow tracing.? The contour the inspiratory flow tracing is normal.? The pre bronchodilator FVC is 1.68 L, 68% predicted.? The pre bronchodilator FEV1 is 0.74 L, 38% predicted.? The pre bronchodilator FEV1:? FVC ratio is 44%.? The post bronchodilator FVC is 2.22 L, representing a 32% increase.? The post bronchodilator FEV1 is 0.68 L, representing a 7% decrease.? The post bronchodilator FEV1:? FVC ratio is 31%. ??Plethysmography:? The total lung capacity is 8.60 L, representing 187% predicted.? The functional residual capacity is 7.53 L, 287% predicted.? The residual volume is 6.45 L, 307% predicted. ??Diffusing Capacity:? The diffusing capacity unadjusted for hemoglobin and carboxyhemoglobin is 4.4, 23% predicted.? Diffusing capacity adjusted for alveolar volume is 1.34, 31% predicted. ??My impression:?There is a severe obstructive abnormality?with significant improvement after inhaling a single dose of albuterol. The increase in residual volume is consistent with air trapping from an obstructive abnormality.? Hyperinflation is present as demonstrated by the increase in functional residual capacity and total lung capacity and is consistent with an obstructive abnormality. The diffusing capacity unadjusted for hemoglobin and carboxyhemoglobin is severely decreased and remains severely decreased when adjusted for alveolar volume. ??There are no prior studies for comparison Review of Systems Constitutional: Constitutional: Reports no additional constitutional complaints Eyes: Eyes: Reports no additional eye complaints ENT: Reports system reviewed and no additional complaints, except as documented Cardiovascular: Cardiovascular: Reports no additional cardiovascular complaints Respiratory: Respiratory: Reports no additional respiratory complaints Gastrointestinal: Gastrointestinal: Reports no additional gastrointestinal complaints Musculoskeletal: Musculoskeletal: Reports no additional musculoskeletal complaints Neurologic: Reports system reviewed and no additional complaints, except as documented Psychiatric: Psychiatric: Reports no additional psychiatric complaints Endocrine: Endocrine: Reports no additional endocrine complaints Hematologic/Lymphatic: Hematologic/Lymphatic: Reports no additional hematologic/lymphatic complaints Allergic/Immunologic: Allergic/Immunologic: Reports no additional allergic/immunologic complaints Exam Narrative: patient is on BiPAP. Const: General: cooperative, healthy appearing and comfortable Orientation/consciousness: oriented to person, oriented to place and oriented to time HENMT: Head: normal to inspection Ears: hearing grossly normal bilaterally Eyes: General: appearance normal, both eyes and all related structures Neck: Neck: normal visual inspection Chest: Chest palpation & inspection: normal inspection of the chest Resp: Effort & Inspection: normal respiratory effort and able to speak in complete sentences Auscultation: no crackles, no rales, no rhonchi, no wheezes and diminished lung sounds Other: No wheezes today Cardio: Jugular venous distension: no JVD GI: Inspection: normal to inspection Skin: General skin exam: normal color Neuro: General: oriented to person, oriented to place and oriented to time Extrem: General: normal to inspection and no edema Psych: Appearance: grossly normal Objective Data Vital Signs Vital Signs: Vital Signs - 24 hr 10/19/24 11:43 10/19/24 12:00 10/19/24 12:00 Temperature 36.5 C Pulse Rate 94 94 Respiratory Rate 28 H Blood Pressure 139/58 L Pulse Oximetry 99 94 Oxygen Delivery Nasal Cannula Oxygen Flow Rate 2 Fraction of Inspired Oxygen 10/19/24 12:03 10/19/24 14:00 10/19/24 15:50 Temperature 36.1 C L Pulse Rate 92 86 Respiratory Rate 21 H Blood Pressure 142/81 H Pulse Oximetry 98 98 Oxygen Delivery Nasal Cannula Oxygen Flow Rate 2 Fraction of Inspired Oxygen 10/19/24 16:00 10/19/24 16:00 10/19/24 17:39 Temperature Pulse Rate 90 97 Respiratory Rate 20 Blood Pressure Pulse Oximetry 97 Oxygen Delivery Nasal Cannula Oxygen Flow Rate 2 Fraction of Inspired Oxygen 10/19/24 18:00 10/19/24 20:00 10/19/24 20:00 Temperature 36.7 C Pulse Rate 97 101 H Respiratory Rate 19 Blood Pressure 148/65 H Pulse Oximetry 97 97 Oxygen Delivery Nasal Cannula Oxygen Flow Rate 2 Fraction of Inspired Oxygen 10/19/24 20:00 10/19/24 20:37 10/19/24 21:04 Temperature Pulse Rate 94 99 92 Respiratory Rate 20 Blood Pressure Pulse Oximetry Oxygen Delivery Oxygen Flow Rate Fraction of Inspired Oxygen 10/19/24 22:00 10/20/24 00:00 10/20/24 00:00 Temperature 36.6 C Pulse Rate 97 94 94 Respiratory Rate 18 Blood Pressure 135/78 Pulse Oximetry 99 Oxygen Delivery Oxygen Flow Rate Fraction of Inspired Oxygen 10/20/24 00:00 10/20/24 02:00 10/20/24 03:58 Temperature Pulse Rate 93 91 Respiratory Rate 22 H Blood Pressure Pulse Oximetry 99 Oxygen Delivery Nasal Cannula Oxygen Flow Rate 2 Fraction of Inspired Oxygen 10/20/24 04:00 10/20/24 04:00 10/20/24 04:00 Temperature 36.6 C Pulse Rate 91 90 Respiratory Rate 19 Blood Pressure 150/75 H Pulse Oximetry 99 99 Oxygen Delivery Nasal Cannula Oxygen Flow Rate 2 Fraction of Inspired Oxygen 10/20/24 04:09 10/20/24 06:00 10/20/24 08:00 Temperature Pulse Rate 98 92 Respiratory Rate 22 H Blood Pressure Pulse Oximetry 98 Oxygen Delivery Nasal Cannula Oxygen Flow Rate 2 Fraction of Inspired Oxygen 10/20/24 08:05 10/20/24 08:21 10/20/24 08:21 Temperature 36.6 C Pulse Rate 87 98 Respiratory Rate 20 24 H Blood Pressure 139/72 Pulse Oximetry 98 97 Oxygen Delivery Nasal Cannula Oxygen Flow Rate 2 Fraction of Inspired Oxygen 10/20/24 08:52 10/20/24 10:10 10/20/24 10:10 Temperature Pulse Rate 99 95 Respiratory Rate 24 H Blood Pressure Pulse Oximetry 96 Oxygen Delivery Nasal Cannula Oxygen Flow Rate 2 Fraction of Inspired Oxygen 10/20/24 10:22 Temperature Pulse Rate 96 Respiratory Rate 22 H Blood Pressure Pulse Oximetry Oxygen Delivery Oxygen Flow Rate Fraction of Inspired Oxygen Intake/Output Intake/Output: Intake & Output 10/17/24 10/18/24 10/19/24 10/20/24 23:59 23:59 23:59 23:59 Intake Total 1340 1180 360 480 Output Total 800 044 550 9577 Balance 540 980 -590 -520 Meds/Results Medications: Active Medications Generic Name Dose Route Start Last Admin Trade Name Freq PRN Reason Stop Dose Admin Acetaminophen 650 mg 10/12/24 20:30 10/19/24 08:29 Acetaminophen 325 Mg Tablet PO 650 mg Q4H PRN Administration Mild Pain (1-3) or Fever Al Hydrox/Mg Hydrox/Simethicone 30 ml 10/19/24 15:25 Mag Hydrox/Al Hydrox/Simeth 30 Ml Udc PO Q6H PRN Indigestion Alprazolam 0.25 mg 10/17/24 08:50 Alprazolam (*Crx) 0.25 Mg Tablet PO Q6H PRN Anxiety Dextrose 12.5 gm 10/12/24 20:30 Dextrose 50% 25 Gm/50 Ml Syringe IV PUSH PRN PRN Hypoglycemia Protocol Diltiazem HCl 120 mg 10/13/24 09:00 10/20/24 08:53 Diltiazem Hcl Cd 120 Mg Cap.24hr PO 120 mg DAILY ANIYA Administration Flecainide Acetate 100 mg 10/13/24 17:40 10/20/24 08:52 Flecainide Acetate 100 Mg Tablet PO 100 mg Q12HR ANIYA Administration Glucose 15 gm 10/12/24 20:30 Glucose Oral Gel 15 Gm Of Glucse In 37.5 Gm Tube PO PRN PRN Hypoglycemia Protocol Guaifenesin 1,200 mg 10/14/24 21:00 10/20/24 08:52 Guaifenesin 12 Hr 600 Mg Tabcr PO 1,200 mg Q12HR ANIYA Administration Hydralazine HCl 10 mg 10/17/24 08:50 Hydralazine Hcl 20 Mg/Ml Vial IV PUSH Q6H PRN Blood Pressure - High Dextrose 1,000 mls @ 100 mls/hr 10/12/24 20:30 Dextrose 5% 1,000 Ml IVPB PRN PRN Hypoglycemia Protocol Ipratropium [place] 0.5 mg 10/19/24 09:54 10/20/24 10:10 Ipratropium Br 0.02% Inh Soln 0.5 Mg/2.5 Ml Vial INHALATION 0.5 mg Q4HRT PRN Administration Shortness Of Breath Levalbuterol HCl 0.63 mg 10/19/24 09:54 10/20/24 10:10 Levalbuterol Neb 1.25 Mg/3 Ml INHALATION 0.63 mg Q4HRT PRN Administration Wheezing Magnesium Oxide 400 mg 10/15/24 09:00 10/20/24 08:53 Magnesium Oxide 400 Mg Tablet PO 400 mg DAILY ANIYA Administration Mirabegron 25 mg 10/13/24 09:00 10/19/24 08:29 Mirabegron 25 Mg Er Tablet PO 25 mg DAILY ANIYA Administration * Home Med * ( 2 each 10/19/24 12:35 10/20/24 08:20 [place]) Budesonide/ INHALATION 11/18/24 12:34 2 each Glycopyrrolate/ Q12HRT ANIYA Administration Formoterol Fumarate 160 Mcg-9 Mcg-4.8 Mcg Pantoprazole Sodium 40 mg 10/20/24 09:00 10/20/24 08:52 Pantoprazole 40 Mg Tablet PO 40 mg QAM ANIYA Administration Polyethylene Glycol 17 gm 10/16/24 18:15 10/20/24 08:53 Polyethylene Glycol 3350 17 Gm Powd.Pack PO Not Given QAM ANIYA Pravastatin Sodium 20 mg 10/12/24 23:40 10/19/24 20:37 Pravastatin Sodium 20 Mg Tablet PO 20 mg HS ANIYA Administration Rivaroxaban 15 mg 10/14/24 21:00 10/19/24 20:37 Rivaroxaban 15 Mg Tablet PO 15 mg 2100 ANIYA Administration Senna/Docusate Sodium 1 tab 10/16/24 18:25 10/20/24 08:53 Senna/Docusate Sodium Tablet PO Not Given BID ANIYA Simethicone 125 mg 10/19/24 21:31 10/20/24 04:18 Simethicone 125 Mg Chew Tab PO 125 mg QID PRN Administration gas, bloating Radiology Results: ITS Impressions Chest CT 10/12/24 19:30 IMPRESSION: Scattered small, likely infectious/inflammatory foci, overlying a background of severe emphysematous change and largely stable areas of parenchymal scarring. Mild esophagitis/gastritis. Hepatic steatosis. Venous Doppler Study 10/16/24 11:25 IMPRESSION: 1. No deep venous thrombosis. Chest X-Ray 10/20/24 07:05 IMPRESSION: Chronic interstitial change with mild pulmonary vascular congestion and a small right-sided pleural effusion.
[2024-10-20] MEDS: SENNA/DOCUSATE SODIUM TABLET 1 TAB PO (16:57)
--- NOTE | 2024-10-20 18:54 | PC.NURSE ---
On 10/19/24, 10/20/24, the RN, Lexii Pinzon, provided care and completed [facility] documentation on this patient. I have reviewed the RN's documentation and agree with the findings.
[2024-10-20] MEDS: PRAVASTATIN SODIUM 20 MG TABLET PO (20:59)
[2024-10-20] MEDS: RIVAROXABAN 15 MG TABLET PO (20:59)
[2024-10-21] VITALS (25 sets, daily range): BP systolic 136–149; BP diastolic 65–73; PULSE 82–104; RESP 16–24; TEMP 35.9–36.7; O2SAT 95–100
[2024-10-21] MEDS: IPRATROPIUM BR 0.02% INH SOLN 0.5 MG/2.5 ML VIAL INHALATION ×2 (02:44→14:25)
[2024-10-21] MEDS: LEVALBUTEROL NEB 1.25 MG/3 ML 0.63 MG INHALATION ×2 (02:44→14:25)
[2024-10-21] MEDS: BUDESONIDE INHALATION ×2 (07:44→21:18)
[2024-10-21] MEDS: GLYCOPYRROLATE INHALATION ×2 (07:44→21:18)
[2024-10-21] MEDS: FORMOTEROL FUMARATE INHALATION ×2 (07:44→21:18)
[2024-10-21] MEDS: [UNRECOGNIZED DRUG - OTHER] INHALATION ×2 (07:44→21:18)
[2024-10-21] MEDS: SIMETHICONE 125 MG CHEW TAB PO ×3 (08:50→16:17)
[2024-10-21] MEDS: FLECAINIDE ACETATE 100 MG TABLET PO ×2 (08:51→20:08)
[2024-10-21] MEDS: PANTOPRAZOLE 40 MG TABLET PO (08:51)
[2024-10-21] MEDS: SENNA/DOCUSATE SODIUM TABLET 1 TAB PO (08:51)
[2024-10-21] MEDS: guaiFENesin 12 HR 600 MG TABCR 1200 MG PO ×2 (08:51→20:08)
[2024-10-21] MEDS: MAGNESIUM OXIDE 400 MG TABLET PO (08:51)
[2024-10-21] MEDS: dilTIAZem HCL CD 120 MG CAP.24HR PO (08:52)
--- NOTE | 2024-10-21 09:04 | PCNFU ---
Nutrition Follow-Up Complete: Suboptimal po intake related to varied appetite and intake as evidenced by charted intake PO intake greater than 50% of meals _ goal is being met. Continue with same goal Goal: Pt current nutrition is Heart healthy diet. Ensure Enlive BID (350 kcal, 20 g protein). Nutrition recommendation: No new recommendations. Continue current nutrition care plan and orders. Agree with orders Last recorded weight is 47.9 kg. Bowel Motility: +1 BM 10/18/24. Bowel regimen on board Labs Reviewed: No new labs since 10/19 Meds Noted: Mag ox, senna, miralax Skin: No skin issues Additional Notes: Improving with intakes. Continue with nutrition care plan and orders Monitor intake, wt, labs. Follow up in 7 days.
--- NOTE | 2024-10-21 09:54 | PM.IMPN ---
Progress Note: A&P Assessment and Plan (1) Lactic acidosis: Code(s): E87.20 - Acidosis, unspecified Status: Acute (2) Sepsis: Code(s): A41.9 - Sepsis, unspecified organism Status: Acute (3) Acute on chronic respiratory failure with hypoxia and hypercapnia: Code(s): J96.21 - Acute and chronic respiratory failure with hypoxia; J96.22 - Acute and chronic respiratory failure with hypercapnia Status: Acute (4) Respiratory syncytial virus (RSV): Qualifiers: RSV infection type: unspecified Qualified Code(s): B33.8 - Other specified viral diseases Code(s): B33.8 - Other specified viral diseases Status: Acute Plan This is a 74-year-old female with a past medical history prior tobacco abuse, COPD and chronic respiratory failure on 3 L nasal cannula continuously, atrial fibrillation on Xarelto, hypertension, hypercholesterolemia, polycythemia secondary to hypoxia, pulmonary nodule. She is accompanied by her who she lives with and her daughter. The patient quit smoking 2 years prior and has not been hospitalized since then either. She has been in her normal state of health and does not frequently use her inhalers or nebulizers. In the past 2 days she has used them multiple times due to shortness of breath and a cough productive of green/whitfield sputum. She denies chest pain. On 10/11/2024 the patient presents to [place] [facility] due to severe difficulty breathing. ER nurse practitioner note patient was tripoding on arrival. Tachypnea with respiratory rate 24-27. Vitals otherwise stable. WBC 14.4, hemoglobin 15.4, . Acute on chronic respiratory failure with hypoxia and hypercapnia Patient has chronic respiratory failure Upon arrival in the ED, patient has worsening O2 desaturation, ABG demonstrated hypercapnic, hypoxemic respiratory failure patient has been on BiPAP since arrival Repeat ABG showed improvement symptoms retention Continue current managements off BIPAP 10/20 COPD exacerbation RSV infection. Suspected bacterial pneumonia on vancomycin ceftriaxone and azithromycin, Solu-Medrol 125 mg IV push x1, 2 L normal saline bolus, Patient is on DuoNeb scheduled, albuterol nebulizer. Received Methylprednisolone completed treatment on October 15 Finish antibiotic treatment 10/16 Appreciate pulmonary consultation, follow recommendations Acute renal failure due to Dehydration and sepsis BUN 25, serum creatinine 1.28, baseline creatinine 0.7 Received fluid resuscitation Kidney function improving Discontinue normal saline 75 mL/hour Severe sepsis without shock lactic acidosis with end-organ damage, acute hypoxic respiratory failure and acute kidney injury Resolved Paroxysmal atrial fibrillation on Xarelto, Cardizem 120 mg daily p.o. And flecainide 100 mg b.i.d. p.o. Follow-up echocardiogram 1. Complete two-dimensional, color flow and Doppler transthoracic echocardiogram is performed. 2. There is normal biventricular size and systolic function. 3. There is no significant valvular disease. Chronic hypertension Stable Constipation Start Senokot S 1 tablet b.i.d., MiraLax 1 packet daily Patient has bowel movements every day Restart [employer] Xarelto. Patient wishes to be full code. Home medications will be restarted as appropriate if indicated. Subjective Date/time seen: 10/21/24 09:54 Interval history: I saw examined patient today. Patient feels better today, appetite continue to improve. . Patient t is off BiPAP overnight. Patient has no significant dyspnea at rest, also denies chest pain abdomen pain nausea vomiting diarrhea. Patient afebrile, blood pressure stable. Exam Narrative: GENERAL: Ill-appearing in no acute distress. Moderate malnutrition - EYES: EOMI. Anicteric. - HENT: Moist mucous membranes. - LUNGS: Distant breath sound bilateral, coarse breath sound bilaterally, no wheezing - CARDIOVASCULAR: Regular rate and rhythm. No murmur. No JVD. - ABDOMEN: Soft, non-tender and non-distended. No palpable masses. - EXTREMITIES: No edema. Peripheral pulses 2+. Non-tender. - NEUROLOGIC: No focal neurological deficits. CN II-XII grossly intact. General weakness - PSYCHIATRIC: Awake, Alert and oriented x 3. Appropriate mood and affect. - SKIN: No rashes or lesions. Warm. - LYMPH: No cervical lymphadenopathy. Objective Data Vital Signs Vital Signs: Vital Signs - 24 hr 10/20/24 10:00 10/20/24 10:10 10/20/24 10:10 Temperature Pulse Rate 99 95 Respiratory Rate 24 H Blood Pressure Pulse Oximetry 96 Oxygen Delivery Nasal Cannula Oxygen Flow Rate 2 Fraction of Inspired Oxygen 28 10/20/24 10:22 10/20/24 11:38 10/20/24 12:00 Temperature 97.9 F Pulse Rate 96 94 Respiratory Rate 22 H 20 Blood Pressure 132/74 Pulse Oximetry 98 98 Oxygen Delivery Nasal Cannula Oxygen Flow Rate 2 Fraction of Inspired Oxygen 02/16/25 12:00 10/20/24 14:00 10/20/24 15:49 Temperature Pulse Rate 97 86 Respiratory Rate Blood Pressure Pulse Oximetry 97 Oxygen Delivery Nasal Cannula Oxygen Flow Rate 2 Fraction of Inspired Oxygen 28 10/20/24 15:49 10/20/24 16:00 10/20/24 16:00 Temperature Pulse Rate 99 97 Respiratory Rate 20 Blood Pressure Pulse Oximetry 96 Oxygen Delivery Nasal Cannula Oxygen Flow Rate 2 Fraction of Inspired Oxygen 10/20/24 16:07 10/20/24 16:14 10/20/24 18:00 Temperature 97.9 F Pulse Rate 102 H 100 96 Respiratory Rate 20 20 Blood Pressure 136/72 Pulse Oximetry 99 Oxygen Delivery Oxygen Flow Rate Fraction of Inspired Oxygen 10/20/24 20:00 10/20/24 20:00 10/20/24 20:55 Temperature 98.5 F Pulse Rate 86 93 Respiratory Rate 20 Blood Pressure 146/68 H Pulse Oximetry 98 98 Oxygen Delivery Nasal Cannula Oxygen Flow Rate 2 Fraction of Inspired Oxygen 10/20/24 20:58 10/20/24 22:00 10/20/24 23:14 Temperature 97.6 F Pulse Rate 92 90 90 Respiratory Rate 20 Blood Pressure 157/62 H Pulse Oximetry 98 Oxygen Delivery Oxygen Flow Rate Fraction of Inspired Oxygen 10/21/24 00:00 10/21/24 00:00 10/21/24 02:00 Temperature Pulse Rate 85 86 Respiratory Rate Blood Pressure Pulse Oximetry 98 Oxygen Delivery Nasal Cannula Oxygen Flow Rate 2 Fraction of Inspired Oxygen 10/21/24 02:45 10/21/24 02:59 10/21/24 04:00 Temperature Pulse Rate 95 95 Respiratory Rate 16 16 Blood Pressure Pulse Oximetry 100 Oxygen Delivery Nasal Cannula Oxygen Flow Rate 2 Fraction of Inspired Oxygen 10/21/24 04:00 10/21/24 05:14 10/21/24 06:00 Temperature 98.1 F Pulse Rate 87 89 84 Respiratory Rate 20 Blood Pressure 148/69 H Pulse Oximetry 97 Oxygen Delivery Oxygen Flow Rate Fraction of Inspired Oxygen 10/21/24 07:43 10/21/24 07:43 10/21/24 08:25 Temperature 97.8 F Pulse Rate 89 89 89 Respiratory Rate 18 18 24 H Blood Pressure 140/68 Pulse Oximetry 98 99 Oxygen Delivery Nasal Cannula Oxygen Flow Rate 2 Fraction of Inspired Oxygen 10/21/24 08:51 Temperature Pulse Rate 100 Respiratory Rate Blood Pressure Pulse Oximetry Oxygen Delivery Oxygen Flow Rate Fraction of Inspired Oxygen Intake/Output Intake/Output: Intake & Output 10/18/24 10/19/24 10/20/24 10/21/24 23:59 23:59 23:59 23:59 Intake Total 5557 816 6719 620 Output Total 919 684 5697 800 Balance 980 -590 -1350 -180 Meds/Results Medications: Active Medications Generic Name Dose Route Start Last Admin Trade Name Freq PRN Reason Stop Dose Admin Acetaminophen 650 mg 10/12/24 20:30 10/19/24 08:29 Acetaminophen 325 Mg Tablet PO 650 mg Q4H PRN Administration Mild Pain (1-3) or Fever Al Hydrox/Mg Hydrox/Simethicone 30 ml 10/19/24 15:25 Mag Hydrox/Al Hydrox/Simeth 30 Ml Udc PO Q6H PRN Indigestion Alprazolam 0.25 mg 10/17/24 08:50 Alprazolam (*Crx) 0.25 Mg Tablet PO Q6H PRN Anxiety Dextrose 12.5 gm 10/12/24 20:30 Dextrose 50% 25 Gm/50 Ml Syringe IV PUSH PRN PRN Hypoglycemia Protocol Diltiazem HCl 120 mg 10/13/24 09:00 10/21/24 08:52 Diltiazem Hcl Cd 120 Mg Cap.24hr PO 120 mg DAILY ANIYA Administration Flecainide Acetate 100 mg 10/13/24 17:40 10/21/24 08:51 Flecainide Acetate 100 Mg Tablet PO 100 mg Q12HR ANIYA Administration Glucose 15 gm 10/12/24 20:30 Glucose Oral Gel 15 Gm Of Glucse In 37.5 Gm Tube PO PRN PRN Hypoglycemia Protocol Guaifenesin 1,200 mg 10/14/24 21:00 10/21/24 08:51 Guaifenesin 12 Hr 600 Mg Tabcr PO 1,200 mg Q12HR ANIYA Administration Hydralazine HCl 10 mg 10/17/24 08:50 Hydralazine Hcl 20 Mg/Ml Vial IV PUSH Q6H PRN Blood Pressure - High Dextrose 1,000 mls @ 100 mls/hr 10/12/24 20:30 Dextrose 5% 1,000 Ml IVPB PRN PRN Hypoglycemia Protocol Ipratropium [place] 0.5 mg 10/19/24 09:54 10/21/24 02:44 Ipratropium Br 0.02% Inh Soln 0.5 Mg/2.5 Ml Vial INHALATION 0.5 mg Q4HRT PRN Administration Shortness Of Breath Levalbuterol HCl 0.63 mg 10/19/24 09:54 10/21/24 02:44 Levalbuterol Neb 1.25 Mg/3 Ml INHALATION 0.63 mg Q4HRT PRN Administration Wheezing Magnesium Oxide 400 mg 10/15/24 09:00 10/21/24 08:51 Magnesium Oxide 400 Mg Tablet PO 400 mg DAILY ANIYA Administration Mirabegron 25 mg 10/13/24 09:00 10/19/24 08:29 Mirabegron 25 Mg Er Tablet PO 25 mg DAILY ANIYA Administration * Home Med * ( 2 each 10/19/24 12:35 10/21/24 07:44 [place]) Budesonide/ INHALATION 11/18/24 12:34 2 each Glycopyrrolate/ Q12HRT ANIYA Administration Formoterol Fumarate 160 Mcg-9 Mcg-4.8 Mcg Pantoprazole Sodium 40 mg 10/20/24 09:00 10/21/24 08:51 Pantoprazole 40 Mg Tablet PO 40 mg QAM ANIYA Administration Polyethylene Glycol 17 gm 10/16/24 18:15 10/21/24 08:52 Polyethylene Glycol 3350 17 Gm Powd.Pack PO Not Given QAM ANIYA Pravastatin Sodium 20 mg 10/12/24 23:40 10/20/24 20:59 Pravastatin Sodium 20 Mg Tablet PO 20 mg HS ANIYA Administration Rivaroxaban 15 mg 10/14/24 21:00 10/20/24 20:59 Rivaroxaban 15 Mg Tablet PO 15 mg 2100 ANIYA Administration Senna/Docusate Sodium 1 tab 10/16/24 18:25 10/21/24 08:51 Senna/Docusate Sodium Tablet PO 1 tab BID ANIYA Administration Simethicone 125 mg 10/19/24 21:31 10/21/24 08:50 Simethicone 125 Mg Chew Tab PO 125 mg QID PRN Administration gas, bloating Radiology Results: ITS Impressions Chest CT 10/12/24 19:30 IMPRESSION: Scattered small, likely infectious/inflammatory foci, overlying a background of severe emphysematous change and largely stable areas of parenchymal scarring. Mild esophagitis/gastritis. Hepatic steatosis. Venous Doppler Study 10/16/24 11:25 IMPRESSION: 1. No deep venous thrombosis. Chest X-Ray 10/20/24 07:05 IMPRESSION: Chronic interstitial change with mild pulmonary vascular congestion and a small right-sided pleural effusion.
--- NOTE | 2024-10-21 13:45 | PCOTNOTE ---
Attempted to see Patient at this time. Patient states she needs a breathing treatment and declines participating until she gets one. RN notified and aware. Will check back at a later time.
--- NOTE | 2024-10-21 13:55 | PM.PNPUL ---
Progress Note: A&P Assessment and Plan (1) COPD (chronic obstructive pulmonary disease): Code(s): J44.9 - Chronic obstructive pulmonary disease, unspecified Status: Acute Assessment and Plan: This 74-year-old female with a history of advanced COPD hypoxemic respiratory failure presented with shortness of breath of few days duration. The patient was diagnosed with RSV and COPD exacerbation for which she has received treatment with BiPAP support IV steroids antibiotics and short-acting bronchodilators. He respiratory status has significantly improved. She no longer uses BiPAP support at night. She has a indwelling bladder catheter for urinary retention in there is a question whether the urinary retention was related muscarinic agent in her inhaler. Plan: Continue with same treatment, out of bed to chair. Anticipate DC home over the next couple of days. (2) COPD exacerbation: Code(s): J44.1 - Chronic obstructive pulmonary disease with (acute) exacerbation Status: Acute (3) Hypoxia: Code(s): R09.02 - Hypoxemia Status: Acute (4) Tobacco abuse: Code(s): Z72.0 - Tobacco use Status: Acute (5) Acute on chronic respiratory failure with hypoxia and hypercapnia: Code(s): J96.21 - Acute and chronic respiratory failure with hypoxia; J96.22 - Acute and chronic respiratory failure with hypercapnia Status: Acute Subjective Date/time seen: 10/21/24 13:55 Interval history: This 74-year-old female with known history of COPD and chronic hypoxemia on supplemental oxygen at home presented with few day history of increasing shortness of breath. She was diagnosed with COPD exacerbation related to RSV infection. The patient has been treated with antibiotics nebulized bronchodilators IV steroids and also a BiPAP support. Currently she is doing much better. She has not used BiPAP support last night. She had some urinary retention recently and urinary catheter was placed. Upon questioning she stated that her breathing is significantly improved. She has some cough with clear sputum production but no wheezing. Review of Systems Review of Systems: All systems reviewed & are unremarkable except as noted in HPI and below (HPI and below) Exam Narrative: GENERAL APPEARANCE: Well developed, well nourished, alert and cooperative, and appears to be in a mild respiratory distress while on supplemental oxygen SKIN: Inspection of the skin reveals no rashes, ulcerations or petechiae. HEENT: Sclerae anicteric and conjunctivae pink and moist. Extraocular movements were intact and pupils were equal, round, NECK: Supple. There was no thyroid enlargement, and no tenderness, or masses were felt. CHEST: Normal AP diameter and normal contour without any kyphoscoliosis. LUNGS: Distant breath sounds bilaterally, no wheezing hyperinflated lungs CARDIAC: There was an irregular rate and rhythm without any murmurs, gallops, rubs. ABDOMEN: Soft and nontender with normal bowel sounds. There was no organomegaly. LYMPH NODES: No lymphadenopathy was appreciated in the neck. EXTREMITIES: No cyanosis, clubbing or edema. NEUROLOGIC: Alert and oriented x 3. Normal affect. Objective Data Vital Signs Vital Signs: Vital Signs - 24 hr 10/20/24 14:00 10/20/24 15:49 10/20/24 15:49 Temperature Pulse Rate 86 99 Respiratory Rate 20 Blood Pressure Pulse Oximetry 97 Oxygen Delivery Nasal Cannula Oxygen Flow Rate 2 Fraction of Inspired Oxygen 28 10/20/24 16:00 10/20/24 16:00 10/20/24 16:07 Temperature Pulse Rate 97 102 H Respiratory Rate 20 Blood Pressure Pulse Oximetry 96 Oxygen Delivery Nasal Cannula Oxygen Flow Rate 2 Fraction of Inspired Oxygen 10/20/24 16:14 10/20/24 18:00 10/20/24 20:00 Temperature 36.6 C Pulse Rate 100 96 Respiratory Rate 20 Blood Pressure 136/72 Pulse Oximetry 99 98 Oxygen Delivery Nasal Cannula Oxygen Flow Rate 2 Fraction of Inspired Oxygen 10/20/24 20:00 10/20/24 20:55 10/20/24 20:58 Temperature 36.9 C Pulse Rate 86 93 92 Respiratory Rate 20 Blood Pressure 146/68 H Pulse Oximetry 98 Oxygen Delivery Oxygen Flow Rate Fraction of Inspired Oxygen 10/20/24 22:00 10/20/24 23:14 10/21/24 00:00 Temperature 36.4 C Pulse Rate 90 90 Respiratory Rate 20 Blood Pressure 157/62 H Pulse Oximetry 98 98 Oxygen Delivery Nasal Cannula Oxygen Flow Rate 2 Fraction of Inspired Oxygen 10/21/24 00:00 10/21/24 02:00 10/21/24 02:45 Temperature Pulse Rate 85 86 95 Respiratory Rate 16 Blood Pressure Pulse Oximetry Oxygen Delivery Oxygen Flow Rate Fraction of Inspired Oxygen 10/21/24 02:59 10/21/24 04:00 10/21/24 04:00 Temperature Pulse Rate 95 87 Respiratory Rate 16 Blood Pressure Pulse Oximetry 100 Oxygen Delivery Nasal Cannula Oxygen Flow Rate 2 Fraction of Inspired Oxygen 10/21/24 05:14 10/21/24 06:00 10/21/24 07:43 Temperature 36.7 C Pulse Rate 89 84 89 Respiratory Rate 20 18 Blood Pressure 148/69 H Pulse Oximetry 97 98 Oxygen Delivery Nasal Cannula Oxygen Flow Rate 2 Fraction of Inspired Oxygen 10/21/24 07:43 10/21/24 08:00 10/21/24 08:00 Temperature Pulse Rate 89 97 Respiratory Rate 18 Blood Pressure Pulse Oximetry 98 Oxygen Delivery Nasal Cannula Oxygen Flow Rate 2 Fraction of Inspired Oxygen 10/21/24 08:25 10/21/24 08:51 10/21/24 11:55 Temperature 36.6 C 36.4 C Pulse Rate 89 100 94 Respiratory Rate 24 H 20 Blood Pressure 140/68 148/73 H Pulse Oximetry 99 95 Oxygen Delivery Oxygen Flow Rate Fraction of Inspired Oxygen Intake/Output Intake/Output: Intake & Output 10/18/24 10/19/24 10/20/24 10/21/24 23:59 23:59 23:59 23:59 Intake Total 1605 233 7198 860 Output Total 708 667 7877 800 Balance 027 -590 -7680 60 Meds/Results Medications: Active Medications Generic Name Dose Route Start Last Admin Trade Name Freq PRN Reason Stop Dose Admin Acetaminophen 650 mg 10/12/24 20:30 10/19/24 08:29 Acetaminophen 325 Mg Tablet PO 650 mg Q4H PRN Administration Mild Pain (1-3) or Fever Al Hydrox/Mg Hydrox/Simethicone 30 ml 10/19/24 15:25 Mag Hydrox/Al Hydrox/Simeth 30 Ml Udc PO Q6H PRN Indigestion Alprazolam 0.25 mg 10/17/24 08:50 Alprazolam (*Crx) 0.25 Mg Tablet PO Q6H PRN Anxiety Dextrose 12.5 gm 10/12/24 20:30 Dextrose 50% 25 Gm/50 Ml Syringe IV PUSH PRN PRN Hypoglycemia Protocol Diltiazem HCl 120 mg 10/13/24 09:00 10/21/24 08:52 Diltiazem Hcl Cd 120 Mg Cap.24hr PO 120 mg DAILY ANIYA Administration Flecainide Acetate 100 mg 10/13/24 17:40 10/21/24 08:51 Flecainide Acetate 100 Mg Tablet PO 100 mg Q12HR ANIYA Administration Glucose 15 gm 10/12/24 20:30 Glucose Oral Gel 15 Gm Of Glucse In 37.5 Gm Tube PO PRN PRN Hypoglycemia Protocol Guaifenesin 1,200 mg 10/14/24 21:00 10/21/24 08:51 Guaifenesin 12 Hr 600 Mg Tabcr PO 1,200 mg Q12HR ANIYA Administration Hydralazine HCl 10 mg 10/17/24 08:50 Hydralazine Hcl 20 Mg/Ml Vial IV PUSH Q6H PRN Blood Pressure - High Dextrose 1,000 mls @ 100 mls/hr 10/12/24 20:30 Dextrose 5% 1,000 Ml IVPB PRN PRN Hypoglycemia Protocol Ipratropium [place] 0.5 mg 10/19/24 09:54 10/21/24 02:44 Ipratropium Br 0.02% Inh Soln 0.5 Mg/2.5 Ml Vial INHALATION 0.5 mg Q4HRT PRN Administration Shortness Of Breath Levalbuterol HCl 0.63 mg 10/19/24 09:54 10/21/24 02:44 Levalbuterol Neb 1.25 Mg/3 Ml INHALATION 0.63 mg Q4HRT PRN Administration Wheezing Magnesium Oxide 400 mg 10/15/24 09:00 10/21/24 08:51 Magnesium Oxide 400 Mg Tablet PO 400 mg DAILY ANIYA Administration Mirabegron 25 mg 10/13/24 09:00 10/19/24 08:29 Mirabegron 25 Mg Er Tablet PO 25 mg DAILY ANIYA Administration * Home Med * ( 2 each 10/19/24 12:35 10/21/24 07:44 [place]) Budesonide/ INHALATION 11/18/24 12:34 2 each Glycopyrrolate/ Q12HRT ANIYA Administration Formoterol Fumarate 160 Mcg-9 Mcg-4.8 Mcg Pantoprazole Sodium 40 mg 10/20/24 09:00 10/21/24 08:51 Pantoprazole 40 Mg Tablet PO 40 mg QAM ANIYA Administration Polyethylene Glycol 17 gm 10/16/24 18:15 10/21/24 08:52 Polyethylene Glycol 3350 17 Gm Powd.Pack PO Not Given QAM ANIYA Pravastatin Sodium 20 mg 10/12/24 23:40 10/20/24 20:59 Pravastatin Sodium 20 Mg Tablet PO 20 mg HS ANIYA Administration Rivaroxaban 15 mg 10/14/24 21:00 10/20/24 20:59 Rivaroxaban 15 Mg Tablet PO 15 mg 2100 ANIYA Administration Senna/Docusate Sodium 1 tab 10/16/24 18:25 10/21/24 08:51 Senna/Docusate Sodium Tablet PO 1 tab BID ANIYA Administration Simethicone 125 mg 10/19/24 21:31 10/21/24 13:20 Simethicone 125 Mg Chew Tab PO 125 mg QID PRN Administration gas, bloating Radiology Results: ITS Impressions Chest CT 10/12/24 19:30 IMPRESSION: Scattered small, likely infectious/inflammatory foci, overlying a background of severe emphysematous change and largely stable areas of parenchymal scarring. Mild esophagitis/gastritis. Hepatic steatosis. Venous Doppler Study 10/16/24 11:25 IMPRESSION: 1. No deep venous thrombosis. Chest X-Ray 10/20/24 07:05 IMPRESSION: Chronic interstitial change with mild pulmonary vascular congestion and a small right-sided pleural effusion.
--- NOTE | 2024-10-21 13:55 | PCPTNOTE ---
Attempted to see patient for PT, however patient declined. Patient reported she wanted a breathing treatment before working with therapy. RN aware and called respiratory.
--- NOTE | 2024-10-21 15:28 | PCOTNOTE ---
Attempted again this P.M. Patient stated she did receive her breathing treatment but just now is feeling relaxed and her breathing is better. Patient refuses any activity so that it doesnt start back up again, refused any activity.
[2024-10-21] MEDS: PRAVASTATIN SODIUM 20 MG TABLET PO (20:08)
[2024-10-21] MEDS: RIVAROXABAN 15 MG TABLET PO (20:08)
[2024-10-22] VITALS (27 sets, daily range): BP systolic 125–159; BP diastolic 58–77; PULSE 72–109; RESP 20; TEMP 36.3–37; O2SAT 87–98
[2024-10-22 05:44] LABS: Add Urine Microscopic? YES; Appearance Urine Cloudy (Clear); Bacteria Urine None Seen /hpf; Bilirubin Urine Negative (Negative); Blood Urine 3+ (Negative); Color Urine Yellow (Yellow); Glucose Urine UA Negative (Negative); Ketones Urine Negative (Negative); Leukocyte Esterase Ur 1+ LEU/UL (Negative); Nitrate Urine Negative (Negative); Protein Urine Negative (Negative); RBC Urine >100 /hpf (0-2); Specific Grav Ur 1.008 (1.001-1.035); Squamous Epithelial Cell Urine Occasional /hpf (Few); Urobilinogen Urine 0.2 mg/dL (<2.0); pH Urine 7.5 (5.0-9.0)
[2024-10-22] MEDS: guaiFENesin 12 HR 600 MG TABCR 1200 MG PO ×2 (08:27→21:51)
[2024-10-22] MEDS: dilTIAZem HCL CD 120 MG CAP.24HR PO (08:28)
[2024-10-22] MEDS: MAGNESIUM OXIDE 400 MG TABLET PO (08:29)
[2024-10-22] MEDS: FLECAINIDE ACETATE 100 MG TABLET PO ×2 (08:29→21:51)
[2024-10-22] MEDS: PANTOPRAZOLE 40 MG TABLET PO (08:30)
--- NOTE | 2024-10-22 08:36 | PM.IMPN ---
Progress Note: A&P Assessment and Plan (1) Lactic acidosis: Code(s): E87.20 - Acidosis, unspecified Status: Acute (2) Sepsis: Code(s): A41.9 - Sepsis, unspecified organism Status: Acute (3) Acute on chronic respiratory failure with hypoxia and hypercapnia: Code(s): J96.21 - Acute and chronic respiratory failure with hypoxia; J96.22 - Acute and chronic respiratory failure with hypercapnia Status: Acute (4) Respiratory syncytial virus (RSV): Qualifiers: RSV infection type: unspecified Qualified Code(s): B33.8 - Other specified viral diseases Code(s): B33.8 - Other specified viral diseases Status: Acute Plan This is a 74-year-old female with a past medical history prior tobacco abuse, COPD and chronic respiratory failure on 3 L nasal cannula continuously, atrial fibrillation on Xarelto, hypertension, hypercholesterolemia, polycythemia secondary to hypoxia, pulmonary nodule. She is accompanied by her who she lives with and her daughter. The patient quit smoking 2 years prior and has not been hospitalized since then either. She has been in her normal state of health and does not frequently use her inhalers or nebulizers. In the past 2 days she has used them multiple times due to shortness of breath and a cough productive of green/whitfield sputum. She denies chest pain. On 10/11/2024 the patient presents to [facility] due to severe difficulty breathing. ER nurse practitioner note patient was tripoding on arrival. Tachypnea with respiratory rate 24-27. Vitals otherwise stable. WBC 14.4, hemoglobin 15.4, . Acute on chronic respiratory failure with hypoxia and hypercapnia Patient has chronic respiratory failure Upon arrival in the ED, patient has worsening O2 desaturation, ABG demonstrated hypercapnic, hypoxemic respiratory failure patient has been on BiPAP since arrival Repeat ABG showed improvement symptoms retention Continue current managements off BIPAP 10/20 COPD exacerbation RSV infection. Suspected bacterial pneumonia received vancomycin ceftriaxone and azithromycin, Solu-Medrol 125 mg IV push x1, 2 L normal saline bolus, Patient is on DuoNeb scheduled, albuterol nebulizer. Received Methylprednisolone completed treatment on October 15 Finish antibiotic treatment 10/16 Appreciate pulmonary consultation, follow recommendations Urine retention Likely secondary to side effect of of medication Lee catheter was placed Urinalysis was done yesterday, showed cloudy urine, hematuria and white blood cells, suspecting trauma from Lee catheter Urine culture pending On tamsulosin s/w ceftriaxone 1 g IV daily, waiting for urine culture. If negative, stop ceftriaxone Acute renal failure due to Dehydration and sepsis BUN 25, serum creatinine 1.28, baseline creatinine 0.7 Received fluid resuscitation Kidney function improving Discontinue normal saline 75 mL/hour Severe sepsis without shock lactic acidosis with end-organ damage, acute hypoxic respiratory failure and acute kidney injury Resolved Paroxysmal atrial fibrillation on Xarelto, Cardizem 120 mg daily p.o. And flecainide 100 mg b.i.d. p.o. Follow-up echocardiogram 1. Complete two-dimensional, color flow and Doppler transthoracic echocardiogram is performed. 2. There is normal biventricular size and systolic function. 3. There is no significant valvular disease. 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 Patient wishes to be full code. Home medications will be restarted as appropriate if indicated. Subjective Date/time seen: 10/22/24 08:36 Interval history: I saw examined patient today. Patient feels better today, appetite continue to improve. . Patient t is off BiPAP overnight. Patient has no significant dyspnea at rest, also denies chest pain abdomen pain nausea vomiting diarrhea. Patient afebrile, blood pressure stable. Exam Narrative: GENERAL: Ill-appearing in no acute distress. Moderate malnutrition - EYES: EOMI. Anicteric. - HENT: Moist mucous membranes. - LUNGS: Distant breath sound bilateral, coarse breath sound bilaterally, no wheezing - CARDIOVASCULAR: Regular rate and rhythm. No murmur. No JVD. - ABDOMEN: Soft, non-tender and non-distended. No palpable masses. - EXTREMITIES: No edema. Peripheral pulses 2+. Non-tender. - NEUROLOGIC: No focal neurological deficits. CN II-XII grossly intact. General weakness - PSYCHIATRIC: Awake, Alert and oriented x 3. Appropriate mood and affect. - SKIN: No rashes or lesions. Warm. - LYMPH: No cervical lymphadenopathy. Objective Data Vital Signs Vital Signs: Vital Signs - 24 hr 10/21/24 08:51 10/21/24 10:00 10/21/24 11:55 Temperature 97.6 F Pulse Rate 100 82 94 Respiratory Rate 20 Blood Pressure 148/73 H Pulse Oximetry 95 Oxygen Delivery Oxygen Flow Rate 10/21/24 12:00 10/21/24 12:00 10/21/24 14:00 Temperature Pulse Rate 95 99 Respiratory Rate Blood Pressure Pulse Oximetry 95 Oxygen Delivery Nasal Cannula Oxygen Flow Rate 2 10/21/24 14:25 10/21/24 14:38 10/21/24 16:00 Temperature Pulse Rate 104 H 102 H Respiratory Rate 20 20 Blood Pressure Pulse Oximetry 95 Oxygen Delivery Nasal Cannula Oxygen Flow Rate 2 10/21/24 16:00 10/21/24 16:25 10/21/24 18:00 Temperature 96.7 F L Pulse Rate 98 97 96 Respiratory Rate 22 H Blood Pressure 149/66 H Pulse Oximetry 96 Oxygen Delivery Oxygen Flow Rate 10/21/24 20:00 10/21/24 20:00 10/21/24 20:08 Temperature Pulse Rate 95 94 Respiratory Rate Blood Pressure Pulse Oximetry 97 Oxygen Delivery Nasal Cannula Oxygen Flow Rate 2 10/21/24 20:15 10/21/24 21:22 10/21/24 22:00 Temperature 97.6 F Pulse Rate 97 91 89 Respiratory Rate 20 Blood Pressure 136/65 Pulse Oximetry 97 97 Oxygen Delivery Nasal Cannula Oxygen Flow Rate 2 10/22/24 00:00 10/22/24 00:00 10/22/24 00:06 Temperature 98.4 F Pulse Rate 87 89 Respiratory Rate 20 Blood Pressure 147/65 H Pulse Oximetry 94 94 Oxygen Delivery Nasal Cannula Oxygen Flow Rate 2 10/22/24 02:00 10/22/24 04:00 10/22/24 04:00 Temperature Pulse Rate 86 86 Respiratory Rate Blood Pressure Pulse Oximetry 98 Oxygen Delivery Nasal Cannula Oxygen Flow Rate 2 10/22/24 04:23 10/22/24 06:00 10/22/24 07:51 Temperature 98.6 F 98.0 F Pulse Rate 82 84 85 Respiratory Rate 20 20 Blood Pressure 140/67 125/58 L Pulse Oximetry 98 94 Oxygen Delivery Oxygen Flow Rate 10/22/24 08:29 Temperature Pulse Rate 90 Respiratory Rate Blood Pressure Pulse Oximetry Oxygen Delivery Oxygen Flow Rate Intake/Output Intake/Output: Intake & Output 10/19/24 10/20/24 10/21/24 10/22/24 23:59 23:59 23:59 23:59 Intake Total 360 1650 2100 400 Output Total 950 3000 2700 900 Balance -590 -1350 -600 -500 Meds/Results Medications: Active Medications Generic Name Dose Route Start Last Admin Trade Name Freq PRN Reason Stop Dose Admin Acetaminophen 650 mg 10/12/24 20:30 10/19/24 08:29 Acetaminophen 325 Mg Tablet PO 650 mg Q4H PRN Administration Mild Pain (1-3) or Fever Al Hydrox/Mg Hydrox/Simethicone 30 ml 10/19/24 15:25 Mag Hydrox/Al Hydrox/Simeth 30 Ml Udc PO Q6H PRN Indigestion Alprazolam 0.25 mg 10/17/24 08:50 Alprazolam (*Crx) 0.25 Mg Tablet PO Q6H PRN Anxiety Dextrose 12.5 gm 10/12/24 20:30 Dextrose 50% 25 Gm/50 Ml Syringe IV PUSH PRN PRN Hypoglycemia Protocol Diltiazem HCl 120 mg 10/13/24 09:00 10/22/24 08:28 Diltiazem Hcl Cd 120 Mg Cap.24hr PO 120 mg DAILY ANIYA Administration Flecainide Acetate 100 mg 10/13/24 17:40 10/22/24 08:29 Flecainide Acetate 100 Mg Tablet PO 100 mg Q12HR ANIYA Administration Glucose 15 gm 10/12/24 20:30 Glucose Oral Gel 15 Gm Of Glucse In 37.5 Gm Tube PO PRN PRN Hypoglycemia Protocol Guaifenesin 1,200 mg 10/14/24 21:00 10/22/24 08:27 Guaifenesin 12 Hr 600 Mg Tabcr PO 1,200 mg Q12HR ANIYA Administration Hydralazine HCl 10 mg 10/17/24 08:50 Hydralazine Hcl 20 Mg/Ml Vial IV PUSH Q6H PRN Blood Pressure - High Dextrose 1,000 mls @ 100 mls/hr 10/12/24 20:30 Dextrose 5% 1,000 Ml IVPB PRN PRN Hypoglycemia Protocol Ipratropium Guy 0.5 mg 10/19/24 09:54 10/21/24 14:25 Ipratropium Br 0.02% Inh Soln 0.5 Mg/2.5 Ml Vial INHALATION 0.5 mg Q4HRT PRN Administration Shortness Of Breath Levalbuterol HCl 0.63 mg 10/19/24 09:54 10/21/24 14:25 Levalbuterol Neb 1.25 Mg/3 Ml INHALATION 0.63 mg Q4HRT PRN Administration Wheezing Magnesium Oxide 400 mg 10/15/24 09:00 10/22/24 08:29 Magnesium Oxide 400 Mg Tablet PO 400 mg DAILY ANIYA Administration Mirabegron 25 mg 10/13/24 09:00 10/19/24 08:29 Mirabegron 25 Mg Er Tablet PO 25 mg DAILY ANIYA Administration * Home Med * ( 2 each 10/19/24 12:35 10/21/24 21:18 [place]) Budesonide/ INHALATION 11/18/24 12:34 2 each Glycopyrrolate/ Q12HRT ANIYA Administration Formoterol Fumarate 160 Mcg-9 Mcg-4.8 Mcg Pantoprazole Sodium 40 mg 10/20/24 09:00 10/22/24 08:30 Pantoprazole 40 Mg Tablet PO 40 mg QAM ANIYA Administration Polyethylene Glycol 17 gm 10/16/24 18:15 10/22/24 08:30 Polyethylene Glycol 3350 17 Gm Powd.Pack PO Not Given QAM ANIYA Pravastatin Sodium 20 mg 10/12/24 23:40 10/21/24 20:08 Pravastatin Sodium 20 Mg Tablet PO 20 mg HS ANIYA Administration Rivaroxaban 15 mg 10/14/24 21:00 10/21/24 20:08 Rivaroxaban 15 Mg Tablet PO 15 mg 2100 ANIYA Administration Senna/Docusate Sodium 1 tab 10/16/24 18:25 10/22/24 08:32 Senna/Docusate Sodium Tablet PO Not Given BID ANIYA Simethicone 125 mg 10/19/24 21:31 10/21/24 16:17 Simethicone 125 Mg Chew Tab PO 125 mg QID PRN Administration gas, bloating Radiology Results: ITS Impressions Chest CT 10/12/24 19:30 IMPRESSION: Scattered small, likely infectious/inflammatory foci, overlying a background of severe emphysematous change and largely stable areas of parenchymal scarring. Mild esophagitis/gastritis. Hepatic steatosis. Venous Doppler Study 10/16/24 11:25 IMPRESSION: 1. No deep venous thrombosis. Chest X-Ray 10/20/24 07:05 IMPRESSION: Chronic interstitial change with mild pulmonary vascular congestion and a small right-sided pleural effusion. Labs Labs: Laboratory Results - last 24 hr 10/22/24 05:24 Urine Color Yellow Urine Appearance Cloudy H Urine pH 7.5 Ur Specific [place] 1.008 Urine Protein Negative Urine Glucose (UA) Negative Urine Ketones Negative Ur Blood (Man) 3+ H Urine Nitrate Negative Urine Bilirubin Negative Urine Urobilinogen 0.2 Leukocyte Esterase Rfl 1+ H Urine RBC >100 H Urine WBC 11-20 H Ur Squamous Epith Cells Occasional Urine Bacteria None seen Urine Casts 3-5
[2024-10-22] MEDS: LEVALBUTEROL NEB 1.25 MG/3 ML 0.63 MG INHALATION ×3 (08:58→20:14)
[2024-10-22 09:14] LABS: Hematocrit 37.8 % (37.0-47.0); Hemoglobin 11.9 g/dL (12.0-15.0); Mean Corpuscular HGB Conc 31.5 g/dl (32-36); Mean Corpuscular Hemoglobin 30.9 pg (26-34); Mean Corpuscular Volume 98.2 fl (80-100); Mean Platelet Volume 10.1 fl (7.4-10.4); Platelet Count Result 251 k/mm3 (150-375); Red Blood Count 3.85 M/mm3 (4.2-5.4); Red Cell Distribution Width 13.2 % (11.5-14.5); White Blood Count 11.7 K/mm3 (4.5-10.0)
[2024-10-22 09:33] LABS: Anion Gap 4 mmol/L (4-12); Blood Urea Nitrogen 9 mg/dL (7-17); Calcium 9.2 mg/dL (8.4-10.2); Carbon Dioxide 36 mmol/L (22-30); Chloride 100 mmol/L (98-107); Estimated CRCL calculation 34 ml/min; Estimated Glomerular Filt Rate > 60; Glucose 96 mg/dL (65-110); Potassium 3.2 mmol/L (3.4-5.0); Sodium 140 mmol/L (137-145)
[2024-10-22] MEDS: TAMSULOSIN HCL 0.4 MG CAPSULE PO (09:36)
[2024-10-22] MEDS: SIMETHICONE 125 MG CHEW TAB PO ×3 (09:38→21:51)
--- NOTE | 2024-10-22 10:46 | PC.NURSE ---
On 10/22/24, the student, [Livia Mckinney], provided care and completed [facility] documentation on this patient. I have reviewed the student's documentation and agree with the findings.
[2024-10-22] MEDS: FORMOTEROL FUMARATE INHALATION ×2 (11:08→21:33)
[2024-10-22] MEDS: GLYCOPYRROLATE INHALATION ×2 (11:08→21:33)
[2024-10-22] MEDS: BUDESONIDE INHALATION ×2 (11:08→21:33)
[2024-10-22] MEDS: [UNRECOGNIZED DRUG - OTHER] INHALATION ×2 (11:08→21:33)
--- NOTE | 2024-10-22 12:00 | P.CONUR_ITS ---
Assessment and Plan Assessment and plan (1) Urinary retention: Code(s): R33.9 - Retention of urine, unspecified Status: Acute Assessment and Plan: Patient undergoing a voiding trial this morning. If unable to void or residual greater than 300 cc may need to have Lee replaced or learn intermittent catheterization. She would then require outpatient urodynamics and cystoscopy. Urology Consult Note HPI Date Seen: 10/22/24 Time Seen: 12:00 Requesting Physician: Bruna Hathaway MD Primary Care Provider: Eulalia Julio, Consult Narrative Reason for consult: Urinary retention Narrative: Sofi Zeng is a 74 year old female admitted with multiple medical issues but an exacerbation of her COPD. Patient has had difficulty voiding while hospitalized. She has required indwelling Lee's. Initially on admission she voided 400 cc with a 1000 cc residual. At the time my evaluation the Lee had been removed. He did only been 2 hours and she has not voided. She was on Mybetriq on admission and that has been stopped. Patient has seen Dr. Eli in the past but switched over to [place] due to insurance coverage. Nonetheless at the present time she states that she had nocturia times 2-3 and frequency every 3-4 hours prior to admission. Denies any dysuria. Review of Systems 2 Review of Systems: All systems reviewed & are unremarkable except as noted in HPI and below PMFSH Past Medical History Medical History Pulmonary nodule 7 mm left lower lobe nodule increased in size compared to prior exam 2016 with recommended follow-up CT scan in March-April Patient stated she had a PET scan which was negative. 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 Severely reduced diffusion capacity Hypercholesterolemia Hypertension Surgical History Surgical History History of extraction of renal calculus History of 2 sections H/O cystoscopy Family History Family History Father Acute myocardial infarction Hypertension Mother Chronic obstructive pulmonary disease Diabetes mellitus Sibling Pulmonary hypertension Chronic obstructive pulmonary disease Hypertension Social History Social History Social History: She reports that her daughter and 2 grand children recently moved in with her. 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 She denies any significant alcohol use or illicit substance use. Code status: Full code Surrogate decision maker: Diana (daughter) Smoking packs per day: 1 Smoking cigarettes per day: 20.0 Years smoked: 50 Smoking pack-years: 50.00 Smoking status: Former smoker Tobacco type: cigarettes Second hand tobacco smoke exposure: Yes Smoking end date: 08/29/22 Alcohol intake: never Substance use: never Substance use type: does not use Do You Feel Safe in your Home?: Yes Lack of Transportation: No Lack of Food: Never True Current Housing: I Have Housing Concerned About Future Housing: No Difficulty Paying Gas/Electric Bills: No Difficulty Paying for Meds: No Currently Unemployed: No Education: Trade/Vocational Certificate Difficulty w/ Childcare or Family Care: No Spiritual care concerns: No Meds Home Medications and Allergies Home Medications ?Medication ?Instructions ?Recorded ?Confirmed ?Type pravastatin 20 mg tablet 20 mg PO HS 01/16/22 10/12/24 History magnesium oxide 400 mg (241.3 mg 400 mg PO DAILY 06/08/22 10/12/24 History magnesium) tablet mirabegron 25 mg tablet,extended 25 mg PO DAILY 30 days #30 tabs 06/13/22 10/12/24 Rx release 24 hr (Myrbetriq) acetaminophen 500 mg tablet 500 mg PO TID PRN Pain 09/24/22 10/12/24 History diltiazem HCl 120 mg 120 mg PO DAILY 10/24/22 10/12/24 History capsule,extended release 24 hr flecainide 100 mg tablet 100 mg PO Q12HR #30 tabs 11/05/22 10/12/24 Rx rivaroxaban 15 mg tablet (Xarelto) 15 mg PO 1700 #30 tabs 11/05/22 10/12/24 Rx ELIDIA on 2L oxygen #1 ea 03/21/23 10/12/24 Rx levalbuterol HCl 1.25 mg/3 mL 1.25 mg (3 mL) inhalation Q4H #90 01/01/24 10/12/24 Rx solution for nebulization mL levalbuterol tartrate 45 See Rx Instructions .Route 05/28/24 10/12/24 Rx mcg/actuation aerosol inhaler .COMPLEX #15 grams azithromycin 250 mg tablet 500 mg (2 x 250 mg) PO 3XW #36 tabs 06/26/24 10/12/24 Rx budesonide 160 mcg-glycopyr 9 2 inh inhalation BID #10.7 grams 09/09/24 10/12/24 Rx mcg-formot 4.8 mcg/actuation HFA inhaler azithromycin 250 mg tablet See Rx Instructions PO .COMPLEX #6 10/08/24 10/12/24 Rx tabs budesonide 160 mcg-glycopyr 9 2 inh inhalation BID 10/12/24 10/12/24 History mcg-formot 4.8 mcg/actuation HFA inhaler (Breztri R + B Groupphere) Allergies Allergy/AdvReac Type Severity Reaction Status Date / Time morphine Allergy Unknown ITCHING Verified 10/12/24 17:51 gabapentin Allergy Other Verified 10/12/24 17:51 Vital Signs Vital Signs - 24 hr 10/21/24 14:00 10/21/24 14:25 10/21/24 14:38 Temperature Pulse Rate 99 104 H 102 H Respiratory Rate 20 20 Blood Pressure Pulse Oximetry Oxygen Delivery Oxygen Flow Rate 10/21/24 16:00 10/21/24 16:00 10/21/24 16:25 Temperature 35.9 C L Pulse Rate 98 97 Respiratory Rate 22 H Blood Pressure 149/66 H Pulse Oximetry 95 96 Oxygen Delivery Nasal Cannula Oxygen Flow Rate 2 10/21/24 18:00 10/21/24 20:00 10/21/24 20:00 Temperature Pulse Rate 96 95 Respiratory Rate Blood Pressure Pulse Oximetry 97 Oxygen Delivery Nasal Cannula Oxygen Flow Rate 2 10/21/24 20:08 10/21/24 20:15 10/21/24 21:22 Temperature 36.4 C Pulse Rate 94 97 91 Respiratory Rate 20 Blood Pressure 136/65 Pulse Oximetry 97 97 Oxygen Delivery Nasal Cannula Oxygen Flow Rate 2 10/21/24 22:00 10/22/24 00:00 10/22/24 00:00 Temperature Pulse Rate 89 87 Respiratory Rate Blood Pressure Pulse Oximetry 94 Oxygen Delivery Nasal Cannula Oxygen Flow Rate 2 10/22/24 00:06 10/22/24 02:00 10/22/24 04:00 Temperature 36.9 C Pulse Rate 89 86 86 Respiratory Rate 20 Blood Pressure 147/65 H Pulse Oximetry 94 Oxygen Delivery Oxygen Flow Rate 10/22/24 04:00 10/22/24 04:23 10/22/24 06:00 Temperature 37.0 C Pulse Rate 82 84 Respiratory Rate 20 Blood Pressure 140/67 Pulse Oximetry 98 98 Oxygen Delivery Nasal Cannula Oxygen Flow Rate 2 10/22/24 07:51 10/22/24 08:00 10/22/24 08:00 Temperature 36.7 C Pulse Rate 85 86 Respiratory Rate 20 Blood Pressure 125/58 L Pulse Oximetry 94 94 Oxygen Delivery Nasal Cannula Oxygen Flow Rate 2 10/22/24 08:29 10/22/24 09:02 10/22/24 09:02 Temperature Pulse Rate 90 87 Respiratory Rate 20 Blood Pressure Pulse Oximetry 97 Oxygen Delivery Oxygen Flow Rate 2 10/22/24 09:13 10/22/24 10:00 10/22/24 11:09 Temperature Pulse Rate 82 92 72 Respiratory Rate 20 20 Blood Pressure Pulse Oximetry Oxygen Delivery Oxygen Flow Rate 10/22/24 11:42 Temperature Pulse Rate 91 Respiratory Rate 20 Blood Pressure 159/77 H Pulse Oximetry 96 Oxygen Delivery Oxygen Flow Rate Exam 2 Const: General: cooperative and comfortable Resp: Effort & Inspection: normal respiratory effort Cardio: Rate: regular rate Results Labs 10/22/24 09:03 10/22/24 09:03 Labs: Short CBC 10/22/24 Range/Units 09:03 WBC 11.7 H (4.5-10.0) K/mm3 Hgb 11.9 L (12.0-15.0) g/dL Hct 37.8 (37.0-47.0) % Plt Count 251 (150-375) k/mm3 BMP 10/22/24 09:03 Sodium 140 Potassium 3.2 L Chloride 100 Carbon Dioxide 36 H BUN 9 D Creatinine 0.85 Glucose 96 Calcium 9.2 Urine 10/22/24 Range/Units 05:24 Urine Color Yellow (Yellow) Urine Appearance Cloudy H (Clear) Urine pH 7.5 (5.0-9.0) Ur Specific [place] 1.008 (1.001-1.035) Urine Protein Negative (Negative) mg/dL Urine Glucose (UA) Negative (Negative) mg/dL
--- NOTE | 2024-10-22 12:10 | PM.PNPUL ---
Progress Note: A&P Assessment and Plan (1) COPD (chronic obstructive pulmonary disease): Code(s): J44.9 - Chronic obstructive pulmonary disease, unspecified Status: Acute Assessment and Plan: This 74-year-old female with a history of advanced COPD hypoxemic respiratory failure presented with shortness of breath of few days duration. The patient was diagnosed with RSV and COPD exacerbation for which she has received treatment with BiPAP support IV steroids antibiotics and short-acting bronchodilators. He respiratory status has significantly improved. She no longer uses BiPAP support at night. She has a indwelling bladder catheter for urinary retention; there is a question whether the urinary retention was related muscarinic agent in her inhaler. Plan: From a respiratory standpoint, the patient is stable for discharge. She will continue with her maintenance bronchodilators, specifically the Breztri inhaler, two puffs twice daily, and the short-acting bronchodilators , levo albuterol nebulized or rescue as before. The Atrovent inhaler will not be continued. The patient should return to the pulmonary clinic for follow-up with her regular car top bolter in approximately 2-3 weeks. This case was discussed with the hospitalist. Please feel free to call with any questions. (2) COPD exacerbation: Code(s): J44.1 - Chronic obstructive pulmonary disease with (acute) exacerbation Status: Acute (3) Hypoxia: Code(s): R09.02 - Hypoxemia Status: Acute (4) Tobacco abuse: Code(s): Z72.0 - Tobacco use Status: Acute (5) Acute on chronic respiratory failure with hypoxia and hypercapnia: Code(s): J96.21 - Acute and chronic respiratory failure with hypoxia; J96.22 - Acute and chronic respiratory failure with hypercapnia Status: Acute Subjective Date/time seen: 10/22/24 12:10 Interval history: Patient has no new respiratory complaints. No longer using BiPAP support. Shortness of breath about baseline although she did have the nebulize short-acting bronchodilator this a.m. as yet. Eager to go home. She still has a indwelling bladder catheter Review of Systems Review of Systems: All systems reviewed & are unremarkable except as noted in HPI and below (HPI and below) Exam Narrative: GENERAL APPEARANCE: Well developed, well nourished, alert and cooperative, and appears to be in a mild respiratory distress while on supplemental oxygen SKIN: Inspection of the skin reveals no rashes, ulcerations or petechiae. HEENT: Sclerae anicteric and conjunctivae pink and moist. Extraocular movements were intact and pupils were equal, round, NECK: Supple. There was no thyroid enlargement, and no tenderness, or masses were felt. CHEST: Normal AP diameter and normal contour without any kyphoscoliosis. LUNGS: Distant breath sounds bilaterally, no wheezing hyperinflated lungs CARDIAC: There was an irregular rate and rhythm without any murmurs, gallops, rubs. ABDOMEN: Soft and nontender with normal bowel sounds. There was no organomegaly. LYMPH NODES: No lymphadenopathy was appreciated in the neck. EXTREMITIES: No cyanosis, clubbing or edema. NEUROLOGIC: Alert and oriented x 3. Normal affect. Objective Data Vital Signs Vital Signs: Vital Signs - 24 hr 10/21/24 14:00 10/21/24 14:25 10/21/24 14:38 Temperature Pulse Rate 99 104 H 102 H Respiratory Rate 20 20 Blood Pressure Pulse Oximetry Oxygen Delivery Oxygen Flow Rate 10/21/24 16:00 10/21/24 16:00 10/21/24 16:25 Temperature 35.9 C L Pulse Rate 98 97 Respiratory Rate 22 H Blood Pressure 149/66 H Pulse Oximetry 95 96 Oxygen Delivery Nasal Cannula Oxygen Flow Rate 2 10/21/24 18:00 10/21/24 20:00 10/21/24 20:00 Temperature Pulse Rate 96 95 Respiratory Rate Blood Pressure Pulse Oximetry 97 Oxygen Delivery Nasal Cannula Oxygen Flow Rate 2 10/21/24 20:08 10/21/24 20:15 10/21/24 21:22 Temperature 36.4 C Pulse Rate 94 97 91 Respiratory Rate 20 Blood Pressure 136/65 Pulse Oximetry 97 97 Oxygen Delivery Nasal Cannula Oxygen Flow Rate 2 10/21/24 22:00 10/22/24 00:00 10/22/24 00:00 Temperature Pulse Rate 89 87 Respiratory Rate Blood Pressure Pulse Oximetry 94 Oxygen Delivery Nasal Cannula Oxygen Flow Rate 2 10/22/24 00:06 10/22/24 02:00 10/22/24 04:00 Temperature 36.9 C Pulse Rate 89 86 86 Respiratory Rate 20 Blood Pressure 147/65 H Pulse Oximetry 94 Oxygen Delivery Oxygen Flow Rate 10/22/24 04:00 10/22/24 04:23 10/22/24 06:00 Temperature 37.0 C Pulse Rate 82 84 Respiratory Rate 20 Blood Pressure 140/67 Pulse Oximetry 98 98 Oxygen Delivery Nasal Cannula Oxygen Flow Rate 2 10/22/24 07:51 10/22/24 08:00 10/22/24 08:00 Temperature 36.7 C Pulse Rate 85 86 Respiratory Rate 20 Blood Pressure 125/58 L Pulse Oximetry 94 94 Oxygen Delivery Nasal Cannula Oxygen Flow Rate 2 10/22/24 08:29 10/22/24 09:02 10/22/24 09:02 Temperature Pulse Rate 90 87 Respiratory Rate 20 Blood Pressure Pulse Oximetry 97 Oxygen Delivery Oxygen Flow Rate 2 10/22/24 09:13 10/22/24 10:00 10/22/24 11:09 Temperature Pulse Rate 82 92 72 Respiratory Rate 20 20 Blood Pressure Pulse Oximetry Oxygen Delivery Oxygen Flow Rate 10/22/24 11:42 Temperature Pulse Rate 91 Respiratory Rate 20 Blood Pressure 159/77 H Pulse Oximetry 96 Oxygen Delivery Oxygen Flow Rate Intake/Output Intake/Output: Intake & Output 10/19/24 10/20/24 10/21/24 10/22/24 23:59 23:59 23:59 23:59 Intake Total 360 1650 2100 520 Output Total 950 3000 2700 1375 Balance -590 -1350 -600 -855 Meds/Results Medications: Active Medications Generic Name Dose Route Start Last Admin Trade Name Freq PRN Reason Stop Dose Admin Acetaminophen 650 mg 10/12/24 20:30 10/19/24 08:29 Acetaminophen 325 Mg Tablet PO 650 mg Q4H PRN Administration Mild Pain (1-3) or Fever Al Hydrox/Mg Hydrox/Simethicone 30 ml 10/19/24 15:25 Mag Hydrox/Al Hydrox/Simeth 30 Ml Udc PO Q6H PRN Indigestion Alprazolam 0.25 mg 10/17/24 08:50 Alprazolam (*Crx) 0.25 Mg Tablet PO Q6H PRN Anxiety Dextrose 12.5 gm 10/12/24 20:30 Dextrose 50% 25 Gm/50 Ml Syringe IV PUSH PRN PRN Hypoglycemia Protocol Diltiazem HCl 120 mg 10/13/24 09:00 10/22/24 08:28 Diltiazem Hcl Cd 120 Mg Cap.24hr PO 120 mg DAILY ANIYA Administration Flecainide Acetate 100 mg 10/13/24 17:40 10/22/24 08:29 Flecainide Acetate 100 Mg Tablet PO 100 mg Q12HR ANIYA Administration Glucose 15 gm 10/12/24 20:30 Glucose Oral Gel 15 Gm Of Glucse In 37.5 Gm Tube PO PRN PRN Hypoglycemia Protocol Guaifenesin 1,200 mg 10/14/24 21:00 10/22/24 08:27 Guaifenesin 12 Hr 600 Mg Tabcr PO 1,200 mg Q12HR ANIYA Administration Hydralazine HCl 10 mg 10/17/24 08:50 Hydralazine Hcl 20 Mg/Ml Vial IV PUSH Q6H PRN Blood Pressure - High Dextrose 1,000 mls @ 100 mls/hr 10/12/24 20:30 Dextrose 5% 1,000 Ml IVPB PRN PRN Hypoglycemia Protocol Ipratropium [place] 0.5 mg 10/19/24 09:54 10/21/24 14:25 Ipratropium Br 0.02% Inh Soln 0.5 Mg/2.5 Ml Vial INHALATION 0.5 mg Q4HRT PRN Administration Shortness Of Breath Levalbuterol HCl 0.63 mg 10/19/24 09:54 10/22/24 08:58 Levalbuterol Neb 1.25 Mg/3 Ml INHALATION 0.63 mg Q4HRT PRN Administration Wheezing Magnesium Oxide 400 mg 10/15/24 09:00 10/22/24 08:29 Magnesium Oxide 400 Mg Tablet PO 400 mg DAILY ANIYA Administration Mirabegron 25 mg 10/13/24 09:00 10/19/24 08:29 Mirabegron 25 Mg Er Tablet PO 25 mg DAILY ANIYA Administration * Home Med * ( 2 each 10/19/24 12:35 10/22/24 11:08 [place]) Budesonide/ INHALATION 11/18/24 12:34 2 each Glycopyrrolate/ Q12HRT ANIYA Administration Formoterol Fumarate 160 Mcg-9 Mcg-4.8 Mcg Pantoprazole Sodium 40 mg 10/20/24 09:00 10/22/24 08:30 Pantoprazole 40 Mg Tablet PO 40 mg QAM ANIYA Administration Polyethylene Glycol 17 gm 10/16/24 18:15 10/22/24 08:30 Polyethylene Glycol 3350 17 Gm Powd.Pack PO Not Given QAM ANIYA Pravastatin Sodium 20 mg 10/12/24 23:40 10/21/24 20:08 Pravastatin Sodium 20 Mg Tablet PO 20 mg HS ANIYA Administration Rivaroxaban 15 mg 10/14/24 21:00 10/21/24 20:08 Rivaroxaban 15 Mg Tablet PO 15 mg 2100 ANIYA Administration Senna/Docusate Sodium 1 tab 10/16/24 18:25 10/22/24 08:32 Senna/Docusate Sodium Tablet PO Not Given BID ANIYA Simethicone 125 mg 10/19/24 21:31 10/22/24 09:38 Simethicone 125 Mg Chew Tab PO 125 mg QID PRN Administration gas, bloating Tamsulosin HCl 0.4 mg 10/22/24 09:10 10/22/24 09:36 Tamsulosin Hcl 0.4 Mg Capsule PO 0.4 mg QAM ANIYA Administration Radiology Results: ITS Impressions Chest CT 10/12/24 19:30 IMPRESSION: Scattered small, likely infectious/inflammatory foci, overlying a background of severe emphysematous change and largely stable areas of parenchymal scarring. Mild esophagitis/gastritis. Hepatic steatosis. Venous Doppler Study 10/16/24 11:25 IMPRESSION: 1. No deep venous thrombosis. Chest X-Ray 10/20/24 07:05 IMPRESSION: Chronic interstitial change with mild pulmonary vascular congestion and a small right-sided pleural effusion. Labs Labs: Laboratory Results - last 24 hr 10/22/24 10/22/24 05:24 09:03 WBC 11.7 H RBC 3.85 L Hgb 11.9 L Hct 37.8 MCV 98.2 MCH 30.9 MCHC 31.5 L RDW 13.2 Plt Count 251 MPV 10.1 Sodium 140 Potassium 3.2 L Chloride 100 Carbon Dioxide 36 H Anion Gap 4 BUN 9 D Creatinine 0.85 Estim Creat Clear Calc 34 Estimated GFR > 60 Glucose 96 Calcium 9.2 Urine Color Yellow Urine Appearance Cloudy H Urine pH 7.5 Ur Specific [place] 1.008 Urine Protein Negative Urine Glucose (UA) Negative Urine Ketones Negative Ur Blood (Man) 3+ H Urine Nitrate Negative Urine Bilirubin Negative Urine Urobilinogen 0.2 Leukocyte Esterase Rfl 1+ H Urine RBC >100 H Urine WBC 11-20 H Ur Squamous Epith Cells Occasional Urine Bacteria None seen Urine Casts 3-5
--- NOTE | 2024-10-22 13:36 | PCRCNOTE ---
HOME O2 eval done. 1 liter at rest and 2 liters with activity, 3 liters at night. Pt has [facility] Resp [facility] for O2 needs at home, no addtl requirements. RN NOTIFIED
--- NOTE | 2024-10-22 17:15 | PM.IMPN ---
Progress Note: A&P Assessment and Plan (1) Lactic acidosis: Code(s): E87.20 - Acidosis, unspecified Status: Acute (2) Sepsis: Code(s): A41.9 - Sepsis, unspecified organism Status: Acute (3) Acute on chronic respiratory failure with hypoxia and hypercapnia: Code(s): J96.21 - Acute and chronic respiratory failure with hypoxia; J96.22 - Acute and chronic respiratory failure with hypercapnia Status: Acute (4) Respiratory syncytial virus (RSV): Qualifiers: RSV infection type: unspecified Qualified Code(s): B33.8 - Other specified viral diseases Code(s): B33.8 - Other specified viral diseases Status: Acute Plan This is a 74-year-old female with a past medical history prior tobacco abuse, COPD and chronic respiratory failure on 3 L nasal cannula continuously, atrial fibrillation on Xarelto, hypertension, hypercholesterolemia, polycythemia secondary to hypoxia, pulmonary nodule. She is accompanied by her who she lives with and her daughter. The patient quit smoking 2 years prior and has not been hospitalized since then either. She has been in her normal state of health and does not frequently use her inhalers or nebulizers. In the past 2 days she has used them multiple times due to shortness of breath and a cough productive of green/wh[place]field sputum. She denies chest pain. On 10/11/2024 the patient presents to [place] ER due to severe difficulty breathing. ER nurse practitioner note patient was tripoding on arrival. Tachypnea with respiratory rate 24-27. Vitals otherwise stable. WBC 14.4, hemoglobin 15.4, . Acute on chronic respiratory failure with hypoxia and hypercapnia Patient has chronic respiratory failure Upon arrival in the ED, patient has worsening O2 desaturation, ABG demonstrated hypercapnic, hypoxemic respiratory failure patient has been on BiPAP since arrival Repeat ABG showed improvement symptoms retention Continue current managements off BIPAP 10/20 COPD exacerbation RSV infection. Suspected bacterial pneumonia received vancomycin ceftriaxone and azithromycin, Solu-Medrol 125 mg IV push x1, 2 L normal saline bolus, Patient is on DuoNeb scheduled, albuterol nebulizer. Received Methylprednisolone completed treatment on October 15 Finish antibiotic treatment 10/16 Appreciate pulmonary consultation, follow recommendations Urine retention Likely secondary to side effect of of medication Lee catheter was placed Urinalysis was done yesterday, showed cloudy urine, hematuria and white blood cells, suspecting trauma from Lee catheter Urine culture pending On tamsulosin s/w ceftriaxone 1 g IV daily, waiting for urine culture. If negative, stop ceftriaxone Acute renal failure, resolved s/p IVF Cr 0.85 Severe sepsis without shock lactic acidosis with end-organ damage, acute hypoxic respiratory failure and acute kidney injury Resolved Paroxysmal atrial fibrillation on Xarelto, Cardizem 120 mg daily p.o. And flecainide 100 mg b.i.d. p.o. Follow-up echocardiogram 1. Complete two-dimensional, color flow and Doppler transthoracic echocardiogram is performed. 2. There is normal biventricular size and systolic function. 3. There is no significant valvular disease. Chronic hypertension Stable Constipation Start Senokot S 1 tablet b.i.d., MiraLax 1 packet daily Patient has bowel movements every day urinary retention failed voiding trial f/u urology, urology eval noted Restart [employer] Xarelto. Patient wishes to be full code. Home medications will be restarted as appropriate if indicated. Subjective Date/time seen: 10/22/24 17:15 Interval history: Comfortable at bedside and on room air failed voiding trial patient noted Review of Systems Review of Systems: All systems reviewed & are unremarkable except as noted in HPI and below (HPI) Exam Narrative: GENERAL: Ill-appearing in no acute distress. Moderate malnutrition - EYES: EOMI. Anicteric. - HENT: Moist mucous membranes. - LUNGS: Distant breath sound bilateral, coarse breath sound bilaterally, no wheezing - CARDIOVASCULAR: Regular rate and rhythm. No murmur. No JVD. - ABDOMEN: Soft, non-tender and non-distended. No palpable masses. - EXTREMITIES: No edema. Peripheral pulses 2+. Non-tender. - NEUROLOGIC: No focal neurological deficits. CN II-XII grossly intact. General weakness - PSYCHIATRIC: Awake, Alert and oriented x 3. Appropriate mood and affect. - SKIN: No rashes or lesions. Warm. - LYMPH: No cervical lymphadenopathy. Const: General: comfortable and no acute distress HENMT: Mouth: Yes dry mucous membranes Eyes: Pupils: Equal, round and reactive pupils present Neck: Neck: supple Resp: Other: Decreased breath sounds diffusely Cardio: Rate: regular rate Rhythm: regular rhythm Neuro: Cranial nerves: Yes Equal, round and reactive pupils present Extrem: General: no edema Objective Data Vital Signs Vital Signs: Vital Signs - 24 hr 10/21/24 18:00 10/21/24 20:00 10/21/24 20:00 Temperature Pulse Rate 96 95 Respiratory Rate Blood Pressure Pulse Oximetry 97 Oxygen Delivery Nasal Cannula Oxygen Flow Rate 2 10/21/24 20:08 10/21/24 20:15 10/21/24 21:22 Temperature 97.6 F Pulse Rate 94 97 91 Respiratory Rate 20 Blood Pressure 136/65 Pulse Oximetry 97 97 Oxygen Delivery Nasal Cannula Oxygen Flow Rate 2 10/21/24 22:00 10/22/24 00:00 10/22/24 00:00 Temperature Pulse Rate 89 87 Respiratory Rate Blood Pressure Pulse Oximetry 94 Oxygen Delivery Nasal Cannula Oxygen Flow Rate 2 10/22/24 00:06 10/22/24 02:00 10/22/24 04:00 Temperature 98.4 F Pulse Rate 89 86 86 Respiratory Rate 20 Blood Pressure 147/65 H Pulse Oximetry 94 Oxygen Delivery Oxygen Flow Rate 10/22/24 04:00 10/22/24 04:23 10/22/24 06:00 Temperature 98.6 F Pulse Rate 82 84 Respiratory Rate 20 Blood Pressure 140/67 Pulse Oximetry 98 98 Oxygen Delivery Nasal Cannula Oxygen Flow Rate 2 10/22/24 07:51 10/22/24 08:00 10/22/24 08:00 Temperature 98.0 F Pulse Rate 85 86 Respiratory Rate 20 Blood Pressure 125/58 L Pulse Oximetry 94 94 Oxygen Delivery Nasal Cannula Oxygen Flow Rate 2 10/22/24 08:29 10/22/24 09:02 10/22/24 09:02 Temperature Pulse Rate 90 87 Respiratory Rate 20 Blood Pressure Pulse Oximetry 97 Oxygen Delivery Oxygen Flow Rate 2 10/22/24 09:13 10/22/24 10:00 10/22/24 11:09 Temperature Pulse Rate 82 92 72 Respiratory Rate 20 20 Blood Pressure Pulse Oximetry Oxygen Delivery Oxygen Flow Rate 10/22/24 11:30 10/22/24 11:35 10/22/24 11:35 Temperature Pulse Rate 109 H Respiratory Rate Blood Pressure Pulse Oximetry 87 L 92 87 L Oxygen Delivery Room Air Nasal Cannula Nasal Cannula Oxygen Flow Rate 1 1 10/22/24 11:36 10/22/24 11:42 10/22/24 11:45 Temperature Pulse Rate 91 88 Respiratory Rate 20 Blood Pressure 159/77 H Pulse Oximetry 90 96 94 Oxygen Delivery Nasal Cannula Nasal Cannula Oxygen Flow Rate 2 1 10/22/24 12:00 10/22/24 12:00 10/22/24 14:00 Temperature Pulse Rate 91 98 97 Respiratory Rate 20 Blood Pressure Pulse Oximetry 96 Oxygen Delivery Nasal Cannula Oxygen Flow Rate 2 10/22/24 14:23 10/22/24 14:38 10/22/24 15:28 Temperature 97.4 F L Pulse Rate 99 105 H 98 Respiratory Rate 20 20 20 Blood Pressure 128/65 Pulse Oximetry 92 Oxygen Delivery Oxygen Flow Rate Intake/Output Intake/Output: Intake & Output 10/19/24 10/20/24 10/21/24 10/22/24 23:59 23:59 23:59 23:59 Intake Total 360 1650 2100 760 Output Total 950 3000 2700 1375 Balance -145 -1350 -600 -615 Meds/Results Medications: Active Medications Generic Name Dose Route Start Last Admin Trade Name Freq PRN Reason Stop Dose Admin Acetaminophen 650 mg 10/12/24 20:30 10/19/24 08:29 Acetaminophen 325 Mg Tablet PO 650 mg Q4H PRN Administration Mild Pain (1-3) or Fever Al Hydrox/Mg Hydrox/Simethicone 30 ml 10/19/24 15:25 Mag Hydrox/Al Hydrox/Simeth 30 Ml Udc PO Q6H PRN Indigestion Alprazolam 0.25 mg 10/17/24 08:50 Alprazolam (*Crx) 0.25 Mg Tablet PO Q6H PRN Anxiety Dextrose 12.5 gm 10/12/24 20:30 Dextrose 50% 25 Gm/50 Ml Syringe IV PUSH PRN PRN Hypoglycemia Protocol Diltiazem HCl 120 mg 10/13/24 09:00 10/22/24 08:28 Diltiazem Hcl Cd 120 Mg Cap.24hr PO 120 mg DAILY ANIYA Administration Flecainide Acetate 100 mg 10/13/24 17:40 10/22/24 08:29 Flecainide Acetate 100 Mg Tablet PO 100 mg Q12HR ANIYA Administration Glucose 15 gm 10/12/24 20:30 Glucose Oral Gel 15 Gm Of Glucse In 37.5 Gm Tube PO PRN PRN Hypoglycemia Protocol Guaifenesin 1,200 mg 10/14/24 21:00 10/22/24 08:27 Guaifenesin 12 Hr 600 Mg Tabcr PO 1,200 mg Q12HR ANIYA Administration Hydralazine HCl 10 mg 10/17/24 08:50 Hydralazine Hcl 20 Mg/Ml Vial IV PUSH Q6H PRN Blood Pressure - High Dextrose 1,000 mls @ 100 mls/hr 10/12/24 20:30 Dextrose 5% 1,000 Ml IVPB PRN PRN Hypoglycemia Protocol Ipratropium [place] 0.5 mg 10/19/24 09:54 10/21/24 14:25 Ipratropium Br 0.02% Inh Soln 0.5 Mg/2.5 Ml Vial INHALATION 0.5 mg Q4HRT PRN Administration Shortness Of Breath Levalbuterol HCl 0.63 mg 10/19/24 09:54 10/22/24 14:22 Levalbuterol Neb 1.25 Mg/3 Ml INHALATION 0.63 mg Q4HRT PRN Administration Wheezing Magnesium Oxide 400 mg 10/15/24 09:00 10/22/24 08:29 Magnesium Oxide 400 Mg Tablet PO 400 mg DAILY ANIYA Administration Mirabegron 25 mg 10/13/24 09:00 10/19/24 08:29 Mirabegron 25 Mg Er Tablet PO 25 mg DAILY ANIYA Administration * Home Med * ( 2 each 10/19/24 12:35 10/22/24 11:08 [place]) Budesonide/ INHALATION 11/18/24 12:34 2 each Glycopyrrolate/ Q12HRT ANIYA Administration Formoterol Fumarate 160 Mcg-9 Mcg-4.8 Mcg Pantoprazole Sodium 40 mg 10/20/24 09:00 10/22/24 08:30 Pantoprazole 40 Mg Tablet PO 40 mg QAM ANIYA Administration Polyethylene Glycol 17 gm 10/16/24 18:15 10/22/24 08:30 Polyethylene Glycol 3350 17 Gm Powd.Pack PO Not Given QAM ANIYA Pravastatin Sodium 20 mg 10/12/24 23:40 10/21/24 20:08 Pravastatin Sodium 20 Mg Tablet PO 20 mg HS ANIYA Administration Rivaroxaban 15 mg 10/14/24 21:00 10/21/24 20:08 Rivaroxaban 15 Mg Tablet PO 15 mg 2100 ANIYA Administration Senna/Docusate Sodium 1 tab 10/16/24 18:25 10/22/24 16:27 Senna/Docusate Sodium Tablet PO Not Given BID ANIYA Simethicone 125 mg 10/19/24 21:31 10/22/24 09:38 Simethicone 125 Mg Chew Tab PO 125 mg QID PRN Administration gas, bloating Tamsulosin HCl 0.4 mg 10/22/24 09:10 10/22/24 09:36 Tamsulosin Hcl 0.4 Mg Capsule PO 0.4 mg QAM ANIYA Administration Radiology Results: ITS Impressions Chest CT 10/12/24 19:30 IMPRESSION: Scattered small, likely infectious/inflammatory foci, overlying a background of severe emphysematous change and largely stable areas of parenchymal scarring. Mild esophagitis/gastritis. Hepatic steatosis. Venous Doppler Study 10/16/24 11:25 IMPRESSION: 1. No deep venous thrombosis. Chest X-Ray 10/20/24 07:05 IMPRESSION: Chronic interstitial change with mild pulmonary vascular congestion and a small right-sided pleural effusion. Labs Labs: Laboratory Results - last 24 hr 10/22/24 10/22/24 05:24 09:03 WBC 11.7 H RBC 3.85 L Hgb 11.9 L Hct 37.8 MCV 98.2 MCH 30.9 MCHC 31.5 L RDW 13.2 Plt Count 251 MPV 10.1 Sodium 140 Potassium 3.2 L Chloride 100 Carbon Dioxide 36 H Anion Gap 4 BUN 9 D Creatinine 0.85 Estim Creat Clear Calc 34 Estimated GFR > 60 Glucose 96 Calcium 9.2 Urine Color Yellow Urine Appearance Cloudy H Urine pH 7.5 Ur Specific [place] 1.008 Urine Protein Negative Urine Glucose (UA) Negative Urine Ketones Negative Ur Blood (Man) 3+ H Urine Nitrate Negative Urine Bilirubin Negative Urine Urobilinogen 0.2 Leukocyte Esterase Rfl 1+ H Urine RBC >100 H Urine WBC 11-20 H Ur Squamous Epith Cells Occasional Urine Bacteria None seen Urine Casts 3-5
[2024-10-22] MEDS: IPRATROPIUM BR 0.02% INH SOLN 0.5 MG/2.5 ML VIAL INHALATION (20:13)
[2024-10-22] MEDS: PRAVASTATIN SODIUM 20 MG TABLET PO (21:51)
[2024-10-22] MEDS: RIVAROXABAN 15 MG TABLET PO (21:53)
[2024-10-23] VITALS (7 sets, daily range): BP systolic 122–125; BP diastolic 51–59; PULSE 88–91; RESP 18–20; TEMP 36.5–36.9; O2SAT 94–96
[2024-10-23] MEDS: ACETAMINOPHEN 325 MG TABLET 650 MG PO (05:58)
[2024-10-23] MEDS: guaiFENesin 12 HR 600 MG TABCR 1200 MG PO (08:24)
[2024-10-23] MEDS: TAMSULOSIN HCL 0.4 MG CAPSULE PO (08:24)
[2024-10-23] MEDS: FLECAINIDE ACETATE 100 MG TABLET PO (08:24)
[2024-10-23] MEDS: dilTIAZem HCL CD 120 MG CAP.24HR PO (08:24)
[2024-10-23] MEDS: PANTOPRAZOLE 40 MG TABLET PO (08:24)
[2024-10-23] MEDS: SIMETHICONE 125 MG CHEW TAB PO (08:25)
[2024-10-23] MEDS: MAGNESIUM OXIDE 400 MG TABLET PO (08:25)
[2024-10-23] MEDS: [UNRECOGNIZED DRUG - OTHER] INHALATION (08:56)
[2024-10-23] MEDS: GLYCOPYRROLATE INHALATION (08:56)
[2024-10-23] MEDS: FORMOTEROL FUMARATE INHALATION (08:56)
[2024-10-23] MEDS: BUDESONIDE INHALATION (08:56)
[2024-10-23] MEDS: LEVALBUTEROL NEB 1.25 MG/3 ML 0.63 MG INHALATION (09:33)
[2024-10-23] MEDS: IPRATROPIUM BR 0.02% INH SOLN 0.5 MG/2.5 ML VIAL INHALATION (09:34)
--- NOTE | 2024-10-23 11:32 | PCPTNOTE ---
Attempted to see patient for PT, however patient just got her lunch.
--- NOTE | 2024-10-23 13:47 | PCPTNOTE ---
Attempted to see patient for PT, however patient refused due to anticipated discharge.
--- NOTE | 2024-10-23 14:23 | P.DS_ITS ---
DS: Admitting Diagnosis Discharge Date 10/23/2024 Admitting Diagnosis Shortness of breath and cough DS: Discharge Diagnosis Discharge Diagnosis (1) COPD (chronic obstructive pulmonary disease): Code(s): J44.9 - Chronic obstructive pulmonary disease, unspecified Status: Acute (2) Acute on chronic respiratory failure with hypoxia and hypercapnia: Code(s): J96.21 - Acute and chronic respiratory failure with hypoxia; J96.22 - Acute and chronic respiratory failure with hypercapnia Status: Acute (3) RADHA (acute kidney injury): Code(s): N17.9 - Acute kidney failure, unspecified Status: Acute DS: Summary Hospital Course Hospital Course: This is a 74-year-old female with a past medical history prior tobacco abuse, COPD and chronic respiratory failure on 3 L nasal cannula continuously, atrial fibrillation on Xarelto, hypertension, hypercholesterolemia, polycythemia secondary to hypoxia, pulmonary nodule. She is accompanied by her who she lives with and her daughter. The patient quit smoking 2 years prior and has not been hospitalized since then either. She has been in her normal state of health and does not frequently use her inhalers or nebulizers. In the past 2 days she has used them multiple times due to shortness of breath and a cough productive of green/whitfield sputum. She denies chest pain. On 10/11/2024 the patient presents to [place] [facility] due to severe difficulty breathing. ER nurse practitioner note patient was tripoding on arrival. Tachypnea with respiratory rate 24-27. Vitals otherwise stable. WBC 14.4, hemoglobin 15.4, . Patient was managed for COPD exacerbation, RSV infection and Pneumonia CT Chest showed bilateral foci of infection/inflammation Patient completed short course steroid, antibiotics and bronchodilators. successfully weaned off to baseline oxygen. Received IVF and renal function resolved to baseline, Cr 0.85. She was also managed for urinary retention, failed voiding trial. On tamsulosin, and will followup with Urology outpatient. Continue other home meds along with Miralax for constipation. Patient will follow up with PCP in 3-5 days, f/u with Urology referral. Time Spent with Patient Time attestation: Total time spent providing and/or coordinating discharge services: Discharge Plan Discharge Attending physician on discharge: Jayshree Sorto Consulting providers: Derek Rogers; Tunde Carter Discharging Clinician: Jayshree Sorto Anticipated Discharge Date/Time: 10/23/24 14:09 Patient Disposition: Home Health Service Activity: as tolerated Diet: regular Discharge Instructions: Care Coordination: Patient to have [facility] for PT/OT eval and treat, and group home. Their phone number is [phone] if you have any questions; they will contact you to schedule their first visit. RN Please fax discharge instructions to [phone]. Patient Instructions: Hypercoagulation (GEN), Hypoxia (GEN), Blood Thinners (GEN), RSV (Respiratory Syncytial Virus) Infection (DC) Patient Language: Moldovan Stand Alone Forms: General Discharge Information Follow-up/Referrals: Sumanth,MD Eulalia [Primary Care Provider] - (F/u with PCP in 3-5 days ) Discharge Medications: New polyethylene glycol 3350 [Miralax] 17 gram Powder In Packet 17 g PO QAM 7 Days Qty: 7 0RF tamsulosin 0.4 mg Capsule 0.4 mg PO QAM 30 Days Qty: 30 0RF Continued azithromycin 250 mg tablet 500 mg PO 3XW Qty: 36 6RF azithromycin 250 mg tablet See Rx Instructions PO .COMPLEX Qty: 6 0RF Rx Instructions: take 500 mg today (day 1), then 250 mg for 4 days (days 2-5) PO pravastatin 20 mg tablet 20 mg PO HS acetaminophen 500 mg Tablet 500 mg PO TID PRN (Reason: Pain) diltiazem HCl 120 mg capsule,extended release 24hr 120 mg PO DAILY flecainide 100 mg Tablet 100 mg PO Q12HR Qty: 30 0RF Xarelto 15 mg tablet 15 mg PO 1700 Qty: 30 1RF Breztri Aerosphere 160-9-4.8 mcg/actuation HFA aerosol inhaler 2 inh inhalation BID magnesium oxide 400 mg (241.3 mg magnesium) tablet 400 mg PO DAILY mirabegron [Myrbetriq] 25 mg Tablet Extended Release 24 Hr 25 mg PO DAILY 30 Days Qty: 30 0RF (DME) ELIDIA on 2L oxygen See Rx Instructions .Route .MEDSUPPLY Qty: 1 0RF Rx Instructions: Overnight Oximetry on 2 L/Min oxygen Diagnosis: j44.9 Length of Need: Lifetime DME: [facility] [phone] Derek Rogers MDNPI: [id number] levalbuterol HCl 1.25 mg/3 mL solution for nebulization 1.25 mg inhalation Q4H Qty: 90 6RF levalbuterol tartrate 45 mcg/actuation HFA aerosol inhaler See Rx Instructions .ROUTE .COMPLEX Qty: 15 6RF Dose Instruction: INHALE 2 PUFFS BY MOUTH EVERY 6 HOURS NEEDED FOR SHORTNESS OF BREATH AND FOR WHEEZING Rx Instructions: INHALE 2 PUFFS BY MOUTH EVERY 6 HOURS NEEDED FOR SHORTNESS OF BREATH AND FOR WHEEZING [id number]-[id number]-arrqqgssmw 160-9-4.8 mcg/actuation HFA aerosol inhaler 2 inh inhalation BID Qty: 10.7 6RF Date of admission: 10/13/24 08:08 Primary Care Provider: Sumanth,Eulalia Admitting Provider: Bruna Hathaway Attending physician on admission: Bruna Hathaway Condition: Serious
== END 2024-10-23 15:25 | disposition home health service (06) | DRG 871 ==
LOC: ANHED 21:23 → ANHIMU 21:45
PROVIDERS: Hospitalist; Internal Medicine Pulmonary Disease; Nurse Practitioner Gerontology; Admitting Provider General Practice; Emergency Provider Physician Assistant; PCP Internal Medicine; Visit Provider Internal Medicine
DX: A41.9 Sepsis, unspecified organism (principal); J18.9 Pneumonia, unspecified organism; J96.21 Acute and chronic respiratory failure with hypoxia; J96.22 Acute and chronic respiratory failure with hypercapnia; T83.511A Infection and inflammatory reaction due to indwelling urethral catheter, initial encounter; N39.0 Urinary tract infection, site not specified; J44.1 Chronic obstructive pulmonary disease with (acute) exacerbation; N17.9 Acute kidney failure, unspecified; J44.0 Chronic obstructive pulmonary disease with (acute) lower respiratory infection; S37.39XA Other injury of urethra, initial encounter; Z16.21 Resistance to vancomycin; B95.2 Enterococcus as the cause of diseases classified elsewhere; R31.9 Hematuria, unspecified; R33.0 Drug induced retention of urine; B97.4 Respiratory syncytial virus as the cause of diseases classified elsewhere; R65.20 Severe sepsis without septic shock; D75.1 Secondary polycythemia; E78.00 Pure hypercholesterolemia, unspecified; H40.9 Unspecified glaucoma; I48.0 Paroxysmal atrial fibrillation; I10 Essential (primary) hypertension; K59.00 Constipation, unspecified; R91.1 Solitary pulmonary nodule; Z87.891 Personal history of nicotine dependence; Z99.81 Dependence on supplemental oxygen; Z79.01 Long term (current) use of anticoagulants; Z20.822 Contact with and (suspected) exposure to COVID-19
CPT/HCPCS: 36415; 36600; 71045; 71260; 80048; 80053; 81001; 82375; 82805; 83050; 83605; 83735; 83880; 84145; 84484; 85018; 85025; 85027; 85610; 85730; 86738; 87040; 87086; 87181; 87449; 87637; 87641; 87899; 93005; 93306; 93971; 94002; 94003; 94618; 94640; 94660; 96361; 96365; 96366; 96367; 96375; 96376; 97110; 97161; 97165; 97530; 99285; A9270; G0378; J0456; J0696; J2919; J3370; J7030; J7040; J7512; Q9967